=== PATIENT | male | born 1965 | race Caucasian/White ===

== ENCOUNTER 2016-08-02 01:42 | Inpatient (IN) | payer OTHER ==
[~2016-08-02] VITALS: Ht 185.4 cm; Wt 95.8 kg
[~2016-08-02 01:42] MED LIST: ALBU18HF INHALATION; ASPI81TA3 PO; CARV3.1260 PO; FLUO40CA10 PO; FURO-110 PO; FURO20TA3 PO; LANT3I SC; MIRT30TA PO
[2016-08-02] MEDS ORDERED: SOD CHLORIDE 0.9% 1,000 ML IV STA (01:47)
[2016-08-02] MEDS ORDERED: ASPIRIN 325 MG TAB PO STA (01:47)
[2016-08-02 01:49] VITALS: Ht 185.4 cm; Wt 95.8 kg
[2016-08-02] MEDS ORDERED: AMIODARONE 150MG/D5W BOLUS 100 ML IV ONE (02:00)
[2016-08-02] MEDS ORDERED: AMIODARONE 900 MG in DEXTROSE 5% 482 ML IV SCH (02:00)
--- NOTE | 2016-08-02 02:07 | ERA ---
ER Documentation Chief Complaint Date/Time DATE: 08/02/16 TIME: 02:01 Chief Complaint called ems for weakness with witnessed cardiac arrest by rescue 89 HPI Patient is a 51-year-old gentleman who apparently had EMS come to him earlier today for dizziness and passing out. He refused to go with EMS at that time. He then had EMS called out to him once again for weakness dizziness and passing out. He was ambulating to the ambulance when he passed out in front of them and had seizure-like activity. He fell to the ground and they attached the AED to him as they noted he was apneic and pulseless. Patient was noted to have V. tach at that time. They electrically cardioverted him at which point he regained his pulse and spontaneous respirations. They transported him here for further evaluation and treatment. At this time the patient's complaints involve only a headache where he states he fell to the ground and hit his head. He admits to me that he uses alcohol and drugs including marijuana and methamphetamines. He states last time he used methamphetamines was 2 days ago. He says he has been told in the past that he has heart problems but is not sure what his heart problems are. He says he does not have any stents and he has never had any heart surgery. He says he is not been having any chest pain per se and does not feel short of breath. He says just before he feels dizzy and passes out he does feel like his heart is beating funny. He has not had any recent fever, coughing, congestion, rhinorrhea, sore throat, or otalgia. He has not been sick with any nausea, vomiting, or diarrhea. The remainder of the systems are negative. ROS All systems reviewed and are negative except as per history of present illness. Medications Home Meds Active Scripts Insulin Glargine* (Lantus*) 100 Unit/Ml Soln, 12 UNIT SC QHS, #1 VIAL Please dispense 15 syringes and needles. Prov:KACY JESSICA NP 04/10/16 Carvedilol* (Carvedilol*) 3.125 Mg Tablet, 3.125 MG PO BID, #30 TAB Prov:KACY JESSICA. MELYSSA 04/10/16 Furosemide* (Furosemide*) 20 Mg Tablet, 20 MG PO BID, #30 TAB Prov:KACY JESSICA NP 04/10/16 Aspirin* (Aspirin* Chew) 81 Mg Tab.chew, 81 MG PO DAILY, #15 TAB.CHEW Prov:KACY JESSICA NP 04/10/16 Albuterol Sulfate* (Ventolin HFA*) 18 Gm Hfa.aer.ad, 2 PUFF INHALATION Q4H, #1 INHALER Prov:KACY JESSICA NP 04/10/16 Insulin Glargine* (Lantus*) 100 Unit/Ml Soln, 12 UNIT SC QHS, #1 VIAL Prov:PHILIPP YOUNG NP 02/11/16 Furosemide* (Lasix*) 20 Mg Tablet, 20 MG PO BID for 30 Days, TAB Prov:PHILIPP YOUNG NP 02/11/16 Aspirin (Aspirin) 81 Mg Chew, 81 MG PO DAILY for 30 Days, TAB Prov:PHILIPP YOUNG NP 02/11/16 Carvedilol* (Carvedilol*) 3.125 Mg Tablet, 3.125 MG PO BID for 30 Days, TAB Prov:PHILIPP YOUNG NP 02/11/16 Reported Medications Albuterol Sulfate* (Ventolin HFA*) 18 Gm Hfa.aer.ad, 2 PUFF INHALATION Q4H, #1 INHALER 02/06/16 Mirtazapine* (Remeron*) 30 Mg Tablet, 30 MG PO BID, TAB 02/06/16 Fluoxetine Hcl* (Prozac*) 40 Mg Capsule, 80 MG PO BID, CAP 02/06/16 Allergies Allergies: Coded Allergies: erythromycin base (Verified Allergy, Unknown, hives, SOB, 04/10/16) PMhx/Soc History of Surgery: Yes (R knee) Anesthesia Reaction: No Hx Neurological Disorder: No Hx Respiratory Disorders: Yes (asthma) Hx Cardiac Disorders: Yes (HTN, cardiac arrest 08/02/16) Hx Psychiatric Problems: Yes (Depression, anxiety, paranoid schizophrenia, bipolar) Hx Miscellaneous Medical Probl: Yes (DM, stroke) Hx Alcohol Use: Yes (quit after dmm dx) Hx Substance Use: Yes (meth and marijuana) Hx Tobacco Use: Yes (quit 1 month) Smoking Status: Former smoker FmHx Family History: coronary disease, diabetes Physical Exam Vitals Vital Signs Date Time Temp Pulse Resp B/P Pulse Ox O2 Delivery O2 Flow Rate FiO2 08/02/16 01:58 Non Rebreather 15 08/02/16 01:49 Non Rebreather 15.0 08/02/16 01:49 97.7 114 24 130/114 Physical Exam Const: [] Well-developed well-nourished male lying on the bed in mild distress. Head: Atraumatic normocephalic Eyes: Normal Conjunctiva ENT: Normal External Ears, Nose and Mouth. Neck: Full range of motion..~ No meningismus. Resp: Clear to auscultation bilaterally Cardio: Tachycardic regular rhythm, no murmurs Abd: Soft, non tender, non distended. Normal bowel sounds Skin: No petechiae or rashes Back: No midline or flank tenderness Ext: No cyanosis, or edema Neur: Awake and alert, oriented 3, GCS of 15, nonfocal Psych: Normal Mood and Affect Result Diagram: 08/02/168 08/02/16 0158 Results 24 hrs Laboratory Tests Test 08/02/16 01:58 Activated Partial Thromboplast Time 26.5Sec Alanine Aminotransferase (ALT/SGPT) 28IU/L Albumin 3.9g/dl Albumin/Globulin Ratio 1.08 Alkaline Phosphatase 97IU/L Anion Gap 29 Aspartate Amino Transf (AST/SGOT) 39IU/L Basophils # 0.010^3/ul Basophils % 0.3% Blood Urea Nitrogen 41mg/dl Calcium Level 9.2mg/dl Carbon Dioxide Level 13mmol/L Chloride Level 109mmol/L Creatinine 1.81mg/dl Direct Bilirubin 0.00mg/dl Eosinophils # 0.010^3/ul Eosinophils % 0.3% Ethyl Alcohol Level < 10.0mg/dl Globulin 3.60g/dl Glucose Level 152mg/dl Hematocrit 47.2% Hemoglobin 14.4g/dl INR International Normalized Ratio 1.56 Indirect Bilirubin 0.9mg/dl Lymphocytes # 2.410^3/ul Lymphocytes % 22.9% Mean Corpuscular Hemoglobin 27.6pg Mean Corpuscular Hemoglobin Concent 30.5g/dl Mean Corpuscular Volume 90.6fl Mean Platelet Volume 11.2fl Monocytes # 0.710^3/ul Monocytes % 6.4% Neutrophils # 7.210^3/ul Neutrophils % 68.9% Nucleated Red Blood Cells # 0.010^3/ul Nucleated Red Blood Cells % 0.4/100WBC Platelet Count 24797^3/UL Potassium Level 5.4mmol/L Prothrombin Time 18.8Sec Prothrombin Time Ratio 1.5 Red Blood Count 5.2110^6/ul Red Cell Distribution Width 20.8% Sodium Level 146mmol/L Total Bilirubin 0.9mg/dl Total Protein 7.5g/dl Troponin I 0.059ng/ml White Blood Count 10.410^3/ul Current Medications Medications (Trade) Dose Ordered Sig/Bradley Route PRN Reason Start Time Stop Time Status Last Admin Dose Admin Sodium Chloride (NS) 1,000 ml @ 1,000 mls/hr Q1H STAT IV 08/02/16 01:47 08/02/16 02:46 DC 08/02/16 02:38 Aspirin 325 mg 325 mg ONCE STAT PO 08/02/16 01:47 08/02/16 01:51 DC 08/02/16 02:38 Amiodarone HCl 100 ml @ 600 mls/hr ONCE ONCE IV 08/02/16 02:00 08/02/16 02:09 DC 08/02/16 02:37 Amiodarone HCl/ Dextrose (Cordarone Iv/ D5W) 500 ml @ 0 mls/hr Q0M IV 08/02/16 02:00 08/03/16 01:59 08/02/16 03:15 Procedures/MDM Differential includes but is not limited to, V. tach, respiratory arrest, cardiac arrest, cardiomyopathy secondary to alcohol and drug abuse, acute myocardial ischemia, electrolyte disturbance CT of the head shows encephalomalacia consistent with a prior infarct but no acute findings per the radiologist Chest x-ray shows cardiomegaly but no acute congestive heart failure or pulmonary edema CT of the abdomen and pelvis shows findings of possible colitis patient also has findings consistent with a ascites EKG demonstrates sinus tachycardia 105 bpm patient has Q waves noted in leads III and aVF, poor R-wave progression noted across the precordium with nonspecific ST-T wave flattening, no acute ST changes consistent with acute ischemia noted, no old EKG available for comparison Repeat EKG demonstrates no acute changes compared to the prior EKG Patient has been on amiodarone drip now for control of his prior V. tach. He has not had any recurrent V. tach. I have a call out to Dr. Domingo to have the patient admitted to the CCU. critical care time of 1 hour not to include procedures. 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
[2016-08-02 02:16] LABS: ADD SCAN DIFF NO
[2016-08-02 02:21] LABS: BASOPHILS % 0.3 % (0.0-2.0); EOSINOPHILS % 0.3 % (0.0-7.0); HEMATOCRIT 47.2 % (42.0-52.0); HEMOGLOBIN 14.4 g/dl (14.0-18.0); LYMPHOCYTES # 2.4 10^3/ul (0.8-2.9); LYMPHOCYTES % 22.9 % (15.0-51.0); MEAN CORPUSCULAR HEMOGLOBIN 27.6 pg (29.0-33.0); MEAN CORPUSCULAR HGB CONC 30.5 g/dl (32.0-37.0); MEAN CORPUSCULAR VOLUME 90.6 fl (82.0-101.0); MEAN PLATELET VOLUME 11.2 fl (7.4-10.4); MONOCYTE # 0.7 10^3/ul (0.3-0.9); MONOCYTES % 6.4 % (0.0-11.0); NEUTROPHIL # 7.2 10^3/ul (1.6-7.5); NEUTROPHILS % 68.9 % (39.0-77.0); NUCLEATED RED BLOOD CELLS% 0.4 /100WBC (0.0-0.0); PLATELET COUNT 197 10^3/UL (140-415); RED BLOOD COUNT 5.21 10^6/ul (4.70-6.10); RED CELL DISTRIBUTION WIDTH 20.8 % (11.5-14.5); WHITE BLOOD COUNT 10.4 10^3/ul (4.8-10.8)
--- NOTE | 2016-08-02 02:23 | RADRPT ---
PROCEDURE: CT BRAIN WITHOUT CONTRAST CLINICAL INDICATION: 51-year-old male with syncope and trauma. TECHNIQUE: The study was performed utilizing [employer] VCT 64-slice CT scanner. Direct axial sections were obtained from the foramen magnum to the vertex without the use of intravenous contrast material. Sagittal and coronal reformations were obtained. Automated exposure control and iterative reconstruction techniques were utilized for this examination. The images were viewed on a PACS wor kstation. CTD/vol = 38.8 mGy; Total Exam DLP = 634.2 mGy-cm. COMPARISON: CT brain February 08, 2016. FINDINGS: There is mild motion artifact limiting the evaluation to some extent. There is mild prominence of t he sulci and cisternal spaces consistent with diffuse volume loss. Otherwise, the ventricles have a normal shape and position. There is no evidence for mass effect or midline shift. There has interva l development of old lacunar infarct within the right basal ganglia. There is focal right parietal encephalomalacia consistent with a watershed infarct. There is a small nonspecific ovoid calcific de nsity within the right suprasellar cistern measuring 5 x 4 x 4 mm without interval change. There is no evidence for acute intra or extra-axial blood. The bony calvarium is intact. The visualized paran leila sinuses and right mastoid air cells are without abnormal soft tissue. No air-fluid levels are n oted. There is fluid identified within the left mastoid air cells and epitympanum consistent with ot omastoid disease. IMPRESSION: 1. Motion artifact. 2. Mild diffuse volume loss. 3. Old right basal ganglia lacunar infarct. 4. Focal right parietal encephalomalacia consistent with a prior watershed infarct. 5. Nonspecific ovoid calcific density within the right suprasellar cistern without interval change. 6. Left otomastoid disease. .Neeraj Melvin MD, MD Date Time Electronically viewed and signed by .Neeraj Melvin MD, MD on 08/02/2016 02:23 .Sanjuanita/
[2016-08-02 02:32] LABS: INR 1.56; PROTIME 18.8 Sec (12.2-14.2); PT RATIO 1.5
[2016-08-02 02:33] LABS: PARTIAL THROMBOPLASTIN TIME 26.5 Sec (25.0-35.0)
[2016-08-02 02:37] LABS: ALBUMIN 3.9 g/dl (3.3-4.9)
[2016-08-02 02:38] LABS: POTASSIUM 5.4 mmol/L (3.5-5.1)
[2016-08-02 02:40] LABS: ALBUMIN/GLOBULIN RATIO 1.08; BILIRUBIN,INDIRECT 0.9 mg/dl (0-1.1); BILIRUBIN,TOTAL 0.9 mg/dl (0.2-1.3); CALCIUM 9.2 mg/dl (8.4-10.2); CREATININE 1.81 mg/dl (0.61-1.24); TOTAL PROTEIN 7.5 g/dl (6.1-8.1)
--- NOTE | 2016-08-02 02:42 | RADRPT ---
PROCEDURE: XR Chest. CLINICAL INDICATION: Chest pain. TECHNIQUE: Single frontal chest x-ray. COMPARISON: 03/19/2016 FINDINGS: Heart is enlarged.. There is no CHF.. There is hypoventilation with minimal right basilar atelectas is.. There is no pleural effusion. There is no pneumothorax. The osseous structures are unremarka ble. IMPRESSION: Cardiomegaly. No CHF. Hypoventilation with minimal right basilar atelectasis RPTAT: HMVK .Patel Amato MD, Date Time Electronically viewed and signed by .Patel Amato MD, on 08/02/2016 02:41 .K/
[2016-08-02 02:51] LABS: TROPONIN-I 0.059 ng/ml (0.00-0.12)
--- NOTE | 2016-08-02 04:07 | RADRPT ---
PROCEDURE: CT abdomen and pelvis without intravenous contrast. CLINICAL INDICATION: Pain. TECHNIQUE: CT of the abdomen/pelvis was performed utilizing axial images with reconstructions in s agittal and coronal planes. The administered radiation dose is CTDI 14.2 mGy, DLP 906.3 mGy-cm. COMPARISON: No pertinent prior examinations were submitted for comparison. FINDINGS: Visualized Chest: The visualized lung bases are clear. Abdomen: The spleen, pancreas, gallbladder,and adrenal glands are unremarkable. The liver is diffusely dec reased in attenuation, compatible with hepatic steatosis. The kidneys are without hydronephrosis. No definite urinary calculi are seen. There is no evidence of bowel obstruction. The appendix is normal. No intra-abdominal free air is seen. There is some segmental thickening of the right colon and mid to distal transverse colon. There is moderate intra-abdominal ascites. Pelvis: There is moderate ascites within the pelvis. The prostate is unremarkable. The urinary bladder is collapsed around a urinary catheter. There are small bilateral inguinal hernias. Both testicles ar e seen within the inguinal canals. No pelvic adenopathy is identified Osseous structures: Unremarkable. IMPRESSION: Moderate ascites. Hepatic steatosis. Segmental thickening of the right colon and distal transverse colon which may be related to ascites or colitis. Retractile testicles. RPTAT: HIKT .Adolfo Hennessy MD, MD Date Time Electronically viewed and signed by .Adolfo Hennessy MD, on 08/02/2016 04:06 .T/
[2016-08-02] MEDS ORDERED: DIPHENHYDRAMINE 50 MG INJ IV ONE (05:30)
[2016-08-02] MEDS ORDERED: HALOPERIDOL 5 MG INJ IV ONE (05:30)
[2016-08-02] MEDS ORDERED: SOD CHLORIDE 0.9% 1,000 ML IV ONE ×2 (08:00→20:30)
[2016-08-02] MEDS ORDERED: Discontinue Glyburide, Glipizide, and/or Glimepiride prior to starting Insulin XX ONE (09:00)
[2016-08-02] MEDS ORDERED: FUROSEMIDE 20 MG TAB PO SCH ×2 (09:00→10:15)
[2016-08-02] MEDS ORDERED: NITROGLYCERIN (SL) 0.4 MG TAB SL PRN (09:00)
[2016-08-02] MEDS ORDERED: ALBUTEROL HFA 8 GM INHALER INH SCH (09:00)
[2016-08-02] MEDS ORDERED: ONDANSETRON 4 MG INJ IV PRN (09:00)
[2016-08-02] MEDS ORDERED: LORAZEPAM 2 MG INJ IV PRN (09:00)
[2016-08-02] MEDS ORDERED: MAGNESIUM HYDROXIDE 30ML CUP PO PRN (09:00)
[2016-08-02] MEDS ORDERED: ASPIRIN 81 MG TAB PO SCH (09:00)
[2016-08-02] MEDS ORDERED: HYPOGLYCEMIA PROTOCOL when Glucose is <70 mg/dL or symptomatic <90 mg/dL. XX ONE (09:00)
[2016-08-02] MEDS ORDERED: FLUMAZENIL 0.5 MG INJ IV PRN (09:00)
[2016-08-02] MEDS ORDERED: ACETAMINOPHEN 650MG/20.3ML CUP PO PRN (09:00)
[2016-08-02] MEDS ORDERED: ACETAMINOPHEN 325 MG TAB PO PRN (09:00)
[2016-08-02] MEDS: MIRTAZAPINE 15 MG TAB PO SCH ×2 (09:00→23:14)
[2016-08-02] MEDS ORDERED: DOCUSATE SODIUM 100 MG CAP PO PRN (09:00)
[2016-08-02] MEDS: ASPIRIN 81 MG TAB PO SCH (09:00)
[2016-08-02] MEDS ORDERED: BISACODYL (EC) 5 MG TAB PO PRN (09:00)
[2016-08-02] MEDS: ALBUTEROL HFA 8 GM INHALER INH SCH ×2 (09:00→13:00)
[2016-08-02] MEDS ORDERED: NALOXONE (0.4 MG/ML) INJ IV PRN (09:00)
[2016-08-02] MEDS: FLUOXETINE 20 MG CAP PO SCH (09:00)
[2016-08-02] MEDS ORDERED: GLUCOSE GEL 15 GRAM TUBE PO PRN ×2 (10:00)
[2016-08-02] MEDS ORDERED: DEXTROSE 50% 50 ML SYRINGE IV PRN ×2 (10:00)
[2016-08-02] MEDS ORDERED: GLUCOSE GEL 15 GRAM TUBE BUCCAL PRN (10:00)
[2016-08-02] MEDS ORDERED: GLUCAGON 1 MG INJ IM PRN (10:00)
[2016-08-02 10:14] LABS: AADO2 Arterial 30.7 mmHg (7.0-24.0); Allen Test ACCEPTAB; Arterial Base Excess -22.9 mmol/L (-3.0-3); Arterial COHb 0.5 % (0.0-3.0); Arterial Fraction of Oxyhgb 96.8 % (93.0-99.0); Arterial HCO3 4.6 mmol/L (22.0-26.0); Arterial MetHb 0.3 % (0.0-1.5); Arterial Total Hemglobin 15.4 g/dl (12.0-18.0); MODE NASAL CANNULA
[2016-08-02 10:16] LABS: CK-MB 6.21 ng/ml (0.0-2.4)
[2016-08-02 10:17] LABS: TROPONIN-I 0.105 ng/ml (0.00-0.12)
[2016-08-02] MEDS: INSULIN ASPART [NOVOLOG] 3 ML PEN SC SCH (12:00)
--- NOTE | 2016-08-02 12:51 | QN ---
Documentation Comment [id number] ANDREAS FRANCISCO MD Aug 02, 2016 12:51
[2016-08-02 13:19] LABS: CHOL/HDL RATIO 6.5 RATIO
[2016-08-02 15:13] LABS: CK-MB 7.18 ng/ml (0.0-2.4)
[2016-08-02 15:14] LABS: TROPONIN-I 0.127 ng/ml (0.00-0.12)
[2016-08-02 16:29] LABS: HEMATOCRIT 48.1 % (42.0-52.0); HEMOGLOBIN 13.8 g/dl (14.0-18.0)
[2016-08-02] MEDS ORDERED: DEXTROSE 50% 50 ML SYRINGE IV STA (16:31)
--- NOTE | 2016-08-02 16:44 | HP ---
DATE OF ADMISSION: 08/02/2016 HISTORY OF PRESENT ILLNESS: Humberto Hopkins is a 51-year-old male who has a history of systolic heart failure, cardiomyopathy, ejection fraction 25%, non- ST elevation myocardial infarction, history of CKD, transaminitis, diabetes, drug abuse, history of anxiety disorder, pulmonary hypertension, presented with shortness of breath, noted to have cardiac arrhythmia. Patient has been also using drugs per patient and is being admitted for further management. Patient's blood pressure 105/84, pulse 65, and patient is denying any chest pain , palpitations right now. Patient's laboratory data done in the ER shows WBC 10.4, hematocrit 47.2, platelet count of 197. Sodium 146, potassium 5.4, BUN 21, creatinine 1.81, patient's troponin is 0.105. Patient CT abdomen and pelvis done shows moderate ascites, hepatic steatosis, segmental thickening of the right colon and distal transverse colon, which may be related to ascites or colitis. This was the report. Brain CT scan shows motion artifact, mild diffuse volume loss, old right basal ganglia lymph node infarction, focal right parietal encephalomalacia , nonspecific ovoid calcific density, left otomastoid disease. PAST MEDICAL HISTORY: As mentioned above. ALLERGIES: . SOCIAL HISTORY: Smoking positive, and drug abuse. MEDICATION HISTORY: Includes patient is on: 1. Albuterol. 2. Aspirin. 3. Coreg. 4. Prozac. 5. Lasix. 6. Insulin. 7. Remeron. REVIEW OF SYSTEMS HEENT: Unremarkable. RESPIRATORY: Unremarkable. CARDIOVASCULAR: No chest pain now. ABDOMEN: No dyspepsia. EXTREMITIES: Swelling. CENTRAL NERVOUS SYSTEM: Unremarkable. PHYSICAL EXAMINATION: GENERAL: The patient is awake, alert. VITAL SIGNS: Pulse 65, blood pressure 105/54. HEAD: Atraumatic, normocephalic. Pupils equal, reactive to light. Pale conjunctivae. NECK: Supple. LUNGS: Basilar rales. CARDIOVASCULAR: S1, S2 normal. ABDOMEN: Distended. Bowel sounds positive. Ascites appreciated. EXTREMITIES: No cyanosis, clubbing. Edema positive. CENTRAL NERVOUS SYSTEM: The patient is awake and alert with no focal deficit. LABORATORY DATA: As mentioned above. IMPRESSION: 1. Cardiac arrhythmia, status post ventricular tachycardia. Started on amiodarone drip in the ER 2. Hypertension. 3. Hyperkalemia. 4. Chronic kidney disease. 5. Electrolyte imbalance. 6. Ascites. 7. Drug abuse. 8. Systolic heart failure. PLAN: Continue home medication, continue to obtain cardiology consultation. Patient to be on Protonix. Please make note, patient has diabetes and is on sliding scale. The patient is on furosemide changed to IV. Patient is also on albuterol, , Prozac, nitro. Electrolytes will be monitored. Dictated By: ANDREAS FRANCISCO MD BS/EDILIA Conf#: [id number] DID#: [id number] MTDD
[2016-08-02 16:45] VITALS: TEMP 97.6
[2016-08-02] MEDS ORDERED: DEXTROSE 5% 1,000 ML IV SCH (17:30)
[2016-08-02] MEDS ORDERED: FUROSEMIDE (10 MG/ML) IV SYG IV ONE (17:30)
[2016-08-02] MEDS ORDERED: FUROSEMIDE 40 MG INJ ONE (17:51)
[2016-08-02] MEDS ORDERED: FUROSEMIDE 40 MG INJ IV ONE (18:00)
--- NOTE | 2016-08-02 19:17 | CONS ---
DATE OF ADMISSION: 08/02/2016 DATE OF CONSULTATION: 08/02/2016 TYPE OF CONSULTATION: Cardiology. REFERRING PHYSICIAN: Richard Francisco MD REASON FOR EVALUATION: Cardiomyopathy, history of ventricular tachycardia. HISTORY OF PRESENT ILLNESS: Mr. Hopkins is a 51-year-old gentleman with a history of hypertension , cardiomyopathy, history of drug abuse in the past, history of medical noncompliance [facility] evaluation of cardiac arrhythmia and cardiac arrest. The patient was in cardio genic shock with low blood pressure and reduced urine output. I have been asked to see the patient in consultation for further risk stratification. Currently, the acute order is to remove the fluid for volume. The patient does not make any urine, had a Sanchez catheter placed, I will recommend for him to be diuresed aggressively with IV Lasix, including [place], pressor support is required. The amber buchanan is still awaiting transfer to intensive care unit. For now, will continue medical optimizatio n with diuresis as well as afterload reduction as much as his blood pressure will tolerate. PAST MEDICAL HISTORY: 1. Hypertension. 2. Dyslipidemia. 3. History of cardiomyopathy, last EF of 25%. 4. Prior history of VT. 5. Renal disease. 6. Transaminitis. 7. Polysubstance abuse. 8. Pulmonary hypertension. ALLERGIES: NO KNOWN DRUG ALLERGIES. SOCIAL HISTORY: The patient has a history of tobacco use and polysubstance abuse. MEDICATIONS: I do not think the patient was compliant with his medical therapy. Currently, he is r eceiving Lasix, amiodarone drip and antibiotics. REVIEW OF SYSTEMS: CONSTITUTIONAL: No fevers, no chills. Patient with generalized malaise. Shortness of breath. HEENT: No changes in vision or hearing. CARDIAC: No chest pain reported now, cardiomyopathy with VT. RESPIRATORY: Shortness of breath, acute on chronic. GASTROINTESTINAL: Abdominal distention. GENITOURINARY: No dysuria, hematuria. Decrease in output. EXTREMITIES: Lower extremity edema. PHYSICAL EXAMINATION: VITAL SIGNS: Temperature 98.7, heart rate 58, blood pressure 110/60. GENERAL: He is a thin gentleman in no acute distress, alert x2 to 3 in discomfort. NECK: JVD is 9 to 10 cm with no lymphadenopathy. HEART: Regular with PMI displaced leftward. There is an S3 that I can hear. LUNGS: Coarse throughout. ABDOMEN: Distended, bowel sounds are present. GENITOURINARY: Exam is intact. EXTREMITIES: No clubbing, cyanosis or edema. ECG read by me shows sinus rhythm low voltage. LABORATORY DATA: White blood cell count 10.4, hemoglobin 13.8, platelets 197. INR is 1.56. Sodium 146. Troponin is 0.128. ASSESSMENT AND PLAN: 1. Cardiomyopathy. The patient has severe cardiomyopathy, now with CHF, acute on chronic. Will ne ed to support the patient's blood pressure while diuresis goes on. Recommend IV Lasix now with press ure support in the form probably dopamine and dobutamine as indicated. I do not think the patient w ill tolerate significant degree of outflow reduction at this point awaiting diuresis. 2. Acute renal failure. Creatinine is elevated. The patient has a very poor urine output now. Dr Cynthia Francisco follows. 3. History of polysubstance abuse, DCA device. We will discuss once the patient is more hemodynami karina stable. 4. History of ventricular tachycardia. The patient now on amiodarone. Continue to monitor. 5. Elevated troponins in the setting of acute cardiomyopathy, probably cardiomyopathy related. Will follow. A 2D echo is expected. 6. Electrolyte abnormality. Continue to keep electrolytes in chart. I would like to thank Dr. Francisco for referring this patient for my evaluation. Dictated By: ROEL BLACK MD ML/NTS Conf#: [id number] DID#: [id number] CC: RICHARD FRANCISCO MD;*EndCC*
[2016-08-02 20:40] VITALS: PULSE 55
[2016-08-02] MEDS: INSULIN GLARGINE [LANtus] 3 ML PEN SC SCH (21:00)
[2016-08-02] MEDS ORDERED: ZOLPIDEM 5 MG TAB PO PRN (21:00)
[2016-08-02] MEDS ORDERED: FUROSEMIDE 20 MG INJ IV ONE (21:00)
[2016-08-02] MEDS ORDERED: INSULIN GLARGINE [LANtus] 3 ML PEN SC SCH (21:00)
[2016-08-02] MEDS: morphine 2 MG INJ IV PRN (21:08)
[2016-08-02 21:27] VITALS: BP 111/94; RESP 19
[2016-08-02 22:00] VITALS: BP 115/84; PULSE 58; RESP 18
[2016-08-02 23:00] VITALS: BP 119/86; PULSE 60; RESP 21
[2016-08-03] VITALS (24 sets, daily range): BP systolic 85–125; BP diastolic 55–100; PULSE 61–96; RESP 15–23
[2016-08-03] MEDS: FLUOXETINE 20 MG CAP PO SCH ×3 (00:58→21:00)
[2016-08-03 02:51] LABS: AADO2 Arterial 40.6 mmHg (7.0-24.0); Allen Test ACCEPTAB; Arterial Base Excess -20.8 mmol/L (-3.0-3); Arterial COHb 0.6 % (0.0-3.0); Arterial Fraction of Oxyhgb 97.7 % (93.0-99.0); Arterial HCO3 4.9 mmol/L (22.0-26.0); Arterial MetHb 0.2 % (0.0-1.5); Arterial Total Hemglobin 14.6 g/dl (12.0-18.0); MODE NASAL CANNULA
[2016-08-03] MEDS ORDERED: NA BICARBONATE 8.4% 50 ML SYG IV STA ×2 (04:55)
[2016-08-03] MEDS ORDERED: SODIUM BICARBONATE (IV ADD) 100 MEQ in DEXTROSE 5% 1,000 ML IV SCH (05:00)
[2016-08-03] MEDS: SODIUM BICARBONATE (IV ADD) 100 MEQ in DEXTROSE 5% 1,000 ML IV SCH (05:29)
[2016-08-03] MEDS: morphine 2 MG INJ IV PRN (05:32)
[2016-08-03] MEDS ORDERED: PANTOPRAZOLE 40 MG INJ IV SCH (06:00)
[2016-08-03 06:14] LABS: ADD SCAN DIFF NO
[2016-08-03 06:29] LABS: ALBUMIN 3.4 g/dl (3.3-4.9)
[2016-08-03 06:31] LABS: BILIRUBIN,DIRECT 1.5 mg/dl (0.00-0.20); BILIRUBIN,INDIRECT 0.8 mg/dl (0-1.1); BILIRUBIN,TOTAL 2.3 mg/dl (0.2-1.3); CREATININE 2.58 mg/dl (0.61-1.24)
[2016-08-03 06:32] LABS: ALBUMIN/GLOBULIN RATIO 0.97; CALCIUM 8.5 mg/dl (8.4-10.2); TOTAL PROTEIN 6.9 g/dl (6.1-8.1)
[2016-08-03 06:50] LABS: BASOPHILS % 0.2 % (0.0-2.0); MEAN CORPUSCULAR HGB CONC 29.7 g/dl (32.0-37.0); RED BLOOD COUNT 5.04 10^6/ul (4.70-6.10)
[2016-08-03 06:55] LABS: HEMATOCRIT 47.2 % (42.0-52.0); LYMPHOCYTES # 1.3 10^3/ul (0.8-2.9); LYMPHOCYTES % 6.7 % (15.0-51.0); MEAN CORPUSCULAR HEMOGLOBIN 27.8 pg (29.0-33.0); MEAN CORPUSCULAR VOLUME 93.7 fl (82.0-101.0); MEAN PLATELET VOLUME 12.2 fl (7.4-10.4); MONOCYTE # 0.7 10^3/ul (0.3-0.9); MONOCYTES % 3.5 % (0.0-11.0); NEUTROPHIL # 16.7 10^3/ul (1.6-7.5); NEUTROPHILS % 89.1 % (39.0-77.0); NUCLEATED RED BLOOD CELLS # 0.1 10^3/ul (0.0-0.0); NUCLEATED RED BLOOD CELLS% 0.7 /100WBC (0.0-0.0); PLATELET COUNT 103 10^3/UL (140-415); RED CELL DISTRIBUTION WIDTH 20.4 % (11.5-14.5); WHITE BLOOD COUNT 18.7 10^3/ul (4.8-10.8)
[2016-08-03 07:09] LABS: POTASSIUM 6.1 mmol/L (3.5-5.1)
[2016-08-03] MEDS: ASPIRIN 81 MG TAB PO SCH (09:00)
[2016-08-03] MEDS: MIRTAZAPINE 15 MG TAB PO SCH ×2 (09:00→21:00)
--- NOTE | 2016-08-03 10:55 | CONS ---
Date/Time of Note Date/Time of Note DATE: 08/03/16 TIME: 10:53 Assessment/Plan Assessment/Plan Additional Assessment/Plan 1. Cardiomyopathy. The patient has severe cardiomyopathy, now with CHF, acute on chronic. Will need to support the patient's blood pressure while diuresis goes on - now pt in ICU, BP stable - making some urine - refused HD - Dr. Domingo will follow. 2. Acute renal failure. Creatinine is elevated. The patient has a very poor urine output now. Dr. Domingo follows. 3. History of polysubstance abuse. We will discuss once the patient is more hemodynamically stable. 4. History of ventricular tachycardia. The patient now on amiodarone. Continue to monitor. In sinus now. 5. Elevated troponins in the setting of acute cardiomyopathy, probably cardiomyopathy related. Will follow. A 2D echo is expected with low EF. 6. Electrolyte abnormality. Continue to keep electrolytes in chart. Consultation Date/Type/Reason Admit Date/Time Aug 02, 2016 at 08:32 Initial Consult Date 24 HR Interval Summary Free Text/Dictation No acute change - refusing HD now - BP stable - will try to remove volume as tolerated. ROS: No fever, no chills, no nausea, no vomiting, no diarrhea/constipation No recent weight changes No chest pain, no PND, no orthopnea No dizziness, blurred vision No thirst, no heat or cold intolerance + SOB/malaise Exam/Review of Systems Vital Signs Vitals Vital Signs Date Time Temp Pulse Resp B/P Pulse Ox O2 Delivery O2 Flow Rate FiO2 08/03/16 08:00 81 08/03/16 07:45 Nasal Cannula 3.0 08/03/16 07:00 97.8 20 109/88 100 Intake and Output 08/02/16 08/02/16 08/03/16 15:00 23:00 07:00 Intake Total 120 ml 390 ml Output Total 215 ml Balance 120 ml 175 ml Exam General: WN/WD/NAD, AOx 2-3 aware HEENT: Unicetric/atraumatic/EOMI (follows commands) NECK: JVD elevated, no thyromegaly Lymph: no lymphadenopathy HEART: regular with no S3, II/ systolic murmur at apex. PMI left LUNGS: Coarse sounds ABD: soft, NT, ND, +BS : Intact Neuro: non focal SKIN: chronic changes EXT: + edema Results Result Diagram: 08/03/16 0535 08/03/16 0535 Results 24 hrs Laboratory Tests Test 08/02/16 13:51 08/02/16 13:57 08/02/16 14:09 08/02/16 14:35 Bedside Glucose 27 *L 40 *L 131 Creatine Kinase 177 Creatine Kinase Index 4.1 Creatinine Kinase MB (Mass) 7.18 H Troponin I 0.127 *H Test 08/02/16 14:56 08/02/16 15:44 08/02/16 16:14 08/02/16 16:28 Bedside Glucose 96 63 L Stool Occult Blood POSITIVE Hematocrit 48.1 Hemoglobin 13.8 L Test 08/02/16 17:01 08/02/16 18:07 08/02/16 19:20 08/02/16 23:50 Bedside Glucose 115 128 123 97 Test 08/03/16 02:40 08/03/16 03:50 08/03/16 05:35 08/03/16 07:45 Arterial Blood HCO3 4.9 *L Arterial Blood Base Excess -20.8 L Arterial Blood Oxygen Saturation 98.5 H Oleksandr Test ACCEPTAB Arterial Blood Gas Puncture Site Right Radial Arterial Blood Carboxyhemoglobin 0.6 Arterial Blood Date Drawn 08/03/2016 2:40:53 AM Arterial Blood Methemoglobin 0.2 Arterial Blood pCO2 (Temp correct) 13.5 L Arterial Blood pH (Temp corrected) 7.179 *L Arterial Blood pO2 (Temp corrected) 157.4 H Blood Gas A-a O2 Differential 40.6 H Blood Gas Critical Value Read Back MARILYN JEAN Blood Gas Modality NASAL CANNULA Blood Gas Notified Time 08/03/2016 2:49:35 AM Blood Gas Notified Whom ME Blood Gas Specimen Source Blood arterial Blood Gas Temperature 37.0 FiO2 30.0 Oxyhemoglobin Percent 97.7 Total Hemoglobin 14.6 Bedside Glucose 86 Alanine Aminotransferase (ALT/SGPT) 1387 H Albumin 3.4 Albumin/Globulin Ratio 0.97 Alkaline Phosphatase 82 Anion Gap 32 H Aspartate Amino Transf (AST/SGOT) Pending Basophils # 0.0 Basophils % 0.2 Blood Urea Nitrogen 50 H Calcium Level 8.5 Carbon Dioxide Level 11 L Chloride Level 107 Creatinine 2.58 H Direct Bilirubin 1.50 #H Eosinophils # 0.0 Eosinophils % 0.0 Globulin 3.50 H Glucose Level 113 Hematocrit 47.2 Hemoglobin 14.0 Indirect Bilirubin 0.8 Lymphocytes # 1.3 Lymphocytes % 6.7 L Mean Corpuscular Hemoglobin 27.8 L Mean Corpuscular Hemoglobin Concent 29.7 L Mean Corpuscular Volume 93.7 Mean Platelet Volume 12.2 H Monocytes # 0.7 Monocytes % 3.5 Neutrophils # 16.7 H Neutrophils % 89.1 H Nucleated Red Blood Cells # 0.1 H Nucleated Red Blood Cells % 0.7 H Platelet Count 103 #L Potassium Level 6.1 *H Red Blood Count 5.04 Red Cell Distribution Width 20.4 H Sodium Level 144 Total Bilirubin 2.3 H Total Protein 6.9 White Blood Count 18.7 #H Lactic Acid Level 11.4 *H Medications Medications Current Medications Albuterol (Ventolin Hfa) 2 puff Q4H INH Last administered on 08/02/16 13:00; Admin Dose 2 PUFF; Start 08/02/16 at 09:00 Aspirin (Aspirin) 81 mg DAILY PO Last administered on 08/02/16 09:00; Admin Dose 81 MG; Start 08/02/16 at 09:00 Carvedilol (Coreg) 3.125 mg BID PO ; Start 08/02/16 at 09:00 Fluoxetine HCl (Prozac) 80 mg BID PO Last administered on 08/03/16 00:58; Admin Dose 80 MG; Start 08/02/16 at 09:00 Insulin Glargine (Lantus) 12 unit QHS SC ; Start 08/02/16 at 21:00 Mirtazapine (Remeron) 30 mg BID PO Last administered on 08/02/16 23:14; Admin Dose 30 MG; Start 08/02/16 at 09:00 Flumazenil (Romazicon) 0.2 mg Q1M PRN IV BENZODIAZEPINE OVERDOSE; Start at 09:00 Naloxone HCl (Narcan) 0.4 mg Q3M PRN IV DECREASED REPIRATORY RATE; Start at 09:00 Ondansetron HCl (Zofran Inj) 4 mg Q6H PRN IV NAUSEA AND/OR VOMITING; Start at 09:00 Nitroglycerin (Nitroglycerin (Sl Tab) 0.4 Mg) 1 tab Q5M PRN SL CHEST PAIN; Start 08/02/16 at 09:00 Acetaminophen (Tylenol Tab) 650 mg Q6H PRN PO PAIN LEVEL 1-3 OR FEVER; Start at 09:00 Lorazepam (Ativan) 1 mg Q2H PRN IV ANXIETY; Start 08/02/16 at 09:00 Zolpidem Tartrate (Ambien) 5 mg QHS PRN PO INSOMNIA; Start 08/02/16 at 21:00 Docusate Sodium (Colace) 100 mg Q12H PRN PO CONSTIPATION; Start 08/02/16 at 09: 00 Magnesium Hydroxide (Milk Of Mag) 30 ml DAILY PRN PO CONSTIPATION; Start at 09:00 Bisacodyl (Dulcolax) 5 mg DAILY PRN PO CONSTIPATION; Start 08/02/16 at 09:00 Pantoprazole (Protonix Iv) 40 mg DAILY@06 IV Last administered on 08/03/16 06: 32; Admin Dose 40 MG; Start 08/03/16 at 06:00 Miscellaneous Information 1 ea NOTE XX ; Start 08/02/16 at 10:00 Glucose (Glutose) 15 gm Q15M PRN PO DECREASED GLUCOSE; Start 08/02/16 at 10:00 Glucose (Glutose) 22.5 gm Q15M PRN PO DECREASED GLUCOSE; Start 08/02/16 at 10: 00 Dextrose (D50w Syringe) 25 ml Q15M PRN IV DECREASED GLUCOSE; Start 08/02/16 at 10:00 Dextrose (D50w Syringe) 50 ml Q15M PRN IV DECREASED GLUCOSE Last administered on 08/02/16 14:11; Admin Dose 50 ML; Start 08/02/16 at 10:00 Glucagon (Glucagen) 1 mg Q15M PRN IM DECREASED GLUCOSE; Start 08/02/16 at 10:00 Glucose 15 gm 15 gm Q15M PRN BUCCAL DECREASED GLUCOSE; Start 08/02/16 at 10:00 Sodium Bicarbonate/ Dextrose (Na Bicarb/D5W) 1,100 ml @ 50 mls/hr Q22H IV Last administered on 08/03/16 05:29; Admin Dose 50 MLS/HR; Start 08/03/16 at 05 :30 ROEL BLACK MD Aug 03, 2016 10:55
[2016-08-03] MEDS: INSULIN ASPART [NOVOLOG] 3 ML PEN SC SCH (11:30)
[2016-08-03 15:54] LABS: POTASSIUM 5.3 mmol/L (3.5-5.1)
[2016-08-03 15:57] LABS: CREATININE 2.64 mg/dl (0.61-1.24)
[2016-08-03 15:58] LABS: CALCIUM 8.1 mg/dl (8.4-10.2)
--- NOTE | 2016-08-03 16:38 | PN ---
Date/Time of Note Date/Time of Note DATE: 08/03/16 TIME: 16:36 Assessment/Plan VTE Prophylaxis VTE Prophylaxis Intervention: other Lines/Catheters IV Catheter Type (from Nrsg): Peripheral IV Urinary Cath still in place: Yes Reason Cath still needed: other (indicate) Assessment/Plan Chief Complaint/Hosp Course IMPRESSION: 1. Cardiac arrhythmia, status post ventricular tachycardia. Started on amiodarone drip in the ER 2. Hypertension. 3. Hyperkalemia. 4. Chronic kidney disease. 5. Electrolyte imbalance. 6. Ascites. 7. Drug abuse. 8. Systolic heart failure. 9 gi bleed plan abg lasix per gi [id number] Problems: Subjective 24 Hr Interval Summary Subjective hx not possible: other (weak,no active gi bleed) Exam/Review of Systems Vital Signs Vitals Vital Signs Date Time Temp Pulse Resp B/P Pulse Ox O2 Delivery O2 Flow Rate FiO2 08/03/16 16:00 88 08/03/16 07:45 Nasal Cannula 3.0 08/03/16 07:00 97.8 20 109/88 100 Intake and Output 08/02/16 08/02/16 08/03/16 15:00 23:00 07:00 Intake Total 120 ml 390 ml Output Total 215 ml Balance 120 ml 175 ml Exam Neck: supple Respiratory: diminished breath sounds Cardiovascular: regular rate and rhythm Gastrointestinal: ascites (+), soft Extremities: edema (+) Results Result Diagram: 08/03/16 0535 08/03/16 1510 Results 24 hrs Laboratory Tests Test 08/02/16 17:01 08/02/16 18:07 08/02/16 19:20 08/02/16 23:50 Bedside Glucose 115 128 123 97 Test 08/03/16 02:40 08/03/16 03:50 08/03/16 05:35 08/03/16 07:45 Arterial Blood HCO3 4.9 *L Arterial Blood Base Excess -20.8 L Arterial Blood Oxygen Saturation 98.5 H Oleksandr Test ACCEPTAB Arterial Blood Gas Puncture Site Right Radial Arterial Blood Carboxyhemoglobin 0.6 Arterial Blood Date Drawn 08/03/2016 2:40:53 AM Arterial Blood Methemoglobin 0.2 Arterial Blood pCO2 (Temp correct) 13.5 L Arterial Blood pH (Temp corrected) 7.179 *L Arterial Blood pO2 (Temp corrected) 157.4 H Blood Gas A-a O2 Differential 40.6 H Blood Gas Critical Value Read Back QUINHOWARDKIERAN JEAN Blood Gas Modality NASAL CANNULA Blood Gas Notified Time 08/03/2016 2:49:35 AM Blood Gas Notified Whom KAREL Blood Gas Specimen Source Blood arterial Blood Gas Temperature 37.0 FiO2 30.0 Oxyhemoglobin Percent 97.7 Total Hemoglobin 14.6 Bedside Glucose 86 Alanine Aminotransferase (ALT/SGPT) 1387 H Albumin 3.4 Albumin/Globulin Ratio 0.97 Alkaline Phosphatase 82 Anion Gap 32 H Aspartate Amino Transf (AST/SGOT) 3511 H Basophils # 0.0 Basophils % 0.2 Blood Urea Nitrogen 50 H Calcium Level 8.5 Carbon Dioxide Level 11 L Chloride Level 107 Creatinine 2.58 H Direct Bilirubin 1.50 #H Eosinophils # 0.0 Eosinophils % 0.0 Globulin 3.50 H Glucose Level 113 Hematocrit 47.2 Hemoglobin 14.0 Indirect Bilirubin 0.8 Lymphocytes # 1.3 Lymphocytes % 6.7 L Mean Corpuscular Hemoglobin 27.8 L Mean Corpuscular Hemoglobin Concent 29.7 L Mean Corpuscular Volume 93.7 Mean Platelet Volume 12.2 H Monocytes # 0.7 Monocytes % 3.5 Neutrophils # 16.7 H Neutrophils % 89.1 H Nucleated Red Blood Cells # 0.1 H Nucleated Red Blood Cells % 0.7 H Platelet Count 103 #L Potassium Level 6.1 *H Red Blood Count 5.04 Red Cell Distribution Width 20.4 H Sodium Level 144 Total Bilirubin 2.3 H Total Protein 6.9 White Blood Count 18.7 #H Lactic Acid Level 11.4 *H Test 08/03/16 15:10 Anion Gap 25 #H Blood Urea Nitrogen 62 H Calcium Level 8.1 L Carbon Dioxide Level 15 L Chloride Level 108 Creatinine 2.64 H Glucose Level 134 Potassium Level 5.3 H Sodium Level 143 Medications Medications Current Medications Albuterol (Ventolin Hfa) 2 puff Q4H INH Last administered on 08/02/16 13:00; Admin Dose 2 PUFF; Start 08/02/16 at 09:00 Aspirin (Aspirin) 81 mg DAILY PO Last administered on 08/02/16 09:00; Admin Dose 81 MG; Start 08/02/16 at 09:00 Carvedilol (Coreg) 3.125 mg BID PO ; Start 08/02/16 at 09:00 Fluoxetine HCl (Prozac) 80 mg BID PO Last administered on 08/03/16 00:58; Admin Dose 80 MG; Start 08/02/16 at 09:00 Insulin Glargine (Lantus) 12 unit QHS SC ; Start 08/02/16 at 21:00 Mirtazapine (Remeron) 30 mg BID PO Last administered on 08/02/16 23:14; Admin Dose 30 MG; Start 08/02/16 at 09:00 Flumazenil (Romazicon) 0.2 mg Q1M PRN IV BENZODIAZEPINE OVERDOSE; Start at 09:00 Naloxone HCl (Narcan) 0.4 mg Q3M PRN IV DECREASED REPIRATORY RATE; Start at 09:00 Ondansetron HCl (Zofran Inj) 4 mg Q6H PRN IV NAUSEA AND/OR VOMITING; Start at 09:00 Nitroglycerin (Nitroglycerin (Sl Tab) 0.4 Mg) 1 tab Q5M PRN SL CHEST PAIN; Start 08/02/16 at 09:00 Acetaminophen (Tylenol Tab) 650 mg Q6H PRN PO PAIN LEVEL 1-3 OR FEVER; Start at 09:00 Lorazepam (Ativan) 1 mg Q2H PRN IV ANXIETY; Start 08/02/16 at 09:00 Zolpidem Tartrate (Ambien) 5 mg QHS PRN PO INSOMNIA; Start 08/02/16 at 21:00 Docusate Sodium (Colace) 100 mg Q12H PRN PO CONSTIPATION; Start 08/02/16 at 09: 00 Magnesium Hydroxide (Milk Of Mag) 30 ml DAILY PRN PO CONSTIPATION; Start at 09:00 Bisacodyl (Dulcolax) 5 mg DAILY PRN PO CONSTIPATION; Start 08/02/16 at 09:00 Pantoprazole (Protonix Iv) 40 mg DAILY@06 IV Last administered on 08/03/16 06: 32; Admin Dose 40 MG; Start 08/03/16 at 06:00 Miscellaneous Information 1 ea NOTE XX ; Start 08/02/16 at 10:00 Glucose (Glutose) 15 gm Q15M PRN PO DECREASED GLUCOSE; Start 08/02/16 at 10:00 Glucose (Glutose) 22.5 gm Q15M PRN PO DECREASED GLUCOSE; Start 08/02/16 at 10: 00 Dextrose (D50w Syringe) 25 ml Q15M PRN IV DECREASED GLUCOSE; Start 08/02/16 at 10:00 Dextrose (D50w Syringe) 50 ml Q15M PRN IV DECREASED GLUCOSE Last administered on 08/02/16 14:11; Admin Dose 50 ML; Start 08/02/16 at 10:00 Glucagon (Glucagen) 1 mg Q15M PRN IM DECREASED GLUCOSE; Start 08/02/16 at 10:00 Glucose 15 gm 15 gm Q15M PRN BUCCAL DECREASED GLUCOSE; Start 08/02/16 at 10:00 Sodium Bicarbonate/ Dextrose (Na Bicarb/D5W) 1,100 ml @ 50 mls/hr Q22H IV Last administered on 08/03/16 05:29; Admin Dose 50 MLS/HR; Start 08/03/16 at 05 :30 Furosemide (Lasix) 20 mg ONCE ONCE IV ; Start 08/03/16 at 17:00; Stop 08/03/16 at 17:01; Status ANDREAS MAN MD Aug 03, 2016 16:38
[2016-08-03] MEDS ORDERED: FUROSEMIDE 20 MG INJ IV ONE (17:00)
[2016-08-03] MEDS ORDERED: ALBUTEROL/IPRATROPIUM (NEB) 3 ML AMP HHN PRN (17:00)
[2016-08-03] MEDS: CEFTRIAXONE 1 GM/50 ML (PMX) 50 ML IVPB SCH (17:05)
[2016-08-03] MEDS ORDERED: INSULIN ASPART [NOVOLOG] 3 ML PEN SC SCH (18:00)
[2016-08-03] MEDS: Insulin NOVOLOG SS MILD Algorithm (NPO/TPN/ENTERAL FEEDS) SC SCH (18:00)
[2016-08-03 18:19] LABS: AADO2 Arterial 97.3 mmHg (7.0-24.0); Allen Test ACCEPTAB; Arterial Base Excess -4.4 mmol/L (-3.0-3); Arterial COHb 0.8 % (0.0-3.0); Arterial Fraction of Oxyhgb 95.1 % (93.0-99.0); Arterial HCO3 17.7 mmol/L (22.0-26.0); Arterial MetHb 0.3 % (0.0-1.5); Arterial Total Hemglobin 13.9 g/dl (12.0-18.0); MODE NASAL CANNULA
--- NOTE | 2016-08-03 19:10 | CONS ---
DATE OF ADMISSION: 08/02/2016 DATE OF CONSULTATION: REFERRING PHYSICIAN: Dr. Richard Francisco. REASON FOR CONSULT: Hematemesis and high gastric residual, and positive stool guaiac. HISTORY OF PRESENT ILLNESS: A 51-year-old male with ischemic cardiomyopathy with ejection fraction of 25%, chronic kidney disease, diabetes mellitus, drug abuse, pulmonary hypertension, had shortness of breath and cardiac erythema. The patient required shock treatment on the , reversed back to normal sinus rhythm, and was brought to the emergency room. In the ER, he was evaluated. CT scan o f the head showed volume loss. Focal right parietal encephalomalacia. Patient also had abdominal d istention. NG tube was passed, and 2400 mL of coffee-ground colored material aspirated. His stool for occult blood was positive. The patient potassium was high, but he declined any dialysis. PAST MEDICAL HISTORY: As described. HOME MEDICATIONS: 1. Albuterol. 2. Aspirin. 3. Coreg. 4. Prozac. 5. Lasix. 6. Insulin. 7. Remeron. REVIEW OF SYSTEMS: Negative. PHYSICAL EXAMINATION: GENERAL: Well-built, nourished, not in distress. VITAL SIGNS: Stable. HEENT: Unremarkable. NECK: Supple. No thyromegaly, no lymphadenopathy. CARDIOVASCULAR: No murmur, gallop, or click. LUNGS: Clear. ABDOMEN: Benign. EXTREMITIES: No edema. CENTRAL NERVOUS SYSTEM; Patient is sleepy now. Has got an NG tube. IMPRESSION: 1. Gastroparesis with large output, 2500 mL coffee-ground color. Hematocrit is stable. 2. Positive stool guaiac. 3. Ischemic liver. 4. Diabetes mellitus. 5. Ascites. 6. Electrolyte imbalance. 7. Ischemic cardiomyopathy with ejection fraction for 25%. 8. Pulmonary hypertension. PLAN: At this point, is to continue NG tube to suction for PPI, and cardiac workup. We will monito r H and H closely. Dictated By: MARK ESTRADA/EDILIA Conf#: [id number] DID#: [id number] CC: RICHARD FRANCISCO MD;*EndCC*
[2016-08-03 19:24] LABS: CANNABINOIDS Positive (NEGATIVE)
[2016-08-03 19:25] LABS: OPIATES Positive (NEGATIVE)
[2016-08-03 19:49] LABS: BARBITURATES Negative (NEGATIVE); BENZODIAZEPINES Negative (NEGATIVE); COCAINE Negative (NEGATIVE)
[2016-08-03] MEDS ORDERED: SOD CHLORIDE 0.9% 250 ML IV PRN (23:30)
[2016-08-04] VITALS (24 sets, daily range): BP systolic 89–114; BP diastolic 49–87; PULSE 91–101; RESP 13–25
[2016-08-04] MEDS: SODIUM BICARBONATE (IV ADD) 100 MEQ in DEXTROSE 5% 1,000 ML IV SCH (00:10)
[2016-08-04] MEDS: INSULIN GLARGINE [LANtus] 3 ML PEN SC SCH ×2 (00:18→20:39)
[2016-08-04] MEDS: PANTOPRAZOLE 40 MG INJ IV SCH (05:37)
[2016-08-04 05:43] LABS: ADD SCAN DIFF NO
[2016-08-04 05:47] LABS: ABNORMAL IP MESSAGE 1; BASOPHILS % 0.1 % (0.0-2.0); HEMATOCRIT 36.2 % (42.0-52.0); LYMPHOCYTES # 0.8 10^3/ul (0.8-2.9); LYMPHOCYTES % 5.8 % (15.0-51.0); MEAN CORPUSCULAR HEMOGLOBIN 27.5 pg (29.0-33.0); MEAN CORPUSCULAR HGB CONC 33.1 g/dl (32.0-37.0); MEAN PLATELET VOLUME 11.2 fl (7.4-10.4); MONOCYTE # 0.5 10^3/ul (0.3-0.9); MONOCYTES % 3.2 % (0.0-11.0); NUCLEATED RED BLOOD CELLS # 0.2 10^3/ul (0.0-0.0); NUCLEATED RED BLOOD CELLS% 1.5 /100WBC (0.0-0.0); PLATELET COUNT 99 10^3/UL (140-415); RED BLOOD COUNT 4.36 10^6/ul (4.70-6.10); RED CELL DISTRIBUTION WIDTH 20.4 % (11.5-14.5); WHITE BLOOD COUNT 14.3 10^3/ul (4.8-10.8)
[2016-08-04 05:58] LABS: ALBUMIN 2.4 g/dl (3.3-4.9); POTASSIUM 3.8 mmol/L (3.5-5.1)
[2016-08-04 06:00] LABS: CREATININE 2.22 mg/dl (0.61-1.24)
[2016-08-04] MEDS: Insulin NOVOLOG SS MILD Algorithm (NPO/TPN/ENTERAL FEEDS) SC SCH ×4 (06:00→18:00)
[2016-08-04 06:01] LABS: ALBUMIN/GLOBULIN RATIO 0.68; BILIRUBIN,DIRECT 0.6 mg/dl (0.00-0.20); BILIRUBIN,INDIRECT 0.8 mg/dl (0-1.1); BILIRUBIN,TOTAL 1.4 mg/dl (0.2-1.3); TOTAL PROTEIN 5.9 g/dl (6.1-8.1)
[2016-08-04 06:02] LABS: CALCIUM 7.7 mg/dl (8.4-10.2)
[2016-08-04 06:04] LABS: NEUTROPHILS % 90.6 % (39.0-77.0)
[2016-08-04 08:07] LABS: MAGNESIUM 1.8 mg/dl (1.7-2.5); PHOSPHORUS 4.9 mg/dl (2.5-4.9)
[2016-08-04 08:27] LABS: AADO2 Arterial 81.1 mmHg (7.0-24.0); Allen Test ACCEPTAB; Arterial Base Excess -1.3 mmol/L (-3.0-3); Arterial COHb 0.8 % (0.0-3.0); Arterial Fraction of Oxyhgb 95.4 % (93.0-99.0); Arterial HCO3 21.6 mmol/L (22.0-26.0); Arterial MetHb 0.2 % (0.0-1.5); Arterial Total Hemglobin 13.2 g/dl (12.0-18.0); MODE NASAL CANNULA
[2016-08-04] MEDS: FLUOXETINE 20 MG CAP PO SCH ×2 (09:00→20:37)
[2016-08-04] MEDS: MIRTAZAPINE 15 MG TAB PO SCH ×2 (09:00→20:37)
--- NOTE | 2016-08-04 11:12 | CONS ---
Date/Time of Note Date/Time of Note DATE: 08/04/16 TIME: 11:10 Assessment/Plan Assessment/Plan Additional Assessment/Plan IMPRESSION: 1. Gastroparesis with large output, 2500 mL coffee-ground color. Hematocrit is stable.resolved 2. Positive stool guaiac. 3. Ischemic liver.liver function improving 4. Diabetes mellitus. 5. Ascites. 6. Electrolyte imbalance. 7. Ischemic cardiomyopathy with ejection fraction for 25%. 8. Pulmonary hypertension. Plan iv hydration PPI monitor H&H clamp ng tube Consultation Date/Type/Reason Admit Date/Time Aug 02, 2016 at 08:32 Initial Consult Date 24 HR Interval Summary Subjective hx not possible: pt critical Constitutional: no complaints Exam/Review of Systems Vital Signs Vitals Vital Signs Date Time Temp Pulse Resp B/P Pulse Ox O2 Delivery O2 Flow Rate FiO2 08/04/16 10:00 94 21 99 08/04/16 10:00 99/67 Nasal Cannula 08/04/16 08:00 98.2 08/04/16 07:20 2.0 Intake and Output 08/03/16 08/03/16 08/04/16 15:00 23:00 07:00 Intake Total 750 ml 400 ml Output Total 2275 ml 2550 ml 1350 ml Balance -2275 ml -1800 ml -950 ml Exam Constitutional: alert, oriented, well developed Psych: nl mood/affect, no complaints Head: atraumatic, normocephalic Eyes: EOMI, PERRL, nl conjunctiva, nl lids, nl sclera ENMT: nl external ears & nose, nl lips & teeth, nl nasal mucosa & septum Neck: non-tender, supple Respiratory: clear to auscultation, normal air movement Cardiovascular: nl pulses, regular rate and rhythm Gastrointestinal: nl liver, spleen, non-tender, soft Musculoskeletal: nl extremities to inspection, nl gait and stance Extremities: normal pulses Neurological: CERTIFIED WELDING INSPECTOR II-XII intact, nl mental status, nl speech, nl strength Skin: nl turgor, No rash or lesions Lymph: nl lymph nodes Results Result Diagram: 08/04/16 0528 08/04/16 0520 Results 24 hrs Laboratory Tests Test 08/03/16 15:10 08/03/16 17:00 08/03/16 17:20 08/03/16 21:45 Anion Gap 25 #H Blood Urea Nitrogen 62 H Calcium Level 8.1 L Carbon Dioxide Level 15 L Chloride Level 108 Creatinine 2.64 H Glucose Level 134 Potassium Level 5.3 H Sodium Level 143 Arterial Blood HCO3 17.7 L Arterial Blood Base Excess -4.4 L Arterial Blood Oxygen Saturation 96.2 Oleksandr Test ACCEPTAB Arterial Blood Gas Puncture Site Right Radial Arterial Blood Carboxyhemoglobin 0.8 Arterial Blood Date Drawn 08/03/2016 6:10:37 PM Arterial Blood Methemoglobin 0.3 Arterial Blood pCO2 (Temp correct) 25.5 L Arterial Blood pH (Temp corrected) 7.460 H Arterial Blood pO2 (Temp corrected) 86.6 Blood Gas A-a O2 Differential 97.3 H Blood Gas Modality NASAL CANNULA Blood Gas Notified Time 08/03/2016 6:19:25 PM Blood Gas Notified Whom M.Patt Blood Gas Specimen Source Blood arterial Blood Gas Temperature 37.0 FiO2 30.0 Oxyhemoglobin Percent 95.1 Total Hemoglobin 13.9 Urine Amphetamines Screen Positive Urine Barbiturates Negative Urine Benzodiazepines Screen Negative Urine Cannabinoids Positive Urine Cocaine Screen Negative Urine Opiates Screen Positive Lactic Acid Level 8.3 *H Bedside Glucose 122 Test 08/04/16 00:16 08/04/16 05:20 08/04/16 05:28 08/04/16 05:36 Bedside Glucose 133 125 Alanine Aminotransferase (ALT/SGPT) 992 H Albumin 2.4 #L Albumin/Globulin Ratio 0.68 Alkaline Phosphatase 64 Anion Gap 19 H Aspartate Amino Transf (AST/SGOT) 1308 H Blood Urea Nitrogen 70 H Calcium Level 7.7 L Carbon Dioxide Level 23 Chloride Level 106 Creatinine 2.22 H Direct Bilirubin 0.60 #H Globulin 3.50 H Glucose Level 135 Indirect Bilirubin 0.8 Magnesium Level 1.8 Phosphorus Level 4.9 Potassium Level 3.8 Sodium Level 144 Total Bilirubin 1.4 H Total Protein 5.9 #L Basophils # 0.0 Basophils % 0.1 Eosinophils # 0.0 Eosinophils % 0.0 Hematocrit 36.2 #L Hemoglobin 12.0 L Lymphocytes # 0.8 Lymphocytes % 5.8 L Mean Corpuscular Hemoglobin 27.5 L Mean Corpuscular Hemoglobin Concent 33.1 Mean Corpuscular Volume 83.0 Mean Platelet Volume 11.2 H Monocytes # 0.5 Monocytes % 3.2 Neutrophils # 13.0 H Neutrophils % 90.6 H Nucleated Red Blood Cells # 0.2 H Nucleated Red Blood Cells % 1.5 H Platelet Count 99 L Red Blood Count 4.36 L Red Cell Distribution Width 20.4 H White Blood Count 14.3 #H Test 08/04/16 07:10 Arterial Blood HCO3 21.6 L Arterial Blood Base Excess -1.3 Arterial Blood Oxygen Saturation 96.4 Oleksandr Test ACCEPTAB Arterial Blood Gas Puncture Site Right Radial Arterial Blood Carboxyhemoglobin 0.8 Arterial Blood Date Drawn 08/04/2016 8:17:33 AM Arterial Blood Methemoglobin 0.2 Arterial Blood pCO2 (Temp correct) 31.2 L Arterial Blood pH (Temp corrected) 7.459 H Arterial Blood pO2 (Temp corrected) 96.1 Blood Gas A-a O2 Differential 81.1 H Blood Gas Modality NASAL CANNULA Blood Gas Notified Time 08/04/2016 8:27:19 AM Blood Gas Notified Whom TM Blood Gas Specimen Source Blood arterial Blood Gas Temperature 37.0 FiO2 30.0 Oxyhemoglobin Percent 95.4 Total Hemoglobin 13.2 Medications Medications Current Medications Aspirin (Aspirin) 81 mg DAILY PO Last administered on 08/02/16 09:00; Admin Dose 81 MG; Start 08/02/16 at 09:00; Status Future Hold Carvedilol (Coreg) 3.125 mg BID PO ; Start 08/02/16 at 09:00 Fluoxetine HCl (Prozac) 80 mg BID PO Last administered on 08/03/16 00:58; Admin Dose 80 MG; Start 08/02/16 at 09:00 Insulin Glargine (Lantus) 12 unit QHS SC Last administered on 08/04/16 00:18; Admin Dose 12 UNIT; Start 08/02/16 at 21:00 Mirtazapine (Remeron) 30 mg BID PO Last administered on 08/02/16 23:14; Admin Dose 30 MG; Start 08/02/16 at 09:00 Flumazenil (Romazicon) 0.2 mg Q1M PRN IV BENZODIAZEPINE OVERDOSE; Start at 09:00 Naloxone HCl (Narcan) 0.4 mg Q3M PRN IV DECREASED REPIRATORY RATE; Start at 09:00 Ondansetron HCl (Zofran Inj) 4 mg Q6H PRN IV NAUSEA AND/OR VOMITING Last administered on 08/04/16 02:34; Admin Dose 4 MG; Start 08/02/16 at 09:00 Nitroglycerin (Nitroglycerin (Sl Tab) 0.4 Mg) 1 tab Q5M PRN SL CHEST PAIN; Start 08/02/16 at 09:00 Acetaminophen (Tylenol Tab) 650 mg Q6H PRN PO PAIN LEVEL 1-3 OR FEVER; Start at 09:00 Lorazepam (Ativan) 1 mg Q2H PRN IV ANXIETY; Start 08/02/16 at 09:00 Zolpidem Tartrate (Ambien) 5 mg QHS PRN PO INSOMNIA; Start 08/02/16 at 21:00 Docusate Sodium (Colace) 100 mg Q12H PRN PO CONSTIPATION; Start 08/02/16 at 09: 00 Magnesium Hydroxide (Milk Of Mag) 30 ml DAILY PRN PO CONSTIPATION; Start at 09:00 Bisacodyl (Dulcolax) 5 mg DAILY PRN PO CONSTIPATION; Start 08/02/16 at 09:00 Miscellaneous Information 1 ea NOTE XX ; Start 08/02/16 at 10:00 Glucose (Glutose) 15 gm Q15M PRN PO DECREASED GLUCOSE; Start 08/02/16 at 10:00 Glucose (Glutose) 22.5 gm Q15M PRN PO DECREASED GLUCOSE; Start 08/02/16 at 10: 00 Dextrose (D50w Syringe) 25 ml Q15M PRN IV DECREASED GLUCOSE; Start 08/02/16 at 10:00 Dextrose (D50w Syringe) 50 ml Q15M PRN IV DECREASED GLUCOSE Last administered on 08/02/16 14:11; Admin Dose 50 ML; Start 08/02/16 at 10:00 Glucagon (Glucagen) 1 mg Q15M PRN IM DECREASED GLUCOSE; Start 08/02/16 at 10:00 Glucose 15 gm 15 gm Q15M PRN BUCCAL DECREASED GLUCOSE; Start 08/02/16 at 10:00 Sodium Bicarbonate 100 meq/Dextrose 1,100 ml @ 50 mls/hr Q22H IV Last administered on 08/04/16 00:10; Admin Dose 50 MLS/HR; Start 08/03/16 at 05:30 Ceftriaxone Sodium (Rocephin) 50 ml @ 100 mls/hr Q24H IVPB Last administered on 08/03/16 17:05; Admin Dose 100 MLS/HR; Start 08/03/16 at 17:00 Pantoprazole (Protonix Iv) 40 mg DAILY@06 IV Last administered on 08/04/16 05: 37; Admin Dose 40 MG; Start 08/04/16 at 06:00 Insulin Aspart (Adult SC Insulin - Mild Algorithm)... Q6 SC ; Start 08/03/16 at 18:00 Sodium Chloride (NS) 250 ml @ 250 mls/hr Q1H PRN IV X1; Start 08/03/16 at 23:30 MARK FARFAN MD Aug 04, 2016 11:12
--- NOTE | 2016-08-04 12:53 | CONS ---
Date/Time of Note Date/Time of Note DATE: 08/04/16 TIME: 12:50 Assessment/Plan Assessment/Plan Additional Assessment/Plan 1. Cardiomyopathy. The patient has severe cardiomyopathy, now with CHF, acute on chronic. Will need to support the patient's blood pressure while diuresis goes on - now pt in ICU, BP stable - PT WITH INCREASED URINE OUTPUT - will Monitor - add afterload reduction when BP allows. 2. Acute renal failure. Creatinine is elevated. The patient has a very poor urine output now. Dr. Domingo follows. BETTER 3. History of polysubstance abuse. We will discuss once the patient is more hemodynamically stable. 4. History of ventricular tachycardia. The patient now on amiodarone. Continue to monitor. In sinus now. 5. Elevated troponins in the setting of acute cardiomyopathy, probably cardiomyopathy related. Will follow. A 2D echo is expected with low EF. 6. Electrolyte abnormality. Continue to keep electrolytes in chart. REPLACE K + As needed. Consultation Date/Type/Reason Admit Date/Time Aug 02, 2016 at 08:32 24 HR Interval Summary Free Text/Dictation NO acute change - BP well controlled. Good urine output. ROS: No fever, no chills, no nausea, no vomiting, no diarrhea/constipation No recent weight changes No chest pain, no PND, no orthopnea No dizziness, blurred vision No thirst, no heat or cold intolerance (looks much better now) Exam/Review of Systems Vital Signs Vitals Vital Signs Date Time Temp Pulse Resp B/P Pulse Ox O2 Delivery O2 Flow Rate FiO2 08/04/16 12:00 96 08/04/16 10:00 21 99 08/04/16 10:00 99/67 Nasal Cannula 08/04/16 08:00 98.2 08/04/16 07:20 2.0 Intake and Output 08/03/16 08/03/16 08/04/16 15:00 23:00 07:00 Intake Total 750 ml 400 ml Output Total 2275 ml 2550 ml 1350 ml Balance -2275 ml -1800 ml -950 ml Exam General: WN/WD/NAD, AOx 1-2 HEENT: Unicetric/atraumatic/EOMI (follow commands) NECK: JVD elevated, no thyromegaly Lymph: no lymphadenopathy HEART: regular with no S3, II/ systolic murmur at apex, PMI left LUNGS: Coarse sounds ABD: soft, NT, ND, +BS : Intact Neuro: non focal SKIN: chronic changes EXT: trace edema Results Result Diagram: 08/04/16 0528 08/04/16 0520 Results 24 hrs Laboratory Tests Test 08/03/16 15:10 08/03/16 17:00 08/03/16 17:20 08/03/16 21:45 Anion Gap 25 #H Blood Urea Nitrogen 62 H Calcium Level 8.1 L Carbon Dioxide Level 15 L Chloride Level 108 Creatinine 2.64 H Glucose Level 134 Potassium Level 5.3 H Sodium Level 143 Arterial Blood HCO3 17.7 L Arterial Blood Base Excess -4.4 L Arterial Blood Oxygen Saturation 96.2 Oleksandr Test ACCEPTAB Arterial Blood Gas Puncture Site Right Radial Arterial Blood Carboxyhemoglobin 0.8 Arterial Blood Date Drawn 08/03/2016 6:10:37 PM Arterial Blood Methemoglobin 0.3 Arterial Blood pCO2 (Temp correct) 25.5 L Arterial Blood pH (Temp corrected) 7.460 H Arterial Blood pO2 (Temp corrected) 86.6 Blood Gas A-a O2 Differential 97.3 H Blood Gas Modality NASAL CANNULA Blood Gas Notified Time 08/03/2016 6:19:25 PM Blood Gas Notified Whom M.D. Blood Gas Specimen Source Blood arterial Blood Gas Temperature 37.0 FiO2 30.0 Oxyhemoglobin Percent 95.1 Total Hemoglobin 13.9 Urine Amphetamines Screen Positive Urine Barbiturates Negative Urine Benzodiazepines Screen Negative Urine Cannabinoids Positive Urine Cocaine Screen Negative Urine Opiates Screen Positive Lactic Acid Level 8.3 *H Bedside Glucose 122 Test 08/04/16 00:16 08/04/16 05:20 08/04/16 05:28 08/04/16 05:36 Bedside Glucose 133 125 Alanine Aminotransferase (ALT/SGPT) 992 H Albumin 2.4 #L Albumin/Globulin Ratio 0.68 Alkaline Phosphatase 64 Anion Gap 19 H Aspartate Amino Transf (AST/SGOT) 1308 H Blood Urea Nitrogen 70 H Calcium Level 7.7 L Carbon Dioxide Level 23 Chloride Level 106 Creatinine 2.22 H Direct Bilirubin 0.60 #H Globulin 3.50 H Glucose Level 135 Indirect Bilirubin 0.8 Magnesium Level 1.8 Phosphorus Level 4.9 Potassium Level 3.8 Sodium Level 144 Total Bilirubin 1.4 H Total Protein 5.9 #L Basophils # 0.0 Basophils % 0.1 Eosinophils # 0.0 Eosinophils % 0.0 Hematocrit 36.2 #L Hemoglobin 12.0 L Lymphocytes # 0.8 Lymphocytes % 5.8 L Mean Corpuscular Hemoglobin 27.5 L Mean Corpuscular Hemoglobin Concent 33.1 Mean Corpuscular Volume 83.0 Mean Platelet Volume 11.2 H Monocytes # 0.5 Monocytes % 3.2 Neutrophils # 13.0 H Neutrophils % 90.6 H Nucleated Red Blood Cells # 0.2 H Nucleated Red Blood Cells % 1.5 H Platelet Count 99 L Red Blood Count 4.36 L Red Cell Distribution Width 20.4 H White Blood Count 14.3 #H Test 08/04/16 07:10 Arterial Blood HCO3 21.6 L Arterial Blood Base Excess -1.3 Arterial Blood Oxygen Saturation 96.4 Oleksandr Test ACCEPTAB Arterial Blood Gas Puncture Site Right Radial Arterial Blood Carboxyhemoglobin 0.8 Arterial Blood Date Drawn 08/04/2016 8:17:33 AM Arterial Blood Methemoglobin 0.2 Arterial Blood pCO2 (Temp correct) 31.2 L Arterial Blood pH (Temp corrected) 7.459 H Arterial Blood pO2 (Temp corrected) 96.1 Blood Gas A-a O2 Differential 81.1 H Blood Gas Modality NASAL CANNULA Blood Gas Notified Time 08/04/2016 8:27:19 AM Blood Gas Notified Whom TM Blood Gas Specimen Source Blood arterial Blood Gas Temperature 37.0 FiO2 30.0 Oxyhemoglobin Percent 95.4 Total Hemoglobin 13.2 Medications Medications Current Medications Aspirin (Aspirin) 81 mg DAILY PO Last administered on 08/02/16 09:00; Admin Dose 81 MG; Start 08/02/16 at 09:00; Status Future Hold Carvedilol (Coreg) 3.125 mg BID PO ; Start 08/02/16 at 09:00 Fluoxetine HCl (Prozac) 80 mg BID PO Last administered on 08/03/16 00:58; Admin Dose 80 MG; Start 08/02/16 at 09:00 Insulin Glargine (Lantus) 12 unit QHS SC Last administered on 08/04/16 00:18; Admin Dose 12 UNIT; Start 08/02/16 at 21:00 Mirtazapine (Remeron) 30 mg BID PO Last administered on 08/02/16 23:14; Admin Dose 30 MG; Start 08/02/16 at 09:00 Flumazenil (Romazicon) 0.2 mg Q1M PRN IV BENZODIAZEPINE OVERDOSE; Start at 09:00 Naloxone HCl (Narcan) 0.4 mg Q3M PRN IV DECREASED REPIRATORY RATE; Start at 09:00 Ondansetron HCl (Zofran Inj) 4 mg Q6H PRN IV NAUSEA AND/OR VOMITING Last administered on 08/04/16 02:34; Admin Dose 4 MG; Start 08/02/16 at 09:00 Nitroglycerin (Nitroglycerin (Sl Tab) 0.4 Mg) 1 tab Q5M PRN SL CHEST PAIN; Start 08/02/16 at 09:00 Acetaminophen (Tylenol Tab) 650 mg Q6H PRN PO PAIN LEVEL 1-3 OR FEVER; Start at 09:00 Lorazepam (Ativan) 1 mg Q2H PRN IV ANXIETY; Start 08/02/16 at 09:00 Zolpidem Tartrate (Ambien) 5 mg QHS PRN PO INSOMNIA; Start 08/02/16 at 21:00 Docusate Sodium (Colace) 100 mg Q12H PRN PO CONSTIPATION; Start 08/02/16 at 09: 00 Magnesium Hydroxide (Milk Of Mag) 30 ml DAILY PRN PO CONSTIPATION; Start at 09:00 Bisacodyl (Dulcolax) 5 mg DAILY PRN PO CONSTIPATION; Start 08/02/16 at 09:00 Miscellaneous Information 1 ea NOTE XX ; Start 08/02/16 at 10:00 Glucose (Glutose) 15 gm Q15M PRN PO DECREASED GLUCOSE; Start 08/02/16 at 10:00 Glucose (Glutose) 22.5 gm Q15M PRN PO DECREASED GLUCOSE; Start 08/02/16 at 10: 00 Dextrose (D50w Syringe) 25 ml Q15M PRN IV DECREASED GLUCOSE; Start 08/02/16 at 10:00 Dextrose (D50w Syringe) 50 ml Q15M PRN IV DECREASED GLUCOSE Last administered on 08/02/16 14:11; Admin Dose 50 ML; Start 08/02/16 at 10:00 Glucagon (Glucagen) 1 mg Q15M PRN IM DECREASED GLUCOSE; Start 08/02/16 at 10:00 Glucose 15 gm 15 gm Q15M PRN BUCCAL DECREASED GLUCOSE; Start 08/02/16 at 10:00 Sodium Bicarbonate 100 meq/Dextrose 1,100 ml @ 50 mls/hr Q22H IV Last administered on 08/04/16 00:10; Admin Dose 50 MLS/HR; Start 08/03/16 at 05:30 Ceftriaxone Sodium (Rocephin) 50 ml @ 100 mls/hr Q24H IVPB Last administered on 08/03/16 17:05; Admin Dose 100 MLS/HR; Start 08/03/16 at 17:00 Pantoprazole (Protonix Iv) 40 mg DAILY@06 IV Last administered on 08/04/16 05: 37; Admin Dose 40 MG; Start 08/04/16 at 06:00 Insulin Aspart (Adult SC Insulin - Mild Algorithm)... Q6 SC ; Start 08/03/16 at 18:00 Sodium Chloride (NS) 250 ml @ 250 mls/hr Q1H PRN IV X1; Start 08/03/16 at 23:30 ROEL BLACK MD Aug 04, 2016 12:53
[2016-08-04] MEDS: CEFTRIAXONE 1 GM/50 ML (PMX) 50 ML IVPB SCH (18:08)
--- NOTE | 2016-08-04 19:58 | RADRPT ---
PROCEDURE: US Abdomen (limited). CLINICAL INDICATION: Abdominal pain and distension. TECHNIQUE: Multiple real-time longitudinal and transverse images of the four quadrants of the abdo men were acquired utilizing a curved array transducer. Images were reviewed on a high-resolution PAC S workstation. COMPARISON: None FINDINGS: There is a small amount of ascites throughout the upper abdomen and a trace amount in the lower abdo men bilaterally. Paracentesis was not performed. IMPRESSION: 1. Small amount of ascites. Paracentesis was not performed. RPTAT: QQ .Vu Ashley MD, MD Date Time Electronically viewed and signed by .Vu Ashley MD, MD on 08/04/2016 16:05 .R/
--- NOTE | 2016-08-04 22:32 | PN ---
Date/Time of Note Date/Time of Note DATE: 08/04/16 TIME: 22:30 Assessment/Plan VTE Prophylaxis VTE Prophylaxis Intervention: other Lines/Catheters IV Catheter Type (from Nrsg): Saline Lock Urinary Cath still in place: Yes Reason Cath still needed: other (indicate) Assessment/Plan Chief Complaint/Hosp Course IMPRESSION: 1. Cardiac arrhythmia, status post ventricular tachycardia. Started on amiodarone drip in the ER 2. Hypertension. 3. Hyperkalemia.better 4. Chronic kidney disease. 5. Electrolyte imbalance. 6. Ascites. 7. Drug abuse. 8. Systolic heart failure. 9 gi bleed 10 drug abuse 11lactic acidosis plan abg lasix per gi [id number] Problems: Subjective 24 Hr Interval Summary Cardiovascular: no complaints Gastrointestinal: No diarrhea, No vomiting Exam/Review of Systems Vital Signs Vitals Vital Signs Date Time Temp Pulse Resp B/P Pulse Ox O2 Delivery O2 Flow Rate FiO2 08/04/16 22:00 96 15 102/77 100 Nasal Cannula 2.0 08/04/16 20:00 97.9 Intake and Output 08/03/16 08/03/16 08/04/16 15:00 23:00 07:00 Intake Total 750 ml 400 ml Output Total 2275 ml 2550 ml 1450 ml Balance -2275 ml -1800 ml -1050 ml Exam Neck: supple Respiratory: diminished breath sounds Cardiovascular: regular rate and rhythm Gastrointestinal: bowel sounds (+), soft Extremities: edema (++) Neurological: EDUCATIONAL GUIDANCE COUNSELOR II-XII intact, nl mental status Results Result Diagram: 08/04/1628 08/04/16 0520 Results 24 hrs Laboratory Tests Test 08/04/16 00:16 08/04/16 05:20 08/04/16 05:28 08/04/16 05:36 Bedside Glucose 133 125 Alanine Aminotransferase (ALT/SGPT) 992 H Albumin 2.4 #L Albumin/Globulin Ratio 0.68 Alkaline Phosphatase 64 Anion Gap 19 H Aspartate Amino Transf (AST/SGOT) 1308 H Blood Urea Nitrogen 70 H Calcium Level 7.7 L Carbon Dioxide Level 23 Chloride Level 106 Creatinine 2.22 H Direct Bilirubin 0.60 #H Globulin 3.50 H Glucose Level 135 Indirect Bilirubin 0.8 Magnesium Level 1.8 Phosphorus Level 4.9 Potassium Level 3.8 Sodium Level 144 Total Bilirubin 1.4 H Total Protein 5.9 #L Basophils # 0.0 Basophils % 0.1 Eosinophils # 0.0 Eosinophils % 0.0 Hematocrit 36.2 #L Hemoglobin 12.0 L Lymphocytes # 0.8 Lymphocytes % 5.8 L Mean Corpuscular Hemoglobin 27.5 L Mean Corpuscular Hemoglobin Concent 33.1 Mean Corpuscular Volume 83.0 Mean Platelet Volume 11.2 H Monocytes # 0.5 Monocytes % 3.2 Neutrophils # 13.0 H Neutrophils % 90.6 H Nucleated Red Blood Cells # 0.2 H Nucleated Red Blood Cells % 1.5 H Platelet Count 99 L Red Blood Count 4.36 L Red Cell Distribution Width 20.4 H White Blood Count 14.3 #H Test 08/04/16 07:10 08/04/16 18:06 Arterial Blood HCO3 21.6 L Arterial Blood Base Excess -1.3 Arterial Blood Oxygen Saturation 96.4 Oleksandr Test ACCEPTAB Arterial Blood Gas Puncture Site Right Radial Arterial Blood Carboxyhemoglobin 0.8 Arterial Blood Date Drawn 08/04/2016 8:17:33 AM Arterial Blood Methemoglobin 0.2 Arterial Blood pCO2 (Temp correct) 31.2 L Arterial Blood pH (Temp corrected) 7.459 H Arterial Blood pO2 (Temp corrected) 96.1 Blood Gas A-a O2 Differential 81.1 H Blood Gas Modality NASAL CANNULA Blood Gas Notified Time 08/04/2016 8:27:19 AM Blood Gas Notified Whom TM Blood Gas Specimen Source Blood arterial Blood Gas Temperature 37.0 FiO2 30.0 Oxyhemoglobin Percent 95.4 Total Hemoglobin 13.2 Bedside Glucose 137 Medications Medications Current Medications Aspirin (Aspirin) 81 mg DAILY PO Last administered on 08/02/16 09:00; Admin Dose 81 MG; Start 08/02/16 at 09:00; Status Future Hold Carvedilol (Coreg) 3.125 mg BID PO ; Start 08/02/16 at 09:00 Fluoxetine HCl (Prozac) 80 mg BID PO Last administered on 08/03/16 00:58; Admin Dose 80 MG; Start 08/02/16 at 09:00 Insulin Glargine (Lantus) 12 unit QHS SC Last administered on 08/04/16 20:39; Admin Dose 12 UNIT; Start 08/02/16 at 21:00 Mirtazapine (Remeron) 30 mg BID PO Last administered on 08/02/16 23:14; Admin Dose 30 MG; Start 08/02/16 at 09:00 Flumazenil (Romazicon) 0.2 mg Q1M PRN IV BENZODIAZEPINE OVERDOSE; Start at 09:00 Naloxone HCl (Narcan) 0.4 mg Q3M PRN IV DECREASED REPIRATORY RATE; Start at 09:00 Ondansetron HCl (Zofran Inj) 4 mg Q6H PRN IV NAUSEA AND/OR VOMITING Last administered on 08/04/16 02:34; Admin Dose 4 MG; Start 08/02/16 at 09:00 Nitroglycerin (Nitroglycerin (Sl Tab) 0.4 Mg) 1 tab Q5M PRN SL CHEST PAIN; Start 08/02/16 at 09:00 Acetaminophen (Tylenol Tab) 650 mg Q6H PRN PO PAIN LEVEL 1-3 OR FEVER; Start at 09:00 Lorazepam (Ativan) 1 mg Q2H PRN IV ANXIETY; Start 08/02/16 at 09:00 Zolpidem Tartrate (Ambien) 5 mg QHS PRN PO INSOMNIA; Start 08/02/16 at 21:00 Docusate Sodium (Colace) 100 mg Q12H PRN PO CONSTIPATION; Start 08/02/16 at 09: 00 Magnesium Hydroxide (Milk Of Mag) 30 ml DAILY PRN PO CONSTIPATION; Start at 09:00 Bisacodyl (Dulcolax) 5 mg DAILY PRN PO CONSTIPATION; Start 08/02/16 at 09:00 Miscellaneous Information 1 ea NOTE XX ; Start 08/02/16 at 10:00 Glucose (Glutose) 15 gm Q15M PRN PO DECREASED GLUCOSE; Start 08/02/16 at 10:00 Glucose (Glutose) 22.5 gm Q15M PRN PO DECREASED GLUCOSE; Start 08/02/16 at 10: 00 Dextrose (D50w Syringe) 25 ml Q15M PRN IV DECREASED GLUCOSE; Start 08/02/16 at 10:00 Dextrose (D50w Syringe) 50 ml Q15M PRN IV DECREASED GLUCOSE Last administered on 08/02/16 14:11; Admin Dose 50 ML; Start 08/02/16 at 10:00 Glucagon (Glucagen) 1 mg Q15M PRN IM DECREASED GLUCOSE; Start 08/02/16 at 10:00 Glucose 15 gm 15 gm Q15M PRN BUCCAL DECREASED GLUCOSE; Start 08/02/16 at 10:00 Sodium Bicarbonate 100 meq/Dextrose 1,100 ml @ 50 mls/hr Q22H IV Last administered on 08/04/16 00:10; Admin Dose 50 MLS/HR; Start 08/03/16 at 05:30 Ceftriaxone Sodium (Rocephin) 50 ml @ 100 mls/hr Q24H IVPB Last administered on 08/04/16 18:08; Admin Dose 100 MLS/HR; Start 08/03/16 at 17:00 Pantoprazole (Protonix Iv) 40 mg DAILY@06 IV Last administered on 08/04/16 05: 37; Admin Dose 40 MG; Start 08/04/16 at 06:00 Insulin Aspart (Adult SC Insulin - Mild Algorithm)... Q6 SC ; Start 08/03/16 at 18:00 Sodium Chloride (NS) 250 ml @ 250 mls/hr Q1H PRN IV X1; Start 08/03/16 at 23:30 ANDREAS FRANCISCO MD Aug 04, 2016 22:32
[2016-08-05] VITALS (23 sets, daily range): BP systolic 88–108; BP diastolic 52–87; PULSE 79–94; RESP 11–18
[2016-08-05] MEDS: Insulin NOVOLOG SS MILD Algorithm (NPO/TPN/ENTERAL FEEDS) SC SCH ×4 (00:38→17:46)
[2016-08-05] MEDS: SODIUM BICARBONATE (IV ADD) 100 MEQ in DEXTROSE 5% 1,000 ML IV SCH (00:43)
[2016-08-05] MEDS: PANTOPRAZOLE 40 MG INJ IV SCH (05:49)
[2016-08-05 05:51] LABS: ADD SCAN DIFF NO
[2016-08-05 06:13] LABS: ALBUMIN/GLOBULIN RATIO 0.7
[2016-08-05 06:17] LABS: ABNORMAL IP MESSAGE 1; BASOPHILS % 0.1 % (0.0-2.0); HEMATOCRIT 37.9 % (42.0-52.0); HEMOGLOBIN 12.4 g/dl (14.0-18.0); LYMPHOCYTES # 1.2 10^3/ul (0.8-2.9); LYMPHOCYTES % 9.8 % (15.0-51.0); MEAN CORPUSCULAR HEMOGLOBIN 27.4 pg (29.0-33.0); MEAN CORPUSCULAR HGB CONC 32.7 g/dl (32.0-37.0); MEAN CORPUSCULAR VOLUME 83.8 fl (82.0-101.0); MEAN PLATELET VOLUME 12.6 fl (7.4-10.4); MONOCYTE # 0.5 10^3/ul (0.3-0.9); MONOCYTES % 4.5 % (0.0-11.0); NEUTROPHIL # 10.1 10^3/ul (1.6-7.5); NEUTROPHILS % 85.3 % (39.0-77.0); NUCLEATED RED BLOOD CELLS # 0.1 10^3/ul (0.0-0.0); NUCLEATED RED BLOOD CELLS% 0.5 /100WBC (0.0-0.0); PLATELET COUNT 107 10^3/UL (140-415); RED BLOOD COUNT 4.52 10^6/ul (4.70-6.10); RED CELL DISTRIBUTION WIDTH 21.2 % (11.5-14.5); WHITE BLOOD COUNT 11.9 10^3/ul (4.8-10.8)
[2016-08-05 06:34] LABS: ALBUMIN 2.6 g/dl (3.3-4.9); BILIRUBIN,DIRECT 0.5 mg/dl (0.00-0.20); BILIRUBIN,INDIRECT 0.7 mg/dl (0-1.1); BILIRUBIN,TOTAL 1.2 mg/dl (0.2-1.3); CALCIUM 8.1 mg/dl (8.4-10.2); CREATININE 1.69 mg/dl (0.61-1.24); POTASSIUM 3.5 mmol/L (3.5-5.1); TOTAL PROTEIN 6.3 g/dl (6.1-8.1)
--- NOTE | 2016-08-05 10:22 | CONS ---
Date/Time of Note Date/Time of Note DATE: 08/05/16 TIME: 10:12 Assessment/Plan Assessment/Plan Chief Complaint/Hosp Course Imp: 1.Cardiomyopathy-EF 25% by echo 02/20 2. positive troponin-minimal in setting of renal failure 3.CHF-systolic acute on chronic 4.HTN 5.Substance abuse 6.Ventricular tachycardia 7.REnal failure 8.Coagulopathy Recc: -Tele -trend cardiac enzymes -Continue low dose BB as tolerated -start low dose hydralazine as tolerated -Follow volume status and renal function closely -Will consider lexiscan to assess for significant ischemia Problems: Consultation Date/Type/Reason Admit Date/Time Aug 02, 2016 at 08:32 Initial Consult Date 08/02/16 Type of Consultation: Cardiology Reason for Consultation VT/cardiomyopathy/positive troponin Exam/Review of Systems Vital Signs Vitals Vital Signs Date Time Temp Pulse Resp B/P Pulse Ox O2 Delivery O2 Flow Rate FiO2 08/05/16 06:00 88 14 88/76 99 Nasal Cannula 2.0 08/05/16 04:00 98.5 Intake and Output 08/04/16 08/04/16 08/05/16 15:00 23:00 07:00 Intake Total 100 ml 650 ml 550 ml Output Total 925 ml 1230 ml 1160 ml Balance -825 ml -580 ml -610 ml Exam Review of Systems: CONSTITUTIONAL: No fevers, chills. PULMONARY: No sob CARDIOVASCULAR: No chest pain/palpitations GASTROINTESTINAL: No nausea/vomiting. GENITOURINARY: No hematuria/dysuria. MUSCULOSKELETAL: No myagias/arthalgias. PSYCHIATRIC: The patient denies depression. NEUROLOGIC: mild generalized weakness Constitutional: alert Psych: no complaints Head: normocephalic Eyes: nl conjunctiva ENMT: mucosa pink and moist Neck: jvd (9 cm water) Respiratory: diminished breath sounds (at bases/B) Cardiovascular: regular rate and rhythm Gastrointestinal: non-tender, soft Musculoskeletal: muscle tone (normal) Extremities: edema (trace with chronic chnages bilatyeral) Neurological: other (No focal deficits) Results Result Diagram: 08/05/16 0536 08/05/16 0536 Results 24 hrs Laboratory Tests Test 08/04/16 18:06 08/04/16 23:48 08/05/16 05:36 08/05/16 05:45 Bedside Glucose 137 161 168 Alanine Aminotransferase (ALT/SGPT) 767 H Albumin 2.6 L Albumin/Globulin Ratio 0.70 Alkaline Phosphatase 74 Anion Gap 17 H Aspartate Amino Transf (AST/SGOT) 523 #H Basophils # 0.0 Basophils % 0.1 Blood Urea Nitrogen 64 H Calcium Level 8.1 L Carbon Dioxide Level 28 Chloride Level 106 Creatinine 1.69 H Direct Bilirubin 0.50 H Eosinophils # 0.0 Eosinophils % 0.0 Globulin 3.70 H Glucose Level 149 Hematocrit 37.9 L Hemoglobin 12.4 L Hemoglobin A1c 6.3 H Indirect Bilirubin 0.7 Lactic Acid Level 1.6 Lymphocytes # 1.2 Lymphocytes % 9.8 L Mean Corpuscular Hemoglobin 27.4 L Mean Corpuscular Hemoglobin Concent 32.7 Mean Corpuscular Volume 83.8 Mean Platelet Volume 12.6 H Monocytes # 0.5 Monocytes % 4.5 Neutrophils # 10.1 H Neutrophils % 85.3 H Nucleated Red Blood Cells # 0.1 H Nucleated Red Blood Cells % 0.5 H Platelet Count 107 L Potassium Level 3.5 Red Blood Count 4.52 L Red Cell Distribution Width 21.2 H Sodium Level 147 H Total Bilirubin 1.2 Total Protein 6.3 White Blood Count 11.9 H Medications Medications Current Medications Aspirin (Aspirin) 81 mg DAILY PO Last administered on 08/02/16 09:00; Admin Dose 81 MG; Start 08/02/16 at 09:00; Status Future Hold Carvedilol (Coreg) 3.125 mg BID PO ; Start 08/02/16 at 09:00 Fluoxetine HCl (Prozac) 80 mg BID PO Last administered on 08/03/16 00:58; Admin Dose 80 MG; Start 08/02/16 at 09:00 Insulin Glargine (Lantus) 12 unit QHS SC Last administered on 08/04/16 20:39; Admin Dose 12 UNIT; Start 08/02/16 at 21:00 Mirtazapine (Remeron) 30 mg BID PO Last administered on 08/02/16 23:14; Admin Dose 30 MG; Start 08/02/16 at 09:00 Flumazenil (Romazicon) 0.2 mg Q1M PRN IV BENZODIAZEPINE OVERDOSE; Start at 09:00 Naloxone HCl (Narcan) 0.4 mg Q3M PRN IV DECREASED REPIRATORY RATE; Start at 09:00 Ondansetron HCl (Zofran Inj) 4 mg Q6H PRN IV NAUSEA AND/OR VOMITING Last administered on 08/04/16 02:34; Admin Dose 4 MG; Start 08/02/16 at 09:00 Nitroglycerin (Nitroglycerin (Sl Tab) 0.4 Mg) 1 tab Q5M PRN SL CHEST PAIN; Start 08/02/16 at 09:00 Acetaminophen (Tylenol Tab) 650 mg Q6H PRN PO PAIN LEVEL 1-3 OR FEVER; Start at 09:00 Lorazepam (Ativan) 1 mg Q2H PRN IV ANXIETY; Start 08/02/16 at 09:00 Zolpidem Tartrate (Ambien) 5 mg QHS PRN PO INSOMNIA; Start 08/02/16 at 21:00 Docusate Sodium (Colace) 100 mg Q12H PRN PO CONSTIPATION; Start 08/02/16 at 09: 00 Magnesium Hydroxide (Milk Of Mag) 30 ml DAILY PRN PO CONSTIPATION; Start at 09:00 Bisacodyl (Dulcolax) 5 mg DAILY PRN PO CONSTIPATION; Start 08/02/16 at 09:00 Miscellaneous Information 1 ea NOTE XX ; Start 08/02/16 at 10:00 Glucose (Glutose) 15 gm Q15M PRN PO DECREASED GLUCOSE; Start 08/02/16 at 10:00 Glucose (Glutose) 22.5 gm Q15M PRN PO DECREASED GLUCOSE; Start 08/02/16 at 10: 00 Dextrose (D50w Syringe) 25 ml Q15M PRN IV DECREASED GLUCOSE; Start 08/02/16 at 10:00 Dextrose (D50w Syringe) 50 ml Q15M PRN IV DECREASED GLUCOSE Last administered on 08/02/16 14:11; Admin Dose 50 ML; Start 08/02/16 at 10:00 Glucagon (Glucagen) 1 mg Q15M PRN IM DECREASED GLUCOSE; Start 08/02/16 at 10:00 Glucose 15 gm 15 gm Q15M PRN BUCCAL DECREASED GLUCOSE; Start 08/02/16 at 10:00 Sodium Bicarbonate 100 meq/Dextrose 1,100 ml @ 50 mls/hr Q22H IV Last administered on 08/05/16 00:43; Admin Dose 50 MLS/HR; Start 08/03/16 at 05:30 Ceftriaxone Sodium (Rocephin) 50 ml @ 100 mls/hr Q24H IVPB Last administered on 08/04/16 18:08; Admin Dose 100 MLS/HR; Start 08/03/16 at 17:00 Pantoprazole (Protonix Iv) 40 mg DAILY@06 IV Last administered on 08/05/16 05: 49; Admin Dose 40 MG; Start 08/04/16 at 06:00 Insulin Aspart (Adult SC Insulin - Mild Algorithm)... Q6 SC Last administered on 08/05/16 05:52; Admin Dose 1 UNIT; Start 08/03/16 at 18:00 Sodium Chloride (NS) 250 ml @ 250 mls/hr Q1H PRN IV X1; Start 08/03/16 at 23:30 DEXTER ZAMORANO Aug 05, 2016 10:22
[2016-08-05] MEDS: FLUOXETINE 20 MG CAP PO SCH ×2 (10:39→21:00)
[2016-08-05] MEDS: MIRTAZAPINE 15 MG TAB PO SCH ×2 (10:39→21:00)
[2016-08-05 12:24] LABS: TROPONIN-I 0.034 ng/ml (0.00-0.12)
[2016-08-05 12:28] LABS: CK-MB 1.73 ng/ml (0.0-2.4)
--- NOTE | 2016-08-05 15:53 | RADRPT ---
Echocardiogram Report Patient Name: ELVIA KOLB Gender: Male Date: 1965 Study Date: 05-Aug-2016 Dish Maker: Patti Mcgovern [facility] Location: [id number] Ref. Physician: DEXTER RODRÍGUEZ Quality: Good Procedures: Transthoracic echocardiogram with complete 2D, M-Mode, and doppler examination. Indications: Cardiomyopathy. 2D/M Mode Doppler Measurement Value Normal Ranges Measurement Value Normal Ranges LVIDd 2D 6.0 3.5 - 5.6 cm AV Peak Ashvin 0.8 m/sec LVIDs 2D 4.9 2.1 - 4.1 cm AV Peak PG 2.4 mmHg LVPWd 2D 0.8 0.6 - 1.1 cm LVOT Peak Ashvin 0.7 m/sec IVSd 2D 1.2 0.6 - 1.1 cm LVOT Peak PG 1.8 mmHg AoR Diam 2D 3.3 2.0 - 3.7 cm TR Peak Ashvin 2.5 m/sec EDV 2D 179.2 cm3 TR Peak PG 24.2 mmHg ESV 2D 118.9 cm3 RVSP 32.0 mmHg LA Dimen 2D 4.1 2.3 - 4.0 cm Findings Left Ventricle: Mild hypertrophy of the basal septum. Mild enlargement of left ventricle cavity. Severe global left ventricular systolic dysfunction. Ejection fraction is visually estimated at 20 %. Right Ventricle: Moderate right ventricular systolic dysfunction. Moderate enlargement of right ventricle. Left Atrium: There is mild enlargement of left atrium. Right Atrium: There is severe enlargement of right atrium. Mitral Valve: Mitral valve leaflets appear mildly thickened. Trace mitral regurgitation. Aortic Valve: Normal appearance of the aortic valve. No significant aortic stenosis or insufficiency. Tricuspid Valve: Normal appearance of the tricuspid valve. Estimated peak PA systolic pressure 32 mmHg. There is moderate tricuspid regurgitation. Pulmonic Valve: Normal pulmonic valve appearance. There is mild pulmonic regurgitation. Pericardium: Normal pericardium with no significant pericardial effusion. Aorta: Normal aortic root. IVC: Dilated IVC with respiratory collapse consistent with elevated right atrial pressure. Conclusions 1.Mild hypertrophy of the basal septum. Mild enlargement of left ventricle cavity. Severe global left ventricular systolic dysfunction. Ejection fraction is visually estimated at 20 %. 2.Moderate right ventricular systolic dysfunction. Moderate enlargement of right ventricle. 3.There is mild enlargement of left atrium. 4.There is severe enlargement of right atrium. 5.Mitral valve leaflets appear mildly thickened. Trace mitral regurgitation. 6.Normal appearance of the tricuspid valve. Estimated peak PA systolic pressure 32 mmHg. There is moderate tricuspid regurgitation. 7.Normal pulmonic valve appearance. There is mild pulmonic regurgitation. Electronically Signed By: Dexter Rodríguez 05-Aug-2016 15:52:56 -0800 Patient Name: ELVIA KOLB Study Date: 05-Aug-2016 [id number]
[2016-08-05] MEDS: CEFTRIAXONE 1 GM/50 ML (PMX) 50 ML IVPB SCH (16:57)
--- NOTE | 2016-08-05 17:42 | CONS ---
Date/Time of Note Date/Time of Note DATE: 08/05/16 TIME: 17:41 Assessment/Plan Assessment/Plan Additional Assessment/Plan Additional Assessment/Plan IMPRESSION: 1. Gastroparesis with large output, 2500 mL coffee-ground color. Hematocrit is stable.resolved 2. Positive stool guaiac. 3. Ischemic liver.liver function improving 4. Diabetes mellitus. 5. Ascites. 6. Electrolyte imbalance. 7. Ischemic cardiomyopathy with ejection fraction for 25%. 8. Pulmonary hypertension. 9.renal failure,steadily improving Plan iv hydration PPI monitor H&H pt.declined EGD Consultation Date/Type/Reason Admit Date/Time Aug 02, 2016 at 08:32 Type of Consultation: Cardiology 24 HR Interval Summary Free Text/Dictation tolerating diet no further bleeding Constitutional: improved, no complaints Exam/Review of Systems Vital Signs Vitals Vital Signs Date Time Temp Pulse Resp B/P Pulse Ox O2 Delivery O2 Flow Rate FiO2 08/05/16 16:00 84 08/05/16 16:00 98.4 12 100/85 99 Nasal Cannula 2.0 Intake and Output 08/04/16 08/04/16 08/05/16 15:00 23:00 07:00 Intake Total 100 ml 650 ml 790 ml Output Total 925 ml 1230 ml 1300 ml Balance -825 ml -580 ml -510 ml Exam Constitutional: alert, oriented, well developed Psych: nl mood/affect, no complaints Head: atraumatic, normocephalic Eyes: EOMI, PERRL, nl conjunctiva, nl lids, nl sclera ENMT: nl external ears & nose, nl lips & teeth, nl nasal mucosa & septum Neck: non-tender, supple Respiratory: clear to auscultation, normal air movement Cardiovascular: nl pulses, regular rate and rhythm Gastrointestinal: nl liver, spleen, non-tender, soft Musculoskeletal: nl extremities to inspection, nl gait and stance Extremities: normal pulses Neurological: PAPER GLUING OPERATOR II-XII intact, nl mental status, nl speech, nl strength Skin: nl turgor, No rash or lesions Lymph: nl lymph nodes Results Result Diagram: 08/05/16 0536 08/05/16 0536 Results 24 hrs Laboratory Tests Test 08/04/16 18:06 08/04/16 23:48 08/05/16 05:36 08/05/16 05:45 Bedside Glucose 137 161 168 Alanine Aminotransferase (ALT/SGPT) 767 H Albumin 2.6 L Albumin/Globulin Ratio 0.70 Alkaline Phosphatase 74 Anion Gap 17 H Aspartate Amino Transf (AST/SGOT) 523 #H Basophils # 0.0 Basophils % 0.1 Blood Urea Nitrogen 64 H Calcium Level 8.1 L Carbon Dioxide Level 28 Chloride Level 106 Creatinine 1.69 H Direct Bilirubin 0.50 H Eosinophils # 0.0 Eosinophils % 0.0 Globulin 3.70 H Glucose Level 149 Hematocrit 37.9 L Hemoglobin 12.4 L Hemoglobin A1c 6.3 H Indirect Bilirubin 0.7 Lactic Acid Level 1.6 Lymphocytes # 1.2 Lymphocytes % 9.8 L Mean Corpuscular Hemoglobin 27.4 L Mean Corpuscular Hemoglobin Concent 32.7 Mean Corpuscular Volume 83.8 Mean Platelet Volume 12.6 H Monocytes # 0.5 Monocytes % 4.5 Neutrophils # 10.1 H Neutrophils % 85.3 H Nucleated Red Blood Cells # 0.1 H Nucleated Red Blood Cells % 0.5 H Platelet Count 107 L Potassium Level 3.5 Red Blood Count 4.52 L Red Cell Distribution Width 21.2 H Sodium Level 147 H Total Bilirubin 1.2 Total Protein 6.3 White Blood Count 11.9 H Test 08/05/16 11:42 08/05/16 12:12 08/05/16 17:16 Creatine Kinase 132 Creatine Kinase Index 1.3 Creatinine Kinase MB (Mass) 1.73 Troponin I 0.034 Bedside Glucose 154 185 Medications Medications Current Medications Aspirin (Aspirin) 81 mg DAILY PO Last administered on 08/02/16 09:00; Admin Dose 81 MG; Start 08/02/16 at 09:00; Status Future Hold Carvedilol (Coreg) 3.125 mg BID PO ; Start 08/02/16 at 09:00 Fluoxetine HCl (Prozac) 80 mg BID PO Last administered on 08/05/16 10:39; Admin Dose 80 MG; Start 08/02/16 at 09:00 Insulin Glargine (Lantus) 12 unit QHS SC Last administered on 08/04/16 20:39; Admin Dose 12 UNIT; Start 08/02/16 at 21:00 Mirtazapine (Remeron) 30 mg BID PO Last administered on 08/05/16 10:39; Admin Dose 30 MG; Start 08/02/16 at 09:00 Flumazenil (Romazicon) 0.2 mg Q1M PRN IV BENZODIAZEPINE OVERDOSE; Start at 09:00 Naloxone HCl (Narcan) 0.4 mg Q3M PRN IV DECREASED REPIRATORY RATE; Start at 09:00 Ondansetron HCl (Zofran Inj) 4 mg Q6H PRN IV NAUSEA AND/OR VOMITING Last administered on 08/04/16 02:34; Admin Dose 4 MG; Start 08/02/16 at 09:00 Nitroglycerin (Nitroglycerin (Sl Tab) 0.4 Mg) 1 tab Q5M PRN SL CHEST PAIN; Start 08/02/16 at 09:00 Acetaminophen (Tylenol Tab) 650 mg Q6H PRN PO PAIN LEVEL 1-3 OR FEVER; Start at 09:00 Lorazepam (Ativan) 1 mg Q2H PRN IV ANXIETY; Start 08/02/16 at 09:00 Zolpidem Tartrate (Ambien) 5 mg QHS PRN PO INSOMNIA; Start 08/02/16 at 21:00 Docusate Sodium (Colace) 100 mg Q12H PRN PO CONSTIPATION; Start 08/02/16 at 09: 00 Magnesium Hydroxide (Milk Of Mag) 30 ml DAILY PRN PO CONSTIPATION; Start at 09:00 Bisacodyl (Dulcolax) 5 mg DAILY PRN PO CONSTIPATION; Start 08/02/16 at 09:00 Miscellaneous Information 1 ea NOTE XX ; Start 08/02/16 at 10:00 Glucose (Glutose) 15 gm Q15M PRN PO DECREASED GLUCOSE; Start 08/02/16 at 10:00 Glucose (Glutose) 22.5 gm Q15M PRN PO DECREASED GLUCOSE; Start 08/02/16 at 10: 00 Dextrose (D50w Syringe) 25 ml Q15M PRN IV DECREASED GLUCOSE; Start 08/02/16 at 10:00 Dextrose (D50w Syringe) 50 ml Q15M PRN IV DECREASED GLUCOSE Last administered on 08/02/16 14:11; Admin Dose 50 ML; Start 08/02/16 at 10:00 Glucagon (Glucagen) 1 mg Q15M PRN IM DECREASED GLUCOSE; Start 08/02/16 at 10:00 Glucose 15 gm 15 gm Q15M PRN BUCCAL DECREASED GLUCOSE; Start 08/02/16 at 10:00 Ceftriaxone Sodium (Rocephin) 50 ml @ 100 mls/hr Q24H IVPB Last administered on 08/05/16 16:57; Admin Dose 100 MLS/HR; Start 08/03/16 at 17:00 Pantoprazole (Protonix Iv) 40 mg DAILY@06 IV Last administered on 08/05/16 05: 49; Admin Dose 40 MG; Start 08/04/16 at 06:00 Insulin Aspart (Novolog Insulin Pen) (Adult SC Insulin - Mild Algorithm)... Q6 SC Last administered on 08/05/16 12:00; Admin Dose 1 UNIT; Start 08/03/16 at 18 :00 Hydralazine HCl (Apresoline) 10 mg Q12 PO ; Start 08/05/16 at 11:00 MARK FARFAN MD Aug 05, 2016 17:42
[2016-08-05 19:18] LABS: TROPONIN-I 0.031 ng/ml (0.00-0.12)
[2016-08-05 19:23] LABS: CK-MB 1.33 ng/ml (0.0-2.4)
[2016-08-05] MEDS: INSULIN GLARGINE [LANtus] 3 ML PEN SC SCH (21:44)
--- NOTE | 2016-08-05 22:49 | PN ---
Date/Time of Note Date/Time of Note DATE: 08/05/16 TIME: 22:47 Assessment/Plan VTE Prophylaxis VTE Prophylaxis Intervention: other Lines/Catheters IV Catheter Type (from Nrs): Saline Lock Urinary Cath still in place: Yes Reason Cath still needed: other (indicate) Assessment/Plan Chief Complaint/Hosp Course IMPRESSION: 1. Cardiac arrhythmia, status post ventricular tachycardia. 2. Hypertension. 3. Hyperkalemia.better 4. Chronic kidney disease. 5. Electrolyte imbalance. 6. Ascites.mild 7. Drug abuse. 8. Systolic heart failure. 9 gi bleed 10 drug abuse 11lactic acidosis better 12 sirs plan lasix per gi labs am Problems: Subjective 24 Hr Interval Summary Respiratory: no complaints, No cough, No shortness of breath Cardiovascular: no complaints Gastrointestinal: no complaints Exam/Review of Systems Vital Signs Vitals Vital Signs Date Time Temp Pulse Resp B/P Pulse Ox O2 Delivery O2 Flow Rate FiO2 08/05/16 21:00 83 13 102/86 100 Nasal Cannula 2.0 08/05/16 19:00 98.5 Intake and Output 08/04/16 08/04/16 08/05/16 15:00 23:00 07:00 Intake Total 100 ml 650 ml 790 ml Output Total 925 ml 1230 ml 1300 ml Balance -825 ml -580 ml -510 ml Exam Respiratory: clear to auscultation Cardiovascular: regular rate and rhythm Gastrointestinal: bowel sounds, soft Extremities: edema Results Result Diagram: 08/05/16 0536 08/05/16 0536 Results 24 hrs Laboratory Tests Test 08/04/16 23:48 08/05/16 05:36 08/05/16 05:45 08/05/16 11:42 Bedside Glucose 161 168 Alanine Aminotransferase (ALT/SGPT) 767 H Albumin 2.6 L Albumin/Globulin Ratio 0.70 Alkaline Phosphatase 74 Anion Gap 17 H Aspartate Amino Transf (AST/SGOT) 523 #H Basophils # 0.0 Basophils % 0.1 Blood Urea Nitrogen 64 H Calcium Level 8.1 L Carbon Dioxide Level 28 Chloride Level 106 Creatinine 1.69 H Direct Bilirubin 0.50 H Eosinophils # 0.0 Eosinophils % 0.0 Globulin 3.70 H Glucose Level 149 Hematocrit 37.9 L Hemoglobin 12.4 L Hemoglobin A1c 6.3 H Indirect Bilirubin 0.7 Lactic Acid Level 1.6 Lymphocytes # 1.2 Lymphocytes % 9.8 L Mean Corpuscular Hemoglobin 27.4 L Mean Corpuscular Hemoglobin Concent 32.7 Mean Corpuscular Volume 83.8 Mean Platelet Volume 12.6 H Monocytes # 0.5 Monocytes % 4.5 Neutrophils # 10.1 H Neutrophils % 85.3 H Nucleated Red Blood Cells # 0.1 H Nucleated Red Blood Cells % 0.5 H Platelet Count 107 L Potassium Level 3.5 Red Blood Count 4.52 L Red Cell Distribution Width 21.2 H Sodium Level 147 H Total Bilirubin 1.2 Total Protein 6.3 White Blood Count 11.9 H Creatine Kinase 132 Creatine Kinase Index 1.3 Creatinine Kinase MB (Mass) 1.73 Troponin I 0.034 Test 08/05/16 12:12 08/05/16 17:16 08/05/16 18:15 Bedside Glucose 154 185 Creatine Kinase 83 Creatine Kinase Index 1.6 Creatinine Kinase MB (Mass) 1.33 Troponin I 0.031 Medications Medications Current Medications Aspirin (Aspirin) 81 mg DAILY PO Last administered on 08/02/16 09:00; Admin Dose 81 MG; Start 08/02/16 at 09:00; Status Future Hold Carvedilol (Coreg) 3.125 mg BID PO ; Start 08/02/16 at 09:00 Insulin Glargine (Lantus) 12 unit QHS SC Last administered on 08/05/16 21:44; Admin Dose 12 UNIT; Start 08/02/16 at 21:00 Flumazenil (Romazicon) 0.2 mg Q1M PRN IV BENZODIAZEPINE OVERDOSE; Start at 09:00 Naloxone HCl (Narcan) 0.4 mg Q3M PRN IV DECREASED REPIRATORY RATE; Start at 09:00 Ondansetron HCl (Zofran Inj) 4 mg Q6H PRN IV NAUSEA AND/OR VOMITING Last administered on 08/04/16 02:34; Admin Dose 4 MG; Start 08/02/16 at 09:00 Nitroglycerin (Nitroglycerin (Sl Tab) 0.4 Mg) 1 tab Q5M PRN SL CHEST PAIN; Start 08/02/16 at 09:00 Acetaminophen (Tylenol Tab) 650 mg Q6H PRN PO PAIN LEVEL 1-3 OR FEVER; Start at 09:00 Lorazepam (Ativan) 1 mg Q2H PRN IV ANXIETY; Start 08/02/16 at 09:00 Zolpidem Tartrate (Ambien) 5 mg QHS PRN PO INSOMNIA; Start 08/02/16 at 21:00 Docusate Sodium (Colace) 100 mg Q12H PRN PO CONSTIPATION; Start 08/02/16 at 09: 00 Magnesium Hydroxide (Milk Of Mag) 30 ml DAILY PRN PO CONSTIPATION; Start at 09:00 Bisacodyl (Dulcolax) 5 mg DAILY PRN PO CONSTIPATION; Start 08/02/16 at 09:00 Miscellaneous Information 1 ea NOTE XX ; Start 08/02/16 at 10:00 Glucose (Glutose) 15 gm Q15M PRN PO DECREASED GLUCOSE; Start 08/02/16 at 10:00 Glucose (Glutose) 22.5 gm Q15M PRN PO DECREASED GLUCOSE; Start 08/02/16 at 10: 00 Dextrose (D50w Syringe) 25 ml Q15M PRN IV DECREASED GLUCOSE; Start 08/02/16 at 10:00 Dextrose (D50w Syringe) 50 ml Q15M PRN IV DECREASED GLUCOSE Last administered on 08/02/16 14:11; Admin Dose 50 ML; Start 08/02/16 at 10:00 Glucagon (Glucagen) 1 mg Q15M PRN IM DECREASED GLUCOSE; Start 08/02/16 at 10:00 Glucose 15 gm 15 gm Q15M PRN BUCCAL DECREASED GLUCOSE; Start 08/02/16 at 10:00 Ceftriaxone Sodium (Rocephin) 50 ml @ 100 mls/hr Q24H IVPB Last administered on 08/05/16 16:57; Admin Dose 100 MLS/HR; Start 08/03/16 at 17:00 Pantoprazole (Protonix Iv) 40 mg DAILY@06 IV Last administered on 08/05/16 05: 49; Admin Dose 40 MG; Start 08/04/16 at 06:00 Insulin Aspart (Novolog Insulin Pen) (Adult SC Insulin - Mild Algorithm)... Q6 SC Last administered on 08/05/16 17:46; Admin Dose 2 UNIT; Start 08/03/16 at 18 :00 Hydralazine HCl (Apresoline) 10 mg Q12 PO ; Start 08/05/16 at 11:00 Fluoxetine HCl (Prozac) 40 mg BID PO ; Start 08/05/16 at 21:00 Mirtazapine (Remeron) 15 mg BID PO ; Start 08/05/16 at 21:00 ANDREAS FRANCISCO MD Aug 05, 2016 22:49
[2016-08-06] VITALS (20 sets, daily range): BP systolic 81–103; BP diastolic 60–82; PULSE 70–88; RESP 11–21
[2016-08-06 04:51] LABS: ADD SCAN DIFF NO
[2016-08-06 05:02] LABS: ABNORMAL IP MESSAGE 1; BASOPHILS % 0.1 % (0.0-2.0); EOSINOPHILS % 0.1 % (0.0-7.0); HEMATOCRIT 38.5 % (42.0-52.0); HEMOGLOBIN 12.5 g/dl (14.0-18.0); LYMPHOCYTES # 1.5 10^3/ul (0.8-2.9); LYMPHOCYTES % 12.1 % (15.0-51.0); MEAN CORPUSCULAR HEMOGLOBIN 27.2 pg (29.0-33.0); MEAN CORPUSCULAR HGB CONC 32.5 g/dl (32.0-37.0); MEAN CORPUSCULAR VOLUME 83.9 fl (82.0-101.0); MEAN PLATELET VOLUME 11.2 fl (7.4-10.4); MONOCYTE # 0.9 10^3/ul (0.3-0.9); MONOCYTES % 7.8 % (0.0-11.0); NEUTROPHIL # 9.6 10^3/ul (1.6-7.5); NEUTROPHILS % 79.2 % (39.0-77.0); NUCLEATED RED BLOOD CELLS # 0.1 10^3/ul (0.0-0.0); NUCLEATED RED BLOOD CELLS% 0.7 /100WBC (0.0-0.0); PLATELET COUNT 95 10^3/UL (140-415); RED BLOOD COUNT 4.59 10^6/ul (4.70-6.10); RED CELL DISTRIBUTION WIDTH 21.3 % (11.5-14.5); WHITE BLOOD COUNT 12.1 10^3/ul (4.8-10.8)
[2016-08-06 05:11] LABS: ALBUMIN 2.8 g/dl (3.3-4.9)
[2016-08-06 05:12] LABS: POTASSIUM 3.7 mmol/L (3.5-5.1)
[2016-08-06 05:14] LABS: ALBUMIN/GLOBULIN RATIO 0.7; BILIRUBIN,DIRECT 0.3 mg/dl (0.00-0.20); BILIRUBIN,INDIRECT 0.8 mg/dl (0-1.1); BILIRUBIN,TOTAL 1.1 mg/dl (0.2-1.3); CREATININE 1.29 mg/dl (0.61-1.24); TOTAL PROTEIN 6.8 g/dl (6.1-8.1)
[2016-08-06 05:15] LABS: CALCIUM 8.1 mg/dl (8.4-10.2)
[2016-08-06] MEDS: Insulin NOVOLOG SS MILD Algorithm (NPO/TPN/ENTERAL FEEDS) SC SCH ×5 (06:00→23:57)
[2016-08-06] MEDS: PANTOPRAZOLE 40 MG INJ IV SCH (06:26)
[2016-08-06] MEDS: FLUOXETINE 20 MG CAP PO SCH ×2 (09:43→21:33)
[2016-08-06] MEDS: MIRTAZAPINE 15 MG TAB PO SCH (09:43)
--- NOTE | 2016-08-06 10:44 | CONS ---
Date/Time of Note Date/Time of Note DATE: 08/06/16 TIME: 10:43 Assessment/Plan Assessment/Plan Additional Assessment/Plan IMPRESSION: 1. Gastroparesis with large output, 2500 mL coffee-ground color. Hematocrit is stable.resolved 2. Positive stool guaiac. 3. Ischemic liver.liver function improving 4. Diabetes mellitus. 5. Ascites. 6. Electrolyte imbalance. 7. Ischemic cardiomyopathy with ejection fraction for 25%. 8. Pulmonary hypertension. 9.renal failure,steadily improving Plan iv hydration PPI monitor H&H pt.declined EGD Consultation Date/Type/Reason Admit Date/Time Aug 02, 2016 at 08:32 Type of Consultation: Cardiology 24 HR Interval Summary Constitutional: improved, no complaints Exam/Review of Systems Vital Signs Vitals Vital Signs Date Time Temp Pulse Resp B/P Pulse Ox O2 Delivery O2 Flow Rate FiO2 08/06/16 10:00 82 18 103/80 99 08/06/16 09:00 Room Air 08/06/16 08:00 98.0 2.0 Intake and Output 08/05/16 08/05/16 08/06/16 15:00 23:00 07:00 Intake Total 1200 ml 800 ml 800 ml Output Total 950 ml 485 ml 700 ml Balance 250 ml 315 ml 100 ml Exam Constitutional: alert, oriented, well developed Psych: nl mood/affect, no complaints Head: atraumatic, normocephalic Eyes: EOMI, PERRL, nl conjunctiva, nl lids, nl sclera ENMT: nl external ears & nose, nl lips & teeth, nl nasal mucosa & septum Neck: non-tender, supple Respiratory: clear to auscultation, normal air movement Cardiovascular: nl pulses, regular rate and rhythm Gastrointestinal: nl liver, spleen, non-tender, soft Musculoskeletal: nl extremities to inspection, nl gait and stance Extremities: normal pulses Neurological: SCRAP BURNER II-XII intact, nl mental status, nl speech, nl strength Skin: nl turgor, No rash or lesions Lymph: nl lymph nodes Results Result Diagram: 08/06/16 0433 08/06/16 0433 Results 24 hrs Laboratory Tests Test 08/05/16 11:42 08/05/16 12:12 08/05/16 17:16 08/05/16 18:15 Creatine Kinase 132 83 Creatine Kinase Index 1.3 1.6 Creatinine Kinase MB (Mass) 1.73 1.33 Troponin I 0.034 0.031 Bedside Glucose 154 185 Test 08/06/16 01:12 08/06/16 04:33 08/06/16 06:26 Bedside Glucose 150 121 Alanine Aminotransferase (ALT/SGPT) 598 H Albumin 2.8 L Albumin/Globulin Ratio 0.70 Alkaline Phosphatase 87 Anion Gap 18 H Aspartate Amino Transf (AST/SGOT) 193 #H Basophils # 0.0 Basophils % 0.1 Blood Urea Nitrogen 54 H Calcium Level 8.1 L Carbon Dioxide Level 27 Chloride Level 102 Creatinine 1.29 H Direct Bilirubin 0.30 #H Eosinophils # 0.0 Eosinophils % 0.1 Globulin 4.00 H Glucose Level 131 Hematocrit 38.5 L Hemoglobin 12.5 L Indirect Bilirubin 0.8 Lymphocytes # 1.5 Lymphocytes % 12.1 L Mean Corpuscular Hemoglobin 27.2 L Mean Corpuscular Hemoglobin Concent 32.5 Mean Corpuscular Volume 83.9 Mean Platelet Volume 11.2 H Monocytes # 0.9 Monocytes % 7.8 Neutrophils # 9.6 H Neutrophils % 79.2 H Nucleated Red Blood Cells # 0.1 H Nucleated Red Blood Cells % 0.7 H Platelet Count 95 L Potassium Level 3.7 Red Blood Count 4.59 L Red Cell Distribution Width 21.3 H Sodium Level 143 Total Bilirubin 1.1 Total Protein 6.8 White Blood Count 12.1 H Medications Medications Current Medications Aspirin (Aspirin) 81 mg DAILY PO Last administered on 08/02/16 09:00; Admin Dose 81 MG; Start 08/02/16 at 09:00; Status Future Hold Carvedilol (Coreg) 3.125 mg BID PO Last administered on 08/06/16 09:47; Admin Dose 3.125 MG; Start 08/02/16 at 09:00 Insulin Glargine (Lantus) 12 unit QHS SC Last administered on 08/05/16 21:44; Admin Dose 12 UNIT; Start 08/02/16 at 21:00 Flumazenil (Romazicon) 0.2 mg Q1M PRN IV BENZODIAZEPINE OVERDOSE; Start at 09:00 Naloxone HCl (Narcan) 0.4 mg Q3M PRN IV DECREASED REPIRATORY RATE; Start at 09:00 Ondansetron HCl (Zofran Inj) 4 mg Q6H PRN IV NAUSEA AND/OR VOMITING Last administered on 08/04/16 02:34; Admin Dose 4 MG; Start 08/02/16 at 09:00 Nitroglycerin (Nitroglycerin (Sl Tab) 0.4 Mg) 1 tab Q5M PRN SL CHEST PAIN; Start 08/02/16 at 09:00 Acetaminophen (Tylenol Tab) 650 mg Q6H PRN PO PAIN LEVEL 1-3 OR FEVER; Start at 09:00 Lorazepam (Ativan) 1 mg Q2H PRN IV ANXIETY; Start 08/02/16 at 09:00 Zolpidem Tartrate (Ambien) 5 mg QHS PRN PO INSOMNIA; Start 08/02/16 at 21:00 Docusate Sodium (Colace) 100 mg Q12H PRN PO CONSTIPATION; Start 08/02/16 at 09: 00 Magnesium Hydroxide (Milk Of Mag) 30 ml DAILY PRN PO CONSTIPATION; Start at 09:00 Bisacodyl (Dulcolax) 5 mg DAILY PRN PO CONSTIPATION; Start 08/02/16 at 09:00 Miscellaneous Information 1 ea NOTE XX ; Start 08/02/16 at 10:00 Glucose (Glutose) 15 gm Q15M PRN PO DECREASED GLUCOSE; Start 08/02/16 at 10:00 Glucose (Glutose) 22.5 gm Q15M PRN PO DECREASED GLUCOSE; Start 08/02/16 at 10: 00 Dextrose (D50w Syringe) 25 ml Q15M PRN IV DECREASED GLUCOSE; Start 08/02/16 at 10:00 Dextrose (D50w Syringe) 50 ml Q15M PRN IV DECREASED GLUCOSE Last administered on 08/02/16 14:11; Admin Dose 50 ML; Start 08/02/16 at 10:00 Glucagon (Glucagen) 1 mg Q15M PRN IM DECREASED GLUCOSE; Start 08/02/16 at 10:00 Glucose 15 gm 15 gm Q15M PRN BUCCAL DECREASED GLUCOSE; Start 08/02/16 at 10:00 Ceftriaxone Sodium (Rocephin) 50 ml @ 100 mls/hr Q24H IVPB Last administered on 08/05/16 16:57; Admin Dose 100 MLS/HR; Start 08/03/16 at 17:00 Pantoprazole (Protonix Iv) 40 mg DAILY@06 IV Last administered on 08/06/16 06: 26; Admin Dose 40 MG; Start 08/04/16 at 06:00 Insulin Aspart (Novolog Insulin Pen) (Adult SC Insulin - Mild Algorithm)... Q6 SC Last administered on 08/05/16 17:46; Admin Dose 2 UNIT; Start 08/03/16 at 18 :00 Hydralazine HCl (Apresoline) 10 mg Q12 PO Last administered on 08/06/16 09:47; Admin Dose 10 MG; Start 08/05/16 at 11:00 Fluoxetine HCl (Prozac) 40 mg BID PO Last administered on 08/06/16 09:43; Admin Dose 40 MG; Start 08/05/16 at 21:00 Mirtazapine (Remeron) 15 mg BID PO Last administered on 08/06/16 09:43; Admin Dose 15 MG; Start 08/05/16 at 21:00 MARK FARFAN MD Aug 06, 2016 10:44
--- NOTE | 2016-08-06 11:26 | CONS ---
Date/Time of Note Date/Time of Note DATE: 08/06/16 TIME: 11:21 Assessment/Plan Assessment/Plan Chief Complaint/Hosp Course Imp: 1.Cardiomyopathy-EF 25% by echo 02/20 2. positive troponin-minimal in setting of renal failure-now downtrended and negative 3.CHF-systolic acute on chronic 4.HTN 5.Substance abuse 6.Ventricular tachycardia-no recurrence 7.REnal failure-slowly improving 8.Coagulopathy Recc: -Tele -trend cardiac enzymes -Continue low dose BB/hydralazine as tolerated -Follow volume status and renal function closely -Lexiscan to assess for significant ischemia causing VT/low EF today Problems: Consultation Date/Type/Reason Admit Date/Time Aug 02, 2016 at 08:32 Initial Consult Date 08/02/16 Type of Consultation: Cardiology Reason for Consultation VT/cardiomyopathy Referring Provider: ANDREAS FRANCISCO MD Exam/Review of Systems Vital Signs Vitals Vital Signs Date Time Temp Pulse Resp B/P Pulse Ox O2 Delivery O2 Flow Rate FiO2 08/06/16 10:00 82 18 103/80 99 08/06/16 09:00 Room Air 08/06/16 08:00 98.0 2.0 Intake and Output 08/05/16 08/05/16 08/06/16 15:00 23:00 07:00 Intake Total 1200 ml 800 ml 800 ml Output Total 950 ml 485 ml 775 ml Balance 250 ml 315 ml 25 ml Exam Review of Systems: CONSTITUTIONAL: No fevers, chills. PULMONARY: mild sob CARDIOVASCULAR: No chest pain/palpitations GASTROINTESTINAL: No nausea/vomiting. GENITOURINARY: No hematuria/dysuria. MUSCULOSKELETAL: No myagias/arthalgias. PSYCHIATRIC: The patient denies depression. NEUROLOGIC: No weakness Constitutional: alert Psych: no complaints Head: normocephalic ENMT: mucosa pink and moist Neck: jvd, supple Respiratory: diminished breath sounds Cardiovascular: regular rate and rhythm Gastrointestinal: non-tender, soft Musculoskeletal: muscle tone Extremities: edema (none) Neurological: other (No focal deficits) Results Result Diagram: 08/06/16 0433 08/06/16 0433 Results 24 hrs Laboratory Tests Test 08/05/16 11:42 08/05/16 12:12 08/05/16 17:16 08/05/16 18:15 Creatine Kinase 132 83 Creatine Kinase Index 1.3 1.6 Creatinine Kinase MB (Mass) 1.73 1.33 Troponin I 0.034 0.031 Bedside Glucose 154 185 Test 08/06/16 01:12 08/06/16 04:33 08/06/16 06:26 Bedside Glucose 150 121 Alanine Aminotransferase (ALT/SGPT) 598 H Albumin 2.8 L Albumin/Globulin Ratio 0.70 Alkaline Phosphatase 87 Anion Gap 18 H Aspartate Amino Transf (AST/SGOT) 193 #H Basophils # 0.0 Basophils % 0.1 Blood Urea Nitrogen 54 H Calcium Level 8.1 L Carbon Dioxide Level 27 Chloride Level 102 Creatinine 1.29 H Direct Bilirubin 0.30 #H Eosinophils # 0.0 Eosinophils % 0.1 Globulin 4.00 H Glucose Level 131 Hematocrit 38.5 L Hemoglobin 12.5 L Indirect Bilirubin 0.8 Lymphocytes # 1.5 Lymphocytes % 12.1 L Mean Corpuscular Hemoglobin 27.2 L Mean Corpuscular Hemoglobin Concent 32.5 Mean Corpuscular Volume 83.9 Mean Platelet Volume 11.2 H Monocytes # 0.9 Monocytes % 7.8 Neutrophils # 9.6 H Neutrophils % 79.2 H Nucleated Red Blood Cells # 0.1 H Nucleated Red Blood Cells % 0.7 H Platelet Count 95 L Potassium Level 3.7 Red Blood Count 4.59 L Red Cell Distribution Width 21.3 H Sodium Level 143 Total Bilirubin 1.1 Total Protein 6.8 White Blood Count 12.1 H Medications Medications Current Medications Aspirin (Aspirin) 81 mg DAILY PO Last administered on 08/02/16 09:00; Admin Dose 81 MG; Start 08/02/16 at 09:00; Status Future Hold Carvedilol (Coreg) 3.125 mg BID PO Last administered on 08/06/16 09:47; Admin Dose 3.125 MG; Start 08/02/16 at 09:00 Insulin Glargine (Lantus) 12 unit QHS SC Last administered on 08/05/16 21:44; Admin Dose 12 UNIT; Start 08/02/16 at 21:00 Flumazenil (Romazicon) 0.2 mg Q1M PRN IV BENZODIAZEPINE OVERDOSE; Start at 09:00 Naloxone HCl (Narcan) 0.4 mg Q3M PRN IV DECREASED REPIRATORY RATE; Start at 09:00 Ondansetron HCl (Zofran Inj) 4 mg Q6H PRN IV NAUSEA AND/OR VOMITING Last administered on 08/04/16 02:34; Admin Dose 4 MG; Start 08/02/16 at 09:00 Nitroglycerin (Nitroglycerin (Sl Tab) 0.4 Mg) 1 tab Q5M PRN SL CHEST PAIN; Start 08/02/16 at 09:00 Acetaminophen (Tylenol Tab) 650 mg Q6H PRN PO PAIN LEVEL 1-3 OR FEVER; Start at 09:00 Lorazepam (Ativan) 1 mg Q2H PRN IV ANXIETY; Start 08/02/16 at 09:00 Zolpidem Tartrate (Ambien) 5 mg QHS PRN PO INSOMNIA; Start 08/02/16 at 21:00 Docusate Sodium (Colace) 100 mg Q12H PRN PO CONSTIPATION; Start 08/02/16 at 09: 00 Magnesium Hydroxide (Milk Of Mag) 30 ml DAILY PRN PO CONSTIPATION; Start at 09:00 Bisacodyl (Dulcolax) 5 mg DAILY PRN PO CONSTIPATION; Start 08/02/16 at 09:00 Miscellaneous Information 1 ea NOTE XX ; Start 08/02/16 at 10:00 Glucose (Glutose) 15 gm Q15M PRN PO DECREASED GLUCOSE; Start 08/02/16 at 10:00 Glucose (Glutose) 22.5 gm Q15M PRN PO DECREASED GLUCOSE; Start 08/02/16 at 10: 00 Dextrose (D50w Syringe) 25 ml Q15M PRN IV DECREASED GLUCOSE; Start 08/02/16 at 10:00 Dextrose (D50w Syringe) 50 ml Q15M PRN IV DECREASED GLUCOSE Last administered on 08/02/16 14:11; Admin Dose 50 ML; Start 08/02/16 at 10:00 Glucagon (Glucagen) 1 mg Q15M PRN IM DECREASED GLUCOSE; Start 08/02/16 at 10:00 Glucose 15 gm 15 gm Q15M PRN BUCCAL DECREASED GLUCOSE; Start 08/02/16 at 10:00 Ceftriaxone Sodium (Rocephin) 50 ml @ 100 mls/hr Q24H IVPB Last administered on 08/05/16 16:57; Admin Dose 100 MLS/HR; Start 08/03/16 at 17:00 Pantoprazole (Protonix Iv) 40 mg DAILY@06 IV Last administered on 08/06/16 06: 26; Admin Dose 40 MG; Start 08/04/16 at 06:00 Insulin Aspart (Novolog Insulin Pen) (Adult SC Insulin - Mild Algorithm)... Q6 SC Last administered on 08/05/16 17:46; Admin Dose 2 UNIT; Start 08/03/16 at 18 :00 Hydralazine HCl (Apresoline) 10 mg Q12 PO Last administered on 08/06/16 09:47; Admin Dose 10 MG; Start 08/05/16 at 11:00 Fluoxetine HCl (Prozac) 40 mg BID PO Last administered on 08/06/16 09:43; Admin Dose 40 MG; Start 08/05/16 at 21:00 Mirtazapine (Remeron) 15 mg BID PO Last administered on 08/06/16 09:43; Admin Dose 15 MG; Start 08/05/16 at 21:00 DEXTER ZAMORANO Aug 06, 2016 11:26
[2016-08-06] MEDS ORDERED: REGADENOSON 0.4 MG/5 ML SYG ONE (12:12)
--- NOTE | 2016-08-06 14:58 | CARRPT ---
DATE OF PROCEDURE: 08/06/2016 TYPE OF PROCEDURE: Lexiscan Cardiolite stress test, electrocardiogram portion. INDICATION: Ventricular tachycardia, cardiomyopathy, with severely depressed left ventricular eject ion fraction. Assess for ischemia. BASELINE VITAL SIGNS AND ELECTROCARDIOGRAM: Pulse 78, blood pressure 83/45. Electrocardiogram reve als normal sinus rhythm, rate of 80, left axis deviation, poor R-wave progression across the anterio r precordial leads, anterior T-wave inversion, inferior Q's. PROCEDURE: The patient underwent standard Lexiscan infusion protocol over 10 seconds, followed by r adiolabeled tracer. The patient's test was stopped due to completion of protocol. Maximal achieved blood pressure during the test was 108/71. Maximal heart rate during the test was 86. ELECTROCARDIOGRAM FINDINGS: The patient did not develop any new Lexiscan-induced ST or T-wave yarbrough es from baseline abnormalities. Rare documented PVCs. No PACs. SYMPTOMS: The patient had no complaints of chest pain, but positive shortness breath during stress testing, which resolved in recovery. IMPRESSION: 1. No Lexiscan-induced ST or T-wave changes from baseline abnormalities diagnostic of cardiac ische jasbir. 2. Complaints of shortness breath during stress test that resolved in recovery. No chest pain. 3. Rare premature ventricular contractions during stress testing. 4. Report of nuclear images to follow in a separate dictation. Dictated By: DEXTER VERDUZCO/EDILIA Conf#: [id number] DID#: [id number] CC: ANDREAS FRANCISCO MD;*EndCC*
--- NOTE | 2016-08-06 15:34 | RADRPT ---
PROCEDURE: Lexiscan myocardial perfusion study CLINICAL INDICATION: 51 -year-old patient complaining of chest pain. TECHNIQUE: Lexiscan 0.4 mg intravenously separate acquisition gated myocardial perfusion SPECT usi ng Tc 99m Myoview 30.1 mCi intravenously at stress and Tc-99m Myoview, 10.5 mCi intravenously at res t was performed using the rest/stress sequence. Poststress Myoview SPECT images were obtained in th e supine position. COMPARISON: No prior studies. FINDINGS: Perfusion images reveal mild nonreversible perfusion abnormality in the basal inferior wall. There is no evidence of stress-induced ischemia. Lexiscan post stress gated SPECT images demonstrate severe hypokinesis of the left ventricle. IMPRESSION: 1. No evidence of stress-induced ischemia. 2. Severe hypokinesis of the left ventricle. 3. The left ventricle ejection fraction at stress is 14%. A call report was made to Dr. Rodríguez at 03:32 p.m. on August 06, 2016. RPTAT: HH .Raquel Baca MD, Date Time Electronically viewed and signed by .Raquel Baca MD, MD on 08/06/2016 15:34 .L/
--- NOTE | 2016-08-06 16:14 | PN ---
Date/Time of Note Date/Time of Note DATE: 08/06/16 TIME: 16:12 Assessment/Plan VTE Prophylaxis VTE Prophylaxis Intervention: other Lines/Catheters IV Catheter Type (from Nrs): Saline Lock Urinary Cath still in place: Yes Reason Cath still needed: other (indicate) Assessment/Plan Chief Complaint/Hosp Course IMPRESSION: 1. Cardiac arrhythmia, status post ventricular tachycardia. 2. Hypertension. 3. Hyperkalemia.better 4. Chronic kidney disease. 5. Electrolyte imbalance. 6. Ascites.mild 7. Drug abuse. 8. Systolic heart failure. 9 gi bleed 10 drug abuse 11lactic acidosis better 12 sirs 13 abn lft plan lasix per gi labs am ck lexiscan Problems: Subjective 24 Hr Interval Summary Respiratory: No shortness of breath Cardiovascular: no complaints Exam/Review of Systems Vital Signs Vitals Vital Signs Date Time Temp Pulse Resp B/P Pulse Ox O2 Delivery O2 Flow Rate FiO2 08/06/16 14:00 75 14 92/80 98 Room Air 08/06/16 11:00 97.5 08/06/16 08:00 2.0 Intake and Output 08/05/16 08/05/16 08/06/16 15:00 23:00 07:00 Intake Total 1200 ml 800 ml 800 ml Output Total 950 ml 485 ml 775 ml Balance 250 ml 315 ml 25 ml Exam Respiratory: clear to auscultation Cardiovascular: regular rate and rhythm Gastrointestinal: soft Extremities: edema (+) Results Result Diagram: 08/06/16 0433 08/06/16 0433 Results 24 hrs Laboratory Tests Test 08/05/16 17:16 08/05/16 18:15 08/06/16 01:12 08/06/16 04:33 Bedside Glucose 185 150 Creatine Kinase 83 Creatine Kinase Index 1.6 Creatinine Kinase MB (Mass) 1.33 Troponin I 0.031 Alanine Aminotransferase (ALT/SGPT) 598 H Albumin 2.8 L Albumin/Globulin Ratio 0.70 Alkaline Phosphatase 87 Anion Gap 18 H Aspartate Amino Transf (AST/SGOT) 193 #H Basophils # 0.0 Basophils % 0.1 Blood Urea Nitrogen 54 H Calcium Level 8.1 L Carbon Dioxide Level 27 Chloride Level 102 Creatinine 1.29 H Direct Bilirubin 0.30 #H Eosinophils # 0.0 Eosinophils % 0.1 Globulin 4.00 H Glucose Level 131 Hematocrit 38.5 L Hemoglobin 12.5 L Indirect Bilirubin 0.8 Lymphocytes # 1.5 Lymphocytes % 12.1 L Mean Corpuscular Hemoglobin 27.2 L Mean Corpuscular Hemoglobin Concent 32.5 Mean Corpuscular Volume 83.9 Mean Platelet Volume 11.2 H Monocytes # 0.9 Monocytes % 7.8 Neutrophils # 9.6 H Neutrophils % 79.2 H Nucleated Red Blood Cells # 0.1 H Nucleated Red Blood Cells % 0.7 H Platelet Count 95 L Potassium Level 3.7 Red Blood Count 4.59 L Red Cell Distribution Width 21.3 H Sodium Level 143 Total Bilirubin 1.1 Total Protein 6.8 White Blood Count 12.1 H Test 08/06/16 06:26 08/06/16 11:28 Bedside Glucose 121 127 Medications Medications Current Medications Aspirin (Aspirin) 81 mg DAILY PO Last administered on 08/02/16 09:00; Admin Dose 81 MG; Start 08/02/16 at 09:00; Status Future Hold Carvedilol (Coreg) 3.125 mg BID PO Last administered on 08/06/16 09:47; Admin Dose 3.125 MG; Start 08/02/16 at 09:00 Insulin Glargine (Lantus) 12 unit QHS SC Last administered on 08/05/16 21:44; Admin Dose 12 UNIT; Start 08/02/16 at 21:00 Naloxone HCl (Narcan) 0.4 mg Q3M PRN IV DECREASED REPIRATORY RATE; Start at 09:00 Ondansetron HCl (Zofran Inj) 4 mg Q6H PRN IV NAUSEA AND/OR VOMITING Last administered on 08/04/16 02:34; Admin Dose 4 MG; Start 08/02/16 at 09:00 Nitroglycerin (Nitroglycerin (Sl Tab) 0.4 Mg) 1 tab Q5M PRN SL CHEST PAIN; Start 08/02/16 at 09:00 Acetaminophen (Tylenol Tab) 650 mg Q6H PRN PO PAIN LEVEL 1-3 OR FEVER; Start at 09:00 Zolpidem Tartrate (Ambien) 5 mg QHS PRN PO INSOMNIA; Start 08/02/16 at 21:00 Docusate Sodium (Colace) 100 mg Q12H PRN PO CONSTIPATION; Start 08/02/16 at 09: 00 Magnesium Hydroxide (Milk Of Mag) 30 ml DAILY PRN PO CONSTIPATION; Start at 09:00 Bisacodyl (Dulcolax) 5 mg DAILY PRN PO CONSTIPATION; Start 08/02/16 at 09:00 Miscellaneous Information 1 ea NOTE XX ; Start 08/02/16 at 10:00 Glucose (Glutose) 15 gm Q15M PRN PO DECREASED GLUCOSE; Start 08/02/16 at 10:00 Glucose (Glutose) 22.5 gm Q15M PRN PO DECREASED GLUCOSE; Start 08/02/16 at 10: 00 Dextrose (D50w Syringe) 25 ml Q15M PRN IV DECREASED GLUCOSE; Start 08/02/16 at 10:00 Dextrose (D50w Syringe) 50 ml Q15M PRN IV DECREASED GLUCOSE Last administered on 08/02/16 14:11; Admin Dose 50 ML; Start 08/02/16 at 10:00 Glucagon (Glucagen) 1 mg Q15M PRN IM DECREASED GLUCOSE; Start 08/02/16 at 10:00 Glucose 15 gm 15 gm Q15M PRN BUCCAL DECREASED GLUCOSE; Start 08/02/16 at 10:00 Ceftriaxone Sodium (Rocephin) 50 ml @ 100 mls/hr Q24H IVPB Last administered on 08/05/16 16:57; Admin Dose 100 MLS/HR; Start 08/03/16 at 17:00 Pantoprazole (Protonix Iv) 40 mg DAILY@06 IV Last administered on 08/06/16 06: 26; Admin Dose 40 MG; Start 08/04/16 at 06:00 Insulin Aspart (Novolog Insulin Pen) (Adult SC Insulin - Mild Algorithm)... Q6 SC Last administered on 08/05/16 17:46; Admin Dose 2 UNIT; Start 08/03/16 at 18 :00 Hydralazine HCl (Apresoline) 10 mg Q12 PO Last administered on 08/06/16 09:47; Admin Dose 10 MG; Start 08/05/16 at 11:00 Fluoxetine HCl (Prozac) 40 mg BID PO Last administered on 08/06/16 09:43; Admin Dose 40 MG; Start 08/05/16 at 21:00 ANDREAS FRANCISCO MD Aug 06, 2016 16:14
[2016-08-06] MEDS: CEFTRIAXONE 1 GM/50 ML (PMX) 50 ML IVPB SCH (19:22)
[2016-08-06] MEDS: INSULIN GLARGINE [LANtus] 3 ML PEN SC SCH (21:54)
[2016-08-07] VITALS (11 sets, daily range): BP systolic 81–104; BP diastolic 56–71; PULSE 71–79; RESP 18–20
[2016-08-07] MEDS: Insulin NOVOLOG SS MILD Algorithm (NPO/TPN/ENTERAL FEEDS) SC SCH ×3 (05:55→18:00)
[2016-08-07] MEDS: PANTOPRAZOLE 40 MG INJ IV SCH (05:55)
[2016-08-07 06:55] LABS: ADD SCAN DIFF NO
[2016-08-07 06:57] LABS: ABNORMAL IP MESSAGE 1; BASOPHILS % 0.1 % (0.0-2.0); EOSINOPHILS % 0.2 % (0.0-7.0); HEMATOCRIT 40.1 % (42.0-52.0); LYMPHOCYTES % 9.7 % (15.0-51.0); MEAN CORPUSCULAR HEMOGLOBIN 26.9 pg (29.0-33.0); MEAN CORPUSCULAR HGB CONC 32.4 g/dl (32.0-37.0); MEAN PLATELET VOLUME 11.6 fl (7.4-10.4); MONOCYTE # 0.9 10^3/ul (0.3-0.9); MONOCYTES % 8.3 % (0.0-11.0); NEUTROPHIL # 8.2 10^3/ul (1.6-7.5); NEUTROPHILS % 79.8 % (39.0-77.0); NUCLEATED RED BLOOD CELLS # 0.2 10^3/ul (0.0-0.0); NUCLEATED RED BLOOD CELLS% 1.5 /100WBC (0.0-0.0); PLATELET COUNT 110 10^3/UL (140-415); RED BLOOD COUNT 4.83 10^6/ul (4.70-6.10); WHITE BLOOD COUNT 10.3 10^3/ul (4.8-10.8)
[2016-08-07 07:20] LABS: ALBUMIN 2.6 g/dl (3.3-4.9)
[2016-08-07 07:21] LABS: POTASSIUM 3.5 mmol/L (3.5-5.1)
[2016-08-07 07:23] LABS: ALBUMIN/GLOBULIN RATIO 0.76; BILIRUBIN,DIRECT 0.4 mg/dl (0.00-0.20); BILIRUBIN,INDIRECT 0.8 mg/dl (0-1.1); BILIRUBIN,TOTAL 1.2 mg/dl (0.2-1.3); CREATININE 1.06 mg/dl (0.61-1.24)
[2016-08-07 07:24] LABS: CALCIUM 8.1 mg/dl (8.4-10.2)
[2016-08-07] MEDS: FLUOXETINE 20 MG CAP PO SCH ×2 (08:38→22:23)
--- NOTE | 2016-08-07 15:48 | CONS ---
Date/Time of Note Date/Time of Note DATE: 08/07/16 TIME: 15:44 Assessment/Plan Assessment/Plan Chief Complaint/Hosp Course Imp: 1.Cardiomyopathy-EF 25% by echo 02/20. Lexiscan negative for ischemia EF 14% 2. positive troponin-minimal in setting of renal failure-now downtrended and negative 3.CHF-systolic acute on chronic 4.HTN 5.Substance abuse 6.Ventricular tachycardia-no recurrence 7.REnal failure-slowly improving 8.Coagulopathy Recc: -Tele -Continue low dose BB/hydralazine as tolerated -Follow volume status and renal function closely -ICD eval Problems: Consultation Date/Type/Reason Admit Date/Time Aug 02, 2016 at 08:32 Initial Consult Date 08/02/16 Type of Consultation: Cardiology Reason for Consultation CHF Referring Provider: ANDREAS FRANCISCO MD Exam/Review of Systems Vital Signs Vitals Vital Signs Date Time Temp Pulse Resp B/P Pulse Ox O2 Delivery O2 Flow Rate FiO2 08/07/16 15:23 2.0 08/07/16 12:04 75 08/07/16 11:23 97.9 19 81/56 91 08/07/16 08:05 Nasal Cannula Intake and Output 08/06/16 08/06/16 08/07/16 15:00 23:00 07:00 Intake Total 250 ml 50 ml 450 ml Output Total 275 ml 1050 ml Balance -25 ml 50 ml -600 ml Exam Review of Systems: CONSTITUTIONAL: No fevers, chills. PULMONARY: No sob CARDIOVASCULAR: No chest pain/palpitations GASTROINTESTINAL: No nausea/vomiting. GENITOURINARY: No hematuria/dysuria. MUSCULOSKELETAL: No myagias/arthalgias. PSYCHIATRIC: The patient denies depression. NEUROLOGIC: No weakness Constitutional: alert, oriented Psych: no complaints Head: normocephalic ENMT: mucosa pink and moist Neck: jvd (9 cm water), supple Respiratory: diminished breath sounds Cardiovascular: regular rate and rhythm Gastrointestinal: non-tender, soft Musculoskeletal: muscle tone (normal) Extremities: edema Neurological: other (No focal deficits) Results Result Diagram: 08/07/16 0610 08/07/16 0610 Results 24 hrs Laboratory Tests Test 08/06/16 19:20 08/06/16 21:26 08/07/16 05:52 08/07/16 06:10 Bedside Glucose 146 140 119 Alanine Aminotransferase (ALT/SGPT) 379 H Albumin 2.6 L Albumin/Globulin Ratio 0.76 Alkaline Phosphatase 76 Anion Gap 15 Aspartate Amino Transf (AST/SGOT) 87 #H Basophils # 0.0 Basophils % 0.1 Blood Urea Nitrogen 47 H Calcium Level 8.1 L Carbon Dioxide Level 27 Chloride Level 100 Creatinine 1.06 Direct Bilirubin 0.40 H Eosinophils # 0.0 Eosinophils % 0.2 Globulin 3.40 H Glucose Level 110 Hematocrit 40.1 L Hemoglobin 13.0 L Indirect Bilirubin 0.8 Lymphocytes # 1.0 Lymphocytes % 9.7 L Mean Corpuscular Hemoglobin 26.9 L Mean Corpuscular Hemoglobin Concent 32.4 Mean Corpuscular Volume 83.0 Mean Platelet Volume 11.6 H Monocytes # 0.9 Monocytes % 8.3 Neutrophils # 8.2 H Neutrophils % 79.8 H Nucleated Red Blood Cells # 0.2 H Nucleated Red Blood Cells % 1.5 H Platelet Count 110 L Potassium Level 3.5 Red Blood Count 4.83 Red Cell Distribution Width 21.0 H Sodium Level 138 Total Bilirubin 1.2 Total Protein 6.0 L White Blood Count 10.3 Test 08/07/16 07:30 08/07/16 12:34 08/07/16 13:02 Bedside Glucose 85 129 Lab Scanned Report REFERENCE LAB Medications Medications Current Medications Aspirin (Aspirin) 81 mg DAILY PO Last administered on 08/02/16 09:00; Admin Dose 81 MG; Start 08/02/16 at 09:00; Status Future Hold Carvedilol (Coreg) 3.125 mg BID PO Last administered on 08/07/16 08:44; Admin Dose 3.125 MG; Start 08/02/16 at 09:00 Insulin Glargine (Lantus) 12 unit QHS SC Last administered on 08/06/16 21:54; Admin Dose 12 UNIT; Start 08/02/16 at 21:00 Naloxone HCl (Narcan) 0.4 mg Q3M PRN IV DECREASED REPIRATORY RATE; Start at 09:00 Ondansetron HCl (Zofran Inj) 4 mg Q6H PRN IV NAUSEA AND/OR VOMITING Last administered on 08/04/16 02:34; Admin Dose 4 MG; Start 08/02/16 at 09:00 Nitroglycerin (Nitroglycerin (Sl Tab) 0.4 Mg) 1 tab Q5M PRN SL CHEST PAIN; Start 08/02/16 at 09:00 Acetaminophen (Tylenol Tab) 650 mg Q6H PRN PO PAIN LEVEL 1-3 OR FEVER; Start at 09:00 Zolpidem Tartrate (Ambien) 5 mg QHS PRN PO INSOMNIA; Start 08/02/16 at 21:00 Docusate Sodium (Colace) 100 mg Q12H PRN PO CONSTIPATION; Start 08/02/16 at 09: 00 Magnesium Hydroxide (Milk Of Mag) 30 ml DAILY PRN PO CONSTIPATION; Start at 09:00 Bisacodyl (Dulcolax) 5 mg DAILY PRN PO CONSTIPATION; Start 08/02/16 at 09:00 Miscellaneous Information 1 ea NOTE XX ; Start 08/02/16 at 10:00 Glucose (Glutose) 15 gm Q15M PRN PO DECREASED GLUCOSE; Start 08/02/16 at 10:00 Glucose (Glutose) 22.5 gm Q15M PRN PO DECREASED GLUCOSE; Start 08/02/16 at 10: 00 Dextrose (D50w Syringe) 25 ml Q15M PRN IV DECREASED GLUCOSE; Start 08/02/16 at 10:00 Dextrose (D50w Syringe) 50 ml Q15M PRN IV DECREASED GLUCOSE Last administered on 08/02/16 14:11; Admin Dose 50 ML; Start 08/02/16 at 10:00 Glucagon (Glucagen) 1 mg Q15M PRN IM DECREASED GLUCOSE; Start 08/02/16 at 10:00 Glucose 15 gm 15 gm Q15M PRN BUCCAL DECREASED GLUCOSE; Start 08/02/16 at 10:00 Ceftriaxone Sodium (Rocephin) 50 ml @ 100 mls/hr Q24H IVPB Last administered on 08/06/16 19:22; Admin Dose 100 MLS/HR; Start 08/03/16 at 17:00 Pantoprazole (Protonix Iv) 40 mg DAILY@06 IV Last administered on 08/07/16 05: 55; Admin Dose 40 MG; Start 08/04/16 at 06:00 Insulin Aspart (Novolog Insulin Pen) (Adult SC Insulin - Mild Algorithm)... Q6 SC Last administered on 08/06/16 19:53; Admin Dose 1 UNIT; Start 08/03/16 at 18 :00 Hydralazine HCl (Apresoline) 10 mg Q12 PO Last administered on 08/06/16 09:47; Admin Dose 10 MG; Start 08/05/16 at 11:00 Fluoxetine HCl (Prozac) 40 mg BID PO Last administered on 08/07/16 08:38; Admin Dose 40 MG; Start 08/05/16 at 21:00 DEXTER ZAMORANO Aug 07, 2016 15:47
--- NOTE | 2016-08-07 17:50 | PN ---
Date/Time of Note Date/Time of Note DATE: 08/07/16 TIME: 17:48 Assessment/Plan VTE Prophylaxis VTE Prophylaxis Intervention: other Lines/Catheters IV Catheter Type (from Nrs): Saline Lock Urinary Cath still in place: Yes Reason Cath still needed: other (indicate) Assessment/Plan Chief Complaint/Hosp Course IMPRESSION: 1. Cardiac arrhythmia, status post ventricular tachycardia. 2. Hypertension. 3. Hyperkalemia.better 4. Chronic kidney disease. 5. Electrolyte imbalance. 6. Ascites.mild 7. Drug abuse. 8. Systolic heart failure. 9 gi bleed 10 drug abuse 11lactic acidosis better 12 sirs 13 abn lft plan lasix per gi labs am NEG lexiscan Problems: Subjective 24 Hr Interval Summary Subjective hx not possible: other (WEAKNESS) Respiratory: no complaints Cardiovascular: no complaints Exam/Review of Systems Vital Signs Vitals Vital Signs Date Time Temp Pulse Resp B/P Pulse Ox O2 Delivery O2 Flow Rate FiO2 08/07/16 16:07 77 08/07/16 15:23 2.0 08/07/16 11:23 97.9 19 81/56 91 08/07/16 08:05 Nasal Cannula Intake and Output 08/06/16 08/06/16 08/07/16 15:00 23:00 07:00 Intake Total 250 ml 50 ml 450 ml Output Total 275 ml 1050 ml Balance -25 ml 50 ml -600 ml Exam Respiratory: clear to auscultation Cardiovascular: regular rate and rhythm Gastrointestinal: ascites (+), soft Extremities: edema (LESS) Results Result Diagram: 08/07/16 0610 08/07/16 0610 Results 24 hrs Laboratory Tests Test 08/06/16 19:20 08/06/16 21:26 08/07/16 05:52 08/07/16 06:10 Bedside Glucose 146 140 119 Alanine Aminotransferase (ALT/SGPT) 379 H Albumin 2.6 L Albumin/Globulin Ratio 0.76 Alkaline Phosphatase 76 Anion Gap 15 Aspartate Amino Transf (AST/SGOT) 87 #H Basophils # 0.0 Basophils % 0.1 Blood Urea Nitrogen 47 H Calcium Level 8.1 L Carbon Dioxide Level 27 Chloride Level 100 Creatinine 1.06 Direct Bilirubin 0.40 H Eosinophils # 0.0 Eosinophils % 0.2 Globulin 3.40 H Glucose Level 110 Hematocrit 40.1 L Hemoglobin 13.0 L Indirect Bilirubin 0.8 Lymphocytes # 1.0 Lymphocytes % 9.7 L Mean Corpuscular Hemoglobin 26.9 L Mean Corpuscular Hemoglobin Concent 32.4 Mean Corpuscular Volume 83.0 Mean Platelet Volume 11.6 H Monocytes # 0.9 Monocytes % 8.3 Neutrophils # 8.2 H Neutrophils % 79.8 H Nucleated Red Blood Cells # 0.2 H Nucleated Red Blood Cells % 1.5 H Platelet Count 110 L Potassium Level 3.5 Red Blood Count 4.83 Red Cell Distribution Width 21.0 H Sodium Level 138 Total Bilirubin 1.2 Total Protein 6.0 L White Blood Count 10.3 Test 08/07/16 07:30 08/07/16 12:34 08/07/16 13:02 Bedside Glucose 85 129 Lab Scanned Report REFERENCE LAB Medications Medications Current Medications Aspirin (Aspirin) 81 mg DAILY PO Last administered on 08/02/16 09:00; Admin Dose 81 MG; Start 08/02/16 at 09:00; Status Future Hold Carvedilol (Coreg) 3.125 mg BID PO Last administered on 08/07/16 08:44; Admin Dose 3.125 MG; Start 08/02/16 at 09:00 Insulin Glargine (Lantus) 12 unit QHS SC Last administered on 08/06/16 21:54; Admin Dose 12 UNIT; Start 08/02/16 at 21:00 Naloxone HCl (Narcan) 0.4 mg Q3M PRN IV DECREASED REPIRATORY RATE; Start at 09:00 Ondansetron HCl (Zofran Inj) 4 mg Q6H PRN IV NAUSEA AND/OR VOMITING Last administered on 08/04/16 02:34; Admin Dose 4 MG; Start 08/02/16 at 09:00 Nitroglycerin (Nitroglycerin (Sl Tab) 0.4 Mg) 1 tab Q5M PRN SL CHEST PAIN; Start 08/02/16 at 09:00 Acetaminophen (Tylenol Tab) 650 mg Q6H PRN PO PAIN LEVEL 1-3 OR FEVER; Start at 09:00 Zolpidem Tartrate (Ambien) 5 mg QHS PRN PO INSOMNIA; Start 08/02/16 at 21:00 Docusate Sodium (Colace) 100 mg Q12H PRN PO CONSTIPATION; Start 08/02/16 at 09: 00 Magnesium Hydroxide (Milk Of Mag) 30 ml DAILY PRN PO CONSTIPATION; Start at 09:00 Bisacodyl (Dulcolax) 5 mg DAILY PRN PO CONSTIPATION; Start 08/02/16 at 09:00 Miscellaneous Information 1 ea NOTE XX ; Start 08/02/16 at 10:00 Glucose (Glutose) 15 gm Q15M PRN PO DECREASED GLUCOSE; Start 08/02/16 at 10:00 Glucose (Glutose) 22.5 gm Q15M PRN PO DECREASED GLUCOSE; Start 08/02/16 at 10: 00 Dextrose (D50w Syringe) 25 ml Q15M PRN IV DECREASED GLUCOSE; Start 08/02/16 at 10:00 Dextrose (D50w Syringe) 50 ml Q15M PRN IV DECREASED GLUCOSE Last administered on 08/02/16 14:11; Admin Dose 50 ML; Start 08/02/16 at 10:00 Glucagon (Glucagen) 1 mg Q15M PRN IM DECREASED GLUCOSE; Start 08/02/16 at 10:00 Glucose 15 gm 15 gm Q15M PRN BUCCAL DECREASED GLUCOSE; Start 08/02/16 at 10:00 Ceftriaxone Sodium (Rocephin) 50 ml @ 100 mls/hr Q24H IVPB Last administered on 08/06/16 19:22; Admin Dose 100 MLS/HR; Start 08/03/16 at 17:00 Pantoprazole (Protonix Iv) 40 mg DAILY@06 IV Last administered on 08/07/16 05: 55; Admin Dose 40 MG; Start 08/04/16 at 06:00 Insulin Aspart (Novolog Insulin Pen) (Adult SC Insulin - Mild Algorithm)... Q6 SC Last administered on 08/06/16 19:53; Admin Dose 1 UNIT; Start 08/03/16 at 18 :00 Hydralazine HCl (Apresoline) 10 mg Q12 PO Last administered on 08/06/16 09:47; Admin Dose 10 MG; Start 08/05/16 at 11:00 Fluoxetine HCl (Prozac) 40 mg BID PO Last administered on 08/07/16 08:38; Admin Dose 40 MG; Start 08/05/16 at 21:00 ANDREAS FRANCISCO MD Aug 07, 2016 17:50
[2016-08-07] MEDS: CEFTRIAXONE 1 GM/50 ML (PMX) 50 ML IVPB SCH (18:22)
[2016-08-07] MEDS: INSULIN GLARGINE [LANtus] 3 ML PEN SC SCH (22:27)
[2016-08-08] VITALS (12 sets, daily range): BP systolic 86–95; BP diastolic 51–66; PULSE 72–80; RESP 17–19
[2016-08-08] MEDS: Insulin NOVOLOG SS MILD Algorithm (NPO/TPN/ENTERAL FEEDS) SC SCH ×2 (05:41)
[2016-08-08] MEDS: PANTOPRAZOLE 40 MG INJ IV SCH (05:42)
[2016-08-08] MEDS: INSULIN ASPART [NOVOLOG] 3 ML PEN SC SCH ×4 (07:55→20:35)
[2016-08-08] MEDS: FLUOXETINE 20 MG CAP PO SCH ×2 (08:40→20:37)
--- NOTE | 2016-08-08 15:26 | CONS ---
Date/Time of Note Date/Time of Note DATE: 08/08/16 TIME: 15:25 Assessment/Plan Assessment/Plan Chief Complaint/Hosp Course IMPRESSION: 1. Gastroparesis with large output, 2500 mL coffee-ground color. Hematocrit is stable.resolved 2. Positive stool guaiac. 3. Ischemic liver.liver function improving 4. Diabetes mellitus. 5. Ascites. 6. Electrolyte imbalance. 7. Ischemic cardiomyopathy with ejection fraction for 25%. 8. Pulmonary hypertension. 9.renal failure,steadily improving Plan iv hydration PPI monitor H&H pt.declined EGD Problems: Consultation Date/Type/Reason Admit Date/Time Aug 02, 2016 at 08:32 Initial Consult Date Type of Consultation: GI Referring Provider: ANDREAS FRANCISCO MD 24 HR Interval Summary Free Text/Dictation No n/v, no melena. Exam/Review of Systems Vital Signs Vitals Vital Signs Date Time Temp Pulse Resp B/P Pulse Ox O2 Delivery O2 Flow Rate FiO2 08/08/16 15:23 98.3 77 18 90/59 94 08/07/16 15:23 2.0 08/07/16 08:05 Nasal Cannula Intake and Output 08/07/16 08/07/16 08/08/16 15:00 23:00 07:00 Intake Total 750 ml 800 ml Output Total 650 ml 750 ml Balance 100 ml 50 ml Exam Constitutional: alert, oriented, well developed Psych: nl mood/affect, no complaints Head: atraumatic, normocephalic Eyes: EOMI, nl conjunctiva, nl lids, nl sclera ENMT: mucosa pink and moist, nl external ears & nose, nl lips & teeth, nl nasal mucosa & septum Neck: non-tender, supple Respiratory: clear to auscultation, normal air movement Cardiovascular: nl pulses, regular rate and rhythm Gastrointestinal: bowel sounds, non-tender, soft Results Result Diagram: 08/07/16 0610 08/07/16 0610 Results 24 hrs Laboratory Tests Test 08/07/16 18:20 08/07/16 20:09 08/08/16 00:34 08/08/16 05:41 Bedside Glucose 107 143 158 135 Test 08/08/16 08:22 08/08/16 09:53 08/08/16 12:57 Bedside Glucose 122 123 Hemoglobin A1c 6.4 H Medications Medications Current Medications Aspirin (Aspirin) 81 mg DAILY PO Last administered on 08/02/16 09:00; Admin Dose 81 MG; Start 08/02/16 at 09:00; Status Future Hold Carvedilol (Coreg) 3.125 mg BID PO Last administered on 08/07/16 08:44; Admin Dose 3.125 MG; Start 08/02/16 at 09:00 Insulin Glargine (Lantus) 12 unit QHS SC Last administered on 08/07/16 22:27; Admin Dose 12 UNIT; Start 08/02/16 at 21:00 Naloxone HCl (Narcan) 0.4 mg Q3M PRN IV DECREASED REPIRATORY RATE; Start at 09:00 Ondansetron HCl (Zofran Inj) 4 mg Q6H PRN IV NAUSEA AND/OR VOMITING Last administered on 08/04/16 02:34; Admin Dose 4 MG; Start 08/02/16 at 09:00 Nitroglycerin (Nitroglycerin (Sl Tab) 0.4 Mg) 1 tab Q5M PRN SL CHEST PAIN; Start 08/02/16 at 09:00 Acetaminophen (Tylenol Tab) 650 mg Q6H PRN PO PAIN LEVEL 1-3 OR FEVER; Start at 09:00 Zolpidem Tartrate (Ambien) 5 mg QHS PRN PO INSOMNIA; Start 08/02/16 at 21:00 Docusate Sodium (Colace) 100 mg Q12H PRN PO CONSTIPATION; Start 08/02/16 at 09: 00 Magnesium Hydroxide (Milk Of Mag) 30 ml DAILY PRN PO CONSTIPATION; Start at 09:00 Bisacodyl (Dulcolax) 5 mg DAILY PRN PO CONSTIPATION; Start 08/02/16 at 09:00 Miscellaneous Information 1 ea NOTE XX ; Start 08/02/16 at 10:00 Glucose (Glutose) 15 gm Q15M PRN PO DECREASED GLUCOSE; Start 08/02/16 at 10:00 Glucose (Glutose) 22.5 gm Q15M PRN PO DECREASED GLUCOSE; Start 08/02/16 at 10: 00 Dextrose (D50w Syringe) 25 ml Q15M PRN IV DECREASED GLUCOSE; Start 08/02/16 at 10:00 Dextrose (D50w Syringe) 50 ml Q15M PRN IV DECREASED GLUCOSE Last administered on 08/02/16 14:11; Admin Dose 50 ML; Start 08/02/16 at 10:00 Glucagon (Glucagen) 1 mg Q15M PRN IM DECREASED GLUCOSE; Start 08/02/16 at 10:00 Glucose 15 gm 15 gm Q15M PRN BUCCAL DECREASED GLUCOSE; Start 08/02/16 at 10:00 Ceftriaxone Sodium (Rocephin) 50 ml @ 100 mls/hr Q24H IVPB Last administered on 08/07/16 18:22; Admin Dose 100 MLS/HR; Start 08/03/16 at 17:00 Pantoprazole (Protonix Iv) 40 mg DAILY@06 IV Last administered on 08/08/16 05: 42; Admin Dose 40 MG; Start 08/04/16 at 06:00 Hydralazine HCl (Apresoline) 10 mg Q12 PO Last administered on 08/06/16 09:47; Admin Dose 10 MG; Start 08/05/16 at 11:00 Fluoxetine HCl (Prozac) 40 mg BID PO Last administered on 08/08/16 08:40; Admin Dose 40 MG; Start 08/05/16 at 21:00 Diagnostic Test (Pha) (Accucheck) 1 ea 02 XX ; Start 08/09/16 at 02:00 NGOC BARTON MD Aug 08, 2016 15:26
--- NOTE | 2016-08-08 15:59 | CONS ---
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% likely from Drug abuse CHF Ventricular Tachycardia Renal failure Diabetes Hypertension Coagulopathy No episodes of Ventricular Tachycardia Continue Coreg started on lisinopril Discontinue Hydralazine Continue Anabiotics Continue Insulin Consultation Date/Type/Reason Admit Date/Time Aug 02, 2016 at 08:32 Constitutional: improved, no complaints Respiratory: no complaints Cardiovascular: no complaints Gastrointestinal: no complaints Psychological: no complaints Past Surgical History Past Surgical Hx: other Social History Smoking Status: Former smoker Exam/Review of Systems Vital Signs Vitals Vital Signs Date Time Temp Pulse Resp B/P Pulse Ox O2 Delivery O2 Flow Rate FiO2 08/08/16 15:23 98.3 77 18 90/59 94 08/07/16 15:23 2.0 08/07/16 08:05 Nasal Cannula Intake and Output 08/07/16 08/07/16 08/08/16 15:00 23:00 07:00 Intake Total 750 ml 800 ml Output Total 650 ml 750 ml Balance 100 ml 50 ml Exam Head: atraumatic, normocephalic Neck: non-tender, supple Respiratory: clear to auscultation Cardiovascular: regular rate and rhythm Gastrointestinal: nl liver, spleen, non-tender, soft Extremities: normal pulses Results Result Diagram: 08/07/16 0610 08/07/16 0610 Results 24 hrs Laboratory Tests Test 08/07/16 18:20 08/07/16 20:09 08/08/16 00:34 08/08/16 05:41 Bedside Glucose 107 143 158 135 Test 08/08/16 08:22 08/08/16 09:53 08/08/16 12:57 Bedside Glucose 122 123 Hemoglobin A1c 6.4 H Medications Medications Current Medications Aspirin (Aspirin) 81 mg DAILY PO Last administered on 08/02/16 09:00; Admin Dose 81 MG; Start 08/02/16 at 09:00; Status Future Hold Carvedilol (Coreg) 3.125 mg BID PO Last administered on 08/07/16 08:44; Admin Dose 3.125 MG; Start 08/02/16 at 09:00 Insulin Glargine (Lantus) 12 unit QHS SC Last administered on 08/07/16 22:27; Admin Dose 12 UNIT; Start 08/02/16 at 21:00 Naloxone HCl (Narcan) 0.4 mg Q3M PRN IV DECREASED REPIRATORY RATE; Start at 09:00 Ondansetron HCl (Zofran Inj) 4 mg Q6H PRN IV NAUSEA AND/OR VOMITING Last administered on 08/04/16 02:34; Admin Dose 4 MG; Start 08/02/16 at 09:00 Nitroglycerin (Nitroglycerin (Sl Tab) 0.4 Mg) 1 tab Q5M PRN SL CHEST PAIN; Start 08/02/16 at 09:00 Acetaminophen (Tylenol Tab) 650 mg Q6H PRN PO PAIN LEVEL 1-3 OR FEVER; Start at 09:00 Zolpidem Tartrate (Ambien) 5 mg QHS PRN PO INSOMNIA; Start 08/02/16 at 21:00 Docusate Sodium (Colace) 100 mg Q12H PRN PO CONSTIPATION; Start 08/02/16 at 09: 00 Magnesium Hydroxide (Milk Of Mag) 30 ml DAILY PRN PO CONSTIPATION; Start at 09:00 Bisacodyl (Dulcolax) 5 mg DAILY PRN PO CONSTIPATION; Start 08/02/16 at 09:00 Miscellaneous Information 1 ea NOTE XX ; Start 08/02/16 at 10:00 Glucose (Glutose) 15 gm Q15M PRN PO DECREASED GLUCOSE; Start 08/02/16 at 10:00 Glucose (Glutose) 22.5 gm Q15M PRN PO DECREASED GLUCOSE; Start 08/02/16 at 10: 00 Dextrose (D50w Syringe) 25 ml Q15M PRN IV DECREASED GLUCOSE; Start 08/02/16 at 10:00 Dextrose (D50w Syringe) 50 ml Q15M PRN IV DECREASED GLUCOSE Last administered on 08/02/16 14:11; Admin Dose 50 ML; Start 08/02/16 at 10:00 Glucagon (Glucagen) 1 mg Q15M PRN IM DECREASED GLUCOSE; Start 08/02/16 at 10:00 Glucose 15 gm 15 gm Q15M PRN BUCCAL DECREASED GLUCOSE; Start 08/02/16 at 10:00 Ceftriaxone Sodium (Rocephin) 50 ml @ 100 mls/hr Q24H IVPB Last administered on 08/07/16 18:22; Admin Dose 100 MLS/HR; Start 08/03/16 at 17:00 Pantoprazole (Protonix Iv) 40 mg DAILY@06 IV Last administered on 08/08/16 05: 42; Admin Dose 40 MG; Start 08/04/16 at 06:00 Hydralazine HCl (Apresoline) 10 mg Q12 PO Last administered on 08/06/16 09:47; Admin Dose 10 MG; Start 08/05/16 at 11:00 Fluoxetine HCl (Prozac) 40 mg BID PO Last administered on 08/08/16 08:40; Admin Dose 40 MG; Start 08/05/16 at 21:00 Diagnostic Test (Pha) (Accucheck) 1 XX ; Start 08/09/16 at 02:00 JUDIT MEZA M.D. Aug 08, 2016 15:58
[2016-08-08] MEDS: LISINOPRIL 20 MG TAB PO SCH (16:00)
[2016-08-08] MEDS ORDERED: SOD CHLORIDE 0.9% 250 ML IV ONE (16:30)
[2016-08-08] MEDS: CEFTRIAXONE 1 GM/50 ML (PMX) 50 ML IVPB SCH (17:00)
--- NOTE | 2016-08-08 17:01 | PN ---
Date/Time of Note Date/Time of Note DATE: 08/08/16 TIME: 17:00 Assessment/Plan VTE Prophylaxis VTE Prophylaxis Intervention: other Lines/Catheters IV Catheter Type (from Nrs): Saline Lock Urinary Cath still in place: Yes Reason Cath still needed: other (indicate) Assessment/Plan Chief Complaint/Hosp Course IMPRESSION: 1. Cardiac arrhythmia, status post ventricular tachycardia. 2. Hypertension. 3. Hyperkalemia.better 4. Chronic kidney disease. 5. Electrolyte imbalance. 6. Ascites.mild 7. Drug abuse. 8. Systolic heart failure. 9 gi bleed 10 drug abuse 11lactic acidosis better 12 sirs 13 abn lft plan lasix per gi labs am NEG lexiscan PLACEMENT ISSUE Problems: Subjective 24 Hr Interval Summary Respiratory: no complaints Cardiovascular: no complaints Exam/Review of Systems Vital Signs Vitals Vital Signs Date Time Temp Pulse Resp B/P Pulse Ox O2 Delivery O2 Flow Rate FiO2 08/08/16 16:04 72 08/08/16 15:23 98.3 18 90/59 94 08/07/16 15:23 2.0 08/07/16 08:05 Nasal Cannula Intake and Output 08/07/16 08/07/16 08/08/16 15:00 23:00 07:00 Intake Total 750 ml 800 ml Output Total 650 ml 750 ml Balance 100 ml 50 ml Exam Neck: supple Respiratory: clear to auscultation Cardiovascular: regular rate and rhythm Gastrointestinal: bowel sounds (+), soft Extremities: edema (+) Results Result Diagram: 08/07/16 0610 08/07/16 0610 Results 24 hrs Laboratory Tests Test 08/07/16 18:20 08/07/16 20:09 08/08/16 00:34 08/08/16 05:41 Bedside Glucose 107 143 158 135 Test 08/08/16 08:22 08/08/16 09:53 08/08/16 12:57 Bedside Glucose 122 123 Hemoglobin A1c 6.4 H Medications Medications Current Medications Aspirin (Aspirin) 81 mg DAILY PO Last administered on 08/02/16 09:00; Admin Dose 81 MG; Start 08/02/16 at 09:00; Status Future Hold Carvedilol (Coreg) 3.125 mg BID PO Last administered on 08/07/16 08:44; Admin Dose 3.125 MG; Start 08/02/16 at 09:00 Insulin Glargine (Lantus) 12 unit QHS SC Last administered on 08/07/16 22:27; Admin Dose 12 UNIT; Start 08/02/16 at 21:00 Naloxone HCl (Narcan) 0.4 mg Q3M PRN IV DECREASED REPIRATORY RATE; Start at 09:00 Ondansetron HCl (Zofran Inj) 4 mg Q6H PRN IV NAUSEA AND/OR VOMITING Last administered on 08/04/16 02:34; Admin Dose 4 MG; Start 08/02/16 at 09:00 Nitroglycerin (Nitroglycerin (Sl Tab) 0.4 Mg) 1 tab Q5M PRN SL CHEST PAIN; Start 08/02/16 at 09:00 Acetaminophen (Tylenol Tab) 650 mg Q6H PRN PO PAIN LEVEL 1-3 OR FEVER; Start at 09:00 Zolpidem Tartrate (Ambien) 5 mg QHS PRN PO INSOMNIA; Start 08/02/16 at 21:00 Docusate Sodium (Colace) 100 mg Q12H PRN PO CONSTIPATION; Start 08/02/16 at 09: 00 Magnesium Hydroxide (Milk Of Mag) 30 ml DAILY PRN PO CONSTIPATION; Start at 09:00 Bisacodyl (Dulcolax) 5 mg DAILY PRN PO CONSTIPATION; Start 08/02/16 at 09:00 Miscellaneous Information 1 ea NOTE XX ; Start 08/02/16 at 10:00 Glucose (Glutose) 15 gm Q15M PRN PO DECREASED GLUCOSE; Start 08/02/16 at 10:00 Glucose (Glutose) 22.5 gm Q15M PRN PO DECREASED GLUCOSE; Start 08/02/16 at 10: 00 Dextrose (D50w Syringe) 25 ml Q15M PRN IV DECREASED GLUCOSE; Start 08/02/16 at 10:00 Dextrose (D50w Syringe) 50 ml Q15M PRN IV DECREASED GLUCOSE Last administered on 08/02/16 14:11; Admin Dose 50 ML; Start 08/02/16 at 10:00 Glucagon (Glucagen) 1 mg Q15M PRN IM DECREASED GLUCOSE; Start 08/02/16 at 10:00 Glucose 15 gm 15 gm Q15M PRN BUCCAL DECREASED GLUCOSE; Start 08/02/16 at 10:00 Ceftriaxone Sodium (Rocephin) 50 ml @ 100 mls/hr Q24H IVPB Last administered on 08/07/16 18:22; Admin Dose 100 MLS/HR; Start 08/03/16 at 17:00 Pantoprazole (Protonix Iv) 40 mg DAILY@06 IV Last administered on 08/08/16 05: 42; Admin Dose 40 MG; Start 08/04/16 at 06:00 Fluoxetine HCl (Prozac) 40 mg BID PO Last administered on 08/08/16 08:40; Admin Dose 40 MG; Start 08/05/16 at 21:00 Diagnostic Test (Pha) (Accucheck) 1 ea 02 XX ; Start 08/09/16 at 02:00 Lisinopril 20 mg 20 mg DAILY PO ; Start 08/08/16 at 16:00 Sodium Chloride (NS) 250 ml @ 250 mls/hr Q1H ONCE IV Last administered on 16:32; Admin Dose 250 MLS/HR; Start 08/08/16 at 16:30; Stop 08/08/16 at 17:29 ANDREAS FRANCISCO MD Aug 08, 2016 17:01
[2016-08-08] MEDS: INSULIN GLARGINE [LANtus] 3 ML PEN SC SCH (20:38)
[2016-08-09] VITALS (10 sets, daily range): BP systolic 88–97; BP diastolic 53–73; PULSE 77–89; RESP 16–19
[2016-08-09] MEDS: ACCUCHECK XX SCH (00:28)
[2016-08-09] MEDS: PANTOPRAZOLE 40 MG INJ IV SCH (06:12)
[2016-08-09] MEDS: INSULIN ASPART [NOVOLOG] 3 ML PEN SC SCH ×4 (07:55→20:33)
[2016-08-09] MEDS: FLUOXETINE 20 MG CAP PO SCH ×2 (08:40→20:26)
[2016-08-09] MEDS: LISINOPRIL 20 MG TAB PO SCH (08:41)
--- NOTE | 2016-08-09 15:07 | CONS ---
Date/Time of Note Date/Time of Note DATE: 08/09/16 TIME: 15:00 Assessment/Plan Assessment/Plan Additional Assessment/Plan Non ischemic cardiomyopathy with EF 15% likely from Drug abuse CHF Ventricular Tachycardia Renal failure Diabetes Hypertension Coagulopathy No episodes of Ventricular Tachycardia Continue Coreg Continue lisinopril Discontinued Hydralazine Continue Antibiotics Continue Insulin Consultation Date/Type/Reason Admit Date/Time Aug 02, 2016 at 08:32 Initial Consult Date Type of Consultation: GI Referring Provider: ANDERAS FRANCISCO MD Exam/Review of Systems Vital Signs Vitals Vital Signs Date Time Temp Pulse Resp B/P Pulse Ox O2 Delivery O2 Flow Rate FiO2 08/09/16 12:11 86 08/09/16 11:34 98.1 18 97/68 96 08/09/16 06:10 Room Air 08/07/16 15:23 2.0 Intake and Output 08/08/16 08/08/16 08/09/16 15:00 23:00 07:00 Intake Total 800 ml 250 ml Output Total 650 ml 1200 ml Balance 150 ml -950 ml Exam Head: atraumatic, normocephalic Neck: non-tender, supple Respiratory: clear to auscultation Cardiovascular: regular rate and rhythm Gastrointestinal: nl liver, spleen, non-tender, soft Extremities: normal pulses Results Result Diagram: 08/07/16 0610 08/07/16 0610 Results 24 hrs Laboratory Tests Test 08/08/16 17:13 08/08/16 20:19 08/09/16 08:07 08/09/16 12:14 Bedside Glucose 104 84 103 104 Medications Medications Current Medications Aspirin (Aspirin) 81 mg DAILY PO Last administered on 08/02/16 09:00; Admin Dose 81 MG; Start 08/02/16 at 09:00; Status Future Hold Carvedilol (Coreg) 3.125 mg BID PO Last administered on 08/07/16 08:44; Admin Dose 3.125 MG; Start 08/02/16 at 09:00 Insulin Glargine (Lantus) 12 unit QHS SC Last administered on 08/08/16 20:38; Admin Dose 12 UNIT; Start 08/02/16 at 21:00 Naloxone HCl (Narcan) 0.4 mg Q3M PRN IV DECREASED REPIRATORY RATE; Start at 09:00 Ondansetron HCl (Zofran Inj) 4 mg Q6H PRN IV NAUSEA AND/OR VOMITING Last administered on 08/04/16 02:34; Admin Dose 4 MG; Start 08/02/16 at 09:00 Nitroglycerin (Nitroglycerin (Sl Tab) 0.4 Mg) 1 tab Q5M PRN SL CHEST PAIN; Start 08/02/16 at 09:00 Acetaminophen (Tylenol Tab) 650 mg Q6H PRN PO PAIN LEVEL 1-3 OR FEVER; Start at 09:00 Zolpidem Tartrate (Ambien) 5 mg QHS PRN PO INSOMNIA; Start 08/02/16 at 21:00 Docusate Sodium (Colace) 100 mg Q12H PRN PO CONSTIPATION; Start 08/02/16 at 09: 00 Magnesium Hydroxide (Milk Of Mag) 30 ml DAILY PRN PO CONSTIPATION; Start at 09:00 Bisacodyl (Dulcolax) 5 mg DAILY PRN PO CONSTIPATION; Start 08/02/16 at 09:00 Miscellaneous Information 1 ea NOTE XX ; Start 08/02/16 at 10:00 Glucose (Glutose) 15 gm Q15M PRN PO DECREASED GLUCOSE; Start 08/02/16 at 10:00 Glucose (Glutose) 22.5 gm Q15M PRN PO DECREASED GLUCOSE; Start 08/02/16 at 10: 00 Dextrose (D50w Syringe) 25 ml Q15M PRN IV DECREASED GLUCOSE; Start 08/02/16 at 10:00 Dextrose (D50w Syringe) 50 ml Q15M PRN IV DECREASED GLUCOSE Last administered on 08/02/16 14:11; Admin Dose 50 ML; Start 08/02/16 at 10:00 Glucagon (Glucagen) 1 mg Q15M PRN IM DECREASED GLUCOSE; Start 08/02/16 at 10:00 Glucose 15 gm 15 gm Q15M PRN BUCCAL DECREASED GLUCOSE; Start 08/02/16 at 10:00 Ceftriaxone Sodium (Rocephin) 50 ml @ 100 mls/hr Q24H IVPB Last administered on 08/08/16 17:00; Admin Dose 100 MLS/HR; Start 08/03/16 at 17:00 Pantoprazole (Protonix Iv) 40 mg DAILY@06 IV Last administered on 3/5/17at 06: 12; Admin Dose 40 MG; Start 08/04/16 at 06:00 Fluoxetine HCl (Prozac) 40 mg BID PO Last administered on 08/09/16t 08:40; Admin Dose 40 MG; Start 08/05/16 at 21:00 Diagnostic Test (Pha) (Accucheck) 1 XX ; Start 08/09/16 at 02:00 Lisinopril (Zestril) 20 mg DAILY PO ; Start 08/08/16 at 16:00 JUDIT MEZA M.D. Aug 09, 2016 15:06
[2016-08-09] MEDS: CEFTRIAXONE 1 GM/50 ML (PMX) 50 ML IVPB SCH (17:00)
--- NOTE | 2016-08-09 17:16 | PDOCDIS ---
Discharge Instructions CONDITION Patient Condition: Stable HOME CARE INSTRUCTIONS: Special Diet: 2G Na ACTIVITY: Activity Restrictions: Slowly Increase Activity FOLLOW UP/APPOINTMENTS Appointments F/U OWN PCP [address] ZAMORANO 1 WKS ANDREAS FRANCISCO MD Aug 09, 2016 17:16
[2016-08-09] MEDS ORDERED: NIT4 SL (17:18)
--- NOTE | 2016-08-09 17:21 | PN ---
Date/Time of Note Date/Time of Note DATE: 08/09/16 TIME: 17:19 Assessment/Plan VTE Prophylaxis VTE Prophylaxis Intervention: other Lines/Catheters [facility] Saline Lock Urinary Cath still in place: Yes Reason Cath still needed: skin wounds contaminated by urine Assessment/Plan Chief Complaint/Hosp Course IMPRESSION: 1. Cardiac arrhythmia, status post ventricular tachycardia. 2. Hypertension. 3. Hyperkalemia.better 4. Chronic kidney disease. 5. Electrolyte imbalance. 6. Ascites.mild 7. Drug abuse. 8. Systolic heart failure. 9 gi bleed 10 drug abuse 11lactic acidosis better 12 sirs 13 abn lft plan lasix per gi NEG lexiscan HOME Problems: Subjective 24 Hr Interval Summary Cardiovascular: no complaints Gastrointestinal: no complaints Genitourinary: no complaints Exam/Review of Systems Vital Signs Vitals Vital Signs Date Time Temp Pulse Resp B/P Pulse Ox O2 Delivery O2 Flow Rate FiO2 08/09/16 16:28 96 21 08/09/16 16:10 86 08/09/16 15:31 98.1 19 91/73 08/09/16 06:10 Room Air 08/07/16 15:23 2.0 Intake and Output 08/08/16 08/08/16 08/09/16 15:00 23:00 07:00 Intake Total 800 ml 250 ml Output Total 650 ml 1200 ml Balance 150 ml -950 ml Exam Neck: supple Respiratory: clear to auscultation Cardiovascular: regular rate and rhythm Gastrointestinal: nl liver, spleen, soft Results Result Diagram: 08/07/16 0610 08/07/16 0610 Results 24 hrs Laboratory Tests Test 08/08/16 20:19 08/09/16 08:07 08/09/16 12:14 Bedside Glucose 84 103 104 Medications Medications Current Medications Aspirin (Aspirin) 81 mg DAILY PO Last administered on 08/02/16 09:00; Admin Dose 81 MG; Start 08/02/16 at 09:00; Status Future Hold Carvedilol (Coreg) 3.125 mg BID PO Last administered on 08/07/16 08:44; Admin Dose 3.125 MG; Start 08/02/16 at 09:00 Insulin Glargine (Lantus) 12 unit QHS SC Last administered on 08/08/16 20:38; Admin Dose 12 UNIT; Start 08/02/16 at 21:00 Naloxone HCl (Narcan) 0.4 mg Q3M PRN IV DECREASED REPIRATORY RATE; Start at 09:00 Ondansetron HCl (Zofran Inj) 4 mg Q6H PRN IV NAUSEA AND/OR VOMITING Last administered on 08/04/16 02:34; Admin Dose 4 MG; Start 08/02/16 at 09:00 Nitroglycerin (Nitroglycerin (Sl Tab) 0.4 Mg) 1 tab Q5M PRN SL CHEST PAIN; Start 08/02/16 at 09:00 Acetaminophen (Tylenol Tab) 650 mg Q6H PRN PO PAIN LEVEL 1-3 OR FEVER; Start at 09:00 Zolpidem Tartrate (Ambien) 5 mg QHS PRN PO INSOMNIA; Start 08/02/16 at 21:00 Docusate Sodium (Colace) 100 mg Q12H PRN PO CONSTIPATION; Start 08/02/16 at 09: 00 Magnesium Hydroxide (Milk Of Mag) 30 ml DAILY PRN PO CONSTIPATION; Start at 09:00 Bisacodyl (Dulcolax) 5 mg DAILY PRN PO CONSTIPATION; Start 08/02/16 at 09:00 Miscellaneous Information 1 ea NOTE XX ; Start 08/02/16 at 10:00 Glucose (Glutose) 15 gm Q15M PRN PO DECREASED GLUCOSE; Start 08/02/16 at 10:00 Glucose (Glutose) 22.5 gm Q15M PRN PO DECREASED GLUCOSE; Start 08/02/16 at 10: 00 Dextrose (D50w Syringe) 25 ml Q15M PRN IV DECREASED GLUCOSE; Start 08/02/16 at 10:00 Dextrose (D50w Syringe) 50 ml Q15M PRN IV DECREASED GLUCOSE Last administered on 08/02/16 14:11; Admin Dose 50 ML; Start 08/02/16 at 10:00 Glucagon (Glucagen) 1 mg Q15M PRN IM DECREASED GLUCOSE; Start 08/02/16 at 10:00 Glucose 15 gm 15 gm Q15M PRN BUCCAL DECREASED GLUCOSE; Start 08/02/16 at 10:00 Ceftriaxone Sodium (Rocephin) 50 ml @ 100 mls/hr Q24H IVPB Last administered on 08/09/16 17:00; Admin Dose 100 MLS/HR; Start 08/03/16 at 17:00 Pantoprazole (Protonix Iv) 40 mg DAILY@06 IV Last administered on 08/09/16 06: 12; Admin Dose 40 MG; Start 08/04/16 at 06:00 Fluoxetine HCl (Prozac) 40 mg BID PO Last administered on 08/09/16 08:40; Admin Dose 40 MG; Start 08/05/16 at 21:00 Diagnostic Test (Pha) (Accucheck) 1 XX ; Start 08/09/16 at 02:00 Lisinopril (Zestril) 20 mg DAILY PO ; Start 08/08/16 at 16:00 ANDREAS FRANCISCO MD Aug 09, 2016 17:20
[2016-08-09] MEDS: INSULIN GLARGINE [LANtus] 3 ML PEN SC SCH (20:33)
--- NOTE | 2016-08-09 20:44 | CONS ---
Date/Time of Note Date/Time of Note DATE: 08/09/16 TIME: 20:42 Assessment/Plan Assessment/Plan Chief Complaint/Hosp Course IMPRESSION: 1. Gastroparesis with large output, 2500 mL coffee-ground color. Hematocrit is stable.resolved 2. Positive stool guaiac. 3. Ischemic liver.liver function improving 4. Diabetes mellitus. 5. Ascites. 6. Electrolyte imbalance. 7. Ischemic cardiomyopathy with ejection fraction for 25%. 8. Pulmonary hypertension. 9.renal failure,steadily improving Plan iv hydration PPI monitor H&H pt.declined EGD ok from GI perspective to dc if ok with primary and other consultants. Problems: Consultation Date/Type/Reason Admit Date/Time Aug 02, 2016 at 08:32 Type of Consultation: GI Referring Provider: ANDREAS FRANCISCO MD Exam/Review of Systems Vital Signs Vitals Vital Signs Date Time Temp Pulse Resp B/P Pulse Ox O2 Delivery O2 Flow Rate FiO2 08/09/16 16:28 96 21 08/09/16 16:10 86 08/09/16 15:31 98.1 19 91/73 08/09/16 06:10 Room Air 08/07/16 15:23 2.0 Intake and Output 08/08/16 08/08/16 08/09/16 15:00 23:00 07:00 Intake Total 800 ml 250 ml Output Total 650 ml 1200 ml Balance 150 ml -950 ml Exam Psych: nl mood/affect, no complaints Head: atraumatic, normocephalic Eyes: EOMI, nl conjunctiva, nl lids ENMT: mucosa pink and moist, nl external ears & nose, nl lips & teeth, nl nasal mucosa & septum Neck: non-tender, supple Respiratory: clear to auscultation, normal air movement Cardiovascular: nl pulses, regular rate and rhythm Gastrointestinal: bowel sounds, non-tender, soft Results Result Diagram: 08/07/16 0610 08/07/16 0610 Results 24 hrs Laboratory Tests Test 08/09/16 08:07 08/09/16 12:14 08/09/16 17:07 08/09/16 20:19 Bedside Glucose 103 104 89 79 Medications Medications Current Medications Aspirin (Aspirin) 81 mg DAILY PO Last administered on 08/02/16t 09:00; Admin Dose 81 MG; Start 08/02/16 at 09:00; Status Future Hold Carvedilol (Coreg) 3.125 mg BID PO Last administered on 08/07/16 08:44; Admin Dose 3.125 MG; Start 08/02/16 at 09:00 Insulin Glargine (Lantus) 12 unit QHS SC Last administered on 08/09/16 20:33; Admin Dose 12 UNIT; Start 08/02/16 at 21:00 Naloxone HCl (Narcan) 0.4 mg Q3M PRN IV DECREASED REPIRATORY RATE; Start at 09:00 Ondansetron HCl (Zofran Inj) 4 mg Q6H PRN IV NAUSEA AND/OR VOMITING Last administered on 08/04/16 02:34; Admin Dose 4 MG; Start 08/02/16 at 09:00 Nitroglycerin (Nitroglycerin (Sl Tab) 0.4 Mg) 1 tab Q5M PRN SL CHEST PAIN; Start 08/02/16 at 09:00 Acetaminophen (Tylenol Tab) 650 mg Q6H PRN PO PAIN LEVEL 1-3 OR FEVER; Start at 09:00 Zolpidem Tartrate (Ambien) 5 mg QHS PRN PO INSOMNIA; Start 08/02/16 at 21:00 Docusate Sodium (Colace) 100 mg Q12H PRN PO CONSTIPATION; Start 08/02/16 at 09: 00 Magnesium Hydroxide (Milk Of Mag) 30 ml DAILY PRN PO CONSTIPATION; Start at 09:00 Bisacodyl (Dulcolax) 5 mg DAILY PRN PO CONSTIPATION; Start 08/02/16 at 09:00 Miscellaneous Information 1 ea NOTE XX ; Start 08/02/16 at 10:00 Glucose (Glutose) 15 gm Q15M PRN PO DECREASED GLUCOSE; Start 08/02/16 at 10:00 Glucose (Glutose) 22.5 gm Q15M PRN PO DECREASED GLUCOSE; Start 08/02/16 at 10: 00 Dextrose (D50w Syringe) 25 ml Q15M PRN IV DECREASED GLUCOSE; Start 08/02/16 at 10:00 Dextrose (D50w Syringe) 50 ml Q15M PRN IV DECREASED GLUCOSE Last administered on 08/02/16 14:11; Admin Dose 50 ML; Start 08/02/16 at 10:00 Glucagon (Glucagen) 1 mg Q15M PRN IM DECREASED GLUCOSE; Start 08/02/16 at 10:00 Glucose 15 gm 15 gm Q15M PRN BUCCAL DECREASED GLUCOSE; Start 08/02/16 at 10:00 Ceftriaxone Sodium (Rocephin) 50 ml @ 100 mls/hr Q24H IVPB Last administered on 08/09/16 17:00; Admin Dose 100 MLS/HR; Start 08/03/16 at 17:00 Pantoprazole (Protonix Iv) 40 mg DAILY@06 IV Last administered on 08/09/16 06: 12; Admin Dose 40 MG; Start 08/04/16 at 06:00 Fluoxetine HCl (Prozac) 40 mg BID PO Last administered on 08/09/16 20:26; Admin Dose 40 MG; Start 08/05/16 at 21:00 Diagnostic Test (Pha) (Accucheck) 1 ea 02 XX ; Start 08/09/16 at 02:00 Lisinopril (Zestril) 20 mg DAILY PO ; Start 08/08/16 at 16:00 NGOC BARTON MD Aug 09, 2016 20:44
[2016-08-10] MEDS: ACCUCHECK XX SCH (02:00)
[2016-08-10] MEDS: PANTOPRAZOLE 40 MG INJ IV SCH (06:51)
[2016-08-10 07:32] VITALS: BP 98/64; RESP 18
[2016-08-10] MEDS: INSULIN ASPART [NOVOLOG] 3 ML PEN SC SCH ×4 (08:00→20:30)
[2016-08-10] MEDS: LISINOPRIL 20 MG TAB PO SCH (08:51)
[2016-08-10] MEDS: FLUOXETINE 20 MG CAP PO SCH ×2 (08:51→20:29)
[2016-08-10] MEDS: FUROSEMIDE 20 MG TAB PO SCH (13:16)
--- NOTE | 2016-08-10 14:53 | CONS ---
Date/Time of Note Date/Time of Note DATE: 08/10/16 TIME: 14:50 Assessment/Plan Assessment/Plan Chief Complaint/Hosp Course Imp: 1.Cardiomyopathy-EF 25% by echo 02/20. Lexiscan negative for ischemia EF 14% 2. positive troponin-minimal in setting of renal failure-now downtrended and negative 3.CHF-systolic acute on chronic 4.HTN 5.Substance abuse 6.Ventricular tachycardia-no recurrence 7.REnal failure-improved 8.Coagulopathy Recc: -Tele -Continue low dose BB and decrease dose of zestril to allow patient to better tolerate -Follow volume status and renal function closely -ICD eval outpatient -cessation of substance abuse -Continue daily lasix PO Problems: Consultation Date/Type/Reason Admit Date/Time Aug 02, 2016 at 08:32 Initial Consult Date 08/02/16 Type of Consultation: Cardiology Reason for Consultation VT/CMY Referring Provider: ANDREAS FRANCISCO MD Exam/Review of Systems Vital Signs Vitals Vital Signs Date Time Temp Pulse Resp B/P Pulse Ox O2 Delivery O2 Flow Rate FiO2 08/10/16 07:32 97.9 18 98/64 93 08/09/16 20:43 85 08/09/16 16:28 21 08/09/16 06:10 Room Air 08/07/16 15:23 2.0 Intake and Output 08/09/16 08/09/16 08/10/16 15:00 23:00 07:00 Intake Total 950 ml 540 ml Output Total 1000 ml 700 ml Balance -50 ml -160 ml Exam Review of Systems: CONSTITUTIONAL: No fevers, chills. PULMONARY: No sob CARDIOVASCULAR: No chest pain/palpitations GASTROINTESTINAL: No nausea/vomiting. GENITOURINARY: No hematuria/dysuria. MUSCULOSKELETAL: No myagias/arthalgias. PSYCHIATRIC: The patient denies depression. NEUROLOGIC: No weakness Constitutional: alert, oriented Psych: no complaints Head: normocephalic ENMT: mucosa pink and moist Neck: jvd (9 cm water), supple Respiratory: clear to auscultation Cardiovascular: regular rate and rhythm Gastrointestinal: non-tender, soft Musculoskeletal: muscle tone (normal) Extremities: edema (none) Neurological: lethargic Results Result Diagram: 08/07/16 0610 08/07/16 0610 Results 24 hrs Laboratory Tests Test 08/09/16 17:07 08/09/16 20:19 08/10/16 07:59 08/10/16 12:11 Bedside Glucose 89 79 72 118 Medications Medications Current Medications Aspirin (Aspirin) 81 mg DAILY PO Last administered on 08/02/16 09:00; Admin Dose 81 MG; Start 08/02/16 at 09:00; Status Future Hold Carvedilol (Coreg) 3.125 mg BID PO Last administered on 08/07/16 08:44; Admin Dose 3.125 MG; Start 08/02/16 at 09:00 Naloxone HCl (Narcan) 0.4 mg Q3M PRN IV DECREASED REPIRATORY RATE; Start at 09:00 Ondansetron HCl (Zofran Inj) 4 mg Q6H PRN IV NAUSEA AND/OR VOMITING Last administered on 08/04/16 02:34; Admin Dose 4 MG; Start 08/02/16 at 09:00 Nitroglycerin (Nitroglycerin (Sl Tab) 0.4 Mg) 1 tab Q5M PRN SL CHEST PAIN; Start 08/02/16 at 09:00 Acetaminophen (Tylenol Tab) 650 mg Q6H PRN PO PAIN LEVEL 1-3 OR FEVER; Start at 09:00 Zolpidem Tartrate (Ambien) 5 mg QHS PRN PO INSOMNIA; Start 08/02/16 at 21:00 Docusate Sodium (Colace) 100 mg Q12H PRN PO CONSTIPATION; Start 08/02/16 at 09: 00 Magnesium Hydroxide (Milk Of Mag) 30 ml DAILY PRN PO CONSTIPATION; Start at 09:00 Bisacodyl (Dulcolax) 5 mg DAILY PRN PO CONSTIPATION; Start 08/02/16 at 09:00 Miscellaneous Information 1 ea NOTE XX ; Start 08/02/16 at 10:00 Glucose (Glutose) 15 gm Q15M PRN PO DECREASED GLUCOSE; Start 08/02/16 at 10:00 Glucose (Glutose) 22.5 gm Q15M PRN PO DECREASED GLUCOSE; Start 08/02/16 at 10: 00 Dextrose (D50w Syringe) 25 ml Q15M PRN IV DECREASED GLUCOSE; Start 08/02/16 at 10:00 Dextrose (D50w Syringe) 50 ml Q15M PRN IV DECREASED GLUCOSE Last administered on 08/02/16 14:11; Admin Dose 50 ML; Start 08/02/16 at 10:00 Glucagon (Glucagen) 1 mg Q15M PRN IM DECREASED GLUCOSE; Start 08/02/16 at 10:00 Glucose 15 gm 15 gm Q15M PRN BUCCAL DECREASED GLUCOSE; Start 08/02/16 at 10:00 Ceftriaxone Sodium (Rocephin) 50 ml @ 100 mls/hr Q24H IVPB Last administered on 08/09/16 17:00; Admin Dose 100 MLS/HR; Start 08/03/16 at 17:00 Pantoprazole (Protonix Iv) 40 mg DAILY@06 IV Last administered on 08/10/16 06: 51; Admin Dose 40 MG; Start 08/04/16 at 06:00 Fluoxetine HCl (Prozac) 40 mg BID PO Last administered on 08/10/16 08:51; Admin Dose 40 MG; Start 08/05/16 at 21:00 Diagnostic Test (Pha) (Accucheck) 1 ea 02 XX ; Start 08/09/16 at 02:00 Lisinopril (Zestril) 20 mg DAILY PO ; Start 08/08/16 at 16:00 Insulin Glargine (Lantus) 8 unit QHS SC ; Start 08/10/16 at 21:00 Furosemide (Lasix) 20 mg DAILY PO Last administered on 08/10/16 13:16; Admin Dose 20 MG; Start 08/10/16 at 12:30 DEXTER ZAMORANO Aug 10, 2016 14:53
[2016-08-10] MEDS: CEFTRIAXONE 1 GM/50 ML (PMX) 50 ML IVPB SCH (17:28)
[2016-08-10 19:50] VITALS: BP 81/56; RESP 20
[2016-08-10 20:18] VITALS: BP 92/65
[2016-08-10] MEDS: INSULIN GLARGINE [LANtus] 3 ML PEN SC SCH (20:34)
--- NOTE | 2016-08-10 21:00 | PN ---
Date/Time of Note Date/Time of Note DATE: 08/10/16 TIME: 20:59 Assessment/Plan VTE Prophylaxis VTE Prophylaxis Intervention: other Lines/Catheters IV Catheter Type (from Nrs): Saline Lock Urinary Cath still in place: Yes Reason Cath still needed: other (indicate) Assessment/Plan Chief Complaint/Hosp Course IMPRESSION: 1. Cardiac arrhythmia, status post ventricular tachycardia. 2. Hypertension. 3. Hyperkalemia.better 4. Chronic kidney disease. 5. Electrolyte imbalance. 6. Ascites.mild 7. Drug abuse. 8. Systolic heart failure. 9 gi bleed 10 drug abuse 11lactic acidosis better 12 sirs 13 abn lft plan lasix per gi NEG lexiscan HOME Problems: Subjective 24 Hr Interval Summary Subjective hx not possible: other (need placement) Exam/Review of Systems Vital Signs Vitals Vital Signs Date Time Temp Pulse Resp B/P Pulse Ox O2 Delivery O2 Flow Rate FiO2 08/10/16 20:18 92/65 08/10/16 19:50 99.2 87 20 97 08/09/16 16:28 21 08/09/16 06:10 Room Air 08/07/16 15:23 2.0 Intake and Output 08/09/16 08/09/16 08/10/16 15:00 23:00 07:00 Intake Total 950 ml 540 ml Output Total 1000 ml 700 ml Balance -50 ml -160 ml Exam Respiratory: clear to auscultation Cardiovascular: regular rate and rhythm Gastrointestinal: soft Extremities: edema (tr) Results Result Diagram: 08/07/16 0610 08/07/16 0610 Results 24 hrs Laboratory Tests Test 08/10/16 07:59 08/10/16 12:11 08/10/16 17:22 08/10/16 20:08 Bedside Glucose 72 118 91 70 Medications Medications Current Medications Aspirin (Aspirin) 81 mg DAILY PO Last administered on 08/02/16 09:00; Admin Dose 81 MG; Start 08/02/16 at 09:00; Status Future Hold Carvedilol (Coreg) 3.125 mg BID PO Last administered on 08/07/16 08:44; Admin Dose 3.125 MG; Start 08/02/16 at 09:00 Naloxone HCl (Narcan) 0.4 mg Q3M PRN IV DECREASED REPIRATORY RATE; Start at 09:00 Ondansetron HCl (Zofran Inj) 4 mg Q6H PRN IV NAUSEA AND/OR VOMITING Last administered on 08/04/16 02:34; Admin Dose 4 MG; Start 08/02/16 at 09:00 Nitroglycerin (Nitroglycerin (Sl Tab) 0.4 Mg) 1 tab Q5M PRN SL CHEST PAIN; Start 08/02/16 at 09:00 Acetaminophen (Tylenol Tab) 650 mg Q6H PRN PO PAIN LEVEL 1-3 OR FEVER; Start at 09:00 Zolpidem Tartrate (Ambien) 5 mg QHS PRN PO INSOMNIA; Start 08/02/16 at 21:00 Docusate Sodium (Colace) 100 mg Q12H PRN PO CONSTIPATION; Start 08/02/16 at 09: 00 Magnesium Hydroxide (Milk Of Mag) 30 ml DAILY PRN PO CONSTIPATION; Start at 09:00 Bisacodyl (Dulcolax) 5 mg DAILY PRN PO CONSTIPATION; Start 08/02/16 at 09:00 Miscellaneous Information 1 ea NOTE XX ; Start 08/02/16 at 10:00 Glucose (Glutose) 15 gm Q15M PRN PO DECREASED GLUCOSE; Start 08/02/16 at 10:00 Glucose (Glutose) 22.5 gm Q15M PRN PO DECREASED GLUCOSE; Start 08/02/16 at 10: 00 Dextrose (D50w Syringe) 25 ml Q15M PRN IV DECREASED GLUCOSE; Start 08/02/16 at 10:00 Dextrose (D50w Syringe) 50 ml Q15M PRN IV DECREASED GLUCOSE Last administered on 08/02/16 14:11; Admin Dose 50 ML; Start 08/02/16 at 10:00 Glucagon (Glucagen) 1 mg Q15M PRN IM DECREASED GLUCOSE; Start 08/02/16 at 10:00 Glucose 15 gm 15 gm Q15M PRN BUCCAL DECREASED GLUCOSE; Start 08/02/16 at 10:00 Ceftriaxone Sodium (Rocephin) 50 ml @ 100 mls/hr Q24H IVPB Last administered on 08/10/16 17:28; Admin Dose 100 MLS/HR; Start 08/03/16 at 17:00 Pantoprazole (Protonix Iv) 40 mg DAILY@06 IV Last administered on 3/6/17at 06: 51; Admin Dose 40 MG; Start 08/04/16 at 06:00 Fluoxetine HCl (Prozac) 40 mg BID PO Last administered on 08/10/16 20:29; Admin Dose 40 MG; Start 08/05/16 at 21:00 Diagnostic Test (Pha) (Accucheck) 1 ea 02 XX ; Start 08/09/16 at 02:00 Insulin Glargine (Lantus) 8 unit QHS SC Last administered on 08/10/16 20:34; Admin Dose 8 UNIT; Start 08/10/16 at 21:00 Furosemide (Lasix) 20 mg DAILY PO Last administered on 08/10/16 13:16; Admin Dose 20 MG; Start 08/10/16 at 12:30 Lisinopril (Zestril) 2.5 mg DAILY PO ; Start 08/11/16 at 09:00 ANDREAS FRANCISCO MD Aug 10, 2016 21:00
--- NOTE | 2016-08-10 21:30 | CONS ---
Date/Time of Note Date/Time of Note DATE: 08/10/16 TIME: 21:29 Assessment/Plan Assessment/Plan Chief Complaint/Hosp Course IMPRESSION: 1. Gastroparesis with large output, 2500 mL coffee-ground color. Hematocrit is stable.resolved 2. Positive stool guaiac. 3. Ischemic liver.liver function improving 4. Diabetes mellitus. 5. Ascites. 6. Electrolyte imbalance. 7. Ischemic cardiomyopathy with ejection fraction for 25%. 8. Pulmonary hypertension. 9.renal failure,steadily improving Plan iv hydration PPI monitor H&H pt.declined EGD ok from GI perspective to dc if ok with primary and other consultants. Problems: Consultation Date/Type/Reason Admit Date/Time Aug 02, 2016 at 08:32 Type of Consultation: GI Referring Provider: ANDREAS FRANCISCO MD 24 HR Interval Summary Free Text/Dictation no acute events Exam/Review of Systems Vital Signs Vitals Vital Signs Date Time Temp Pulse Resp B/P Pulse Ox O2 Delivery O2 Flow Rate FiO2 08/10/16 20:18 92/65 08/10/16 19:50 99.2 87 20 97 08/09/16 16:28 21 08/09/16 06:10 Room Air 08/07/16 15:23 2.0 Intake and Output 08/09/16 08/09/16 08/10/16 15:00 23:00 07:00 Intake Total 950 ml 540 ml Output Total 1000 ml 700 ml Balance -50 ml -160 ml Exam Constitutional: frail Psych: nl mood/affect, no complaints Head: atraumatic, normocephalic Eyes: nl lids ENMT: mucosa pink and moist, nl external ears & nose, nl lips & teeth, nl nasal mucosa & septum Neck: non-tender, supple Respiratory: clear to auscultation, normal air movement Cardiovascular: nl pulses, regular rate and rhythm Gastrointestinal: bowel sounds, non-tender, soft Results Result Diagram: 08/07/16 0610 08/07/16 0610 Results 24 hrs Laboratory Tests Test 08/10/16 07:59 08/10/16 12:11 08/10/16 17:22 08/10/16 20:08 Bedside Glucose 72 118 91 70 Medications Medications Current Medications Aspirin (Aspirin) 81 mg DAILY PO Last administered on 08/02/16t 09:00; Admin Dose 81 MG; Start 08/02/16 at 09:00; Status Future Hold Carvedilol (Coreg) 3.125 mg BID PO Last administered on 08/07/16 08:44; Admin Dose 3.125 MG; Start 08/02/16 at 09:00 Naloxone HCl (Narcan) 0.4 mg Q3M PRN IV DECREASED REPIRATORY RATE; Start at 09:00 Ondansetron HCl (Zofran Inj) 4 mg Q6H PRN IV NAUSEA AND/OR VOMITING Last administered on 08/04/16 02:34; Admin Dose 4 MG; Start 08/02/16 at 09:00 Nitroglycerin (Nitroglycerin (Sl Tab) 0.4 Mg) 1 tab Q5M PRN SL CHEST PAIN; Start 08/02/16 at 09:00 Acetaminophen (Tylenol Tab) 650 mg Q6H PRN PO PAIN LEVEL 1-3 OR FEVER; Start at 09:00 Zolpidem Tartrate (Ambien) 5 mg QHS PRN PO INSOMNIA; Start 08/02/16 at 21:00 Docusate Sodium (Colace) 100 mg Q12H PRN PO CONSTIPATION; Start 08/02/16 at 09: 00 Magnesium Hydroxide (Milk Of Mag) 30 ml DAILY PRN PO CONSTIPATION; Start at 09:00 Bisacodyl (Dulcolax) 5 mg DAILY PRN PO CONSTIPATION; Start 08/02/16 at 09:00 Miscellaneous Information 1 ea NOTE XX ; Start 08/02/16 at 10:00 Glucose (Glutose) 15 gm Q15M PRN PO DECREASED GLUCOSE; Start 08/02/16 at 10:00 Glucose (Glutose) 22.5 gm Q15M PRN PO DECREASED GLUCOSE; Start 08/02/16 at 10: 00 Dextrose (D50w Syringe) 25 ml Q15M PRN IV DECREASED GLUCOSE; Start 08/02/16 at 10:00 Dextrose (D50w Syringe) 50 ml Q15M PRN IV DECREASED GLUCOSE Last administered on 08/02/16 14:11; Admin Dose 50 ML; Start 08/02/16 at 10:00 Glucagon (Glucagen) 1 mg Q15M PRN IM DECREASED GLUCOSE; Start 08/02/16 at 10:00 Glucose 15 gm 15 gm Q15M PRN BUCCAL DECREASED GLUCOSE; Start 08/02/16 at 10:00 Ceftriaxone Sodium (Rocephin) 50 ml @ 100 mls/hr Q24H IVPB Last administered on 08/10/16 17:28; Admin Dose 100 MLS/HR; Start 08/03/16 at 17:00 Pantoprazole (Protonix Iv) 40 mg DAILY@06 IV Last administered on 08/10/16 06: 51; Admin Dose 40 MG; Start 08/04/16 at 06:00 Fluoxetine HCl (Prozac) 40 mg BID PO Last administered on 08/10/16 20:29; Admin Dose 40 MG; Start 08/05/16 at 21:00 Diagnostic Test (Pha) (Accucheck) 1 ea 02 XX ; Start 08/09/16 at 02:00 Insulin Glargine (Lantus) 8 unit QHS SC Last administered on 08/10/16 20:34; Admin Dose 8 UNIT; Start 08/10/16 at 21:00 Furosemide (Lasix) 20 mg DAILY PO Last administered on 08/10/16 13:16; Admin Dose 20 MG; Start 08/10/16 at 12:30 Lisinopril (Zestril) 2.5 mg DAILY PO ; Start 08/11/16 at 09:00 NGOC BARTON MD Aug 10, 2016 21:29
[2016-08-11] VITALS (9 sets, daily range): BP systolic 73–108; BP diastolic 51–70; PULSE 75–88; RESP 18–20
[2016-08-11] MEDS: ACCUCHECK XX SCH (02:00)
[2016-08-11 05:42] LABS: ADD SCAN DIFF NO
[2016-08-11] MEDS: PANTOPRAZOLE 40 MG INJ IV SCH (05:52)
[2016-08-11 05:55] LABS: BASOPHILS % 0.1 % (0.0-2.0); HEMATOCRIT 36.1 % (42.0-52.0); HEMOGLOBIN 12.2 g/dl (14.0-18.0); LYMPHOCYTES # 1.3 10^3/ul (0.8-2.9); MEAN CORPUSCULAR HGB CONC 33.8 g/dl (32.0-37.0); MEAN CORPUSCULAR VOLUME 79.9 fl (82.0-101.0); MEAN PLATELET VOLUME 10.4 fl (7.4-10.4); MONOCYTE # 0.2 10^3/ul (0.3-0.9); MONOCYTES % 1.9 % (0.0-11.0); NEUTROPHIL # 8.6 10^3/ul (1.6-7.5); NEUTROPHILS % 83.6 % (39.0-77.0); PLATELET COUNT 241 10^3/UL (140-415); RED BLOOD COUNT 4.52 10^6/ul (4.70-6.10); RED CELL DISTRIBUTION WIDTH 20.3 % (11.5-14.5); WHITE BLOOD COUNT 10.3 10^3/ul (4.8-10.8)
[2016-08-11 06:13] LABS: POTASSIUM 3.5 mmol/L (3.5-5.1)
[2016-08-11 06:15] LABS: BILIRUBIN,INDIRECT 0.6 mg/dl (0-1.1); BILIRUBIN,TOTAL 0.6 mg/dl (0.2-1.3); CREATININE 0.86 mg/dl (0.61-1.24)
[2016-08-11 06:16] LABS: ALBUMIN/GLOBULIN RATIO 0.66
[2016-08-11] MEDS: INSULIN ASPART [NOVOLOG] 3 ML PEN SC SCH ×4 (08:15→21:00)
[2016-08-11] MEDS: LISINOPRIL 5 MG TAB PO SCH (09:00)
[2016-08-11] MEDS: FUROSEMIDE 20 MG TAB PO SCH (09:00)
[2016-08-11] MEDS: FLUOXETINE 20 MG CAP PO SCH ×2 (09:50→21:00)
[2016-08-11] MEDS ORDERED: SODIUM CHLORIDE 0.45% 500 ML BAG IV* ONE (12:30)
[2016-08-11] MEDS: MIDODRINE 2.5 MG TAB PO SCH (12:35)
[2016-08-11] MEDS ORDERED: SOD CHLORIDE 0.9% 250 ML IV ONE ×2 (13:00→15:00)
[2016-08-11] MEDS ORDERED: SOD CHLORIDE 0.9% 250 ML IV PRN (13:00)
--- NOTE | 2016-08-11 15:30 | CONS ---
Date/Time of Note Date/Time of Note DATE: 08/11/16 TIME: 15:27 Assessment/Plan Assessment/Plan Chief Complaint/Hosp Course Imp: 1.Cardiomyopathy-EF 25% by echo 02/20. Lexiscan negative for ischemia EF 14% 2. positive troponin-minimal in setting of renal failure-now downtrended and negative 3.CHF-systolic acute on chronic 4.hypotension-today to 70's. Now improved s/p IVF bolus 5.Substance abuse 6.Ventricular tachycardia-no recurrence 7.REnal failure-improved 8.Coagulopathy Recc: -Tele -Continue low dose BB/zestril as tolertaed only and follow hold parameters -Follow volume status and renal function closely s/p 500 cc NS IVF bolus for Hotn to 70's now improved to 90 -ICD eval outpatient -cessation of substance abuse -Hold lasix doze today as given IVF bolus for hotn -Check cxr/BNP Problems: Consultation Date/Type/Reason Admit Date/Time Aug 02, 2016 at 08:32 Initial Consult Date 08/02/16 Type of Consultation: Cardiology Reason for Consultation cardiomyopathy/CHF Referring Provider: ANDREAS FRANCISCO MD Exam/Review of Systems Vital Signs Vitals Vital Signs Date Time Temp Pulse Resp B/P Pulse Ox O2 Delivery O2 Flow Rate FiO2 08/11/16 13:10 81 83/63 08/11/16 08:03 98.1 18 97 08/09/16 16:28 21 08/09/16 06:10 Room Air 08/07/16 15:23 2.0 Intake and Output 08/10/16 08/10/16 08/11/16 15:00 23:00 07:00 Intake Total 750 ml 360 ml Output Total 1000 ml 1000 ml Balance -250 ml -640 ml Exam Review of Systems: CONSTITUTIONAL: No fevers, chills. PULMONARY: No sob CARDIOVASCULAR: No chest pain/palpitations GASTROINTESTINAL: No nausea/vomiting. GENITOURINARY: No hematuria/dysuria. MUSCULOSKELETAL: No myagias/arthalgias. PSYCHIATRIC: The patient denies depression. NEUROLOGIC: Generalized weakness Constitutional: alert, oriented Head: normocephalic ENMT: mucosa pink and moist Neck: jvd (9 cm water), supple Respiratory: diminished breath sounds (at bases/B) Cardiovascular: regular rate and rhythm Gastrointestinal: non-tender, soft Musculoskeletal: muscle tone (normal) Extremities: edema (trace/B) Neurological: lethargic Results Result Diagram: 08/11/16 0510 08/11/16 0510 Results 24 hrs Laboratory Tests Test 08/10/16 17:22 08/10/16 20:08 08/11/16 05:10 08/11/16 08:22 Bedside Glucose 91 70 80 Alanine Aminotransferase (ALT/SGPT) 112 H Albumin 2.0 L Albumin/Globulin Ratio 0.66 Alkaline Phosphatase 88 Anion Gap 12 Aspartate Amino Transf (AST/SGOT) 56 H Basophils # 0.0 Basophils % 0.1 Blood Urea Nitrogen 21 H Calcium Level 7.0 L Carbon Dioxide Level 25 Chloride Level 99 Creatinine 0.86 Direct Bilirubin 0.00 Eosinophils # 0.0 Eosinophils % 0.0 Globulin 3.00 Glucose Level 89 Hematocrit 36.1 L Hemoglobin 12.2 L Indirect Bilirubin 0.6 Lymphocytes # 1.3 Lymphocytes % 13.0 L Mean Corpuscular Hemoglobin 27.0 L Mean Corpuscular Hemoglobin Concent 33.8 Mean Corpuscular Volume 79.9 L Mean Platelet Volume 10.4 Monocytes # 0.2 L Monocytes % 1.9 Neutrophils # 8.6 H Neutrophils % 83.6 H Nucleated Red Blood Cells # 0.0 Nucleated Red Blood Cells % 0.0 Platelet Count 241 # Potassium Level 3.5 Red Blood Count 4.52 L Red Cell Distribution Width 20.3 H Sodium Level 132 L Total Bilirubin 0.6 Total Protein 5.0 L White Blood Count 10.3 Test 08/11/16 11:53 Bedside Glucose 101 Medications Medications Current Medications Aspirin (Aspirin) 81 mg DAILY PO Last administered on 08/02/16 09:00; Admin Dose 81 MG; Start 08/02/16 at 09:00; Status Future Hold Carvedilol (Coreg) 3.125 mg BID PO Last administered on 08/07/16 08:44; Admin Dose 3.125 MG; Start 08/02/16 at 09:00 Naloxone HCl (Narcan) 0.4 mg Q3M PRN IV DECREASED REPIRATORY RATE; Start at 09:00 Ondansetron HCl (Zofran Inj) 4 mg Q6H PRN IV NAUSEA AND/OR VOMITING Last administered on 08/04/16 02:34; Admin Dose 4 MG; Start 08/02/16 at 09:00 Nitroglycerin (Nitroglycerin (Sl Tab) 0.4 Mg) 1 tab Q5M PRN SL CHEST PAIN; Start 08/02/16 at 09:00 Acetaminophen (Tylenol Tab) 650 mg Q6H PRN PO PAIN LEVEL 1-3 OR FEVER; Start at 09:00 Zolpidem Tartrate (Ambien) 5 mg QHS PRN PO INSOMNIA; Start 08/02/16 at 21:00 Docusate Sodium (Colace) 100 mg Q12H PRN PO CONSTIPATION; Start 08/02/16 at 09: 00 Magnesium Hydroxide (Milk Of Mag) 30 ml DAILY PRN PO CONSTIPATION; Start at 09:00 Bisacodyl (Dulcolax) 5 mg DAILY PRN PO CONSTIPATION; Start 08/02/16 at 09:00 Miscellaneous Information 1 ea NOTE XX ; Start 08/02/16 at 10:00 Glucose (Glutose) 15 gm Q15M PRN PO DECREASED GLUCOSE; Start 08/02/16 at 10:00 Glucose (Glutose) 22.5 gm Q15M PRN PO DECREASED GLUCOSE; Start 08/02/16 at 10: 00 Dextrose (D50w Syringe) 25 ml Q15M PRN IV DECREASED GLUCOSE; Start 08/02/16 at 10:00 Dextrose (D50w Syringe) 50 ml Q15M PRN IV DECREASED GLUCOSE Last administered on 08/02/16 14:11; Admin Dose 50 ML; Start 08/02/16 at 10:00 Glucagon (Glucagen) 1 mg Q15M PRN IM DECREASED GLUCOSE; Start 08/02/16 at 10:00 Glucose 15 gm 15 gm Q15M PRN BUCCAL DECREASED GLUCOSE; Start 08/02/16 at 10:00 Ceftriaxone Sodium (Rocephin) 50 ml @ 100 mls/hr Q24H IVPB Last administered on 08/10/16 17:28; Admin Dose 100 MLS/HR; Start 08/03/16 at 17:00 Pantoprazole (Protonix Iv) 40 mg DAILY@06 IV Last administered on 08/11/16 05: 52; Admin Dose 40 MG; Start 08/04/16 at 06:00 Fluoxetine HCl (Prozac) 40 mg BID PO Last administered on 08/11/16 09:50; Admin Dose 40 MG; Start 08/05/16 at 21:00 Diagnostic Test (Pha) (Accucheck) 1 ea 02 XX ; Start 08/09/16 at 02:00 Insulin Glargine (Lantus) 8 unit QHS SC Last administered on 08/10/16 20:34; Admin Dose 8 UNIT; Start 08/10/16 at 21:00 Furosemide (Lasix) 20 mg DAILY PO Last administered on 08/10/16 13:16; Admin Dose 20 MG; Start 08/10/16 at 12:30 Lisinopril (Zestril) 2.5 mg DAILY PO ; Start 08/11/16 at 09:00 Midodrine 2.5 mg 2.5 mg DAILY PO Last administered on 08/11/16 12:35; Admin Dose 2.5 MG; Start 08/11/16 at 13:30 Sodium Chloride 250 ml @ 250 mls/hr Q1H PRN IV if BP does not improve Last administered on 08/11/16 13:14; Admin Dose 250 MLS/HR; Start 08/11/16 at 13:00; Stop 08/11/16 at 19:00 Sodium Chloride (NS) 250 ml @ 250 mls/hr Q1H ONCE IV Last administered on 14:41; Admin Dose 250 MLS/HR; Start 08/11/16 at 15:00; Stop 08/11/16 at 15:59 DEXTER ZAMORANO Aug 11, 2016 15:30
[2016-08-11] MEDS: CEFTRIAXONE 1 GM/50 ML (PMX) 50 ML IVPB SCH (17:23)
--- NOTE | 2016-08-11 18:49 | CONS ---
Date/Time of Note Date/Time of Note DATE: 08/11/16 TIME: 18:48 Assessment/Plan Assessment/Plan Chief Complaint/Hosp Course IMPRESSION: 1. Gastroparesis with large output, 2500 mL coffee-ground color. Hematocrit is stable. Gastroparesis appears to have resolved 2. Positive stool guaiac. h/h stable. 3. Ischemic liver.liver function improving 4. Diabetes mellitus. 5. Ascites. 6. Electrolyte imbalance. 7. Ischemic cardiomyopathy with ejection fraction for 25%. 8. Pulmonary hypertension. 9. renal failure,steadily improving Plan gentle iv hydration PPI monitor H&H pt.declined EGD ok from GI perspective to dc if ok with primary and other consultants. Problems: Consultation Date/Type/Reason Admit Date/Time Aug 02, 2016 at 08:32 Type of Consultation: GI Referring Provider: ANDREAS FRANCISCO MD 24 HR Interval Summary Free Text/Dictation resting peacefully and appears comfortable. Exam/Review of Systems Vital Signs Vitals Vital Signs Date Time Temp Pulse Resp B/P Pulse Ox O2 Delivery O2 Flow Rate FiO2 08/11/16 15:15 84 90/65 08/11/16 08:03 98.1 18 97 08/09/16 16:28 21 08/09/16 06:10 Room Air 08/07/16 15:23 2.0 Intake and Output 08/10/16 08/10/16 08/11/16 15:00 23:00 07:00 Intake Total 750 ml 360 ml Output Total 1000 ml 1000 ml Balance -250 ml -640 ml Exam Constitutional: frail Psych: nl mood/affect, no complaints Head: atraumatic, normocephalic Eyes: EOMI, nl conjunctiva, nl lids, nl sclera ENMT: mucosa pink and moist, nl external ears & nose, nl lips & teeth, nl nasal mucosa & septum Neck: non-tender, supple Respiratory: clear to auscultation, normal air movement Cardiovascular: nl pulses, regular rate and rhythm Gastrointestinal: bowel sounds, soft Results Result Diagram: 08/11/16 0510 08/11/16 0510 Results 24 hrs Laboratory Tests Test 08/10/16 20:08 08/11/16 05:10 08/11/16 08:22 08/11/16 11:53 Bedside Glucose 70 80 101 Alanine Aminotransferase (ALT/SGPT) 112 H Albumin 2.0 L Albumin/Globulin Ratio 0.66 Alkaline Phosphatase 88 Anion Gap 12 Aspartate Amino Transf (AST/SGOT) 56 H B-Type Natriuretic Peptide 5100 H Basophils # 0.0 Basophils % 0.1 Blood Urea Nitrogen 21 H Calcium Level 7.0 L Carbon Dioxide Level 25 Chloride Level 99 Creatinine 0.86 Direct Bilirubin 0.00 Eosinophils # 0.0 Eosinophils % 0.0 Globulin 3.00 Glucose Level 89 Hematocrit 36.1 L Hemoglobin 12.2 L Indirect Bilirubin 0.6 Lymphocytes # 1.3 Lymphocytes % 13.0 L Mean Corpuscular Hemoglobin 27.0 L Mean Corpuscular Hemoglobin Concent 33.8 Mean Corpuscular Volume 79.9 L Mean Platelet Volume 10.4 Monocytes # 0.2 L Monocytes % 1.9 Neutrophils # 8.6 H Neutrophils % 83.6 H Nucleated Red Blood Cells # 0.0 Nucleated Red Blood Cells % 0.0 Platelet Count 241 # Potassium Level 3.5 Red Blood Count 4.52 L Red Cell Distribution Width 20.3 H Sodium Level 132 L Total Bilirubin 0.6 Total Protein 5.0 L White Blood Count 10.3 Test 08/11/16 17:21 Bedside Glucose 99 Medications Medications Current Medications Aspirin (Aspirin) 81 mg DAILY PO Last administered on 08/02/16 09:00; Admin Dose 81 MG; Start 08/02/16 at 09:00; Status Future Hold Carvedilol (Coreg) 3.125 mg BID PO Last administered on 08/07/16 08:44; Admin Dose 3.125 MG; Start 08/02/16 at 09:00 Naloxone HCl (Narcan) 0.4 mg Q3M PRN IV DECREASED REPIRATORY RATE; Start at 09:00 Ondansetron HCl (Zofran Inj) 4 mg Q6H PRN IV NAUSEA AND/OR VOMITING Last administered on 08/04/16 02:34; Admin Dose 4 MG; Start 08/02/16 at 09:00 Nitroglycerin (Nitroglycerin (Sl Tab) 0.4 Mg) 1 tab Q5M PRN SL CHEST PAIN; Start 08/02/16 at 09:00 Acetaminophen (Tylenol Tab) 650 mg Q6H PRN PO PAIN LEVEL 1-3 OR FEVER; Start at 09:00 Zolpidem Tartrate (Ambien) 5 mg QHS PRN PO INSOMNIA; Start 08/02/16 at 21:00 Docusate Sodium (Colace) 100 mg Q12H PRN PO CONSTIPATION; Start 08/02/16 at 09: 00 Magnesium Hydroxide (Milk Of Mag) 30 ml DAILY PRN PO CONSTIPATION; Start at 09:00 Bisacodyl (Dulcolax) 5 mg DAILY PRN PO CONSTIPATION; Start 08/02/16 at 09:00 Miscellaneous Information 1 ea NOTE XX ; Start 08/02/16 at 10:00 Glucose (Glutose) 15 gm Q15M PRN PO DECREASED GLUCOSE; Start 08/02/16 at 10:00 Glucose (Glutose) 22.5 gm Q15M PRN PO DECREASED GLUCOSE; Start 08/02/16 at 10: 00 Dextrose (D50w Syringe) 25 ml Q15M PRN IV DECREASED GLUCOSE; Start 08/02/16 at 10:00 Dextrose (D50w Syringe) 50 ml Q15M PRN IV DECREASED GLUCOSE Last administered on 08/02/16 14:11; Admin Dose 50 ML; Start 08/02/16 at 10:00 Glucagon (Glucagen) 1 mg Q15M PRN IM DECREASED GLUCOSE; Start 08/02/16 at 10:00 Glucose 15 gm 15 gm Q15M PRN BUCCAL DECREASED GLUCOSE; Start 08/02/16 at 10:00 Ceftriaxone Sodium (Rocephin) 50 ml @ 100 mls/hr Q24H IVPB Last administered on 08/11/16 17:23; Admin Dose 100 MLS/HR; Start 08/03/16 at 17:00 Pantoprazole (Protonix Iv) 40 mg DAILY@06 IV Last administered on 08/11/16 05: 52; Admin Dose 40 MG; Start 08/04/16 at 06:00 Fluoxetine HCl (Prozac) 40 mg BID PO Last administered on 08/11/16 09:50; Admin Dose 40 MG; Start 08/05/16 at 21:00 Diagnostic Test (Pha) (Accucheck) 1 ea 02 XX ; Start 08/09/16 at 02:00 Insulin Glargine (Lantus) 8 unit QHS SC Last administered on 08/10/16 20:34; Admin Dose 8 UNIT; Start 08/10/16 at 21:00 Furosemide (Lasix) 20 mg DAILY PO Last administered on 08/10/16 13:16; Admin Dose 20 MG; Start 08/10/16 at 12:30 Lisinopril (Zestril) 2.5 mg DAILY PO ; Start 08/11/16 at 09:00 Midodrine 2.5 mg 2.5 mg DAILY PO Last administered on 08/11/16 12:35; Admin Dose 2.5 MG; Start 08/11/16 at 13:30 Sodium Chloride (NS) 250 ml @ 250 mls/hr Q1H PRN IV if BP does not improve Last administered on 08/11/16 13:14; Admin Dose 250 MLS/HR; Start 08/11/16 at 13: 00; Stop 08/11/16 at 19:00 NGOC BARTON MD Aug 11, 2016 18:49
--- NOTE | 2016-08-11 20:59 | PN ---
Date/Time of Note Date/Time of Note DATE: 08/11/16 TIME: 20:57 Assessment/Plan VTE Prophylaxis VTE Prophylaxis Intervention: other Lines/Catheters IV [facility]from [facility] Urinary Cath still in place: No Assessment/Plan Chief Complaint/Hosp Course IMPRESSION: 1. Cardiac arrhythmia, status post ventricular tachycardia. 2. Hypertension. 3. Hyperkalemia.better 4. Chronic kidney disease. 5. Electrolyte imbalance. 6. Ascites.mild 7. Drug abuse. 8. Systolic heart failure. 9 gi bleed 10 drug abuse 11lactic acidosis better 12 sirs 13 abn lft plan home soon dc [place] Problems: Subjective 24 Hr Interval Summary Cardiovascular: no complaints Gastrointestinal: no complaints Exam/Review of Systems Vital Signs Vitals Vital Signs Date Time Temp Pulse Resp B/P Pulse Ox O2 Delivery O2 Flow Rate FiO2 08/11/16 19:42 97.6 91 20 108/70 94 08/09/16 16:28 21 08/09/16 06:10 Room Air 08/07/16 15:23 2.0 Intake and Output 08/10/16 08/10/16 08/11/16 14:59 22:59 06:59 Intake Total 750 ml 360 ml Output Total 1000 ml 1000 ml Balance -250 ml -640 ml Exam Neck: supple Respiratory: clear to auscultation Cardiovascular: regular rate and rhythm Gastrointestinal: bowel sounds (+), soft Extremities: edema (tr) Results Result Diagram: 08/11/16 0510 08/11/16 0510 Results 24 hrs Laboratory Tests Test 08/11/16 05:10 08/11/16 08:22 08/11/16 11:53 08/11/16 17:21 Alanine Aminotransferase (ALT/SGPT) 112 H Albumin 2.0 L Albumin/Globulin Ratio 0.66 Alkaline Phosphatase 88 Anion Gap 12 Aspartate Amino Transf (AST/SGOT) 56 H B-Type Natriuretic Peptide 5100 H Basophils # 0.0 Basophils % 0.1 Blood Urea Nitrogen 21 H Calcium Level 7.0 L Carbon Dioxide Level 25 Chloride Level 99 Creatinine 0.86 Direct Bilirubin 0.00 Eosinophils # 0.0 Eosinophils % 0.0 Globulin 3.00 Glucose Level 89 Hematocrit 36.1 L Hemoglobin 12.2 L Indirect Bilirubin 0.6 Lymphocytes # 1.3 Lymphocytes % 13.0 L Mean Corpuscular Hemoglobin 27.0 L Mean Corpuscular Hemoglobin Concent 33.8 Mean Corpuscular Volume 79.9 L Mean Platelet Volume 10.4 Monocytes # 0.2 L Monocytes % 1.9 Neutrophils # 8.6 H Neutrophils % 83.6 H Nucleated Red Blood Cells # 0.0 Nucleated Red Blood Cells % 0.0 Platelet Count 241 # Potassium Level 3.5 Red Blood Count 4.52 L Red Cell Distribution Width 20.3 H Sodium Level 132 L Total Bilirubin 0.6 Total Protein 5.0 L White Blood Count 10.3 Bedside Glucose 80 101 99 Medications Medications Current Medications Aspirin (Aspirin) 81 mg DAILY PO Last administered on 08/02/16 09:00; Admin Dose 81 MG; Start 08/02/16 at 09:00; Status Future Hold Carvedilol (Coreg) 3.125 mg BID PO Last administered on 08/07/16 08:44; Admin Dose 3.125 MG; Start 08/02/16 at 09:00 Naloxone HCl (Narcan) 0.4 mg Q3M PRN IV DECREASED REPIRATORY RATE; Start at 09:00 Ondansetron HCl (Zofran Inj) 4 mg Q6H PRN IV NAUSEA AND/OR VOMITING Last administered on 08/04/16 02:34; Admin Dose 4 MG; Start 08/02/16 at 09:00 Nitroglycerin (Nitroglycerin (Sl Tab) 0.4 Mg) 1 tab Q5M PRN SL CHEST PAIN; Start 08/02/16 at 09:00 Acetaminophen (Tylenol Tab) 650 mg Q6H PRN PO PAIN LEVEL 1-3 OR FEVER; Start at 09:00 Zolpidem Tartrate (Ambien) 5 mg QHS PRN PO INSOMNIA; Start 08/02/16 at 21:00 Docusate Sodium (Colace) 100 mg Q12H PRN PO CONSTIPATION; Start 08/02/16 at 09: 00 Magnesium Hydroxide (Milk Of Mag) 30 ml DAILY PRN PO CONSTIPATION; Start at 09:00 Bisacodyl (Dulcolax) 5 mg DAILY PRN PO CONSTIPATION; Start 08/02/16 at 09:00 Miscellaneous Information 1 ea NOTE XX ; Start 08/02/16 at 10:00 Glucose (Glutose) 15 gm Q15M PRN PO DECREASED GLUCOSE; Start 08/02/16 at 10:00 Glucose (Glutose) 22.5 gm Q15M PRN PO DECREASED GLUCOSE; Start 08/02/16 at 10: 00 Dextrose (D50w Syringe) 25 ml Q15M PRN IV DECREASED GLUCOSE; Start 08/02/16 at 10:00 Dextrose (D50w Syringe) 50 ml Q15M PRN IV DECREASED GLUCOSE Last administered on 08/02/16 14:11; Admin Dose 50 ML; Start 08/02/16 at 10:00 Glucagon (Glucagen) 1 mg Q15M PRN IM DECREASED GLUCOSE; Start 08/02/16 at 10:00 Glucose 15 gm 15 gm Q15M PRN BUCCAL DECREASED GLUCOSE; Start 08/02/16 at 10:00 Ceftriaxone Sodium (Rocephin) 50 ml @ 100 mls/hr Q24H IVPB Last administered on 08/11/16 17:23; Admin Dose 100 MLS/HR; Start 08/03/16 at 17:00 Pantoprazole (Protonix Iv) 40 mg DAILY@06 IV Last administered on 08/11/16 05: 52; Admin Dose 40 MG; Start 08/04/16 at 06:00 Fluoxetine HCl (Prozac) 40 mg BID PO Last administered on 08/11/16 09:50; Admin Dose 40 MG; Start 08/05/16 at 21:00 Diagnostic Test (Pha) (Accucheck) 1 ea 02 XX ; Start 08/09/16 at 02:00 Insulin Glargine (Lantus) 8 unit QHS SC Last administered on 08/10/16 20:34; Admin Dose 8 UNIT; Start 08/10/16 at 21:00 Furosemide (Lasix) 20 mg DAILY PO Last administered on 08/10/16 13:16; Admin Dose 20 MG; Start 08/10/16 at 12:30 Lisinopril (Zestril) 2.5 mg DAILY PO ; Start 08/11/16 at 09:00 Midodrine (Proamatine) 2.5 mg DAILY PO Last administered on 08/11/16 12:35; Admin Dose 2.5 MG; Start 08/11/16 at 13:30 ANDREAS FRANCISCO MD Aug 11, 2016 20:59
[2016-08-11] MEDS: INSULIN GLARGINE [LANtus] 3 ML PEN SC SCH (21:00)
--- NOTE | 2016-08-12 01:06 | RADRPT ---
PROCEDURE: XR Chest. CLINICAL INDICATION: Congestive heart failure. TECHNIQUE: Single frontal view of the chest was obtained COMPARISON: 08/02/2016. FINDINGS: Cardiomegaly and bilateral patchy air space disease. small right pleural effusion. There is no pneumothorax. IMPRESSION: Mild failure. RPTAT: [facility] Physician Sophia Date Time Electronically viewed and signed by Lily Bravo Physician on 08/12/2016 01:06 RS/
[2016-08-12] MEDS: ACCUCHECK XX SCH (02:00)
[2016-08-12] MEDS: PANTOPRAZOLE 40 MG INJ IV SCH (06:10)
[2016-08-12 07:37] VITALS: BP 91/67; RESP 20
[2016-08-12] MEDS: INSULIN ASPART [NOVOLOG] 3 ML PEN SC SCH ×4 (08:15→21:00)
[2016-08-12] MEDS: FUROSEMIDE 20 MG TAB PO SCH ×2 (09:00→21:00)
[2016-08-12] MEDS: FLUOXETINE 20 MG CAP PO SCH ×2 (10:16→21:00)
[2016-08-12] MEDS: MIDODRINE 2.5 MG TAB PO SCH (10:17)
[2016-08-12] MEDS: LISINOPRIL 5 MG TAB PO SCH (10:17)
--- NOTE | 2016-08-12 12:11 | CONS ---
Date/Time of Note Date/Time of Note DATE: 08/12/16 TIME: 12:08 Assessment/Plan Assessment/Plan Chief Complaint/Hosp Course Imp: 1.Cardiomyopathy-EF 25% by echo 02/20. Lexiscan negative for ischemia EF 14% 2. positive troponin-minimal in setting of renal failure-now downtrended and negative 3.CHF-systolic acute on chronic 4.hypotension-today to 70's yesterday. REasonable today s/p additional IVF hydration 5.Substance abuse 6.Ventricular tachycardia-no recurrence 7.REnal failure-improved 8.Coagulopathy Recc: -Tele -Hold BB/zestril today and follow BP closely -midodrine as necessary for BP support only -ICD eval outpatient -cessation of substance abuse -Lasix as tolerated -PT Problems: Consultation Date/Type/Reason Admit Date/Time Aug 02, 2016 at 08:32 Initial Consult Date 08/02/16 Type of Consultation: Cardiology Reason for Consultation CHF Referring Provider: ANDREAS FRANCISCO MD Exam/Review of Systems Vital Signs Vitals Vital Signs Date Time Temp Pulse Resp B/P Pulse Ox O2 Delivery O2 Flow Rate FiO2 08/12/16 07:37 98.1 78 20 91/67 96 08/09/16 16:28 21 08/09/16 06:10 Room Air Intake and Output 08/11/16 08/11/16 08/12/16 15:00 23:00 07:00 Intake Total 1650 ml 980 ml 600 ml Output Total 650 ml Balance 1650 ml 330 ml 600 ml Exam Review of Systems: CONSTITUTIONAL: No fevers, chills. PULMONARY: No sob CARDIOVASCULAR: No chest pain/palpitations GASTROINTESTINAL: No nausea/vomiting. GENITOURINARY: No hematuria/dysuria. MUSCULOSKELETAL: No myagias/arthalgias. PSYCHIATRIC: The patient denies depression. NEUROLOGIC: No weakness Constitutional: alert, oriented Psych: no complaints Head: normocephalic ENMT: mucosa pink and moist Neck: jvd, supple Respiratory: diminished breath sounds (at bases/B) Cardiovascular: regular rate and rhythm Gastrointestinal: non-tender, soft Musculoskeletal: muscle weakness (generalized) Extremities: edema (trace/B) Neurological: lethargic, other (No focal deficits) Results Result Diagram: 08/11/16 0510 08/11/16 0510 Results 24 hrs Laboratory Tests Test 08/11/16:21 08/11/16 21:53 08/12/16 00:23 08/12/16 08:10 Bedside Glucose 99 100 71 74 Test 08/12/16 11:49 Bedside Glucose 108 Medications Medications Current Medications Aspirin (Aspirin) 81 mg DAILY PO Last administered on 08/02/16 09:00; Admin Dose 81 MG; Start 08/02/16 at 09:00; Status Future Hold Carvedilol (Coreg) 3.125 mg BID PO Last administered on 08/12/16 10:19; Admin Dose 3.125 MG; Start 08/02/16 at 09:00 Naloxone HCl (Narcan) 0.4 mg Q3M PRN IV DECREASED REPIRATORY RATE; Start at 09:00 Ondansetron HCl (Zofran Inj) 4 mg Q6H PRN IV NAUSEA AND/OR VOMITING Last administered on 08/04/16 02:34; Admin Dose 4 MG; Start 08/02/16 at 09:00 Nitroglycerin (Nitroglycerin (Sl Tab) 0.4 Mg) 1 tab Q5M PRN SL CHEST PAIN; Start 08/02/16 at 09:00 Acetaminophen (Tylenol Tab) 650 mg Q6H PRN PO PAIN LEVEL 1-3 OR FEVER; Start at 09:00 Zolpidem Tartrate (Ambien) 5 mg QHS PRN PO INSOMNIA; Start 08/02/16 at 21:00 Docusate Sodium (Colace) 100 mg Q12H PRN PO CONSTIPATION; Start 08/02/16 at 09: 00 Magnesium Hydroxide (Milk Of Mag) 30 ml DAILY PRN PO CONSTIPATION; Start at 09:00 Bisacodyl (Dulcolax) 5 mg DAILY PRN PO CONSTIPATION; Start 08/02/16 at 09:00 Miscellaneous Information 1 ea NOTE XX ; Start 08/02/16 at 10:00 Glucose (Glutose) 15 gm Q15M PRN PO DECREASED GLUCOSE; Start 08/02/16 at 10:00 Glucose (Glutose) 22.5 gm Q15M PRN PO DECREASED GLUCOSE; Start 08/02/16 at 10: 00 Dextrose (D50w Syringe) 25 ml Q15M PRN IV DECREASED GLUCOSE; Start 08/02/16 at 10:00 Dextrose (D50w Syringe) 50 ml Q15M PRN IV DECREASED GLUCOSE Last administered on 08/02/16 14:11; Admin Dose 50 ML; Start 08/02/16 at 10:00 Glucagon (Glucagen) 1 mg Q15M PRN IM DECREASED GLUCOSE; Start 08/02/16 at 10:00 Glucose 15 gm 15 gm Q15M PRN BUCCAL DECREASED GLUCOSE; Start 08/02/16 at 10:00 Ceftriaxone Sodium (Rocephin) 50 ml @ 100 mls/hr Q24H IVPB Last administered on 08/11/16 17:23; Admin Dose 100 MLS/HR; Start 08/03/16 at 17:00 Pantoprazole (Protonix Iv) 40 mg DAILY@06 IV Last administered on 08/12/16 06: 10; Admin Dose 40 MG; Start 08/04/16 at 06:00 Fluoxetine HCl (Prozac) 40 mg BID PO Last administered on 08/12/16 10:16; Admin Dose 40 MG; Start 08/05/16 at 21:00 Diagnostic Test (Pha) (Accucheck) 1 ea 02 XX ; Start 08/09/16 at 02:00 Insulin Glargine (Lantus) 8 unit QHS SC Last administered on 08/10/16 20:34; Admin Dose 8 UNIT; Start 08/10/16 at 21:00 Furosemide (Lasix) 20 mg DAILY PO Last administered on 08/10/16 13:16; Admin Dose 20 MG; Start 08/10/16 at 12:30 Lisinopril (Zestril) 2.5 mg DAILY PO Last administered on 08/12/16 10:17; Admin Dose 2.5 MG; Start 08/11/16 at 09:00 Midodrine (Proamatine) 2.5 mg DAILY PO Last administered on 08/12/16 10:17; Admin Dose 2.5 MG; Start 08/11/16 at 13:30 DEXTER ZAMORANO Aug 12, 2016 12:11
[2016-08-12 16:34] VITALS: BP 77/60; PULSE 72
[2016-08-12] MEDS: CEFTRIAXONE 1 GM/50 ML (PMX) 50 ML IVPB SCH (16:36)
--- NOTE | 2016-08-12 18:17 | CONS ---
Date/Time of Note Date/Time of Note DATE: 08/12/16 TIME: 18:13 Assessment/Plan Assessment/Plan Chief Complaint/Hosp Course IMPRESSION: 1. Gastroparesis with large output, 2500 mL coffee-ground color. Hematocrit is stable. Gastroparesis appears to have resolved 2. Positive stool guaiac. h/h stable. 3. Ischemic liver.liver function improving 4. Diabetes mellitus. 5. Ascites. 6. Electrolyte imbalance. 7. Ischemic cardiomyopathy with ejection fraction for 25%. 8. Pulmonary hypertension. 9. renal failure,steadily improving Plan gentle iv hydration PPI monitor H&H pt.declined EGD Stable from GI perspective Hopefully can dc home soon. Problems: Consultation Date/Type/Reason Admit Date/Time Aug 02, 2016 at 08:32 Type of Consultation: GI Referring Provider: ANDREAS FRANCISCO MD 24 HR Interval Summary Free Text/Dictation no f, c, cp, sob, abd pain, n/v Exam/Review of Systems Vital Signs Vitals Vital Signs Date Time Temp Pulse Resp B/P Pulse Ox O2 Delivery O2 Flow Rate FiO2 08/12/16 16:34 72 77/60 08/12/16 07:37 98.1 20 96 08/09/16 16:28 21 08/09/16 06:10 Room Air Intake and Output 08/11/16 08/11/16 08/12/16 14:59 22:59 06:59 Intake Total 1650 ml 980 ml 600 ml Output Total 650 ml Balance 1650 ml 330 ml 600 ml Exam Constitutional: alert, well developed Psych: nl mood/affect, no complaints Head: atraumatic, normocephalic Eyes: EOMI, nl conjunctiva, nl lids, nl sclera ENMT: mucosa pink and moist, nl external ears & nose, nl lips & teeth, nl nasal mucosa & septum Neck: non-tender, supple Respiratory: clear to auscultation, normal air movement Cardiovascular: nl pulses, regular rate and rhythm Gastrointestinal: bowel sounds, non-tender, soft Results Result Diagram: 08/11/16 0510 08/11/16 0510 Results 24 hrs Laboratory Tests Test 08/11/16 21:53 08/12/16 00:23 08/12/16 08:10 08/12/16 11:49 Bedside Glucose 100 71 74 108 Test 08/12/16 17:04 Bedside Glucose 124 Medications Medications Current Medications Aspirin (Aspirin) 81 mg DAILY PO Last administered on 08/02/16 09:00; Admin Dose 81 MG; Start 08/02/16 at 09:00; Status Future Hold Carvedilol (Coreg) 3.125 mg BID PO Last administered on 08/12/16 10:19; Admin Dose 3.125 MG; Start 08/02/16 at 09:00 Naloxone HCl (Narcan) 0.4 mg Q3M PRN IV DECREASED REPIRATORY RATE; Start at 09:00 Ondansetron HCl (Zofran Inj) 4 mg Q6H PRN IV NAUSEA AND/OR VOMITING Last administered on 08/04/16 02:34; Admin Dose 4 MG; Start 08/02/16 at 09:00 Nitroglycerin (Nitroglycerin (Sl Tab) 0.4 Mg) 1 tab Q5M PRN SL CHEST PAIN; Start 08/02/16 at 09:00 Acetaminophen (Tylenol Tab) 650 mg Q6H PRN PO PAIN LEVEL 1-3 OR FEVER; Start at 09:00 Zolpidem Tartrate (Ambien) 5 mg QHS PRN PO INSOMNIA; Start 08/02/16 at 21:00 Docusate Sodium (Colace) 100 mg Q12H PRN PO CONSTIPATION; Start 08/02/16 at 09: 00 Magnesium Hydroxide (Milk Of Mag) 30 ml DAILY PRN PO CONSTIPATION; Start at 09:00 Bisacodyl (Dulcolax) 5 mg DAILY PRN PO CONSTIPATION; Start 08/02/16 at 09:00 Miscellaneous Information 1 ea NOTE XX ; Start 08/02/16 at 10:00 Glucose (Glutose) 15 gm Q15M PRN PO DECREASED GLUCOSE; Start 08/02/16 at 10:00 Glucose (Glutose) 22.5 gm Q15M PRN PO DECREASED GLUCOSE; Start 08/02/16 at 10: 00 Dextrose (D50w Syringe) 25 ml Q15M PRN IV DECREASED GLUCOSE; Start 08/02/16 at 10:00 Dextrose (D50w Syringe) 50 ml Q15M PRN IV DECREASED GLUCOSE Last administered on 08/02/16 14:11; Admin Dose 50 ML; Start 08/02/16 at 10:00 Glucagon (Glucagen) 1 mg Q15M PRN IM DECREASED GLUCOSE; Start 08/02/16 at 10:00 Glucose 15 gm 15 gm Q15M PRN BUCCAL DECREASED GLUCOSE; Start 08/02/16 at 10:00 Ceftriaxone Sodium (Rocephin) 50 ml @ 100 mls/hr Q24H IVPB Last administered on 08/12/16 16:36; Admin Dose 100 MLS/HR; Start 08/03/16 at 17:00 Fluoxetine HCl (Prozac) 40 mg BID PO Last administered on 08/12/16 10:16; Admin Dose 40 MG; Start 08/05/16 at 21:00 Diagnostic Test (Pha) (Accucheck) 1 ea 02 XX ; Start 08/09/16 at 02:00 Insulin Glargine (Lantus) 8 unit QHS SC Last administered on 08/10/16 20:34; Admin Dose 8 UNIT; Start 08/10/16 at 21:00 Furosemide (Lasix) 20 mg DAILY PO Last administered on 08/10/16 13:16; Admin Dose 20 MG; Start 08/10/16 at 12:30 Lisinopril (Zestril) 2.5 mg DAILY PO Last administered on 08/12/16 10:17; Admin Dose 2.5 MG; Start 08/11/16 at 09:00; Status Future Hold Midodrine (Proamatine) 2.5 mg DAILY PO Last administered on 08/12/16 10:17; Admin Dose 2.5 MG; Start 08/11/16 at 13:30 Pantoprazole (Protonix Tab) 40 mg DAILY@06 PO ; Start 08/13/16 at 06:00 NGOC BARTON MD Aug 12, 2016 18:16
[2016-08-12 19:00] VITALS: BP 83/55; RESP 16
--- NOTE | 2016-08-12 19:38 | PN ---
Date/Time of Note Date/Time of Note DATE: 08/12/16 TIME: 19:37 Assessment/Plan VTE Prophylaxis VTE Prophylaxis Intervention: other Lines/Catheters IV C[facility]ter Type [facility]from [facility] Saline Lock Urinary Cath still in place: No Assessment/Plan Chief Complaint/Hosp Course IMPRESSION: 1. Cardiac arrhythmia, status post ventricular tachycardia. 2. Hypertension. 3. Hyperkalemia.better 4. Chronic kidney disease. 5. Electrolyte imbalance. 6. Ascites.mild 7. Drug abuse. 8. Systolic heart failure. 9 gi bleed 10 drug abuse 11lactic acidosis better 12 sirs 13 abn lft plan home soon lasix Problems: Subjective 24 Hr Interval Summary Cardiovascular: orthopenea (+) Exam/Review of Systems Vital Signs Vitals Vital Signs Date Time Temp Pulse Resp B/P Pulse Ox O2 Delivery O2 Flow Rate FiO2 08/12/16 16:34 72 77/60 08/12/16 07:37 98.1 20 96 08/09/16 16:28 21 08/09/16 06:10 Room Air Intake and Output 08/11/16 08/11/16 08/12/16 15:00 23:00 07:00 Intake Total 1650 ml 980 ml 600 ml Output Total 650 ml Balance 1650 ml 330 ml 600 ml Exam Respiratory: clear to auscultation Cardiovascular: regular rate and rhythm Gastrointestinal: soft Musculoskeletal: nl extremities to inspection Results Result Diagram: 08/11/16 0510 08/11/16 0510 Results 24 hrs Laboratory Tests Test 08/11/16 21:53 08/12/16 00:23 08/12/16 08:10 08/12/16 11:49 Bedside Glucose 100 71 74 108 Test 08/12/16 17:04 Bedside Glucose 124 Medications Medications Current Medications Aspirin (Aspirin) 81 mg DAILY PO Last administered on 08/02/16 09:00; Admin Dose 81 MG; Start 08/02/16 at 09:00; Status Future Hold Carvedilol (Coreg) 3.125 mg BID PO Last administered on 08/12/16 10:19; Admin Dose 3.125 MG; Start 08/02/16 at 09:00 Naloxone HCl (Narcan) 0.4 mg Q3M PRN IV DECREASED REPIRATORY RATE; Start at 09:00 Ondansetron HCl (Zofran Inj) 4 mg Q6H PRN IV NAUSEA AND/OR VOMITING Last administered on 08/04/16 02:34; Admin Dose 4 MG; Start 08/02/16 at 09:00 Nitroglycerin (Nitroglycerin (Sl Tab) 0.4 Mg) 1 tab Q5M PRN SL CHEST PAIN; Start 08/02/16 at 09:00 Acetaminophen (Tylenol Tab) 650 mg Q6H PRN PO PAIN LEVEL 1-3 OR FEVER; Start at 09:00 Zolpidem Tartrate (Ambien) 5 mg QHS PRN PO INSOMNIA; Start 08/02/16 at 21:00 Docusate Sodium (Colace) 100 mg Q12H PRN PO CONSTIPATION; Start 08/02/16 at 09: 00 Magnesium Hydroxide (Milk Of Mag) 30 ml DAILY PRN PO CONSTIPATION; Start at 09:00 Bisacodyl (Dulcolax) 5 mg DAILY PRN PO CONSTIPATION; Start 08/02/16 at 09:00 Miscellaneous Information 1 ea NOTE XX ; Start 08/02/16 at 10:00 Glucose (Glutose) 15 gm Q15M PRN PO DECREASED GLUCOSE; Start 08/02/16 at 10:00 Glucose (Glutose) 22.5 gm Q15M PRN PO DECREASED GLUCOSE; Start 08/02/16 at 10: 00 Dextrose (D50w Syringe) 25 ml Q15M PRN IV DECREASED GLUCOSE; Start 08/02/16 at 10:00 Dextrose (D50w Syringe) 50 ml Q15M PRN IV DECREASED GLUCOSE Last administered on 08/02/16 14:11; Admin Dose 50 ML; Start 08/02/16 at 10:00 Glucagon (Glucagen) 1 mg Q15M PRN IM DECREASED GLUCOSE; Start 08/02/16 at 10:00 Glucose 15 gm 15 gm Q15M PRN BUCCAL DECREASED GLUCOSE; Start 08/02/16 at 10:00 Ceftriaxone Sodium (Rocephin) 50 ml @ 100 mls/hr Q24H IVPB Last administered on 08/12/16 16:36; Admin Dose 100 MLS/HR; Start 08/03/16 at 17:00 Fluoxetine HCl (Prozac) 40 mg BID PO Last administered on 08/12/16 10:16; Admin Dose 40 MG; Start 08/05/16 at 21:00 Diagnostic Test (Pha) (Accucheck) 1 ea 02 XX ; Start 08/09/16 at 02:00 Insulin Glargine (Lantus) 8 unit QHS SC Last administered on 08/10/16 20:34; Admin Dose 8 UNIT; Start 08/10/16 at 21:00 Furosemide (Lasix) 20 mg DAILY PO Last administered on 08/10/16 13:16; Admin Dose 20 MG; Start 08/10/16 at 12:30 Lisinopril (Zestril) 2.5 mg DAILY PO Last administered on 08/12/16 10:17; Admin Dose 2.5 MG; Start 08/11/16 at 09:00; Status Future Hold Midodrine (Proamatine) 2.5 mg DAILY PO Last administered on 08/12/16 10:17; Admin Dose 2.5 MG; Start 08/11/16 at 13:30 Pantoprazole (Protonix Tab) 40 mg DAILY@06 PO ; Start 08/13/16 at 06:00 ANDREAS FRANCISCO MD Aug 12, 2016 19:38
[2016-08-12] MEDS: INSULIN GLARGINE [LANtus] 3 ML PEN SC SCH (21:05)
[2016-08-13] MEDS: ACCUCHECK XX SCH (02:00)
[2016-08-13 05:38] LABS: ADD SCAN DIFF NO
[2016-08-13 05:45] LABS: BASOPHILS % 0.1 % (0.0-2.0); EOSINOPHILS # 0.1 10^3/ul (0.0-0.5); EOSINOPHILS % 0.6 % (0.0-7.0); HEMATOCRIT 35.3 % (42.0-52.0); HEMOGLOBIN 11.7 g/dl (14.0-18.0); LYMPHOCYTES # 1.7 10^3/ul (0.8-2.9); LYMPHOCYTES % 20.5 % (15.0-51.0); MEAN CORPUSCULAR HEMOGLOBIN 26.8 pg (29.0-33.0); MEAN CORPUSCULAR HGB CONC 33.1 g/dl (32.0-37.0); MEAN CORPUSCULAR VOLUME 80.8 fl (82.0-101.0); MEAN PLATELET VOLUME 10.8 fl (7.4-10.4); MONOCYTE # 0.4 10^3/ul (0.3-0.9); MONOCYTES % 4.4 % (0.0-11.0); NEUTROPHIL # 6.1 10^3/ul (1.6-7.5); NEUTROPHILS % 73.7 % (39.0-77.0); PLATELET COUNT 274 10^3/UL (140-415); RED BLOOD COUNT 4.37 10^6/ul (4.70-6.10); RED CELL DISTRIBUTION WIDTH 19.9 % (11.5-14.5); WHITE BLOOD COUNT 8.2 10^3/ul (4.8-10.8)
[2016-08-13 05:59] LABS: POTASSIUM 3.1 mmol/L (3.5-5.1)
[2016-08-13] MEDS ORDERED: PANTOPRAZOLE (EC) 40 MG TAB PO SCH (06:00)
[2016-08-13 06:01] LABS: ALBUMIN/GLOBULIN RATIO 0.66; BILIRUBIN,INDIRECT 0.7 mg/dl (0-1.1); BILIRUBIN,TOTAL 0.7 mg/dl (0.2-1.3); CREATININE 0.71 mg/dl (0.61-1.24)
[2016-08-13 06:02] LABS: CALCIUM 6.9 mg/dl (8.4-10.2)
[2016-08-13 07:41] VITALS: BP 95/67; RESP 16
[2016-08-13 07:43] VITALS: BP 129/70; RESP 16
[2016-08-13] MEDS: INSULIN ASPART [NOVOLOG] 3 ML PEN SC SCH ×2 (08:12→12:15)
[2016-08-13] MEDS: MIDODRINE 2.5 MG TAB PO SCH (08:13)
[2016-08-13] MEDS: FLUOXETINE 20 MG CAP PO SCH (09:00)
[2016-08-13] MEDS: FUROSEMIDE 20 MG TAB PO SCH (09:42)
--- NOTE | 2016-08-13 12:43 | CONS ---
Date/Time of Note Date/Time of Note DATE: 08/13/16 TIME: 12:40 Assessment/Plan Assessment/Plan Chief Complaint/Hosp Course Imp: 1.Cardiomyopathy-EF 25% by echo 02/20. Lexiscan negative for ischemia EF 14% 2. positive troponin-minimal in setting of renal failure-now downtrended and negative 3.CHF-systolic acute on chronic 4.hypotension-currently impoved and tolerating coreg 5.Substance abuse 6.Ventricular tachycardia-no recurrence 7.REnal failure-improved 8.Coagulopathy 9.Hyponatremia-improving Recc: -Tele -Hold zestril today and follow BP closely -Continue current coreg as tolerated -midodrine as necessary for BP support only -ICD eval outpatient -cessation of substance abuse -Lasix as tolerated -PT as tolerated Problems: Consultation Date/Type/Reason Admit Date/Time Aug 02, 2016 at 08:32 Initial Consult Date 08/02/16 Type of Consultation: Cardiology Reason for Consultation CHF/VT Referring Provider: ANDREAS FRANCISCO MD Exam/Review of Systems Vital Signs Vitals Vital Signs Date Time Temp Pulse Resp B/P Pulse Ox O2 Delivery O2 Flow Rate FiO2 08/13/16 07:43 98.6 99 16 129/70 95 08/09/16 16:28 21 Intake and Output 08/12/16 08/12/16 08/13/16 15:00 23:00 07:00 Intake Total 650 ml 340 ml Output Total 400 ml 700 ml Balance 250 ml -360 ml Exam Review of Systems: CONSTITUTIONAL: No fevers, chills. PULMONARY: No sob CARDIOVASCULAR: No chest pain/palpitations GASTROINTESTINAL: No nausea/vomiting. GENITOURINARY: No hematuria/dysuria. MUSCULOSKELETAL: No myagias/arthalgias. PSYCHIATRIC: The patient denies depression. NEUROLOGIC: generalized weakness Constitutional: alert, oriented Psych: no complaints Head: normocephalic ENMT: mucosa pink and moist Neck: jvd (9 cm water), supple Respiratory: diminished breath sounds (at bases/B) Cardiovascular: regular rate and rhythm Gastrointestinal: non-tender, soft Musculoskeletal: muscle tone (normal) Extremities: edema (none) Neurological: other (No focal deficits) Results Result Diagram: 08/13/16 0515 08/13/16 0515 Results 24 hrs Laboratory Tests Test 08/12/16 17:04 08/12/16 20:59 08/13/16 05:15 08/13/16 07:57 Bedside Glucose 124 97 66 L Alanine Aminotransferase (ALT/SGPT) 85 H Albumin 2.0 L Albumin/Globulin Ratio 0.66 Alkaline Phosphatase 86 Anion Gap 10 Aspartate Amino Transf (AST/SGOT) 51 H Basophils # 0.0 Basophils % 0.1 Blood Urea Nitrogen 16 Calcium Level 6.9 L Carbon Dioxide Level 27 Chloride Level 100 Creatinine 0.71 Direct Bilirubin 0.00 Eosinophils # 0.1 Eosinophils % 0.6 Globulin 3.00 Glucose Level 72 Hematocrit 35.3 L Hemoglobin 11.7 L Indirect Bilirubin 0.7 Lymphocytes # 1.7 Lymphocytes % 20.5 Mean Corpuscular Hemoglobin 26.8 L Mean Corpuscular Hemoglobin Concent 33.1 Mean Corpuscular Volume 80.8 L Mean Platelet Volume 10.8 H Monocytes # 0.4 Monocytes % 4.4 Neutrophils # 6.1 Neutrophils % 73.7 Nucleated Red Blood Cells # 0.0 Nucleated Red Blood Cells % 0.0 Platelet Count 274 Potassium Level 3.1 L Red Blood Count 4.37 L Red Cell Distribution Width 19.9 H Sodium Level 134 L Total Bilirubin 0.7 Total Protein 5.0 L White Blood Count 8.2 # Test 08/13/16 09:07 08/13/16 09:45 08/13/16 12:07 Bedside Glucose 103 95 85 Medications Medications Current Medications Aspirin (Aspirin) 81 mg DAILY PO Last administered on 08/02/16 09:00; Admin Dose 81 MG; Start 08/02/16 at 09:00; Status Future Hold Carvedilol (Coreg) 3.125 mg BID PO Last administered on 08/13/16 09:41; Admin Dose 3.125 MG; Start 08/02/16 at 09:00 Naloxone HCl (Narcan) 0.4 mg Q3M PRN IV DECREASED REPIRATORY RATE; Start at 09:00 Ondansetron HCl (Zofran Inj) 4 mg Q6H PRN IV NAUSEA AND/OR VOMITING Last administered on 08/04/16 02:34; Admin Dose 4 MG; Start 08/02/16 at 09:00 Nitroglycerin (Nitroglycerin (Sl Tab) 0.4 Mg) 1 tab Q5M PRN SL CHEST PAIN; Start 08/02/16 at 09:00 Acetaminophen (Tylenol Tab) 650 mg Q6H PRN PO PAIN LEVEL 1-3 OR FEVER; Start at 09:00 Zolpidem Tartrate (Ambien) 5 mg QHS PRN PO INSOMNIA; Start 08/02/16 at 21:00 Docusate Sodium (Colace) 100 mg Q12H PRN PO CONSTIPATION; Start 08/02/16 at 09: 00 Magnesium Hydroxide (Milk Of Mag) 30 ml DAILY PRN PO CONSTIPATION; Start at 09:00 Bisacodyl (Dulcolax) 5 mg DAILY PRN PO CONSTIPATION; Start 08/02/16 at 09:00 Miscellaneous Information 1 ea NOTE XX ; Start 08/02/16 at 10:00 Glucose (Glutose) 15 gm Q15M PRN PO DECREASED GLUCOSE; Start 08/02/16 at 10:00 Glucose (Glutose) 22.5 gm Q15M PRN PO DECREASED GLUCOSE; Start 08/02/16 at 10: 00 Dextrose (D50w Syringe) 25 ml Q15M PRN IV DECREASED GLUCOSE; Start 08/02/16 at 10:00 Dextrose (D50w Syringe) 50 ml Q15M PRN IV DECREASED GLUCOSE Last administered on 08/02/16 14:11; Admin Dose 50 ML; Start 08/02/16 at 10:00 Glucagon (Glucagen) 1 mg Q15M PRN IM DECREASED GLUCOSE; Start 08/02/16 at 10:00 Glucose 15 gm 15 gm Q15M PRN BUCCAL DECREASED GLUCOSE; Start 08/02/16 at 10:00 Ceftriaxone Sodium (Rocephin) 50 ml @ 100 mls/hr Q24H IVPB Last administered on 08/12/16 16:36; Admin Dose 100 MLS/HR; Start 08/03/16 at 17:00 Fluoxetine HCl (Prozac) 40 mg BID PO Last administered on 08/12/16 10:16; Admin Dose 40 MG; Start 08/05/16 at 21:00 Diagnostic Test (Pha) (Accucheck) 1 ea 02 XX ; Start 08/09/16 at 02:00 Insulin Glargine (Lantus) 8 unit QHS SC Last administered on 08/12/16 21:05; Admin Dose 8 UNIT; Start 08/10/16 at 21:00 Lisinopril (Zestril) 2.5 mg DAILY PO Last administered on 08/12/16 10:17; Admin Dose 2.5 MG; Start 08/11/16 at 09:00; Status Future Hold Midodrine (Proamatine) 2.5 mg DAILY PO Last administered on 08/12/16 10:17; Admin Dose 2.5 MG; Start 08/11/16 at 13:30 Pantoprazole (Protonix Tab) 40 mg DAILY@06 PO Last administered on 08/13/16 06: 03; Admin Dose 40 MG; Start 08/13/16 at 06:00 Furosemide (Lasix) 20 mg BID PO Last administered on 08/13/16 09:42; Admin Dose 20 MG; Start 08/12/16 at 21:00 DEXTER ZAMORANO Aug 13, 2016 12:43
[2016-08-13 15:58] VITALS: BP 96/64
[2016-08-13] MEDS ORDERED: POTASSIUM CHLORIDE (SR) 8 MEQ CAP PO SCH (18:30)
--- NOTE | 2016-08-13 21:18 | CONS ---
Date/Time of Note Date/Time of Note DATE: 08/13/16 TIME: 21:16 Assessment/Plan Assessment/Plan Chief Complaint/Hosp Course IMPRESSION: 1. Gastroparesis with large output, 2500 mL coffee-ground color. Hematocrit is stable. Gastroparesis appears to have resolved 2. Positive stool guaiac. h/h stable. 3. Ischemic liver.liver function improving 4. Diabetes mellitus. 5. Ascites. 6. Electrolyte imbalance. 7. Ischemic cardiomyopathy with ejection fraction for 25%. 8. Pulmonary hypertension. 9. renal failure,steadily improving Plan gentle iv hydration PPI monitor H&H pt.declined EGD Stable from GI perspective ok to dc from gi perspective if ok with primary and other consultants Problems: Consultation Date/Type/Reason Admit Date/Time Aug 02, 2016 at 08:32 Type of Consultation: GI Referring Provider: ANDREAS FRANCISCO MD 24 HR Interval Summary Free Text/Dictation no n/v, no abd pain Exam/Review of Systems Vital Signs Vitals Vital Signs Date Time Temp Pulse Resp B/P Pulse Ox O2 Delivery O2 Flow Rate FiO2 08/13/16 15:58 96/64 08/13/16 07:43 98.6 99 16 95 08/09/16 16:28 21 Intake and Output 08/12/16 08/12/16 08/13/16 15:00 23:00 07:00 Intake Total 650 ml 340 ml Output Total 400 ml 700 ml Balance 250 ml -360 ml Exam Head: atraumatic, normocephalic Eyes: nl lids ENMT: mucosa pink and moist, nl external ears & nose, nl lips & teeth Neck: non-tender, supple Respiratory: clear to auscultation, normal air movement Cardiovascular: nl pulses, regular rate and rhythm Gastrointestinal: bowel sounds, non-tender, soft Results Result Diagram: 08/13/16 0515 08/13/16 0515 Results 24 hrs Laboratory Tests Test 08/13/16 05:15 08/13/16 07:57 08/13/16 09:07 08/13/16 09:45 Alanine Aminotransferase (ALT/SGPT) 85 H Albumin 2.0 L Albumin/Globulin Ratio 0.66 Alkaline Phosphatase 86 Anion Gap 10 Aspartate Amino Transf (AST/SGOT) 51 H Basophils # 0.0 Basophils % 0.1 Blood Urea Nitrogen 16 Calcium Level 6.9 L Carbon Dioxide Level 27 Chloride Level 100 Creatinine 0.71 Direct Bilirubin 0.00 Eosinophils # 0.1 Eosinophils % 0.6 Globulin 3.00 Glucose Level 72 Hematocrit 35.3 L Hemoglobin 11.7 L Indirect Bilirubin 0.7 Lymphocytes # 1.7 Lymphocytes % 20.5 Mean Corpuscular Hemoglobin 26.8 L Mean Corpuscular Hemoglobin Concent 33.1 Mean Corpuscular Volume 80.8 L Mean Platelet Volume 10.8 H Monocytes # 0.4 Monocytes % 4.4 Neutrophils # 6.1 Neutrophils % 73.7 Nucleated Red Blood Cells # 0.0 Nucleated Red Blood Cells % 0.0 Platelet Count 274 Potassium Level 3.1 L Red Blood Count 4.37 L Red Cell Distribution Width 19.9 H Sodium Level 134 L Total Bilirubin 0.7 Total Protein 5.0 L White Blood Count 8.2 # Bedside Glucose 66 L 103 95 Test 08/13/16 12:07 08/13/16 17:05 Bedside Glucose 85 118 NGOC BARTON MD Aug 13, 2016 21:17
== END 2016-08-13 18:17 | disposition home or self-care (01) | DRG 291 ==
LOC: E/R 01:42 → ICU 08:32 → TEL 08-06 16:04 → MS2 08-09 19:44
PROVIDERS: ADMIT Internal Medicine Nephrology; ATTEND Internal Medicine Nephrology
DX: I13.0 Hypertensive heart and chronic kidney disease with heart failure and stage 1 through stage 4 chronic kidney disease, or unspecified chronic kidney disease (principal); I50.23 Acute on chronic systolic (congestive) heart failure; I47.2 Ventricular tachycardia; N17.9 Acute kidney failure, unspecified; D68.9 Coagulation defect, unspecified; K92.0 Hematemesis; E87.2 Acidosis; R65.10 Systemic inflammatory response syndrome (SIRS) of non-infectious origin without acute organ dysfunction; R18.8 Other ascites; E87.1 Hypo-osmolality and hyponatremia; J45.909 Unspecified asthma, uncomplicated; I42.7 Cardiomyopathy due to drug and external agent; E11.22 Type 2 diabetes mellitus with diabetic chronic kidney disease; F15.10 Other stimulant abuse, uncomplicated; F12.10 Cannabis abuse, uncomplicated; I27.2 Other secondary pulmonary hypertension; I25.2 Old myocardial infarction; N18.9 Chronic kidney disease, unspecified; Z86.74 Personal history of sudden cardiac arrest; E87.5 Hyperkalemia; E87.8 Other disorders of electrolyte and fluid balance, not elsewhere classified; I25.5 Ischemic cardiomyopathy; E11.43 Type 2 diabetes mellitus with diabetic autonomic (poly)neuropathy; K31.84 Gastroparesis; K76.89 Other specified diseases of liver; R19.5 Other fecal abnormalities; R74.8 Abnormal levels of other serum enzymes; Z87.891 Personal history of nicotine dependence; Z82.49 Family history of ischemic heart disease and other diseases of the circulatory system; Z83.3 Family history of diabetes mellitus; Z79.82 Long term (current) use of aspirin; Z79.4 Long term (current) use of insulin
CPT/HCPCS: 36415; 36600; 70450; 71010; 74176; 76705; 78452; 80048; 80053; 80061; 80306; 80307; 82270; 82550; 82553; 82803; 82962; 83036; 83605; 83735; 83880; 84100; 84484; 85014; 85018; 85025; 85610; 85730; 87081; 93005; 93017; 93306; 96365; 96366; 96375; 96376; 97162; 97530; J1940; A9500; A9505; C9113; J0282; J0696; J1200; J1630; J1815; J2270; J2405; J2785; J7030; J7040; J7070

== ENCOUNTER 2016-09-13 09:43 | Inpatient (IN) | payer OTHER ==
[~2016-09-13] VITALS: Ht 180.3 cm; Wt 92.4 kg
[~2016-09-13 09:43] MED LIST changes: +NIT4 SL
[2016-09-13] MEDS ORDERED: ASPIRIN 325 MG TAB PO STA (09:54)
[2016-09-13] MEDS ORDERED: DILTIAZEM 25 MG INJ IV ONE ×2 (10:00→11:00)
[2016-09-13] MEDS ORDERED: DILTIAZEM-D5W 125MG/125ML DRIP 125 ML IV SCH (10:00)
--- NOTE | 2016-09-13 10:27 | RADRPT ---
PROCEDURE: XR Chest. CLINICAL INDICATION: Chest pain TECHNIQUE: Single portable view of the chest was obtained COMPARISON: 08/11/2016 FINDINGS: The heart is enlarged. There is a left perihilar infiltrate. There is elevation of the right diaphragm. There is no pleural effusion or pneumothorax. RPTAT: AA IMPRESSION: Mild Cardiomegaly. New left perihilar infiltrate. .Domingo Omer MD, MD Date Time Electronically viewed and signed by .Domingo Omer MD, on 09/13/2016 10:27 .S/
[2016-09-13 10:28] LABS: ADD SCAN DIFF NO
[2016-09-13 10:32] LABS: BASOPHILS % 0.2 % (0.0-2.0); EOSINOPHILS % 0.3 % (0.0-7.0); HEMATOCRIT 37.3 % (42.0-52.0); HEMOGLOBIN 11.6 g/dl (14.0-18.0); LYMPHOCYTES # 1.1 10^3/ul (0.8-2.9); LYMPHOCYTES % 10.7 % (15.0-51.0); MEAN CORPUSCULAR HEMOGLOBIN 27.4 pg (29.0-33.0); MEAN CORPUSCULAR HGB CONC 31.1 g/dl (32.0-37.0); MEAN CORPUSCULAR VOLUME 88.2 fl (82.0-101.0); MONOCYTE # 0.6 10^3/ul (0.3-0.9); MONOCYTES % 5.6 % (0.0-11.0); NEUTROPHIL # 8.2 10^3/ul (1.6-7.5); NEUTROPHILS % 82.6 % (39.0-77.0); PLATELET COUNT 320 10^3/UL (140-415); RED BLOOD COUNT 4.23 10^6/ul (4.70-6.10); RED CELL DISTRIBUTION WIDTH 20.7 % (11.5-14.5)
[2016-09-13 10:38] LABS: POTASSIUM 4.4 mmol/L (3.5-5.1)
[2016-09-13 10:39] LABS: INR 1.32; PROTIME 16.5 Sec (12.2-14.2); PT RATIO 1.3
[2016-09-13 10:40] LABS: CREATININE 0.89 mg/dl (0.61-1.24); PARTIAL THROMBOPLASTIN TIME 29.3 Sec (25.0-35.0)
[2016-09-13 10:41] LABS: CALCIUM 9.4 mg/dl (8.4-10.2)
[2016-09-13 10:53] LABS: TROPONIN-I 0.056 ng/ml (0.00-0.12)
[2016-09-13] MEDS ORDERED: METOPROLOL 5 MG INJ IV ONE (11:00)
[2016-09-13] MEDS ORDERED: ONDANSETRON 4 MG INJ IV STA (11:19)
[2016-09-13] MEDS ORDERED: ONDANSETRON 4 MG INJ ONE (11:19)
[2016-09-13] MEDS ORDERED: CA CHLORIDE 10% 10 ML SYRINGE IV ONE (11:30)
[2016-09-13] MEDS ORDERED: SOD CHLORIDE 0.9% 1,000 ML IV ONE (14:00)
[2016-09-13] MEDS ORDERED: ONDANSETRON 4 MG INJ IV PRN ×2 (14:30→18:00)
[2016-09-13] MEDS ORDERED: ACETAMINOPHEN 325 MG TAB PO PRN ×2 (14:30→18:00)
[2016-09-13 15:26] VITALS: TEMP 98.1
--- NOTE | 2016-09-13 15:30 | ERA ---
ER Documentation Chief Complaint Date/Time DATE: 09/13/16 TIME: 15:20 Chief Complaint SOB, CHEST PAIN, COUGH, ONSET 2 DAYS HPI 51-year-old male presents with left-sided sharp nonradiating chest pain, palpitations, shortness of breath going on for 2 days. Patient has a history of irregular heartbeat. Says that he usually takes that sugar surface chest pain but have any. Also feels somewhat lightheaded. ROS All systems reviewed and are negative except as per history of present illness. Medications Home Meds Active Scripts Nitroglycerin* (Nitrostat*) 0.4 Mg Tab.subl, 1 TAB SL Q5M Y for CHEST PAIN for 28 Days Prov:ANDREAS FRANCISCO MD 08/09/16 Insulin Glargine* (Lantus*) 100 Unit/Ml Soln, 12 UNIT SC QHS, #1 VIAL Please dispense 15 syringes and needles. Prov:KACY JESSICA NP 04/10/16 Carvedilol* (Carvedilol*) 3.125 Mg Tablet, 3.125 MG PO BID, #30 TAB Prov:KACY JESSICA NP 04/10/16 Furosemide* (Furosemide*) 20 Mg Tablet, 20 MG PO BID, #30 TAB Prov:KACY JESSICA NP 04/10/16 Aspirin* (Aspirin* Chew) 81 Mg Tab.chew, 81 MG PO DAILY, #15 TAB.CHEW Prov:KACY JESSICA NP 04/10/16 Albuterol Sulfate* (Ventolin HFA*) 18 Gm Hfa.aer.ad, 2 PUFF INHALATION Q4H, #1 INHALER Prov:KACY JESSICA NP 04/10/16 Insulin Glargine* (Lantus*) 100 Unit/Ml Soln, 12 UNIT SC QHS, #1 VIAL Prov:PHILIPP YOUNG NP 02/11/16 Furosemide* (Lasix*) 20 Mg Tablet, 20 MG PO BID for 30 Days, TAB Prov:PHILIPP YOUNG NP 02/11/16 Aspirin (Aspirin) 81 Mg Chew, 81 MG PO DAILY for 30 Days, TAB Prov:PHILIPP YOUNG NP 02/11/16 Carvedilol* (Carvedilol*) 3.125 Mg Tablet, 3.125 MG PO BID for 30 Days, TAB Prov:PHILIPP YOUNG DEPUTY FIRE CHIEF 02/11/16 Reported Medications Albuterol Sulfate* (Ventolin HFA*) 18 Gm Hfa.aer.ad, 2 PUFF INHALATION Q4H, #1 INHALER 02/06/16 Mirtazapine* (Remeron*) 30 Mg Tablet, 30 MG PO BID, TAB 02/06/16 Fluoxetine Hcl* (Prozac*) 40 Mg Capsule, 80 MG PO BID, CAP 02/06/16 Allergies Allergies: Coded Allergies: erythromycin base (Verified Allergy, Unknown, hives, SOB, 04/10/16) PMhx/Soc History of Surgery: Yes Anesthesia Reaction: No Hx Neurological Disorder: Yes (Stroke) Hx Respiratory Disorders: Yes (Asthma) Hx Cardiac Disorders: Yes (Hypertension) Hx Psychiatric Problems: Yes (Bipolar, Schitzophrenia, anxiety, drug abuse) Hx Miscellaneous Medical Probl: Yes (systolic heart failure, cardiomyopathy, NSTEMI, CKD, transaninitis, DM) Hx Alcohol Use: Yes (occassional) Hx Substance Use: Yes (hx Methamphetamine use 1 year ago) Hx Tobacco Use: Yes Smoking Status: Former smoker Physical Exam Vitals Vital Signs Date Time Temp Pulse Resp B/P Pulse Ox O2 Delivery O2 Flow Rate FiO2 09/13/16 15:00 98.1 66 18 89/58 96 Room Air 09/13/16 13:15 61 18 88/65 94 Room Air 09/13/16 11:10 62 18 83/67 100 Nasal Cannula 2.0 09/13/16 10:52 89 18 104/90 100 Nasal Cannula 2.0 09/13/16 09:47 97.4 69 18 126/94 99 Physical Exam Const: [] No distress, appears uncomfortable Head: Atraumatic Eyes: Normal Conjunctiva ENT: Normal External Ears, Nose and Mouth. Neck: Full range of motion..~ No meningismus. Resp: Clear to auscultation bilaterally Cardio: Market regular tachycardia, no murmurs Abd: Soft, non tender, non distended. Normal bowel sounds Skin: No petechiae or rashes Back: No midline or flank tenderness Ext: No cyanosis, or edema Neur: Awake and alert and oriented 3, no focal deficits Psych: Normal Mood and Affect Result Diagram: 09/13/16 1010 09/13/16 1010 Results 24 hrs Laboratory Tests Test 09/13/16 10:10 White Blood Count 10.010^3/ul Red Blood Count 4.2310^6/ul Hemoglobin 11.6g/dl Hematocrit 37.3% Mean Corpuscular Volume 88.2fl Mean Corpuscular Hemoglobin 27.4pg Mean Corpuscular Hemoglobin Concent 31.1g/dl Red Cell Distribution Width 20.7% Platelet Count 87691^3/UL Mean Platelet Volume 10.0fl Neutrophils % 82.6% Lymphocytes % 10.7% Monocytes % 5.6% Eosinophils % 0.3% Basophils % 0.2% Nucleated Red Blood Cells % 0.0/100WBC Neutrophils # 8.210^3/ul Lymphocytes # 1.110^3/ul Monocytes # 0.610^3/ul Eosinophils # 0.010^3/ul Basophils # 0.010^3/ul Nucleated Red Blood Cells # 0.010^3/ul Prothrombin Time 16.5Sec Prothrombin Time Ratio 1.3 INR International Normalized Ratio 1.32 Activated Partial Thromboplast Time 29.3Sec Sodium Level 144mmol/L Potassium Level 4.4mmol/L Chloride Level 110mmol/L Carbon Dioxide Level 19mmol/L Anion Gap 19 Blood Urea Nitrogen 20mg/dl Creatinine 0.89mg/dl Glucose Level 114mg/dl Calcium Level 9.4mg/dl Troponin I 0.056ng/ml B-Type Natriuretic Peptide [id number]/ML Current Medications Medications (Trade) Dose Ordered Sig/Bradley Route PRN Reason Start Time Stop Time Status Last Admin Dose Admin Aspirin (Aspirin) 325 mg ONCE STAT PO 09/13/16 09:54 09/13/16 10:04 DC 09/13/16 10:18 Diltiazem HCl 20 mg 20 mg ONCE ONCE IV 09/13/16 10:00 09/13/16 10:04 DC 09/13/16 10:19 Diltiazem HCl (Cardizem-D5W 125 Mg/125 ml Drip) 125 ml @ 5 mls/hr TITRATE IV 09/13/16 10:00 09/13/16 10:19 Diltiazem HCl (Cardizem Iv) 30 mg ONCE ONCE IV 09/13/16 11:00 09/13/16 11:01 DC 09/13/16 10:47 Metoprolol Tartrate (Lopressor) 2.5 mg ONCE ONCE IV 09/13/16 11:00 09/13/16 11:01 DC 09/13/16 10:47 Calcium Chloride (Ca Chloride 10% Syg) 1,000 mg ONCE ONCE IV 09/13/16 11:30 09/13/16 11:31 DC 09/13/16 11:18 Ondansetron HCl (Zofran Inj) 4 mg ONCE STAT IV 09/13/16 11:19 09/13/16 11:20 DC 09/13/16 11:22 Ondansetron HCl 4 mg 4 mg STK-MED ONCE .ROUTE 09/13/16 11:19 09/13/16 11:20 DC Sodium Chloride (NS) 1,000 ml @ 1,000 mls/hr Q1H ONCE IV 09/13/16 14:00 09/13/16 14:59 DC 09/13/16 14:17 Ondansetron HCl (Zofran Inj) 4 mg ER BRIDGE PRN IV NAUSEA AND/OR VOMITING 09/13/16 14:30 09/14/16 14:29 Acetaminophen (Tylenol Tab) 650 mg ER BRIDGE PRN PO MILD PAIN/FEVER 09/13/16 14:30 09/14/16 14:29 Procedures/MDM A flutter with RVR and chest pain. Patient was given 325 mg of aspirin. He was then given a bolus of Cardizem 20 mg and placed on a Cardizem drip. This did not reduce his heart rate at all. An additional 30 mg which was just over 0.35/ kg of Cardizem was then given along with 2.5 mg of IV metoprolol. This did count the patient's heart rate to the 60s and he was still in a flutter. It also however did decrease his blood pressure significantly to a systolic of 80s over diastolic of high 60s to 70s. He was then given a liter of fluid and a calcium chloride IV bolus. He was also given a second liter fluid after which his blood pressure did normalize to a systolic of approximately 100. Chest pain shortness of breath and lightheadedness were also improved at that point. She doesn't have elevated ENT indicating increased stretch on the heartily has no arturo pulmonary edema on his chest x-ray. I'm going to admit him to telemetry. Patient also has anemia on Coumadin without any history of dark stools or rectal bleeding or vomiting blood. Spoke with Dr. Rodríguez, maintenance painter on the phone. Also spoke with Dr. Francisco who will be admitting the patient to telemetry. EKG interpretation #1: A flutter with RVR, rate of 134, left axis deviation, lateral biphasic T waves possibly concerning for ischemia otherwise no ST elevations or depressions concerning for acute ischemia EKG interpretation #2: A flutter with 4-1 conduction, left axis deviation, still with inverted T waves in lateral leads concerning for possible ischemia. Chest x-ray interpretation: I see no acute process, no pulmonary edema, no pneumothorax, no widened mediastinum, no fractures satellite project site monitor interpretation: Initial a flutter with RVR transition to rate controlled a flutter and rate of 60s with no other arrhythmias Critical care time 44 minutes: This includes treatment of a flutter with RVR with concomitant chest pain, use of Bactrim as a medication Cardizem and metoprolol, careful fluid administration with hypotension having resulted from Cardizem, use of calcium chloride, multiple visits the patient's bedside to reassess his status, chart review, discussion with maintenance painter and admitting doctor. This did not include any billable procedures Departure Diagnosis: Primary Impression: Atrial flutter with rapid ventricular response Additional Impressions: Chest pain Elevated brain natriuretic peptide (BNP) level Normocytic anemia Hypotension Subtherapeutic international normalized ratio (INR) Condition: Serious LEONELRUSHPOLINA DO Sep 13, 2016 15:30
[2016-09-13 15:34] LABS: CK-MB 3.82 ng/ml (0.0-2.4)
[2016-09-13 15:37] LABS: TROPONIN-I 0.073 ng/ml (0.00-0.12)
[2016-09-13 16:04] VITALS: PULSE 68
[2016-09-13 16:08] VITALS: Ht 180.3 cm; Wt 92.4 kg
[2016-09-13 16:12] VITALS: BP 91/62; PULSE 64; RESP 22
[2016-09-13] MEDS ORDERED: LISINOPRIL 5 MG TAB PO ONE (17:00)
[2016-09-13] MEDS ORDERED: DILTIAZEM 25 MG INJ IV PRN (17:00)
[2016-09-13] MEDS: INSULIN ASPART [NOVOLOG] 3 ML PEN SC SCH ×2 (17:55→21:00)
[2016-09-13] MEDS ORDERED: DEXTROSE 50% 50 ML SYRINGE IV PRN ×2 (18:00)
[2016-09-13] MEDS ORDERED: BISACODYL (EC) 5 MG TAB PO PRN (18:00)
[2016-09-13] MEDS ORDERED: GLUCOSE GEL 15 GRAM TUBE PO PRN ×2 (18:00)
[2016-09-13] MEDS ORDERED: ALBUTEROL HFA 8 GM INHALER INH SCH (18:00)
[2016-09-13] MEDS ORDERED: NITROGLYCERIN (SL) 0.4 MG TAB SL PRN (18:00)
[2016-09-13] MEDS ORDERED: MAGNESIUM HYDROXIDE 30ML CUP PO PRN (18:00)
[2016-09-13] MEDS ORDERED: Discontinue Glyburide, Glipizide, and/or Glimepiride prior to starting Insulin XX ONE (18:00)
[2016-09-13] MEDS ORDERED: GLUCAGON 1 MG INJ IM PRN (18:00)
[2016-09-13] MEDS ORDERED: NACL 0.9% 3 ML SYG IV SCH (18:00)
[2016-09-13] MEDS ORDERED: GLUCOSE GEL 15 GRAM TUBE BUCCAL PRN (18:00)
[2016-09-13] MEDS ORDERED: HYPOGLYCEMIA PROTOCOL when Glucose is <70 mg/dL or symptomatic <90 mg/dL. XX ONE (18:00)
[2016-09-13] MEDS ORDERED: DOCUSATE SODIUM 100 MG CAP PO PRN (18:00)
[2016-09-13] MEDS: DIGOXIN 500 MCG INJ IV SCH (18:08)
--- NOTE | 2016-09-13 18:22 | CONS ---
DATE OF ADMISSION: 09/13/2016 DATE OF CONSULTATION: 09/13/2016 TYPE OF CONSULTATION: Cardiology. REASON FOR CONSULTATION: Shortness of breath, congestive heart failure, cardiomyopathy, atrial flut ter. REQUESTING PHYSICIAN: Richard Francisco MD. HISTORY OF PRESENT ILLNESS: Mr. Hopkins is a 51-year-old male with a history of severely depresse d ejection fraction, last only approximately 25% by echo 02/2016 with a Lexiscan negative for ischem ia with EF 14%, congestive heart failure, hypertension and substance abuse, ventricular tachycardia, prior cardiac arrest who initially presented with complaints of shortness of breath. Upon arrival, the patient was noted to be in atrial flutter, rate controlled. The patient had complaints of shor tness of breath, denied chest pain. The patient's temperature was 97.4, blood pressure 126/94, puls e 69, respiratory rate 18, saturating 99%. The patient's labs revealed a white count 10.0, hemoglob in 11.6, platelet count 320. Sodium 144, potassium 4.4, creatinine 0.89, BUN 20. Troponin negative . BNP 21,200. INR of 1.32. The patient underwent a chest x-ray revealing mild cardiomegaly and le ft perihilar infiltrate. The patient's labs notable additionally for an elevated BNP. The patient has no electrocardiogram in the chart for my review at this time. The patient admitted to the floor . PAST MEDICAL HISTORY: As above in HPI with the patient's most recent echo 08/2016 revealing an EF o f 20%, with RV systolic dysfunction, moderate tricuspid regurgitation and trace mitral regurgitation . MEDICATIONS CURRENTLY IN HOSPITAL: 1. Zofran. 2. Tylenol. 3. Diltiazem IV. MEDICATIONS PRIOR TO ADMIT: 1. Carvedilol. 2. Aspirin. 3. Lasix 20 mg p.o. b.i.d. ALLERGIES: ERYTHROMYCIN BASE. SOCIAL HISTORY: No tobacco, ETOH or illicit drug use. FAMILY HISTORY: No history of cardiac or early CAD. REVIEW OF SYSTEMS: As above in HPI. CONSTITUTIONAL: No fevers, chills. PULMONARY: Shortness of breath. CARDIOVASCULAR: Cardiomyopathy. GASTROINTESTINAL: No vomiting. GENITOURINARY: No hematuria. MUSCULOSKELETAL: Degenerative joint disease. PSYCHIATRIC: The patient has depression. NEUROLOGIC: No documented CVA in the past. PHYSICAL EXAMINATION: VITAL SIGNS: Temperature 98.7, blood pressure 91/62, pulse 64, respiratory rate 22, saturating 95%. GENERAL: The patient is alert, awake, complaining of shortness of breath. NECK: JVP approximately 9 cm of water. CHEST: Decreased breath sounds at bases bilaterally. HEART: Regular rate and rhythm. Normal S1, S2. Laterally displaced PMI. A I/ systolic murmur. ABDOMEN: Positive bowel sounds, soft. EXTREMITIES: No pitting edema, 1+ pulses bilaterally, posterior tibial. LABORATORY DATA: Today, white count 10.0, hemoglobin 11.6, platelet count 320. Sodium 144, potassi um 4.4, creatinine of 0.89, BUN 20. Troponin negative. IMAGING STUDIES: As above in HPI. No further imaging studies for my review at this time. ECG: No further electrocardiograms for my review at this time. IMPRESSION: 1. Atrial flutter with rapid ventricular response, currently rate controlled on diltiazem drip. 2. Hypotension, borderline. 3. Cardiomyopathy with severely depressed left ventricular ejection fraction, last being approximat thiago 20% by echo. 4. Increased BNP consistent with congestive heart failure in 20,000. 5. Anemia. 6. History of substance abuse. 7. History of ventricular tachycardia. RECOMMENDATIONS: 1. At this time, would maintain the patient on telemetry monitoring to follow rhythm and rate contr ol closely. 2. Would give patient digoxin loading to improve heart rate control and thereafter wean off diltiaz em and possible. 3. We will continue the patient's low dose beta isis as tolerated and will write the patient for a low dose LAURA inhibitor, following blood pressure closely with close hold parameters. 4. Follow the patient's volume status closely with probable need for gentle Lasix diuresis. Thank you for allowing me to take part in the care of this patient. I will continue to follow along very closely with you. Further recommendations will be made as the patient progresses through his inpatient hospital clinical course. Dictated By: DEXTER VERDUZCO/EDILIA Conf#: [id number] DID#: [id number] CC: RICHARD FRANCISCO MD;*EndCC*
[2016-09-13 20:33] VITALS: PULSE 106
[2016-09-13] MEDS ORDERED: FUROSEMIDE 20 MG TAB PO SCH (21:00)
[2016-09-13] MEDS: INSULIN GLARGINE [LANtus] 3 ML PEN SC SCH (21:00)
[2016-09-13] MEDS ORDERED: INSULIN GLARGINE [LANtus] 3 ML PEN SC SCH (21:00)
[2016-09-13 22:06] VITALS: BP 121/86; PULSE 119; RESP 16
[2016-09-13] MEDS: AMIODARONE 200 MG TAB PO SCH (22:10)
[2016-09-13] MEDS: FUROSEMIDE 20 MG TAB PO SCH (22:11)
[2016-09-13] MEDS: ENOXAPARIN 100 MG/ML SYG SC SCH (22:21)
[2016-09-13 22:37] LABS: CK-MB 4.02 ng/ml (0.0-2.4)
--- NOTE | 2016-09-13 22:50 | QN ---
Documentation Comment [id number] ANDREAS FRANCISCO MD Sep 13, 2016 22:50
[2016-09-13 22:56] LABS: TROPONIN-I 0.036 ng/ml (0.00-0.12)
[2016-09-14] VITALS (13 sets, daily range): BP systolic 105–120; BP diastolic 60–80; PULSE 92–164; RESP 18–24
[2016-09-14] MEDS: DIGOXIN 500 MCG INJ IV SCH ×2 (00:21→06:02)
[2016-09-14] MEDS: ACCU-CHEK XX SCH (02:00)
--- NOTE | 2016-09-14 02:49 | HP ---
DATE OF ADMISSION: 09/13/2016 HISTORY OF PRESENT ILLNESS: The patient is a 51-year-old male who has a history of cardiac arrhythmias status post V-tach, hypertension, hyperkalemia, CKD, ascites, history of drug abuse, systolic heart failure, GI bleed, lactic acidosis, abnormal LFTs, presented with palpitation and in the ER noted to have left-sided sharp pain, palpitations, shortness of breath, noted to have A. flutter with rapid ventricular response and is being admitted for further management. Patient diagnoses include atrial flutter with rapid ventricular response. ALLERGY HISTORY: -see list SOCIAL HISTORY: Drug abuse, smoking in the past, which he has stopped now. FAMILY HISTORY: Noncontributory at this point. MEDICATION HISTORY: The patient is on albuterol, aspirin, Coreg, fluoxetine, Prozac, insulin, Mirtazapine, nitroglycerin. CURRENT MEDICATIONS: Amiodarone, aspirin, , Coreg, digoxin, docusate sodium, Lovenox, Lasix, Zofran, Protonix, Mirtazapine, _. REVIEW OF SYSTEMS: HEENT: Unremarkable. RESPIRATORY: Short of breath. CARDIOVASCULAR: S1, S2. _ palpitations. LUNGS: Clear. ABDOMEN: Unremarkable. EXTREMITIES: positive_ edema. PHYSICAL EXAMINATION: GENERAL: The patient is awake, but falls asleep. VITAL SIGNS: Pulse 61, blood pressure 91/62. HEENT: HEAD: Atraumatic and normocephalic. Pupils no pallor, equal and reactive. NECK: Supple, no JVD. LUNGS: Clear. CARDIOVASCULAR: S1, S2 normal. Systolic murmur noted. ABDOMEN: Soft, distended, bowel sounds present. No palpable mass. EXTREMITIES: No cyanosis, clubbing. Trace edema. CENTRAL NERVOUS SYSTEM: The patient is awake, alert, no focal deficit. LABORATORY DATA: WBC 10, hematocrit 37.2, platelet count 320. The patient's _ level was 44, normal 45. Sodium 142, potassium 4.4. EKG shows mild cardiomegaly, new left _ infiltrate. IMPRESSION: Atrial flutter, rapid ventricular response, l rule out ischemic heart disease. Patient has cardiac arrhythmia, history of hypertension, history of chronic kidney disease, history of ascites, history of , history of drug abuse, history of systolic heart failure, history of gastrointestinal bleed , history of lactic acidosis, history of abnormal LFTs. PLAN: To obtain cardiology consultation. Continue home medications, , that will also be monitored. Orders were done. Dictated By: ANDREAS DIA/NTS Conf#: [id number] DID#: [id number] MTDD
[2016-09-14] MEDS: PANTOPRAZOLE (EC) 40 MG TAB PO SCH (06:02)
[2016-09-14] MEDS: INSULIN ASPART [NOVOLOG] 3 ML PEN SC SCH ×4 (07:55→21:00)
[2016-09-14] MEDS: ASPIRIN 81 MG TAB PO SCH (08:38)
[2016-09-14] MEDS: AMIODARONE 200 MG TAB PO SCH ×3 (08:39→21:51)
[2016-09-14] MEDS: FUROSEMIDE 20 MG TAB PO SCH ×2 (08:40→21:52)
[2016-09-14] MEDS: ENOXAPARIN 100 MG/ML SYG SC SCH ×2 (08:43→22:05)
[2016-09-14] MEDS ORDERED: ENOXAPARIN 40 MG/0.4 ML SYG SC SCH (09:00)
[2016-09-14] MEDS ORDERED: ASPIRIN 81 MG TAB PO SCH (09:00)
[2016-09-14 10:18] LABS: ADD SCAN DIFF NO
[2016-09-14 10:33] LABS: BASOPHILS % 0.2 % (0.0-2.0); EOSINOPHILS % 0.1 % (0.0-7.0); HEMATOCRIT 34.2 % (42.0-52.0); HEMOGLOBIN 10.3 g/dl (14.0-18.0); LYMPHOCYTES # 0.7 10^3/ul (0.8-2.9); LYMPHOCYTES % 7.6 % (15.0-51.0); MEAN CORPUSCULAR HEMOGLOBIN 26.8 pg (29.0-33.0); MEAN CORPUSCULAR HGB CONC 30.1 g/dl (32.0-37.0); MEAN CORPUSCULAR VOLUME 88.8 fl (82.0-101.0); MEAN PLATELET VOLUME 10.4 fl (7.4-10.4); MONOCYTE # 0.4 10^3/ul (0.3-0.9); MONOCYTES % 4.5 % (0.0-11.0); NEUTROPHILS % 86.5 % (39.0-77.0); NUCLEATED RED BLOOD CELLS # 0.1 10^3/ul (0.0-0.0); NUCLEATED RED BLOOD CELLS% 0.5 /100WBC (0.0-0.0); PLATELET COUNT 289 10^3/UL (140-415); RED BLOOD COUNT 3.85 10^6/ul (4.70-6.10); RED CELL DISTRIBUTION WIDTH 21.5 % (11.5-14.5); WHITE BLOOD COUNT 9.2 10^3/ul (4.8-10.8)
[2016-09-14 10:51] LABS: ALBUMIN 2.7 g/dl (3.3-4.9); POTASSIUM 4.7 mmol/L (3.5-5.1)
[2016-09-14 10:53] LABS: ALBUMIN/GLOBULIN RATIO 0.81; BILIRUBIN,INDIRECT 0.7 mg/dl (0-1.1); BILIRUBIN,TOTAL 0.7 mg/dl (0.2-1.3); CREATININE 1.12 mg/dl (0.61-1.24)
[2016-09-14 10:54] LABS: CALCIUM 8.8 mg/dl (8.4-10.2)
--- NOTE | 2016-09-14 11:57 | CONS ---
Date/Time of Note Date/Time of Note DATE: 09/14/16 TIME: 11:54 Assessment/Plan Assessment/Plan Chief Complaint/Hosp Course IMPRESSION: 1. Atrial flutter with rapid ventricular response-now rate controlled on BB 2. Hypotension-stable to improved 3. Cardiomyopathy with severely depressed left ventricular ejection fraction, last being approximately 20% by echo. Negative troponin x 3 4. Increased BNP consistent with congestive heart failure in 20,000. 5. Anemia. 6. History of substance abuse. 7. History of ventricular tachycardia. Recc: -Tele -serial ecg's -Continue coreg -start PO digoxin -Continue lasix and follow volume status closely -Resume low dose ACEI afterload reduction Problems: Consultation Date/Type/Reason Admit Date/Time Sep 13, 2016 at 14:27 Initial Consult Date 09/13/2016 Type of Consultation: Cardiology Reason for Consultation cardiomyopathy/CHF Referring Provider: ANDREAS FRANCISCO MD Exam/Review of Systems Vital Signs Vitals Vital Signs Date Time Temp Pulse Resp B/P Pulse Ox O2 Delivery O2 Flow Rate FiO2 09/14/16 09:48 129 09/14/16 08:24 97.3 18 109/75 92 Room Air 09/13/16 11:10 2.0 Intake and Output 09/13/16 09/13/16 09/14/16 15:00 23:00 07:00 Intake Total 400 ml Balance 400 ml Exam Review of Systems: CONSTITUTIONAL: No fevers, chills. PULMONARY: mild sob CARDIOVASCULAR: No chest pain/palpitations GASTROINTESTINAL: No nausea/vomiting. GENITOURINARY: No hematuria/dysuria. MUSCULOSKELETAL: No myagias/arthalgias. PSYCHIATRIC: The patient denies depression. NEUROLOGIC: generalized weakness Constitutional: alert Psych: no complaints Head: normocephalic ENMT: mucosa pink and moist Neck: jvd (9 cm water), supple Respiratory: diminished breath sounds (at bases/B) Cardiovascular: regular rate and rhythm Gastrointestinal: non-tender, soft Musculoskeletal: muscle tone (normal) Extremities: edema (none) Neurological: other (No focal deficits) Results Result Diagram: 09/14/16 1010 09/14/16 1010 Results 24 hrs Laboratory Tests Test 09/13/16 15:05 09/13/16 18:14 09/13/16 18:15 09/13/16 18:16 Creatine Kinase 115 Creatine Kinase Index 3.3 Creatinine Kinase MB (Mass) 3.82 H Troponin I 0.073 0.053 Bedside Glucose 46 *L 44 *L Test 09/13/16 18:28 09/13/16 18:53 09/13/16 21:55 09/13/16 21:59 Bedside Glucose 41 *L 103 145 Creatine Kinase 96 Creatine Kinase Index 4.2 Creatinine Kinase MB (Mass) 4.02 H Troponin I 0.036 Test 09/14/16 04:39 09/14/16 08:28 09/14/16 10:00 09/14/16 10:10 Bedside Glucose 105 113 Troponin I 0.055 White Blood Count 9.2 Red Blood Count 3.85 L Hemoglobin 10.3 L Hematocrit 34.2 L Mean Corpuscular Volume 88.8 Mean Corpuscular Hemoglobin 26.8 L Mean Corpuscular Hemoglobin Concent 30.1 L Red Cell Distribution Width 21.5 H Platelet Count 289 Mean Platelet Volume 10.4 Neutrophils % 86.5 H Lymphocytes % 7.6 L Monocytes % 4.5 Eosinophils % 0.1 Basophils % 0.2 Nucleated Red Blood Cells % 0.5 H Neutrophils # 8.0 H Lymphocytes # 0.7 L Monocytes # 0.4 Eosinophils # 0.0 Basophils # 0.0 Nucleated Red Blood Cells # 0.1 H Sodium Level 138 Potassium Level 4.7 Chloride Level 107 Carbon Dioxide Level 22 Anion Gap 14 Blood Urea Nitrogen 29 H Creatinine 1.12 Glucose Level 100 Calcium Level 8.8 Total Bilirubin 0.7 Direct Bilirubin 0.00 Indirect Bilirubin 0.7 Aspartate Amino Transf (AST/SGOT) 62 H Alanine Aminotransferase (ALT/SGPT) 33 Alkaline Phosphatase 60 Total Protein 6.0 L Albumin 2.7 L Globulin 3.30 H Albumin/Globulin Ratio 0.81 Medications Medications Current Medications Carvedilol (Coreg) 3.125 mg BID PO Last administered on 09/14/16 08:40; Admin Dose 3.125 MG; Start 09/13/16 at 21:00 Diltiazem HCl (Cardizem Iv) 5 mg Q4H PRN IV HR>110 Hold SBP<100; Start 09/13/16 at 17:00 Enoxaparin Sodium (Lovenox) 90 mg Q12 SC Last administered on 09/14/16 08:43; Admin Dose 90 MG; Start 09/13/16 at 21:00 Amiodarone HCl (Cordarone) 200 mg TID PO Last administered on 09/14/16 08:39; Admin Dose 200 MG; Start 09/13/16 at 21:00 Albuterol (Ventolin Hfa) 2 puff Q4H INH ; Start 09/13/16 at 18:00 Aspirin (Aspirin) 81 mg DAILY PO Last administered on 09/14/16 08:38; Admin Dose 81 MG; Start 09/14/16 at 09:00 Fluoxetine HCl (Prozac) 80 mg BID PO ; Start 09/13/16 at 21:00; Status UNV Furosemide (Lasix) 20 mg BID PO Last administered on 09/14/16 08:40; Admin Dose 20 MG; Start 09/13/16 at 21:00 Insulin Glargine (Lantus) 12 unit QHS SC ; Start 09/13/16 at 21:00 Mirtazapine (Remeron) 30 mg BID PO ; Start 09/13/16 at 21:00; Status UNV Nitroglycerin (Nitroglycerin (Sl Tab) 0.4 Mg) 1 tab Q5M PRN SL CHEST PAIN; Start 09/13/16 at 18:00 Ondansetron HCl (Zofran Inj) 4 mg Q6H PRN IV NAUSEA AND/OR VOMITING; Start 09/13 at 18:00 Acetaminophen (Tylenol Tab) 650 mg Q6H PRN PO PAIN LEVEL 1-3 OR FEVER; Start at 18:00 Docusate Sodium (Colace) 100 mg Q12H PRN PO CONSTIPATION; Start 09/13/16 at 18: 00 Magnesium Hydroxide (Milk Of Mag) 30 ml DAILY PRN PO CONSTIPATION; Start at 18:00 Bisacodyl (Dulcolax) 5 mg DAILY PRN PO CONSTIPATION; Start 09/13/16 at 18:00 Pantoprazole (Protonix Tab) 40 mg DAILY@06 PO Last administered on 09/14/16 06 :02; Admin Dose 40 MG; Start 09/14/16 at 06:00 Diagnostic Test (Pha) (Accu-Chek) 1 ea 02 XX ; Start 09/14/16 at 02:00 Miscellaneous Information 1 ea NOTE XX ; Start 4/9/17 at 18:00 Glucose (Glutose) 15 gm Q15M PRN PO DECREASED GLUCOSE; Start 09/13/16 at 18:00 Glucose (Glutose) 22.5 gm Q15M PRN PO DECREASED GLUCOSE; Start 09/13/16 at 18:00 Dextrose (D50w Syringe) 25 ml Q15M PRN IV DECREASED GLUCOSE; Start 09/13/16 at 18:00 Dextrose (D50w Syringe) 50 ml Q15M PRN IV DECREASED GLUCOSE Last administered on 09/13/16t 18:33; Admin Dose 50 ML; Start 09/13/16 at 18:00 Glucagon (Glucagen) 1 mg Q15M PRN IM DECREASED GLUCOSE; Start 09/13/16 at 18:00 Glucose (Glutose) 15 gm Q15M PRN BUCCAL DECREASED GLUCOSE; Start 09/13/16 at 18: 00 Zolpidem Tartrate (Ambien) 5 mg HS PRN PO INSOMNIA; Start 09/14/16 at 00:00 DEXTER ZAMORANO Sep 14, 2016 11:57
[2016-09-14] MEDS ORDERED: DIGOXIN 500 MCG INJ IV ONE (12:00)
[2016-09-14] MEDS: LISINOPRIL 5 MG TAB PO SCH (12:46)
[2016-09-14] MEDS: ALBUTEROL HFA 8 GM INHALER INH SCH ×3 (16:35→22:00)
[2016-09-14] MEDS: INSULIN GLARGINE [LANtus] 3 ML PEN SC SCH (21:00)
[2016-09-14] MEDS: ZOLPIDEM 5 MG TAB PO PRN (21:51)
--- NOTE | 2016-09-14 22:55 | PN ---
Date/Time of Note Date/Time of Note DATE: 09/14/16 TIME: 22:53 Assessment/Plan VTE Prophylaxis VTE Prophylaxis Intervention: other Lines/Catheters IV Catheter Type (from Nrs): Saline Lock Assessment/Plan Chief Complaint/Hosp Course IMPRESSION: Atrial flutter, rapid ventricular response, l rule out ischemic heart disease. Patient has cardiac arrhythmia, history of hypertension, history of chronic kidney disease, history of ascites, history of , history of drug abuse, history of systolic heart failure, history of gastrointestinal bleed , history of lactic acidosis, history of abnormal LFTs. plan per dr carter Problems: Subjective 24 Hr Interval Summary Respiratory: shortness of breath (better) Cardiovascular: no complaints Exam/Review of Systems Vital Signs Vitals Vital Signs Date Time Temp Pulse Resp B/P Pulse Ox O2 Delivery O2 Flow Rate FiO2 09/14/16 21:40 164 09/14/16 20:33 98.2 20 120/60 98 09/14/16 12:38 Room Air 09/13/16 11:10 2.0 Intake and Output 09/13/16 09/13/16 09/14/16 15:00 23:00 07:00 Intake Total 400 ml Balance 400 ml Exam Neck: supple Respiratory: clear to auscultation Cardiovascular: regular rate and rhythm Gastrointestinal: bowel sounds (+), soft Results Result Diagram: 09/14/16 1010 09/14/16 1010 Results 24 hrs Laboratory Tests Test 09/14/16 04:39 09/14/16 08:28 09/14/16 10:00 09/14/16 10:10 Bedside Glucose 105 113 Troponin I 0.055 White Blood Count 9.2 Red Blood Count 3.85 L Hemoglobin 10.3 L Hematocrit 34.2 L Mean Corpuscular Volume 88.8 Mean Corpuscular Hemoglobin 26.8 L Mean Corpuscular Hemoglobin Concent 30.1 L Red Cell Distribution Width 21.5 H Platelet Count 289 Mean Platelet Volume 10.4 Neutrophils % 86.5 H Lymphocytes % 7.6 L Monocytes % 4.5 Eosinophils % 0.1 Basophils % 0.2 Nucleated Red Blood Cells % 0.5 H Neutrophils # 8.0 H Lymphocytes # 0.7 L Monocytes # 0.4 Eosinophils # 0.0 Basophils # 0.0 Nucleated Red Blood Cells # 0.1 H Sodium Level 138 Potassium Level 4.7 Chloride Level 107 Carbon Dioxide Level 22 Anion Gap 14 Blood Urea Nitrogen 29 H Creatinine 1.12 Glucose Level 100 Calcium Level 8.8 Total Bilirubin 0.7 Direct Bilirubin 0.00 Indirect Bilirubin 0.7 Aspartate Amino Transf (AST/SGOT) 62 H Alanine Aminotransferase (ALT/SGPT) 33 Alkaline Phosphatase 60 Total Protein 6.0 L Albumin 2.7 L Globulin 3.30 H Albumin/Globulin Ratio 0.81 Test 09/14/16 12:14 09/14/16 17:25 09/14/16 21:44 Bedside Glucose 89 77 92 Medications Medications Current Medications Carvedilol (Coreg) 3.125 mg BID PO Last administered on 09/14/16 21:51; Admin Dose 3.125 MG; Start 09/13/16 at 21:00 Diltiazem HCl (Cardizem Iv) 5 mg Q4H PRN IV HR>110 Hold SBP<100 Last administered on 09/14/16 19:50; Admin Dose 5 MG; Start 09/13/16 at 17:00 Enoxaparin Sodium (Lovenox) 90 mg Q12 SC Last administered on 09/14/16 22:05; Admin Dose 90 MG; Start 09/13/16 at 21:00 Amiodarone HCl (Cordarone) 200 mg TID PO Last administered on 09/14/16 21:51; Admin Dose 200 MG; Start 09/13/16 at 21:00 Albuterol (Ventolin Hfa) 2 puff Q4H INH Last administered on 09/14/16 17:26; Admin Dose 2 PUFF; Start 09/13/16 at 18:00 Aspirin (Aspirin) 81 mg DAILY PO Last administered on 09/14/16 08:38; Admin Dose 81 MG; Start 09/14/16 at 09:00 Fluoxetine HCl (Prozac) 80 mg BID PO ; Start 09/13/16 at 21:00; Status UNV Furosemide (Lasix) 20 mg BID PO Last administered on 09/14/16 21:52; Admin Dose 20 MG; Start 09/13/16 at 21:00 Insulin Glargine (Lantus) 12 unit QHS SC ; Start 09/13/16 at 21:00 Mirtazapine (Remeron) 30 mg BID PO ; Start 09/13/16 at 21:00; Status UNV Nitroglycerin (Nitroglycerin (Sl Tab) 0.4 Mg) 1 tab Q5M PRN SL CHEST PAIN; Start 09/13/16 at 18:00 Ondansetron HCl (Zofran Inj) 4 mg Q6H PRN IV NAUSEA AND/OR VOMITING; Start 09/13 at 18:00 Acetaminophen (Tylenol Tab) 650 mg Q6H PRN PO PAIN LEVEL 1-3 OR FEVER; Start at 18:00 Docusate Sodium (Colace) 100 mg Q12H PRN PO CONSTIPATION; Start 09/13/16 at 18: 00 Magnesium Hydroxide (Milk Of Mag) 30 ml DAILY PRN PO CONSTIPATION; Start at 18:00 Bisacodyl (Dulcolax) 5 mg DAILY PRN PO CONSTIPATION; Start 09/13/16 at 18:00 Pantoprazole (Protonix Tab) 40 mg DAILY@06 PO Last administered on 09/14/16 06 :02; Admin Dose 40 MG; Start 09/14/16 at 06:00 Diagnostic Test (Pha) (Accu-Chek) 1 ea 02 XX ; Start 09/14/16 at 02:00 Miscellaneous Information 1 ea NOTE XX ; Start 09/13/16 at 18:00 Glucose (Glutose) 15 gm Q15M PRN PO DECREASED GLUCOSE; Start 09/13/16 at 18:00 Glucose (Glutose) 22.5 gm Q15M PRN PO DECREASED GLUCOSE; Start 09/13/16 at 18:00 Dextrose (D50w Syringe) 25 ml Q15M PRN IV DECREASED GLUCOSE; Start 09/13/16 at 18:00 Dextrose (D50w Syringe) 50 ml Q15M PRN IV DECREASED GLUCOSE Last administered on 09/13/16 18:33; Admin Dose 50 ML; Start 09/13/16 at 18:00 Glucagon (Glucagen) 1 mg Q15M PRN IM DECREASED GLUCOSE; Start 09/13/16 at 18:00 Glucose (Glutose) 15 gm Q15M PRN BUCCAL DECREASED GLUCOSE; Start 09/13/16 at 18: 00 Zolpidem Tartrate (Ambien) 5 mg HS PRN PO INSOMNIA Last administered on 21:51; Admin Dose 5 MG; Start 09/14/16 at 00:00 Digoxin (Digoxin) 125 mcg DAILY@13 IV ; Start 09/15/16 at 13:00 Lisinopril (Zestril) 2.5 mg DAILY PO Last administered on 09/14/16t 12:46; Admin Dose 2.5 MG; Start 09/14/16 at 13:00 ANDREAS FRANCISCO MD Sep 14, 2016 22:55
[2016-09-15] VITALS (13 sets, daily range): BP systolic 96–124; BP diastolic 51–70; PULSE 82–107; RESP 17–19
[2016-09-15] MEDS: ACCU-CHEK XX SCH (02:00)
[2016-09-15] MEDS: ALBUTEROL HFA 8 GM INHALER INH SCH ×6 (02:00→21:17)
[2016-09-15] MEDS: PANTOPRAZOLE (EC) 40 MG TAB PO SCH (06:49)
[2016-09-15 07:28] LABS: CHOL/HDL RATIO 5.6 RATIO
[2016-09-15] MEDS: INSULIN ASPART [NOVOLOG] 3 ML PEN SC SCH ×4 (07:55→21:00)
[2016-09-15] MEDS: ASPIRIN 81 MG TAB PO SCH (08:25)
[2016-09-15] MEDS: AMIODARONE 200 MG TAB PO SCH ×3 (08:26→21:07)
[2016-09-15] MEDS: LISINOPRIL 5 MG TAB PO SCH (08:27)
[2016-09-15] MEDS: ENOXAPARIN 100 MG/ML SYG SC SCH ×2 (08:28→21:10)
[2016-09-15] MEDS: FUROSEMIDE 20 MG TAB PO SCH ×2 (08:30→21:06)
[2016-09-15] MEDS: DIGOXIN 500 MCG INJ IV SCH (12:16)
--- NOTE | 2016-09-15 16:47 | CONS ---
Date/Time of Note Date/Time of Note DATE: 09/15/16 TIME: 16:43 Assessment/Plan Assessment/Plan Additional Assessment/Plan 1. Atrial flutter with rapid ventricular response-now rate controlled on BB - rate well controlled now 2. Hypotension-stable to improved- not in CHF by exam - hold lasix / bolus 500 cc now / CXR to follow 3. Cardiomyopathy with severely depressed left ventricular ejection fraction, last being approximately 20% by echo. Negative troponin x 3 4. Increased BNP consistent with congestive heart failure in 20,000. 5. Anemia. 6. History of substance abuse. 7. History of ventricular tachycardia- a. fl now - will adjust Rx. Consultation Date/Type/Reason Admit Date/Time Sep 13, 2016 at 14:27 Initial Consult Date Type of Consultation: Cardiology Referring Provider: ANDREAS FRANCISCO MD 24 HR Interval Summary Free Text/Dictation No acute events - BP on low side - will hold lasix and bolus NS 500 cc - follow CXR now - rate well controlled. ROS: No fever, no chills, no nausea, no vomiting, no diarrhea/constipation No recent weight changes No chest pain, no PND, no orthopnea No dizziness, blurred vision No thirst, no heat or cold intolerance (tired) Exam/Review of Systems Vital Signs Vitals Vital Signs Date Time Temp Pulse Resp B/P Pulse Ox O2 Delivery O2 Flow Rate FiO2 09/15/16 16:24 86 09/15/16 15:37 98.6 17 103/59 91 09/14/16 12:38 Room Air 09/13/16 11:10 2.0 Intake and Output 09/14/16 09/14/16 09/15/16 15:00 23:00 07:00 Intake Total 800 ml Balance 800 ml Exam General: WN/WD/NAD, AO x 3 HEENT: Unicetric/atraumatic/EOMI (t follow commands) NECK: JVD elevated, no thyromegaly Lymph: no lymphadenopathy HEART: regular with no S3, II/ systolic murmur at apex LUNGS: Coarse sounds ABD: soft, NT, ND, +BS : Intact Neuro: non focal SKIN: chronic changes EXT: trace edema Results Result Diagram: 09/14/16 1010 09/14/16 1010 Results 24 hrs Laboratory Tests Test 09/14/16 17:25 09/14/16 21:44 09/15/16 06:23 09/15/16 07:28 Bedside Glucose 77 92 75 Triglycerides Level 65 Cholesterol Level 118 LDL Cholesterol, Calculated 84 HDL Cholesterol 21 L Cholesterol/HDL Ratio 5.6 Test 09/15/16 12:14 Bedside Glucose 106 Medications Medications Current Medications Carvedilol (Coreg) 3.125 mg BID PO Last administered on 09/15/16 08:27; Admin Dose 3.125 MG; Start 09/13/16 at 21:00 Diltiazem HCl (Cardizem Iv) 5 mg Q4H PRN IV HR>110 Hold SBP<100 Last administered on 09/14/16 19:50; Admin Dose 5 MG; Start 09/13/16 at 17:00 Enoxaparin Sodium (Lovenox) 90 mg Q12 SC Last administered on 09/15/16 08:28; Admin Dose 90 MG; Start 09/13/16 at 21:00 Amiodarone HCl (Cordarone) 200 mg TID PO Last administered on 09/15/16 08:26; Admin Dose 200 MG; Start 09/13/16 at 21:00 Albuterol (Ventolin Hfa) 2 puff Q4H INH Last administered on 09/15/16 14:29; Admin Dose 2 PUFF; Start 09/13/16 at 18:00 Aspirin (Aspirin) 81 mg DAILY PO Last administered on 09/15/16 08:25; Admin Dose 81 MG; Start 09/14/16 at 09:00 Fluoxetine HCl (Prozac) 80 mg BID PO ; Start 09/13/16 at 21:00; Status UNV Furosemide (Lasix) 20 mg BID PO Last administered on 09/15/16 08:30; Admin Dose 20 MG; Start 09/13/16 at 21:00 Insulin Glargine (Lantus) 12 unit QHS SC ; Start 09/13/16 at 21:00 Mirtazapine (Remeron) 30 mg BID PO ; Start 09/13/16 at 21:00; Status UNV Nitroglycerin (Nitroglycerin (Sl Tab) 0.4 Mg) 1 tab Q5M PRN SL CHEST PAIN; Start 09/13/16 at 18:00 Ondansetron HCl (Zofran Inj) 4 mg Q6H PRN IV NAUSEA AND/OR VOMITING; Start 09/13 at 18:00 Acetaminophen (Tylenol Tab) 650 mg Q6H PRN PO PAIN LEVEL 1-3 OR FEVER; Start at 18:00 Docusate Sodium (Colace) 100 mg Q12H PRN PO CONSTIPATION; Start 09/13/16 at 18: 00 Magnesium Hydroxide (Milk Of Mag) 30 ml DAILY PRN PO CONSTIPATION; Start at 18:00 Bisacodyl (Dulcolax) 5 mg DAILY PRN PO CONSTIPATION; Start 09/13/16 at 18:00 Pantoprazole (Protonix Tab) 40 mg DAILY@06 PO Last administered on 09/15/16 06 :49; Admin Dose 40 MG; Start 09/14/16 at 06:00 Diagnostic Test (Pha) (Accu-Chek) 1 ea 02 XX ; Start 09/14/16 at 02:00 Miscellaneous Information 1 ea NOTE XX ; Start 09/13/16 at 18:00 Glucose (Glutose) 15 gm Q15M PRN PO DECREASED GLUCOSE; Start 09/13/16 at 18:00 Glucose (Glutose) 22.5 gm Q15M PRN PO DECREASED GLUCOSE; Start 09/13/16 at 18:00 Dextrose (D50w Syringe) 25 ml Q15M PRN IV DECREASED GLUCOSE; Start 09/13/16 at 18:00 Dextrose (D50w Syringe) 50 ml Q15M PRN IV DECREASED GLUCOSE Last administered on 09/13/16 18:33; Admin Dose 50 ML; Start 09/13/16 at 18:00 Glucagon (Glucagen) 1 mg Q15M PRN IM DECREASED GLUCOSE; Start 09/13/16 at 18:00 Glucose (Glutose) 15 gm Q15M PRN BUCCAL DECREASED GLUCOSE; Start 09/13/16 at 18: 00 Zolpidem Tartrate (Ambien) 5 mg HS PRN PO INSOMNIA Last administered on 21:51; Admin Dose 5 MG; Start 09/14/16 at 00:00 Digoxin (Digoxin) 125 mcg DAILY@13 IV Last administered on 09/15/16 12:16; Admin Dose 125 MCG; Start 09/15/16 at 13:00 Lisinopril (Zestril) 2.5 mg DAILY PO Last administered on 09/15/16 08:27; Admin Dose 2.5 MG; Start 09/14/16 at 13:00 ROEL BLACK MD Sep 15, 2016 16:47
--- NOTE | 2016-09-15 18:06 | PN ---
Date/Time of Note Date/Time of Note DATE: 09/15/16 TIME: 18:05 Assessment/Plan VTE Prophylaxis VTE Prophylaxis Intervention: other Lines/Catheters IV Catheter Type (from Nrs): Saline Lock Assessment/Plan Chief Complaint/Hosp Course IMPRESSION: Atrial flutter, rapid ventricular response, l rule out ischemic heart disease. Patient has cardiac arrhythmia, history of hypertension, history of chronic kidney disease, history of ascites, history of , history of drug abuse, history of systolic heart failure, history of gastrointestinal bleed , history of lactic acidosis, history of abnormal LFTs. plan lasix labs xr Problems: Subjective 24 Hr Interval Summary Respiratory: no complaints Gastrointestinal: no complaints Genitourinary: no complaints Exam/Review of Systems Vital Signs Vitals Vital Signs Date Time Temp Pulse Resp B/P Pulse Ox O2 Delivery O2 Flow Rate FiO2 09/15/16 16:24 86 09/15/16 15:37 98.6 17 103/59 91 09/14/16 12:38 Room Air 09/13/16 11:10 2.0 Intake and Output 09/14/16 09/14/16 09/15/16 15:00 23:00 07:00 Intake Total 800 ml Balance 800 ml Exam Respiratory: clear to auscultation Cardiovascular: regular rate and rhythm Gastrointestinal: soft Extremities: normal pulses Results Result Diagram: 09/14/16 1010 09/14/16 1010 Results 24 hrs Laboratory Tests Test 09/14/16 21:44 09/15/16 06:23 09/15/16 07:28 09/15/16 12:14 Bedside Glucose 92 75 106 Triglycerides Level 65 Cholesterol Level 118 LDL Cholesterol, Calculated 84 HDL Cholesterol 21 L Cholesterol/HDL Ratio 5.6 Test 09/15/16 17:11 Bedside Glucose 115 Medications Medications Current Medications Carvedilol (Coreg) 3.125 mg BID PO Last administered on 09/15/16 08:27; Admin Dose 3.125 MG; Start 09/13/16 at 21:00 Diltiazem HCl (Cardizem Iv) 5 mg Q4H PRN IV HR>110 Hold SBP<100 Last administered on 09/14/16 19:50; Admin Dose 5 MG; Start 09/13/16 at 17:00 Enoxaparin Sodium (Lovenox) 90 mg Q12 SC Last administered on 09/15/16 08:28; Admin Dose 90 MG; Start 09/13/16 at 21:00 Amiodarone HCl (Cordarone) 200 mg TID PO Last administered on 09/15/16 08:26; Admin Dose 200 MG; Start 09/13/16 at 21:00 Albuterol (Ventolin Hfa) 2 puff Q4H INH Last administered on 09/15/16 17:12; Admin Dose 2 PUFF; Start 09/13/16 at 18:00 Aspirin (Aspirin) 81 mg DAILY PO Last administered on 09/15/16 08:25; Admin Dose 81 MG; Start 09/14/16 at 09:00 Fluoxetine HCl (Prozac) 80 mg BID PO ; Start 09/13/16 at 21:00; Status UNV Furosemide (Lasix) 20 mg BID PO Last administered on 09/15/16 08:30; Admin Dose 20 MG; Start 09/13/16 at 21:00 Insulin Glargine (Lantus) 12 unit QHS SC ; Start 09/13/16 at 21:00 Mirtazapine (Remeron) 30 mg BID PO ; Start 09/13/16 at 21:00; Status UNV Nitroglycerin (Nitroglycerin (Sl Tab) 0.4 Mg) 1 tab Q5M PRN SL CHEST PAIN; Start 09/13/16 at 18:00 Ondansetron HCl (Zofran Inj) 4 mg Q6H PRN IV NAUSEA AND/OR VOMITING; Start 09/13 at 18:00 Acetaminophen (Tylenol Tab) 650 mg Q6H PRN PO PAIN LEVEL 1-3 OR FEVER; Start at 18:00 Docusate Sodium (Colace) 100 mg Q12H PRN PO CONSTIPATION; Start 09/13/16 at 18: 00 Magnesium Hydroxide (Milk Of Mag) 30 ml DAILY PRN PO CONSTIPATION; Start at 18:00 Bisacodyl (Dulcolax) 5 mg DAILY PRN PO CONSTIPATION; Start 09/13/16 at 18:00 Pantoprazole (Protonix Tab) 40 mg DAILY@06 PO Last administered on 09/15/16 06 :49; Admin Dose 40 MG; Start 09/14/16 at 06:00 Diagnostic Test (Pha) (Accu-Chek) 1 ea 02 XX ; Start 09/14/16 at 02:00 Miscellaneous Information 1 ea NOTE XX ; Start 09/13/16 at 18:00 Glucose (Glutose) 15 gm Q15M PRN PO DECREASED GLUCOSE; Start 09/13/16 at 18:00 Glucose (Glutose) 22.5 gm Q15M PRN PO DECREASED GLUCOSE; Start 09/13/16 at 18:00 Dextrose (D50w Syringe) 25 ml Q15M PRN IV DECREASED GLUCOSE; Start 09/13/16 at 18:00 Dextrose (D50w Syringe) 50 ml Q15M PRN IV DECREASED GLUCOSE Last administered on 09/13/16 18:33; Admin Dose 50 ML; Start 09/13/16 at 18:00 Glucagon (Glucagen) 1 mg Q15M PRN IM DECREASED GLUCOSE; Start 09/13/16 at 18:00 Glucose (Glutose) 15 gm Q15M PRN BUCCAL DECREASED GLUCOSE; Start 09/13/16 at 18: 00 Zolpidem Tartrate (Ambien) 5 mg HS PRN PO INSOMNIA Last administered on 21:51; Admin Dose 5 MG; Start 09/14/16 at 00:00 Digoxin (Digoxin) 125 mcg DAILY@13 IV Last administered on 09/15/16 12:16; Admin Dose 125 MCG; Start 09/15/16 at 13:00 Lisinopril (Zestril) 2.5 mg DAILY PO Last administered on 09/15/16 08:27; Admin Dose 2.5 MG; Start 09/14/16 at 13:00 ANDREAS FRANCISCO MD Sep 15, 2016 18:06
--- NOTE | 2016-09-15 18:27 | RADRPT ---
Vent Rate: 96 bpm RR Interval: 0 msec WI Interval: 144 msec QRS Duration: 82 msec QT Interval: 390 msec QTC Interval: 492 msec P-R-T Lejunior: 89 - -73 - 0 degrees Sinus rhythm with premature supraventricular complexes Left axis deviation Pulmonary disease pattern RSR apos; orattern in V1 suggests right ventricular conduction delay ST amp; T wave abnormality, consider inferior ischemia ST amp; T wave abnormality, consider anterior ischemia Prolonged QT Abnormal ECG Electronically Signed By: Kevon Umana [id number]
[2016-09-15] MEDS: INSULIN GLARGINE [LANtus] 3 ML PEN SC SCH (21:00)
[2016-09-15] MEDS: GUAIFENESIN/DM 5ML CUP PO PRN (21:07)
[2016-09-15] MEDS: ZOLPIDEM 5 MG TAB PO PRN (21:08)
[2016-09-16] VITALS (12 sets, daily range): BP systolic 94–144; BP diastolic 52–66; PULSE 82–109; RESP 18–21
[2016-09-16] MEDS: ACCU-CHEK XX SCH (02:00)
[2016-09-16] MEDS: ALBUTEROL HFA 8 GM INHALER INH SCH ×3 (02:38→10:21)
--- NOTE | 2016-09-16 05:38 | RADRPT ---
PROCEDURE: XR Chest. CLINICAL INDICATION: Pulmonary edema TECHNIQUE: A single AP view of the chest was obtained. COMPARISON: Chest x-ray dated 09/13/2016 FINDINGS: Lung volumes are low. There is prominence of the central pulmonary vascular markings. No focal air space opacification, pleural effusion or pneumothorax is seen. The cardiomediastinal silhouette is mildly enlarged. The osseous structures are unremarkable. IMPRESSION: 1. Prominent pulmonary vascular markings, suggesting pulmonary vascular congestion, mildly increase d when compared to the prior examination. 2. Low lung volumes. 3. Mild cardiomegaly. RPTAT: HH .Estelita Malagon MD, MD Date Time Electronically viewed and signed by .Estelita Malagon MD, on 09/16/2016 05:38 .G/
[2016-09-16] MEDS: PANTOPRAZOLE (EC) 40 MG TAB PO SCH (06:31)
[2016-09-16 06:59] LABS: ADD SCAN DIFF NO
[2016-09-16 07:04] LABS: BASOPHILS % 0.3 % (0.0-2.0); HEMATOCRIT 32.7 % (42.0-52.0); HEMOGLOBIN 10.4 g/dl (14.0-18.0); LYMPHOCYTES # 1.8 10^3/ul (0.8-2.9); LYMPHOCYTES % 22.7 % (15.0-51.0); MEAN CORPUSCULAR HEMOGLOBIN 27.2 pg (29.0-33.0); MEAN CORPUSCULAR HGB CONC 31.8 g/dl (32.0-37.0); MEAN CORPUSCULAR VOLUME 85.4 fl (82.0-101.0); MONOCYTE # 0.6 10^3/ul (0.3-0.9); MONOCYTES % 7.4 % (0.0-11.0); NEUTROPHIL # 5.4 10^3/ul (1.6-7.5); NEUTROPHILS % 69.1 % (39.0-77.0); PLATELET COUNT 260 10^3/UL (140-415); RED BLOOD COUNT 3.83 10^6/ul (4.70-6.10); RED CELL DISTRIBUTION WIDTH 20.5 % (11.5-14.5); WHITE BLOOD COUNT 7.9 10^3/ul (4.8-10.8)
[2016-09-16 07:29] LABS: ALBUMIN 2.6 g/dl (3.3-4.9); ALBUMIN/GLOBULIN RATIO 0.78; BILIRUBIN,INDIRECT 0.3 mg/dl (0-1.1); BILIRUBIN,TOTAL 0.3 mg/dl (0.2-1.3); CALCIUM 7.6 mg/dl (8.4-10.2); CREATININE 0.82 mg/dl (0.61-1.24); POTASSIUM 3.3 mmol/L (3.5-5.1); TOTAL PROTEIN 5.9 g/dl (6.1-8.1)
[2016-09-16] MEDS: INSULIN ASPART [NOVOLOG] 3 ML PEN SC SCH ×4 (07:54→20:54)
[2016-09-16] MEDS: ASPIRIN 81 MG TAB PO SCH (08:25)
[2016-09-16] MEDS: FUROSEMIDE 20 MG TAB PO SCH (08:25)
[2016-09-16] MEDS: AMIODARONE 200 MG TAB PO SCH ×3 (08:26→20:53)
[2016-09-16] MEDS: LISINOPRIL 5 MG TAB PO SCH (08:26)
[2016-09-16] MEDS: ENOXAPARIN 100 MG/ML SYG SC SCH ×2 (08:28→21:06)
[2016-09-16] MEDS: GUAIFENESIN/DM 5ML CUP PO PRN ×3 (11:21→21:17)
[2016-09-16] MEDS: ALBUTEROL 18 GM INHALER INH SCH ×4 (12:35→20:54)
[2016-09-16] MEDS: DIGOXIN 500 MCG INJ IV SCH (12:36)
[2016-09-16] MEDS ORDERED: HYDROCODONE/HOMATROPINE 5ML CUP PO PRN (18:00)
[2016-09-16] MEDS ORDERED: morphine 2 MG INJ IV PRN (18:00)
--- NOTE | 2016-09-16 18:14 | CONS ---
Date/Time of Note Date/Time of Note DATE: 09/16/16 TIME: 18:11 Assessment/Plan Assessment/Plan Chief Complaint/Hosp Course IMPRESSION: 1. Atrial flutter with rapid ventricular response-now rate controlled on BB 2. Hypotension-stable to improved 3. Cardiomyopathy with severely depressed left ventricular ejection fraction, last being approximately 20% by echo. Negative troponin x 3 4. Increased BNP consistent with congestive heart failure in 20,000. 5. Anemia. 6. History of substance abuse. 7. History of ventricular tachycardia. Recc: -Tele -serial ecg's -Continue coreg/ACEI -start PO digoxin -Continue lasix and follow volume status closely -PT eval Problems: Consultation Date/Type/Reason Admit Date/Time Sep 13, 2016 at 14:27 Initial Consult Date 09/13/2016 Type of Consultation: Cardiology Reason for Consultation Cardiomyopathy/AFL Referring Provider: ANDREAS FRANCISCO MD Exam/Review of Systems Vital Signs Vitals Vital Signs Date Time Temp Pulse Resp B/P Pulse Ox O2 Delivery O2 Flow Rate FiO2 09/16/16 16:29 85 09/16/16 15:59 98.0 144/66 94 09/16/16 11:47 21 09/14/16 12:38 Room Air 09/13/16 11:10 2.0 Intake and Output 09/15/16 09/15/16 09/16/16 15:00 23:00 07:00 Intake Total 850 ml 420 ml Output Total 850 ml Balance 850 ml -430 ml Exam Review of Systems: CONSTITUTIONAL: No fevers, chills. PULMONARY: No sob CARDIOVASCULAR: No chest pain/palpitations GASTROINTESTINAL: No nausea/vomiting. GENITOURINARY: No hematuria/dysuria. MUSCULOSKELETAL: No myagias/arthalgias. PSYCHIATRIC: The patient denies depression. NEUROLOGIC: Generalized weakness Constitutional: alert Psych: no complaints Head: normocephalic ENMT: mucosa pink and moist Neck: jvd (9 cm water), supple Respiratory: diminished breath sounds Cardiovascular: irregular rhythm Gastrointestinal: non-tender, soft Extremities: edema (trace/B) Neurological: other (No focal deficits) Results Result Diagram: 09/16/16 0645 09/16/16 0645 Results 24 hrs Laboratory Tests Test 09/15/16 21:12 09/16/16 06:45 09/16/16 07:53 09/16/16 11:39 Bedside Glucose 97 91 126 White Blood Count 7.9 Red Blood Count 3.83 L Hemoglobin 10.4 L Hematocrit 32.7 L Mean Corpuscular Volume 85.4 Mean Corpuscular Hemoglobin 27.2 L Mean Corpuscular Hemoglobin Concent 31.8 L Red Cell Distribution Width 20.5 H Platelet Count 260 Mean Platelet Volume 10.0 Neutrophils % 69.1 Lymphocytes % 22.7 Monocytes % 7.4 Eosinophils % 0.0 Basophils % 0.3 Nucleated Red Blood Cells % 0.0 Neutrophils # 5.4 Lymphocytes # 1.8 Monocytes # 0.6 Eosinophils # 0.0 Basophils # 0.0 Nucleated Red Blood Cells # 0.0 Sodium Level 133 L Potassium Level 3.3 L Chloride Level 101 Carbon Dioxide Level 29 Anion Gap 6 #L Blood Urea Nitrogen 17 # Creatinine 0.82 Glucose Level 90 Calcium Level 7.6 L Total Bilirubin 0.3 Direct Bilirubin 0.00 Indirect Bilirubin 0.3 Aspartate Amino Transf (AST/SGOT) 58 H Alanine Aminotransferase (ALT/SGPT) 57 Alkaline Phosphatase 66 Total Protein 5.9 L Albumin 2.6 L Globulin 3.30 H Albumin/Globulin Ratio 0.78 Test 09/16/16 17:21 Bedside Glucose 104 Medications Medications Current Medications Carvedilol (Coreg) 3.125 mg BID PO Last administered on 09/16/16 08:26; Admin Dose 3.125 MG; Start 09/13/16 at 21:00 Diltiazem HCl (Cardizem Iv) 5 mg Q4H PRN IV HR>110 Hold SBP<100 Last administered on 09/14/16 19:50; Admin Dose 5 MG; Start 09/13/16 at 17:00 Enoxaparin Sodium (Lovenox) 90 mg Q12 SC Last administered on 09/16/16 08:28; Admin Dose 90 MG; Start 09/13/16 at 21:00 Amiodarone HCl (Cordarone) 200 mg TID PO Last administered on 09/16/16 12:35; Admin Dose 200 MG; Start 09/13/16 at 21:00 Aspirin (Aspirin) 81 mg DAILY PO Last administered on 09/16/16 08:25; Admin Dose 81 MG; Start 09/14/16 at 09:00 Fluoxetine HCl (Prozac) 80 mg BID PO ; Start 09/13/16 at 21:00; Status UNV Furosemide (Lasix) 20 mg BID PO Last administered on 09/16/16 08:25; Admin Dose 20 MG; Start 09/13/16 at 21:00 Insulin Glargine (Lantus) 12 unit QHS SC ; Start 09/13/16 at 21:00 Mirtazapine (Remeron) 30 mg BID PO ; Start 09/13/16 at 21:00; Status UNV Nitroglycerin (Nitroglycerin (Sl Tab) 0.4 Mg) 1 tab Q5M PRN SL CHEST PAIN; Start 09/13/16 at 18:00 Ondansetron HCl (Zofran Inj) 4 mg Q6H PRN IV NAUSEA AND/OR VOMITING; Start 09/13 at 18:00 Acetaminophen (Tylenol Tab) 650 mg Q6H PRN PO PAIN LEVEL 1-3 OR FEVER Last administered on 09/16/16 17:27; Admin Dose 650 MG; Start 09/13/16 at 18:00 Docusate Sodium (Colace) 100 mg Q12H PRN PO CONSTIPATION; Start 09/13/16 at 18: 00 Magnesium Hydroxide (Milk Of Mag) 30 ml DAILY PRN PO CONSTIPATION; Start at 18:00 Bisacodyl (Dulcolax) 5 mg DAILY PRN PO CONSTIPATION; Start 09/13/16 at 18:00 Pantoprazole (Protonix Tab) 40 mg DAILY@06 PO Last administered on 09/16/16 06 :31; Admin Dose 40 MG; Start 09/14/16 at 06:00 Diagnostic Test (Pha) (Accu-Chek) 1 ea 02 XX ; Start 09/14/16 at 02:00 Miscellaneous Information 1 ea NOTE XX ; Start 09/13/16 at 18:00 Glucose (Glutose) 15 gm Q15M PRN PO DECREASED GLUCOSE; Start 09/13/16 at 18:00 Glucose (Glutose) 22.5 gm Q15M PRN PO DECREASED GLUCOSE; Start 09/13/16 at 18:00 Dextrose (D50w Syringe) 25 ml Q15M PRN IV DECREASED GLUCOSE; Start 09/13/16 at 18:00 Dextrose (D50w Syringe) 50 ml Q15M PRN IV DECREASED GLUCOSE Last administered on 4/9/17at 18:33; Admin Dose 50 ML; Start 09/13/16 at 18:00 Glucagon (Glucagen) 1 mg Q15M PRN IM DECREASED GLUCOSE; Start 09/13/16 at 18:00 Glucose (Glutose) 15 gm Q15M PRN BUCCAL DECREASED GLUCOSE; Start 09/13/16 at 18: 00 Zolpidem Tartrate (Ambien) 5 mg HS PRN PO INSOMNIA Last administered on 21:08; Admin Dose 5 MG; Start 09/14/16 at 00:00 Digoxin (Digoxin) 125 mcg DAILY@13 IV Last administered on 09/16/16 12:36; Admin Dose 125 MCG; Start 09/15/16 at 13:00 Lisinopril (Zestril) 2.5 mg DAILY PO Last administered on 09/16/16 08:26; Admin Dose 2.5 MG; Start 09/14/16 at 13:00 Guaifenesin/ Dextromethorphan (Robitussin Dm Liquid Cup) 10 ml Q4H PRN PO cough Last administered on 09/16/16 17:27; Admin Dose 10 ML; Start 09/15/16 at 18:30 Albuterol (Ventolin Hfa) 2 puff Q4H INH Last administered on 09/16/16 14:57; Admin Dose 2 PUFF; Start 09/16/16 at 10:26 Miscellaneous Information (*Order Clarification Bulletin) MEDICATION REQUIRES CLARIFICATION: BID@08,18 XX Last administered on 09/16/16 18:05; Admin Dose 1 EA; Start 09/16/16 at 13:00 Hydrocodone Bit/ Homatropine Methylb (Hycodan Liquid) 10 ml Q6 PRN PO COUGH; Start 09/16/16 at 18:00; Status UNV Morphine Sulfate (morphine) 2 mg Q4H PRN IV PAIN LEVEL 6-10; Start 09/16/16 at 18:00; Status UNV DEXTER ZAMORANO Sep 16, 2016 18:14
--- NOTE | 2016-09-16 20:04 | PN ---
Date/Time of Note Date/Time of Note DATE: 09/16/16 TIME: 20:02 Assessment/Plan VTE Prophylaxis VTE Prophylaxis Intervention: other Lines/Catheters IV Catheter Type (from Nrsg): Saline Lock Assessment/Plan Chief Complaint/Hosp Course IMPRESSION: Atrial flutter, rapid ventricular response, l rule out ischemic heart disease. Patient has cardiac arrhythmia, history of hypertension, history of chronic kidney disease, history of ascites, history of , history of drug abuse, history of systolic heart failure, history of gastrointestinal bleed , history of lactic acidosis, history of abnormal LFTs.sys chf plan lasix labs kcl Problems: Subjective 24 Hr Interval Summary Respiratory: cough, shortness of breath (better) Gastrointestinal: no complaints Genitourinary: no complaints Exam/Review of Systems Vital Signs Vitals Vital Signs Date Time Temp Pulse Resp B/P Pulse Ox O2 Delivery O2 Flow Rate FiO2 09/16/16 16:29 85 09/16/16 15:59 98.0 144/66 94 09/16/16 11:47 21 09/14/16 12:38 Room Air 09/13/16 11:10 2.0 Intake and Output 09/15/16 09/15/16 09/16/16 15:00 23:00 07:00 Intake Total 850 ml 420 ml Output Total 850 ml Balance 850 ml -430 ml Exam Neck: supple Respiratory: diminished breath sounds Cardiovascular: regular rate and rhythm Gastrointestinal: soft Extremities: No edema Results Result Diagram: 09/16/16 0645 09/16/16 0645 Results 24 hrs Laboratory Tests Test 09/15/16 21:12 09/16/16 06:45 09/16/16 07:53 09/16/16 11:39 Bedside Glucose 97 91 126 White Blood Count 7.9 Red Blood Count 3.83 L Hemoglobin 10.4 L Hematocrit 32.7 L Mean Corpuscular Volume 85.4 Mean Corpuscular Hemoglobin 27.2 L Mean Corpuscular Hemoglobin Concent 31.8 L Red Cell Distribution Width 20.5 H Platelet Count 260 Mean Platelet Volume 10.0 Neutrophils % 69.1 Lymphocytes % 22.7 Monocytes % 7.4 Eosinophils % 0.0 Basophils % 0.3 Nucleated Red Blood Cells % 0.0 Neutrophils # 5.4 Lymphocytes # 1.8 Monocytes # 0.6 Eosinophils # 0.0 Basophils # 0.0 Nucleated Red Blood Cells # 0.0 Sodium Level 133 L Potassium Level 3.3 L Chloride Level 101 Carbon Dioxide Level 29 Anion Gap 6 #L Blood Urea Nitrogen 17 # Creatinine 0.82 Glucose Level 90 Calcium Level 7.6 L Total Bilirubin 0.3 Direct Bilirubin 0.00 Indirect Bilirubin 0.3 Aspartate Amino Transf (AST/SGOT) 58 H Alanine Aminotransferase (ALT/SGPT) 57 Alkaline Phosphatase 66 Total Protein 5.9 L Albumin 2.6 L Globulin 3.30 H Albumin/Globulin Ratio 0.78 Test 09/16/16 17:21 Bedside Glucose 104 Medications Medications Current Medications Carvedilol (Coreg) 3.125 mg BID PO Last administered on 09/16/16 08:26; Admin Dose 3.125 MG; Start 09/13/16 at 21:00 Diltiazem HCl (Cardizem Iv) 5 mg Q4H PRN IV HR>110 Hold SBP<100 Last administered on 09/14/16 19:50; Admin Dose 5 MG; Start 09/13/16 at 17:00 Enoxaparin Sodium (Lovenox) 90 mg Q12 SC Last administered on 09/16/16 08:28; Admin Dose 90 MG; Start 09/13/16 at 21:00 Amiodarone HCl (Cordarone) 200 mg TID PO Last administered on 09/16/16 12:35; Admin Dose 200 MG; Start 09/13/16 at 21:00 Aspirin (Aspirin) 81 mg DAILY PO Last administered on 09/16/16 08:25; Admin Dose 81 MG; Start 09/14/16 at 09:00 Fluoxetine HCl (Prozac) 80 mg BID PO ; Start 09/13/16 at 21:00; Status UNV Furosemide (Lasix) 20 mg BID PO Last administered on 09/16/16 08:25; Admin Dose 20 MG; Start 09/13/16 at 21:00 Insulin Glargine (Lantus) 12 unit QHS SC ; Start 09/13/16 at 21:00 Mirtazapine (Remeron) 30 mg BID PO ; Start 09/13/16 at 21:00; Status UNV Nitroglycerin (Nitroglycerin (Sl Tab) 0.4 Mg) 1 tab Q5M PRN SL CHEST PAIN; Start 09/13/16 at 18:00 Ondansetron HCl (Zofran Inj) 4 mg Q6H PRN IV NAUSEA AND/OR VOMITING; Start 09/13 at 18:00 Acetaminophen (Tylenol Tab) 650 mg Q6H PRN PO PAIN LEVEL 1-3 OR FEVER Last administered on 09/16/16 17:27; Admin Dose 650 MG; Start 09/13/16 at 18:00 Docusate Sodium (Colace) 100 mg Q12H PRN PO CONSTIPATION; Start 09/13/16 at 18: 00 Magnesium Hydroxide (Milk Of Mag) 30 ml DAILY PRN PO CONSTIPATION; Start at 18:00 Bisacodyl (Dulcolax) 5 mg DAILY PRN PO CONSTIPATION; Start 09/13/16 at 18:00 Pantoprazole (Protonix Tab) 40 mg DAILY@06 PO Last administered on 09/16/16 06 :31; Admin Dose 40 MG; Start 09/14/16 at 06:00 Diagnostic Test (Pha) (Accu-Chek) 1 ea 02 XX ; Start 09/14/16 at 02:00 Miscellaneous Information 1 ea NOTE XX ; Start 09/13/16 at 18:00 Glucose (Glutose) 15 gm Q15M PRN PO DECREASED GLUCOSE; Start 09/13/16 at 18:00 Glucose (Glutose) 22.5 gm Q15M PRN PO DECREASED GLUCOSE; Start 09/13/16 at 18:00 Dextrose (D50w Syringe) 25 ml Q15M PRN IV DECREASED GLUCOSE; Start 09/13/16 at 18:00 Dextrose (D50w Syringe) 50 ml Q15M PRN IV DECREASED GLUCOSE Last administered on 09/13/16 18:33; Admin Dose 50 ML; Start 09/13/16 at 18:00 Glucagon (Glucagen) 1 mg Q15M PRN IM DECREASED GLUCOSE; Start 09/13/16 at 18:00 Glucose (Glutose) 15 gm Q15M PRN BUCCAL DECREASED GLUCOSE; Start 09/13/16 at 18: 00 Zolpidem Tartrate (Ambien) 5 mg HS PRN PO INSOMNIA Last administered on 21:08; Admin Dose 5 MG; Start 09/14/16 at 00:00 Digoxin (Digoxin) 125 mcg DAILY@13 IV Last administered on 09/16/16 12:36; Admin Dose 125 MCG; Start 09/15/16 at 13:00 Lisinopril (Zestril) 2.5 mg DAILY PO Last administered on 09/16/16 08:26; Admin Dose 2.5 MG; Start 09/14/16 at 13:00 Guaifenesin/ Dextromethorphan (Robitussin Dm Liquid Cup) 10 ml Q4H PRN PO cough Last administered on 09/16/16 17:27; Admin Dose 10 ML; Start 09/15/16 at 18:30 Albuterol (Ventolin Hfa) 2 puff Q4H INH Last administered on 09/16/16 18:16; Admin Dose 2 PUFF; Start 09/16/16 at 10:26 Miscellaneous Information (*Order Clarification Bulletin) MEDICATION REQUIRES CLARIFICATION: BID@08,18 XX Last administered on 09/16/16 18:05; Admin Dose 1 EA; Start 09/16/16 at 13:00 Hydrocodone Bit/ Homatropine Methylb (Hycodan Liquid) 10 ml Q6 PRN PO COUGH; Start 09/16/16 at 18:00 Morphine Sulfate (morphine) 2 mg Q4H PRN IV PAIN LEVEL 6-10; Start 09/16/16 at 18:00 ANDREAS FRANCISCO MD Sep 16, 2016 20:04
[2016-09-16] MEDS: INSULIN GLARGINE [LANtus] 3 ML PEN SC SCH (21:09)
[2016-09-16] MEDS: POTASSIUM CHLORIDE (SR) 20 MEQ TAB PO SCH (21:16)
[2016-09-16] MEDS: ZOLPIDEM 5 MG TAB PO PRN (21:17)
[2016-09-16] MEDS: FUROSEMIDE 40 MG TAB PO SCH (21:17)
[2016-09-17] VITALS (8 sets, daily range): BP systolic 99–174; BP diastolic 50–82; PULSE 69–83; RESP 18–21
[2016-09-17] MEDS: ACCU-CHEK XX SCH (02:00)
[2016-09-17] MEDS: ALBUTEROL 18 GM INHALER INH SCH ×4 (02:26→14:26)
[2016-09-17] MEDS: PANTOPRAZOLE (EC) 40 MG TAB PO SCH (05:49)
[2016-09-17] MEDS: FUROSEMIDE 40 MG TAB PO SCH (05:50)
[2016-09-17] MEDS: INSULIN ASPART [NOVOLOG] 3 ML PEN SC SCH ×2 (07:46→11:50)
[2016-09-17] MEDS: POTASSIUM CHLORIDE (SR) 20 MEQ TAB PO SCH ×2 (08:23→13:00)
[2016-09-17] MEDS: ASPIRIN 81 MG TAB PO SCH (08:23)
[2016-09-17] MEDS: LISINOPRIL 5 MG TAB PO SCH (08:24)
[2016-09-17] MEDS: AMIODARONE 200 MG TAB PO SCH ×2 (08:24→13:00)
[2016-09-17] MEDS: ENOXAPARIN 100 MG/ML SYG SC SCH (08:27)
[2016-09-17 08:35] LABS: CALCIUM 7.7 mg/dl (8.4-10.2); CREATININE 0.78 mg/dl (0.61-1.24); POTASSIUM 3.3 mmol/L (3.5-5.1)
[2016-09-17] MEDS ORDERED: FLUOXETINE 20 MG CAP PO SCH (11:30)
--- NOTE | 2016-09-17 11:51 | PDOCDIS ---
Discharge Instructions CONDITION Patient Condition: Stable HOME CARE INSTRUCTIONS: Special Diet: DIABETIC/ CARDIAC DIET ACTIVITY: Activity Restrictions: Slowly Increase Activity FOLLOW UP/APPOINTMENTS Appointments f/u own pcp [address] carter 1 wk ANDREAS FRANCISCO MD Sep 17, 2016 11:51
[2016-09-17] MEDS ORDERED: POTASSIUM CHLORIDE (SR) 10 MEQ TAB PO ONE (12:00)
[2016-09-17] MEDS ORDERED: LISI-313 PO (12:08)
[2016-09-17] MEDS ORDERED: HOMATROPINE PO (12:08)
[2016-09-17] MEDS ORDERED: AMIO200T2 PO (12:08)
[2016-09-17] MEDS ORDERED: CARV3.1260 PO (12:08)
[2016-09-17] MEDS ORDERED: MIRT15TA5 PO (12:08)
[2016-09-17] MEDS ORDERED: HYDROCODONE PO (12:08)
[2016-09-17] MEDS ORDERED: DIGO125T19 PO (12:08)
[2016-09-17] MEDS ORDERED: FLUO20CA22 PO (12:08)
[2016-09-17] MEDS ORDERED: POTA10TA15 PO (12:08)
--- NOTE | 2016-09-17 12:10 | PDOCDIS ---
Discharge Instructions CONDITION Patient Condition: Stable HOME CARE INSTRUCTIONS: Special Diet: DIABETIC/ CARDIAC DIET ACTIVITY: Activity Restrictions: Slowly Increase Activity ANDREAS FRANCISCO MD Sep 17, 2016 12:10
--- NOTE | 2016-09-17 12:31 | QN ---
Documentation Comment [id number] ANDREAS FRANCISCO MD Sep 17, 2016 12:31
--- NOTE | 2016-09-17 12:50 | DS ---
DATE OF ADMISSION: 09/13/2016 DATE OF DISCHARGE: HOSPITAL COURSE: Humberto Hopkins is a 51-year-old male who was admitted with chest pain, palpitati ons, shortness of breath. He was seen by Dr. Rodríguez and by Dr. Ryan, atrial flutter with rapid v entricular response. The patient received Cordarone, digoxin, Lasix, potassium supplementation. Ho nm medications were continued. Diabetes mellitus was also managed. The patient was put on sliding scale and Lantus insulin. Hematocrit 32.7. Potassium 3.3, being replaced. The patient is ambulato ry. The patient has a dry cough, received Hycodan. The patient was cleared by Dr. Ryan to be dis charged home. DISCHARGE DIAGNOSES: Include: 1. Atrial flutter with rapid ventricular response. 2. Status post hypotension, improved. 3. Cardiomyopathy with severely depressed left ventricular ejection fraction of approximately 20%. 4. Elevated BNP. 5. Anemia. 6. History of substance abuse. 7. History of ventricular tachycardia. 8. The patient has electrolyte imbalance. 9. Diabetes mellitus. 10. Hyponatremia. 11. Underlying possible chronic kidney disease. DISCHARGE MEDICATIONS: The patient is to continue on: 1. Amiodarone. 2. Coreg. 3. Digoxin. 4. Prozac. 5. Lisinopril. 6. Mirtazapine. 7. Potassium. 8. Hycodan. 9. Albuterol. 10. Aspirin. 11. Lasix. 12. Lantus. 13. Nitroglycerin. FOLLOWUP: The patient to follow up with the PCP and Dr. Rodríguez as an outpatient. DIET: Cardiac diet. CONDITION: The patient is stable at the time of discharge. Dictated By: ANDREAS FRANCISCO MD BS/NTS Conf#: [id number] DID#: [id number]
[2016-09-17] MEDS: DIGOXIN 500 MCG INJ IV SCH (13:00)
--- NOTE | 2016-09-17 13:42 | CONS ---
Date/Time of Note Date/Time of Note DATE: 09/17/16 TIME: 13:39 Assessment/Plan Assessment/Plan Chief Complaint/Hosp Course IMPRESSION: 1. Atrial flutter with rapid ventricular response-now rate controlled on BB 2. Hypotension-stable to improved 3. Cardiomyopathy with severely depressed left ventricular ejection fraction, last being approximately 20% by echo. Negative troponin x 3 4. Increased BNP consistent with congestive heart failure in 20,000. 5. Anemia. 6. History of substance abuse. 7. History of ventricular tachycardia. Recc: -Tele -serial ecg's -Continue coreg/ACEI/digoxin -Continue lasix and follow volume status closely -Continue amio BID x 1 week and then decrase to daily -outpatient f/u 2 weeks -PT eval Problems: Consultation Date/Type/Reason Admit Date/Time Sep 13, 2016 at 14:27 Initial Consult Date 09/13/2016 Type of Consultation: Cardiology Reason for Consultation CHF Referring Provider: ANDREAS FRANCISCO MD Exam/Review of Systems Vital Signs Vitals Vital Signs Date Time Temp Pulse Resp B/P Pulse Ox O2 Delivery O2 Flow Rate FiO2 09/17/16 12:13 83 09/17/16 12:06 98.0 18 100/62 97 09/14/16 12:38 Room Air 09/13/16 11:10 2.0 Intake and Output 09/16/16 09/16/16 09/17/16 15:00 23:00 07:00 Intake Total 800 ml 950 ml Balance 800 ml 950 ml Exam Review of Systems: CONSTITUTIONAL: No fevers, chills. PULMONARY: No sob CARDIOVASCULAR: No chest pain/palpitations GASTROINTESTINAL: No nausea/vomiting. GENITOURINARY: No hematuria/dysuria. MUSCULOSKELETAL: No myagias/arthalgias. PSYCHIATRIC: The patient denies depression. NEUROLOGIC: No weakness Constitutional: alert, oriented Psych: no complaints Head: normocephalic ENMT: mucosa pink and moist Neck: jvd, supple Respiratory: diminished breath sounds Cardiovascular: regular rate and rhythm Gastrointestinal: non-tender, soft Musculoskeletal: muscle tone (normal) Extremities: edema (none) Neurological: other (No focal deficits) Results Result Diagram: 09/16/16 0645 09/17/16 0650 Results 24 hrs Laboratory Tests Test 09/16/16 17:21 09/16/16 20:46 09/17/16 06:50 09/17/16 07:46 Bedside Glucose 104 121 99 Sodium Level 134 L Potassium Level 3.3 L Chloride Level 100 Carbon Dioxide Level 29 Anion Gap 8 Blood Urea Nitrogen 16 Creatinine 0.78 Glucose Level 71 Calcium Level 7.7 L Test 09/17/16 11:50 Bedside Glucose 108 Medications Medications Current Medications Carvedilol (Coreg) 3.125 mg BID PO Last administered on 09/17/16 08:24; Admin Dose 3.125 MG; Start 09/13/16 at 21:00 Diltiazem HCl (Cardizem Iv) 5 mg Q4H PRN IV HR>110 Hold SBP<100 Last administered on 09/14/16 19:50; Admin Dose 5 MG; Start 09/13/16 at 17:00 Enoxaparin Sodium (Lovenox) 90 mg Q12 SC Last administered on 09/17/16 08:27; Admin Dose 90 MG; Start 09/13/16 at 21:00 Amiodarone HCl (Cordarone) 200 mg TID PO Last administered on 09/17/16 08:24; Admin Dose 200 MG; Start 09/13/16 at 21:00 Aspirin (Aspirin) 81 mg DAILY PO Last administered on 09/17/16 08:23; Admin Dose 81 MG; Start 09/14/16 at 09:00 Fluoxetine HCl (Prozac) 80 mg DAILY PO ; Start 09/17/16 at 11:30 Insulin Glargine (Lantus) 12 unit QHS SC Last administered on 09/16/16 21:09; Admin Dose 12 UNIT; Start 09/13/16 at 21:00 Mirtazapine (Remeron) 30 mg QHS PO ; Start 09/17/16 at 21:00 Nitroglycerin (Nitroglycerin (Sl Tab) 0.4 Mg) 1 tab Q5M PRN SL CHEST PAIN; Start 09/13/16 at 18:00 Ondansetron HCl (Zofran Inj) 4 mg Q6H PRN IV NAUSEA AND/OR VOMITING; Start 09/13 at 18:00 Acetaminophen (Tylenol Tab) 650 mg Q6H PRN PO PAIN LEVEL 1-3 OR FEVER Last administered on 09/16/16 17:27; Admin Dose 650 MG; Start 09/13/16 at 18:00 Docusate Sodium (Colace) 100 mg Q12H PRN PO CONSTIPATION; Start 09/13/16 at 18: 00 Magnesium Hydroxide (Milk Of Mag) 30 ml DAILY PRN PO CONSTIPATION; Start at 18:00 Bisacodyl (Dulcolax) 5 mg DAILY PRN PO CONSTIPATION; Start 09/13/16 at 18:00 Pantoprazole (Protonix Tab) 40 mg DAILY@06 PO Last administered on 09/17/16 05 :49; Admin Dose 40 MG; Start 09/14/16 at 06:00 Diagnostic Test (Pha) (Accu-Chek) 1 ea 02 XX ; Start 09/14/16 at 02:00 Miscellaneous Information 1 ea NOTE XX ; Start 09/13/16 at 18:00 Glucose (Glutose) 15 gm Q15M PRN PO DECREASED GLUCOSE; Start 09/13/16 at 18:00 Glucose (Glutose) 22.5 gm Q15M PRN PO DECREASED GLUCOSE; Start 09/13/16 at 18:00 Dextrose (D50w Syringe) 25 ml Q15M PRN IV DECREASED GLUCOSE; Start 09/13/16 at 18:00 Dextrose (D50w Syringe) 50 ml Q15M PRN IV DECREASED GLUCOSE Last administered on 09/13/16 18:33; Admin Dose 50 ML; Start 09/13/16 at 18:00 Glucagon (Glucagen) 1 mg Q15M PRN IM DECREASED GLUCOSE; Start 09/13/16 at 18:00 Glucose (Glutose) 15 gm Q15M PRN BUCCAL DECREASED GLUCOSE; Start 09/13/16 at 18: 00 Zolpidem Tartrate (Ambien) 5 mg HS PRN PO INSOMNIA Last administered on 21:17; Admin Dose 5 MG; Start 09/14/16 at 00:00 Digoxin (Digoxin) 125 mcg DAILY@13 IV Last administered on 09/16/16 12:36; Admin Dose 125 MCG; Start 09/15/16 at 13:00 Lisinopril (Zestril) 2.5 mg DAILY PO Last administered on 09/16/16 08:26; Admin Dose 2.5 MG; Start 09/14/16 at 13:00 Guaifenesin/ Dextromethorphan (Robitussin Dm Liquid Cup) 10 ml Q4H PRN PO cough Last administered on 09/16/16 21:17; Admin Dose 10 ML; Start 09/15/16 at 18:30 Albuterol (Ventolin Hfa) 2 puff Q4H INH Last administered on 09/17/16 10:59; Admin Dose 2 PUFF; Start 09/16/16 at 10:26 Hydrocodone Bit/ Homatropine Methylb (Hycodan Liquid) 10 ml Q6 PRN PO COUGH Last administered on 09/16/16 20:52; Admin Dose 10 ML; Start 09/16/16 at 18:00 Morphine Sulfate (morphine) 2 mg Q4H PRN IV PAIN LEVEL 6-10; Start 09/16/16 at 18:00 Potassium Chloride (Klor-Con 20) 20 meq TID PO Last administered on 09/17/16 08:23; Admin Dose 20 MEQ; Start 09/16/16 at 21:00 DEXTER ZAMORANO Sep 17, 2016 13:42
[2016-09-17] MEDS ORDERED: MIRTAZAPINE 15 MG TAB PO SCH (21:00)
== END 2016-09-17 14:40 | disposition home or self-care (01) | DRG 292 ==
LOC: E/R 09:43 → TEL 14:27
PROVIDERS: ADMIT Internal Medicine Nephrology; ATTEND Internal Medicine Nephrology
DX: I50.23 Acute on chronic systolic (congestive) heart failure (principal); I42.9 Cardiomyopathy, unspecified; I13.0 Hypertensive heart and chronic kidney disease with heart failure and stage 1 through stage 4 chronic kidney disease, or unspecified chronic kidney disease; I48.92 Unspecified atrial flutter; E87.1 Hypo-osmolality and hyponatremia; I95.9 Hypotension, unspecified; E11.22 Type 2 diabetes mellitus with diabetic chronic kidney disease; Z79.01 Long term (current) use of anticoagulants; F31.9 Bipolar disorder, unspecified; D64.9 Anemia, unspecified; N18.9 Chronic kidney disease, unspecified; Z87.891 Personal history of nicotine dependence; Z86.59 Personal history of other mental and behavioral disorders; Z86.73 Personal history of transient ischemic attack (TIA), and cerebral infarction without residual deficits
CPT/HCPCS: 36415; 71010; 80048; 80053; 80061; 82550; 82553; 82962; 83880; 84484; 85025; 85610; 85730; 93005; 96365; 96375; 97162; J1650; J1815; J2405; J7030

== ENCOUNTER 2016-09-23 11:37 | Inpatient (IN) | payer OTHER ==
[~2016-09-23] VITALS: Ht 175.3 cm; Wt 100.0 kg
[~2016-09-23 11:37] MED LIST changes: +AMIO200T2 PO; +DIGO125T19 PO; +FLUO20CA22 PO; -FLUO40CA10 PO; -FURO-110 PO; +HOMATROPINE PO; +HYDROCODONE PO; +LISI-313 PO; +MIRT15TA5 PO; -MIRT30TA PO; +POTA10TA15 PO
[2016-09-23 12:06] VITALS: Ht 175.3 cm; Wt 100.0 kg
--- NOTE | 2016-09-23 13:05 | ERA ---
ER Documentation Chief Complaint Date/Time DATE: 09/23/16 TIME: 13:04 Chief Complaint sob and hemoptysis HPI 51-year-old male with a history of a flutter with RVR, ventricular tachycardia, cardiomyopathy with EF 20% presenting with increasing shortness of breath, intermittent chest pain, and hemoptysis. He states that he has been having these symptoms for several weeks. He was admitted last week to the hospital and discharged home. He is currently on amiodarone for his flutter. He denies any recent drug use. No recent fevers, chills. He states that when he coughs there is arturo blood, however he has had no episodes here. ROS All systems reviewed and are negative except as per history of present illness. Medications Home Meds Active Scripts Digoxin* (Digox*) 125 Mcg Tablet, 0.125 MG PO DAILY for 28 Days, TAB Prov:ANDREAS FRANCISCO MD 09/17/16 Potassium Chloride (Klor-Con M10) 10 Meq Tab.prt.sr, 30 MEQ PO BID for 28 Days Prov:ANDREAS FRANCISCO MD 09/17/16 Amiodarone Hcl* (Amiodarone Hcl*) 200 Mg Tablet, 200 MG PO BID for 28 Days, TAB Prov:ANDREAS FRANCISCO MD 09/17/16 Mirtazapine* (Mirtazapine*) 15 Mg Tablet, 30 MG PO QHS for 14 Days, TAB Prov:ANDREAS FRANCISCO MD 09/17/16 Lisinopril* (Lisinopril*) 5 Mg Tablet, 2.5 MG PO DAILY for 28 Days, TAB Prov:ANDREAS FRANCISCO MD 09/17/16 Nitroglycerin* (Nitrostat*) 0.4 Mg Tab.subl, 1 TAB SL Q5M Y for CHEST PAIN for 28 Days Prov:ANDREAS FRANCISCO MD 08/09/16 Carvedilol* (Carvedilol*) 3.125 Mg Tablet, 3.125 MG PO BID, #30 TAB Prov:KACY JESSICA NP 04/10/16 Furosemide* (Furosemide*) 20 Mg Tablet, 20 MG PO BID, #30 TAB Prov:KACY JESSICA NP 04/10/16 Insulin Glargine* (Lantus*) 100 Unit/Ml Soln, 12 UNIT SC QHS, #1 VIAL Prov:PHILIPP YOUNG NP 02/11/16 Aspirin (Aspirin) 81 Mg Chew, 81 MG PO DAILY for 30 Days, TAB Prov:PHILIPP YOUNG NP 02/11/16 Reported Medications Apixaban* (Eliquis*) 5 Mg Tablet, 5 MG PO BID, TAB 09/23/16 Insulin Aspart* (Novolog Insulin Pen*) 100 Unit/Ml Soln, 5-7 UNIT SC AC MEALS, EA 09/23/16 Losartan Potassium* (Losartan Potassium*) 25 Mg Tablet, 25 MG PO DAILY, TAB 09/23/16 Albuterol Sulfate* (Ventolin HFA*) 18 Gm Hfa.aer.ad, 2 PUFF INHALATION Q4H, #1 INHALER 02/06/16 Discontinued Reported Medications Mirtazapine* (Remeron*) 30 Mg Tablet, 30 MG PO BID, TAB 02/06/16 Fluoxetine Hcl* (Prozac*) 40 Mg Capsule, 80 MG PO BID, CAP 02/06/16 Discontinued Scripts [Hydrocodone/Homatropine Liquid] 5 ML SYRUP No Conflict Check, 10 ML PO Q6 Y for COUGH for 7 Days Prov:ANDREAS FRANCISCO MD 09/17/16 Carvedilol* (Carvedilol*) 3.125 Mg Tablet, 3.125 MG PO BID for 28 Days, TAB Prov:ANDREAS FRANCISCO MD 09/17/16 Fluoxetine Hcl* (Fluoxetine Hcl*) 20 Mg Capsule, 80 MG PO DAILY for 14 Days, CAP Prov:ANDREAS FRANCISCO MD 09/17/16 Carvedilol* (Carvedilol*) 3.125 Mg Tablet, 3.125 MG PO BID for 30 Days, TAB Prov:ANDREAS FRANCISCO MD 09/17/16 Insulin Glargine* (Lantus*) 100 Unit/Ml Soln, 12 UNIT SC QHS, #1 VIAL Please dispense 15 syringes and needles. Prov:KACY JESSICA NP 04/10/16 Aspirin* (Aspirin* Chew) 81 Mg Tab.chew, 81 MG PO DAILY, #15 TAB.CHEW Prov:KACY JESSICA NP 04/10/16 Albuterol Sulfate* (Ventolin HFA*) 18 Gm Hfa.aer.ad, 2 PUFF INHALATION Q4H, #1 INHALER Prov:KACY JESSCIA NP 04/10/16 Furosemide* (Lasix*) 20 Mg Tablet, 20 MG PO BID for 30 Days, TAB Prov:PHILIPP YOUNG PROFILING MACHINE SET UP OPERATOR TOOL 02/11/16 Allergies Allergies: Coded Allergies: erythromycin base (Verified Allergy, Unknown, hives, SOB, 09/23/16) PMhx/Soc History of Surgery: Yes (R-knee, nose ) Anesthesia Reaction: No Hx Neurological Disorder: Yes (Hx of stroke) Hx Respiratory Disorders: No Hx Cardiac Disorders: Yes (Systolic heart failure, cardiomyopathy) Hx Psychiatric Problems: Yes (Bipolar, schizophrenia) Hx Miscellaneous Medical Probl: Yes (cardiomyopathy, hypotenision,BNP,anemia,V tach) Hx Alcohol Use: No Hx Substance Use: No (Former drug user, meth) Hx Tobacco Use: No Smoking Status: Former smoker FmHx Family History: No diabetes Physical Exam Vitals Vital Signs Date Time Temp Pulse Resp B/P Pulse Ox O2 Delivery O2 Flow Rate FiO2 09/23/16 13:38 3 09/23/16 13:30 118 18 122/102 98 Nasal Cannula 3.0 09/23/16 12:06 97.8 120 18 109/85 100 Physical Exam Const: No significant distress, speaking in full sentences, nontoxic Head: Atraumatic Eyes: Normal Conjunctiva ENT: Dry mucous membranes Neck: Full range of motion. No JVD. No meningismus. Resp: Clear to auscultation bilaterally, diminished breath sounds at the bases with fine crackles Cardio: Tachycardic with regular rate, no murmurs. 2+ distal pulses, equal bilaterally Abd: Soft, mild right upper quadrant tenderness, chronic per patient. No rebound or guarding, non distended. Normal bowel sounds Skin: No petechiae or rashes Back: No midline or flank tenderness Ext: No cyanosis, or edema Neur: Awake and alert and oriented 3, cranial nerves intact, moving all extremities Psych: Normal Mood and Affect Result Diagram: 09/23/16 1310 09/23/16 1310 Results 24 hrs Laboratory Tests Test 09/23/16 13:10 White Blood Count 9.410^3/ul Red Blood Count 4.3110^6/ul Hemoglobin 11.9g/dl Hematocrit 38.2% Mean Corpuscular Volume 88.6fl Mean Corpuscular Hemoglobin 27.6pg Mean Corpuscular Hemoglobin Concent 31.2g/dl Red Cell Distribution Width 21.1% Platelet Count 46298^3/UL Mean Platelet Volume 10.2fl Neutrophils % 69.8% Lymphocytes % 22.4% Monocytes % 6.9% Eosinophils % 0.2% Basophils % 0.3% Nucleated Red Blood Cells % 0.0/100WBC Neutrophils # 6.510^3/ul Lymphocytes # 2.110^3/ul Monocytes # 0.710^3/ul Eosinophils # 0.010^3/ul Basophils # 0.010^3/ul Nucleated Red Blood Cells # 0.010^3/ul Prothrombin Time 15.5Sec Prothrombin Time Ratio 1.2 INR International Normalized Ratio 1.22 Activated Partial Thromboplast Time 32.7Sec Sodium Level 142mmol/L Potassium Level 5.1mmol/L Chloride Level 107mmol/L Carbon Dioxide Level 22mmol/L Anion Gap 18 Blood Urea Nitrogen 21mg/dl Creatinine 1.01mg/dl Glucose Level 142mg/dl Calcium Level 9.3mg/dl Total Bilirubin 1.1mg/dl Direct Bilirubin 0.00mg/dl Indirect Bilirubin 1.1mg/dl Aspartate Amino Transf (AST/SGOT) 31IU/L Alanine Aminotransferase (ALT/SGPT) 21IU/L Alkaline Phosphatase 75IU/L Creatine Kinase 143IU/L Creatine Kinase Index 1.6 Creatinine Kinase MB (Mass) 2.34ng/ml Troponin I 0.016ng/ml B-Type Natriuretic Peptide 05276HN/ML Total Protein 8.1g/dl Albumin 3.8g/dl Globulin 4.30g/dl Albumin/Globulin Ratio 0.88 Current Medications Medications (Trade) Dose Ordered Sig/Bradley Route PRN Reason Start Time Stop Time Status Last Admin Dose Admin Metoprolol Tartrate (Lopressor) 5 mg ONCE ONCE IV 09/23/16 13:30 09/23/16 13:31 DC 09/23/16 13:30 Metoprolol Tartrate (Lopressor) 5 mg ONCE ONCE IV 09/23/16 14:30 09/23/16 14:31 DC 09/23/16 14:17 Ondansetron HCl (Zofran Inj) 4 mg ER BRIDGE PRN IV NAUSEA AND/OR VOMITING 09/23/16 15:00 09/24/16 14:59 Acetaminophen (Tylenol Tab) 650 mg ER BRIDGE PRN PO MILD PAIN/FEVER 09/23/16 15:00 09/24/16 14:59 IV Flush 10 ml 10 ml STK-MED ONCE .ROUTE 09/23/16 14:57 09/23/16 14:58 DC Sodium Chloride 100 ml @ ud STK-MED ONCE .ROUTE 09/23/16 14:57 09/23/16 14:58 DC Iohexol (Omnipaque) 100 ml @ ud STK-MED ONCE .ROUTE 09/23/16 14:57 09/23/16 14:58 DC Procedures/MDM EMERGENT LABS AND DIAGNOSTIC STUDIES: Lab Results above were reviewed and interpreted by me. CBC unremarkable BMP with mildly elevated BUN 12-lead EKG was interpreted by Katherine Elaine MD: EKG #1: Rate/Rhythm: A flutter with 2-1 AV conduction with rate 121 QRS, ST, T-waves: Left axis deviation ,no changes consistent w/ acute ischemia Impression: No evidence of ischemia or arrhythmia, poor R-wave progression EKG #2: Rate/Rhythm: A flutter with 2-1 AV conduction with rate 114 QRS, ST, T-waves: Left axis deviation ,no changes consistent w/ acute ischemia Impression: No evidence of ischemia or arrhythmia, poor R-wave progression Radiology Results as interpreted by Radiology below were reviewed by SCynthia Elaine MD: Chest x-ray: IMPRESSION: 1. Mild cardiomegaly. 2. Clear lungs. Initial Nursing notes reviewed. Previous Medical Records requested via the Electronic Health Record. EMERGENCY DEPARTMENT COURSE / MEDICAL DECISION MAKING: Patient is presenting with chest pain, shortness of breath, and reported hemoptysis. Vitals are notable for tachycardia but otherwise unremarkable. EKG showed a flutter with RVR. 2 doses of metoprolol 5 mg IV were given with improvement in his rate. X-ray does not show evidence of acute heart failure, which is consistent with my exam. There is no evidence of pulmonary mass or pneumonia. I suspect the patient's symptoms are secondary to his chronic CHF, however I cannot rule out ACS or pulmonary embolism at this time. CTPA was ordered to evaluate for embolism. Initial cardiac enzymes were within normal limits. There is no ischemia on his EKGs. I spoke with Dr. Rodríguez, who will evaluate the patient. At this time he is not stable for discharge and will be admitted to the hospital. At time of signout, CTPA was still pending. Critical Care Time: 35 minutes Treatments/Evaluations: Close monitoring and treatment of unstable vital signs, cardiorespiratory, and neurologic status, while maintaining tight balance of fluid, respiratory, and cardiac interventions. This time includes discussing the case with the patient and the patients family. This time does not include all procedures stated elsewhere in this record. This time also includes reviewing old records, labs and radiological studies. This time includes examining and re-examining the patient. Additionally, this time also includes arranging care with admitting and consulting physicians. Accepting Care Team: Current data and ongoing care discussed. Time: Time of admission Primary Provider: Jose L Consulting: Marcos Outstanding Data: Urine drug screen, CTPA Departure Diagnosis: Primary Impression: Hemoptysis Additional Impressions: Dyspnea Qualified Code: R06.02 - Shortness of breath Chest pain Qualified Code: R07.9 - Chest pain, unspecified type Condition: Critical SANJUANA ELAINE MD Sep 23, 2016 13:05
[2016-09-23] MEDS ORDERED: NOVO3I SC (13:13)
[2016-09-23] MEDS ORDERED: LOSA25TA5 PO (13:13)
[2016-09-23] MEDS ORDERED: APIX5TAB PO (13:14)
[2016-09-23 13:20] LABS: ADD SCAN DIFF NO
[2016-09-23 13:22] LABS: BASOPHILS % 0.3 % (0.0-2.0); EOSINOPHILS % 0.2 % (0.0-7.0); HEMATOCRIT 38.2 % (42.0-52.0); HEMOGLOBIN 11.9 g/dl (14.0-18.0); LYMPHOCYTES # 2.1 10^3/ul (0.8-2.9); LYMPHOCYTES % 22.4 % (15.0-51.0); MEAN CORPUSCULAR HEMOGLOBIN 27.6 pg (29.0-33.0); MEAN CORPUSCULAR HGB CONC 31.2 g/dl (32.0-37.0); MEAN CORPUSCULAR VOLUME 88.6 fl (82.0-101.0); MEAN PLATELET VOLUME 10.2 fl (7.4-10.4); MONOCYTE # 0.7 10^3/ul (0.3-0.9); MONOCYTES % 6.9 % (0.0-11.0); NEUTROPHIL # 6.5 10^3/ul (1.6-7.5); NEUTROPHILS % 69.8 % (39.0-77.0); PLATELET COUNT 330 10^3/UL (140-415); RED BLOOD COUNT 4.31 10^6/ul (4.70-6.10); RED CELL DISTRIBUTION WIDTH 21.1 % (11.5-14.5); WHITE BLOOD COUNT 9.4 10^3/ul (4.8-10.8)
[2016-09-23] MEDS ORDERED: METOPROLOL 5 MG INJ IV ONE ×2 (13:30→14:30)
[2016-09-23 13:31] LABS: INR 1.22; PARTIAL THROMBOPLASTIN TIME 32.7 Sec (25.0-35.0); PROTIME 15.5 Sec (12.2-14.2); PT RATIO 1.2
[2016-09-23 13:33] LABS: ALBUMIN 3.8 g/dl (3.3-4.9)
[2016-09-23 13:34] LABS: POTASSIUM 5.1 mmol/L (3.5-5.1)
[2016-09-23 13:36] LABS: ALBUMIN/GLOBULIN RATIO 0.88; BILIRUBIN,INDIRECT 1.1 mg/dl (0-1.1); BILIRUBIN,TOTAL 1.1 mg/dl (0.2-1.3); CREATININE 1.01 mg/dl (0.61-1.24); TOTAL PROTEIN 8.1 g/dl (6.1-8.1)
[2016-09-23 13:37] LABS: CALCIUM 9.3 mg/dl (8.4-10.2)
[2016-09-23 13:46] LABS: CK-MB 2.34 ng/ml (0.0-2.4)
[2016-09-23 13:49] LABS: TROPONIN-I 0.016 ng/ml (0.00-0.12)
--- NOTE | 2016-09-23 13:50 | RADRPT ---
PROCEDURE: XR Chest. CLINICAL INDICATION: Hemoptysis. TECHNIQUE: Single frontal view. COMPARISON: 08/11/2016. FINDINGS: The lungs are clear. The heart is mildly enlarged. There is no pleural effusion. There is no pneumothorax. IMPRESSION: 1. Mild cardiomegaly. 2. Clear lungs. RPTAT: QQ .Vu Ashley MD, MD Date Time Electronically viewed and signed by .Vu Ashley MD, MD on 09/23/2016 13:50 .R/
[2016-09-23] MEDS ORDERED: IOHEXOL 100 ML ONE (14:57)
[2016-09-23] MEDS ORDERED: SOD CHLORIDE 0.9% 100 ML ONE (14:57)
[2016-09-23] MEDS ORDERED: ACETAMINOPHEN 325 MG TAB PO PRN ×2 (15:00→23:30)
[2016-09-23] MEDS ORDERED: ONDANSETRON 4 MG INJ IV PRN ×2 (15:00→23:30)
--- NOTE | 2016-09-23 15:53 | RADRPT ---
PROCEDURE: CTA Chest and pulmonary angiogram. CLINICAL INDICATION: Chest pain and shortness of breath. TECHNIQUE: CT scan of the chest and CT pulmonary angiogram was performed on a multidetector high-r Cerephexolution CT scanner. High-resolution thin slice coronal and sagittal imaging was obtained from the axial source images. 3-D volumetric rendered post processing was performed as well. The patient w as examined following the uncomplicated intravenous administration of 100 cc of Omnipaque-350. The images were reviewed on a PACS workstation. The total exam CTDI equals 25.35, and 15.73 and the tota l exam DLP equals 605.85 mGy-cm. One or more of the following dose reduction techniques were used: Automated exposure control. Adjustment of the mA and/or kV according to patient size. Use of iterative reconstruction technique. COMPARISON: No prior studies are available for comparison. FINDINGS: CT chest: There are bilateral diffuse patchy infiltrates. There is a trace right pleural effusion with mild b asilar atelectasis. The central tracheobronchial tree is clear. The mediastinum is unremarkable without evidence for mass or lymphadenopathy. The vascular structur es of the mediastinum are normal in course and caliber. There is cardiomegaly without pericardial th ickening or effusion. There is dilatation of the right atrium with reflux of the contrast into the h epatic veins and IVC suggesting right heart failure. The axillary, subpectoral, and supraclavicular regions are unremarkable. Imaging obtained through the upper abdomen is remarkable for small ascites in the upper abdomen. Th e adrenal glands are symmetrically normal. The surrounding chest wall is unremarkable. The osseous structures are remarkable for degenerative spondylosis of the spine. CT pulmonary angiogram: No thrombus, clot, filling defect, or pulmonary web is identified. The pulmonary arteries are ho l in caliber and morphology. No filling defect is present to suggest pulmonary embolism. There is no evidence for pulmonary arterial hypertension. IMPRESSION: 1. No pulmonary emboli. 2. Bilateral multifocal patchy acute infiltrates. 3. Cardiomegaly. Marked dilatation of the right atrium with reflux of the contrast into the hepati c veins and IVC suggesting right heart failure. 4. Trace right pleural effusion with mild basilar atelectasis. 5. Ascites in the upper abdomen. RPTAT: BB .Nati Arguello MD, MD Date Time Electronically viewed and signed by .Nati Arguello MD, MD on 09/23/2016 15:53 .O/
--- NOTE | 2016-09-23 16:49 | CONS ---
DATE OF ADMISSION: 09/23/2016 DATE OF CONSULTATION: 09/23/2016 REASON FOR CONSULTATION: 1. Congestive heart failure exacerbation. 2. Atrial flutter. REQUESTING PHYSICIAN: Richard Francisco MD. HISTORY OF PRESENT ILLNESS: Mr. Hopkins is a 51-year-old male with a history of severely depresse d left ventricular ejection fraction, last only approximately 25% by echo February 2016 and 14% by Lexiscan February 2016 with no ischemia, hypertension, substance abuse, episodes of ventricular tac hycardia, prior cardiac arrest, recent admit for congestive heart failure. He now presents with rec urrent bouts of shortness of breath. In addition, complains of hemoptysis. Upon arrival, temperatu re of 97.4, blood pressure 126/94, pulse 69, respiratory 18, satting 99%. The patient's labs, other degroot, white count of 10, hemoglobin 11.6, platelet count of 320, sodium of 144, potassium 4.4, creat inine 0.89, BUN 20. Troponin negative. BNP of 21,200. INR of 1.32. The patient underwent a chest x-ray revealing mild cardiomegaly and left perihilar infiltrate. The patient's electrocardiogram r evealed rhythm most consistent with atrial flutter with variable block, rate of 120 with left axis d eviation, borderline anterior progression and nonspecific ST and T-wave abnormalities diffusely. Th e patient was treated with Zofran, Tylenol, IV push metoprolol and now awaits admit to the floor for further evaluation and treatment. PAST MEDICAL HISTORY: As above in HPI. MEDICATIONS PRIOR TO ADMIT: 1. Albuterol. 2. Apixaban 5 mg p.o. b.i.d. 3. Amiodarone 200 mg p.o. b.i.d. 4. Carvedilol 3.125 mg p.o. b.i.d. 5. Digoxin 0.125 mg daily. 6. Lisinopril 2.5 mg daily. 7. Losartan 25 mg daily. 8. Aspirin 81 mg daily. 9. Mirtazapine 30 mg at bedtime. 10. Lasix 20 mg p.o. b.i.d. 11. Potassium chloride 30 mEq b.i.d. 12. Lantus insulin. ALLERGIES: ERYTHROMYCIN. SOCIAL HISTORY: History of substance abuse. No current tobacco, social ETOH. FAMILY HISTORY: Negative for sudden cardiac or early CAD. REVIEW OF SYSTEMS: As above in HPI. CONSTITUTIONAL: No fevers, chills. PULMONARY: Positive shortness breath. CARDIOVASCULAR: Congestive heart failure. GASTROINTESTINAL: Positive hemoptysis. GENITOURINARY: No hematuria. MUSCULOSKELETAL: Degenerative joint disease. PSYCHIATRIC: The patient denies depression. NEUROLOGIC: No documented history of CVA. PHYSICAL EXAMINATION VITAL SIGNS: Temperature 97.8, blood pressure most recently 109/85, pulse in the low 100s, respirat ion 18, satting 100% on 3 liters. GENERAL: The patient is alert, awake, complaining of shortness of breath, hemoptysis. NECK: JVP approximately 9 . CHEST: Decreased breath sounds at bases bilaterally. HEART: Irregularly irregular rhythm, I/ systolic murmur. ABDOMEN: Positive bowel sounds, soft. EXTREMITIES: Trace edema, 1+ pulses bilaterally, posterior tibial. LABORATORY DATA: As above in HPI with most recently from today: Sodium 142, potassium 5.1, creatin ine 1.0, BUN of 21. BNP of 14,100. Troponin negative. White count 9.4, hemoglobin 29, platelet co unt of 330. IMAGING STUDIES: As above in HPI. No further imaging studies for my review at this time. ECG: As above in HPI. No further electrocardiograms for my review at this time. IMPRESSION: 1. Congestive heart failure exacerbation, systolic, acute on chronic. 2. History of cardiomyopathy with severely depressed left ventricular ejection fraction appro ximately 25% by echo, less than 20% by stress, no ischemia, February 2016. 3. Atrial flutter with intermittent rapid ventricular response. 4. Report hemoptysis and has coagulopathy secondary to apixaban taken for prevention of thromboembo lic complications and atrial flutter. 5. History of substance abuse. 6. Anemia. RECOMMENDATIONS: 1. At this time, would admit patient to telemetry monitoring to follow rhythm and rate control clos thiago. 2. Would resume the patient's baseline carvedilol for heart rate control as well as continue amioda ancelmo at this time in an attempt to convert the patient from atrial flutter to sinus rhythm and would consider holding the patient's apixaban if the patient truly has hemoptysis at this time and during further evaluation. I would continue the patient's baby aspirin at this time to give the patient a dditional dose of IV push digoxin to improve overall heart rate control and will continue the patien t on low dose LAURA inhibitor. 3. To complete the patient, rule out for myocardial infarction to ensure the patient's constellatio n of symptoms is not resulted in or not the result of an acute myocardial infarction. 4. Continue the patient's Lasix diuresis at this time. 5. Further evaluation of the patient's hemoptysis per PMD and alternative consultations. Thank you for allowing me to take part in the care of this patient. I will continue to follow along very closely with you. Further recommendations will be made as the patient progresses through his inpatient hospital clinical course. Dictated By: DEXTER VERDUZCO/NTS Conf#: [id number] DID#: [id number] CC: RICHARD FRANCISCO MD;*EndCC*
[2016-09-23] MEDS ORDERED: NITROGLYCERIN (SL) 0.4 MG TAB SL PRN (19:00)
[2016-09-23] MEDS ORDERED: FUROSEMIDE 20 MG TAB PO SCH (20:00)
[2016-09-23 20:29] VITALS: PULSE 114
[2016-09-23] MEDS: ALBUTEROL 18 GM INHALER INH SCH (21:00)
[2016-09-23 21:06] VITALS: BP 125/85; PULSE 64; RESP 26
--- NOTE | 2016-09-23 23:05 | QN ---
Documentation Comment [id number] ANDREAS FRANCISCO MD Sep 23, 2016 23:05
[2016-09-23] MEDS ORDERED: DOCUSATE SODIUM 100 MG CAP PO PRN (23:30)
[2016-09-23] MEDS ORDERED: ACETAMINOPHEN 650 MG SUPP PR PRN (23:30)
[2016-09-23] MEDS ORDERED: MAGNESIUM HYDROXIDE 30ML CUP PO PRN (23:30)
[2016-09-23] MEDS ORDERED: NACL 0.9% 3 ML SYG IV SCH (23:30)
[2016-09-23] MEDS ORDERED: HYDROCODONE/APAP (5/325) TAB PO PRN (23:30)
[2016-09-23] MEDS ORDERED: BISACODYL (EC) 5 MG TAB PO PRN (23:30)
[2016-09-24] VITALS (10 sets, daily range): BP systolic 108–121; BP diastolic 67–84; PULSE 79–119; RESP 16–19
[2016-09-24 00:28] LABS: CK-MB 1.73 ng/ml (0.0-2.4)
[2016-09-24 00:29] LABS: TROPONIN-I 0.014 ng/ml (0.00-0.12)
[2016-09-24] MEDS: MIRTAZAPINE 15 MG TAB PO SCH ×2 (00:39→21:00)
[2016-09-24] MEDS: POTASSIUM CHLORIDE (SR) 10 MEQ TAB PO SCH ×3 (00:40→22:05)
[2016-09-24] MEDS: FUROSEMIDE 20 MG INJ IV SCH ×3 (00:40→17:24)
[2016-09-24] MEDS: AMIODARONE 200 MG TAB PO SCH ×3 (00:40→22:05)
[2016-09-24] MEDS: ALBUTEROL 18 GM INHALER INH SCH ×6 (01:00→21:00)
[2016-09-24] MEDS: HYDROCODONE/HOMATROPINE 5ML CUP PO PRN ×2 (01:50→22:04)
[2016-09-24] MEDS ORDERED: PANTOPRAZOLE 40 MG INJ IV SCH (06:00)
--- NOTE | 2016-09-24 06:34 | HP ---
DATE OF ADMISSION: 09/23/2016 HISTORY OF PRESENT ILLNESS: A 51-year-old male who was recently discharged from this hospital with a diagnosis of atrial flutter with rapid ventricular response, status post hypotension, cardiomyopathy, ejection fraction 20%, elevated BNP, anemia, history of substance abuse, history of V-tach, history of diabetes mellitus, hyponatremia. The patient presented with palpitations, had atrial flutter with rapid ventricular response and is being admitted for further management. The patient's recorded blood pressure 125/60, hematocrit 38.2, and chest x-ray shows mild cardiomegaly, clear lungs. Chest CT scan shows no pulmonary emboli, bilateral multifocal infiltrate, cardiomegaly, trace right pleural effusion with mild basilar atelectasis in the upper abdomen. PAST MEDICAL HISTORY: CHF; CAD; cardiomyopathy, nonischemic; anemia. ALLERGY HISTORY: unk SOCIAL HISTORY: Right now patient denies any smoking, drinking and drugs but has history of drug use in the past. MEDICATIONS: The patient is on: 1. Albuterol. 2. Amiodarone. 3. Apixaban. 4. Aspirin, 5. Coreg. 6. Digoxin. 7. Lasix. 8. Insulin. 9. Lantus. 10. Lisinopril. 11. Losartan. 12. Mirtazapine. 13. Nitroglycerin. 14. Potassium. REVIEW OF SYSTEMS: HEENT: Unremarkable. RESPIRATORY: Short of breath, cough. CARDIOVASCULAR: chest pain, palpitation. ABDOMEN: Unremarkable. EXTREMITIES: _+ edema. CENTRAL NERVOUS SYSTEM: Unremarkable. PHYSICAL EXAMINATION: GENERAL: The patient is awake and alert. VITAL SIGNS: Blood pressure 125/80. HEENT: Head is atraumatic, normocephalic. Pupils equal, reactive. NECK: Supple. No JVD. LUNGS: A few rhonchi at bases. CARDIOVASCULAR: S1, S2 normal. Irregular ____ noted. ABDOMEN: Soft, nontender. Bowel sounds present. No palpable mass. EXTREMITIES: No cyanosis, clubbing. Edema positive. LABORATORY DATA: As mentioned above. EKG will be reviewed once available. IMPRESSION: 1. Chest pain. 2. r/o mi infarction. 3. Atrial flutter with rapid ventricular response. 4. Anemia. 5. Cardiomyopathy. 6. Atherosclerotic heart disease. 7. History of dyslipidemia. 8. History of drug abuse. PLAN: Continue home medications. Cardiology consultation. Troponin will be sent. Cardiac diet. Other recommendations per junior linux administrator on the case. Dictated By: ANDREAS FRANCISCO MD BS/EDILIA Conf#: [id number] DID#: [id number] MTDD
[2016-09-24 07:06] LABS: ADD SCAN DIFF NO
[2016-09-24 07:08] LABS: BASOPHILS % 0.3 % (0.0-2.0); EOSINOPHILS # 0.1 10^3/ul (0.0-0.5); HEMOGLOBIN 11.1 g/dl (14.0-18.0); LYMPHOCYTES # 2.1 10^3/ul (0.8-2.9); LYMPHOCYTES % 22.8 % (15.0-51.0); MEAN CORPUSCULAR HEMOGLOBIN 27.5 pg (29.0-33.0); MEAN CORPUSCULAR HGB CONC 30.8 g/dl (32.0-37.0); MEAN CORPUSCULAR VOLUME 89.1 fl (82.0-101.0); MEAN PLATELET VOLUME 10.4 fl (7.4-10.4); MONOCYTE # 0.7 10^3/ul (0.3-0.9); MONOCYTES % 7.9 % (0.0-11.0); NEUTROPHIL # 6.2 10^3/ul (1.6-7.5); NEUTROPHILS % 67.2 % (39.0-77.0); PLATELET COUNT 325 10^3/UL (140-415); RED BLOOD COUNT 4.04 10^6/ul (4.70-6.10); RED CELL DISTRIBUTION WIDTH 21.2 % (11.5-14.5); WHITE BLOOD COUNT 9.2 10^3/ul (4.8-10.8)
[2016-09-24 07:28] LABS: ALBUMIN 3.2 g/dl (3.3-4.9)
[2016-09-24 07:29] LABS: POTASSIUM 4.1 mmol/L (3.5-5.1)
[2016-09-24 07:31] LABS: ALBUMIN/GLOBULIN RATIO 0.78; BILIRUBIN,INDIRECT 0.9 mg/dl (0-1.1); BILIRUBIN,TOTAL 0.9 mg/dl (0.2-1.3); CREATININE 1.07 mg/dl (0.61-1.24); TOTAL PROTEIN 7.3 g/dl (6.1-8.1)
[2016-09-24 07:32] LABS: CALCIUM 9.1 mg/dl (8.4-10.2)
[2016-09-24 08:08] LABS: TROPONIN-I 0.012 ng/ml (0.00-0.12)
[2016-09-24 08:23] LABS: CK-MB 1.73 ng/ml (0.0-2.4)
[2016-09-24] MEDS: ASPIRIN (EC) 325 MG TAB PO SCH (08:57)
[2016-09-24] MEDS: LISINOPRIL 5 MG TAB PO SCH (08:58)
[2016-09-24] MEDS ORDERED: ASPIRIN 81 MG TAB PO SCH (09:00)
[2016-09-24] MEDS: DIGOXIN 0.125 MG TAB PO SCH (12:33)
--- NOTE | 2016-09-24 17:58 | CONS ---
Date/Time of Note Date/Time of Note DATE: 09/24/16 TIME: 17:52 Assessment/Plan Assessment/Plan Chief Complaint/Hosp Course IMPRESSION: 1. Congestive heart failure exacerbation, systolic, acute on chronic. 2. History of cardiomyopathy with severely depressed left ventricular ejection fraction of approximately 25% by echo, less than 20% by stress, no ischemia, February 2016. 3. Atrial flutter with intermittent rapid ventricular response. 4. Report hemoptysis and has coagulopathy secondary to apixaban taken for prevention of thromboembolic complications and atrial flutter. 5. History of substance abuse. 6. Anemia. Recc: -Tele -serial ecg's -Continue current digoxin and check digoxin level -Continue current ACEI an increase BB as tolerated -Contiue amiodarone in attempt to convert to SR and will consider CAMERON/DCCV as necessary to improve hemodynamics -Continue asa -Continue lasix -if no recurrent hemoptysis will resume apixaban Problems: Consultation Date/Type/Reason Admit Date/Time Sep 23, 2016 at 14:48 Initial Consult Date 09/23/16 Type of Consultation: Cardiology Reason for Consultation AFL/CHF Referring Provider: ANDREAS FRANCISCO MD Exam/Review of Systems Vital Signs Vitals Vital Signs Date Time Temp Pulse Resp B/P Pulse Ox O2 Delivery O2 Flow Rate FiO2 09/24/16 16:18 118 09/24/16 15:00 98.0 19 118/67 96 09/24/16 07:52 Nasal Cannula 2.0 Intake and Output 09/23/16 09/23/16 09/24/16 15:00 23:00 07:00 Output Total 1650 ml Balance -1650 ml Exam Review of Systems: CONSTITUTIONAL: No fevers, chills. PULMONARY: No sob CARDIOVASCULAR: No chest pain/palpitations GASTROINTESTINAL: No nausea/vomiting. GENITOURINARY: No hematuria/dysuria. MUSCULOSKELETAL: No myagias/arthalgias. PSYCHIATRIC: The patient denies depression. NEUROLOGIC: No weakness Constitutional: alert, oriented Psych: no complaints Head: normocephalic ENMT: mucosa pink and moist Neck: jvd (9 cm watyer), supple Respiratory: diminished breath sounds (at bases/B) Cardiovascular: regular rate and rhythm Gastrointestinal: non-tender, soft Musculoskeletal: muscle tone (normal) Extremities: edema (trace/B) Neurological: lethargic Results Result Diagram: 09/24/16 0642 09/24/16 0642 Results 24 hrs Laboratory Tests Test 09/23/16 23:45 09/24/16 05:06 09/24/16 06:42 Creatine Kinase 98 101 Creatine Kinase Index 1.8 1.7 Creatinine Kinase MB (Mass) 1.73 1.73 Troponin I 0.014 0.012 White Blood Count 9.2 Red Blood Count 4.04 L Hemoglobin 11.1 L Hematocrit 36.0 L Mean Corpuscular Volume 89.1 Mean Corpuscular Hemoglobin 27.5 L Mean Corpuscular Hemoglobin Concent 30.8 L Red Cell Distribution Width 21.2 H Platelet Count 325 Mean Platelet Volume 10.4 Neutrophils % 67.2 Lymphocytes % 22.8 Monocytes % 7.9 Eosinophils % 1.0 Basophils % 0.3 Nucleated Red Blood Cells % 0.0 Neutrophils # 6.2 Lymphocytes # 2.1 Monocytes # 0.7 Eosinophils # 0.1 Basophils # 0.0 Nucleated Red Blood Cells # 0.0 Sodium Level 142 Potassium Level 4.1 Chloride Level 109 Carbon Dioxide Level 24 Anion Gap 13 Blood Urea Nitrogen 23 H Creatinine 1.07 Glucose Level 95 # Calcium Level 9.1 Total Bilirubin 0.9 Direct Bilirubin 0.00 Indirect Bilirubin 0.9 Aspartate Amino Transf (AST/SGOT) 19 Alanine Aminotransferase (ALT/SGPT) 26 Alkaline Phosphatase 67 Total Protein 7.3 Albumin 3.2 L Globulin 4.10 H Albumin/Globulin Ratio 0.78 Medications Medications Current Medications Aspirin (Ecotrin) 325 mg DAILY PO Last administered on 09/24/16 08:57; Admin Dose 325 MG; Start 09/24/16 at 09:00 Amiodarone HCl (Cordarone) 200 mg BID PO Last administered on 09/24/16 08:57; Admin Dose 200 MG; Start 09/23/16 at 21:00 Carvedilol (Coreg) 3.125 mg BID PO Last administered on 09/24/16 08:58; Admin Dose 3.125 MG; Start 09/23/16 at 21:00 Digoxin (Digoxin) 0.125 mg DAILY@13 PO Last administered on 09/24/16 12:33; Admin Dose 0.125 MG; Start 09/24/16 at 13:00 Lisinopril (Zestril) 2.5 mg DAILY PO Last administered on 09/24/16 08:58; Admin Dose 2.5 MG; Start 09/24/16 at 09:00 Mirtazapine (Remeron) 30 mg QHS PO Last administered on 09/24/16 00:39; Admin Dose 30 MG; Start 09/23/16 at 21:00 Nitroglycerin (Nitroglycerin (Sl Tab) 0.4 Mg) 1 tab Q5M PRN SL CHEST PAIN; Start 09/23/16 at 19:00 Potassium Chloride (Klor-Con 10) 30 meq BID PO Last administered on 09/24/16 08:57; Admin Dose 30 MEQ; Start 09/23/16 at 21:00 Ondansetron HCl (Zofran Inj) 4 mg Q6H PRN IV NAUSEA AND/OR VOMITING; Start at 23:30 Acetaminophen (Tylenol Tab) 650 mg Q6H PRN PO PAIN LEVEL 1-3 OR FEVER; Start at 23:30 Acetaminophen (Tylenol Supp) 650 mg Q6H PRN [place] PAIN LEVEL 1-3 OR FEVER; Start 09/23/16 at 23:30 Acetaminophen/ Hydrocodone Bitart ([place] (5/325)) 1 tab Q6H PRN PO MODERATE PAIN LEVEL 4-6; Start 09/23/16 at 23:30 Docusate Sodium (Colace) 100 mg Q12H PRN PO CONSTIPATION; Start 09/23/16 at 23: 30 Magnesium Hydroxide (Milk Of Mag) 30 ml DAILY PRN PO CONSTIPATION; Start at 23:30 Bisacodyl (Dulcolax) 5 mg DAILY PRN PO CONSTIPATION; Start 09/23/16 at 23:30 Hydrocodone Bit/ Homatropine Methylb (Hycodan Liquid) 5 ml BID PRN PO cough Last administered on 09/24/16 01:50; Admin Dose 5 ML; Start 09/24/16 at 00:00 Pantoprazole (Protonix Tab) 40 mg DAILY@06 PO ; Start 09/25/16 at 06:00 DEXTER ZAMORANO Sep 24, 2016 17:58
--- NOTE | 2016-09-24 19:50 | PN ---
Date/Time of Note Date/Time of Note DATE: 09/24/16 TIME: 19:49 Assessment/Plan VTE Prophylaxis VTE Prophylaxis Intervention: other Lines/Catheters IV [facility] Type [facility] Saline Lock Urinary Cath still in place: No Assessment/Plan Chief Complaint/Hosp Course IMPRESSION: 1. Chest pain. 2. r/o infarction. 3. Atrial flutter with rapid ventricular response. 4. Anemia. 5. Cardiomyopathy. 6. Atherosclerotic heart disease. 7. History of dyslipidemia. 8. History of drug abuse. 9 pul edema plan lasix ck ct chest Problems: Subjective 24 Hr Interval Summary Subjective hx not possible: other (sob+,cough+) Exam/Review of Systems Vital Signs Vitals Vital Signs Date Time Temp Pulse Resp B/P Pulse Ox O2 Delivery O2 Flow Rate FiO2 09/24/16 16:18 118 09/24/16 15:00 98.0 19 118/67 96 09/24/16 07:52 Nasal Cannula 2.0 Intake and Output 09/23/16 09/23/16 09/24/16 15:00 23:00 07:00 Output Total 1650 ml Balance -1650 ml Exam Neck: supple Respiratory: diminished breath sounds Cardiovascular: regular rate and rhythm Gastrointestinal: soft Extremities: normal pulses Results Result Diagram: 09/24/16 0642 09/24/16 0642 Results 24 hrs Laboratory Tests Test 09/23/16 23:45 09/24/16 05:06 09/24/16 06:42 Creatine Kinase 98 101 Creatine Kinase Index 1.8 1.7 Creatinine Kinase MB (Mass) 1.73 1.73 Troponin I 0.014 0.012 White Blood Count 9.2 Red Blood Count 4.04 L Hemoglobin 11.1 L Hematocrit 36.0 L Mean Corpuscular Volume 89.1 Mean Corpuscular Hemoglobin 27.5 L Mean Corpuscular Hemoglobin Concent 30.8 L Red Cell Distribution Width 21.2 H Platelet Count 325 Mean Platelet Volume 10.4 Neutrophils % 67.2 Lymphocytes % 22.8 Monocytes % 7.9 Eosinophils % 1.0 Basophils % 0.3 Nucleated Red Blood Cells % 0.0 Neutrophils # 6.2 Lymphocytes # 2.1 Monocytes # 0.7 Eosinophils # 0.1 Basophils # 0.0 Nucleated Red Blood Cells # 0.0 Sodium Level 142 Potassium Level 4.1 Chloride Level 109 Carbon Dioxide Level 24 Anion Gap 13 Blood Urea Nitrogen 23 H Creatinine 1.07 Glucose Level 95 # Calcium Level 9.1 Total Bilirubin 0.9 Direct Bilirubin 0.00 Indirect Bilirubin 0.9 Aspartate Amino Transf (AST/SGOT) 19 Alanine Aminotransferase (ALT/SGPT) 26 Alkaline Phosphatase 67 Total Protein 7.3 Albumin 3.2 L Globulin 4.10 H Albumin/Globulin Ratio 0.78 Medications Medications Current Medications Aspirin (Ecotrin) 325 mg DAILY PO Last administered on 09/24/16 08:57; Admin Dose 325 MG; Start 09/24/16 at 09:00 Digoxin (Digoxin) 0.125 mg DAILY@13 PO Last administered on 09/24/16 12:33; Admin Dose 0.125 MG; Start 09/24/16 at 13:00 Lisinopril (Zestril) 2.5 mg DAILY PO Last administered on 09/24/16 08:58; Admin Dose 2.5 MG; Start 09/24/16 at 09:00 Mirtazapine (Remeron) 30 mg QHS PO Last administered on 09/24/16 00:39; Admin Dose 30 MG; Start 09/23/16 at 21:00 Nitroglycerin (Nitroglycerin (Sl Tab) 0.4 Mg) 1 tab Q5M PRN SL CHEST PAIN; Start 09/23/16 at 19:00 Potassium Chloride (Klor-Con 10) 30 meq BID PO Last administered on 09/24/16 08:57; Admin Dose 30 MEQ; Start 09/23/16 at 21:00 Ondansetron HCl (Zofran Inj) 4 mg Q6H PRN IV NAUSEA AND/OR VOMITING; Start at 23:30 Acetaminophen (Tylenol Tab) 650 mg Q6H PRN PO PAIN LEVEL 1-3 OR FEVER; Start at 23:30 Acetaminophen (Tylenol Supp) 650 mg Q6H PRN [place] PAIN LEVEL 1-3 OR FEVER; Start 09/23/16 at 23:30 Acetaminophen/ Hydrocodone Bitart ([place] (5/325)) 1 tab Q6H PRN PO MODERATE PAIN LEVEL 4-6; Start 09/23/16 at 23:30 Docusate Sodium (Colace) 100 mg Q12H PRN PO CONSTIPATION; Start 09/23/16 at 23: 30 Magnesium Hydroxide (Milk Of Mag) 30 ml DAILY PRN PO CONSTIPATION; Start at 23:30 Bisacodyl (Dulcolax) 5 mg DAILY PRN PO CONSTIPATION; Start 09/23/16 at 23:30 Hydrocodone Bit/ Homatropine Methylb (Hycodan Liquid) 5 ml BID PRN PO cough Last administered on 09/24/16t 01:50; Admin Dose 5 ML; Start 09/24/16 at 00:00 Pantoprazole (Protonix Tab) 40 mg DAILY@06 PO ; Start 09/25/16 at 06:00 Amiodarone HCl (Cordarone) 200 mg Q8 PO ; Start 09/24/16 at 22:00 Carvedilol (Coreg) 6.25 mg BID PO ; Start 09/24/16 at 21:00 ANDREAS FRANCISCO MD Sep 24, 2016 19:50
--- NOTE | 2016-09-24 23:08 | RADRPT ---
PROCEDURE: CT chest without contrast CLINICAL INDICATION: Shortness of breath TECHNIQUE: CT scan of the chest with contrast was performed without intravenous contrast. Coronal and sagittal images were reformatted. The CTDIvol = 13.26 mGy and DLP = 554.77 mGycm. COMPARISON: CT chest 09/23/2016 FINDINGS: Lungs, airway and pleura: The trachea and bronchi are patent without bronchiectasis, mild peribronc hial thickening predominate the lower lobes is similar to the previous examination. Incidental punct ate calcified granuloma in the medial and posterior aspects left lower lobe is present. Scattered a reas of patchy semi solid alveolar infiltrates including ground-glass opacities of the left upper lo be are again noted, slightly decreased in extent compared to the previous examination. Additional a reas of patchy alveolar infiltrate within the left greater than right lower lobes have not changed s ignificantly since the previous examination. Some interstitial infiltrates within the posterior seg ment right upper lobe are also stable. Tiny right pleural effusion is unchanged, no left pleural ef fusion has developed. Mediastinum, anne and cardiovascular: The heart is enlarged in size. There is no evidence for nyla cardial effusion. The thoracic aorta is normal in caliber. Mediastinal adenopathy is again noted t he precarinal lymph node 1.4 cm in short axis. Subcarinal adenopathy of 1.8 cm in short axis is aga in seen. The esophagus is normal in caliber. Osseous structures and musculoskeletal findings: There is preservation of bone architecture and min eralization with no evidence for fracture, lytic or blastic lesion. Anterior spondylosis at the lowe r thoracic levels is again seen. Old healed left lower lateral rib fractures are again identified N o chest wall abnormalities are present. The axillary regions are unremarkable. Visualized upper abdomen: Small gallstones are suggested in the dependent gallbladder lumen without evidence of cholecystitis. The adrenal glands are normal bilaterally. RPTAT:HJJR IMPRESSION: 1. Equivocal minimal improvement in aeration of the lung infiltrates bilaterally compared to the CT of 09/23/2016 with stable mediastinal adenopathy. Peribronchial thickening of the lower lobes likel y reflecting bronchitis again identified. Small calcified granulomata of the left lower lobe are pr esent. 2. Cardiomegaly is again seen with a stable small right pleural effusion, the alveolar infiltrates in the left upper lobe potentially a manifestation of cardiac decompensation. 3. Multiple old healed left lower rib fractures are again noted Veto Segovia Physician Date Time Electronically viewed and signed by Veto Segovia Physician on 09/24/2016 23:08 JR/
[2016-09-25] VITALS (13 sets, daily range): BP systolic 91–114; BP diastolic 56–81; PULSE 78–118; RESP 16–20
[2016-09-25] MEDS: ZOLPIDEM 5 MG TAB PO PRN ×2 (00:16→22:38)
[2016-09-25] MEDS: FUROSEMIDE 40 MG INJ IV SCH ×2 (06:28→18:00)
[2016-09-25] MEDS: AMIODARONE 200 MG TAB PO SCH ×3 (06:29→22:37)
[2016-09-25] MEDS: PANTOPRAZOLE (EC) 40 MG TAB PO SCH (06:29)
[2016-09-25] MEDS: ASPIRIN (EC) 325 MG TAB PO SCH (09:02)
[2016-09-25] MEDS: POTASSIUM CHLORIDE (SR) 10 MEQ TAB PO SCH ×2 (09:02→22:38)
[2016-09-25] MEDS: LISINOPRIL 5 MG TAB PO SCH (09:03)
--- NOTE | 2016-09-25 12:09 | PN ---
Date/Time of Note Date/Time of Note DATE: 09/25/16 TIME: 12:07 Assessment/Plan VTE Prophylaxis VTE Prophylaxis Intervention: ambulation Lines/Catheters [facility] Saline Lock Urinary Cath still in place: No Assessment/Plan Chief Complaint/Hosp Course 1. Chest pain. 2. r/o infarction. 3. Atrial flutter with rapid ventricular response. 4. Anemia. 5. Cardiomyopathy. 6. Atherosclerotic heart disease. 7. History of dyslipidemia. 8. History of drug abuse. 9 pul edema Problems: Assessment/Plan 1. Per cardiology Subjective 24 Hr Interval Summary Constitutional: no complaints ENT: no complaints Exam/Review of Systems Vital Signs Vitals Vital Signs Date Time Temp Pulse Resp B/P Pulse Ox O2 Delivery O2 Flow Rate FiO2 09/25/16 11:44 98.2 44 20 91/58 99 09/25/16 07:45 Nasal Cannula 2.0 Intake and Output 09/24/16 09/24/16 09/25/16 15:00 23:00 07:00 Intake Total 800 ml Output Total 1900 ml 800 ml Balance -1100 ml -800 ml Exam Constitutional: alert, oriented Psych: no complaints Head: normocephalic Eyes: nl conjunctiva ENMT: nl external ears & nose Respiratory: diminished breath sounds Cardiovascular: nl pulses Gastrointestinal: soft Results Result Diagram: 09/24/16 0642 09/24/16 0642 Results 24 hrs Laboratory Tests Test 09/24/16 19:30 Digoxin Level 0.7 L Medications Medications Current Medications Aspirin (Ecotrin) 325 mg DAILY PO Last administered on 09/25/16 09:02; Admin Dose 325 MG; Start 09/24/16 at 09:00 Digoxin (Digoxin) 0.125 mg DAILY@13 PO Last administered on 09/24/16 12:33; Admin Dose 0.125 MG; Start 09/24/16 at 13:00 Lisinopril (Zestril) 2.5 mg DAILY PO Last administered on 09/25/16 09:03; Admin Dose 2.5 MG; Start 09/24/16 at 09:00 Mirtazapine (Remeron) 30 mg QHS PO Last administered on 09/24/16 00:39; Admin Dose 30 MG; Start 09/23/16 at 21:00 Nitroglycerin (Nitroglycerin (Sl Tab) 0.4 Mg) 1 tab Q5M PRN SL CHEST PAIN; Start 09/23/16 at 19:00 Potassium Chloride (Klor-Con 10) 30 meq BID PO Last administered on 09/25/16 09:02; Admin Dose 30 MEQ; Start 09/23/16 at 21:00 Ondansetron HCl (Zofran Inj) 4 mg Q6H PRN IV NAUSEA AND/OR VOMITING; Start at 23:30 Acetaminophen (Tylenol Tab) 650 mg Q6H PRN PO PAIN LEVEL 1-3 OR FEVER; Start at 23:30 Acetaminophen (Tylenol Supp) 650 mg Q6H PRN [place] PAIN LEVEL 1-3 OR FEVER; Start 09/23/16 at 23:30 Acetaminophen/ Hydrocodone Bitart ([place] (5/325)) 1 tab Q6H PRN PO MODERATE PAIN LEVEL 4-6; Start 09/23/16 at 23:30 Docusate Sodium (Colace) 100 mg Q12H PRN PO CONSTIPATION; Start 09/23/16 at 23: 30 Magnesium Hydroxide (Milk Of Mag) 30 ml DAILY PRN PO CONSTIPATION; Start at 23:30 Bisacodyl (Dulcolax) 5 mg DAILY PRN PO CONSTIPATION; Start 09/23/16 at 23:30 Hydrocodone Bit/ Homatropine Methylb (Hycodan Liquid) 5 ml BID PRN PO cough Last administered on 09/24/16 22:04; Admin Dose 5 ML; Start 09/24/16 at 00:00 Pantoprazole (Protonix Tab) 40 mg DAILY@06 PO Last administered on 09/25/16 06 :29; Admin Dose 40 MG; Start 09/25/16 at 06:00 Amiodarone HCl (Cordarone) 200 mg Q8 PO Last administered on 09/25/16 06:29; Admin Dose 200 MG; Start 09/24/16 at 22:00 Carvedilol (Coreg) 6.25 mg BID PO Last administered on 09/25/16 09:03; Admin Dose 6.25 MG; Start 09/24/16 at 21:00 Zolpidem Tartrate (Ambien) 5 mg HS PRN PO INSOMNIA Last administered on 00:16; Admin Dose 5 MG; Start 09/25/16 at 00:00 TERRIE CEJA Sep 25, 2016 12:09
[2016-09-25] MEDS: DIGOXIN 0.125 MG TAB PO SCH (13:30)
--- NOTE | 2016-09-25 17:29 | CONS ---
Date/Time of Note Date/Time of Note DATE: 09/25/16 TIME: 17:25 Assessment/Plan Assessment/Plan Chief Complaint/Hosp Course IMPRESSION: 1. Congestive heart failure exacerbation, systolic, acute on chronic. 2. History of cardiomyopathy with severely depressed left ventricular ejection fraction of approximately 25% by echo, less than 20% by stress, no ischemia, February 2016. 3. Atrial flutter-mainly rate controlled. IN VS some rates documented to 40 but by tele monitor no slower than 80 4. Report hemoptysis and has coagulopathy secondary to apixaban taken for prevention of thromboembolic complications and atrial flutter. 5. History of substance abuse. 6. Anemia. Recc: -Tele -serial ecg's -Continue current digoxin and check digoxin level -Continue current ACEI an increase BB as tolerated -Contiue amiodarone in attempt to convert to SR and will consider CAMERON/DCCV as necessary to improve hemodynamics -Continue asa -Continue lasix -if no recurrent hemoptysis will resume apixaban and per report/discussion with nurse no recurrence Problems: Consultation Date/Type/Reason Admit Date/Time Sep 23, 2016 at 14:48 Initial Consult Date 09/23/16 Type of Consultation: Cardiology Reason for Consultation Cardiomyopathy/AFL Referring Provider: ANDREAS FRANCISCO MD Exam/Review of Systems Vital Signs Vitals Vital Signs Date Time Temp Pulse Resp B/P Pulse Ox O2 Delivery O2 Flow Rate FiO2 09/25/16 16:18 85 09/25/16 15:29 98.5 19 99/63 97 09/25/16 07:45 Nasal Cannula 2.0 Intake and Output 09/24/16 09/24/16 09/25/16 15:00 23:00 07:00 Intake Total 800 ml Output Total 1900 ml 800 ml Balance -1100 ml -800 ml Exam Review of Systems: CONSTITUTIONAL: No fevers, chills. PULMONARY: No sob CARDIOVASCULAR: No chest pain/palpitations GASTROINTESTINAL: No nausea/vomiting. GENITOURINARY: No hematuria/dysuria. MUSCULOSKELETAL: No myagias/arthalgias. PSYCHIATRIC: The patient denies depression. NEUROLOGIC: Generalized weakness Constitutional: alert Psych: no complaints Head: normocephalic ENMT: mucosa pink and moist Neck: jvd (9cm water), supple Respiratory: diminished breath sounds (at bases/B) Cardiovascular: regular rate and rhythm Gastrointestinal: non-tender, soft Musculoskeletal: muscle tone (normal) Extremities: edema (none) Neurological: other (No focal deficits) Results Result Diagram: 09/24/1664109/24/16 0642 Results 24 hrs Laboratory Tests Test 09/24/16 19:30 Digoxin Level 0.7 L Medications Medications Current Medications Aspirin (Ecotrin) 325 mg DAILY PO Last administered on 09/25/16 09:02; Admin Dose 325 MG; Start 09/24/16 at 09:00 Digoxin (Digoxin) 0.125 mg DAILY@13 PO Last administered on 09/25/16 13:30; Admin Dose 0.125 MG; Start 09/24/16 at 13:00 Lisinopril (Zestril) 2.5 mg DAILY PO Last administered on 09/25/16 09:03; Admin Dose 2.5 MG; Start 09/24/16 at 09:00 Mirtazapine (Remeron) 30 mg QHS PO Last administered on 09/24/16 00:39; Admin Dose 30 MG; Start 09/23/16 at 21:00 Nitroglycerin (Nitroglycerin (Sl Tab) 0.4 Mg) 1 tab Q5M PRN SL CHEST PAIN; Start 09/23/16 at 19:00 Potassium Chloride (Klor-Con 10) 30 meq BID PO Last administered on 09/25/16 09:02; Admin Dose 30 MEQ; Start 09/23/16 at 21:00 Ondansetron HCl (Zofran Inj) 4 mg Q6H PRN IV NAUSEA AND/OR VOMITING; Start at 23:30 Acetaminophen (Tylenol Tab) 650 mg Q6H PRN PO PAIN LEVEL 1-3 OR FEVER; Start at 23:30 Acetaminophen (Tylenol Supp) [address] PAIN LEVEL 1-3 OR FEVER; Start 09/23/16 at 23:30 Acetaminophen/ Hydrocodone Bitart ([place] (5/325)) 1 tab Q6H PRN PO MODERATE PAIN LEVEL 4-6; Start 09/23/16 at 23:30 Docusate Sodium (Colace) 100 mg Q12H PRN PO CONSTIPATION; Start 09/23/16 at 23: 30 Magnesium Hydroxide (Milk Of Mag) 30 ml DAILY PRN PO CONSTIPATION; Start at 23:30 Bisacodyl (Dulcolax) 5 mg DAILY PRN PO CONSTIPATION; Start 09/23/16 at 23:30 Hydrocodone Bit/ Homatropine Methylb (Hycodan Liquid) 5 ml BID PRN PO cough Last administered on 09/24/16 22:04; Admin Dose 5 ML; Start 09/24/16 at 00:00 Pantoprazole (Protonix Tab) 40 mg DAILY@06 PO Last administered on 09/25/16 06 :29; Admin Dose 40 MG; Start 09/25/16 at 06:00 Amiodarone HCl (Cordarone) 200 mg Q8 PO Last administered on 09/25/16 14:19; Admin Dose 200 MG; Start 09/24/16 at 22:00 Carvedilol (Coreg) 6.25 mg BID PO Last administered on 09/25/16 09:03; Admin Dose 6.25 MG; Start 09/24/16 at 21:00 Zolpidem Tartrate (Ambien) 5 mg HS PRN PO INSOMNIA Last administered on 00:16; Admin Dose 5 MG; Start 09/25/16 at 00:00 DEXTER ZAMORANO Sep 25, 2016 17:29
[2016-09-25] MEDS: ALBUTEROL 18 GM INHALER INH SCH (21:00)
[2016-09-25] MEDS: APIXABAN 5 MG TABLET PO SCH (22:38)
[2016-09-25] MEDS: MIRTAZAPINE 15 MG TAB PO SCH (22:38)
[2016-09-26] VITALS (13 sets, daily range): BP systolic 81–170; BP diastolic 50–83; PULSE 85–115; RESP 18–20
[2016-09-26] MEDS: ALBUTEROL 18 GM INHALER INH SCH ×7 (01:00→21:45)
[2016-09-26] MEDS: HYDROCODONE/HOMATROPINE 5ML CUP PO PRN (01:19)
[2016-09-26] MEDS: FUROSEMIDE 40 MG INJ IV SCH ×2 (06:00→17:49)
[2016-09-26] MEDS: PANTOPRAZOLE (EC) 40 MG TAB PO SCH (06:07)
[2016-09-26] MEDS: AMIODARONE 200 MG TAB PO SCH ×3 (06:08→21:44)
[2016-09-26 07:35] LABS: ADD SCAN DIFF NO
[2016-09-26 07:40] LABS: BASOPHILS % 0.2 % (0.0-2.0); EOSINOPHILS # 0.2 10^3/ul (0.0-0.5); EOSINOPHILS % 2.1 % (0.0-7.0); HEMATOCRIT 37.6 % (42.0-52.0); HEMOGLOBIN 11.6 g/dl (14.0-18.0); LYMPHOCYTES # 1.3 10^3/ul (0.8-2.9); LYMPHOCYTES % 12.5 % (15.0-51.0); MEAN CORPUSCULAR HEMOGLOBIN 27.2 pg (29.0-33.0); MEAN CORPUSCULAR HGB CONC 30.9 g/dl (32.0-37.0); MEAN CORPUSCULAR VOLUME 88.3 fl (82.0-101.0); MEAN PLATELET VOLUME 10.1 fl (7.4-10.4); MONOCYTE # 0.9 10^3/ul (0.3-0.9); MONOCYTES % 8.4 % (0.0-11.0); NEUTROPHIL # 8.2 10^3/ul (1.6-7.5); NEUTROPHILS % 76.2 % (39.0-77.0); PLATELET COUNT 378 10^3/UL (140-415); RED BLOOD COUNT 4.26 10^6/ul (4.70-6.10); RED CELL DISTRIBUTION WIDTH 20.4 % (11.5-14.5); WHITE BLOOD COUNT 10.7 10^3/ul (4.8-10.8)
[2016-09-26 08:02] LABS: CALCIUM 8.7 mg/dl (8.4-10.2); CREATININE 1.18 mg/dl (0.61-1.24)
[2016-09-26] MEDS: LISINOPRIL 5 MG TAB PO SCH (09:00)
[2016-09-26] MEDS: APIXABAN 5 MG TABLET PO SCH ×2 (09:27→21:44)
[2016-09-26] MEDS: POTASSIUM CHLORIDE (SR) 10 MEQ TAB PO SCH ×2 (09:27→21:44)
[2016-09-26] MEDS: ASPIRIN (EC) 325 MG TAB PO SCH (09:27)
--- NOTE | 2016-09-26 13:16 | PN ---
Date/Time of Note Date/Time of Note DATE: 09/26/16 TIME: 13:15 Assessment/Plan VTE Prophylaxis VTE Prophylaxis Intervention: ambulation Lines/Catheters IV Catheter Type (from [facility]): Saline Lock Urinary Cath still in place: No Assessment/Plan Chief Complaint/Hosp Course 1. Chest pain. 2. r/o infarction. 3. Atrial flutter with rapid ventricular response. 4. Anemia. 5. Cardiomyopathy. 6. Atherosclerotic heart disease. 7. History of dyslipidemia. 8. History of drug abuse. 9 pul edema Problems: Assessment/Plan 1. continue telemonitoring 2. Antidiarrheal meds Subjective 24 Hr Interval Summary Subjective hx not possible: pt non-verbal Constitutional: no complaints Eyes: no complaints ENT: no complaints Exam/Review of Systems Vital Signs Vitals Vital Signs Date Time Temp Pulse Resp B/P Pulse Ox O2 Delivery O2 Flow Rate FiO2 09/26/16 12:15 115 09/26/16 11:43 98.5 18 81/50 95 09/26/16 08:10 Nasal Cannula 2.0 Intake and Output 09/25/16 09/25/16 09/26/16 15:00 23:00 07:00 Intake Total 700 ml 350 ml Output Total 750 ml Balance 700 ml -400 ml Exam Constitutional: alert, oriented Psych: no complaints ENMT: nl external ears & nose Respiratory: clear to auscultation Cardiovascular: regular rate and rhythm Results Result Diagram: 09/26/16 0650 09/26/16 0650 Results 24 hrs Laboratory Tests Test 09/26/16 06:50 White Blood Count 10.7 Red Blood Count 4.26 L Hemoglobin 11.6 L Hematocrit 37.6 L Mean Corpuscular Volume 88.3 Mean Corpuscular Hemoglobin 27.2 L Mean Corpuscular Hemoglobin Concent 30.9 L Red Cell Distribution Width 20.4 H Platelet Count 378 Mean Platelet Volume 10.1 Neutrophils % 76.2 Lymphocytes % 12.5 L Monocytes % 8.4 Eosinophils % 2.1 Basophils % 0.2 Nucleated Red Blood Cells % 0.0 Neutrophils # 8.2 H Lymphocytes # 1.3 Monocytes # 0.9 Eosinophils # 0.2 Basophils # 0.0 Nucleated Red Blood Cells # 0.0 Sodium Level 137 Potassium Level 4.0 Chloride Level 109 Carbon Dioxide Level 24 Anion Gap 8 Blood Urea Nitrogen 22 H Creatinine 1.18 Glucose Level 75 Calcium Level 8.7 Medications Medications Current Medications Aspirin (Ecotrin) 325 mg DAILY PO Last administered on 09/26/16 09:27; Admin Dose 325 MG; Start 09/24/16 at 09:00 Digoxin (Digoxin) 0.125 mg DAILY@13 PO Last administered on 09/25/16 13:30; Admin Dose 0.125 MG; Start 09/24/16 at 13:00 Lisinopril (Zestril) 2.5 mg DAILY PO Last administered on 09/25/16 09:03; Admin Dose 2.5 MG; Start 09/24/16 at 09:00 Mirtazapine (Remeron) 30 mg QHS PO Last administered on 09/25/16 22:38; Admin Dose 30 MG; Start 09/23/16 at 21:00 Nitroglycerin (Nitroglycerin (Sl Tab) 0.4 Mg) 1 tab Q5M PRN SL CHEST PAIN; Start 09/23/16 at 19:00 Potassium Chloride (Klor-Con 10) 30 meq BID PO Last administered on 09/26/16 09:27; Admin Dose 30 MEQ; Start 09/23/16 at 21:00 Ondansetron HCl (Zofran Inj) 4 mg Q6H PRN IV NAUSEA AND/OR VOMITING; Start at 23:30 Acetaminophen (Tylenol Tab) 650 mg Q6H PRN PO PAIN LEVEL 1-3 OR FEVER; Start at 23:30 Acetaminophen (Tylenol Supp) 650 mg Q6H PRN [place] PAIN LEVEL 1-3 OR FEVER; Start 09/23/16 at 23:30 Acetaminophen/ Hydrocodone Bitart ([place] (5/325)) 1 tab Q6H PRN PO MODERATE PAIN LEVEL 4-6; Start 09/23/16 at 23:30 Docusate Sodium (Colace) 100 mg Q12H PRN PO CONSTIPATION; Start 09/23/16 at 23: 30 Magnesium Hydroxide (Milk Of Mag) 30 ml DAILY PRN PO CONSTIPATION; Start at 23:30 Bisacodyl (Dulcolax) 5 mg DAILY PRN PO CONSTIPATION; Start 09/23/16 at 23:30 Hydrocodone Bit/ Homatropine Methylb (Hycodan Liquid) 5 ml BID PRN PO cough Last administered on 09/26/16 01:19; Admin Dose 5 ML; Start 09/24/16 at 00:00 Pantoprazole (Protonix Tab) 40 mg DAILY@06 PO Last administered on 09/26/16 06 :07; Admin Dose 40 MG; Start 09/25/16 at 06:00 Amiodarone HCl (Cordarone) 200 mg Q8 PO Last administered on 09/26/16 06:08; Admin Dose 200 MG; Start 09/24/16 at 22:00 Carvedilol (Coreg) 6.25 mg BID PO Last administered on 09/25/16 22:39; Admin Dose 6.25 MG; Start 09/24/16 at 21:00 Zolpidem Tartrate (Ambien) 5 mg HS PRN PO INSOMNIA Last administered on 22:38; Admin Dose 5 MG; Start 09/25/16 at 00:00 Apixaban (Eliquis) 2.5 mg BID PO Last administered on 09/26/16 09:27; Admin Dose 2.5 MG; Start 09/25/16 at 21:00 TERRIE CEJA Sep 26, 2016 13:16
[2016-09-26] MEDS ORDERED: LOPERAMIDE 2 MG CAP PO PRN ×2 (13:30→15:30)
[2016-09-26] MEDS: DIGOXIN 0.125 MG TAB PO SCH (13:30)
--- NOTE | 2016-09-26 14:50 | CONS ---
Date/Time of Note Date/Time of Note DATE: 09/26/16 TIME: 14:47 Assessment/Plan Assessment/Plan Additional Assessment/Plan 1. Congestive heart failure exacerbation, systolic, acute on chronic - fairly stable, con't to keep euvolemic. 2. History of cardiomyopathy with severely depressed left ventricular ejection fraction of approximately 25% by echo, less than 20% by stress, no ischemia, February 2016. Outpt ICD eval. 3. Atrial flutter-mainly rate controlled. IN VS some rates documented to 40 but by tele monitor no slower than 80 4. Report hemoptysis and has coagulopathy secondary to apixaban taken for prevention of thromboembolic complications and atrial flutter- still with some blood in sputum, con't med Rx. 5. History of substance abuse - no change - stable. 6. Anemia. Consultation Date/Type/Reason Admit Date/Time Sep 23, 2016 at 14:48 Initial Consult Date Type of Consultation: Cardiology Referring Provider: ANDREAS FRANCISCO MD 24 HR Interval Summary Free Text/Dictation NO acute change - BP stable - in good fluid status - will adjust Rx as needed. ROS: No fever, no chills, no nausea, no vomiting, no diarrhea/constipation No recent weight changes No chest pain, no PND, no orthopnea No dizziness, blurred vision No thirst, no heat or cold intolerance Exam/Review of Systems Vital Signs Vitals Vital Signs Date Time Temp Pulse Resp B/P Pulse Ox O2 Delivery O2 Flow Rate FiO2 09/26/16 12:15 115 09/26/16 11:43 98.5 18 81/50 95 09/26/16 08:10 Nasal Cannula 2.0 Intake and Output 09/25/16 09/25/16 09/26/16 15:00 23:00 07:00 Intake Total 700 ml 350 ml Output Total 750 ml Balance 700 ml -400 ml Exam General: WN/WD/NAD, AOx 3 HEENT: Unicetric/atraumatic/EOMI (follow commands) NECK: JVD elevated, no thyromegaly Lymph: no lymphadenopathy HEART: regular with no S3, II/ systolic murmur at apex, PMI L LUNGS: Coarse sounds ABD: soft, NT, ND, +BS : Intact Neuro: non focal SKIN: chronic changes EXT: better edema Results Result Diagram: 09/26/16 0650 09/26/16 0650 Results 24 hrs Laboratory Tests Test 09/26/16 06:50 White Blood Count 10.7 Red Blood Count 4.26 L Hemoglobin 11.6 L Hematocrit 37.6 L Mean Corpuscular Volume 88.3 Mean Corpuscular Hemoglobin 27.2 L Mean Corpuscular Hemoglobin Concent 30.9 L Red Cell Distribution Width 20.4 H Platelet Count 378 Mean Platelet Volume 10.1 Neutrophils % 76.2 Lymphocytes % 12.5 L Monocytes % 8.4 Eosinophils % 2.1 Basophils % 0.2 Nucleated Red Blood Cells % 0.0 Neutrophils # 8.2 H Lymphocytes # 1.3 Monocytes # 0.9 Eosinophils # 0.2 Basophils # 0.0 Nucleated Red Blood Cells # 0.0 Sodium Level 137 Potassium Level 4.0 Chloride Level 109 Carbon Dioxide Level 24 Anion Gap 8 Blood Urea Nitrogen 22 H Creatinine 1.18 Glucose Level 75 Calcium Level 8.7 Medications Medications Current Medications Aspirin (Ecotrin) 325 mg DAILY PO Last administered on 09/26/16 09:27; Admin Dose 325 MG; Start 09/24/16 at 09:00 Digoxin (Digoxin) 0.125 mg DAILY@13 PO Last administered on 09/26/16 13:30; Admin Dose 0.125 MG; Start 09/24/16 at 13:00 Lisinopril (Zestril) 2.5 mg DAILY PO Last administered on 09/25/16 09:03; Admin Dose 2.5 MG; Start 09/24/16 at 09:00 Mirtazapine (Remeron) 30 mg QHS PO Last administered on 09/25/16 22:38; Admin Dose 30 MG; Start 09/23/16 at 21:00 Nitroglycerin (Nitroglycerin (Sl Tab) 0.4 Mg) 1 tab Q5M PRN SL CHEST PAIN; Start 09/23/16 at 19:00 Potassium Chloride (Klor-Con 10) 30 meq BID PO Last administered on 09/26/16 09:27; Admin Dose 30 MEQ; Start 09/23/16 at 21:00 Ondansetron HCl (Zofran Inj) 4 mg Q6H PRN IV NAUSEA AND/OR VOMITING; Start at 23:30 Acetaminophen (Tylenol Tab) 650 mg Q6H PRN PO PAIN LEVEL 1-3 OR FEVER; Start at 23:30 Acetaminophen (Tylenol Supp) 650 mg Q6H PRN [place] PAIN LEVEL 1-3 OR FEVER; Start 09/23/16 at 23:30 Acetaminophen/ Hydrocodone Bitart ([place] (5/325)) 1 tab Q6H PRN PO MODERATE PAIN LEVEL 4-6; Start 09/23/16 at 23:30 Docusate Sodium (Colace) 100 mg Q12H PRN PO CONSTIPATION; Start 09/23/16 at 23: 30 Magnesium Hydroxide (Milk Of Mag) 30 ml DAILY PRN PO CONSTIPATION; Start at 23:30 Bisacodyl (Dulcolax) 5 mg DAILY PRN PO CONSTIPATION; Start 09/23/16 at 23:30 Hydrocodone Bit/ Homatropine Methylb (Hycodan Liquid) 5 ml BID PRN PO cough Last administered on 09/26/16 01:19; Admin Dose 5 ML; Start 09/24/16 at 00:00 Pantoprazole (Protonix Tab) 40 mg DAILY@06 PO Last administered on 09/26/16 06 :07; Admin Dose 40 MG; Start 09/25/16 at 06:00 Amiodarone HCl (Cordarone) 200 mg Q8 PO Last administered on 09/26/16 14:41; Admin Dose 200 MG; Start 09/24/16 at 22:00 Carvedilol (Coreg) 6.25 mg BID PO Last administered on 09/25/16 22:39; Admin Dose 6.25 MG; Start 09/24/16 at 21:00 Zolpidem Tartrate (Ambien) 5 mg HS PRN PO INSOMNIA Last administered on 22:38; Admin Dose 5 MG; Start 09/25/16 at 00:00 Apixaban (Eliquis) 2.5 mg BID PO Last administered on 09/26/16 09:27; Admin Dose 2.5 MG; Start 09/25/16 at 21:00 Loperamide HCl (Imodium Cap) 2 mg Q6 PRN PO DIARRHEA; Start 09/26/16 at 13:30 ROEL BLACK MD Sep 26, 2016 14:50
[2016-09-26] MEDS: ZOLPIDEM 5 MG TAB PO PRN (21:44)
[2016-09-26] MEDS: MIRTAZAPINE 15 MG TAB PO SCH (21:44)
[2016-09-27] VITALS (12 sets, daily range): BP systolic 92–121; BP diastolic 52–84; PULSE 97–118; RESP 16–20
[2016-09-27] MEDS: ALBUTEROL 18 GM INHALER INH SCH ×6 (01:00→20:49)
[2016-09-27] MEDS: FUROSEMIDE 40 MG INJ IV SCH ×2 (06:28→18:00)
[2016-09-27] MEDS: PANTOPRAZOLE (EC) 40 MG TAB PO SCH (06:28)
[2016-09-27] MEDS: AMIODARONE 200 MG TAB PO SCH ×3 (06:29→22:47)
[2016-09-27 07:47] LABS: POTASSIUM 3.9 mmol/L (3.5-5.1)
[2016-09-27 07:48] LABS: ADD SCAN DIFF NO; BASOPHILS % 0.3 % (0.0-2.0); EOSINOPHILS # 0.2 10^3/ul (0.0-0.5); EOSINOPHILS % 2.5 % (0.0-7.0); HEMATOCRIT 40.6 % (42.0-52.0); LYMPHOCYTES # 1.7 10^3/ul (0.8-2.9); MEAN CORPUSCULAR HEMOGLOBIN 27.9 pg (29.0-33.0); MEAN CORPUSCULAR VOLUME 87.1 fl (82.0-101.0); MEAN PLATELET VOLUME 9.8 fl (7.4-10.4); MONOCYTE # 0.8 10^3/ul (0.3-0.9); MONOCYTES % 10.3 % (0.0-11.0); NEUTROPHIL # 5.2 10^3/ul (1.6-7.5); NEUTROPHILS % 65.1 % (39.0-77.0); PLATELET COUNT 409 10^3/UL (140-415); RED BLOOD COUNT 4.66 10^6/ul (4.70-6.10); RED CELL DISTRIBUTION WIDTH 20.1 % (11.5-14.5)
[2016-09-27 07:49] LABS: CREATININE 1.11 mg/dl (0.61-1.24)
[2016-09-27 07:50] LABS: CALCIUM 9.1 mg/dl (8.4-10.2)
[2016-09-27] MEDS: LISINOPRIL 5 MG TAB PO SCH (09:00)
[2016-09-27] MEDS: APIXABAN 5 MG TABLET PO SCH ×2 (09:16→20:49)
[2016-09-27] MEDS: ASPIRIN (EC) 325 MG TAB PO SCH (09:16)
[2016-09-27] MEDS: POTASSIUM CHLORIDE (SR) 10 MEQ TAB PO SCH ×2 (09:18→20:49)
[2016-09-27] MEDS: DIGOXIN 0.125 MG TAB PO SCH (12:55)
--- NOTE | 2016-09-27 16:07 | CONS ---
Date/Time of Note Date/Time of Note DATE: 09/27/16 TIME: 16:06 Assessment/Plan Assessment/Plan Additional Assessment/Plan 1. Congestive heart failure exacerbation, systolic, acute on chronic - fairly stable, con't to keep euvolemic. BETTER now. 2. History of cardiomyopathy with severely depressed left ventricular ejection fraction of approximately 25% by echo, less than 20% by stress, no ischemia, February 2016. Outpt ICD eval. 3. Atrial flutter-mainly rate controlled. IN VS some rates documented to 40 but by tele monitor no slower than 80 - RATE CONTROLLED. 4. Report hemoptysis and has coagulopathy secondary to apixaban taken for prevention of thromboembolic complications and atrial flutter- still with some blood in sputum, con't med Rx. 5. History of substance abuse - no change - stable. 6. Anemia. Consultation Date/Type/Reason Admit Date/Time Sep 23, 2016 at 14:48 Type of Consultation: Cardiology Referring Provider: ANDREAS FRANCISCO MD 24 HR Interval Summary Free Text/Dictation NO acute change - rate modestly controlled - con't to monitor now. Medications reviewed. ROS: No fever, no chills, no nausea, no vomiting, no diarrhea/constipation No recent weight changes No chest pain, no PND, no orthopnea No dizziness, blurred vision No thirst, no heat or cold intolerance Exam/Review of Systems Vital Signs Vitals Vital Signs Date Time Temp Pulse Resp B/P Pulse Ox O2 Delivery O2 Flow Rate FiO2 09/27/16 12:16 97.7 78 18 121/61 100 09/27/16 07:29 Nasal Cannula 2.0 Intake and Output 09/26/16 09/26/16 09/27/16 15:00 23:00 07:00 Intake Total 800 ml 550 ml Output Total 950 ml Balance 800 ml -400 ml Exam General: WN/WD/NAD, AOx 2-3 HEENT: Unicetric/atraumatic/EOMI (follow commands) NECK: JVD elevated, no thyromegaly Lymph: no lymphadenopathy HEART: regular with no S3, II/ systolic murmur at apex, PMI L LUNGS: Coarse sounds ABD: soft, NT, ND, +BS : Intact Neuro: non focal SKIN: chronic changes EXT: trace edema Results Result Diagram: 09/27/16 0700 09/27/16 0711 Results 24 hrs Laboratory Tests Test 09/27/16 07:00 09/27/16 07:11 White Blood Count 8.0 # Red Blood Count 4.66 L Hemoglobin 13.0 L Hematocrit 40.6 L Mean Corpuscular Volume 87.1 Mean Corpuscular Hemoglobin 27.9 L Mean Corpuscular Hemoglobin Concent 32.0 Red Cell Distribution Width 20.1 H Platelet Count 409 Mean Platelet Volume 9.8 Neutrophils % 65.1 Lymphocytes % 21.0 Monocytes % 10.3 Eosinophils % 2.5 Basophils % 0.3 Nucleated Red Blood Cells % 0.0 Neutrophils # 5.2 Lymphocytes # 1.7 Monocytes # 0.8 Eosinophils # 0.2 Basophils # 0.0 Nucleated Red Blood Cells # 0.0 Sodium Level 142 Potassium Level 3.9 Chloride Level 112 H Carbon Dioxide Level 19 L Anion Gap 15 # Blood Urea Nitrogen 22 H Creatinine 1.11 Glucose Level 79 Calcium Level 9.1 Medications Medications Current Medications Aspirin (Ecotrin) 325 mg DAILY PO Last administered on 09/27/16 09:16; Admin Dose 325 MG; Start 09/24/16 at 09:00 Digoxin (Digoxin) 0.125 mg DAILY@13 PO Last administered on 09/27/16 12:55; Admin Dose 0.125 MG; Start 09/24/16 at 13:00 Lisinopril (Zestril) 2.5 mg DAILY PO Last administered on 09/25/16 09:03; Admin Dose 2.5 MG; Start 09/24/16 at 09:00 Mirtazapine (Remeron) 30 mg QHS PO Last administered on 09/26/16 21:44; Admin Dose 30 MG; Start 09/23/16 at 21:00 Nitroglycerin (Nitroglycerin (Sl Tab) 0.4 Mg) 1 tab Q5M PRN SL CHEST PAIN; Start 09/23/16 at 19:00 Potassium Chloride (Klor-Con 10) 30 meq BID PO Last administered on 09/27/16 09:18; Admin Dose 30 MEQ; Start 09/23/16 at 21:00 Ondansetron HCl (Zofran Inj) 4 mg Q6H PRN IV NAUSEA AND/OR VOMITING; Start at 23:30 Acetaminophen (Tylenol Tab) 650 mg Q6H PRN PO PAIN LEVEL 1-3 OR FEVER; Start at 23:30 Acetaminophen (Tylenol Supp) 650 mg Q6H PRN [place] PAIN LEVEL 1-3 OR FEVER; Start 09/23/16 at 23:30 Acetaminophen/ Hydrocodone Bitart ([place] (5/325)) 1 tab Q6H PRN PO MODERATE PAIN LEVEL 4-6; Start 09/23/16 at 23:30 Docusate Sodium (Colace) 100 mg Q12H PRN PO CONSTIPATION; Start 09/23/16 at 23: 30 Magnesium Hydroxide (Milk Of Mag) 30 ml DAILY PRN PO CONSTIPATION; Start at 23:30 Bisacodyl (Dulcolax) 5 mg DAILY PRN PO CONSTIPATION; Start 09/23/16 at 23:30 Hydrocodone Bit/ Homatropine Methylb (Hycodan Liquid) 5 ml BID PRN PO cough Last administered on 09/26/16 01:19; Admin Dose 5 ML; Start 09/24/16 at 00:00 Pantoprazole (Protonix Tab) 40 mg DAILY@06 PO Last administered on 09/27/16 06 :28; Admin Dose 40 MG; Start 09/25/16 at 06:00 Amiodarone HCl (Cordarone) 200 mg Q8 PO Last administered on 09/27/16 14:10; Admin Dose 200 MG; Start 09/24/16 at 22:00 Carvedilol (Coreg) 6.25 mg BID PO Last administered on 09/27/16 09:15; Admin Dose 6.25 MG; Start 09/24/16 at 21:00 Zolpidem Tartrate (Ambien) 5 mg HS PRN PO INSOMNIA Last administered on 21:44; Admin Dose 5 MG; Start 09/25/16 at 00:00 Apixaban (Eliquis) 2.5 mg BID PO Last administered on 09/27/16 09:16; Admin Dose 2.5 MG; Start 09/25/16 at 21:00 Loperamide HCl (Imodium Cap) 2 mg Q6H PRN PO DIARRHEA Last administered on 09/27 09:16; Admin Dose 2 MG; Start 09/26/16 at 15:30 ROEL BLACK MD Sep 27, 2016 16:07
--- NOTE | 2016-09-27 17:36 | PDOCDIS ---
Discharge Instructions CONDITION Patient Condition: Stable ACTIVITY: Activity Restrictions: Slowly Increase Activity FOLLOW UP/APPOINTMENTS Appointments f/u pcp [address] carter 1 wk ANDREAS FRANCISCO MD Sep 27, 2016 17:36
[2016-09-27] MEDS ORDERED: HYDR-3498 PO (17:41)
[2016-09-27] MEDS ORDERED: LOSA25TA5 PO (17:41)
[2016-09-27] MEDS ORDERED: ASPI325T32 PO (17:41)
[2016-09-27] MEDS ORDERED: DOXY100T20 PO (17:41)
[2016-09-27] MEDS ORDERED: CARV3.1260 PO (17:41)
[2016-09-27] MEDS ORDERED: HYDR5SYR PO (17:41)
[2016-09-27] MEDS ORDERED: PANT40TA4 PO (17:41)
[2016-09-27] MEDS ORDERED: AMIO200T2 PO (17:41)
--- NOTE | 2016-09-27 17:45 | PN ---
Date/Time of Note Date/Time of Note DATE: 09/27/16 TIME: 17:44 Assessment/Plan VTE Prophylaxis VTE Prophylaxis Intervention: other Lines/Catheters [facility]from [facility] Saline Lock Urinary Cath still in place: No Assessment/Plan Chief Complaint/Hosp Course IMPRESSION: 1. Chest pain. 2. r/o infarction. 3. Atrial flutter with rapid ventricular response. 4. Anemia. 5. Cardiomyopathy. 6. Atherosclerotic heart disease. 7. History of dyslipidemia. 8. History of drug abuse. 9 pul edema better 10 bronchites+ plan lasix ck ct chest Problems: Subjective 24 Hr Interval Summary Respiratory: cough Gastrointestinal: no complaints Genitourinary: no complaints Exam/Review of Systems Vital Signs Vitals Vital Signs Date Time Temp Pulse Resp B/P Pulse Ox O2 Delivery O2 Flow Rate FiO2 09/27/16 16:29 118 09/27/16 16:06 97.7 18 99/52 96 09/27/16 07:29 Nasal Cannula 2.0 Intake and Output 09/26/16 09/26/16 09/27/16 15:00 23:00 07:00 Intake Total 800 ml 550 ml Output Total 950 ml Balance 800 ml -400 ml Exam Respiratory: clear to auscultation Cardiovascular: regular rate and rhythm Gastrointestinal: soft Results Result Diagram: 09/27/16 0700 09/27/16 0711 Results 24 hrs Laboratory Tests Test 09/27/16 07:00 09/27/16 07:11 White Blood Count 8.0 # Red Blood Count 4.66 L Hemoglobin 13.0 L Hematocrit 40.6 L Mean Corpuscular Volume 87.1 Mean Corpuscular Hemoglobin 27.9 L Mean Corpuscular Hemoglobin Concent 32.0 Red Cell Distribution Width 20.1 H Platelet Count 409 Mean Platelet Volume 9.8 Neutrophils % 65.1 Lymphocytes % 21.0 Monocytes % 10.3 Eosinophils % 2.5 Basophils % 0.3 Nucleated Red Blood Cells % 0.0 Neutrophils # 5.2 Lymphocytes # 1.7 Monocytes # 0.8 Eosinophils # 0.2 Basophils # 0.0 Nucleated Red Blood Cells # 0.0 Sodium Level 142 Potassium Level 3.9 Chloride Level 112 H Carbon Dioxide Level 19 L Anion Gap 15 # Blood Urea Nitrogen 22 H Creatinine 1.11 Glucose Level 79 Calcium Level 9.1 Medications Medications Current Medications Aspirin (Ecotrin) 325 mg DAILY PO Last administered on 09/27/16 09:16; Admin Dose 325 MG; Start 09/24/16 at 09:00 Digoxin (Digoxin) 0.125 mg DAILY@13 PO Last administered on 09/27/16 12:55; Admin Dose 0.125 MG; Start 09/24/16 at 13:00 Lisinopril (Zestril) 2.5 mg DAILY PO Last administered on 09/25/16 09:03; Admin Dose 2.5 MG; Start 09/24/16 at 09:00 Mirtazapine (Remeron) 30 mg QHS PO Last administered on 09/26/16 21:44; Admin Dose 30 MG; Start 09/23/16 at 21:00 Nitroglycerin (Nitroglycerin (Sl Tab) 0.4 Mg) 1 tab Q5M PRN SL CHEST PAIN; Start 09/23/16 at 19:00 Potassium Chloride (Klor-Con 10) 30 meq BID PO Last administered on 09/27/16 09:18; Admin Dose 30 MEQ; Start 09/23/16 at 21:00 Ondansetron HCl (Zofran Inj) 4 mg Q6H PRN IV NAUSEA AND/OR VOMITING; Start at 23:30 Acetaminophen (Tylenol Tab) 650 mg Q6H PRN PO PAIN LEVEL 1-3 OR FEVER; Start at 23:30 Acetaminophen (Tylenol Supp) 650 mg Q6H PRN [place] PAIN LEVEL 1-3 OR FEVER; Start 09/23/16 at 23:30 Acetaminophen/ Hydrocodone Bitart ([place] (5/325)) 1 tab Q6H PRN PO MODERATE PAIN LEVEL 4-6; Start 09/23/16 at 23:30 Docusate Sodium (Colace) 100 mg Q12H PRN PO CONSTIPATION; Start 09/23/16 at 23: 30 Magnesium Hydroxide (Milk Of Mag) 30 ml DAILY PRN PO CONSTIPATION; Start at 23:30 Bisacodyl (Dulcolax) 5 mg DAILY PRN PO CONSTIPATION; Start 09/23/16 at 23:30 Hydrocodone Bit/ Homatropine Methylb (Hycodan Liquid) 5 ml BID PRN PO cough Last administered on 09/26/16 01:19; Admin Dose 5 ML; Start 09/24/16 at 00:00 Pantoprazole (Protonix Tab) 40 mg DAILY@06 PO Last administered on 09/27/16 06 :28; Admin Dose 40 MG; Start 09/25/16 at 06:00 Amiodarone HCl (Cordarone) 200 mg Q8 PO Last administered on 09/27/16 14:10; Admin Dose 200 MG; Start 09/24/16 at 22:00 Carvedilol (Coreg) 6.25 mg BID PO Last administered on 09/27/16 09:15; Admin Dose 6.25 MG; Start 09/24/16 at 21:00 Zolpidem Tartrate (Ambien) 5 mg HS PRN PO INSOMNIA Last administered on 21:44; Admin Dose 5 MG; Start 09/25/16 at 00:00 Apixaban (Eliquis) 2.5 mg BID PO Last administered on 09/27/16 09:16; Admin Dose 2.5 MG; Start 09/25/16 at 21:00 Loperamide HCl (Imodium Cap) 2 mg Q6H PRN PO DIARRHEA Last administered on 09/27 09:16; Admin Dose 2 MG; Start 09/26/16 at 15:30 ANDREAS FRANCISCO MD Sep 27, 2016 17:45
[2016-09-27] MEDS: MIRTAZAPINE 15 MG TAB PO SCH (20:49)
[2016-09-27] MEDS: DOXYCYCLINE 100 MG TAB PO SCH (20:49)
[2016-09-27] MEDS: ZOLPIDEM 5 MG TAB PO PRN (22:45)
[2016-09-27] MEDS: HYDROCODONE/HOMATROPINE 5ML CUP PO PRN (22:45)
[2016-09-28] VITALS (9 sets, daily range): BP systolic 91–124; BP diastolic 42–67; PULSE 74–102; RESP 18
[2016-09-28] MEDS: ALBUTEROL 18 GM INHALER INH SCH ×4 (01:54→12:58)
[2016-09-28] MEDS: PANTOPRAZOLE (EC) 40 MG TAB PO SCH (05:33)
[2016-09-28] MEDS: FUROSEMIDE 40 MG INJ IV SCH (05:34)
[2016-09-28] MEDS: AMIODARONE 200 MG TAB PO SCH ×2 (05:34→15:07)
[2016-09-28] MEDS: LISINOPRIL 5 MG TAB PO SCH (09:00)
[2016-09-28] MEDS: APIXABAN 5 MG TABLET PO SCH (09:12)
[2016-09-28] MEDS: DOXYCYCLINE 100 MG TAB PO SCH (09:13)
[2016-09-28] MEDS: POTASSIUM CHLORIDE (SR) 10 MEQ TAB PO SCH (09:13)
[2016-09-28] MEDS: ASPIRIN (EC) 325 MG TAB PO SCH (09:13)
[2016-09-28] MEDS: DIGOXIN 0.125 MG TAB PO SCH (12:58)
--- NOTE | 2016-09-28 16:33 | QN ---
Documentation Comment [id number] ANDREAS FRANCISCO MD Sep 28, 2016 16:33
--- NOTE | 2016-09-29 03:57 | DS ---
DATE OF ADMISSION: 09/23/2016 DATE OF DISCHARGE: 09/28/2016 HISTORY OF PRESENT ILLNESS: The patient with history of cardiomyopathy with decreased ejection frac tion was admitted with shortness of breath and palpitation, noted to have congestive heart failure e xacerbation, systolic, acute on chronic, history of cardiomyopathy, ejection fraction 25%, atrial fl utter with intermittent diaphragmatic response. The patient has reported hemoptysis due to coagulop athy which is getting better. The patient's CT of the chest was done and shows bronchitis. Continu ed on antibiotic. Also, the patient's lung congestion treated with diuretic. The patient has a his tory of drug abuse but is sober now. Hematocrit 40.6. Potassium 3.9. The patient was cleared to b e discharged back to [facility] or assisted living. AT THE TIME OF DISCHARGE, DIAGNOSES: 1. Chest pain. Myocardial infarction ruled out. 2. Atrial flutter with rapid ventricular response. 3. Anemia. 4. Cardiomyopathy. 5. Atherosclerotic heart disease. 6. History of dyslipidemia. 7. History of drug abuse. 8. Pulmonary edema. 9. Systolic bronchitis. DISCHARGE MEDICATIONS: Continue on 1. Albuterol. 2. Amiodarone. 3. Apixaban. 4. Aspirin. 5. Bisacodyl. 6. Coreg. 7. Digoxin. 8. Docusate sodium. 9. Doxycycline. 10. Lasix. 11. Hydrocodone. 12. Lisinopril. 13. Loperamide. 14. Magnesium. 15. Mirtazapine. 16. Nitroglycerin. 17. Zofran. 18. Protonix. 19. Potassium. 20. ____. DISPOSITION: The patient is stable at the time of discharge. DISCHARGE INSTRUCTIONS: The patient is to follow up with PCP, Dr. Rodríguez, as an outpatient. Dictated By: ANDREAS FRANCISCO MD BS/EDILIA Conf#: [id number] DID#: [id number]
== END 2016-09-28 16:29 | DRG 292 ==
LOC: E/R 11:37 → MS4 14:48
PROVIDERS: ADMIT Internal Medicine Nephrology; ATTEND Internal Medicine Nephrology
DX: I50.23 Acute on chronic systolic (congestive) heart failure (principal); D68.32 Hemorrhagic disorder due to extrinsic circulating anticoagulants; R04.2 Hemoptysis; I42.9 Cardiomyopathy, unspecified; I48.92 Unspecified atrial flutter; T45.515A Adverse effect of anticoagulants, initial encounter; D64.9 Anemia, unspecified; I25.10 Atherosclerotic heart disease of native coronary artery without angina pectoris; Z87.898 Personal history of other specified conditions; E78.5 Hyperlipidemia, unspecified; J40 Bronchitis, not specified as acute or chronic
CPT/HCPCS: 36415; 71010; 71250; 71275; 80048; 80053; 80162; 82550; 82553; 83880; 84484; 85025; 85610; 85730; 86674; 87075; 87081; 93005; 96374; 96376; J1940; C9113; Q9967

== ENCOUNTER 2016-10-12 12:34 | Inpatient (IN) | payer OTHER ==
[~2016-10-12] VITALS: Ht 175.3 cm; Wt 86.5 kg
[~2016-10-12 12:34] MED LIST changes: +APIX5TAB PO; +ASPI325T32 PO; -ASPI81TA3 PO; +CA CHLORIDE 10% 10 ML SYRINGE ONE; +DOPamine-D5W 1.6 MG/ML 250 ML ONE; +DOXY100T20 PO; +EPINEPHrine 0.1 MG/ML SYG ONE; -FLUO20CA22 PO; -HOMATROPINE PO; +HYDR-3498 PO; +HYDR5SYR PO; -HYDROCODONE PO; +LOSA25TA5 PO; +NA BICARBONATE 8.4% 50 ML SYG ONE; +NOVO3I SC; +PANT40TA4 PO
--- NOTE | 2016-10-12 12:41 | ERA ---
ER Documentation Chief Complaint Date/Time DATE: 10/12/16 TIME: 12:40 Chief Complaint Cardiac arrest HPI The patient is a 51-year-old male, presenting to the ER because of cardiac arrest. He was found obtunded at the drug rehab. When EMS arrived, he was in PEA. He was in immediately treated with epinephrine 1 mg IV times two, he then went to ventricular tachycardia and was defibrillated back to PEA. He was also treated empirically with Narcan 2 mg IV without any response. Upon arrival to the ER, he was in PEA. He was immediately intubated without any difficulty. He was treated with epinephrine 1 mg IV 2 with good response, Accu-Chek was 133. He later went to PEA and treated with epinephrine 1 mg IV 1 with good response The history is obtained from jockey's agent and medical record Past medical history: CAD, anemia, history of CHF, cardiomyopathy with low EF of 20-25%, hypertension, history of proximal age of elevation, diabetes mellitus , history of CVA, depression, anxiety, schizophrenia ROS All systems reviewed and are negative except as per history of present illness. Medications Home Meds Active Scripts Doxycycline Hyclate* (Doxycycline Hyclate*) 100 Mg Tablet., 100 MG PO BID, # 10 TAB Prov:ANDREAS FRANCISCO MD 09/27/16 Pantoprazole* (Pantoprazole*) 40 Mg Tablet., 40 MG PO DAILY@06 for 14 Days Prov:ANDREAS FRANCISCO MD 09/27/16 Hydrocodone Bit/Homatrop Me-Br (Hydrocodone-Homatropine Syrup) 5 Ml Syrup, 5 ML PO BID Y for cough for 14 Days Prov:ANDREAS FRANCISCO MD 09/27/16 Hydrocodone Bit-Acetaminophen (Hydrocodone Bit-APAP) 5-325MG Tablet, 1 TAB PO Q6H Y for MODERATE PAIN LEVEL 4-6 for 7 Days, TAB Prov:ANDREAS FRANCISCO MD 09/27/16 Aspirin (Aspir-Pratima) 325 Mg Tablet., 325 MG PO DAILY for 30 Days Prov:ANDREAS FRANCISCO MD 09/27/16 Amiodarone Hcl* (Amiodarone Hcl*) 200 Mg Tablet, 200 MG PO Q8 for 30 Days, TAB Prov:ANDREAS FRANCISCO MD 09/27/16 Losartan Potassium* (Losartan Potassium*) 25 Mg Tablet, 25 MG PO DAILY for 28 Days, TAB Prov:ANDREAS FRANCISCO MD 09/27/16 Carvedilol* (Carvedilol*) 3.125 Mg Tablet, 3.125 MG PO BID for 14 Days, #30 TAB Prov:ANDREAS FRANCISCO MD 09/27/16 Digoxin* (Digox*) 125 Mcg Tablet, 0.125 MG PO DAILY for 28 Days, TAB Prov:ANDREAS FRANCISCO MD 09/17/16 Potassium Chloride (Klor-Con M10) 10 Meq Tab.prt.sr, 30 MEQ PO BID for 28 Days Prov:ANDREAS FRANCISCO MD 09/17/16 Mirtazapine* (Mirtazapine*) 15 Mg Tablet, 30 MG PO QHS for 14 Days, TAB Prov:ANDREAS FRANCISCO MD 09/17/16 Lisinopril* (Lisinopril*) 5 Mg Tablet, 2.5 MG PO DAILY for 28 Days, TAB Prov:ANDREAS FRANCISCO MD 09/17/16 Nitroglycerin* (Nitrostat*) 0.4 Mg Tab.subl, 1 TAB SL Q5M Y for CHEST PAIN for 28 Days Prov:ANDREAS FRANCISCO MD 08/09/16 Furosemide* (Furosemide*) 20 Mg Tablet, 20 MG PO BID, #30 TAB Prov:KACY JESSICA NP 04/10/16 Insulin Glargine* (Lantus*) 100 Unit/Ml Soln, 12 UNIT SC QHS, #1 VIAL Prov:PHILIPP YOUNG INTERACTIVE MEDIA DIRECTOR 02/11/16 Reported Medications Fluoxetine Hcl* (Prozac*) 20 Mg Capsule, 20 MG PO DAILY, CAP 10/12/16 Albuterol Sulfate* (Ventolin HFA*) 18 Gm Hfa.aer.ad, 2 PUFF INHALATION Q4H, #1 INHALER 02/06/16 Discontinued Reported Medications Apixaban* (Eliquis*) 5 Mg Tablet, 5 MG PO BID, TAB 09/23/16 Insulin Aspart* (Novolog Insulin Pen*) 100 Unit/Ml Soln, 5-7 UNIT SC AC MEALS, EA 09/23/16 Allergies Allergies: Coded Allergies: erythromycin base (Verified Allergy, Unknown, hives, SOB, 09/23/16) PMhx/Soc History of Surgery: Yes (knee surgery, nose surgery; chest tube placement) Anesthesia Reaction: No Hx Neurological Disorder: Yes (stroke) Hx Respiratory Disorders: Yes (asthma) Hx Cardiac Disorders: Yes (atrial flutter, cardiac arrest, heart failure) Hx Psychiatric Problems: Yes (sever bipolar, schizophrenia, severe depression) Hx Miscellaneous Medical Probl: No Hx Alcohol Use: Yes (3 weeks before admission) Hx Substance Use: Yes Hx Tobacco Use: Yes (no cigarrette for year) Physical Exam Vitals Vital Signs Date Time Temp Pulse Resp B/P Pulse Ox O2 Delivery O2 Flow Rate FiO2 10/12/16 17:30 74 26 149/100 100 Mechanical Ventilator 10/12/16 17:22 74 26 100 40 10/12/16 17:15 91.0 73 26 147/97 100 Mechanical Ventilator 10/12/16 17:00 74 26 142/97 96 Mechanical Ventilator 10/12/16 16:45 74 26 140/90 96 Mechanical Ventilator 10/12/16 16:30 72 26 139/79 96 Mechanical Ventilator 10/12/16 16:15 74 26 135/86 96 Mechanical Ventilator 10/12/16 16:00 76 26 133/85 96 Mechanical Ventilator 10/12/16 15:45 80 26 131/86 96 Mechanical Ventilator 10/12/16 15:30 82 26 131/92 96 Mechanical Ventilator 10/12/16 15:20 94.0 77 26 131/86 95 Mechanical Ventilator 10/12/16 15:15 84 26 136/92 96 Mechanical Ventilator 10/12/16 15:00 85 26 136/94 95 Mechanical Ventilator 10/12/16 14:57 87 30 100 60 10/12/16 14:45 86 26 140/85 95 Mechanical Ventilator 10/12/16 14:30 88 26 121/94 95 Mechanical Ventilator 10/12/16 14:15 87 26 130/82 95 Mechanical Ventilator 10/12/16 14:00 98 26 132/80 94 Mechanical Ventilator 10/12/16 13:45 91 26 107/89 94 Mechanical Ventilator 10/12/16 13:41 94 26 94 100 10/12/16 13:30 103 20 113/65 96 Mechanical Ventilator 10/12/16 13:25 104 20 111/70 95 Mechanical Ventilator 10/12/16 13:20 101 20 103/67 95 Mechanical Ventilator 10/12/16 13:15 95 20 100/66 93 Mechanical Ventilator 10/12/16 13:10 90 20 99/68 92 Mechanical Ventilator 10/12/16 13:05 90 20 102/67 89 Mechanical Ventilator 10/12/16 13:01 88 20 131/83 88 Mechanical Ventilator 10/12/16 12:56 35 20 89/58 94 Mechanical Ventilator 10/12/16 12:50 43 20 59/23 94 Mechanical Ventilator 10/12/16 12:45 44 20 47/33 93 Mechanical Ventilator 10/12/16 12:36 58 20 100 10/12/16 12:36 124 20 83/56 92 Mechanical Ventilator 10/12/16 12:34 Bag Valve Mask Physical Exam Const: acute distress. Head: Atraumatic. Eyes: Normal Conjunctiva. Pupils are fixed and dilated ENT: Normal External Ears, Nose and Mouth. Neck: Full range of motion. No meningismus. Resp: Clear to auscultation bilaterally. Cardio: Regular rate and rhythm, no murmurs. Abd: Soft, non distended, normal bowel sounds, non tender. Skin: No petechiae or rashes. Back: No midline or flank tenderness. Ext: No cyanosis, or edema. Neur: Unable to perform due to his condition Psych: Unable to perform due to his condition Result Diagram: 10/12/16 1255 10/12/16 1255 Results 24 hrs Laboratory Tests Test 10/12/16 12:38 10/12/16 12:55 10/12/16 12:59 10/12/16 13:34 Bedside Glucose 134mg/dL White Blood Count 7.910^3/ul Red Blood Count 3.8310^6/ul Hemoglobin 10.8g/dl Hematocrit 36.7% Mean Corpuscular Volume 95.8fl Mean Corpuscular Hemoglobin 28.2pg Mean Corpuscular Hemoglobin Concent 29.4g/dl Red Cell Distribution Width 19.3% Platelet Count 33542^3/UL Mean Platelet Volume 10.8fl Neutrophils % 65.1% Lymphocytes % 24.5% Monocytes % 6.7% Eosinophils % 1.4% Basophils % 0.4% Nucleated Red Blood Cells % 0.3/100WBC Neutrophils # 5.110^3/ul Lymphocytes # 1.910^3/ul Monocytes # 0.510^3/ul Eosinophils # 0.110^3/ul Basophils # 0.010^3/ul Nucleated Red Blood Cells # 0.010^3/ul Prothrombin Time 17.6Sec Prothrombin Time Ratio 1.4 INR International Normalized Ratio 1.44 Activated Partial Thromboplast Time 31.2Sec Sodium Level 145mmol/L Potassium Level 3.6mmol/L Chloride Level 114mmol/L Carbon Dioxide Level 12mmol/L Anion Gap 23 Blood Urea Nitrogen 21mg/dl Creatinine 1.18mg/dl Glucose Level 195mg/dl Lactic Acid Level 9.3mmol/L Calcium Level 8.6mg/dl Magnesium Level 1.9mg/dl Total Bilirubin 0.4mg/dl Direct Bilirubin 0.00mg/dl Indirect Bilirubin 0.4mg/dl Aspartate Amino Transf (AST/SGOT) 29IU/L Alanine Aminotransferase (ALT/SGPT) 22IU/L Alkaline Phosphatase 85IU/L Troponin I 0.016ng/ml Total Protein 6.9g/dl Albumin 3.2g/dl Globulin 3.70g/dl Albumin/Globulin Ratio 0.86 Lipase 112U/L Digoxin Level 0.5ng/ml Blood Gas Specimen Source Blood arterial Blood arterial Arterial Blood Date Drawn 10/12/2016 12:55:47 PM 10/12/2016 2:30:48 PM Arterial Blood pH (Temp corrected) 6.911 7.445 Arterial Blood pCO2 (Temp correct) 52.1mmhg 25.9mmhg Arterial Blood pO2 (Temp corrected) 67.4mmHG 459.2mmHG Arterial Blood HCO3 10.2mmol/L 17.4mmol/L Arterial Blood Base Excess -21.9mmol/L -5.2mmol/L Arterial Blood Oxygen Saturation 73.5mmHG 99.0mmHG Oleksandr Test ACCEPTAB ACCEPTAB Arterial Blood Gas Puncture Site Left Radial Right Radial Arterial Blood Carboxyhemoglobin 0.7% 0.1% Arterial Blood Methemoglobin 0.4% 0% Blood Gas A-a O2 Differential 593.5mmHg 227.9mmHg Oxyhemoglobin Percent 72.7% 98.9% Total Hemoglobin 10.7g/dl 12.1g/dl Blood Gas Temperature 37.0C 37.0C Blood Gas Respiration Rate 20.0 26.0 Blood Gas Actual Respiration Rate 20 34 Blood Gas Modality VENT - AC VENT - AC FiO2 100.0% 100.0% Blood Gas Tidal Volume 600.0mL 600.0mL Blood Gas Low PEEP Setting 0cmH2O 0cmH2O Blood Gas Critical Value Read Back DR FARIHA Mendoza Blood Gas Notified Whom KARIME SCHAFFER Blood Gas Notified Time 10/12/2016 1:07:10 PM 10/12/2016 2:37:31 PM Test 10/12/16 14:55 10/12/16 15:24 10/12/16 16:19 10/12/16 16:45 Lactic Acid Level 5.4mmol/L 4.8mmol/L Bedside Glucose 220mg/dL 224mg/dL Test 10/12/16 17:35 10/12/16 17:42 10/12/16 18:15 Bedside Glucose 261mg/dL 296mg/dL Urine Color LT. YELLOW Urine Clarity SLIGHTLY CLOUDY Urine pH 7.0 Urine Specific [place] 1.020 Urine Ketones NEGATIVE Urine Nitrite NEGATIVE Urine Bilirubin NEGATIVE Urine Urobilinogen 0.2 E.U./dL Urine Leukocyte Esterase NEGATIVE Urine Microscopic RBC 10-25/HPF Urine Microscopic WBC 5-10/HPF Urine Amorphous Urates MODERATE Urine Bacteria MODERATE Urine Hemoglobin 1+ Urine Glucose 0.25%% Urine Total Protein 4+ Current Medications Medications (Trade) Dose Ordered Sig/Bradley Route PRN Reason Start Time Stop Time Status Last Admin Dose Admin Sodium Bicarbonate (Na Bicarb 8.4% Syg) 50 ml ONCE STAT IV 10/12/16 13:15 10/12/16 13:17 DC 10/12/16 13:21 Sodium Bicarbonate 150 ml 150 ml ONCE ONCE IV 10/12/16 14:00 10/12/16 14:01 DC 10/12/16 13:55 Sodium Chloride 1,000 ml @ 100 mls/hr Q10H IV 10/12/16 13:47 10/12/16 15:44 Propofol (Diprivan) 100 ml @ 2.7 mls/hr PER PROTOCOL IV 10/12/16 14:00 10/12/16 14:22 Acetaminophen (Tylenol Supp) 650 mg Q4H PRN UT TEMP > 37C 10/12/16 14:00 Acetaminophen (Tylenol Liquid) 650 mg Q4H PRN PO TEMP > 37C 10/12/16 14:00 Acetaminophen (Tylenol Supp) 500 mg Q6H UT 10/13/16 14:00 Acetaminophen (Tylenol Liquid) 500 mg Q6H PO 10/13/16 14:00 Meperidine HCl (Demerol) 12.5 mg Q4H PRN IV POST OPERATIVE SHIVERING 10/12/16 14:00 Meperidine HCl (Demerol) 25 mg Q4H PRN IV POST OPERATIVE SHIVERING 10/12/16 14:00 Eye Lubricant (Akwa Oint) 1 applic Q6 BOTH EYES 10/12/16 18:00 Eye Lubricant (Artificial Tears Oph) 2 drop Q6 BOTH EYES 10/12/16 18:00 Miscellaneous Information (* Miscellaneous Pharmacy Order) Discontinue all previ... PROTOCOL ONCE XX 10/12/16 14:00 10/12/16 14:01 DC Diagnostic Test (Pha) 1 ea 1 ea Q1H XX 10/12/16 14:00 10/12/16 18:27 Insulin Human Regular/Sodium Chloride (Novolin-R/NS) 100 ml @ 0 mls/hr PER PROTOCOL IV 10/12/16 14:00 Miscellaneous Information (* Miscellaneous Pharmacy Order) Treatment of Hypoglycemia: 1.BG 51... Per protocol XX 10/12/16 14:00 Dextrose (D50w Syringe) 25 ml Q15M PRN IV Till BS 80 mg/dL or above x2 10/12/16 14:00 Dextrose 50 ml 50 ml Q15M PRN IV Till BS 80 mg/dL or above x2 10/12/16 14:00 Piperacillin Sod/ Tazobactam Sod 100 ml @ 200 mls/hr Q6 IVPB 10/12/16 14:00 10/12/16 14:45 DC Propofol 100 ml @ ud STK-MED ONCE .ROUTE 10/12/16 14:03 10/12/16 14:04 DC Vancomycin HCl 250 ml @ 125 mls/hr ONCE IVPB 10/12/16 15:00 10/12/16 16:59 DC 10/12/16 16:22 Piperacillin Sod/ Tazobactam Sod 100 ml @ 200 mls/hr ONCE ONCE IVPB 10/12/16 15:00 10/12/16 15:29 DC 10/12/16 15:43 Piperacillin Sod/ Tazobactam Sod (Zosyn 3.375gm/ 100 ml (Pmx)) 100 ml @ 200 mls/hr Q6 IVPB 10/12/16 19:00 Vecuronium Ravia 9 mg 9 mg ONCE ONCE IV 10/12/16 16:30 10/12/16 16:31 DC 10/12/16 16:29 Vecuronium Ravia 100 mg/ Dextrose 100 ml @ 5.4 mls/hr [id number] ONCE IV 10/12/16 16:09 10/13/16 10:40 10/12/16 16:48 Dopamine HCl/ Dextrose 250 ml @ ud STK-MED ONCE .ROUTE 10/12/16 16:31 10/12/16 16:32 DC Dopamine HCl/ Dextrose 250 ml @ 6.75 mls/hr TITRATE IV 10/12/16 17:00 10/12/16 16:37 Sodium Chloride (1/2 NS) 1,000 ml @ 75 mls/hr [id number] IV 10/12/16 16:30 10/12/16 16:55 IV Flush (NS 3 ml) 3 ml PER PROTOCOL IV 10/12/16 16:30 Ondansetron HCl (Zofran Inj) 4 mg Q6H PRN IV NAUSEA AND/OR VOMITING 10/12/16 16:30 Pantoprazole (Protonix Iv) 40 mg DAILY@06 IV 10/13/16 06:00 Procedures/[place] [id number] Radiology Main Line: [phone] DIAGNOSTIC IMAGING REPORT Patient: ELVIA KOLB : 1965 Age: 51 Sex: M MR #: [id number] DOS: 10/12/16 1243 Ordering MD: BENITO NIX MD Location: E/R Room/Bed: PROCEDURE: CHEST 1VW CLINICAL INDICATION: Shortness of breath TECHNIQUE: Single frontal view of the chest was obtained COMPARISON: 09/23/2016 FINDINGS: Interval placement of endotracheal tube with the tip 5.4 cm kandis. The cardiac size is moderately enlarged, stable. Aortic vascular calcifications are demonstrated. There is worsening mild pulmonary vascular congestion. Developing left upper lobe consolidation. Mild degenerative changes of the visualized osseous structures are visualized. IMPRESSION: 1. Interval intubation. 2. Interval development of left upper lobe consolidation may represent alveolar edema versus pneumonia. 3. Stable cardiomegaly with worsening mild pulmonary vascular congestion.. RPTAT:PP .Prasad Joy MD, MD Date Time Electronically viewed and signed by .Prasad Joy MD, MD on 10/12/2016 13:13 .V/ CC: BENITO NIX MD [place] [id number] Radiology Main Line: [phone] DIAGNOSTIC IMAGING REPORT Patient: ELVIA KOLB : 1965 Age: 51 Sex: M MR #: [id number] DOS: 10/12/16 1243 Ordering MD: BENITO NIX MD Location: E/R Room/Bed: PROCEDURE: CT Brain without contrast. CLINICAL INDICATION: Cardiac arrest. TECHNIQUE: A CT of the brain was performed on a multidetector CT scanner utilizing axial sections from the skull base through the vertex without contrast. Images were reviewed on a high-resolution PACS workstation. Exam CTDI = 45.01, and 43.86 mGy and the DLP = 720.23 mGy-cm. One or more of the following dose reduction techniques were used: Automated exposure control Adjustment of the mA and/or kV according to patient size. Use of iterative reconstruction technique. COMPARISON: Head CT 08/02/2016 FINDINGS: There is mild sulcal effacement more evident in the posterior temporal , parietal and occipital lobes suggesting mild cerebral edema . There is preservation of holden-white matter differentiation deep brain nuclei. Chronic lacunar infarct in the right coronal radiata extending into the basal ganglia is again noted. Chronic cortical infarct in the right parietal lobe is again identified. There is no evidence of intracranial hemorrhage, mass effect or midline shift. There is a focal calcific density within the right suprasellar cistern. No abnormal intra-axial or extra-axial fluid collections are seen. The density of the brain is normal and the holden/white matter differentiation is well preserved. There is mild generalized volume loss. The osseous structures are unremarkable. Frothy secretions are seen in the left maxillary sinus. Trace mucosal thickening is seen in the ethmoid and sphenoid sinuses. A call report was made to Dr. DINAH Gann at 10/12/2016 3:15:37 PM following completion of the examination. IMPRESSION: 1. Mild symmetric sulcal effacement involving the parietal, posterior temporal and occipital lobes suggesting mild cerebral edema compatible with history of anoxic/hypoxic brain injury. The deep brain nuclei appears unremarkable on the current CT scan. Recommend follow-up CT or MRI for further evaluation as the findings are usually not apparent on early scans. 2. No intracranial hemorrhage, mass effect or midline shift. 3. Chronic lacunar infarct in the right coronal radiata extending into the basal ganglia. Chronic cortical infarct in the right parietal lobe. 4. Mild generalized volume loss, prominent for the patient's age. RPTAT: BB .Nati Arguello MD, MD Date Time Electronically viewed and signed by .Nati Arguello MD, MD on 10/12/2016 15:16 .O/ CC: BENITO NIX MD EKG: At 12:42 PM read by emergency physician Rate/Rhythm: Normal Sinus Rhythm 62 beats/min QRS, ST, T-waves: No ST elevation, no T inversion, first-degree AV block, LAD , incomplete right bundle branch block, inferior, anterior, lateral Q waves Impression: Abnormal EKG EKG: At 15:30 PM read by emergency physician Rate/Rhythm: Normal Sinus Rhythm 82 beats/min QRS, ST, T-waves: No ST elevation, no T inversion, first-degree AV block, LAD , incomplete right bundle branch block, inferior, anterior, lateral Q waves Impression: Abnormal EKG MEDICAL MAKING DECISION: The patient is a 51-year-old male, presenting with acute cardiac arrest, acute respiratory failure, acute septic shock, acute CHF, acute pneumonia, acute metabolic acidosis, acute anoxic encephalopathy. He was admitted intubated, treated with Sanchez catheter, nasogastric tube, 1 L normal saline IV, vancomycin IV, Zosyn IV for acute septic shock, dopamine drip for acute septic shock and acute bradycardia, 1 amp of sodium bicarb IV for acute metabolic acidosis with good response Acute hypothermia protocol was started Admit MDM: Patient's infectious symptoms have not stabilized and the patient is at risk of rapid decompensation. The patient will be admitted for careful hydration, antibiotic therapy, and infectious source control. Severe Sepsis criteria: Infectious source: [] Pneumonia End organ damage indicated by: [] Lactate > 2.0 mmol/L Hypotension (SBP < 90 or >40 mmHG drop or MAP < 65) Acute Resp Failure (sat < 92% w/o oxygen) Sepsis Management: Time of recognition of severe sepsis/septic shock: []1 pm Within 3 hours of recognition: Blood cultures x 2 before broad-spectrum antibiotics: []Yes 30 ml/kg NS bolus []Not completed because of acute CHF Initial lactate []9.3 Repeat lactate []pending Septic Shock Assessment: Any lactic acid > 4.0 []yes Persistent hypotension (SBP < 90 or 40 mmHg drop, MAP < 65) despite 30 mL/kg IV fluid bolus []yes Volume Re-assessment for Septic Shock (post 30 ml/kg bolus): Temp []91, BP []149/100, HR []100, RR[]26, Pox []100% on ventilator Heart []Regular rate & rhythm Lungs []No crackles Skin []Cold & dry Cap Refill []Less than 2 seconds Peripheral pulses []Radially present Persistent Hypotension Treatment: Comfort care []yes Central line []yes Vasopressor started []Dopamine b/c concurrent bradycardia I considered further perfusion assessment with CVP measurement, SCVO2, bedside ultrasound volume assessment, passive leg raise, trial of further fluid bolus. And proceeded with Pressor Critical Care: Critical care time [] 45 minutes Emergent fluid management while maintaining close respiratory support. Provision of immediate and broad-spectrum antibiotic therapy. Simultaneous assessment for possible sources in order to direct targeted therapy. Consideration for invasive and chemical support to prevent cardiopulmonary collapse. Endotracheal Intubation by me: Pre assessment performed. See preceding note for details. Pre-oxygenation performed with 100% oxygen RSI: Performed w/o complication or hypoxic events. Medications as ordered. Blade: [place] Scope ET Tube: 7.5 cm Depth: 23 cm at the lip Intubation confirmed by colorimetric CO2, equal breath sounds, quiet over the stomach. Central Line Placement by me: Patient consented, sterilely draped, full prep, gown, glove, mask, time out performed. Anesthesia: 1% lidocaine locally Location: rt femoral vein Device: Multiple lumen Technique: Seldinger technique. Secured with suture. Results: Venous return from all ports with easy saline flush. No complications. Guide wire retrieved and disposed of. [ED Ultrasound: Central line placed by me using concurrent ultrasound guidance. Real time image archived in the medical record confirms vascular anatomy. Departure Diagnosis: Primary Impression: Cardiac arrest Additional Impressions: Septic shock Acute respiratory failure Bradycardia CHF (congestive heart failure) Pneumonia Metabolic acidosis Anoxic encephalopathy Condition: Critical Comments Consultation: I discussed the patient with the construction services technician Dr. Rosenthal who evaluated patient at the bedside I discussed the findings with the patient. I discussed the patient with the on- call hospitalist Dr. Haddad who was made aware of the lab, the treatment, the patient condition and my discussion with the construction services technician. The patient is admitted to ICU at 3 PM BENITO NIX MD October 12, 2016 12:41 BENITO NIX MD October 12, 2016 12:41
[2016-10-12 12:57] LABS: ADD SCAN DIFF NO
[2016-10-12 13:07] LABS: AADO2 Arterial 593.5 mmHg (7.0-24.0); Allen Test ACCEPTAB; Arterial Base Excess -21.9 mmol/L (-3.0-3); Arterial COHb 0.7 % (0.0-3.0); Arterial Fraction of Oxyhgb 72.7 % (93.0-99.0); Arterial HCO3 10.2 mmol/L (22.0-26.0); Arterial MetHb 0.4 % (0.0-1.5); Arterial Total Hemglobin 10.7 g/dl (12.0-18.0); Blood Gas Low PEEP Setting 0 cmH2O; MODE VENT - AC
[2016-10-12 13:14] LABS: BASOPHILS % 0.4 % (0.0-2.0); EOSINOPHILS # 0.1 10^3/ul (0.0-0.5); EOSINOPHILS % 1.4 % (0.0-7.0); HEMATOCRIT 36.7 % (42.0-52.0); HEMOGLOBIN 10.8 g/dl (14.0-18.0); LYMPHOCYTES # 1.9 10^3/ul (0.8-2.9); LYMPHOCYTES % 24.5 % (15.0-51.0); MEAN CORPUSCULAR HEMOGLOBIN 28.2 pg (29.0-33.0); MEAN CORPUSCULAR HGB CONC 29.4 g/dl (32.0-37.0); MEAN CORPUSCULAR VOLUME 95.8 fl (82.0-101.0); MEAN PLATELET VOLUME 10.8 fl (7.4-10.4); MONOCYTE # 0.5 10^3/ul (0.3-0.9); MONOCYTES % 6.7 % (0.0-11.0); NEUTROPHIL # 5.1 10^3/ul (1.6-7.5); NEUTROPHILS % 65.1 % (39.0-77.0); NUCLEATED RED BLOOD CELLS% 0.3 /100WBC (0.0-0.0); PLATELET COUNT 209 10^3/UL (140-415); RED BLOOD COUNT 3.83 10^6/ul (4.70-6.10); RED CELL DISTRIBUTION WIDTH 19.3 % (11.5-14.5); WHITE BLOOD COUNT 7.9 10^3/ul (4.8-10.8)
--- NOTE | 2016-10-12 13:14 | RADRPT ---
PROCEDURE: CHEST 1VW CLINICAL INDICATION: Shortness of breath TECHNIQUE: Single frontal view of the chest was obtained COMPARISON: 09/23/2016 FINDINGS: Interval placement of endotracheal tube with the tip 5.4 cm kandis. The cardiac size is moderately enlarged, stable. Aortic vascular calcifications are demonstrated. There is worsening mild pulmonary vascular congestion. Developing left upper lobe consolidation. Mild degenerative changes of the visualized osseous structures are visualized. IMPRESSION: 1. Interval intubation. 2. Interval development of left upper lobe consolidation may represent alveolar edema versus pneumon ia. 3. Stable cardiomegaly with worsening mild pulmonary vascular congestion.. RPTAT:PP .Prasad Joy MD, MD Date Time Electronically viewed and signed by .Prasad Joy MD, on 10/12/2016 13:13 .V/
[2016-10-12] MEDS ORDERED: NA BICARBONATE 8.4% 50 ML SYG IV STA (13:15)
[2016-10-12 13:16] LABS: INR 1.44; PROTIME 17.6 Sec (12.2-14.2); PT RATIO 1.4
[2016-10-12 13:17] LABS: PARTIAL THROMBOPLASTIN TIME 31.2 Sec (25.0-35.0)
[2016-10-12 13:51] LABS: ALBUMIN 3.2 g/dl (3.3-4.9)
[2016-10-12 13:52] LABS: POTASSIUM 3.6 mmol/L (3.5-5.1)
[2016-10-12 13:54] LABS: ALBUMIN/GLOBULIN RATIO 0.86; BILIRUBIN,INDIRECT 0.4 mg/dl (0-1.1); BILIRUBIN,TOTAL 0.4 mg/dl (0.2-1.3); CREATININE 1.18 mg/dl (0.61-1.24); TOTAL PROTEIN 6.9 g/dl (6.1-8.1)
[2016-10-12 13:55] LABS: CALCIUM 8.6 mg/dl (8.4-10.2); MAGNESIUM 1.9 mg/dl (1.7-2.5)
[2016-10-12] MEDS ORDERED: NA BICARBONATE 8.4% 50 ML SYG IV ONE (14:00)
[2016-10-12] MEDS ORDERED: MEPERIDINE 25 MG INJ IV PRN (14:00)
[2016-10-12] MEDS ORDERED: DEXTROSE 50% 50 ML SYRINGE IV PRN ×2 (14:00)
[2016-10-12] MEDS ORDERED: PIPER-TAZO 3.375 GM IV (PMX) 100 ML IVPB SCH (14:00)
[2016-10-12] MEDS ORDERED: ACETAMINOPHEN 650 MG SUPP PR PRN (14:00)
[2016-10-12] MEDS ORDERED: ACETAMINOPHEN 650MG/20.3ML CUP PO PRN (14:00)
[2016-10-12] MEDS ORDERED: PROPOFOL 100 ML ONE (14:03)
[2016-10-12 14:06] LABS: TROPONIN-I 0.016 ng/ml (0.00-0.12)
[2016-10-12] MEDS ORDERED: FLUO20CA38 PO (14:13)
[2016-10-12] MEDS: PROPOFOL 100 ML IV SCH ×2 (14:22→23:25)
[2016-10-12 14:37] LABS: AADO2 Arterial 227.9 mmHg (7.0-24.0); Allen Test ACCEPTAB; Arterial Base Excess -5.2 mmol/L (-3.0-3); Arterial COHb 0.1 % (0.0-3.0); Arterial Fraction of Oxyhgb 98.9 % (93.0-99.0); Arterial HCO3 17.4 mmol/L (22.0-26.0); Arterial MetHb 0 % (0.0-1.5); Arterial Total Hemglobin 12.1 g/dl (12.0-18.0); Blood Gas Low PEEP Setting 0 cmH2O; MODE VENT - AC
[2016-10-12] MEDS: ACCU-CHEK XX SCH ×11 (15:00→23:30)
[2016-10-12] MEDS ORDERED: PIPER-TAZO 3.375 GM IV (PMX) 100 ML IVPB ONE (15:00)
[2016-10-12] MEDS ORDERED: VANCOMYCIN 1 GM (PMX) 250 ML IVPB SCH (15:00)
--- NOTE | 2016-10-12 15:16 | RADRPT ---
PROCEDURE: CT Brain without contrast. CLINICAL INDICATION: Cardiac arrest. TECHNIQUE: A CT of the brain was performed on a multidetector CT scanner utilizing axial sections from the skull base through the vertex without contrast. Images were reviewed on a high-resolution [employer] workstation. Exam CTDI = 45.01, and 43.86 mGy and the DLP = 720.23 mGy-cm. One or more of the following dose reduction techniques were used: Automated exposure control Adjustment of the mA and/or kV according to patient size. Use of iterative reconstruction technique. COMPARISON: Head CT 08/02/2016 FINDINGS: There is mild sulcal effacement more evident in the posterior temporal , parietal and occipital lobe s suggesting mild cerebral edema . There is preservation of holden-white matter differentiation deep brain nuclei. Chronic lacunar infarct in the right coronal radiata extending into the basal ganglia is again noted. Chronic cortical infarct in the right parietal lobe is again identified. There is no evidence of intracranial hemorrhage, mass effect or midline shift. There is a focal calcific dens ity within the right suprasellar cistern. No abnormal intra-axial or extra-axial fluid collections a re seen. The density of the brain is normal and the holden/white matter differentiation is well prese rved. There is mild generalized volume loss. The osseous structures are unremarkable. Frothy secret ions are seen in the left maxillary sinus. Trace mucosal thickening is seen in the ethmoid and sphen oid sinuses. A call report was made to Dr. DINAH Gann at 10/12/2016 3:15:37 PM following completion of the exam ination. IMPRESSION: 1. Mild symmetric sulcal effacement involving the parietal, posterior temporal and occipital lobes suggesting mild cerebral edema compatible with history of anoxic/hypoxic brain injury. The deep bra in nuclei appears unremarkable on the current CT scan. Recommend follow-up CT or MRI for further belén luation as the findings are usually not apparent on early scans. 2. No intracranial hemorrhage, mass effect or midline shift. 3. Chronic lacunar infarct in the right coronal radiata extending into the basal ganglia. Chronic cortical infarct in the right parietal lobe. 4. Mild generalized volume loss, prominent for the patient's age. RPTAT: BB .Nati Arguello MD, MD Date Time Electronically viewed and signed by .Nati Arguello MD, on 10/12/2016 15:16 .O/
[2016-10-12] MEDS: SOD CHLORIDE 0.9% 1,000 ML IV SCH ×2 (15:44→23:47)
[2016-10-12] MEDS ORDERED: VECURONIUM 100 MG in DEXTROSE 5% 100 ML IV ONE (16:09)
[2016-10-12] MEDS ORDERED: ONDANSETRON 4 MG INJ IV PRN (16:30)
[2016-10-12] MEDS ORDERED: NACL 0.9% 3 ML SYG IV SCH (16:30)
[2016-10-12] MEDS ORDERED: SOD CHLORIDE 0.45% 1,000 ML IV SCH (16:30)
[2016-10-12] MEDS ORDERED: VECURONIUM 10 MG VIAL IV ONE (16:30)
[2016-10-12] MEDS ORDERED: DOPamine-D5W 1.6 MG/ML 250 ML ONE (16:31)
[2016-10-12] MEDS: DOPamine-D5W 1.6 MG/ML 250 ML IV SCH (16:37)
[2016-10-12 17:59] LABS: ADD UMIC YES; URINE BILIRUBIN (Dip) NEGATIVE (NEGATIVE); URINE BLOOD (Dip) 1+ (NEGATIVE); URINE COLOR LT. YELLOW (YELLOW); URINE KETONES (Dip) NEGATIVE (NEGATIVE); URINE LEUKOCYTE ESTERASE (Dip) NEGATIVE (NEGATIVE); URINE NITRITE (Dip) NEGATIVE (NEGATIVE); URINE TOTAL PROTEIN (Dip) 4+ (NEGATIVE); URINE UROBILINOGEN (Dip) 0.2 E.U./dL (0.1-1.0)
[2016-10-12 18:15] LABS: BACTERIA,URINE MODERATE
--- NOTE | 2016-10-12 18:17 | CONS ---
DATE OF ADMISSION: 10/12/2016 DATE OF CONSULTATION: REASON FOR CONSULT: Cardiac arrest. HISTORY OF PRESENT ILLNESS: This is a 51-year-old gentleman found down at an alcohol and drug rehab facility, unclear how long he had been down. Upon arrival of EMS, the patient was pulseless. He r eceived CPR with return of circulation and then he had several episodes where he has lost ventilatio n requiring epinephrine and again chest compressions. Following final return of circulation, the pa tient continues mechanical ventilation, continues aggressive volume resuscitation, pending possible initiation of vasopressors. PAST MEDICAL HISTORY: Congestive cardiac failure, atrial fibrillation, history of substance abuse. MEDICATIONS: Per chart. ALLERGIES: ERYTHROMYCIN BASE DRUGS. SOCIAL HISTORY: Tobacco or alcohol history unknown. FAMILY HISTORY: Unknown. SYSTEMS REVIEW: A 12-point review of systems currently unable to perform. PHYSICAL EXAMINATION: GENERAL: Elderly-appearing gentleman, intubated on mechanical ventilation. VITAL SIGNS: Currently afebrile, temperature 98, pulse is 60, blood pressure 100/40, O2 saturation 96%, FIO2 of 100%. HEENT: Pupils are sluggish. CARDIAC: S1, S2, no added sounds or murmurs. CHEST: Diminished air entry bilaterally. ABDOMEN: Soft, nontender. No guarding or rebound. EXTREMITIES: No cyanosis, clubbing, edema. NEUROLOGIC: Unable to assess. LABORATORY DATA: White count 7.9, hemoglobin 10.8, platelets of 209. Lactic acid 9.3. Chemistries pending. ABG: pH 6.9, pCO2 of 52, PaO2 of 57. INR 1.4. DIAGNOSTIC DATA: Chest x-ray was reviewed, shows left upper lobe consolidation. IMPRESSION AND PLAN: 1. Cardiopulmonary arrest. 2. Possible aspiration pneumonia. 3. Likely anoxic brain injury. 4. History of congestive heart failure and atrial fibrillation. 5. Incomplete data. PLAN: 1. Continue mechanical ventilation. 2. Broad-spectrum antibiotics. 3. Correction of severe metabolic acidosis with bicarbonate and aggressive volume resuscitation. 4. Broad spectrum antibiotics for likely aspiration pneumonia. 5. Obtain further history from chart. 6. environmental services worker contact next of kin as overall prognosis is very poor. Dictated By: TRUNG HALL/EDILIA Conf#: [id number] DID#: [id number]
[2016-10-12] MEDS: ARTIFICIAL TEARS 15 ML OPH BOTH EYES SCH ×2 (19:13→23:30)
[2016-10-12] MEDS: OCULAR LUBRICANT 3.5 GM OPH OINT BOTH EYES SCH ×2 (19:13→23:31)
[2016-10-12] MEDS: PIPER-TAZO 3.375 GM IV (PMX) 100 ML IVPB SCH ×2 (19:14→23:47)
[2016-10-12 20:02] LABS: AADO2 Arterial 188.1 mmHg (7.0-24.0); Allen Test ACCEPTAB; Arterial Base Excess -1.2 mmol/L (-3.0-3); Arterial COHb 0.5 % (0.0-3.0); Arterial Fraction of Oxyhgb 96.1 % (93.0-99.0); Arterial HCO3 20.2 mmol/L (22.0-26.0); Arterial MetHb 0.3 % (0.0-1.5); MODE VENT - AC
[2016-10-12] MEDS: INSULIN HUMAN REGULAR 100 UNIT in SOD CHLORIDE 0.9% 99 ML IV SCH ×3 (20:15→23:34)
[2016-10-12] MEDS: FUROSEMIDE 20 MG INJ IV SCH (21:31)
--- NOTE | 2016-10-12 23:59 | HP ---
DATE OF ADMISSION: 10/12/2016 CHIEF COMPLAINT: Cardiac arrest. HISTORY OF PRESENT ILLNESS: The patient is a 51-year-old male with history of cardiomyopathy with E F 25%. The patient has had multiple hospitalizations. He has history of schizophrenia, drug abuse. The patient was recently hospitalized last month for diagnosis of chest pain with atrial flutter. The patient presents with cardiac arrest. The patient arrested in the field. He went into PEA. H e was given epinephrine. He then went to ventricular fibrillation. He was then shocked, went into PEA again in the ED here and was given 1 amp of epi. The patient did have return of circulation. T he patient does follow up with Dr. Rodríguez for his cardiomyopathy. The patient's pupils are fixed a nd dilated. PAST MEDICAL HISTORY: As per HPI. With history of CHF, CAD, cardiomyopathy, nonischemic anemia. HOME MEDICATIONS: 1. Albuterol. 2. Amiodarone. 3. Eliquis. 4. Aspirin. 5. Coreg. 6. Digoxin. 7. Lasix. 8. Insulin Lantus. 9. Lisinopril. 10. Losartan. 11. Nitroglycerin. 12. Potassium. FAMILY HISTORY: Noncontributory. ALLERGIES: NO KNOWN DRUG ALLERGIES. SOCIAL HISTORY: The patient has a history of drug abuse. REVIEW OF SYSTEMS: A 12-point review of systems cannot be obtained secondary to patient's poor ment ation. PHYSICAL EXAMINATION: VITAL SIGNS: Temperature is 91.5, pulse 76, respiratory rate 26, BP 101/94, saturation 100% on mech anical ventilation. GENERAL: Intubated and sedated. HEENT: Pupils are fixed and dilated. CHEST: Clear to auscultation. CARDIOVASCULAR: Regular rate and rhythm. ABDOMEN: Nondistended, nontender, soft. EXTREMITIES: No clubbing, cyanosis, edema. LABORATORY TESTS: White count 7.9, hemoglobin 10.8, platelets are 209. Chemistry: Sodium is 145, potassium is 3.6, chloride 114, BUN 21. Lactic acid 9.3 and 5.4. DIAGNOSTICS: Chest x-ray: Interval intubation. Interval development of left upper lobe consolidat ion may represent alveolar edema versus pneumonia. Stable cardiomegaly with worsening mild pulmonar y vascular congestion. Brain CT: Shows mild symmetric sulcal effacement involving the parietal, po sterior temporal, and occipital lobes suggesting mild cerebral edema, compatible with history of ano xic brain injury. No intracranial hemorrhage, mass effect, or midline shift. Chronic lacunar infar ct and mild generalized volume loss. ASSESSMENT AND PLAN: 1. Cardiac arrest with return of circulation. The patient is on hypothermia protocol. The patient does appear to have anoxic brain injury with dilated and fixed pupils with the brain CT that shows development of cerebral edema. 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 2. History of schizophrenia. 3. History of substance abuse. 4. History of nonischemic cardiomyopathy with ejection fraction of 25%. 5. Acute respiratory failure. Pulmonology consultation is appreciated. 6. Anemia, likely secondary to chronic disease. 7. Prophylaxis: Sequential compression devices. Dictated By: TIFFANIE DIA/NTS Conf#: [id number] DID#: [id number]
[2016-10-13] VITALS (55 sets, daily range): BP systolic 87–142; BP diastolic 67–113; PULSE 64–110; RESP 15–26; TEMP 91.5; Ht 175.3 cm; Wt 86.5 kg
[2016-10-13] MEDS: ACCU-CHEK XX SCH ×23 (00:35→22:59)
[2016-10-13 00:53] LABS: ADD SCAN DIFF NO
[2016-10-13 01:09] LABS: INR 1.29; PROTIME 16.2 Sec (12.2-14.2); PT RATIO 1.3
[2016-10-13 01:10] LABS: PARTIAL THROMBOPLASTIN TIME 28.8 Sec (25.0-35.0)
[2016-10-13 01:11] LABS: ABNORMAL IP MESSAGE 1; BASOPHILS % 0.1 % (0.0-2.0); EOSINOPHILS % 0.1 % (0.0-7.0); HEMATOCRIT 40.6 % (42.0-52.0); HEMOGLOBIN 12.7 g/dl (14.0-18.0); LYMPHOCYTES # 0.4 10^3/ul (0.8-2.9); LYMPHOCYTES % 3.5 % (15.0-51.0); MEAN CORPUSCULAR HEMOGLOBIN 27.5 pg (29.0-33.0); MEAN CORPUSCULAR HGB CONC 31.3 g/dl (32.0-37.0); MEAN CORPUSCULAR VOLUME 87.9 fl (82.0-101.0); MEAN PLATELET VOLUME 10.9 fl (7.4-10.4); MONOCYTE # 0.6 10^3/ul (0.3-0.9); MONOCYTES % 5.1 % (0.0-11.0); NEUTROPHIL # 10.6 10^3/ul (1.6-7.5); NEUTROPHILS % 90.6 % (39.0-77.0); PLATELET COUNT 276 10^3/UL (140-415); RED BLOOD COUNT 4.62 10^6/ul (4.70-6.10); RED CELL DISTRIBUTION WIDTH 18.6 % (11.5-14.5); WHITE BLOOD COUNT 11.7 10^3/ul (4.8-10.8)
[2016-10-13 01:16] LABS: CALCIUM 9.3 mg/dl (8.4-10.2); MAGNESIUM 1.6 mg/dl (1.7-2.5)
[2016-10-13 01:29] LABS: TROPONIN-I 0.049 ng/ml (0.00-0.12)
[2016-10-13 01:30] LABS: CK-MB 7.79 ng/ml (0.0-2.4)
[2016-10-13 02:36] LABS: AADO2 Arterial 197.5 mmHg (7.0-24.0); Allen Test ACCEPTAB; Arterial Base Excess 1.1 mmol/L (-3.0-3); Arterial COHb 0.7 % (0.0-3.0); Arterial Fraction of Oxyhgb 96.4 % (93.0-99.0); Arterial HCO3 20.5 mmol/L (22.0-26.0); Arterial MetHb 0 % (0.0-1.5); Arterial Total Hemglobin 13.8 g/dl (12.0-18.0); MODE VENT - AC
[2016-10-13] MEDS: INSULIN HUMAN REGULAR 100 UNIT in SOD CHLORIDE 0.9% 99 ML IV SCH ×5 (02:58→22:08)
--- NOTE | 2016-10-13 03:34 | CONS ---
DATE OF ADMISSION: 10/12/2016 DATE OF CONSULTATION: 10/12/2016 CARDIOLOGY CONSULTATION REASON FOR CONSULTATION: Cardiac arrest, congestive heart failure, cardiomyopathy. REQUESTING PHYSICIAN: Dr. Romeo Wilson from the hospitalist service. HISTORY OF PRESENT ILLNESS: Mr. Hopkins is a 51-year-old male with the history of severely depres sed left ventricular ejection fraction last known to be approximately 25% by echo February 2016 and 14% by Lexiscan February 2016 with no active ischemia, hypertension, substance abuse, recurrent ep isodes of ventricular tachycardia, prior cardiac arrest, last admitted September 2016 for congestive hea rt failure exacerbation, atrial flutter, who now presents status post full cardiac arrest. Per repo rt, the patient was found at his chronic care facility nonresponsive. The patient's initial rhythm was PEA. The patient received ACLS protocol with initial return of a perfusing rhythm. The patient was brought here to the emergency department at [facility] where again he lost pu lse and recurrent 2 further rounds of epinephrine in order to return an active perfusing rhythm. Th e patient then also had bradyarrhythmia requiring initiation of dopamine to remain heart rate. The patient was intubated here and has additionally undergone a chest x-ray that revealed interval devel opment of left upper lobe consolidation, worsening pulmonary vascular congestion, and a head CT that revealed mild symmetric sulcal effacement suggesting mild cerebral edema compatible with anoxic hyp oxic brain injury, chronic lacunar infarct in right sanford radiata, generalized volume loss. The pa giftyriky's electrocardiogram revealed sinus rhythm, rate of 62, first degree AV block, incomplete right bundle branch block, inferior Q's, anterolateral Q's. The patient, at this time, remains intubated and sedated on hypothermia protocol and dopamine pressure support. The patient was admitted to ICU . PAST MEDICAL HISTORY: As above in HPI. MEDICATIONS CURRENTLY IN HOSPITAL: 1. Tylenol p.r.n. 2. Protonix 20 mg IV daily. 3. Zosyn. 4. Dopamine. 5. IV fluid hydration at 75 mL an hour. 6. Zofran. 7. Vecuronium. 9. Demerol. ALLERGIES: ERYTHROMYCIN. SOCIAL HISTORY: No current tobacco, questionable ETOH, positive history of illicit drug use. FAMILY HISTORY: No history of sudden cardiac or early CAD. REVIEW OF SYSTEMS: As above in HPI. CONSTITUTIONAL: No fevers, chills. PULMONARY: Respiratory failure status post intubation. GASTROINTESTINAL: No nausea, vomiting. GENITOURINARY: No hematuria. MUSCULOSKELETAL: History of significant degenerative joint disease. PSYCHIATRIC: No significant psychiatric history. PHYSICAL EXAMINATION: VITAL SIGNS: T-current 91.8, blood pressure 142/103, pulse 74, respiratory rate 26, saturation 100% . GENERAL: The patient is intubated and sedated, encephalopathic. NECK: JVP approximately 9 cm water. CHEST: Upper airway rhonchorous sounds. HEART: Regular rate and rhythm. Normal S1, S2. Laterally displaced PMI. I/ systolic murmur. ABDOMEN: Positive bowel sounds, soft. EXTREMITIES: No pitting edema, 1+ pulses bilaterally, posterior tibial. LABORATORIES: As above in HPI with most recently a blood sugar of 224. Lactic acid 5.4. IMAGING STUDIES: As above in HPI. No further imaging studies for my review at this time. ECG: As above in HPI. No further electrocardiograms for my review at this time. IMPRESSION: 1. Cardiac arrest, currently with a perfusing rhythm on dopamine. 2. Cardiomyopathy with severely depressed left ventricular ejection fraction. 3. Congestive heart failure, systolic, acute on chronic. 4. Respiratory failure, status post intubation. 5. Encephalopathy. 6. Anemia. 7. Cerebral edema. 8. Initial acidosis, improving. 9. History of ventricular tachycardia. 10. History of substance abuse. RECOMMENDATIONS: 1. At this time, the patient will be admitted to the ICU and should be maintained on telemetry marychuy toring in ICU. Continue the patient's dopamine pressure support as necessary for heart rate and blo od pressure control with weaning as possible. 2. Continue the patient's hypothermic protocol at this time. 3. Follow the patient's volume status closely, decrease IV fluids, and give a dose of Lasix to ensu re reasonable volume status in the setting of severe depressed left ventricular ejection fraction, I V fluids ongoing, and chest x-ray revealing congestive heart failure. 4. Continue the patient on monitoring, follow up all culture data. 5. Pending neurologic evaluation. 6. We will check repeat echo for reassessment of the patient's ejection fraction, and we will trend the patient's cardiac enzymes to assess for acute myocardial infarction for ongoing cardiac damage. Thank you for allowing me to take part in the care of this patient. I will continue to follow along very closely with you. Further recommendations will be made as the patient progresses through his inpatient hospital clinical course. Dictated By: DEXTER VERDUZCO/EDILIA Conf#: [id number] DID#: [id number] CC: ROMEO WILSON MD;*EndCC*
[2016-10-13] MEDS: DOPamine-D5W 1.6 MG/ML 250 ML IV SCH (03:50)
[2016-10-13 04:38] LABS: ADD SCAN DIFF NO
[2016-10-13] MEDS: DEXTROSE 5%-0.45% NACL 1,000 ML IV SCH ×2 (04:55→18:11)
[2016-10-13 04:58] LABS: ABNORMAL IP MESSAGE 1; BASOPHILS % 0.1 % (0.0-2.0); EOSINOPHILS % 0.4 % (0.0-7.0); HEMATOCRIT 40.5 % (42.0-52.0); HEMOGLOBIN 12.6 g/dl (14.0-18.0); LYMPHOCYTES # 0.2 10^3/ul (0.8-2.9); LYMPHOCYTES % 2.7 % (15.0-51.0); MEAN CORPUSCULAR HEMOGLOBIN 26.9 pg (29.0-33.0); MEAN CORPUSCULAR HGB CONC 31.1 g/dl (32.0-37.0); MEAN CORPUSCULAR VOLUME 86.4 fl (82.0-101.0); MEAN PLATELET VOLUME 10.5 fl (7.4-10.4); MONOCYTE # 0.5 10^3/ul (0.3-0.9); MONOCYTES % 5.2 % (0.0-11.0); NEUTROPHIL # 8.2 10^3/ul (1.6-7.5); NEUTROPHILS % 91.2 % (39.0-77.0); PLATELET COUNT 260 10^3/UL (140-415); RED BLOOD COUNT 4.69 10^6/ul (4.70-6.10); RED CELL DISTRIBUTION WIDTH 18.4 % (11.5-14.5)
[2016-10-13 05:01] LABS: INR 1.31; PROTIME 16.4 Sec (12.2-14.2); PT RATIO 1.3
[2016-10-13 05:02] LABS: PARTIAL THROMBOPLASTIN TIME 27.3 Sec (25.0-35.0)
[2016-10-13] MEDS: PANTOPRAZOLE 40 MG INJ IV SCH (05:31)
[2016-10-13] MEDS: ARTIFICIAL TEARS 15 ML OPH BOTH EYES SCH ×3 (05:31→18:01)
[2016-10-13] MEDS: PIPER-TAZO 3.375 GM IV (PMX) 100 ML IVPB SCH ×3 (05:31→18:37)
[2016-10-13] MEDS: OCULAR LUBRICANT 3.5 GM OPH OINT BOTH EYES SCH ×3 (05:31→18:01)
[2016-10-13 05:34] LABS: CREATININE 1.08 mg/dl (0.61-1.24)
[2016-10-13 05:35] LABS: CALCIUM 9.2 mg/dl (8.4-10.2); CHOL/HDL RATIO 3.2 RATIO; MAGNESIUM 1.4 mg/dl (1.7-2.5); PHOSPHORUS 1.1 mg/dl (2.5-4.9)
[2016-10-13 05:36] LABS: CALCIUM 9.1 mg/dl (8.4-10.2); MAGNESIUM 1.4 mg/dl (1.7-2.5)
[2016-10-13 05:38] LABS: TROPONIN-I 0.055 ng/ml (0.00-0.12)
[2016-10-13 05:39] LABS: CK-MB 9.1 ng/ml (0.0-2.4); POTASSIUM 2.8 mmol/L (3.5-5.1)
[2016-10-13] MEDS ORDERED: DEXTROSE 5% IVPB ONE (06:00)
[2016-10-13] MEDS ORDERED: POTASSIUM CHLORIDE IVPB ONE (06:00)
--- NOTE | 2016-10-13 06:59 | RADRPT ---
PROCEDURE: CHEST - 1 VIEW October 13, 1016 06:43 a.m. CLINICAL INDICATION: 51-year-old male with respiratory distress. TECHNIQUE: A single frontal AP semi-erect portable view of the chest was performed. The images we re reviewed on a PACS workstation. COMPARISON: Chest x-ray October 12, 2016 at 01:00 p.m. FINDINGS: There is an endotracheal tube identified with the tip approximately 6.1 cm above the kandis. There has been interval placement of a nasogastric tube extending into the left upper quadrant stomach reg ion. The cardiomediastinal silhouette is enlarged but without significant interval change. There i s a shallow inspiration. There is persistent pulmonary vascular congestion with slight interval nelsy aring. There is no evidence for pneumothorax. The osseous structures are intact. IMPRESSION: 1. Endotracheal tube with the tip in the upper trachea. 2. Interval placement of nasogastric tube. 3. Cardiomegaly. 4. Persistent pulmonary vascular congestion with slight interval clearing. .Neeraj Melvin MD, MD Date Time Electronically viewed and signed by .Neeraj Melvin MD, on 10/13/2016 06:59 .M/
[2016-10-13] MEDS: POTASSIUM CHLORIDE 30 MEQ in DEXTROSE 5% 250 ML IV SCH ×2 (07:19→09:30)
--- NOTE | 2016-10-13 08:50 | CONS ---
Date/Time of Note Date/Time of Note DATE: 10/13/16 TIME: 08:47 Assessment/Plan Assessment/Plan Additional Assessment/Plan 1. Cardiac arrest, currently with a perfusing rhythm on dopamine- now in ICU on hypothermia protocol. 2. Cardiomyopathy with severely depressed left ventricular ejection fraction- ICD PRE-D/C ADVISED if recovers to consent. 3. Congestive heart failure, systolic, acute on chronic- con't med rx - good urine output. 4. Respiratory failure, status post intubation. 5. Encephalopathy- intubated now. 6. Anemia. 7. Cerebral edema. 8. Initial acidosis, improving - better now. 9. History of ventricular tachycardia. 10. History of substance abuse. Consultation Date/Type/Reason Admit Date/Time Initial Consult Date 24 HR Interval Summary Free Text/Dictation Critically ILL - con't ICD care - pre-D/C ICD advised when pt recovers, if agrees to have it done. ROS: No fever, no chills, no nausea, no vomiting, no diarrhea/constipation No recent weight changes No chest pain, no PND, no orthopnea No dizziness, blurred vision No thirst, no heat or cold intolerance (per nurse) Exam/Review of Systems Vital Signs Vitals Vital Signs Date Time Temp Pulse Resp B/P Pulse Ox O2 Delivery O2 Flow Rate FiO2 10/13/16 08:00 91.5 68 24 127/99 100 Mechanical Ventilator 10/13/16 07:15 40 Intake and Output 10/12/16 10/12/16 10/13/16 15:00 23:00 07:00 Intake Total 600 ml 200 ml Output Total 2000 ml 6200 ml Balance -1400 ml -6000 ml Exam General: WN/WD/NAD, AOx 0 post-arrst HEENT: Unicetric/atraumatic/EOMI (does not follow commands), intub NECK: JVD elevated, no thyromegaly Lymph: no lymphadenopathy HEART: regular with no S3, II/ systolic murmur at apex, pMI L LUNGS: Coarse sounds ABD: soft, NT, ND, +BS : Intact Neuro: non focal SKIN: chronic changes EXT: trace edema Results Result Diagram: 10/13/16 0400 10/13/16 0400 Results 24 hrs Laboratory Tests Test 10/12/16 12:38 10/12/16 12:55 10/12/16 12:59 10/12/16 13:34 Bedside Glucose 134 White Blood Count 7.9 Red Blood Count 3.83 L Hemoglobin 10.8 L Hematocrit 36.7 L Mean Corpuscular Volume 95.8 Mean Corpuscular Hemoglobin 28.2 L Mean Corpuscular Hemoglobin Concent 29.4 L Red Cell Distribution Width 19.3 H Platelet Count 209 # Mean Platelet Volume 10.8 H Neutrophils % 65.1 Lymphocytes % 24.5 Monocytes % 6.7 Eosinophils % 1.4 Basophils % 0.4 Nucleated Red Blood Cells % 0.3 H Neutrophils # 5.1 Lymphocytes # 1.9 Monocytes # 0.5 Eosinophils # 0.1 Basophils # 0.0 Nucleated Red Blood Cells # 0.0 Prothrombin Time 17.6 H Prothrombin Time Ratio 1.4 INR International Normalized Ratio 1.44 Activated Partial Thromboplast Time 31.2 Sodium Level 145 H Potassium Level 3.6 Chloride Level 114 H Carbon Dioxide Level 12 L Anion Gap 23 H Blood Urea Nitrogen 21 H Creatinine 1.18 Glucose Level 195 Lactic Acid Level 9.3 *H Calcium Level 8.6 Magnesium Level 1.9 Total Bilirubin 0.4 Direct Bilirubin 0.00 Indirect Bilirubin 0.4 Aspartate Amino Transf (AST/SGOT) 29 Alanine Aminotransferase (ALT/SGPT) 22 Alkaline Phosphatase 85 Troponin I 0.016 Total Protein 6.9 Albumin 3.2 L Globulin 3.70 H Albumin/Globulin Ratio 0.86 Lipase 112 Digoxin Level 0.5 L Blood Gas Specimen Source Blood arterial Blood arterial Arterial Blood Date Drawn 10/12/2016 12:55:47 PM 10/12/2016 2:30:48 PM Arterial Blood pH (Temp corrected) 6.911 *L 7.445 Arterial Blood pCO2 (Temp correct) 52.1 H 25.9 L Arterial Blood pO2 (Temp corrected) 67.4 L 459.2 H Arterial Blood HCO3 10.2 L 17.4 L Arterial Blood Base Excess -21.9 L -5.2 L Arterial Blood Oxygen Saturation 73.5 L 99.0 H Oleksandr Test ACCEPTAB ACCEPTAB Arterial Blood Gas Puncture Site Left Radial Right Radial Arterial Blood Carboxyhemoglobin 0.7 0.1 Arterial Blood Methemoglobin 0.4 0 Blood Gas A-a O2 Differential 593.5 H 227.9 H Oxyhemoglobin Percent 72.7 L 98.9 Total Hemoglobin 10.7 L 12.1 Blood Gas Temperature 37.0 37.0 Blood Gas Respiration Rate 20.0 26.0 Blood Gas Actual Respiration Rate 20 34 Blood Gas Modality VENT - AC VENT - AC FiO2 100.0 100.0 Blood Gas Tidal Volume 600.0 600.0 Blood Gas Low PEEP Setting 0 0 Blood Gas Critical Value Read Back DR FARIHA Mendoza Blood Gas Notified Whom ALFONZOD ALFONZOD Blood Gas Notified Time 10/12/2016 1:07:10 PM 10/12/2016 2:37:31 PM Test 10/12/16 14:55 10/12/16 15:24 10/12/16 16:19 10/12/16 16:45 Lactic Acid Level 5.4 *H 4.8 *H Bedside Glucose 220 224 H Test 10/12/16 17:35 10/12/16 17:42 10/12/16 18:15 10/12/16 19:07 Bedside Glucose 261 H 296 H 302 H Urine Color LT. YELLOW Urine Clarity SLIGHTLY CLOUDY Urine pH 7.0 Urine Specific [place] 1.020 Urine Ketones NEGATIVE Urine Nitrite NEGATIVE Urine Bilirubin NEGATIVE Urine Urobilinogen 0.2 E.U./dL Urine Leukocyte Esterase NEGATIVE Urine Microscopic RBC 10-25 Urine Microscopic WBC 5-10 Urine Amorphous Urates MODERATE Urine Bacteria MODERATE Urine Hemoglobin 1+ H Urine Glucose 0.25% H Urine Total Protein 4+ H Test 10/12/16 19:47 10/12/16 20:06 10/12/16 21:25 10/12/16 22:10 Blood Gas Specimen Source Blood arterial Arterial Blood Date Drawn 10/12/2016 7:55:02 PM Arterial Blood pH (Temp corrected) 7.577 *H Arterial Blood pCO2 (Temp correct) 21.5 L Arterial Blood pO2 (Temp corrected) 75.9 L Arterial Blood HCO3 20.2 L Arterial Blood Base Excess -1.2 Arterial Blood Oxygen Saturation 96.9 Oleksandr Test ACCEPTAB Arterial Blood Gas Puncture Site Right Radial Arterial Blood Carboxyhemoglobin 0.5 Arterial Blood Methemoglobin 0.3 Blood Gas A-a O2 Differential 188.1 H Oxyhemoglobin Percent 96.1 Total Hemoglobin 13.0 Blood Gas Temperature 33.2 Blood Gas Respiration Rate 26.0 Blood Gas Actual Respiration Rate 26 Blood Gas Modality VENT - AC FiO2 40.0 Blood Gas Tidal Volume 600.0 Blood Gas Inspiratory Pressure 22.0 Blood Gas Critical Value Read Back Nelli PULIDO RN Blood Gas Notified Whom MG Blood Gas Notified Time 10/12/2016 8:00:55 PM Bedside Glucose 295 H 281 H White Blood Count 11.7 #H Red Blood Count 4.62 #L Hemoglobin 12.7 L Hematocrit 40.6 L Mean Corpuscular Volume 87.9 Mean Corpuscular Hemoglobin 27.5 L Mean Corpuscular Hemoglobin Concent 31.3 L Red Cell Distribution Width 18.6 H Platelet Count 276 # Mean Platelet Volume 10.9 H Neutrophils % 90.6 H Lymphocytes % 3.5 L Monocytes % 5.1 Eosinophils % 0.1 Basophils % 0.1 Nucleated Red Blood Cells % 0.0 Neutrophils # 10.6 H Lymphocytes # 0.4 L Monocytes # 0.6 Eosinophils # 0.0 Basophils # 0.0 Nucleated Red Blood Cells # 0.0 Prothrombin Time 16.2 H Prothrombin Time Ratio 1.3 INR International Normalized Ratio 1.29 Activated Partial Thromboplast Time 28.8 Calcium Level 9.3 Phosphorus Level 1.0 L Magnesium Level 1.6 L Creatine Kinase 372 H Creatine Kinase Index 2.1 Creatinine Kinase MB (Mass) 7.79 H Troponin I 0.049 Amylase Level 242 H Lipase 45 Test 10/12/16 22:18 10/12/16 23:29 10/13/16 00:35 10/13/16 01:40 Bedside Glucose 309 H 231 H 201 186 Test 10/13/16 01:47 10/13/16 02:55 10/13/16 04:00 10/13/16 04:09 Blood Gas Specimen Source Blood arterial Arterial Blood Date Drawn 10/13/2016 2:30:20 AM Arterial Blood pH (Temp corrected) 7.671 *H Arterial Blood pCO2 (Temp correct) 17.6 L Arterial Blood pO2 (Temp corrected) 71.2 L Arterial Blood HCO3 20.5 L Arterial Blood Base Excess 1.1 Arterial Blood Oxygen Saturation 97.1 Oleksandr Test ACCEPTAB Arterial Blood Gas Puncture Site Right Radial Arterial Blood Carboxyhemoglobin 0.7 Arterial Blood Methemoglobin 0 Blood Gas A-a O2 Differential 197.5 H Oxyhemoglobin Percent 96.4 Total Hemoglobin 13.8 Blood Gas Temperature 33.0 Blood Gas Respiration Rate 26.0 Blood Gas Actual Respiration Rate 26 Blood Gas Modality VENT - AC FiO2 40.0 Blood Gas Tidal Volume 600.0 Blood Gas Inspiratory Pressure 23.0 Blood Gas Critical Value Read Back Nelli PULIDO RN Blood Gas Notified Whom MG Blood Gas Notified Time 10/13/2016 2:35:49 AM Bedside Glucose 155 137 White Blood Count 9.0 # Red Blood Count 4.69 L Hemoglobin 12.6 L Hematocrit 40.5 L Mean Corpuscular Volume 86.4 Mean Corpuscular Hemoglobin 26.9 L Mean Corpuscular Hemoglobin Concent 31.1 L Red Cell Distribution Width 18.4 H Platelet Count 260 Mean Platelet Volume 10.5 H Neutrophils % 91.2 H Lymphocytes % 2.7 L Monocytes % 5.2 Eosinophils % 0.4 Basophils % 0.1 Nucleated Red Blood Cells % 0.0 Neutrophils # 8.2 H Lymphocytes # 0.2 L Monocytes # 0.5 Eosinophils # 0.0 Basophils # 0.0 Nucleated Red Blood Cells # 0.0 Prothrombin Time 16.4 H Prothrombin Time Ratio 1.3 INR International Normalized Ratio 1.31 Activated Partial Thromboplast Time 27.3 Sodium Level 149 H Potassium Level 2.8 *L Chloride Level 102 # Carbon Dioxide Level 27 # Anion Gap 23 H Blood Urea Nitrogen 25 H Creatinine 1.08 Glucose Level 180 Hemoglobin A1c 5.5 Calcium Level 9.1 Phosphorus Level 1.0 L Magnesium Level 1.4 L Creatine Kinase 333 H Creatine Kinase Index 2.7 Creatinine Kinase MB (Mass) 9.10 H Troponin I 0.055 Triglycerides Level 57 Cholesterol Level 131 LDL Cholesterol, Calculated 80 HDL Cholesterol 40 Cholesterol/HDL Ratio 3.2 Amylase Level 242 H Lipase 28 Test 10/13/16 05:00 10/13/16 06:03 10/13/16 07:10 10/13/16 08:02 Bedside Glucose 116 155 247 H 142 Medications Medications Current Medications Sodium Chloride (NS) 1,000 ml @ 100 mls/hr Q10H IV Last administered on t 15:44; Admin Dose 100 MLS/HR; Start 10/12/16 at 13:47 Acetaminophen (Tylenol Supp) 650 mg Q4H PRN [place] TEMP > 37C; Start 10/12/16 at 14: 00 Acetaminophen (Tylenol Liquid) 650 mg Q4H PRN PO TEMP > 37C; Start 10/12/16 at 14:00 Acetaminophen (Tylenol Supp) 500 mg Q6H [place] ; Start 10/13/16 at 14:00 Acetaminophen (Tylenol Liquid) 500 mg Q6H PO ; Start 10/13/16 at 14:00 Meperidine HCl (Demerol) 12.5 mg Q4H PRN IV POST OPERATIVE SHIVERING; Start 10/12/16 at 14:00 Meperidine HCl (Demerol) 25 mg Q4H PRN IV POST OPERATIVE SHIVERING; Start at 14:00 Eye Lubricant (Akwa Oint) 1 applic Q6 BOTH EYES Last administered on 10/13/16 05:31; Admin Dose 1 APPLIC; Start 10/12/16 at 18:00 Eye Lubricant (Artificial Tears Oph) 2 drop Q6 BOTH EYES Last administered on 05:31; Admin Dose 2 DROP; Start 10/12/16 at 18:00 Diagnostic Test (Pha) (Accu-Chek) 1 ea Q1H XX Last administered on 10/13/16 08: 05; Admin Dose 1 EA; Start 10/12/16 at 14:00 Dextrose (D50w Syringe) 25 ml Q15M PRN IV Till BS 80 mg/dL or above x2; Start 10/12/16 at 14:00 Dextrose 50 ml 50 ml Q15M PRN IV Till BS 80 mg/dL or above x2; Start 10/12/16 at 14:00 Piperacillin Sod/ Tazobactam Sod 100 ml @ 200 mls/hr Q6 IVPB Last administered on 10/13/16 05:31; Admin Dose 200 MLS/HR; Start 10/12/16 at 19:00 Vecuronium [place] 100 mg/ Dextrose 100 ml @ 5.4 mls/hr [id number] ONCE IV Last administered on 10/12/16 16:48; Admin Dose 5.4 MLS/HR; Start 10/12/16 at 16:09; Stop 10/13/16 at 10:40 Dopamine HCl/ Dextrose 250 ml @ 6.75 mls/hr TITRATE IV Last administered on 03:50; Admin Dose 16.875 MLS/HR; Start 10/12/16 at 17:00 Ondansetron HCl (Zofran Inj) 4 mg Q6H PRN IV NAUSEA AND/OR VOMITING; Start 10/12 at 16:30 Pantoprazole (Protonix Iv) 40 mg DAILY@06 IV Last administered on 10/13/16 05: 31; Admin Dose 40 MG; Start 10/13/16 at 06:00 Furosemide 20 mg 20 mg DAILY IV Last administered on 10/12/16 21:31; Admin Dose 20 MG; Start 10/12/16 at 21:00 Dextrose/Sodium Chloride 1,000 ml @ 75 mls/hr [id number] IV Last administered on 10/13/16 04:55; Admin Dose 75 MLS/HR; Start 10/13/16 at 05:00 Potassium Chloride/Dextrose (KCl/D5W) 265 ml @ 88.333 mls/ hr Q3H IV Last administered on 10/13/16 07:19; Admin Dose 88.333 MLS/HR; Start 10/13/16 at 06:30 ; Stop 10/13/16 at 12:29 ROEL BLACK MD October 13, 2016 08:50
[2016-10-13] MEDS: FUROSEMIDE 20 MG INJ IV SCH (09:00)
[2016-10-13 09:16] LABS: AADO2 Arterial 189.1 mmHg (7.0-24.0); Allen Test ACCEPTAB; Arterial Base Excess 3.9 mmol/L (-3.0-3); Arterial COHb 0.6 % (0.0-3.0); Arterial Fraction of Oxyhgb 96.6 % (93.0-99.0); Arterial HCO3 23.1 mmol/L (22.0-26.0); Arterial MetHb 0.3 % (0.0-1.5); Arterial Total Hemglobin 13.9 g/dl (12.0-18.0); Blood Gas Low PEEP Setting 0 cmH2O; MODE VENT - AC
[2016-10-13] MEDS: SOD CHLORIDE 0.9% 1,000 ML IV SCH (09:47)
--- NOTE | 2016-10-13 11:09 | CONS ---
Date/Time of Note Date/Time of Note DATE: 10/13/16 TIME: 11:06 Consult Date/Type/Reason Admit Date/Time October 12, 2016 at 16:30 Initial Consult Date Type of Consultation: pulmonary ICU Subjective Patient continues mechanical ventilation and hypothermia protocol Remains sedated paralyzed on insulin drip Objective Vital Signs Date Time Temp Pulse Resp B/P Pulse Ox O2 Delivery O2 Flow Rate FiO2 10/13/16 09:35 77 16 100 40 10/13/16 08:00 91.5 127/99 Mechanical Ventilator Intake and Output 10/12/16 10/12/16 10/13/16 15:00 23:00 07:00 Intake Total 600 ml 200 ml Output Total 2000 ml 6200 ml Balance -1400 ml -6000 ml Exam PHYSICAL EXAMINATION: GENERAL: Elderly-appearing gentleman, intubated on mechanical ventilation. VITAL SIGNS: As above HEENT: Pupils are sluggish. CARDIAC: S1, S2, no added sounds or murmurs. CHEST: Diminished air entry bilaterally. ABDOMEN: Soft, nontender. No guarding or rebound. EXTREMITIES: No cyanosis, clubbing, edema. NEUROLOGIC: Unable to assess. Results/Medications Result Diagram: 10/13/16 0400 10/13/16 0400 Results 24 hrs Laboratory Tests Test 10/12/16 12:38 10/12/16 12:55 10/12/16 12:59 10/12/16 13:34 Bedside Glucose 134 White Blood Count 7.9 Red Blood Count 3.83 L Hemoglobin 10.8 L Hematocrit 36.7 L Mean Corpuscular Volume 95.8 Mean Corpuscular Hemoglobin 28.2 L Mean Corpuscular Hemoglobin Concent 29.4 L Red Cell Distribution Width 19.3 H Platelet Count 209 # Mean Platelet Volume 10.8 H Neutrophils % 65.1 Lymphocytes % 24.5 Monocytes % 6.7 Eosinophils % 1.4 Basophils % 0.4 Nucleated Red Blood Cells % 0.3 H Neutrophils # 5.1 Lymphocytes # 1.9 Monocytes # 0.5 Eosinophils # 0.1 Basophils # 0.0 Nucleated Red Blood Cells # 0.0 Prothrombin Time 17.6 H Prothrombin Time Ratio 1.4 INR International Normalized Ratio 1.44 Activated Partial Thromboplast Time 31.2 Sodium Level 145 H Potassium Level 3.6 Chloride Level 114 H Carbon Dioxide Level 12 L Anion Gap 23 H Blood Urea Nitrogen 21 H Creatinine 1.18 Glucose Level 195 Lactic Acid Level 9.3 *H Calcium Level 8.6 Magnesium Level 1.9 Total Bilirubin 0.4 Direct Bilirubin 0.00 Indirect Bilirubin 0.4 Aspartate Amino Transf (AST/SGOT) 29 Alanine Aminotransferase (ALT/SGPT) 22 Alkaline Phosphatase 85 Troponin I 0.016 Total Protein 6.9 Albumin 3.2 L Globulin 3.70 H Albumin/Globulin Ratio 0.86 Lipase 112 Digoxin Level 0.5 L Blood Gas Specimen Source Blood arterial Blood arterial Arterial Blood Date Drawn 10/12/2016 12:55:47 PM 10/12/2016 2:30:48 PM Arterial Blood pH (Temp corrected) 6.911 *L 7.445 Arterial Blood pCO2 (Temp correct) 52.1 H 25.9 L Arterial Blood pO2 (Temp corrected) 67.4 L 459.2 H Arterial Blood HCO3 10.2 L 17.4 L Arterial Blood Base Excess -21.9 L -5.2 L Arterial Blood Oxygen Saturation 73.5 L 99.0 H Oleksandr Test ACCEPTAB ACCEPTAB Arterial Blood Gas Puncture Site Left Radial Right Radial Arterial Blood Carboxyhemoglobin 0.7 0.1 Arterial Blood Methemoglobin 0.4 0 Blood Gas A-a O2 Differential 593.5 H 227.9 H Oxyhemoglobin Percent 72.7 L 98.9 Total Hemoglobin 10.7 L 12.1 Blood Gas Temperature 37.0 37.0 Blood Gas Respiration Rate 20.0 26.0 Blood Gas Actual Respiration Rate 20 34 Blood Gas Modality VENT - AC VENT - AC FiO2 100.0 100.0 Blood Gas Tidal Volume 600.0 600.0 Blood Gas Low PEEP Setting 0 0 Blood Gas Critical Value Read Back DR FARIHA Mendoza Blood Gas Notified Whom KARIME SCHAFFER Blood Gas Notified Time 10/12/2016 1:07:10 PM 10/12/2016 2:37:31 PM Test 10/12/16 14:55 10/12/16 15:24 10/12/16 16:19 10/12/16 16:45 Lactic Acid Level 5.4 *H 4.8 *H Bedside Glucose 220 224 H Test 10/12/16 17:35 10/12/16 17:42 10/12/16 18:15 10/12/16 19:07 Bedside Glucose 261 H 296 H 302 H Urine Color LT. YELLOW Urine Clarity SLIGHTLY CLOUDY Urine pH 7.0 Urine Specific [place] 1.020 Urine Ketones NEGATIVE Urine Nitrite NEGATIVE Urine Bilirubin NEGATIVE Urine Urobilinogen 0.2 E.U./dL Urine Leukocyte Esterase NEGATIVE Urine Microscopic RBC 10-25 Urine Microscopic WBC 5-10 Urine Amorphous Urates MODERATE Urine Bacteria MODERATE Urine Hemoglobin 1+ H Urine Glucose 0.25% H Urine Total Protein 4+ H Test 10/12/16 19:47 10/12/16 20:06 10/12/16 21:25 10/12/16 22:10 Blood Gas Specimen Source Blood arterial Arterial Blood Date Drawn 10/12/2016 7:55:02 PM Arterial Blood pH (Temp corrected) 7.577 *H Arterial Blood pCO2 (Temp correct) 21.5 L Arterial Blood pO2 (Temp corrected) 75.9 L Arterial Blood HCO3 20.2 L Arterial Blood Base Excess -1.2 Arterial Blood Oxygen Saturation 96.9 Oleksandr Test ACCEPTAB Arterial Blood Gas Puncture Site Right Radial Arterial Blood Carboxyhemoglobin 0.5 Arterial Blood Methemoglobin 0.3 Blood Gas A-a O2 Differential 188.1 H Oxyhemoglobin Percent 96.1 Total Hemoglobin 13.0 Blood Gas Temperature 33.2 Blood Gas Respiration Rate 26.0 Blood Gas Actual Respiration Rate 26 Blood Gas Modality VENT - AC FiO2 40.0 Blood Gas Tidal Volume 600.0 Blood Gas Inspiratory Pressure 22.0 Blood Gas Critical Value Read Back Nelli PULIDO RN Blood Gas Notified Whom MG Blood Gas Notified Time 10/12/2016 8:00:55 PM Bedside Glucose 295 H 281 H White Blood Count 11.7 #H Red Blood Count 4.62 #L Hemoglobin 12.7 L Hematocrit 40.6 L Mean Corpuscular Volume 87.9 Mean Corpuscular Hemoglobin 27.5 L Mean Corpuscular Hemoglobin Concent 31.3 L Red Cell Distribution Width 18.6 H Platelet Count 276 # Mean Platelet Volume 10.9 H Neutrophils % 90.6 H Lymphocytes % 3.5 L Monocytes % 5.1 Eosinophils % 0.1 Basophils % 0.1 Nucleated Red Blood Cells % 0.0 Neutrophils # 10.6 H Lymphocytes # 0.4 L Monocytes # 0.6 Eosinophils # 0.0 Basophils # 0.0 Nucleated Red Blood Cells # 0.0 Prothrombin Time 16.2 H Prothrombin Time Ratio 1.3 INR International Normalized Ratio 1.29 Activated Partial Thromboplast Time 28.8 Calcium Level 9.3 Phosphorus Level 1.0 L Magnesium Level 1.6 L Creatine Kinase 372 H Creatine Kinase Index 2.1 Creatinine Kinase MB (Mass) 7.79 H Troponin I 0.049 Amylase Level 242 H Lipase 45 Test 10/12/16 22:18 10/12/16 23:29 10/13/16 00:35 10/13/16 01:40 Bedside Glucose 309 H 231 H 201 186 Test 10/13/16 01:47 10/13/16 02:55 10/13/16 04:00 10/13/16 04:09 Blood Gas Specimen Source Blood arterial Arterial Blood Date Drawn 10/13/2016 2:30:20 AM Arterial Blood pH (Temp corrected) 7.671 *H Arterial Blood pCO2 (Temp correct) 17.6 L Arterial Blood pO2 (Temp corrected) 71.2 L Arterial Blood HCO3 20.5 L Arterial Blood Base Excess 1.1 Arterial Blood Oxygen Saturation 97.1 Oleksandr Test ACCEPTAB Arterial Blood Gas Puncture Site Right Radial Arterial Blood Carboxyhemoglobin 0.7 Arterial Blood Methemoglobin 0 Blood Gas A-a O2 Differential 197.5 H Oxyhemoglobin Percent 96.4 Total Hemoglobin 13.8 Blood Gas Temperature 33.0 Blood Gas Respiration Rate 26.0 Blood Gas Actual Respiration Rate 26 Blood Gas Modality VENT - AC FiO2 40.0 Blood Gas Tidal Volume 600.0 Blood Gas Inspiratory Pressure 23.0 Blood Gas Critical Value Read Back Nelli PULIDO RN Blood Gas Notified Whom MG Blood Gas Notified Time 10/13/2016 2:35:49 AM Bedside Glucose 155 137 White Blood Count 9.0 # Red Blood Count 4.69 L Hemoglobin 12.6 L Hematocrit 40.5 L Mean Corpuscular Volume 86.4 Mean Corpuscular Hemoglobin 26.9 L Mean Corpuscular Hemoglobin Concent 31.1 L Red Cell Distribution Width 18.4 H Platelet Count 260 Mean Platelet Volume 10.5 H Neutrophils % 91.2 H Lymphocytes % 2.7 L Monocytes % 5.2 Eosinophils % 0.4 Basophils % 0.1 Nucleated Red Blood Cells % 0.0 Neutrophils # 8.2 H Lymphocytes # 0.2 L Monocytes # 0.5 Eosinophils # 0.0 Basophils # 0.0 Nucleated Red Blood Cells # 0.0 Prothrombin Time 16.4 H Prothrombin Time Ratio 1.3 INR International Normalized Ratio 1.31 Activated Partial Thromboplast Time 27.3 Sodium Level 149 H Potassium Level 2.8 *L Chloride Level 102 # Carbon Dioxide Level 27 # Anion Gap 23 H Blood Urea Nitrogen 25 H Creatinine 1.08 Glucose Level 180 Hemoglobin A1c 5.5 Calcium Level 9.1 Phosphorus Level 1.0 L Magnesium Level 1.4 L Creatine Kinase 333 H Creatine Kinase Index 2.7 Creatinine Kinase MB (Mass) 9.10 H Troponin I 0.055 Triglycerides Level 57 Cholesterol Level 131 LDL Cholesterol, Calculated 80 HDL Cholesterol 40 Cholesterol/HDL Ratio 3.2 Amylase Level 242 H Lipase 28 Test 10/13/16 05:00 10/13/16 06:03 10/13/16 07:10 10/13/16 07:47 Bedside Glucose 116 155 247 H Blood Gas Specimen Source Blood arterial Arterial Blood Date Drawn 10/13/2016 9:04:33 AM Arterial Blood pH (Temp corrected) 7.704 *H Arterial Blood pCO2 (Temp correct) 18.5 L Arterial Blood pO2 (Temp corrected) 78.7 L Arterial Blood HCO3 23.1 Arterial Blood Base Excess 3.9 H Arterial Blood Oxygen Saturation 97.5 Oleksandr Test ACCEPTAB Arterial Blood Gas Puncture Site Right Radial Arterial Blood Carboxyhemoglobin 0.6 Arterial Blood Methemoglobin 0.3 Blood Gas A-a O2 Differential 189.1 H Oxyhemoglobin Percent 96.6 Total Hemoglobin 13.9 Blood Gas Temperature 33.0 Blood Gas Respiration Rate 26.0 Blood Gas Actual Respiration Rate 26 Blood Gas Modality VENT - AC FiO2 40.0 Blood Gas Tidal Volume 600.0 Blood Gas Low PEEP Setting 0 Blood Gas Critical Value Read Back J JASON RN Blood Gas Notified Whom JLD Blood Gas Notified Time 10/13/2016 9:16:32 AM Test 10/13/16 08:02 10/13/16 09:07 10/13/16 10:10 Bedside Glucose 142 188 222 H Medications Current Medications Sodium Chloride (NS) 1,000 ml @ 100 mls/hr Q10H IV Last administered on t 15:44; Admin Dose 100 MLS/HR; Start 10/12/16 at 13:47 Acetaminophen (Tylenol Supp) 650 mg Q4H PRN [place] TEMP > 37C; Start 10/12/16 at 14: 00 Acetaminophen (Tylenol Liquid) 650 mg Q4H PRN PO TEMP > 37C; Start 10/12/16 at 14:00 Acetaminophen (Tylenol Supp) 500 mg Q6H NE ; Start 10/13/16 at 14:00 Acetaminophen (Tylenol Liquid) 500 mg Q6H PO ; Start 10/13/16 at 14:00 Meperidine HCl (Demerol) 12.5 mg Q4H PRN IV POST OPERATIVE SHIVERING; Start 10/12/16 at 14:00 Meperidine HCl (Demerol) 25 mg Q4H PRN IV POST OPERATIVE SHIVERING; Start at 14:00 Eye Lubricant (Akwa Oint) 1 applic Q6 BOTH EYES Last administered on 10/13/16 05:31; Admin Dose 1 APPLIC; Start 10/12/16 at 18:00 Eye Lubricant (Artificial Tears Oph) 2 drop Q6 BOTH EYES Last administered on 05:31; Admin Dose 2 DROP; Start 10/12/16 at 18:00 Diagnostic Test (Pha) (Accu-Chek) 1 ea Q1H XX Last administered on 10/13/16 10: 22; Admin Dose 1 EA; Start 10/12/16 at 14:00 Dextrose (D50w Syringe) 25 ml Q15M PRN IV Till BS 80 mg/dL or above x2; Start 10/12/16 at 14:00 Dextrose 50 ml 50 ml Q15M PRN IV Till BS 80 mg/dL or above x2; Start 10/12/16 at 14:00 Piperacillin Sod/ Tazobactam Sod 100 ml @ 200 mls/hr Q6 IVPB Last administered on 10/13/16 05:31; Admin Dose 200 MLS/HR; Start 10/12/16 at 19:00 Dopamine HCl/ Dextrose 250 ml @ 6.75 mls/hr TITRATE IV Last administered on 03:50; Admin Dose 16.875 MLS/HR; Start 10/12/16 at 17:00 Ondansetron HCl (Zofran Inj) 4 mg Q6H PRN IV NAUSEA AND/OR VOMITING; Start 10/12 at 16:30 Pantoprazole (Protonix Iv) 40 mg DAILY@06 IV Last administered on 10/13/16 05: 31; Admin Dose 40 MG; Start 10/13/16 at 06:00 Furosemide 20 mg 20 mg DAILY IV Last administered on 10/12/16 21:31; Admin Dose 20 MG; Start 10/12/16 at 21:00 Dextrose/Sodium Chloride 1,000 ml @ 75 mls/hr [id number] IV Last administered on 10/13/16 04:55; Admin Dose 75 MLS/HR; Start 10/13/16 at 05:00 Potassium Chloride 30 meq/ Dextrose 265 ml @ 88.333 mls/ hr Q3H IV Last administered on 10/13/16 07:19; Admin Dose 88.333 MLS/HR; Start 10/13/16 at 06:30 ; Stop 10/13/16 at 12:29 Magnesium Sulfate 100 ml @ 25 mls/hr ONCE IVPB Last administered on 10/13/16 10:44; Admin Dose 25 MLS/HR; Start 10/13/16 at 11:30; Stop 10/13/16 at 15:29 Potassium Phosphate 40 meq/ Sodium Chloride 259.0909 ml @ 64.773 m... ONCE IVPB ; Start 10/13/16 at 11:30; Stop 10/13/16 at 15:29 Potassium Phosphate/Sodium Chloride (K Phos (Meq)/NS) 254.5455 ml @ 63.636 m... ONCE ONCE IVPB ; Start 10/13/16 at 11:00; Stop 10/13/16 at 14:59; Status UNV Assessment/Plan Chief Complaint/Hosp Course IMPRESSION AND PLAN: 1. Cardiopulmonary arrest. 2. Possible aspiration pneumonia. 3. Likely anoxic brain injury. 4. History of congestive heart failure and atrial fibrillation. Decreased ejection fraction 5. History of substance abuse PLAN: 1. Continue mechanical ventilation. Continue hypothermia protocol 2. Broad-spectrum antibiotics, for aspiration pneumonia 3. Decrease minute ventilation has respiratory alkalosis 4. Start tube feeding once off paralytics 5. 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
[2016-10-13] MEDS ORDERED: MAGNESIUM SULFATE 4 GM/100 ML 100 ML IVPB SCH (11:30)
[2016-10-13] MEDS ORDERED: POTASSIUM PHOSPHATE 40 MEQ in SOD CHLORIDE 0.9% 250 ML IVPB SCH (11:30)
[2016-10-13] MEDS ORDERED: POTASSIUM PHOSPHATE 20 MEQ in SOD CHLORIDE 0.9% 250 ML IVPB ONE (12:30)
[2016-10-13 12:46] LABS: ADD SCAN DIFF NO
[2016-10-13 12:57] LABS: ABNORMAL IP MESSAGE 1; BASOPHILS % 0.2 % (0.0-2.0); EOSINOPHILS # 0.1 10^3/ul (0.0-0.5); EOSINOPHILS % 0.5 % (0.0-7.0); HEMATOCRIT 40.4 % (42.0-52.0); HEMOGLOBIN 12.5 g/dl (14.0-18.0); LYMPHOCYTES # 0.2 10^3/ul (0.8-2.9); LYMPHOCYTES % 1.9 % (15.0-51.0); MEAN CORPUSCULAR HEMOGLOBIN 27.2 pg (29.0-33.0); MEAN CORPUSCULAR HGB CONC 30.9 g/dl (32.0-37.0); MEAN CORPUSCULAR VOLUME 87.8 fl (82.0-101.0); MEAN PLATELET VOLUME 9.9 fl (7.4-10.4); MONOCYTE # 0.4 10^3/ul (0.3-0.9); NEUTROPHIL # 11.7 10^3/ul (1.6-7.5); PLATELET COUNT 250 10^3/UL (140-415); RED CELL DISTRIBUTION WIDTH 18.5 % (11.5-14.5); WHITE BLOOD COUNT 12.4 10^3/ul (4.8-10.8)
[2016-10-13 13:03] LABS: INR 1.37; PROTIME 16.9 Sec (12.2-14.2); PT RATIO 1.3
[2016-10-13 13:11] LABS: CALCIUM 8.2 mg/dl (8.4-10.2); MAGNESIUM 1.8 mg/dl (1.7-2.5); PHOSPHORUS 3.8 mg/dl (2.5-4.9)
[2016-10-13 13:24] LABS: CK-MB 8.21 ng/ml (0.0-2.4)
[2016-10-13 13:42] LABS: TROPONIN-I 0.041 ng/ml (0.00-0.12)
--- NOTE | 2016-10-13 13:54 | PN ---
Date/Time of Note Date/Time of Note DATE: 10/13/16 TIME: 13:47 Assessment/Plan VTE Prophylaxis VTE Prophylaxis Intervention: SCD's Assessment/Plan Chief Complaint/Hosp Course 1. Cardiac arrest with return of circulation Continue hypothermia protocol Cardiology consultation appreciated 2. Anoxic encephalopathy EEG for brain evaluation Neurology consultation 3. Curette story failure secondary to cardiac arrest Continue vent support, pulmonology consultation appreciated 4. History of nonischemic cardiomyopathy with ejection fraction of 25%. 5. History of substance abuse. 6. Anemia, likely secondary to chronic disease. 7. History of schizophrenia. 8. FEN -Replace electrolytes Prophylaxis: Sequential compression devices Problems: Subjective 24 Hr Interval Summary Subjective hx not possible: pt non-verbal Exam/Review of Systems Vital Signs Vitals Vital Signs Date Time Temp Pulse Resp B/P Pulse Ox O2 Delivery O2 Flow Rate FiO2 10/13/16 12:30 69 16 116/88 100 10/13/16 12:00 91.9 Mechanical Ventilator 10/13/16 11:45 40 Intake and Output 10/12/16 10/12/16 10/13/16 15:00 23:00 07:00 Intake Total 600 ml 200 ml Output Total 2000 ml 6200 ml Balance -1400 ml -6000 ml Exam Constitutional: non-verbal ENMT: intubated Respiratory: clear to auscultation Cardiovascular: regular rate and rhythm Gastrointestinal: soft, No distended Musculoskeletal: nl extremities to inspection Results Result Diagram: 10/13/16 1230 10/13/16 0400 Results 24 hrs Laboratory Tests Test 10/12/16 14:55 10/12/16 15:24 10/12/16 16:19 10/12/16 16:45 Lactic Acid Level 5.4 *H 4.8 *H Bedside Glucose 220 224 H Test 10/12/16 17:35 10/12/16 17:42 10/12/16 18:15 10/12/16 19:07 Bedside Glucose 261 H 296 H 302 H Urine Color LT. YELLOW Urine Clarity SLIGHTLY CLOUDY Urine pH 7.0 Urine Specific [place] 1.020 Urine Ketones NEGATIVE Urine Nitrite NEGATIVE Urine Bilirubin NEGATIVE Urine Urobilinogen 0.2 E.U./dL Urine Leukocyte Esterase NEGATIVE Urine Microscopic RBC 10-25 Urine Microscopic WBC 5-10 Urine Amorphous Urates MODERATE Urine Bacteria MODERATE Urine Hemoglobin 1+ H Urine Glucose 0.25% H Urine Total Protein 4+ H Test 10/12/16 19:47 10/12/16 20:06 10/12/16 21:25 10/12/16 22:10 Blood Gas Specimen Source Blood arterial Arterial Blood Date Drawn 10/12/2016 7:55:02 PM Arterial Blood pH (Temp corrected) 7.577 *H Arterial Blood pCO2 (Temp correct) 21.5 L Arterial Blood pO2 (Temp corrected) 75.9 L Arterial Blood HCO3 20.2 L Arterial Blood Base Excess -1.2 Arterial Blood Oxygen Saturation 96.9 Oleksandr Test ACCEPTAB Arterial Blood Gas Puncture Site Right Radial Arterial Blood Carboxyhemoglobin 0.5 Arterial Blood Methemoglobin 0.3 Blood Gas A-a O2 Differential 188.1 H Oxyhemoglobin Percent 96.1 Total Hemoglobin 13.0 Blood Gas Temperature 33.2 Blood Gas Respiration Rate 26.0 Blood Gas Actual Respiration Rate 26 Blood Gas Modality VENT - AC FiO2 40.0 Blood Gas Tidal Volume 600.0 Blood Gas Inspiratory Pressure 22.0 Blood Gas Critical Value Read Back Nelli PULIDO RN Blood Gas Notified Whom MG Blood Gas Notified Time 10/12/2016 8:00:55 PM Bedside Glucose 295 H 281 H White Blood Count 11.7 #H Red Blood Count 4.62 #L Hemoglobin 12.7 L Hematocrit 40.6 L Mean Corpuscular Volume 87.9 Mean Corpuscular Hemoglobin 27.5 L Mean Corpuscular Hemoglobin Concent 31.3 L Red Cell Distribution Width 18.6 H Platelet Count 276 # Mean Platelet Volume 10.9 H Neutrophils % 90.6 H Lymphocytes % 3.5 L Monocytes % 5.1 Eosinophils % 0.1 Basophils % 0.1 Nucleated Red Blood Cells % 0.0 Neutrophils # 10.6 H Lymphocytes # 0.4 L Monocytes # 0.6 Eosinophils # 0.0 Basophils # 0.0 Nucleated Red Blood Cells # 0.0 Prothrombin Time 16.2 H Prothrombin Time Ratio 1.3 INR International Normalized Ratio 1.29 Activated Partial Thromboplast Time 28.8 Calcium Level 9.3 Phosphorus Level 1.0 L Magnesium Level 1.6 L Creatine Kinase 372 H Creatine Kinase Index 2.1 Creatinine Kinase MB (Mass) 7.79 H Troponin I 0.049 Amylase Level 242 H Lipase 45 Test 10/12/16 22:18 10/12/16 23:29 10/13/16 00:35 10/13/16 01:40 Bedside Glucose 309 H 231 H 201 186 Test 10/13/16 01:47 10/13/16 02:55 10/13/16 04:00 10/13/16 04:09 Blood Gas Specimen Source Blood arterial Arterial Blood Date Drawn 10/13/2016 2:30:20 AM Arterial Blood pH (Temp corrected) 7.671 *H Arterial Blood pCO2 (Temp correct) 17.6 L Arterial Blood pO2 (Temp corrected) 71.2 L Arterial Blood HCO3 20.5 L Arterial Blood Base Excess 1.1 Arterial Blood Oxygen Saturation 97.1 Oleksandr Test ACCEPTAB Arterial Blood Gas Puncture Site Right Radial Arterial Blood Carboxyhemoglobin 0.7 Arterial Blood Methemoglobin 0 Blood Gas A-a O2 Differential 197.5 H Oxyhemoglobin Percent 96.4 Total Hemoglobin 13.8 Blood Gas Temperature 33.0 Blood Gas Respiration Rate 26.0 Blood Gas Actual Respiration Rate 26 Blood Gas Modality VENT - AC FiO2 40.0 Blood Gas Tidal Volume 600.0 Blood Gas Inspiratory Pressure 23.0 Blood Gas Critical Value Read Back Nelli PULIDO RN Blood Gas Notified Whom MG Blood Gas Notified Time 10/13/2016 2:35:49 AM Bedside Glucose 155 137 White Blood Count 9.0 # Red Blood Count 4.69 L Hemoglobin 12.6 L Hematocrit 40.5 L Mean Corpuscular Volume 86.4 Mean Corpuscular Hemoglobin 26.9 L Mean Corpuscular Hemoglobin Concent 31.1 L Red Cell Distribution Width 18.4 H Platelet Count 260 Mean Platelet Volume 10.5 H Neutrophils % 91.2 H Lymphocytes % 2.7 L Monocytes % 5.2 Eosinophils % 0.4 Basophils % 0.1 Nucleated Red Blood Cells % 0.0 Neutrophils # 8.2 H Lymphocytes # 0.2 L Monocytes # 0.5 Eosinophils # 0.0 Basophils # 0.0 Nucleated Red Blood Cells # 0.0 Prothrombin Time 16.4 H Prothrombin Time Ratio 1.3 INR International Normalized Ratio 1.31 Activated Partial Thromboplast Time 27.3 Sodium Level 149 H Potassium Level 2.8 *L Chloride Level 102 # Carbon Dioxide Level 27 # Anion Gap 23 H Blood Urea Nitrogen 25 H Creatinine 1.08 Glucose Level 180 Hemoglobin A1c 5.5 Calcium Level 9.1 Phosphorus Level 1.0 L Magnesium Level 1.4 L Creatine Kinase 333 H Creatine Kinase Index 2.7 Creatinine Kinase MB (Mass) 9.10 H Troponin I 0.055 Triglycerides Level 57 Cholesterol Level 131 LDL Cholesterol, Calculated 80 HDL Cholesterol 40 Cholesterol/HDL Ratio 3.2 Amylase Level 242 H Lipase 28 Test 10/13/16 05:00 10/13/16 06:03 10/13/16 07:10 10/13/16 07:47 Bedside Glucose 116 155 247 H Blood Gas Specimen Source Blood arterial Arterial Blood Date Drawn 10/13/2016 9:04:33 AM Arterial Blood pH (Temp corrected) 7.704 *H Arterial Blood pCO2 (Temp correct) 18.5 L Arterial Blood pO2 (Temp corrected) 78.7 L Arterial Blood HCO3 23.1 Arterial Blood Base Excess 3.9 H Arterial Blood Oxygen Saturation 97.5 Oleksandr Test ACCEPTAB Arterial Blood Gas Puncture Site Right Radial Arterial Blood Carboxyhemoglobin 0.6 Arterial Blood Methemoglobin 0.3 Blood Gas A-a O2 Differential 189.1 H Oxyhemoglobin Percent 96.6 Total Hemoglobin 13.9 Blood Gas Temperature 33.0 Blood Gas Respiration Rate 26.0 Blood Gas Actual Respiration Rate 26 Blood Gas Modality VENT - AC FiO2 40.0 Blood Gas Tidal Volume 600.0 Blood Gas Low PEEP Setting 0 Blood Gas Critical Value Read Back J ADAD RN Blood Gas Notified Whom JLD Blood Gas Notified Time 10/13/2016 9:16:32 AM Test 10/13/16 08:02 10/13/16 09:07 10/13/16 10:10 10/13/16 11:14 Bedside Glucose 142 188 222 H 190 Test 10/13/16 12:28 10/13/16 12:30 10/13/16 13:25 Bedside Glucose 175 144 White Blood Count 12.4 #H Red Blood Count 4.60 L Hemoglobin 12.5 L Hematocrit 40.4 L Mean Corpuscular Volume 87.8 Mean Corpuscular Hemoglobin 27.2 L Mean Corpuscular Hemoglobin Concent 30.9 L Red Cell Distribution Width 18.5 H Platelet Count 250 Mean Platelet Volume 9.9 Neutrophils % 94.0 H Lymphocytes % 1.9 L Monocytes % 3.0 Eosinophils % 0.5 Basophils % 0.2 Nucleated Red Blood Cells % 0.0 Neutrophils # 11.7 H Lymphocytes # 0.2 L Monocytes # 0.4 Eosinophils # 0.1 Basophils # 0.0 Nucleated Red Blood Cells # 0.0 Prothrombin Time 16.9 H Prothrombin Time Ratio 1.3 INR International Normalized Ratio 1.37 Activated Partial Thromboplast Time 28.0 Calcium Level 8.2 L Phosphorus Level 3.8 # Magnesium Level 1.8 Creatine Kinase 337 H Creatine Kinase Index 2.4 Creatinine Kinase MB (Mass) 8.21 H Troponin I 0.041 Amylase Level 205 H Lipase 14 L Medications Medications Current Medications Sodium Chloride (NS) 1,000 ml @ 100 mls/hr Q10H IV Last administered on 15:44; Admin Dose 100 MLS/HR; Start 10/12/16 at 13:47 Acetaminophen (Tylenol Supp) 650 mg Q4H PRN [place] TEMP > 37C; Start 10/12/16 at 14: 00 Acetaminophen (Tylenol Liquid) 650 mg Q4H PRN PO TEMP > 37C; Start 10/12/16 at 14:00 Acetaminophen (Tylenol Supp) 500 mg Q6H [place] ; Start 10/13/16 at 14:00 Acetaminophen (Tylenol Liquid) 500 mg Q6H PO ; Start 10/13/16 at 14:00 Meperidine HCl (Demerol) 12.5 mg Q4H PRN IV POST OPERATIVE SHIVERING; Start 10/12/16 at 14:00 Meperidine HCl (Demerol) 25 mg Q4H PRN IV POST OPERATIVE SHIVERING; Start at 14:00 Eye Lubricant (Akwa Oint) 1 applic Q6 BOTH EYES Last administered on 10/13/16 12:14; Admin Dose 1 APPLIC; Start 10/12/16 at 18:00 Eye Lubricant (Artificial Tears Oph) 2 drop Q6 BOTH EYES Last administered on 12:14; Admin Dose 2 DROP; Start 10/12/16 at 18:00 Diagnostic Test (Pha) (Accu-Chek) 1 ea Q1H XX Last administered on 10/13/16 13: 26; Admin Dose 1 EA; Start 10/12/16 at 14:00 Dextrose (D50w Syringe) 25 ml Q15M PRN IV Till BS 80 mg/dL or above x2; Start 10/12/16 at 14:00 Dextrose 50 ml 50 ml Q15M PRN IV Till BS 80 mg/dL or above x2; Start 10/12/16 at 14:00 Piperacillin Sod/ Tazobactam Sod 100 ml @ 200 mls/hr Q6 IVPB Last administered on 10/13/16 12:24; Admin Dose 200 MLS/HR; Start 10/12/16 at 19:00 Dopamine HCl/ Dextrose 250 ml @ 6.75 mls/hr TITRATE IV Last administered on 03:50; Admin Dose 16.875 MLS/HR; Start 10/12/16 at 17:00 Ondansetron HCl (Zofran Inj) 4 mg Q6H PRN IV NAUSEA AND/OR VOMITING; Start 10/12 at 16:30 Pantoprazole (Protonix Iv) 40 mg DAILY@06 IV Last administered on 10/13/16 05: 31; Admin Dose 40 MG; Start 10/13/16 at 06:00 Furosemide 20 mg 20 mg DAILY IV Last administered on 10/12/16 21:31; Admin Dose 20 MG; Start 10/12/16 at 21:00 Dextrose/Sodium Chloride 1,000 ml @ 75 mls/hr [id number] IV Last administered on 10/13/16 04:55; Admin Dose 75 MLS/HR; Start 10/13/16 at 05:00 Magnesium Sulfate 100 ml @ 25 mls/hr ONCE IVPB Last administered on 10/13/16 10:44; Admin Dose 25 MLS/HR; Start 10/13/16 at 11:30; Stop 10/13/16 at 15:29 Potassium Phosphate/Sodium Chloride (K Phos (Meq)/NS) 254.5455 ml @ 63.636 m... ONCE ONCE IVPB ; Start 10/13/16 at 12:30; Stop 10/13/16 at 16:29 TIFFANIE WILSON October 13, 2016 13:54
--- NOTE | 2016-10-13 13:58 | CONS ---
DATE OF ADMISSION: 10/12/2016 DATE OF CONSULTATION: 10/13/2016 PALLIATIVE CARE CONSULTATION HISTORY OF PRESENT ILLNESS: This is a 51-year-old gentleman who is well known to me from prior hosp italization who presented to [facility] ____ cardiac arrest. It is not known how long this gentleman was down. He was at a rehab facility and apparently was found down. The patient was brought to the emergency room at [facility], ACLS protocol was begun. He was started off on hypothermia protocol thereafter and was admitted to the intensive care unit. Unfort unately, a CT scan of his head showed findings suggestive of mild cerebral edema compatible with ano xic brain injury. Please refer to more detailed dictation and findings. The patient is intubated a t this time in the ICU, still undergoing hypothermia protocol. My prior involvement with this gentle man was related to this patient being seriously ill in critical care unit at [facility]. I will review my old medical records as to the details of that hospitalization. There are no family members available at this time. I understand there is a family member, a sister, who has ca lled to find out about her brother's ongoing condition and care. I have asked nursing staff to sche dule an appointment for me to talk with her tomorrow. More detailed palliative care notes will be do ne at that time. Dictated By: DESIREE MIRANDA MD, LP/NTS Conf#: [id number] DID#: [id number]
[2016-10-13] MEDS: ACETAMINOPHEN 650MG/20.3ML CUP PO SCH ×3 (14:00→22:55)
[2016-10-13 15:12] LABS: ALBUMIN 3.4 g/dl (3.3-4.9)
[2016-10-13 15:14] LABS: BILIRUBIN,INDIRECT 1.3 mg/dl (0-1.1); BILIRUBIN,TOTAL 1.3 mg/dl (0.2-1.3); CREATININE 1.18 mg/dl (0.61-1.24)
[2016-10-13 15:15] LABS: ALBUMIN/GLOBULIN RATIO 0.87; TOTAL PROTEIN 7.3 g/dl (6.1-8.1)
[2016-10-13 15:16] LABS: CALCIUM 8.2 mg/dl (8.4-10.2)
[2016-10-13 15:22] LABS: POTASSIUM 2.5 mmol/L (3.5-5.1)
[2016-10-13] MEDS ORDERED: SOD CHLORIDE 0.9% 1,000 ML IV ONE ×2 (15:30→17:30)
[2016-10-13] MEDS ORDERED: POTASSIUM CHLORIDE 50 ML IVPB ONE (15:30)
[2016-10-13] MEDS: ACETAMINOPHEN 650 MG SUPP PR SCH ×2 (15:30→20:18)
[2016-10-13] MEDS: PROPOFOL 100 ML IV SCH (16:52)
[2016-10-13 16:57] LABS: BARBITURATES NEGATIVE (NEGATIVE); BENZODIAZEPINES NEGATIVE (NEGATIVE); CANNABINOIDS POSITIVE (NEGATIVE); COCAINE NEGATIVE (NEGATIVE); OPIATES NEGATIVE (NEGATIVE)
[2016-10-13 18:15] LABS: ADD SCAN DIFF NO
[2016-10-13 18:18] LABS: ABNORMAL IP MESSAGE 1; HEMOGLOBIN 12.3 g/dl (14.0-18.0); MEAN CORPUSCULAR HGB CONC 31.5 g/dl (32.0-37.0); MEAN CORPUSCULAR VOLUME 88.8 fl (82.0-101.0); MEAN PLATELET VOLUME 9.8 fl (7.4-10.4); PLATELET COUNT 238 10^3/UL (140-415); RED BLOOD COUNT 4.39 10^6/ul (4.70-6.10); RED CELL DISTRIBUTION WIDTH 18.6 % (11.5-14.5); WHITE BLOOD COUNT 12.4 10^3/ul (4.8-10.8)
[2016-10-13 18:33] LABS: INR 1.28; PARTIAL THROMBOPLASTIN TIME 28.5 Sec (25.0-35.0); PROTIME 16.1 Sec (12.2-14.2); PT RATIO 1.3
[2016-10-13 18:36] LABS: PHOSPHORUS 4.6 mg/dl (2.5-4.9); POTASSIUM 3.1 mmol/L (3.5-5.1)
[2016-10-13 18:37] LABS: CALCIUM 7.5 mg/dl (8.4-10.2); MAGNESIUM 2.7 mg/dl (1.7-2.5)
[2016-10-13 18:38] LABS: ALBUMIN/GLOBULIN RATIO 0.88; CREATININE 1.22 mg/dl (0.61-1.24); TOTAL PROTEIN 6.4 g/dl (6.1-8.1)
[2016-10-13 18:39] LABS: CALCIUM 7.6 mg/dl (8.4-10.2)
[2016-10-13 18:49] LABS: TROPONIN-I 0.041 ng/ml (0.00-0.12)
[2016-10-13 18:59] LABS: LYMPHOCYTES # 0.5 10^3/ul (0.8-2.9); MONOCYTE # 0.7 10^3/ul (0.3-0.9); NEUTROPHIL # 6.6 10^3/ul (1.6-7.5)
[2016-10-13 19:00] LABS: PLATELET ESTIMATE PLT APPEAR ADEQUATE
[2016-10-13] MEDS ORDERED: VECURONIUM 100 MG in DEXTROSE 5% 100 ML IV SCH (19:30)
[2016-10-14] VITALS (73 sets, daily range): BP systolic 83–107; BP diastolic 62–87; PULSE 74–93; RESP 16–29
[2016-10-14] MEDS: ARTIFICIAL TEARS 15 ML OPH BOTH EYES SCH ×5 (00:11→23:53)
[2016-10-14] MEDS: ACCU-CHEK XX SCH ×10 (00:11→09:55)
[2016-10-14] MEDS: OCULAR LUBRICANT 3.5 GM OPH OINT BOTH EYES SCH ×5 (00:11→23:53)
[2016-10-14] MEDS: PIPER-TAZO 3.375 GM IV (PMX) 100 ML IVPB SCH ×5 (00:14→23:53)
[2016-10-14 00:44] LABS: AADO2 Arterial 140.9 mmHg (7.0-24.0); Allen Test ACCEPTAB; Arterial Base Excess -2.4 mmol/L (-3.0-3); Arterial COHb 0.8 % (0.0-3.0); Arterial Fraction of Oxyhgb 95.9 % (93.0-99.0); Arterial HCO3 23.9 mmol/L (22.0-26.0); Arterial MetHb 0.1 % (0.0-1.5); Arterial Total Hemglobin 12.3 g/dl (12.0-18.0); MODE VENT - AC
[2016-10-14 00:57] LABS: ADD SCAN DIFF NO
[2016-10-14 01:06] LABS: ABNORMAL IP MESSAGE 1; BASOPHILS % 0.1 % (0.0-2.0); EOSINOPHILS # 0.1 10^3/ul (0.0-0.5); EOSINOPHILS % 0.9 % (0.0-7.0); HEMATOCRIT 38.2 % (42.0-52.0); HEMOGLOBIN 11.6 g/dl (14.0-18.0); LYMPHOCYTES # 0.3 10^3/ul (0.8-2.9); LYMPHOCYTES % 1.9 % (15.0-51.0); MEAN CORPUSCULAR HEMOGLOBIN 27.6 pg (29.0-33.0); MEAN CORPUSCULAR HGB CONC 30.4 g/dl (32.0-37.0); MEAN CORPUSCULAR VOLUME 90.7 fl (82.0-101.0); MEAN PLATELET VOLUME 10.7 fl (7.4-10.4); MONOCYTE # 0.6 10^3/ul (0.3-0.9); MONOCYTES % 4.2 % (0.0-11.0); NEUTROPHIL # 12.4 10^3/ul (1.6-7.5); NEUTROPHILS % 92.5 % (39.0-77.0); PLATELET COUNT 220 10^3/UL (140-415); RED BLOOD COUNT 4.21 10^6/ul (4.70-6.10); RED CELL DISTRIBUTION WIDTH 19.4 % (11.5-14.5); WHITE BLOOD COUNT 13.4 10^3/ul (4.8-10.8)
[2016-10-14 01:28] LABS: INR 1.24; PARTIAL THROMBOPLASTIN TIME 28.8 Sec (25.0-35.0); PROTIME 15.7 Sec (12.2-14.2); PT RATIO 1.2
[2016-10-14 01:34] LABS: ALBUMIN 3.1 g/dl (3.3-4.9); ALBUMIN/GLOBULIN RATIO 0.91; BILIRUBIN,INDIRECT 0.7 mg/dl (0-1.1); BILIRUBIN,TOTAL 0.7 mg/dl (0.2-1.3); CALCIUM 7.4 mg/dl (8.4-10.2); CREATININE 1.49 mg/dl (0.61-1.24); POTASSIUM 3.5 mmol/L (3.5-5.1); TOTAL PROTEIN 6.5 g/dl (6.1-8.1)
[2016-10-14 01:35] LABS: AMYLASE 164 U/L (11-123); CALCIUM 7.4 mg/dl (8.4-10.2); MAGNESIUM 2.4 mg/dl (1.7-2.5); PHOSPHORUS 6.3 mg/dl (2.5-4.9)
[2016-10-14 01:46] LABS: TROPONIN-I 0.046 ng/ml (0.00-0.12)
[2016-10-14] MEDS: ACETAMINOPHEN 650MG/20.3ML CUP PO SCH ×4 (02:00→20:00)
[2016-10-14] MEDS: DEXTROSE 5%-0.45% NACL 1,000 ML IV SCH ×5 (02:44→22:15)
[2016-10-14] MEDS: ACETAMINOPHEN 650 MG SUPP PR SCH ×4 (02:56→20:00)
[2016-10-14 05:22] LABS: ADD SCAN DIFF NO
[2016-10-14 05:27] LABS: ABNORMAL IP MESSAGE 1; BASOPHILS % 0.1 % (0.0-2.0); EOSINOPHILS # 0.3 10^3/ul (0.0-0.5); EOSINOPHILS % 1.8 % (0.0-7.0); HEMATOCRIT 39.2 % (42.0-52.0); HEMOGLOBIN 11.9 g/dl (14.0-18.0); LYMPHOCYTES # 0.3 10^3/ul (0.8-2.9); LYMPHOCYTES % 2.1 % (15.0-51.0); MEAN CORPUSCULAR HEMOGLOBIN 27.4 pg (29.0-33.0); MEAN CORPUSCULAR HGB CONC 30.4 g/dl (32.0-37.0); MEAN CORPUSCULAR VOLUME 90.1 fl (82.0-101.0); MEAN PLATELET VOLUME 10.1 fl (7.4-10.4); MONOCYTE # 0.6 10^3/ul (0.3-0.9); MONOCYTES % 3.5 % (0.0-11.0); NEUTROPHIL # 14.6 10^3/ul (1.6-7.5); NEUTROPHILS % 92.1 % (39.0-77.0); PLATELET COUNT 236 10^3/UL (140-415); RED BLOOD COUNT 4.35 10^6/ul (4.70-6.10); RED CELL DISTRIBUTION WIDTH 19.4 % (11.5-14.5); WHITE BLOOD COUNT 15.9 10^3/ul (4.8-10.8)
[2016-10-14] MEDS: PANTOPRAZOLE 40 MG INJ IV SCH (05:35)
[2016-10-14 05:49] LABS: INR 1.25; PROTIME 15.8 Sec (12.2-14.2); PT RATIO 1.2
[2016-10-14 05:50] LABS: PARTIAL THROMBOPLASTIN TIME 31.1 Sec (25.0-35.0)
[2016-10-14 05:52] LABS: BILIRUBIN,INDIRECT 0.7 mg/dl (0-1.1); BILIRUBIN,TOTAL 0.7 mg/dl (0.2-1.3); CALCIUM 7.5 mg/dl (8.4-10.2); CREATININE 1.72 mg/dl (0.61-1.24); POTASSIUM 3.6 mmol/L (3.5-5.1)
[2016-10-14 05:53] LABS: ALBUMIN 3.2 g/dl (3.3-4.9); ALBUMIN/GLOBULIN RATIO 0.84
[2016-10-14 05:54] LABS: AMYLASE 119 U/L (11-123); CALCIUM 7.5 mg/dl (8.4-10.2); MAGNESIUM 2.2 mg/dl (1.7-2.5); PHOSPHORUS 6.7 mg/dl (2.5-4.9)
[2016-10-14 06:04] LABS: TROPONIN-I 0.064 ng/ml (0.00-0.12)
--- NOTE | 2016-10-14 06:39 | RADRPT ---
PROCEDURE: XR Chest. CLINICAL INDICATION: Respiratory failure TECHNIQUE: A single AP view of the chest was obtained. COMPARISON: Chest x-ray dated 10/13/2016 FINDINGS: The endotracheal tube tip is approximately 4.0 cm above the kandis. The tip of the enteric tube ex tends below the left diaphragm. There are ill-defined bilateral interstitial opacities. No focal airspace opacification, pleural ef fusion or pneumothorax is seen. The cardiomediastinal silhouette is mildly enlarged. The osseous s tructures are unremarkable. IMPRESSION: 1. Mild interstitial edema, improved when compared to the prior examination. 2. Mild cardiomegaly. 3. Tubes and lines, as described above. RPTAT: HH .Estelita Malagon MD, MD Date Time Electronically viewed and signed by .Estelita Malagon MD, on 10/14/2016 06:38 .G/
[2016-10-14] MEDS: FUROSEMIDE 20 MG INJ IV SCH (08:01)
[2016-10-14 08:07] LABS: AADO2 Arterial 80.8 mmHg (7.0-24.0); Allen Test ACCEPTAB; Arterial Base Excess -2.7 mmol/L (-3.0-3); Arterial COHb 0.7 % (0.0-3.0); Arterial Fraction of Oxyhgb 97.4 % (93.0-99.0); Arterial HCO3 23.8 mmol/L (22.0-26.0); Arterial MetHb 0.1 % (0.0-1.5); Arterial Total Hemglobin 12.6 g/dl (12.0-18.0); MODE VENT - AC
[2016-10-14 09:58] LABS: AADO2 Arterial 127.1 mmHg (7.0-24.0); Allen Test ACCEPTAB; Arterial Base Excess -0.4 mmol/L (-3.0-3); Arterial COHb 0.8 % (0.0-3.0); Arterial Fraction of Oxyhgb 97.1 % (93.0-99.0); Arterial HCO3 24.9 mmol/L (22.0-26.0); Arterial MetHb 0.1 % (0.0-1.5); Arterial Total Hemglobin 13.3 g/dl (12.0-18.0); MODE VENT - AC
[2016-10-14] MEDS ORDERED: HYPOGLYCEMIA PROTOCOL when Glucose is <70 mg/dL or symptomatic <90 mg/dL. XX ONE (10:00)
[2016-10-14] MEDS ORDERED: Discontinue Glyburide, Glipizide, and/or Glimepiride prior to starting Insulin XX ONE (10:00)
--- NOTE | 2016-10-14 10:15 | RADRPT ---
Vent Rate: 68 bpm RR Interval: 0 msec ID Interval: 188 msec QRS Duration: 112 msec QT Interval: 440 msec QTC Interval: 467 msec P-R-T Irene: 62 - -67 - 26 degrees Normal sinus rhythm Left axis deviation Incomplete right bundle branch block left anterior fascicular block Nonspecific T wave abnormality Prolonged QT Abnormal ECG Electronically Signed By: Augustine Dia [id number]
--- NOTE | 2016-10-14 10:16 | RADRPT ---
Vent Rate: 85 bpm RR Interval: 0 msec UT Interval: 178 msec QRS Duration: 98 msec QT Interval: 388 msec QTC Interval: 461 msec P-R-T [place]: 53 - -73 - 47 degrees Normal sinus rhythm Left axis deviation Incomplete right bundle branch block Anteroseptal infarct , age undetermined Abnormal ECG Electronically Signed By: Augustine Dia [id number]
[2016-10-14 10:31] LABS: AADO2 Arterial 127.1 mmHg (7.0-24.0); Allen Test ACCEPTAB; Arterial Base Excess -0.4 mmol/L (-3.0-3); Arterial COHb 0.8 % (0.0-3.0); Arterial Fraction of Oxyhgb 97.1 % (93.0-99.0); Arterial HCO3 24.9 mmol/L (22.0-26.0); Arterial MetHb 0.1 % (0.0-1.5); Arterial Total Hemglobin 13.3 g/dl (12.0-18.0); MODE VENT - AC
[2016-10-14 10:40] LABS: AADO2 Arterial 127.1 mmHg (7.0-24.0); Allen Test ACCEPTAB; Arterial Base Excess -0.4 mmol/L (-3.0-3); Arterial COHb 0.8 % (0.0-3.0); Arterial Fraction of Oxyhgb 97.1 % (93.0-99.0); Arterial HCO3 24.9 mmol/L (22.0-26.0); Arterial MetHb 0.1 % (0.0-1.5); Arterial Total Hemglobin 13.3 g/dl (12.0-18.0); MODE VENT - AC
--- NOTE | 2016-10-14 10:49 | CONS ---
Date/Time of Note Date/Time of Note DATE: 10/14/16 TIME: 10:48 Consult Date/Type/Reason Admit Date/Time October 12, 2016 at 16:30 Type of Consultation: pulmonary ICU Subjective Patient now coming off hypothermia protocol, he is being rewarmed. Remains intubated on mechanical ventilation Pupils fixed and unreactive Objective Vital Signs Date Time Temp Pulse Resp B/P Pulse Ox O2 Delivery O2 Flow Rate FiO2 10/14/16 08:00 98.0 87 16 83/67 100 10/14/16 08:00 40 10/14/16 07:30 Mechanical Ventilator Intake and Output 10/13/16 10/13/16 10/14/16 15:00 23:00 07:00 Intake Total 1001.875 ml 2949.36 ml 1087.05 ml Output Total 1659 ml 17 ml 90 ml Balance -657.125 ml 2932.36 ml 997.05 ml Exam PHYSICAL EXAMINATION: GENERAL: Elderly-appearing gentleman, intubated on mechanical ventilation. VITAL SIGNS: As above HEENT: Pupils are nonreactive CARDIAC: S1, S2, no added sounds or murmurs. CHEST: Diminished air entry bilaterally. ABDOMEN: Soft, nontender. No guarding or rebound. EXTREMITIES: No cyanosis, clubbing, edema. NEUROLOGIC: Unable to assess. Results/Medications Result Diagram: 10/14/16 0515 10/14/16 0515 Results 24 hrs Laboratory Tests Test 10/13/16 11:14 10/13/16 12:28 10/13/16 12:30 10/13/16 13:25 Bedside Glucose 190 175 144 White Blood Count 12.4 #H Red Blood Count 4.60 L Hemoglobin 12.5 L Hematocrit 40.4 L Mean Corpuscular Volume 87.8 Mean Corpuscular Hemoglobin 27.2 L Mean Corpuscular Hemoglobin Concent 30.9 L Red Cell Distribution Width 18.5 H Platelet Count 250 Mean Platelet Volume 9.9 Neutrophils % 94.0 H Lymphocytes % 1.9 L Monocytes % 3.0 Eosinophils % 0.5 Basophils % 0.2 Nucleated Red Blood Cells % 0.0 Neutrophils # 11.7 H Lymphocytes # 0.2 L Monocytes # 0.4 Eosinophils # 0.1 Basophils # 0.0 Nucleated Red Blood Cells # 0.0 Prothrombin Time 16.9 H Prothrombin Time Ratio 1.3 INR International Normalized Ratio 1.37 Activated Partial Thromboplast Time 28.0 Fibrinogen 401.0 Sodium Level 145 H Potassium Level 2.5 *L Chloride Level 103 Carbon Dioxide Level 27 Anion Gap 18 H Blood Urea Nitrogen 25 H Creatinine 1.18 Glucose Level 177 Calcium Level 8.2 L Phosphorus Level 3.8 # Magnesium Level 1.8 Total Bilirubin 1.3 Direct Bilirubin 0.00 Indirect Bilirubin 1.3 H Aspartate Amino Transf (AST/SGOT) 56 #H Alanine Aminotransferase (ALT/SGPT) 36 Alkaline Phosphatase 74 Creatine Kinase 337 H Creatine Kinase Index 2.4 Creatinine Kinase MB (Mass) 8.21 H Troponin I 0.041 Total Protein 7.3 Albumin 3.4 Globulin 3.90 H Albumin/Globulin Ratio 0.87 Amylase Level 205 H Lipase 14 L Test 10/13/16 14:30 10/13/16 15:10 10/13/16 17:07 10/13/16 17:58 Urine Opiates Screen NEGATIVE Urine Barbiturates NEGATIVE Urine Amphetamines Screen NEGATIVE Urine Benzodiazepines Screen NEGATIVE Urine Cocaine Screen NEGATIVE Urine Cannabinoids POSITIVE Bedside Glucose 132 86 116 Test 10/13/16 18:00 10/13/16 18:58 10/13/16 19:47 10/13/16 20:12 White Blood Count 12.4 H Red Blood Count 4.39 L Hemoglobin 12.3 L Hematocrit 39.0 L Mean Corpuscular Volume 88.8 Mean Corpuscular Hemoglobin 28.0 L Mean Corpuscular Hemoglobin Concent 31.5 L Red Cell Distribution Width 18.6 H Platelet Count 238 Mean Platelet Volume 9.8 Neutrophils % 53.0 Band Neutrophils % 37.0 H Lymphocytes % 4.0 L Monocytes % 6.0 Eosinophils % Neutrophils # 6.6 Lymphocytes # 0.5 L Monocytes # 0.7 Eosinophils # Platelet Estimate PLT APPEAR ADEQUATE Prothrombin Time 16.1 H Prothrombin Time Ratio 1.3 INR International Normalized Ratio 1.28 Activated Partial Thromboplast Time 28.5 Fibrinogen 389.0 Sodium Level 144 Potassium Level 3.1 L Chloride Level 103 Carbon Dioxide Level 27 Anion Gap 17 H Blood Urea Nitrogen 27 H Creatinine 1.22 Glucose Level 121 # Calcium Level 7.6 L Phosphorus Level 4.6 Magnesium Level 2.7 H Total Bilirubin 1.0 Direct Bilirubin 0.00 Indirect Bilirubin 1.0 Aspartate Amino Transf (AST/SGOT) 49 H Alanine Aminotransferase (ALT/SGPT) 32 Alkaline Phosphatase 64 Troponin I 0.041 Total Protein 6.4 Albumin 3.0 L Globulin 3.40 H Albumin/Globulin Ratio 0.88 Amylase Level 175 H Lipase 25 Bedside Glucose 87 115 Blood Gas Specimen Source Blood arterial Arterial Blood Date Drawn 10/14/2016 12:30:35 AM Arterial Blood pH (Temp corrected) 7.347 L Arterial Blood pCO2 (Temp correct) 43.7 Arterial Blood pO2 (Temp corrected) 95.9 Arterial Blood HCO3 23.9 Arterial Blood Base Excess -2.4 Arterial Blood Oxygen Saturation 96.8 Oleksandr Test ACCEPTAB Arterial Blood Gas Puncture Site Right Brachial Arterial Blood Carboxyhemoglobin 0.8 Arterial Blood Methemoglobin 0.1 Blood Gas A-a O2 Differential 140.9 H Oxyhemoglobin Percent 95.9 Total Hemoglobin 12.3 Blood Gas Temperature 35.1 Blood Gas Respiration Rate 16.0 Blood Gas Actual Respiration Rate 16 Blood Gas Modality VENT - AC FiO2 40.0 Blood Gas Tidal Volume 500.0 Blood Gas High PEEP Setting 5.0 Blood Gas Notified Whom T KASSAII Blood Gas Notified Time 10/14/2016 12:43:34 AM Test 10/13/16 21:06 10/13/16 22:05 10/13/16 23:03 10/14/16 00:10 Bedside Glucose 122 133 125 133 Test 10/14/16 00:34 10/14/16 01:11 10/14/16 02:16 10/14/16 03:14 White Blood Count 13.4 H Red Blood Count 4.21 L Hemoglobin 11.6 L Hematocrit 38.2 L Mean Corpuscular Volume 90.7 Mean Corpuscular Hemoglobin 27.6 L Mean Corpuscular Hemoglobin Concent 30.4 L Red Cell Distribution Width 19.4 H Platelet Count 220 Mean Platelet Volume 10.7 H Neutrophils % 92.5 H Lymphocytes % 1.9 L Monocytes % 4.2 Eosinophils % 0.9 Basophils % 0.1 Nucleated Red Blood Cells % 0.0 Neutrophils # 12.4 H Lymphocytes # 0.3 L Monocytes # 0.6 Eosinophils # 0.1 Basophils # 0.0 Nucleated Red Blood Cells # 0.0 Prothrombin Time 15.7 H Prothrombin Time Ratio 1.2 INR International Normalized Ratio 1.24 Activated Partial Thromboplast Time 28.8 Fibrinogen 386.0 Sodium Level 142 Potassium Level 3.5 Chloride Level 105 Carbon Dioxide Level 27 Anion Gap 14 Blood Urea Nitrogen 27 H Creatinine 1.49 H Glucose Level 145 Calcium Level 7.4 L Phosphorus Level 6.3 H Magnesium Level 2.4 Total Bilirubin 0.7 Direct Bilirubin 0.00 Indirect Bilirubin 0.7 Aspartate Amino Transf (AST/SGOT) 55 H Alanine Aminotransferase (ALT/SGPT) 37 Alkaline Phosphatase 67 Troponin I 0.046 Total Protein 6.5 Albumin 3.1 L Globulin 3.40 H Albumin/Globulin Ratio 0.91 Amylase Level 164 H Lipase < 10 L Bedside Glucose 130 134 126 Test 10/14/16 04:04 10/14/16 05:10 10/14/16 05:15 10/14/16 06:11 Bedside Glucose 127 123 101 White Blood Count 15.9 H Red Blood Count 4.35 L Hemoglobin 11.9 L Hematocrit 39.2 L Mean Corpuscular Volume 90.1 Mean Corpuscular Hemoglobin 27.4 L Mean Corpuscular Hemoglobin Concent 30.4 L Red Cell Distribution Width 19.4 H Platelet Count 236 Mean Platelet Volume 10.1 Neutrophils % 92.1 H Lymphocytes % 2.1 L Monocytes % 3.5 Eosinophils % 1.8 Basophils % 0.1 Nucleated Red Blood Cells % 0.0 Neutrophils # 14.6 H Lymphocytes # 0.3 L Monocytes # 0.6 Eosinophils # 0.3 Basophils # 0.0 Nucleated Red Blood Cells # 0.0 Prothrombin Time 15.8 H Prothrombin Time Ratio 1.2 INR International Normalized Ratio 1.25 Activated Partial Thromboplast Time 31.1 Fibrinogen 431.0 # Sodium Level 142 Potassium Level 3.6 Chloride Level 106 Carbon Dioxide Level 26 Anion Gap 14 Blood Urea Nitrogen 28 H Creatinine 1.72 H Glucose Level 128 Calcium Level 7.5 L Phosphorus Level 6.7 H Magnesium Level 2.2 Total Bilirubin 0.7 Direct Bilirubin 0.00 Indirect Bilirubin 0.7 Aspartate Amino Transf (AST/SGOT) 54 H Alanine Aminotransferase (ALT/SGPT) 38 Alkaline Phosphatase 61 Troponin I 0.064 Total Protein 7.0 Albumin 3.2 L Globulin 3.80 H Albumin/Globulin Ratio 0.84 Amylase Level 119 Lipase < 10 L Test 10/14/16 07:00 10/14/16 07:03 10/14/16 07:45 10/14/16 09:44 Blood Gas Specimen Source Blood arterial Arterial Blood Date Drawn 10/14/2016 7:16:30 AM Arterial Blood pH (Temp corrected) 7.312 L Arterial Blood pCO2 (Temp correct) 48.2 H Arterial Blood pO2 (Temp corrected) 149.0 H Arterial Blood HCO3 23.8 Arterial Blood Base Excess -2.7 Arterial Blood Oxygen Saturation 98.2 H Oleksandr Test ACCEPTAB Arterial Blood Gas Puncture Site Right Radial Arterial Blood Carboxyhemoglobin 0.7 Arterial Blood Methemoglobin 0.1 Blood Gas A-a O2 Differential 80.8 H Oxyhemoglobin Percent 97.4 Total Hemoglobin 12.6 Blood Gas Temperature 37.0 Blood Gas Respiration Rate 16.0 Blood Gas Actual Respiration Rate 16 Blood Gas Modality VENT - AC FiO2 40.0 Blood Gas Tidal Volume 500.0 Blood Gas Low PEEP Setting 5.0 Blood Gas Notified Whom JLD Blood Gas Notified Time 10/14/2016 8:07:06 AM Bedside Glucose 106 105 139 Test 10/14/16 10:37 Blood Gas Specimen Source Blood arterial Arterial Blood Date Drawn 10/13/2016 2:50:00 PM Arterial Blood pH (Temp corrected) 7.433 Arterial Blood pCO2 (Temp correct) 36.7 Arterial Blood pO2 (Temp corrected) 119.5 H Arterial Blood HCO3 24.9 Arterial Blood Base Excess -0.4 Arterial Blood Oxygen Saturation 98.0 Oleksandr Test ACCEPTAB Arterial Blood Gas Puncture Site Right Radial Arterial Blood Carboxyhemoglobin 0.8 Arterial Blood Methemoglobin 0.1 Blood Gas A-a O2 Differential 127.1 H Oxyhemoglobin Percent 97.1 Total Hemoglobin 13.3 Blood Gas Temperature 33.2 Blood Gas Respiration Rate 16.0 Blood Gas Actual Respiration Rate 21 Blood Gas Modality VENT - AC FiO2 40.0 Blood Gas Tidal Volume 550.0 Blood Gas Low PEEP Setting 5.0 Blood Gas Notified Whom JLD Blood Gas Notified Time 10/13/2016 3:04:00 PM Medications Current Medications Acetaminophen (Tylenol Supp) 650 mg Q4H PRN [place] TEMP > 37C; Start 10/12/16 at 14: 00 Acetaminophen (Tylenol Liquid) 650 mg Q4H PRN PO TEMP > 37C; Start 10/12/16 at 14:00 Acetaminophen (Tylenol Supp) 500 mg Q6H [place] Last administered on 10/14/16 02:56 ; Admin Dose 500 MG; Start 10/13/16 at 14:00 Acetaminophen (Tylenol Liquid) 500 mg Q6H PO Last administered on 10/13/16 22: 55; Admin Dose 500 MG; Start 10/13/16 at 14:00 Meperidine HCl (Demerol) 12.5 mg Q4H PRN IV POST OPERATIVE SHIVERING; Start 10/12/16 at 14:00 Meperidine HCl (Demerol) 25 mg Q4H PRN IV POST OPERATIVE SHIVERING; Start at 14:00 Eye Lubricant (Akwa Oint) 1 applic Q6 BOTH EYES Last administered on 10/14/16 05:35; Admin Dose 1 APPLIC; Start 10/12/16 at 18:00 Eye Lubricant 2 drop 2 drop Q6 BOTH EYES Last administered on 10/14/16 05:35; Admin Dose 2 DROP; Start 10/12/16 at 18:00 Piperacillin Sod/ Tazobactam Sod 100 ml @ 200 mls/hr Q6 IVPB Last administered on 10/14/16 05:36; Admin Dose 200 MLS/HR; Start 10/12/16 at 19:00 Dopamine HCl/ Dextrose 250 ml @ 6.75 mls/hr TITRATE IV Last administered on 03:50; Admin Dose 16.875 MLS/HR; Start 10/12/16 at 17:00 Ondansetron HCl (Zofran Inj) 4 mg Q6H PRN IV NAUSEA AND/OR VOMITING; Start 10/12 at 16:30 Pantoprazole (Protonix Iv) 40 mg DAILY@06 IV Last administered on 10/14/16 05: 35; Admin Dose 40 MG; Start 10/13/16 at 06:00 Furosemide 20 mg 20 mg DAILY IV Last administered on 10/12/16 21:31; Admin Dose 20 MG; Start 10/12/16 at 21:00 Dextrose/Sodium Chloride (D5-1/2ns) 1,000 ml @ 150 mls/hr Q6H40M IV Last administered on 10/14/16 02:44; Admin Dose 150 MLS/HR; Start 10/13/16 at 05:00 Insulin Aspart (Novolog Insulin Pen) NOVOLOG *MILD* ALGORITHM Q6 SC ; Start 03/23 at 12:00 Miscellaneous Information 1 ea NOTE XX ; Start 10/14/16 at 11:00 Glucose (Glutose) 15 gm Q15M PRN PO DECREASED GLUCOSE; Start 10/14/16 at 11:00 Glucose (Glutose) 22.5 gm Q15M PRN PO DECREASED GLUCOSE; Start 10/14/16 at 11: 00 Dextrose (D50w Syringe) 25 ml Q15M PRN IV DECREASED GLUCOSE; Start 10/14/16 at 11:00 Dextrose (D50w Syringe) 50 ml Q15M PRN IV DECREASED GLUCOSE; Start 10/14/16 at 11:00 Glucagon (Glucagen) 1 mg Q15M PRN IM DECREASED GLUCOSE; Start 10/14/16 at 11:00 Glucose (Glutose) 15 gm Q15M PRN BUCCAL DECREASED GLUCOSE; Start 10/14/16 at 11 :00 Assessment/Plan Chief Complaint/Hosp Course IMPRESSION AND PLAN: 1. Cardiopulmonary arrest. 2. Possible aspiration pneumonia. 3. Likely anoxic brain injury. 4. History of congestive heart failure and atrial fibrillation. Decreased ejection fraction 5. History of substance abuse PLAN: 1. Continue mechanical ventilation. Continue hypothermia protocol 2. Broad-spectrum antibiotics, for aspiration pneumonia 3. Decrease minute ventilation has respiratory alkalosis 4. Start tube feeding once off paralytics 5. take away worker to arrange family conference Disposition Continue ICU care Family conference today We'll consider EEG, currently not stable for apnea study because of vasopressor requirements Problems: TRUNG LORA MD, [facility] October 14, 2016 10:49
[2016-10-14] MEDS ORDERED: GLUCOSE GEL 15 GRAM TUBE BUCCAL PRN (11:00)
[2016-10-14] MEDS ORDERED: GLUCOSE GEL 15 GRAM TUBE PO PRN ×2 (11:00)
[2016-10-14] MEDS ORDERED: GLUCAGON 1 MG INJ IM PRN (11:00)
[2016-10-14] MEDS ORDERED: DEXTROSE 50% 50 ML SYRINGE IV PRN ×2 (11:00)
[2016-10-14] MEDS: INSULIN ASPART [NOVOLOG] 3 ML PEN SC SCH ×3 (12:13→23:54)
--- NOTE | 2016-10-14 13:19 | CONS ---
Date/Time of Note Date/Time of Note DATE: 10/14/16 TIME: 13:14 Assessment/Plan Assessment/Plan Chief Complaint/Hosp Course IMPRESSION: 1. Cardiac arrest, currently with a perfusing rhythm on dopamine very low dose 2. Cardiomyopathy with severely depressed left ventricular ejection fraction. 3. Congestive heart failure, systolic, acute on chronic. 4. Respiratory failure, status post intubation. 5. Encephalopathy. 6. Anemia. 7. Cerebral edema. 8. Initial acidosis, improving. 9. History of ventricular tachycardia. 10. History of substance abuse. 11.Encephalopathy REcc: -Tele -serial ecg's -Continue lasix and follow volume status closely -Continue abx's and f/u cx data -Follow MS closely Problems: Consultation Date/Type/Reason Admit Date/Time October 12, 2016 at 16:30 Initial Consult Date 10/12/2016 Type of Consultation: Cardiology Reason for Consultation cardiac arrest Referring Provider: TIFFANIE WILSON Exam/Review of Systems Vital Signs Vitals Vital Signs Date Time Temp Pulse Resp B/P Pulse Ox O2 Delivery O2 Flow Rate FiO2 10/14/16 12:00 93 16 106/87 100 10/14/16 11:30 97.8 10/14/16 08:00 40 10/14/16 07:30 Mechanical Ventilator Intake and Output 10/13/16 10/13/16 10/14/16 15:00 23:00 07:00 Intake Total 1001.875 ml 2949.36 ml 1087.05 ml Output Total 1659 ml 17 ml 95 ml Balance -657.125 ml 2932.36 ml 992.05 ml Exam Review of Systems: CONSTITUTIONAL: No fevers, chills. PULMONARY: No sob CARDIOVASCULAR: No chest pain/palpitations GASTROINTESTINAL: No nausea/vomiting. GENITOURINARY: No hematuria/dysuria. MUSCULOSKELETAL: No myagias/arthalgias. PSYCHIATRIC: The patient denies depression. NEUROLOGIC: No weakness Constitutional: other (encephalopathic) Psych: no complaints Head: normocephalic ENMT: mucosa pink and moist Neck: jvd (9 cm water), supple Respiratory: diminished breath sounds Cardiovascular: regular rate and rhythm Gastrointestinal: non-tender, soft Musculoskeletal: muscle tone (normal) Extremities: edema (none) Neurological: other (encephalopathic) Results Result Diagram: 10/14/1651410/14/16514 Results 24 hrs Laboratory Tests Test 10/13/16 13:25 10/13/16 14:30 10/13/16 15:10 10/13/16 17:07 Bedside Glucose 144 132 86 Urine Opiates Screen NEGATIVE Urine Barbiturates NEGATIVE Urine Amphetamines Screen NEGATIVE Urine Benzodiazepines Screen NEGATIVE Urine Cocaine Screen NEGATIVE Urine Cannabinoids POSITIVE Test 10/13/16 17:58 10/13/16 18:00 10/13/16 18:58 10/13/16 19:47 Bedside Glucose 116 87 White Blood Count 12.4 H Red Blood Count 4.39 L Hemoglobin 12.3 L Hematocrit 39.0 L Mean Corpuscular Volume 88.8 Mean Corpuscular Hemoglobin 28.0 L Mean Corpuscular Hemoglobin Concent 31.5 L Red Cell Distribution Width 18.6 H Platelet Count 238 Mean Platelet Volume 9.8 Neutrophils % 53.0 Band Neutrophils % 37.0 H Lymphocytes % 4.0 L Monocytes % 6.0 Eosinophils % Neutrophils # 6.6 Lymphocytes # 0.5 L Monocytes # 0.7 Eosinophils # Platelet Estimate PLT APPEAR ADEQUATE Prothrombin Time 16.1 H Prothrombin Time Ratio 1.3 INR International Normalized Ratio 1.28 Activated Partial Thromboplast Time 28.5 Fibrinogen 389.0 Sodium Level 144 Potassium Level 3.1 L Chloride Level 103 Carbon Dioxide Level 27 Anion Gap 17 H Blood Urea Nitrogen 27 H Creatinine 1.22 Glucose Level 121 # Calcium Level 7.6 L Phosphorus Level 4.6 Magnesium Level 2.7 H Total Bilirubin 1.0 Direct Bilirubin 0.00 Indirect Bilirubin 1.0 Aspartate Amino Transf (AST/SGOT) 49 H Alanine Aminotransferase (ALT/SGPT) 32 Alkaline Phosphatase 64 Troponin I 0.041 Total Protein 6.4 Albumin 3.0 L Globulin 3.40 H Albumin/Globulin Ratio 0.88 Amylase Level 175 H Lipase 25 Blood Gas Specimen Source Blood arterial Arterial Blood Date Drawn 10/14/2016 12:30:35 AM Arterial Blood pH (Temp corrected) 7.347 L Arterial Blood pCO2 (Temp correct) 43.7 Arterial Blood pO2 (Temp corrected) 95.9 Arterial Blood HCO3 23.9 Arterial Blood Base Excess -2.4 Arterial Blood Oxygen Saturation 96.8 Oleksandr Test ACCEPTAB Arterial Blood Gas Puncture Site Right Brachial Arterial Blood Carboxyhemoglobin 0.8 Arterial Blood Methemoglobin 0.1 Blood Gas A-a O2 Differential 140.9 H Oxyhemoglobin Percent 95.9 Total Hemoglobin 12.3 Blood Gas Temperature 35.1 Blood Gas Respiration Rate 16.0 Blood Gas Actual Respiration Rate 16 Blood Gas Modality VENT - AC FiO2 40.0 Blood Gas Tidal Volume 500.0 Blood Gas High PEEP Setting 5.0 Blood Gas Notified Whom Bakari LOYD Blood Gas Notified Time 10/14/2016 12:43:34 AM Test 10/13/16 20:12 10/13/16 21:06 10/13/16 22:05 10/13/16 23:03 Bedside Glucose 115 122 133 125 Test 10/14/16 00:10 10/14/16 00:34 10/14/16 01:11 10/14/16 02:16 Bedside Glucose 133 130 134 White Blood Count 13.4 H Red Blood Count 4.21 L Hemoglobin 11.6 L Hematocrit 38.2 L Mean Corpuscular Volume 90.7 Mean Corpuscular Hemoglobin 27.6 L Mean Corpuscular Hemoglobin Concent 30.4 L Red Cell Distribution Width 19.4 H Platelet Count 220 Mean Platelet Volume 10.7 H Neutrophils % 92.5 H Lymphocytes % 1.9 L Monocytes % 4.2 Eosinophils % 0.9 Basophils % 0.1 Nucleated Red Blood Cells % 0.0 Neutrophils # 12.4 H Lymphocytes # 0.3 L Monocytes # 0.6 Eosinophils # 0.1 Basophils # 0.0 Nucleated Red Blood Cells # 0.0 Prothrombin Time 15.7 H Prothrombin Time Ratio 1.2 INR International Normalized Ratio 1.24 Activated Partial Thromboplast Time 28.8 Fibrinogen 386.0 Sodium Level 142 Potassium Level 3.5 Chloride Level 105 Carbon Dioxide Level 27 Anion Gap 14 Blood Urea Nitrogen 27 H Creatinine 1.49 H Glucose Level 145 Calcium Level 7.4 L Phosphorus Level 6.3 H Magnesium Level 2.4 Total Bilirubin 0.7 Direct Bilirubin 0.00 Indirect Bilirubin 0.7 Aspartate Amino Transf (AST/SGOT) 55 H Alanine Aminotransferase (ALT/SGPT) 37 Alkaline Phosphatase 67 Troponin I 0.046 Total Protein 6.5 Albumin 3.1 L Globulin 3.40 H Albumin/Globulin Ratio 0.91 Amylase Level 164 H Lipase < 10 L Test 10/14/16 03:14 10/14/16 04:04 10/14/16 05:10 10/14/16 05:15 Bedside Glucose 126 127 123 White Blood Count 15.9 H Red Blood Count 4.35 L Hemoglobin 11.9 L Hematocrit 39.2 L Mean Corpuscular Volume 90.1 Mean Corpuscular Hemoglobin 27.4 L Mean Corpuscular Hemoglobin Concent 30.4 L Red Cell Distribution Width 19.4 H Platelet Count 236 Mean Platelet Volume 10.1 Neutrophils % 92.1 H Lymphocytes % 2.1 L Monocytes % 3.5 Eosinophils % 1.8 Basophils % 0.1 Nucleated Red Blood Cells % 0.0 Neutrophils # 14.6 H Lymphocytes # 0.3 L Monocytes # 0.6 Eosinophils # 0.3 Basophils # 0.0 Nucleated Red Blood Cells # 0.0 Prothrombin Time 15.8 H Prothrombin Time Ratio 1.2 INR International Normalized Ratio 1.25 Activated Partial Thromboplast Time 31.1 Fibrinogen 431.0 # Sodium Level 142 Potassium Level 3.6 Chloride Level 106 Carbon Dioxide Level 26 Anion Gap 14 Blood Urea Nitrogen 28 H Creatinine 1.72 H Glucose Level 128 Calcium Level 7.5 L Phosphorus Level 6.7 H Magnesium Level 2.2 Total Bilirubin 0.7 Direct Bilirubin 0.00 Indirect Bilirubin 0.7 Aspartate Amino Transf (AST/SGOT) 54 H Alanine Aminotransferase (ALT/SGPT) 38 Alkaline Phosphatase 61 Troponin I 0.064 Total Protein 7.0 Albumin 3.2 L Globulin 3.80 H Albumin/Globulin Ratio 0.84 Amylase Level 119 Lipase < 10 L Test 10/14/16 06:11 10/14/16 07:00 10/14/16 07:03 10/14/16 07:45 Bedside Glucose 101 106 105 Blood Gas Specimen Source Blood arterial Arterial Blood Date Drawn 10/14/2016 7:16:30 AM Arterial Blood pH (Temp corrected) 7.312 L Arterial Blood pCO2 (Temp correct) 48.2 H Arterial Blood pO2 (Temp corrected) 149.0 H Arterial Blood HCO3 23.8 Arterial Blood Base Excess -2.7 Arterial Blood Oxygen Saturation 98.2 H Oleksandr Test ACCEPTAB Arterial Blood Gas Puncture Site Right Radial Arterial Blood Carboxyhemoglobin 0.7 Arterial Blood Methemoglobin 0.1 Blood Gas A-a O2 Differential 80.8 H Oxyhemoglobin Percent 97.4 Total Hemoglobin 12.6 Blood Gas Temperature 37.0 Blood Gas Respiration Rate 16.0 Blood Gas Actual Respiration Rate 16 Blood Gas Modality VENT - AC FiO2 40.0 Blood Gas Tidal Volume 500.0 Blood Gas Low PEEP Setting 5.0 Blood Gas Notified Whom JLD Blood Gas Notified Time 10/14/2016 8:07:06 AM Test 10/14/16 09:44 10/14/16 10:37 10/14/16 11:53 10/14/16 12:00 Bedside Glucose 139 151 Blood Gas Specimen Source Blood arterial Blood arterial Arterial Blood Date Drawn 10/13/2016 2:50:00 PM 10/13/2016 2:50:00 PM Arterial Blood pH (Temp corrected) 7.433 7.433 Arterial Blood pCO2 (Temp correct) 36.7 36.7 Arterial Blood pO2 (Temp corrected) 119.5 H 119.5 H Arterial Blood HCO3 24.9 24.9 Arterial Blood Base Excess -0.4 -0.4 Arterial Blood Oxygen Saturation 98.0 98.0 Oleksandr Test ACCEPTAB ACCEPTAB Arterial Blood Gas Puncture Site Right Radial Right Radial Arterial Blood Carboxyhemoglobin 0.8 0.8 Arterial Blood Methemoglobin 0.1 0.1 Blood Gas A-a O2 Differential 127.1 H 127.1 H Oxyhemoglobin Percent 97.1 97.1 Total Hemoglobin 13.3 13.3 Blood Gas Temperature 33.2 33.2 Blood Gas Respiration Rate 16.0 16.0 Blood Gas Actual Respiration Rate 21 21 Blood Gas Modality VENT - AC VENT - AC FiO2 40.0 40.0 Blood Gas Tidal Volume 550.0 550.0 Blood Gas Low PEEP Setting 5.0 5.0 Blood Gas Notified Whom [facility] Blood Gas Notified Time 10/13/2016 3:04:00 PM 10/13/2016 3:04:00 PM Medications Medications Current Medications Acetaminophen (Tylenol Supp) 650 mg Q4H PRN [place] TEMP > 37C; Start 10/12/16 at 14: 00 Acetaminophen (Tylenol Liquid) 650 mg Q4H PRN PO TEMP > 37C; Start 10/12/16 at 14:00 Acetaminophen (Tylenol Supp) 500 mg Q6H MS Last administered on 10/14/16 02:56 ; Admin Dose 500 MG; Start 10/13/16 at 14:00 Acetaminophen (Tylenol Liquid) 500 mg Q6H PO Last administered on 10/13/16 22: 55; Admin Dose 500 MG; Start 10/13/16 at 14:00 Meperidine HCl (Demerol) 12.5 mg Q4H PRN IV POST OPERATIVE SHIVERING; Start 10/12/16 at 14:00 Meperidine HCl (Demerol) 25 mg Q4H PRN IV POST OPERATIVE SHIVERING; Start at 14:00 Eye Lubricant (Akwa Oint) 1 applic Q6 BOTH EYES Last administered on 10/14/16 11:55; Admin Dose 1 APPLIC; Start 10/12/16 at 18:00 Eye Lubricant 2 drop 2 drop Q6 BOTH EYES Last administered on 10/14/16 11:55; Admin Dose 2 DROP; Start 10/12/16 at 18:00 Piperacillin Sod/ Tazobactam Sod 100 ml @ 200 mls/hr Q6 IVPB Last administered on 10/14/16 11:55; Admin Dose 200 MLS/HR; Start 10/12/16 at 19:00 Dopamine HCl/ Dextrose 250 ml @ 6.75 mls/hr TITRATE IV Last administered on 03:50; Admin Dose 16.875 MLS/HR; Start 10/12/16 at 17:00 Ondansetron HCl (Zofran Inj) 4 mg Q6H PRN IV NAUSEA AND/OR VOMITING; Start 10/12 at 16:30 Pantoprazole (Protonix Iv) 40 mg DAILY@06 IV Last administered on 10/14/16 05: 35; Admin Dose 40 MG; Start 10/13/16 at 06:00 Furosemide 20 mg 20 mg DAILY IV Last administered on 10/12/16 21:31; Admin Dose 20 MG; Start 10/12/16 at 21:00 Dextrose/Sodium Chloride (D5-1/2ns) 1,000 ml @ 150 mls/hr Q6H40M IV Last administered on 10/14/16 02:44; Admin Dose 150 MLS/HR; Start 10/13/16 at 05:00 Insulin Aspart (Novolog Insulin Pen) NOVOLOG *MILD* ALGORITHM Q6 SC Last administered on 10/14/16 12:13; Admin Dose 1 UNIT; Start 10/14/16 at 12:00 Miscellaneous Information 1 ea NOTE XX ; Start 10/14/16 at 11:00 Glucose (Glutose) 15 gm Q15M PRN PO DECREASED GLUCOSE; Start 10/14/16 at 11:00 Glucose (Glutose) 22.5 gm Q15M PRN PO DECREASED GLUCOSE; Start 10/14/16 at 11: 00 Dextrose (D50w Syringe) 25 ml Q15M PRN IV DECREASED GLUCOSE; Start 10/14/16 at 11:00 Dextrose (D50w Syringe) 50 ml Q15M PRN IV DECREASED GLUCOSE; Start 10/14/16 at 11:00 Glucagon (Glucagen) 1 mg Q15M PRN IM DECREASED GLUCOSE; Start 10/14/16 at 11:00 Glucose (Glutose) 15 gm Q15M PRN BUCCAL DECREASED GLUCOSE; Start 10/14/16 at 11 :00 DEXTER ZAMORANO October 14, 2016 13:19
--- NOTE | 2016-10-14 15:27 | PN ---
Date/Time of Note Date/Time of Note DATE: 10/14/16 TIME: 15:25 Assessment/Plan VTE Prophylaxis VTE Prophylaxis Intervention: SCD's Assessment/Plan Chief Complaint/Hosp Course 1. Cardiac arrest with return of circulation Continue hypothermia protocol Cardiology consultation appreciated 2. Anoxic encephalopathy EEG for brain evaluation Neurology consultation 3. Acute respiratory failure secondary to cardiac arrest Continue vent support, pulmonology consultation appreciated 4. History of nonischemic cardiomyopathy with ejection fraction of 25%. 5. History of substance abuse. 6. Anemia, likely secondary to chronic disease. 7. History of schizophrenia. 8. FEN -Replace electrolytes Prophylaxis: Sequential compression devices Problems: Subjective 24 Hr Interval Summary Subjective hx not possible: pt non-verbal Exam/Review of Systems Vital Signs Vitals Vital Signs Date Time Temp Pulse Resp B/P Pulse Ox O2 Delivery O2 Flow Rate FiO2 10/14/16 12:00 93 16 106/87 100 10/14/16 11:30 97.8 10/14/16 08:00 40 10/14/16 07:30 Mechanical Ventilator Intake and Output 10/13/16 10/13/16 10/14/16 15:00 23:00 07:00 Intake Total 1001.875 ml 2949.36 ml 1087.05 ml Output Total 1659 ml 17 ml 95 ml Balance -657.125 ml 2932.36 ml 992.05 ml Exam Constitutional: non-verbal Respiratory: clear to auscultation Cardiovascular: regular rate and rhythm Gastrointestinal: soft, No distended Musculoskeletal: nl extremities to inspection Results Result Diagram: 10/14/16 0515 10/14/16 0515 Results 24 hrs Laboratory Tests Test 10/13/16 17:07 10/13/16 17:58 10/13/16 18:00 10/13/16 18:58 Bedside Glucose 86 116 87 White Blood Count 12.4 H Red Blood Count 4.39 L Hemoglobin 12.3 L Hematocrit 39.0 L Mean Corpuscular Volume 88.8 Mean Corpuscular Hemoglobin 28.0 L Mean Corpuscular Hemoglobin Concent 31.5 L Red Cell Distribution Width 18.6 H Platelet Count 238 Mean Platelet Volume 9.8 Neutrophils % 53.0 Band Neutrophils % 37.0 H Lymphocytes % 4.0 L Monocytes % 6.0 Eosinophils % Neutrophils # 6.6 Lymphocytes # 0.5 L Monocytes # 0.7 Eosinophils # Platelet Estimate PLT APPEAR ADEQUATE Prothrombin Time 16.1 H Prothrombin Time Ratio 1.3 INR International Normalized Ratio 1.28 Activated Partial Thromboplast Time 28.5 Fibrinogen 389.0 Sodium Level 144 Potassium Level 3.1 L Chloride Level 103 Carbon Dioxide Level 27 Anion Gap 17 H Blood Urea Nitrogen 27 H Creatinine 1.22 Glucose Level 121 # Calcium Level 7.6 L Phosphorus Level 4.6 Magnesium Level 2.7 H Total Bilirubin 1.0 Direct Bilirubin 0.00 Indirect Bilirubin 1.0 Aspartate Amino Transf (AST/SGOT) 49 H Alanine Aminotransferase (ALT/SGPT) 32 Alkaline Phosphatase 64 Troponin I 0.041 Total Protein 6.4 Albumin 3.0 L Globulin 3.40 H Albumin/Globulin Ratio 0.88 Amylase Level 175 H Lipase 25 Test 10/13/16 19:47 10/13/16 20:12 10/13/16 21:06 10/13/16 22:05 Blood Gas Specimen Source Blood arterial Arterial Blood Date Drawn 10/14/2016 12:30:00 AM Arterial Blood pH (Temp corrected) 7.347 L Arterial Blood pCO2 (Temp correct) 43.7 Arterial Blood pO2 (Temp corrected) 95.9 Arterial Blood HCO3 23.9 Arterial Blood Base Excess -2.4 Arterial Blood Oxygen Saturation 96.8 Oleksandr Test ACCEPTAB Arterial Blood Gas Puncture Site Right Brachial Arterial Blood Carboxyhemoglobin 0.8 Arterial Blood Methemoglobin 0.1 Blood Gas A-a O2 Differential 140.9 H Oxyhemoglobin Percent 95.9 Total Hemoglobin 12.3 Blood Gas Temperature 35.1 Blood Gas Respiration Rate 16.0 Blood Gas Actual Respiration Rate 16 Blood Gas Modality VENT - AC FiO2 40.0 Blood Gas Tidal Volume 500.0 Blood Gas High PEEP Setting 5.0 Blood Gas Notified Whom T KASSAII Blood Gas Notified Time 10/14/2016 12:43:00 AM Bedside Glucose 115 122 133 Test 10/13/16 23:03 10/14/16 00:10 10/14/16 00:34 10/14/16 01:11 Bedside Glucose 125 133 130 White Blood Count 13.4 H Red Blood Count 4.21 L Hemoglobin 11.6 L Hematocrit 38.2 L Mean Corpuscular Volume 90.7 Mean Corpuscular Hemoglobin 27.6 L Mean Corpuscular Hemoglobin Concent 30.4 L Red Cell Distribution Width 19.4 H Platelet Count 220 Mean Platelet Volume 10.7 H Neutrophils % 92.5 H Lymphocytes % 1.9 L Monocytes % 4.2 Eosinophils % 0.9 Basophils % 0.1 Nucleated Red Blood Cells % 0.0 Neutrophils # 12.4 H Lymphocytes # 0.3 L Monocytes # 0.6 Eosinophils # 0.1 Basophils # 0.0 Nucleated Red Blood Cells # 0.0 Prothrombin Time 15.7 H Prothrombin Time Ratio 1.2 INR International Normalized Ratio 1.24 Activated Partial Thromboplast Time 28.8 Fibrinogen 386.0 Sodium Level 142 Potassium Level 3.5 Chloride Level 105 Carbon Dioxide Level 27 Anion Gap 14 Blood Urea Nitrogen 27 H Creatinine 1.49 H Glucose Level 145 Calcium Level 7.4 L Phosphorus Level 6.3 H Magnesium Level 2.4 Total Bilirubin 0.7 Direct Bilirubin 0.00 Indirect Bilirubin 0.7 Aspartate Amino Transf (AST/SGOT) 55 H Alanine Aminotransferase (ALT/SGPT) 37 Alkaline Phosphatase 67 Troponin I 0.046 Total Protein 6.5 Albumin 3.1 L Globulin 3.40 H Albumin/Globulin Ratio 0.91 Amylase Level 164 H Lipase < 10 L Test 10/14/16 02:16 10/14/16 03:14 10/14/16 04:04 10/14/16 05:10 Bedside Glucose 134 126 127 123 Test 10/14/16 05:15 10/14/16 06:11 10/14/16 07:00 10/14/16 07:03 White Blood Count 15.9 H Red Blood Count 4.35 L Hemoglobin 11.9 L Hematocrit 39.2 L Mean Corpuscular Volume 90.1 Mean Corpuscular Hemoglobin 27.4 L Mean Corpuscular Hemoglobin Concent 30.4 L Red Cell Distribution Width 19.4 H Platelet Count 236 Mean Platelet Volume 10.1 Neutrophils % 92.1 H Lymphocytes % 2.1 L Monocytes % 3.5 Eosinophils % 1.8 Basophils % 0.1 Nucleated Red Blood Cells % 0.0 Neutrophils # 14.6 H Lymphocytes # 0.3 L Monocytes # 0.6 Eosinophils # 0.3 Basophils # 0.0 Nucleated Red Blood Cells # 0.0 Prothrombin Time 15.8 H Prothrombin Time Ratio 1.2 INR International Normalized Ratio 1.25 Activated Partial Thromboplast Time 31.1 Fibrinogen 431.0 # Sodium Level 142 Potassium Level 3.6 Chloride Level 106 Carbon Dioxide Level 26 Anion Gap 14 Blood Urea Nitrogen 28 H Creatinine 1.72 H Glucose Level 128 Calcium Level 7.5 L Phosphorus Level 6.7 H Magnesium Level 2.2 Total Bilirubin 0.7 Direct Bilirubin 0.00 Indirect Bilirubin 0.7 Aspartate Amino Transf (AST/SGOT) 54 H Alanine Aminotransferase (ALT/SGPT) 38 Alkaline Phosphatase 61 Troponin I 0.064 Total Protein 7.0 Albumin 3.2 L Globulin 3.80 H Albumin/Globulin Ratio 0.84 Amylase Level 119 Lipase < 10 L Bedside Glucose 101 106 Blood Gas Specimen Source Blood arterial Arterial Blood Date Drawn 10/14/2016 7:16:30 AM Arterial Blood pH (Temp corrected) 7.312 L Arterial Blood pCO2 (Temp correct) 48.2 H Arterial Blood pO2 (Temp corrected) 149.0 H Arterial Blood HCO3 23.8 Arterial Blood Base Excess -2.7 Arterial Blood Oxygen Saturation 98.2 H Oleksandr Test ACCEPTAB Arterial Blood Gas Puncture Site Right Radial Arterial Blood Carboxyhemoglobin 0.7 Arterial Blood Methemoglobin 0.1 Blood Gas A-a O2 Differential 80.8 H Oxyhemoglobin Percent 97.4 Total Hemoglobin 12.6 Blood Gas Temperature 37.0 Blood Gas Respiration Rate 16.0 Blood Gas Actual Respiration Rate 16 Blood Gas Modality VENT - AC FiO2 40.0 Blood Gas Tidal Volume 500.0 Blood Gas Low PEEP Setting 5.0 Blood Gas Notified Whom JLD Blood Gas Notified Time 10/14/2016 8:07:06 AM Test 10/14/16 07:45 10/14/16 09:44 10/14/16 10:37 10/14/16 11:53 Bedside Glucose 105 139 151 Blood Gas Specimen Source Blood arterial Arterial Blood Date Drawn 10/13/2016 2:50:00 PM Arterial Blood pH (Temp corrected) 7.433 Arterial Blood pCO2 (Temp correct) 36.7 Arterial Blood pO2 (Temp corrected) 119.5 H Arterial Blood HCO3 24.9 Arterial Blood Base Excess -0.4 Arterial Blood Oxygen Saturation 98.0 Oleksandr Test ACCEPTAB Arterial Blood Gas Puncture Site Right Radial Arterial Blood Carboxyhemoglobin 0.8 Arterial Blood Methemoglobin 0.1 Blood Gas A-a O2 Differential 127.1 H Oxyhemoglobin Percent 97.1 Total Hemoglobin 13.3 Blood Gas Temperature 33.2 Blood Gas Respiration Rate 16.0 Blood Gas Actual Respiration Rate 21 Blood Gas Modality VENT - AC FiO2 40.0 Blood Gas Tidal Volume 550.0 Blood Gas Low PEEP Setting 5.0 Blood Gas Notified Whom JLD Blood Gas Notified Time 10/13/2016 3:04:00 PM Test 10/14/16 12:00 Blood Gas Specimen Source Blood arterial Arterial Blood Date Drawn 10/13/2016 2:50:00 PM Arterial Blood pH (Temp corrected) 7.433 Arterial Blood pCO2 (Temp correct) 36.7 Arterial Blood pO2 (Temp corrected) 119.5 H Arterial Blood HCO3 24.9 Arterial Blood Base Excess -0.4 Arterial Blood Oxygen Saturation 98.0 Oleksandr Test ACCEPTAB Arterial Blood Gas Puncture Site Right Radial Arterial Blood Carboxyhemoglobin 0.8 Arterial Blood Methemoglobin 0.1 Blood Gas A-a O2 Differential 127.1 H Oxyhemoglobin Percent 97.1 Total Hemoglobin 13.3 Blood Gas Temperature 33.2 Blood Gas Respiration Rate 16.0 Blood Gas Actual Respiration Rate 21 Blood Gas Modality VENT - AC FiO2 40.0 Blood Gas Tidal Volume 550.0 Blood Gas Low PEEP Setting 5.0 Blood Gas Notified Whom JLD Blood Gas Notified Time 10/13/2016 3:04:00 PM Medications Medications Current Medications Acetaminophen (Tylenol Supp) 650 mg Q4H PRN [place] TEMP > 37C; Start 10/12/16 at 14: 00 Acetaminophen (Tylenol Liquid) 650 mg Q4H PRN PO TEMP > 37C; Start 10/12/16 at 14:00 Acetaminophen (Tylenol Supp) 500 mg Q6H [place] Last administered on 10/14/16 02:56 ; Admin Dose 500 MG; Start 10/13/16 at 14:00 Acetaminophen (Tylenol Liquid) 500 mg Q6H PO Last administered on 10/13/16 22: 55; Admin Dose 500 MG; Start 10/13/16 at 14:00 Meperidine HCl (Demerol) 12.5 mg Q4H PRN IV POST OPERATIVE SHIVERING; Start 10/12/16 at 14:00 Meperidine HCl (Demerol) 25 mg Q4H PRN IV POST OPERATIVE SHIVERING; Start at 14:00 Eye Lubricant (Akwa Oint) 1 applic Q6 BOTH EYES Last administered on 10/14/16 11:55; Admin Dose 1 APPLIC; Start 10/12/16 at 18:00 Eye Lubricant 2 drop 2 drop Q6 BOTH EYES Last administered on 10/14/16 11:55; Admin Dose 2 DROP; Start 10/12/16 at 18:00 Piperacillin Sod/ Tazobactam Sod 100 ml @ 200 mls/hr Q6 IVPB Last administered on 10/14/16 11:55; Admin Dose 200 MLS/HR; Start 10/12/16 at 19:00 Dopamine HCl/ Dextrose 250 ml @ 6.75 mls/hr TITRATE IV Last administered on 03:50; Admin Dose 16.875 MLS/HR; Start 10/12/16 at 17:00 Ondansetron HCl (Zofran Inj) 4 mg Q6H PRN IV NAUSEA AND/OR VOMITING; Start 10/12 at 16:30 Pantoprazole (Protonix Iv) 40 mg DAILY@06 IV Last administered on 10/14/16 05: 35; Admin Dose 40 MG; Start 10/13/16 at 06:00 Furosemide 20 mg 20 mg DAILY IV Last administered on 10/12/16 21:31; Admin Dose 20 MG; Start 10/12/16 at 21:00 Dextrose/Sodium Chloride (D5-1/2ns) 1,000 ml @ 150 mls/hr Q6H40M IV Last administered on 10/14/16 02:44; Admin Dose 150 MLS/HR; Start 10/13/16 at 05:00 Insulin Aspart (Novolog Insulin Pen) NOVOLOG *MILD* ALGORITHM Q6 SC Last administered on 10/14/16 12:13; Admin Dose 1 UNIT; Start 10/14/16 at 12:00 Miscellaneous Information 1 ea NOTE XX ; Start 10/14/16 at 11:00 Glucose (Glutose) 15 gm Q15M PRN PO DECREASED GLUCOSE; Start 10/14/16 at 11:00 Glucose (Glutose) 22.5 gm Q15M PRN PO DECREASED GLUCOSE; Start 10/14/16 at 11: 00 Dextrose (D50w Syringe) 25 ml Q15M PRN IV DECREASED GLUCOSE; Start 10/14/16 at 11:00 Dextrose (D50w Syringe) 50 ml Q15M PRN IV DECREASED GLUCOSE; Start 10/14/16 at 11:00 Glucagon (Glucagen) 1 mg Q15M PRN IM DECREASED GLUCOSE; Start 10/14/16 at 11:00 Glucose (Glutose) 15 gm Q15M PRN BUCCAL DECREASED GLUCOSE; Start 10/14/16 at 11 :00 TIFFANIE WILSON October 14, 2016 15:27
--- NOTE | 2016-10-14 18:43 | CONS ---
DATE OF ADMISSION: 10/12/2016 DATE OF CONSULTATION: Thank you, Dr. Haddad, for your kind referral for evaluation of anoxic encephalopathy, possibly bra in . HISTORY OF PRESENT ILLNESS: The patient is a 51-year-old gentleman with history of schizophrenia, d rug abuse, cardiomyopathy, ejection fraction of 25, at some point atrial flutter. The patient came following cardiopulmonary arrest in the field, went into ventricular fibrillation, was shocked, went into PEA again in the emergency room, and then had return of circulation. He was placed on hypothermia, but since completion of hypothermia, he continues to be unresponsive. CAT scan of the head was done on admission. He came 2 days ago on 10/12/2016. CAT scan shows mild symmetrical sulcal effacement involving parietal, posterior temporal, and occipital lobes suggestiv e of mild cerebral edema compatible with anoxic hypoxic brain injury. I found code blue documentation for him. He went into arrest at 1231 PEA, 1236 he had blood pressur e and sinus tachycardic but still 52 sinus isela, and 1257 again PEA. ALLERGIES: ERYTHROMYCIN. CURRENT MEDICATIONS: 1. Insulin. 2. Lasix. 3. Zosyn. 4. Dopamine. IMAGING: Chest x-ray shows interstitial edema. LABORATORY DATA: The patient's labs show WBC 15.9, hemoglobin 11.9, hematocrit 39.2, platelets 236, 92% neutrophils. PT 15.8, PTT 31. Chemistry: BUN 28, creatinine 1.72, calcium 7.5, AST of 54, al bumin 3.2. Rest of comprehensive metabolic panel within normal limits. Urinalysis 1+ hemoglobin an d 4+ protein. Tox screen was negative. Blood gas today 7.43 pH, pCO2 of 36, pO2 of 119. PHYSICAL EXAMINATION: VITAL SIGNS: Temperature 97.8, 87 pulse, 18 respirations, 104/81 blood pressure. GENERAL: Not in acute distress, lying in bed. HEENT: Normocephalic, atraumatic head. Intubated orally. NECK: Supple. LUNGS: Clear to auscultation. CARDIAC: Normal cardiac rhythm and sounds. ABDOMEN: Soft. EXTREMITIES: No cyanosis, clubbing, or edema. NEUROLOGIC: He is lethargic. Eyes closed. No response to voice, pain, or commands. No response t o visual threat. Pupils fixed about 1.5 mm bilaterally. Extraocular movements absent spontaneously , but present to oculocephalic maneuver bilaterally. Corneal reflexes absent. Gag is absent. No m ovements of flaccid extremities to pain. Deep tendon reflexes 1+ upper extremities. I was unable t o obtain lower extremities. No definite response to plantar stimulation. IMPRESSION: 1. Severe anoxic encephalopathy, status post cardiopulmonary arrest. 2. Status post hypothermia. 3. The patient is not brain given presence of extraocular movements on oculocephalic maneuver. Continue current treatment. We will obtain EEG for further evaluation of encephalopathy. I thank you very much for this interesting consultation. Dictated By: MARYANN ArringtonV/NTS Conf#: [id number] DID#: [id number] CC: TIFFANIE HADDAD MD;*End*
[2016-10-15] VITALS (92 sets, daily range): BP systolic 84–118; BP diastolic 48–76; PULSE 61–76; RESP 9–32
[2016-10-15] MEDS: ACETAMINOPHEN 650MG/20.3ML CUP PO SCH ×4 (02:00→20:36)
[2016-10-15] MEDS: ACETAMINOPHEN 650 MG SUPP PR SCH ×4 (02:00→20:00)
[2016-10-15] MEDS: ARTIFICIAL TEARS 15 ML OPH BOTH EYES SCH ×4 (06:00→23:45)
[2016-10-15] MEDS: PANTOPRAZOLE 40 MG INJ IV SCH (06:00)
[2016-10-15] MEDS: PIPER-TAZO 3.375 GM IV (PMX) 100 ML IVPB SCH ×3 (06:00→17:44)
[2016-10-15] MEDS: OCULAR LUBRICANT 3.5 GM OPH OINT BOTH EYES SCH ×4 (06:01→23:46)
[2016-10-15] MEDS: INSULIN ASPART [NOVOLOG] 3 ML PEN SC SCH ×3 (06:02→17:43)
[2016-10-15 06:13] LABS: ADD SCAN DIFF NO
[2016-10-15 06:19] LABS: ABNORMAL IP MESSAGE 1; BASOPHILS % 0.2 % (0.0-2.0); EOSINOPHILS # 0.4 10^3/ul (0.0-0.5); EOSINOPHILS % 3.2 % (0.0-7.0); HEMATOCRIT 33.1 % (42.0-52.0); HEMOGLOBIN 10.2 g/dl (14.0-18.0); LYMPHOCYTES # 0.5 10^3/ul (0.8-2.9); LYMPHOCYTES % 4.1 % (15.0-51.0); MEAN CORPUSCULAR HEMOGLOBIN 27.3 pg (29.0-33.0); MEAN CORPUSCULAR HGB CONC 30.8 g/dl (32.0-37.0); MEAN CORPUSCULAR VOLUME 88.7 fl (82.0-101.0); MONOCYTE # 0.4 10^3/ul (0.3-0.9); MONOCYTES % 3.5 % (0.0-11.0); NEUTROPHIL # 11.2 10^3/ul (1.6-7.5); NEUTROPHILS % 88.5 % (39.0-77.0); PLATELET COUNT 215 10^3/UL (140-415); RED BLOOD COUNT 3.73 10^6/ul (4.70-6.10); RED CELL DISTRIBUTION WIDTH 19.5 % (11.5-14.5); WHITE BLOOD COUNT 12.6 10^3/ul (4.8-10.8)
[2016-10-15 07:09] LABS: CALCIUM 7.5 mg/dl (8.4-10.2); CREATININE 1.72 mg/dl (0.61-1.24); POTASSIUM 3.2 mmol/L (3.5-5.1)
--- NOTE | 2016-10-15 07:27 | RADRPT ---
PROCEDURE: Chest Radiograph. CLINICAL INDICATION: Pneumonia. CHF. TECHNIQUE: Single frontal chest radiograph. COMPARISON: Chest radiograph 10/14/2016 FINDINGS: An endotracheal tube is in place with distal tip approximate 4.4 cm above the kandis. Nasogastric t ube remains in stable and radiographically appropriate position.. The heart is magnified. There is a hazy left retrocardiac opacity which may represent atelectasis, infiltrate, or effusion. Lungs ar e otherwise grossly clear. The bones are intact. IMPRESSION: 1. Left retrocardiac opacification which may represent atelectasis, infiltrate, or effusion. 2. Lines and tubes are stable. RPTAT: AA .Galo Rodriguez MD, MD Date Time Electronically viewed and signed by .Galo Rodriguez MD, MD on 10/15/2016 07:26 .B/
[2016-10-15 08:33] LABS: AADO2 Arterial 125.5 mmHg (7.0-24.0); Allen Test ACCEPTAB; Arterial Base Excess 1.8 mmol/L (-3.0-3); Arterial COHb 0.4 % (0.0-3.0); Arterial Fraction of Oxyhgb 97.2 % (93.0-99.0); Arterial HCO3 25.5 mmol/L (22.0-26.0); Arterial MetHb 0.1 % (0.0-1.5); Arterial Total Hemglobin 10.7 g/dl (12.0-18.0); MODE VENT - AC
[2016-10-15] MEDS: FUROSEMIDE 20 MG INJ IV SCH (08:44)
[2016-10-15] MEDS ORDERED: LIDOCAINE 1% (MPF) 5 ML VIAL SC ONE (10:00)
[2016-10-15] MEDS ORDERED: POTASSIUM CHLORIDE 250 ML IVPB ONE (10:30)
--- NOTE | 2016-10-15 10:46 | RADRPT ---
PROCEDURE: US guidance for PICC line CLINICAL INDICATION: PICC line placement TECHNIQUE: Multiple real-time images were acquired of the patient's arm utilizing a high resolutio n transducer. This was performed by the PICC line nurse for venous access. COMPARISON: None FINDINGS: Ultrasound guidance for PICC line placement. IMPRESSION: Ultrasound guidance for PICC line placement. RPTAT: AA .Domingo Omer MD, MD Date Time Electronically viewed and signed by .Domingo Omer MD, on 10/15/2016 10:45 .S/
--- NOTE | 2016-10-15 10:54 | CONS ---
Date/Time of Note Date/Time of Note DATE: 10/15/16 TIME: 10:53 Consult Date/Type/Reason Admit Date/Time October 12, 2016 at 16:30 Type of Consultation: Pulmonary ICU Ordering Provider: TIFFANIE WILSON Subjective Patient remains somnolent on mechanical ventilation Opens eyes but not following commands Continues to feeding as tolerated Objective Vital Signs Date Time Temp Pulse Resp B/P Pulse Ox O2 Delivery O2 Flow Rate FiO2 10/15/16 10:15 66 22 96/55 97 Mechanical Ventilator 10/15/16 08:00 99.2 10/15/16 08:00 40 Intake and Output 10/14/16 10/14/16 10/15/16 14:59 22:59 06:59 Intake Total 1128.015 ml 894.901 ml 822.25 ml Output Total 45 ml 441 ml 336 ml Balance 1083.015 ml 453.901 ml 486.25 ml Exam PHYSICAL EXAMINATION: GENERAL: Elderly-appearing gentleman, intubated on mechanical ventilation. VITAL SIGNS: As above HEENT: Pupils are nonreactive CARDIAC: S1, S2, no added sounds or murmurs. CHEST: Diminished air entry bilaterally. ABDOMEN: Soft, nontender. No guarding or rebound. EXTREMITIES: No cyanosis, clubbing, edema. NEUROLOGIC: Unable to assess. Results/Medications Result Diagram: 10/15/16 0540 10/15/16 0540 Results 24 hrs Laboratory Tests Test 10/14/16 11:53 10/14/16 12:00 10/14/16 18:00 10/14/16 23:52 Bedside Glucose 151 142 Blood Gas Specimen Source Blood arterial Blood arterial Arterial Blood Date Drawn 10/13/2016 2:50:00 PM 10/13/2016 2:50:00 PM Arterial Blood pH (Temp corrected) 7.433 7.433 Arterial Blood pCO2 (Temp correct) 36.7 36.7 Arterial Blood pO2 (Temp corrected) 119.5 H 119.5 H Arterial Blood HCO3 24.9 24.9 Arterial Blood Base Excess -0.4 -0.4 Arterial Blood Oxygen Saturation 98.0 98.0 Oleksandr Test ACCEPTAB ACCEPTAB Arterial Blood Gas Puncture Site Right Radial Right Radial Arterial Blood Carboxyhemoglobin 0.8 0.8 Arterial Blood Methemoglobin 0.1 0.1 Blood Gas A-a O2 Differential 127.1 H 127.1 H Oxyhemoglobin Percent 97.1 97.1 Total Hemoglobin 13.3 13.3 Blood Gas Temperature 33.2 33.2 Blood Gas Respiration Rate 16.0 16.0 Blood Gas Actual Respiration Rate 21 21 Blood Gas Modality VENT - AC VENT - AC FiO2 40.0 40.0 Blood Gas Tidal Volume 550.0 550.0 Blood Gas Low PEEP Setting 5.0 5.0 Blood Gas Notified Whom KARIME SCHAFFER Blood Gas Notified Time 10/13/2016 3:04:00 PM 10/13/2016 3:04:00 PM Test 10/15/16 05:36 10/15/16 05:40 10/15/16 07:00 Bedside Glucose 152 White Blood Count 12.6 #H Red Blood Count 3.73 L Hemoglobin 10.2 L Hematocrit 33.1 L Mean Corpuscular Volume 88.7 Mean Corpuscular Hemoglobin 27.3 L Mean Corpuscular Hemoglobin Concent 30.8 L Red Cell Distribution Width 19.5 H Platelet Count 215 Mean Platelet Volume 11.0 H Neutrophils % 88.5 H Lymphocytes % 4.1 L Monocytes % 3.5 Eosinophils % 3.2 Basophils % 0.2 Nucleated Red Blood Cells % 0.0 Neutrophils # 11.2 H Lymphocytes # 0.5 L Monocytes # 0.4 Eosinophils # 0.4 Basophils # 0.0 Nucleated Red Blood Cells # 0.0 Sodium Level 142 Potassium Level 3.2 L Chloride Level 109 Carbon Dioxide Level 26 Anion Gap 10 Blood Urea Nitrogen 29 H Creatinine 1.72 H Glucose Level 155 Calcium Level 7.5 L Blood Gas Specimen Source Blood arterial Arterial Blood Date Drawn 10/15/2016 7:22:24 AM Arterial Blood pH (Temp corrected) 7.465 H Arterial Blood pCO2 (Temp correct) 36.2 Arterial Blood pO2 (Temp corrected) 118.1 H Arterial Blood HCO3 25.5 Arterial Blood Base Excess 1.8 Arterial Blood Oxygen Saturation 97.7 Oleksandr Test ACCEPTAB Arterial Blood Gas Puncture Site Right Radial Arterial Blood Carboxyhemoglobin 0.4 Arterial Blood Methemoglobin 0.1 Blood Gas A-a O2 Differential 125.5 H Oxyhemoglobin Percent 97.2 Total Hemoglobin 10.7 L Blood Gas Temperature 37.0 Blood Gas Respiration Rate 16.0 Blood Gas Actual Respiration Rate 19 Blood Gas Modality VENT - AC FiO2 40.0 Blood Gas Tidal Volume 500.0 Blood Gas Low PEEP Setting 5.0 Blood Gas Notified Whom KARIME Blood Gas Notified Time 10/15/2016 8:33:12 AM Medications Current Medications Acetaminophen (Tylenol Supp) 650 mg Q4H PRN LA TEMP > 37C; Start 10/12/16 at 14: 00 Acetaminophen (Tylenol Liquid) 650 mg Q4H PRN PO TEMP > 37C; Start 10/12/16 at 14:00 Acetaminophen (Tylenol Supp) 500 mg Q6H LA Last administered on 10/14/16 02:56 ; Admin Dose 500 MG; Start 10/13/16 at 14:00 Acetaminophen (Tylenol Liquid) 500 mg Q6H PO Last administered on 10/13/16 22: 55; Admin Dose 500 MG; Start 10/13/16 at 14:00 Meperidine HCl (Demerol) 12.5 mg Q4H PRN IV POST OPERATIVE SHIVERING; Start 10/12/16 at 14:00 Meperidine HCl (Demerol) 25 mg Q4H PRN IV POST OPERATIVE SHIVERING; Start at 14:00 Eye Lubricant (Akwa Oint) 1 applic Q6 BOTH EYES Last administered on 10/15/16 06:01; Admin Dose 1 APPLIC; Start 10/12/16 at 18:00 Eye Lubricant 2 drop 2 drop Q6 BOTH EYES Last administered on 10/15/16 06:00; Admin Dose 2 DROP; Start 10/12/16 at 18:00 Piperacillin Sod/ Tazobactam Sod 100 ml @ 200 mls/hr Q6 IVPB Last administered on 10/15/16 06:00; Admin Dose 200 MLS/HR; Start 10/12/16 at 19:00 Dopamine HCl/ Dextrose 250 ml @ 6.488 mls/ hr TITRATE IV Last administered on 10/13/16 03:50; Admin Dose 16.875 MLS/HR; Start 10/12/16 at 17:00 Ondansetron HCl (Zofran Inj) 4 mg Q6H PRN IV NAUSEA AND/OR VOMITING; Start 10/12 at 16:30 Pantoprazole (Protonix Iv) 40 mg DAILY@06 IV Last administered on 10/15/16 06: 00; Admin Dose 40 MG; Start 10/13/16 at 06:00 Furosemide (Lasix) 20 mg DAILY IV Last administered on 10/12/16 21:31; Admin Dose 20 MG; Start 10/12/16 at 21:00 Insulin Aspart (Novolog Insulin Pen) NOVOLOG *MILD* ALGORITHM Q6 SC Last administered on 10/15/16 06:02; Admin Dose 1 UNIT; Start 10/14/16 at 12:00 Miscellaneous Information 1 ea NOTE XX ; Start 10/14/16 at 11:00 Glucose (Glutose) 15 gm Q15M PRN PO DECREASED GLUCOSE; Start 10/14/16 at 11:00 Glucose (Glutose) 22.5 gm Q15M PRN PO DECREASED GLUCOSE; Start 10/14/16 at 11: 00 Dextrose (D50w Syringe) 25 ml Q15M PRN IV DECREASED GLUCOSE; Start 10/14/16 at 11:00 Dextrose (D50w Syringe) 50 ml Q15M PRN IV DECREASED GLUCOSE; Start 10/14/16 at 11:00 Glucagon (Glucagen) 1 mg Q15M PRN IM DECREASED GLUCOSE; Start 10/14/16 at 11:00 Glucose 15 gm 15 gm Q15M PRN BUCCAL DECREASED GLUCOSE; Start 10/14/16 at 11:00 Potassium Chloride (KCl 40 MEQ/250 ML NS) 250 ml @ 62.5 mls/hr ONCE ONCE IVPB ; Start 10/15/16 at 10:30; Stop 10/15/16 at 14:29 Assessment/Plan Chief Complaint/Hosp Course IMPRESSION AND PLAN: 1. Cardiopulmonary arrest. 2. Possible aspiration pneumonia. 3. Evidence of anoxic brain injury but not brain 4. History of congestive heart failure and atrial fibrillation. Decreased ejection fraction 5. History of substance abuse PLAN: 1. Continue mechanical ventilation. 2. Broad-spectrum antibiotics, for aspiration pneumonia 3. Decrease minute ventilation has respiratory alkalosis 4. Start tube feeding once off paralytics 5. Family considering goals of care 6. DC femoral line placed PICC line Disposition Continue ICU care Problems: TRUNG LORA MD, [facility] October 15, 2016 10:54
[2016-10-15] MEDS: DOPamine-D5W 1.6 MG/ML 250 ML IV SCH (11:15)
--- NOTE | 2016-10-15 11:19 | RADRPT ---
PROCEDURE: XR Chest. CLINICAL INDICATION: Check PICC line position. TECHNIQUE: Single frontal view. COMPARISON: 10/15/2016. 0529 hours. FINDINGS: There is a left arm PICC line with the tip in the mid superior vena cava. The endotracheal tube and nasogastric tube remain in satisfactory position. The heart is enlarged. There is mild left basil ar atelectasis or pneumonia. The lungs are otherwise clear. There is no pleural effusion. There is no pneumothorax. IMPRESSION: 1. Satisfactory position of left arm PICC line. 2. No other change from the prior study done earlier the same day. RPTAT: QQ .Vu Ashley MD, MD Date Time Electronically viewed and signed by .Vu Ashley MD, MD on 10/15/2016 11:18 .R/
--- NOTE | 2016-10-15 12:40 | CONS ---
Date/Time of Note Date/Time of Note DATE: 10/15/16 TIME: 12:34 Assessment/Plan Assessment/Plan Chief Complaint/Hosp Course IMPRESSION: 1. Cardiac arrest, currently with a perfusing rhythm on dopamine very low dose 2. Cardiomyopathy with severely depressed left ventricular ejection fraction. 3. Congestive heart failure, systolic, acute on chronic. 4. Respiratory failure, status post intubation. 5. Encephalopathy. 6. Anemia. 7. Cerebral edema. 8. Initial acidosis, improving. 9. History of ventricular tachycardia. 10. History of substance abuse. 11.Encephalopathy REcc: -Tele -serial ecg's -Continue lasix and follow volume status closely -Continue abx's and f/u cx data -Follow MS closely with EEG pnding and neuro following Problems: Consultation Date/Type/Reason Admit Date/Time October 12, 2016 at 16:30 Initial Consult Date 10/12/2016 Type of Consultation: Cardiology Reason for Consultation Cardiac arrest Referring Provider: TIFFANIE WILSON Exam/Review of Systems Vital Signs Vitals Vital Signs Date Time Temp Pulse Resp B/P Pulse Ox O2 Delivery O2 Flow Rate FiO2 10/15/16 12:15 66 22 99/60 100 Mechanical Ventilator 10/15/16 11:30 99.7 10/15/16 11:30 40 Intake and Output 10/14/16 10/14/16 10/15/16 15:00 23:00 07:00 Intake Total 1156.128 ml 794.388 ml 831.75 ml Output Total 45 ml 495 ml 303 ml Balance 1111.128 ml 299.388 ml 528.75 ml Exam Review of Systems: CONSTITUTIONAL: No fevers, chills. PULMONARY: No sob CARDIOVASCULAR: No chest pain/palpitations GASTROINTESTINAL: No nausea/vomiting. GENITOURINARY: No hematuria/dysuria. MUSCULOSKELETAL: No myagias/arthalgias. PSYCHIATRIC: The patient denies depression. NEUROLOGIC: encephalopathic Constitutional: alert Psych: no complaints Head: normocephalic ENMT: mucosa pink and moist Neck: jvd, supple Respiratory: diminished breath sounds Cardiovascular: regular rate and rhythm Gastrointestinal: non-tender, soft Musculoskeletal: muscle tone Extremities: edema (none) Neurological: other (Encephalopathic) Results Result Diagram: 10/15/16 0540 10/15/16 0540 Results 24 hrs Laboratory Tests Test 10/14/16 18:00 10/14/16 23:52 10/15/16 05:36 10/15/16 05:40 Blood Gas Specimen Source Blood arterial Arterial Blood Date Drawn 10/13/2016 2:50:00 PM Arterial Blood pH (Temp corrected) 7.433 Arterial Blood pCO2 (Temp correct) 36.7 Arterial Blood pO2 (Temp corrected) 119.5 H Arterial Blood HCO3 24.9 Arterial Blood Base Excess -0.4 Arterial Blood Oxygen Saturation 98.0 Oleksandr Test ACCEPTAB Arterial Blood Gas Puncture Site Right Radial Arterial Blood Carboxyhemoglobin 0.8 Arterial Blood Methemoglobin 0.1 Blood Gas A-a O2 Differential 127.1 H Oxyhemoglobin Percent 97.1 Total Hemoglobin 13.3 Blood Gas Temperature 33.2 Blood Gas Respiration Rate 16.0 Blood Gas Actual Respiration Rate 21 Blood Gas Modality VENT - AC FiO2 40.0 Blood Gas Tidal Volume 550.0 Blood Gas Low PEEP Setting 5.0 Blood Gas Notified Whom JLD Blood Gas Notified Time 10/13/2016 3:04:00 PM Bedside Glucose 142 152 White Blood Count 12.6 #H Red Blood Count 3.73 L Hemoglobin 10.2 L Hematocrit 33.1 L Mean Corpuscular Volume 88.7 Mean Corpuscular Hemoglobin 27.3 L Mean Corpuscular Hemoglobin Concent 30.8 L Red Cell Distribution Width 19.5 H Platelet Count 215 Mean Platelet Volume 11.0 H Neutrophils % 88.5 H Lymphocytes % 4.1 L Monocytes % 3.5 Eosinophils % 3.2 Basophils % 0.2 Nucleated Red Blood Cells % 0.0 Neutrophils # 11.2 H Lymphocytes # 0.5 L Monocytes # 0.4 Eosinophils # 0.4 Basophils # 0.0 Nucleated Red Blood Cells # 0.0 Sodium Level 142 Potassium Level 3.2 L Chloride Level 109 Carbon Dioxide Level 26 Anion Gap 10 Blood Urea Nitrogen 29 H Creatinine 1.72 H Glucose Level 155 Calcium Level 7.5 L Test 10/15/16 07:00 10/15/16 11:46 Blood Gas Specimen Source Blood arterial Arterial Blood Date Drawn 10/15/2016 7:22:24 AM Arterial Blood pH (Temp corrected) 7.465 H Arterial Blood pCO2 (Temp correct) 36.2 Arterial Blood pO2 (Temp corrected) 118.1 H Arterial Blood HCO3 25.5 Arterial Blood Base Excess 1.8 Arterial Blood Oxygen Saturation 97.7 Oleksandr Test ACCEPTAB Arterial Blood Gas Puncture Site Right Radial Arterial Blood Carboxyhemoglobin 0.4 Arterial Blood Methemoglobin 0.1 Blood Gas A-a O2 Differential 125.5 H Oxyhemoglobin Percent 97.2 Total Hemoglobin 10.7 L Blood Gas Temperature 37.0 Blood Gas Respiration Rate 16.0 Blood Gas Actual Respiration Rate 19 Blood Gas Modality VENT - AC FiO2 40.0 Blood Gas Tidal Volume 500.0 Blood Gas Low PEEP Setting 5.0 Blood Gas Notified Whom JLD Blood Gas Notified Time 10/15/2016 8:33:12 AM Bedside Glucose 114 Medications Medications Current Medications Acetaminophen (Tylenol Supp) 650 mg Q4H PRN NE TEMP > 37C; Start 10/12/16 at 14: 00 Acetaminophen (Tylenol Liquid) 650 mg Q4H PRN PO TEMP > 37C; Start 10/12/16 at 14:00 Acetaminophen (Tylenol Supp) 500 mg Q6H NE Last administered on 10/14/16 02:56 ; Admin Dose 500 MG; Start 10/13/16 at 14:00 Acetaminophen (Tylenol Liquid) 500 mg Q6H PO Last administered on 10/13/16 22: 55; Admin Dose 500 MG; Start 10/13/16 at 14:00 Meperidine HCl (Demerol) 12.5 mg Q4H PRN IV POST OPERATIVE SHIVERING; Start 10/12/16 at 14:00 Meperidine HCl (Demerol) 25 mg Q4H PRN IV POST OPERATIVE SHIVERING; Start at 14:00 Eye Lubricant (Akwa Oint) 1 applic Q6 BOTH EYES Last administered on 10/15/16 11:08; Admin Dose 1 APPLIC; Start 10/12/16 at 18:00 Eye Lubricant 2 drop 2 drop Q6 BOTH EYES Last administered on 10/15/16 11:08; Admin Dose 2 DROP; Start 10/12/16 at 18:00 Piperacillin Sod/ Tazobactam Sod 100 ml @ 200 mls/hr Q6 IVPB Last administered on 10/15/16 12:12; Admin Dose 200 MLS/HR; Start 10/12/16 at 19:00 Dopamine HCl/ Dextrose 250 ml @ 6.488 mls/ hr TITRATE IV Last administered on 10/15/16 11:15; Admin Dose 9.722 MLS/HR; Start 10/12/16 at 17:00 Ondansetron HCl (Zofran Inj) 4 mg Q6H PRN IV NAUSEA AND/OR VOMITING; Start 10/12 at 16:30 Pantoprazole (Protonix Iv) 40 mg DAILY@06 IV Last administered on 10/15/16 06: 00; Admin Dose 40 MG; Start 10/13/16 at 06:00 Furosemide (Lasix) 20 mg DAILY IV Last administered on 10/12/16 21:31; Admin Dose 20 MG; Start 10/12/16 at 21:00 Insulin Aspart (Novolog Insulin Pen) NOVOLOG *MILD* ALGORITHM Q6 SC Last administered on 10/15/16 06:02; Admin Dose 1 UNIT; Start 10/14/16 at 12:00 Miscellaneous Information 1 ea NOTE XX ; Start 10/14/16 at 11:00 Glucose (Glutose) 15 gm Q15M PRN PO DECREASED GLUCOSE; Start 10/14/16 at 11:00 Glucose (Glutose) 22.5 gm Q15M PRN PO DECREASED GLUCOSE; Start 10/14/16 at 11: 00 Dextrose (D50w Syringe) 25 ml Q15M PRN IV DECREASED GLUCOSE; Start 10/14/16 at 11:00 Dextrose (D50w Syringe) 50 ml Q15M PRN IV DECREASED GLUCOSE; Start 10/14/16 at 11:00 Glucagon (Glucagen) 1 mg Q15M PRN IM DECREASED GLUCOSE; Start 10/14/16 at 11:00 Glucose 15 gm 15 gm Q15M PRN BUCCAL DECREASED GLUCOSE; Start 10/14/16 at 11:00 Potassium Chloride (KCl 40 MEQ/250 ML NS) 250 ml @ 62.5 mls/hr ONCE ONCE IVPB Last administered on 10/15/16 11:07; Admin Dose 62.5 MLS/HR; Start 10/15/16 at 10:30; Stop 10/15/16 at 14:29 IV Flush (NS 10 ml) 10 ml PRN PRN IV FLUSH LINE; Start 10/15/16 at 12:00 DEXTER ZAMORANO October 15, 2016 12:40
--- NOTE | 2016-10-15 14:41 | PN ---
Date/Time of Note Date/Time of Note DATE: 10/15/16 TIME: 14:39 Assessment/Plan VTE Prophylaxis VTE Prophylaxis Intervention: SCD's Assessment/Plan Chief Complaint/Hosp Course 1. Cardiac arrest with return of circulation s/p hypothermia protocol Cardiology consultation appreciated 2. Anoxic encephalopathy F/U on EEG results Neurology consultation appreciated, pt not brain Palliative Care consult appreciated 3. Acute respiratory failure secondary to cardiac arrest Continue vent support, pulmonology consultation appreciated 4. History of nonischemic cardiomyopathy with ejection fraction of 25%. 5. History of substance abuse. 6. Anemia, likely secondary to chronic disease. 7. History of schizophrenia. 8. FEN -Replace electrolytes Prophylaxis: Sequential compression devices Problems: Subjective 24 Hr Interval Summary Subjective hx not possible: pt non-verbal Exam/Review of Systems Vital Signs Vitals Vital Signs Date Time Temp Pulse Resp B/P Pulse Ox O2 Delivery O2 Flow Rate FiO2 10/15/16 13:45 68 23 104/61 100 Mechanical Ventilator 10/15/16 11:30 99.7 10/15/16 11:30 40 Intake and Output 10/14/16 10/14/16 10/15/16 15:00 23:00 07:00 Intake Total 1156.128 ml 794.388 ml 831.75 ml Output Total 45 ml 495 ml 303 ml Balance 1111.128 ml 299.388 ml 528.75 ml Exam Constitutional: non-verbal ENMT: intubated Respiratory: clear to auscultation Cardiovascular: regular rate and rhythm Gastrointestinal: soft, No distended Musculoskeletal: nl extremities to inspection Results Result Diagram: 10/15/16 0540 10/15/16 0540 Results 24 hrs Laboratory Tests Test 10/14/16 18:00 10/14/16 23:52 10/15/16 05:36 10/15/16 05:40 Blood Gas Specimen Source Blood arterial Arterial Blood Date Drawn 10/13/2016 2:50:00 PM Arterial Blood pH (Temp corrected) 7.433 Arterial Blood pCO2 (Temp correct) 36.7 Arterial Blood pO2 (Temp corrected) 119.5 H Arterial Blood HCO3 24.9 Arterial Blood Base Excess -0.4 Arterial Blood Oxygen Saturation 98.0 Oleksandr Test ACCEPTAB Arterial Blood Gas Puncture Site Right Radial Arterial Blood Carboxyhemoglobin 0.8 Arterial Blood Methemoglobin 0.1 Blood Gas A-a O2 Differential 127.1 H Oxyhemoglobin Percent 97.1 Total Hemoglobin 13.3 Blood Gas Temperature 33.2 Blood Gas Respiration Rate 16.0 Blood Gas Actual Respiration Rate 21 Blood Gas Modality VENT - AC FiO2 40.0 Blood Gas Tidal Volume 550.0 Blood Gas Low PEEP Setting 5.0 Blood Gas Notified Whom JLD Blood Gas Notified Time 10/13/2016 3:04:00 PM Bedside Glucose 142 152 White Blood Count 12.6 #H Red Blood Count 3.73 L Hemoglobin 10.2 L Hematocrit 33.1 L Mean Corpuscular Volume 88.7 Mean Corpuscular Hemoglobin 27.3 L Mean Corpuscular Hemoglobin Concent 30.8 L Red Cell Distribution Width 19.5 H Platelet Count 215 Mean Platelet Volume 11.0 H Neutrophils % 88.5 H Lymphocytes % 4.1 L Monocytes % 3.5 Eosinophils % 3.2 Basophils % 0.2 Nucleated Red Blood Cells % 0.0 Neutrophils # 11.2 H Lymphocytes # 0.5 L Monocytes # 0.4 Eosinophils # 0.4 Basophils # 0.0 Nucleated Red Blood Cells # 0.0 Sodium Level 142 Potassium Level 3.2 L Chloride Level 109 Carbon Dioxide Level 26 Anion Gap 10 Blood Urea Nitrogen 29 H Creatinine 1.72 H Glucose Level 155 Calcium Level 7.5 L Test 10/15/16 07:00 10/15/16 11:46 Blood Gas Specimen Source Blood arterial Arterial Blood Date Drawn 10/15/2016 7:22:24 AM Arterial Blood pH (Temp corrected) 7.465 H Arterial Blood pCO2 (Temp correct) 36.2 Arterial Blood pO2 (Temp corrected) 118.1 H Arterial Blood HCO3 25.5 Arterial Blood Base Excess 1.8 Arterial Blood Oxygen Saturation 97.7 Oleksandr Test ACCEPTAB Arterial Blood Gas Puncture Site Right Radial Arterial Blood Carboxyhemoglobin 0.4 Arterial Blood Methemoglobin 0.1 Blood Gas A-a O2 Differential 125.5 H Oxyhemoglobin Percent 97.2 Total Hemoglobin 10.7 L Blood Gas Temperature 37.0 Blood Gas Respiration Rate 16.0 Blood Gas Actual Respiration Rate 19 Blood Gas Modality VENT - AC FiO2 40.0 Blood Gas Tidal Volume 500.0 Blood Gas Low PEEP Setting 5.0 Blood Gas Notified Whom JLD Blood Gas Notified Time 10/15/2016 8:33:12 AM Bedside Glucose 114 Medications Medications Current Medications Acetaminophen (Tylenol Supp) 650 mg Q4H PRN [place] TEMP > 37C; Start 10/12/16 at 14: 00 Acetaminophen (Tylenol Liquid) 650 mg Q4H PRN PO TEMP > 37C; Start 10/12/16 at 14:00 Acetaminophen (Tylenol Supp) 500 mg Q6H [place] Last administered on 10/14/16 02:56 ; Admin Dose 500 MG; Start 10/13/16 at 14:00 Acetaminophen (Tylenol Liquid) 500 mg Q6H PO Last administered on 10/13/16 22: 55; Admin Dose 500 MG; Start 10/13/16 at 14:00 Meperidine HCl (Demerol) 12.5 mg Q4H PRN IV POST OPERATIVE SHIVERING; Start 10/12/16 at 14:00 Meperidine HCl (Demerol) 25 mg Q4H PRN IV POST OPERATIVE SHIVERING; Start at 14:00 Eye Lubricant (Akwa Oint) 1 applic Q6 BOTH EYES Last administered on 10/15/16 11:08; Admin Dose 1 APPLIC; Start 10/12/16 at 18:00 Eye Lubricant 2 drop 2 drop Q6 BOTH EYES Last administered on 10/15/16 11:08; Admin Dose 2 DROP; Start 10/12/16 at 18:00 Piperacillin Sod/ Tazobactam Sod 100 ml @ 200 mls/hr Q6 IVPB Last administered on 10/15/16 12:12; Admin Dose 200 MLS/HR; Start 10/12/16 at 19:00 Dopamine HCl/ Dextrose 250 ml @ 6.488 mls/ hr TITRATE IV Last administered on 10/15/16 11:15; Admin Dose 9.722 MLS/HR; Start 10/12/16 at 17:00 Ondansetron HCl (Zofran Inj) 4 mg Q6H PRN IV NAUSEA AND/OR VOMITING; Start 10/12 at 16:30 Pantoprazole (Protonix Iv) 40 mg DAILY@06 IV Last administered on 10/15/16 06: 00; Admin Dose 40 MG; Start 10/13/16 at 06:00 Furosemide (Lasix) 20 mg DAILY IV Last administered on 10/12/16 21:31; Admin Dose 20 MG; Start 10/12/16 at 21:00 Insulin Aspart (Novolog Insulin Pen) NOVOLOG *MILD* ALGORITHM Q6 SC Last administered on 10/15/16t 06:02; Admin Dose 1 UNIT; Start 10/14/16 at 12:00 Miscellaneous Information 1 ea NOTE XX ; Start 10/14/16 at 11:00 Glucose (Glutose) 15 gm Q15M PRN PO DECREASED GLUCOSE; Start 10/14/16 at 11:00 Glucose (Glutose) 22.5 gm Q15M PRN PO DECREASED GLUCOSE; Start 10/14/16 at 11: 00 Dextrose (D50w Syringe) 25 ml Q15M PRN IV DECREASED GLUCOSE; Start 10/14/16 at 11:00 Dextrose (D50w Syringe) 50 ml Q15M PRN IV DECREASED GLUCOSE; Start 10/14/16 at 11:00 Glucagon (Glucagen) 1 mg Q15M PRN IM DECREASED GLUCOSE; Start 10/14/16 at 11:00 Glucose (Glutose) 15 gm Q15M PRN BUCCAL DECREASED GLUCOSE; Start 10/14/16 at 11 :00 IV Flush (NS 10 ml) 10 ml PRN PRN IV FLUSH LINE; Start 10/15/16 at 12:00 TIFFANIE WILSON October 15, 2016 14:41
--- NOTE | 2016-10-15 17:23 | SP ---
DATE OF PROCEDURE: 10/14/2016 ELECTROENCEPHALOGRAM INDICATION: The patient is a 51-year-old gentleman status post cardiopulmonary arrest, unresponsive , intubated. DESCRIPTION OF PROCEDURE: Routine EEG was recorded digitally. [id number] and [id number] archana ages were recorded and reviewed. All impedances were measured and recorded. Cap electrodes were pl aced in accordance with International 10-20 system of electrode placement. According to technologist, the patient exhibits head movements with every respiratory movement. Slow waves with frequency once every 2 seconds, predominantly in frontal regions noticed throughout the recording, likely reflecting respiratory movements. At times, low amplitudes high frequency 14 to 18 per second, beta range activity was seen, which may reflect presence of artifacts or reflected use of medications such as benzodiazepines recently. At times it seems that slow waves 1 to 2 cycl es per second were seen also No epileptiform transients were seen. No signs of ongoing electrographic seizures. No lateralized slowing. IMPRESSION: Grossly abnormal study secondary to diminution of normal electrical brain activity, whi ch was observed only intermittently with slowing of background. Mostly the EEG reflects presence of artifacts of respiratory predominantly. Slowing of background could be secondary to encephalopathy , in patient's case anoxic plus/minus toxic metabolic type. Please correlate clinically. Dictated By: MARYANN BACA/EDILIA Conf#: [id number] DID#: [id number]
--- NOTE | 2016-10-15 20:11 | RADRPT ---
Echocardiogram Report Patient Name: ELVIA KOLB Gender: Male Date: 1965 Study Date: 13-Oct-2016 Television Announcer: Maxine Watson RDCS Location: 110 Ref. Physician: TIFFANIE WILSON Quality: Good Procedures: Transthoracic echocardiogram with complete 2D, M-Mode, and doppler examination. Indications: Cardiac Arrest. 2D/M Mode Doppler Measurement Value Normal Ranges Measurement Value Normal Ranges LVIDd 2D 6.5 3.5 - 5.6 cm AV Peak Ashvin 0.9 m/sec LVIDs 2D 5.9 2.1 - 4.1 cm AV Peak PG 3.5 mmHg LVPWd 2D 0.9 0.6 - 1.1 cm LVOT Peak Ashvin 0.9 m/sec IVSd 2D 0.9 0.6 - 1.1 cm LVOT Peak PG 2.9 mmHg AoR Diam 2D 2.7 2.0 - 3.7 cm MV E Peak Ashvin 1.0 m/sec EDV 2D 216.0 cm3 MV A Peak Ashvin 0.8 m/sec ESV 2D 204.1 cm3 MV E/A 1.2 LA Dimen 2D 4.4 2.3 - 4.0 cm MV Decel Time 146 msec MV Decel [place] 7 MV E/A 1.2 TR Peak Ashvin 2.1 m/sec TR Peak PG 18.0 mmHg RVSP 33.0 mmHg Findings Left Ventricle: Normal left ventricular wall thickness. Mild enlargement of left ventricle cavity. Severe global left ventricular systolic dysfunction. Ejection fraction is visually estimated at 1520 %. Right Ventricle: Moderate enlargement of right ventricle. Moderate right ventricular hypokinesis. Left Atrium: There is moderate enlargement of left atrium. Right Atrium: There is moderate enlargement of right atrium. Mitral Valve: Mitral valve leaflets appear mildly thickened. Mild mitral annular calcification. Mild mitral valve regurgitation. Aortic Valve: No hemodynamically significant aortic stenosis by doppler. Aortic cusps appear mildly calcified. Trace aortic valve regurgitation. Tricuspid Valve: Normal appearance of the tricuspid valve. Estimated peak PA systolic pressure 33 mmHg. There is mild tricuspid regurgitation. Pulmonic Valve: Normal pulmonic valve appearance. There is trace pulmonic regurgitation. Pericardium: Normal pericardium with no significant pericardial effusion. Aorta: Normal aortic root. IVC: Inferior vena cava without respiratory collapse, however, patient on ventilator. Conclusions 1.Normal left ventricular wall thickness. Mild enlargement of left ventricle cavity. Severe global left ventricular systolic dysfunction. Ejection fraction is visually estimated at 15-20 %. 2.Moderate enlargement of right ventricle. Moderate right ventricular hypokinesis. 3.There is moderate enlargement of left atrium. 4.There is moderate enlargement of right atrium. 5.Mild mitral valve regurgitation. 6.Trace aortic valve regurgitation. 7.Estimated peak PA systolic pressure 33 mmHg. There is mild tricuspid regurgitation. 8.Normal pulmonic valve appearance. There is trace pulmonic regurgitation. Electronically Signed By: Tayo Rodríguez 15-Oct-2016 20:11:25 -0700 Patient Name: ELVIA KOLB Study Date: 13-Oct-[id number]
[2016-10-16] VITALS (80 sets, daily range): BP systolic 105–145; BP diastolic 68–99; PULSE 61–82; RESP 12–29
[2016-10-16] MEDS: PIPER-TAZO 3.375 GM IV (PMX) 100 ML IVPB SCH ×5 (00:33→23:42)
[2016-10-16] MEDS: ACETAMINOPHEN 650MG/20.3ML CUP PO SCH ×4 (02:00→20:14)
[2016-10-16] MEDS: ACETAMINOPHEN 650 MG SUPP PR SCH ×4 (02:00→20:00)
[2016-10-16 04:51] LABS: ADD SCAN DIFF NO
[2016-10-16 04:55] LABS: BASOPHILS % 0.2 % (0.0-2.0); EOSINOPHILS # 0.2 10^3/ul (0.0-0.5); EOSINOPHILS % 1.5 % (0.0-7.0); HEMATOCRIT 33.6 % (42.0-52.0); HEMOGLOBIN 10.3 g/dl (14.0-18.0); LYMPHOCYTES % 8.2 % (15.0-51.0); MEAN CORPUSCULAR HEMOGLOBIN 27.2 pg (29.0-33.0); MEAN CORPUSCULAR HGB CONC 30.7 g/dl (32.0-37.0); MEAN CORPUSCULAR VOLUME 88.9 fl (82.0-101.0); MEAN PLATELET VOLUME 10.6 fl (7.4-10.4); MONOCYTE # 0.6 10^3/ul (0.3-0.9); MONOCYTES % 4.8 % (0.0-11.0); NEUTROPHIL # 10.3 10^3/ul (1.6-7.5); NEUTROPHILS % 84.8 % (39.0-77.0); PLATELET COUNT 193 10^3/UL (140-415); RED BLOOD COUNT 3.78 10^6/ul (4.70-6.10); RED CELL DISTRIBUTION WIDTH 19.3 % (11.5-14.5); WHITE BLOOD COUNT 12.2 10^3/ul (4.8-10.8)
[2016-10-16] MEDS: PANTOPRAZOLE 40 MG INJ IV SCH (05:02)
[2016-10-16] MEDS: ARTIFICIAL TEARS 15 ML OPH BOTH EYES SCH ×4 (05:03→23:42)
[2016-10-16] MEDS: OCULAR LUBRICANT 3.5 GM OPH OINT BOTH EYES SCH ×4 (05:03→23:42)
[2016-10-16] MEDS: INSULIN ASPART [NOVOLOG] 3 ML PEN SC SCH ×5 (05:06→23:53)
[2016-10-16 05:21] LABS: POTASSIUM 3.3 mmol/L (3.5-5.1)
[2016-10-16 05:23] LABS: CREATININE 1.29 mg/dl (0.61-1.24)
[2016-10-16 05:24] LABS: PHOSPHORUS 2.5 mg/dl (2.5-4.9)
[2016-10-16 05:25] LABS: MAGNESIUM 2.1 mg/dl (1.7-2.5)
[2016-10-16] MEDS: FUROSEMIDE 20 MG INJ IV SCH (08:18)
[2016-10-16 08:50] LABS: AADO2 Arterial 91.7 mmHg (7.0-24.0); Allen Test ACCEPTAB; Arterial Base Excess 0.3 mmol/L (-3.0-3); Arterial COHb 0.4 % (0.0-3.0); Arterial Fraction of Oxyhgb 97.6 % (93.0-99.0); Arterial MetHb 0.3 % (0.0-1.5); Arterial Total Hemglobin 13.4 g/dl (12.0-18.0); MODE VENT - AC
[2016-10-16] MEDS: DOPamine-D5W 1.6 MG/ML 250 ML IV SCH (09:48)
--- NOTE | 2016-10-16 10:20 | RADRPT ---
PROCEDURE: Chest Radiograph. CLINICAL INDICATION: Pneumonia. CHF. TECHNIQUE: Single frontal chest radiograph. COMPARISON: Chest radiograph 10/15/2016 FINDINGS: An endotracheal tube, nasogastric tube, left upper extremity PICC remain in stable and radiographica lly appropriate position. The heart is magnified. There is improved aeration of the left lung base with persistent left basilar atelectasis or possibly mild infiltrate. A small left pleural effusion may be present.. The bones are intact. IMPRESSION: 1. Improved aeration of the left lung base. 2. Otherwise stable radiographic appearance of chest compared to 10/15/2016. RPTAT: KK .Galo Rodriguez MD, MD Date Time Electronically viewed and signed by .Galo Rodriguez MD, MD on 10/16/2016 10:19 .B/
--- NOTE | 2016-10-16 11:07 | CONS ---
Date/Time of Note Date/Time of Note DATE: 10/16/16 TIME: 11:04 Assessment/Plan Assessment/Plan Chief Complaint/Hosp Course IMPRESSION: 1. Cardiac arrest, currently with a perfusing rhythm on dopamine very low dose 2. Cardiomyopathy with severely depressed left ventricular ejection fraction. 3. Congestive heart failure, systolic, acute on chronic. 4. Respiratory failure, status post intubation. 5. Encephalopathy. 6. Anemia. 7. Cerebral edema. 8. Initial acidosis, improving. 9. History of ventricular tachycardia. 10. History of substance abuse. 11.Encephalopathy-s/p EEG toxic-metabolic REcc: -Tele -serial ecg's -Continue lasix and follow volume status closely -Continue abx's and f/u cx data -Follow MS closely -Merlin wean off dopamine after discussion with neuro Problems: Consultation Date/Type/Reason Admit Date/Time October 12, 2016 at 16:30 Initial Consult Date 10/12/2016 Type of Consultation: Cardiology Reason for Consultation Cardiac arrest Referring Provider: TIFFANIE WILSON Exam/Review of Systems Vital Signs Vitals Vital Signs Date Time Temp Pulse Resp B/P Pulse Ox O2 Delivery O2 Flow Rate FiO2 10/16/16 10:45 66 16 123/81 100 Mechanical Ventilator 10/16/16 09:20 30 10/16/16 09:00 100.2 Intake and Output 10/15/16 10/15/16 10/16/16 15:00 23:00 07:00 Intake Total 537.803 ml 687.747 ml 335.099 ml Output Total 654 ml 482 ml 454 ml Balance -116.197 ml 205.747 ml -118.901 ml Exam Review of Systems: CONSTITUTIONAL: No fevers, chills. PULMONARY: intubated CARDIOVASCULAR: No obvious chest pain/palpitations GASTROINTESTINAL: No nausea/vomiting. GENITOURINARY: No hematuria/dysuria. MUSCULOSKELETAL: No obvious myagias/arthalgias. PSYCHIATRIC: NO documented depression. NEUROLOGIC: Encephalopathic Constitutional: other (encephalopthic) Psych: no complaints Head: normocephalic ENMT: mucosa pink and moist Neck: jvd (9 cm water), supple Respiratory: diminished breath sounds (at bases/B) Cardiovascular: regular rate and rhythm Gastrointestinal: non-tender, soft Musculoskeletal: muscle tone (normal) Extremities: edema (none) Neurological: other (No focal deficits) Results Result Diagram: 10/16/16 0415 10/16/16 0415 Results 24 hrs Laboratory Tests Test 10/15/16 11:46 10/15/16 17:42 10/16/16 00:31 10/16/16 04:15 Bedside Glucose 114 109 115 White Blood Count 12.2 H Red Blood Count 3.78 L Hemoglobin 10.3 L Hematocrit 33.6 L Mean Corpuscular Volume 88.9 Mean Corpuscular Hemoglobin 27.2 L Mean Corpuscular Hemoglobin Concent 30.7 L Red Cell Distribution Width 19.3 H Platelet Count 193 Mean Platelet Volume 10.6 H Neutrophils % 84.8 H Lymphocytes % 8.2 L Monocytes % 4.8 Eosinophils % 1.5 Basophils % 0.2 Nucleated Red Blood Cells % 0.0 Neutrophils # 10.3 H Lymphocytes # 1.0 Monocytes # 0.6 Eosinophils # 0.2 Basophils # 0.0 Nucleated Red Blood Cells # 0.0 Sodium Level 150 H Potassium Level 3.3 L Chloride Level 112 H Carbon Dioxide Level 27 Anion Gap 14 Blood Urea Nitrogen 23 H Creatinine 1.29 H Glucose Level 126 Calcium Level 8.0 L Phosphorus Level 2.5 # Magnesium Level 2.1 Test 10/16/16 05:05 10/16/16 07:00 Bedside Glucose 125 Blood Gas Specimen Source Blood arterial Arterial Blood Date Drawn 10/16/2016 7:15:33 AM Arterial Blood pH (Temp corrected) 7.478 H Arterial Blood pCO2 (Temp correct) 31.8 L Arterial Blood pO2 (Temp corrected) 156.9 H Arterial Blood HCO3 23.0 Arterial Blood Base Excess 0.3 Arterial Blood Oxygen Saturation 98.3 H Oleksandr Test ACCEPTAB Arterial Blood Gas Puncture Site Right Radial Arterial Blood Carboxyhemoglobin 0.4 Arterial Blood Methemoglobin 0.3 Blood Gas A-a O2 Differential 91.7 H Oxyhemoglobin Percent 97.6 Total Hemoglobin 13.4 Blood Gas Temperature 37.0 Blood Gas Respiration Rate 16.0 Blood Gas Actual Respiration Rate 20 Blood Gas Modality VENT - AC FiO2 40.0 Blood Gas Tidal Volume 500.0 Blood Gas Low PEEP Setting 5.0 Blood Gas Notified Whom JLD Blood Gas Notified Time 10/16/2016 8:50:21 AM Medications Medications Current Medications Acetaminophen (Tylenol Supp) 650 mg Q4H PRN [place] TEMP > 37C; Start 10/12/16 at 14: 00 Acetaminophen (Tylenol Liquid) 650 mg Q4H PRN PO TEMP > 37C; Start 10/12/16 at 14:00 Acetaminophen (Tylenol Supp) 500 mg Q6H [place] Last administered on 10/14/16 02:56 ; Admin Dose 500 MG; Start 10/13/16 at 14:00 Acetaminophen (Tylenol Liquid) 500 mg Q6H PO Last administered on 10/16/16 08: 17; Admin Dose 500 MG; Start 10/13/16 at 14:00 Meperidine HCl (Demerol) 12.5 mg Q4H PRN IV POST OPERATIVE SHIVERING; Start 10/12/16 at 14:00 Meperidine HCl (Demerol) 25 mg Q4H PRN IV POST OPERATIVE SHIVERING; Start at 14:00 Eye Lubricant (Akwa Oint) 1 applic Q6 BOTH EYES Last administered on 10/16/16 05:03; Admin Dose 1 APPLIC; Start 10/12/16 at 18:00 Eye Lubricant 2 drop 2 drop Q6 BOTH EYES Last administered on 10/16/16 05:03; Admin Dose 2 DROP; Start 10/12/16 at 18:00 Piperacillin Sod/ Tazobactam Sod 100 ml @ 200 mls/hr Q6 IVPB Last administered on 10/16/16 05:02; Admin Dose 200 MLS/HR; Start 10/12/16 at 19:00 Dopamine HCl/ Dextrose 250 ml @ 6.488 mls/ hr TITRATE IV Last administered on 10/16/16 09:48; Admin Dose 9.731 MLS/HR; Start 10/12/16 at 17:00 Ondansetron HCl (Zofran Inj) 4 mg Q6H PRN IV NAUSEA AND/OR VOMITING; Start 10/12 at 16:30 Pantoprazole (Protonix Iv) 40 mg DAILY@06 IV Last administered on 10/16/16 05: 02; Admin Dose 40 MG; Start 10/13/16 at 06:00 Furosemide (Lasix) 20 mg DAILY IV Last administered on 10/16/16 08:18; Admin Dose 20 MG; Start 10/12/16 at 21:00 Insulin Aspart (Novolog Insulin Pen) NOVOLOG *MILD* ALGORITHM Q6 SC Last administered on 10/15/16t 06:02; Admin Dose 1 UNIT; Start 10/14/16 at 12:00 Miscellaneous Information 1 ea NOTE XX ; Start 10/14/16 at 11:00 Glucose (Glutose) 15 gm Q15M PRN PO DECREASED GLUCOSE; Start 10/14/16 at 11:00 Glucose (Glutose) 22.5 gm Q15M PRN PO DECREASED GLUCOSE; Start 10/14/16 at 11: 00 Dextrose (D50w Syringe) 25 ml Q15M PRN IV DECREASED GLUCOSE; Start 10/14/16 at 11:00 Dextrose (D50w Syringe) 50 ml Q15M PRN IV DECREASED GLUCOSE; Start 10/14/16 at 11:00 Glucagon (Glucagen) 1 mg Q15M PRN IM DECREASED GLUCOSE; Start 10/14/16 at 11:00 Glucose (Glutose) 15 gm Q15M PRN BUCCAL DECREASED GLUCOSE; Start 10/14/16 at 11 :00 IV Flush (NS 10 ml) 10 ml PRN PRN IV FLUSH LINE; Start 10/15/16 at 12:00 DEXTER ZAOMRANO October 16, 2016 11:07
[2016-10-16] MEDS ORDERED: POTASSIUM CHLORIDE 250 ML IVPB ONE (12:00)
--- NOTE | 2016-10-16 13:57 | CONS ---
Date/Time of Note Date/Time of Note DATE: 10/16/16 TIME: 13:55 Consult Date/Type/Reason Admit Date/Time October 12, 2016 at 16:30 Type of Consultation: Pulmonary ICU Ordering Provider: TIFFANIE WILSON Subjective Patient's condition remains unchanged febrile this morning Remains somnolent on mechanical ventilation Objective Vital Signs Date Time Temp Pulse Resp B/P Pulse Ox O2 Delivery O2 Flow Rate FiO2 10/16/16 13:30 68 19 119/76 99 Mechanical Ventilator 10/16/16 13:06 30 10/16/16 09:00 100.2 Intake and Output 10/15/16 10/15/16 10/16/16 15:00 23:00 07:00 Intake Total 537.803 ml 687.747 ml 335.099 ml Output Total 654 ml 482 ml 454 ml Balance -116.197 ml 205.747 ml -118.901 ml Exam PHYSICAL EXAMINATION: GENERAL: Elderly-appearing gentleman, intubated on mechanical ventilation. VITAL SIGNS: As above HEENT: Pupils are nonreactive CARDIAC: S1, S2, no added sounds or murmurs. CHEST: Diminished air entry bilaterally. ABDOMEN: Soft, nontender. No guarding or rebound. EXTREMITIES: No cyanosis, clubbing, edema +1 NEUROLOGIC: Unable to assess. Results/Medications Result Diagram: 10/16/16 0415 10/16/16 0415 Results 24 hrs Laboratory Tests Test 10/15/16 17:42 10/16/16 00:31 10/16/16 04:15 10/16/16 05:05 Bedside Glucose 109 115 125 White Blood Count 12.2 H Red Blood Count 3.78 L Hemoglobin 10.3 L Hematocrit 33.6 L Mean Corpuscular Volume 88.9 Mean Corpuscular Hemoglobin 27.2 L Mean Corpuscular Hemoglobin Concent 30.7 L Red Cell Distribution Width 19.3 H Platelet Count 193 Mean Platelet Volume 10.6 H Neutrophils % 84.8 H Lymphocytes % 8.2 L Monocytes % 4.8 Eosinophils % 1.5 Basophils % 0.2 Nucleated Red Blood Cells % 0.0 Neutrophils # 10.3 H Lymphocytes # 1.0 Monocytes # 0.6 Eosinophils # 0.2 Basophils # 0.0 Nucleated Red Blood Cells # 0.0 Sodium Level 150 H Potassium Level 3.3 L Chloride Level 112 H Carbon Dioxide Level 27 Anion Gap 14 Blood Urea Nitrogen 23 H Creatinine 1.29 H Glucose Level 126 Calcium Level 8.0 L Phosphorus Level 2.5 # Magnesium Level 2.1 Test 10/16/16 07:00 10/16/16 11:29 Blood Gas Specimen Source Blood arterial Arterial Blood Date Drawn 10/16/2016 7:15:33 AM Arterial Blood pH (Temp corrected) 7.478 H Arterial Blood pCO2 (Temp correct) 31.8 L Arterial Blood pO2 (Temp corrected) 156.9 H Arterial Blood HCO3 23.0 Arterial Blood Base Excess 0.3 Arterial Blood Oxygen Saturation 98.3 H Oleksandr Test ACCEPTAB Arterial Blood Gas Puncture Site Right Radial Arterial Blood Carboxyhemoglobin 0.4 Arterial Blood Methemoglobin 0.3 Blood Gas A-a O2 Differential 91.7 H Oxyhemoglobin Percent 97.6 Total Hemoglobin 13.4 Blood Gas Temperature 37.0 Blood Gas Respiration Rate 16.0 Blood Gas Actual Respiration Rate 20 Blood Gas Modality VENT - AC FiO2 40.0 Blood Gas Tidal Volume 500.0 Blood Gas Low PEEP Setting 5.0 Blood Gas Notified Whom JLD Blood Gas Notified Time 10/16/2016 8:50:21 AM Bedside Glucose 138 Medications Current Medications Acetaminophen (Tylenol Supp) 650 mg Q4H PRN [place] TEMP > 37C; Start 10/12/16 at 14: 00 Acetaminophen (Tylenol Liquid) 650 mg Q4H PRN PO TEMP > 37C; Start 10/12/16 at 14:00 Acetaminophen (Tylenol Supp) 500 mg Q6H [place] Last administered on 10/14/16 02:56 ; Admin Dose 500 MG; Start 10/13/16 at 14:00 Acetaminophen (Tylenol Liquid) 500 mg Q6H PO Last administered on 10/16/16 13: 03; Admin Dose 500 MG; Start 10/13/16 at 14:00 Meperidine HCl (Demerol) 12.5 mg Q4H PRN IV POST OPERATIVE SHIVERING; Start 10/12/16 at 14:00 Meperidine HCl (Demerol) 25 mg Q4H PRN IV POST OPERATIVE SHIVERING; Start at 14:00 Eye Lubricant (Akwa Oint) 1 applic Q6 BOTH EYES Last administered on 10/16/16 11:37; Admin Dose 1 APPLIC; Start 10/12/16 at 18:00 Eye Lubricant 2 drop 2 drop Q6 BOTH EYES Last administered on 10/16/16 11:37; Admin Dose 2 DROP; Start 10/12/16 at 18:00 Piperacillin Sod/ Tazobactam Sod 100 ml @ 200 mls/hr Q6 IVPB Last administered on 10/16/16 11:37; Admin Dose 200 MLS/HR; Start 10/12/16 at 19:00 Dopamine HCl/ Dextrose 250 ml @ 6.488 mls/ hr TITRATE IV Last administered on 10/16/16 09:48; Admin Dose 9.731 MLS/HR; Start 10/12/16 at 17:00 Ondansetron HCl (Zofran Inj) 4 mg Q6H PRN IV NAUSEA AND/OR VOMITING; Start 10/12 at 16:30 Pantoprazole (Protonix Iv) 40 mg DAILY@06 IV Last administered on 10/16/16 05: 02; Admin Dose 40 MG; Start 10/13/16 at 06:00 Furosemide (Lasix) 20 mg DAILY IV Last administered on 10/16/16 08:18; Admin Dose 20 MG; Start 10/12/16 at 21:00 Insulin Aspart (Novolog Insulin Pen) NOVOLOG *MILD* ALGORITHM Q6 SC Last administered on 10/15/16 06:02; Admin Dose 1 UNIT; Start 10/14/16 at 12:00 Miscellaneous Information 1 ea NOTE XX ; Start 10/14/16 at 11:00 Glucose (Glutose) 15 gm Q15M PRN PO DECREASED GLUCOSE; Start 10/14/16 at 11:00 Glucose (Glutose) 22.5 gm Q15M PRN PO DECREASED GLUCOSE; Start 10/14/16 at 11: 00 Dextrose (D50w Syringe) 25 ml Q15M PRN IV DECREASED GLUCOSE; Start 10/14/16 at 11:00 Dextrose (D50w Syringe) 50 ml Q15M PRN IV DECREASED GLUCOSE; Start 10/14/16 at 11:00 Glucagon (Glucagen) 1 mg Q15M PRN IM DECREASED GLUCOSE; Start 10/14/16 at 11:00 Glucose (Glutose) 15 gm Q15M PRN BUCCAL DECREASED GLUCOSE; Start 10/14/16 at 11 :00 IV Flush 10 ml 10 ml PRN PRN IV FLUSH LINE; Start 10/15/16 at 12:00 Potassium Chloride (KCl 40 MEQ/250 ML NS) 250 ml @ 62.5 mls/hr ONCE ONCE IVPB Last administered on 10/16/16t 12:12; Admin Dose 62.5 MLS/HR; Start 10/16/16 at 12:00; Stop 10/16/16 at 15:59 Assessment/Plan Chief Complaint/Hosp Course IMPRESSION AND PLAN: 1. Cardiopulmonary arrest. 2. Possible aspiration pneumonia. 3. Severe anoxic brain injury 4. History of congestive heart failure and atrial fibrillation. Decreased ejection fraction 5. History of substance abuse PLAN: 1. Continue mechanical ventilation. 2. Broad-spectrum antibiotics, for aspiration pneumonia 3. Decrease minute ventilation has respiratory alkalosis 4. Start tube feeding once off paralytics 5. Family considering goals of care wish to continue current measures Disposition Continue ICU care Prognosis very poor Problems: TRUNG LORA MD, [facility] October 16, 2016 13:57
--- NOTE | 2016-10-16 15:41 | PN ---
Date/Time of Note Date/Time of Note DATE: 10/16/16 TIME: 15:39 Assessment/Plan VTE Prophylaxis VTE Prophylaxis Intervention: SCD's Assessment/Plan Chief Complaint/Hosp Course 1. Cardiac arrest with return of circulation s/p hypothermia protocol Cardiology consultation appreciated 2. Anoxic encephalopathy EEG shows anoxic encephalopathy Neurology consultation appreciated, pt not brain Palliative Care consult appreciated 3. Acute respiratory failure secondary to cardiac arrest Continue vent support, pulmonology consultation appreciated 4. History of nonischemic cardiomyopathy with ejection fraction of 25%. 5. History of substance abuse. 6. Anemia, likely secondary to chronic disease. 7. History of schizophrenia. 8. FEN -Replace electrolytes Prophylaxis: Sequential compression devices Problems: Subjective 24 Hr Interval Summary Subjective hx not possible: pt non-verbal Exam/Review of Systems Vital Signs Vitals Vital Signs Date Time Temp Pulse Resp B/P Pulse Ox O2 Delivery O2 Flow Rate FiO2 10/16/16 15:05 69 17 100 30 10/16/16 14:30 110/77 Mechanical Ventilator 10/16/16 09:00 100.2 Intake and Output 10/15/16 10/15/16 10/16/16 15:00 23:00 07:00 Intake Total 537.803 ml 687.747 ml 335.099 ml Output Total 654 ml 482 ml 454 ml Balance -116.197 ml 205.747 ml -118.901 ml Exam Constitutional: non-verbal Respiratory: clear to auscultation Cardiovascular: regular rate and rhythm Gastrointestinal: soft, No distended Musculoskeletal: nl extremities to inspection Results Result Diagram: 10/16/16 0415 10/16/16 0415 Results 24 hrs Laboratory Tests Test 10/15/16 17:42 10/16/16 00:31 10/16/16 04:15 10/16/16 05:05 Bedside Glucose 109 115 125 White Blood Count 12.2 H Red Blood Count 3.78 L Hemoglobin 10.3 L Hematocrit 33.6 L Mean Corpuscular Volume 88.9 Mean Corpuscular Hemoglobin 27.2 L Mean Corpuscular Hemoglobin Concent 30.7 L Red Cell Distribution Width 19.3 H Platelet Count 193 Mean Platelet Volume 10.6 H Neutrophils % 84.8 H Lymphocytes % 8.2 L Monocytes % 4.8 Eosinophils % 1.5 Basophils % 0.2 Nucleated Red Blood Cells % 0.0 Neutrophils # 10.3 H Lymphocytes # 1.0 Monocytes # 0.6 Eosinophils # 0.2 Basophils # 0.0 Nucleated Red Blood Cells # 0.0 Sodium Level 150 H Potassium Level 3.3 L Chloride Level 112 H Carbon Dioxide Level 27 Anion Gap 14 Blood Urea Nitrogen 23 H Creatinine 1.29 H Glucose Level 126 Calcium Level 8.0 L Phosphorus Level 2.5 # Magnesium Level 2.1 Test 10/16/16 07:00 10/16/16 11:29 Blood Gas Specimen Source Blood arterial Arterial Blood Date Drawn 10/16/2016 7:15:33 AM Arterial Blood pH (Temp corrected) 7.478 H Arterial Blood pCO2 (Temp correct) 31.8 L Arterial Blood pO2 (Temp corrected) 156.9 H Arterial Blood HCO3 23.0 Arterial Blood Base Excess 0.3 Arterial Blood Oxygen Saturation 98.3 H Oleksandr Test ACCEPTAB Arterial Blood Gas Puncture Site Right Radial Arterial Blood Carboxyhemoglobin 0.4 Arterial Blood Methemoglobin 0.3 Blood Gas A-a O2 Differential 91.7 H Oxyhemoglobin Percent 97.6 Total Hemoglobin 13.4 Blood Gas Temperature 37.0 Blood Gas Respiration Rate 16.0 Blood Gas Actual Respiration Rate 20 Blood Gas Modality VENT - AC FiO2 40.0 Blood Gas Tidal Volume 500.0 Blood Gas Low PEEP Setting 5.0 Blood Gas Notified Whom JLD Blood Gas Notified Time 10/16/2016 8:50:21 AM Bedside Glucose 138 Medications Medications Current Medications Acetaminophen (Tylenol Supp) 650 mg Q4H PRN [place] TEMP > 37C; Start 10/12/16 at 14: 00 Acetaminophen (Tylenol Liquid) 650 mg Q4H PRN PO TEMP > 37C; Start 10/12/16 at 14:00 Acetaminophen (Tylenol Supp) 500 mg Q6H [place] Last administered on 10/14/16 02:56 ; Admin Dose 500 MG; Start 10/13/16 at 14:00 Acetaminophen (Tylenol Liquid) 500 mg Q6H PO Last administered on 10/16/16 13: 03; Admin Dose 500 MG; Start 10/13/16 at 14:00 Meperidine HCl (Demerol) 12.5 mg Q4H PRN IV POST OPERATIVE SHIVERING; Start 10/12/16 at 14:00 Meperidine HCl (Demerol) 25 mg Q4H PRN IV POST OPERATIVE SHIVERING; Start at 14:00 Eye Lubricant (Akwa Oint) 1 applic Q6 BOTH EYES Last administered on 10/16/16 11:37; Admin Dose 1 APPLIC; Start 10/12/16 at 18:00 Eye Lubricant 2 drop 2 drop Q6 BOTH EYES Last administered on 10/16/16 11:37; Admin Dose 2 DROP; Start 10/12/16 at 18:00 Piperacillin Sod/ Tazobactam Sod 100 ml @ 200 mls/hr Q6 IVPB Last administered on 10/16/16 11:37; Admin Dose 200 MLS/HR; Start 10/12/16 at 19:00 Dopamine HCl/ Dextrose 250 ml @ 6.488 mls/ hr TITRATE IV Last administered on 10/16/16 09:48; Admin Dose 9.731 MLS/HR; Start 10/12/16 at 17:00 Ondansetron HCl (Zofran Inj) 4 mg Q6H PRN IV NAUSEA AND/OR VOMITING; Start 10/12 at 16:30 Pantoprazole (Protonix Iv) 40 mg DAILY@06 IV Last administered on 10/16/16 05: 02; Admin Dose 40 MG; Start 10/13/16 at 06:00 Furosemide (Lasix) 20 mg DAILY IV Last administered on 10/16/16 08:18; Admin Dose 20 MG; Start 10/12/16 at 21:00 Insulin Aspart (Novolog Insulin Pen) NOVOLOG *MILD* ALGORITHM Q6 SC Last administered on 10/15/16 06:02; Admin Dose 1 UNIT; Start 10/14/16 at 12:00 Miscellaneous Information 1 ea NOTE XX ; Start 10/14/16 at 11:00 Glucose (Glutose) 15 gm Q15M PRN PO DECREASED GLUCOSE; Start 10/14/16 at 11:00 Glucose (Glutose) 22.5 gm Q15M PRN PO DECREASED GLUCOSE; Start 10/14/16 at 11: 00 Dextrose (D50w Syringe) 25 ml Q15M PRN IV DECREASED GLUCOSE; Start 10/14/16 at 11:00 Dextrose (D50w Syringe) 50 ml Q15M PRN IV DECREASED GLUCOSE; Start 10/14/16 at 11:00 Glucagon (Glucagen) 1 mg Q15M PRN IM DECREASED GLUCOSE; Start 10/14/16 at 11:00 Glucose (Glutose) 15 gm Q15M PRN BUCCAL DECREASED GLUCOSE; Start 10/14/16 at 11 :00 IV Flush 10 ml 10 ml PRN PRN IV FLUSH LINE; Start 10/15/16 at 12:00 Potassium Chloride (KCl 40 MEQ/250 ML NS) 250 ml @ 62.5 mls/hr ONCE ONCE IVPB Last administered on 10/16/16t 12:12; Admin Dose 62.5 MLS/HR; Start 10/16/16 at 12:00; Stop 10/16/16 at 15:59 TIFFANIE WILSON October 16, 2016 15:41
[2016-10-17] VITALS (93 sets, daily range): BP systolic 105–134; BP diastolic 65–94; PULSE 60–80; RESP 11–29
[2016-10-17] MEDS: ACETAMINOPHEN 650 MG SUPP PR SCH ×4 (01:48→20:00)
[2016-10-17] MEDS: ACETAMINOPHEN 650MG/20.3ML CUP PO SCH ×4 (01:56→20:18)
[2016-10-17 05:12] LABS: ADD SCAN DIFF NO
[2016-10-17] MEDS: PIPER-TAZO 3.375 GM IV (PMX) 100 ML IVPB SCH ×4 (05:17→23:16)
[2016-10-17] MEDS: PANTOPRAZOLE 40 MG INJ IV SCH (05:17)
[2016-10-17] MEDS: ARTIFICIAL TEARS 15 ML OPH BOTH EYES SCH ×4 (05:18→23:16)
[2016-10-17] MEDS: OCULAR LUBRICANT 3.5 GM OPH OINT BOTH EYES SCH ×4 (05:18→23:16)
[2016-10-17 05:24] LABS: BASOPHILS % 0.2 % (0.0-2.0); EOSINOPHILS # 0.5 10^3/ul (0.0-0.5); HEMATOCRIT 34.9 % (42.0-52.0); HEMOGLOBIN 10.6 g/dl (14.0-18.0); LYMPHOCYTES # 1.1 10^3/ul (0.8-2.9); LYMPHOCYTES % 9.7 % (15.0-51.0); MEAN CORPUSCULAR HEMOGLOBIN 27.2 pg (29.0-33.0); MEAN CORPUSCULAR HGB CONC 30.4 g/dl (32.0-37.0); MEAN CORPUSCULAR VOLUME 89.5 fl (82.0-101.0); MEAN PLATELET VOLUME 10.4 fl (7.4-10.4); MONOCYTE # 0.7 10^3/ul (0.3-0.9); MONOCYTES % 6.5 % (0.0-11.0); NEUTROPHIL # 8.9 10^3/ul (1.6-7.5); PLATELET COUNT 215 10^3/UL (140-415); RED CELL DISTRIBUTION WIDTH 18.8 % (11.5-14.5); WHITE BLOOD COUNT 11.3 10^3/ul (4.8-10.8)
[2016-10-17] MEDS: INSULIN ASPART [NOVOLOG] 3 ML PEN SC SCH ×3 (06:00→17:30)
[2016-10-17 06:03] LABS: POTASSIUM 3.4 mmol/L (3.5-5.1)
[2016-10-17 06:05] LABS: CREATININE 1.07 mg/dl (0.61-1.24)
[2016-10-17 06:06] LABS: CALCIUM 8.5 mg/dl (8.4-10.2); MAGNESIUM 1.9 mg/dl (1.7-2.5); PHOSPHORUS 2.5 mg/dl (2.5-4.9)
[2016-10-17] MEDS: FUROSEMIDE 20 MG INJ IV SCH (08:02)
[2016-10-17] MEDS ORDERED: POTASSIUM CHLORIDE 250 ML IVPB ONE (09:30)
--- NOTE | 2016-10-17 11:19 | RADRPT ---
PROCEDURE: XR Chest. CLINICAL INDICATION: Pneumonia, CHF TECHNIQUE: Single frontal chest x-ray. COMPARISON: 10/16/2016 FINDINGS: Endotracheal tube, nasogastric tube, and left-sided PICC line remain in place. No acute infiltrate, pleural effusion or pneumothorax is identified. There is stable borderline cardiomegaly. The osse ous structures are unremarkable. IMPRESSION: 1. No evidence of acute cardiopulmonary process. 2. Stable borderline cardiomegaly. 3. Lines and tubes remain in place. RPTAT: QQ .Tesfaye Dave MD, MD Date Time Electronically viewed and signed by .Tesfaye Dave MD, MD on 10/17/2016 11:19 .R/
--- NOTE | 2016-10-17 12:23 | CONS ---
Date/Time of Note Date/Time of Note DATE: 10/17/16 TIME: 12:20 Consult Date/Type/Reason Admit Date/Time October 12, 2016 at 16:30 Initial Consult Date Type of Consultation: Pulmonary ICU Ordering Provider: TIFFANIE WILSON Subjective Unresponsive on vent. Flaccid, though breathing above set rate and + corneal reflex Objective Vital Signs Date Time Temp Pulse Resp B/P Pulse Ox O2 Delivery O2 Flow Rate FiO2 10/17/16 11:25 73 19 100 30 10/17/16 11:00 126/80 Mechanical Ventilator 10/17/16 08:00 99.7 Intake and Output 10/16/16 10/16/16 10/17/16 15:00 23:00 07:00 Intake Total 418.390 ml 411.964 ml 532.0 ml Output Total 1962 ml 416 ml 444 ml Balance -1543.610 ml -4.036 ml 88.0 ml Exam HEENT: Pupils are nonreactive CARDIAC: S1, S2, no added sounds or murmurs. CHEST: Diminished air entry bilaterally. ABDOMEN: Soft, nontender. No guarding or rebound. EXTREMITIES: No cyanosis, clubbing, edema +1 Results/Medications Result Diagram: 10/17/16 0450 10/17/16 0450 Results 24 hrs Laboratory Tests Test 10/16/16 18:09 10/16/16 23:53 10/17/16 04:50 10/17/16 06:09 Bedside Glucose 139 132 125 White Blood Count 11.3 H Red Blood Count 3.90 L Hemoglobin 10.6 L Hematocrit 34.9 L Mean Corpuscular Volume 89.5 Mean Corpuscular Hemoglobin 27.2 L Mean Corpuscular Hemoglobin Concent 30.4 L Red Cell Distribution Width 18.8 H Platelet Count 215 Mean Platelet Volume 10.4 Neutrophils % 79.0 H Lymphocytes % 9.7 L Monocytes % 6.5 Eosinophils % 4.0 Basophils % 0.2 Nucleated Red Blood Cells % 0.0 Neutrophils # 8.9 H Lymphocytes # 1.1 Monocytes # 0.7 Eosinophils # 0.5 Basophils # 0.0 Nucleated Red Blood Cells # 0.0 Sodium Level 150 H Potassium Level 3.4 L Chloride Level 115 H Carbon Dioxide Level 28 Anion Gap 10 Blood Urea Nitrogen 18 Creatinine 1.07 Glucose Level 144 Calcium Level 8.5 Phosphorus Level 2.5 Magnesium Level 1.9 Test 10/17/16 11:35 Bedside Glucose 133 Medications Current Medications Acetaminophen (Tylenol Supp) 650 mg Q4H PRN [place] TEMP > 37C; Start 10/12/16 at 14: 00 Acetaminophen (Tylenol Liquid) 650 mg Q4H PRN PO TEMP > 37C; Start 10/12/16 at 14:00 Acetaminophen (Tylenol Supp) 500 mg Q6H [place] Last administered on 10/14/16 02:56 ; Admin Dose 500 MG; Start 10/13/16 at 14:00 Acetaminophen (Tylenol Liquid) 500 mg Q6H PO Last administered on 10/17/16 08: 02; Admin Dose 500 MG; Start 10/13/16 at 14:00 Meperidine HCl (Demerol) 12.5 mg Q4H PRN IV POST OPERATIVE SHIVERING; Start 10/12/16 at 14:00 Meperidine HCl (Demerol) 25 mg Q4H PRN IV POST OPERATIVE SHIVERING; Start at 14:00 Eye Lubricant (Akwa Oint) 1 applic Q6 BOTH EYES Last administered on 10/17/16 11:40; Admin Dose 1 APPLIC; Start 10/12/16 at 18:00 Eye Lubricant 2 drop 2 drop Q6 BOTH EYES Last administered on 10/17/16 11:40; Admin Dose 2 DROP; Start 10/12/16 at 18:00 Piperacillin Sod/ Tazobactam Sod 100 ml @ 200 mls/hr Q6 IVPB Last administered on 10/17/16 11:40; Admin Dose 200 MLS/HR; Start 10/12/16 at 19:00 Dopamine HCl/ Dextrose 250 ml @ 6.488 mls/ hr TITRATE IV Last administered on 10/16/16 09:48; Admin Dose 9.731 MLS/HR; Start 10/12/16 at 17:00 Ondansetron HCl (Zofran Inj) 4 mg Q6H PRN IV NAUSEA AND/OR VOMITING; Start 10/12 at 16:30 Pantoprazole (Protonix Iv) 40 mg DAILY@06 IV Last administered on 10/17/16 05: 17; Admin Dose 40 MG; Start 10/13/16 at 06:00 Furosemide (Lasix) 20 mg DAILY IV Last administered on 10/17/16 08:02; Admin Dose 20 MG; Start 10/12/16 at 21:00 Insulin Aspart (Novolog Insulin Pen) NOVOLOG *MILD* ALGORITHM Q6 SC Last administered on 10/15/16 06:02; Admin Dose 1 UNIT; Start 10/14/16 at 12:00 Miscellaneous Information 1 ea NOTE XX ; Start 10/14/16 at 11:00 Glucose (Glutose) 15 gm Q15M PRN PO DECREASED GLUCOSE; Start 10/14/16 at 11:00 Glucose (Glutose) 22.5 gm Q15M PRN PO DECREASED GLUCOSE; Start 10/14/16 at 11: 00 Dextrose (D50w Syringe) 25 ml Q15M PRN IV DECREASED GLUCOSE; Start 10/14/16 at 11:00 Dextrose (D50w Syringe) 50 ml Q15M PRN IV DECREASED GLUCOSE; Start 10/14/16 at 11:00 Glucagon (Glucagen) 1 mg Q15M PRN IM DECREASED GLUCOSE; Start 10/14/16 at 11:00 Glucose (Glutose) 15 gm Q15M PRN BUCCAL DECREASED GLUCOSE; Start 10/14/16 at 11 :00 IV Flush 10 ml 10 ml PRN PRN IV FLUSH LINE; Start 10/15/16 at 12:00 Potassium Chloride (KCl 40 MEQ/250 ML NS) 250 ml @ 62.5 mls/hr ONCE ONCE IVPB Last administered on 10/17/16 10:14; Admin Dose 62.5 MLS/HR; Start 10/17/16 at 09:30; Stop 10/17/16 at 13:29 Assessment/Plan Additional Assessment/Plan IMPRESSION: 1. s/p Cardiopulmonary arrest. 2. Severe Anoxic Brain Injury 3. CHF 4. Afib 5. History of substance abuse RECS: 1. Continue mechanical ventilation. 2. De-escalate abx 3. Keep off sedatives 4. Goals of care to be discussed with next of kin, as potential for meaningful recovery is nil 35 min cc time VITO HEAD MD October 17, 2016 12:23
--- NOTE | 2016-10-17 13:15 | CONS ---
Date/Time of Note Date/Time of Note DATE: 10/17/16 TIME: 13:08 Assessment/Plan Assessment/Plan Additional Assessment/Plan S/p Cardiac arrest Ventricular tachycardia Cardiogenic Shock on Dopamine Cardiomegaly Severe acute on chronic congestive heart failure Acute encephalopathy Anemia VDRF Anemia Substance abuse Hemodynamically unstable on Dopamine Wean dopamine if MAP > 60mmHg Continue Vent Support and aggressive pulmonary Toiletry Continue Nebs as scheduled Continue Lasix Continue Antibiotics Continue Insulin Continue GI and DVT Prophylaxis Consultation Date/Type/Reason Admit Date/Time October 12, 2016 at 16:30 Psychological: no complaints Past Surgical History Past Surgical Hx: other Social History Smoking Status: Former smoker Exam/Review of Systems Vital Signs Vitals Vital Signs Date Time Temp Pulse Resp B/P Pulse Ox O2 Delivery O2 Flow Rate FiO2 10/17/16 11:25 73 19 100 30 10/17/16 11:00 126/80 Mechanical Ventilator 10/17/16 08:00 99.7 Intake and Output 10/16/16 10/16/16 10/17/16 15:00 23:00 07:00 Intake Total 418.390 ml 411.964 ml 532.0 ml Output Total 1962 ml 416 ml 444 ml Balance -1543.610 ml -4.036 ml 88.0 ml Exam Intubated Neck No JVD CVS RRR, No m/r/g Chest Mechanical breath sounds heard bilaterally Abdomen BS present no organomegaly Ext No pedal edema Results Result Diagram: 10/17/16 0450 10/17/16 0450 Results 24 hrs Laboratory Tests Test 10/16/16 18:09 10/16/16 23:53 10/17/16 04:50 10/17/16 06:09 Bedside Glucose 139 132 125 White Blood Count 11.3 H Red Blood Count 3.90 L Hemoglobin 10.6 L Hematocrit 34.9 L Mean Corpuscular Volume 89.5 Mean Corpuscular Hemoglobin 27.2 L Mean Corpuscular Hemoglobin Concent 30.4 L Red Cell Distribution Width 18.8 H Platelet Count 215 Mean Platelet Volume 10.4 Neutrophils % 79.0 H Lymphocytes % 9.7 L Monocytes % 6.5 Eosinophils % 4.0 Basophils % 0.2 Nucleated Red Blood Cells % 0.0 Neutrophils # 8.9 H Lymphocytes # 1.1 Monocytes # 0.7 Eosinophils # 0.5 Basophils # 0.0 Nucleated Red Blood Cells # 0.0 Sodium Level 150 H Potassium Level 3.4 L Chloride Level 115 H Carbon Dioxide Level 28 Anion Gap 10 Blood Urea Nitrogen 18 Creatinine 1.07 Glucose Level 144 Calcium Level 8.5 Phosphorus Level 2.5 Magnesium Level 1.9 Test 10/17/16 11:35 Bedside Glucose 133 Medications Medications Current Medications Acetaminophen (Tylenol Supp) 650 mg Q4H PRN [place] TEMP > 37C; Start 10/12/16 at 14: 00 Acetaminophen (Tylenol Liquid) 650 mg Q4H PRN PO TEMP > 37C; Start 10/12/16 at 14:00 Acetaminophen (Tylenol Supp) 500 mg Q6H [place] Last administered on 10/14/16 02:56 ; Admin Dose 500 MG; Start 10/13/16 at 14:00 Acetaminophen (Tylenol Liquid) 500 mg Q6H PO Last administered on 10/17/16 08: 02; Admin Dose 500 MG; Start 10/13/16 at 14:00 Meperidine HCl (Demerol) 12.5 mg Q4H PRN IV POST OPERATIVE SHIVERING; Start 10/12/16 at 14:00 Meperidine HCl (Demerol) 25 mg Q4H PRN IV POST OPERATIVE SHIVERING; Start at 14:00 Eye Lubricant (Akwa Oint) 1 applic Q6 BOTH EYES Last administered on 10/17/16 11:40; Admin Dose 1 APPLIC; Start 10/12/16 at 18:00 Eye Lubricant 2 drop 2 drop Q6 BOTH EYES Last administered on 10/17/16 11:40; Admin Dose 2 DROP; Start 10/12/16 at 18:00 Piperacillin Sod/ Tazobactam Sod 100 ml @ 200 mls/hr Q6 IVPB Last administered on 10/17/16 11:40; Admin Dose 200 MLS/HR; Start 10/12/16 at 19:00 Dopamine HCl/ Dextrose 250 ml @ 6.488 mls/ hr TITRATE IV Last administered on 10/16/16 09:48; Admin Dose 9.731 MLS/HR; Start 10/12/16 at 17:00 Ondansetron HCl (Zofran Inj) 4 mg Q6H PRN IV NAUSEA AND/OR VOMITING; Start 10/12 at 16:30 Pantoprazole (Protonix Iv) 40 mg DAILY@06 IV Last administered on 10/17/16 05: 17; Admin Dose 40 MG; Start 10/13/16 at 06:00 Furosemide (Lasix) 20 mg DAILY IV Last administered on 10/17/16 08:02; Admin Dose 20 MG; Start 10/12/16 at 21:00 Insulin Aspart (Novolog Insulin Pen) NOVOLOG *MILD* ALGORITHM Q6 SC Last administered on 10/15/16 06:02; Admin Dose 1 UNIT; Start 10/14/16 at 12:00 Miscellaneous Information 1 ea NOTE XX ; Start 10/14/16 at 11:00 Glucose (Glutose) 15 gm Q15M PRN PO DECREASED GLUCOSE; Start 10/14/16 at 11:00 Glucose (Glutose) 22.5 gm Q15M PRN PO DECREASED GLUCOSE; Start 10/14/16 at 11: 00 Dextrose (D50w Syringe) 25 ml Q15M PRN IV DECREASED GLUCOSE; Start 10/14/16 at 11:00 Dextrose (D50w Syringe) 50 ml Q15M PRN IV DECREASED GLUCOSE; Start 10/14/16 at 11:00 Glucagon (Glucagen) 1 mg Q15M PRN IM DECREASED GLUCOSE; Start 10/14/16 at 11:00 Glucose (Glutose) 15 gm Q15M PRN BUCCAL DECREASED GLUCOSE; Start 10/14/16 at 11 :00 IV Flush 10 ml 10 ml PRN PRN IV FLUSH LINE; Start 10/15/16 at 12:00 Potassium Chloride (KCl 40 MEQ/250 ML NS) 250 ml @ 62.5 mls/hr ONCE ONCE IVPB Last administered on 10/17/16 10:14; Admin Dose 62.5 MLS/HR; Start 10/17/16 at 09:30; Stop 10/17/16 at 13:29 JUDIT MEZA M.D. October 17, 2016 13:15
[2016-10-17] MEDS: SOD CHLORIDE 0.45% 1,000 ML IV SCH (13:58)
--- NOTE | 2016-10-17 14:00 | PN ---
Date/Time of Note Date/Time of Note DATE: 10/17/16 TIME: 13:59 Assessment/Plan VTE Prophylaxis VTE Prophylaxis Intervention: SCD's Assessment/Plan Chief Complaint/Hosp Course 1. Cardiac arrest with return of circulation s/p hypothermia protocol Cardiology consultation appreciated 2. Anoxic encephalopathy EEG shows anoxic encephalopathy Neurology consultation appreciated, pt not brain Palliative Care consult appreciated Family is deciding about CODE STATUS and whether or not he would have wanted a tracheostomy, continue to follow up with them 3. Acute respiratory failure secondary to cardiac arrest Continue vent support, pulmonology consultation appreciated 4. History of nonischemic cardiomyopathy with ejection fraction of 25%. 5. History of substance abuse. 6. Anemia, likely secondary to chronic disease. 7. History of schizophrenia. 8. FEN -Replace electrolytes Prophylaxis: Sequential compression devices Problems: Subjective 24 Hr Interval Summary Subjective hx not possible: pt non-verbal Exam/Review of Systems Vital Signs Vitals Vital Signs Date Time Temp Pulse Resp B/P Pulse Ox O2 Delivery O2 Flow Rate FiO2 10/17/16 13:30 70 16 114/77 100 Mechanical Ventilator 10/17/16 13:20 30 10/17/16 12:00 99.8 Intake and Output 10/16/16 10/16/16 10/17/16 15:00 23:00 07:00 Intake Total 418.390 ml 411.964 ml 532.0 ml Output Total 1962 ml 416 ml 444 ml Balance -1543.610 ml -4.036 ml 88.0 ml Exam Constitutional: non-verbal ENMT: intubated Respiratory: clear to auscultation Cardiovascular: regular rate and rhythm Gastrointestinal: soft, No distended Musculoskeletal: nl extremities to inspection Results Result Diagram: 10/17/16 0450 10/17/16 0450 Results 24 hrs Laboratory Tests Test 10/16/16 18:09 10/16/16 23:53 10/17/16 04:50 10/17/16 06:09 Bedside Glucose 139 132 125 White Blood Count 11.3 H Red Blood Count 3.90 L Hemoglobin 10.6 L Hematocrit 34.9 L Mean Corpuscular Volume 89.5 Mean Corpuscular Hemoglobin 27.2 L Mean Corpuscular Hemoglobin Concent 30.4 L Red Cell Distribution Width 18.8 H Platelet Count 215 Mean Platelet Volume 10.4 Neutrophils % 79.0 H Lymphocytes % 9.7 L Monocytes % 6.5 Eosinophils % 4.0 Basophils % 0.2 Nucleated Red Blood Cells % 0.0 Neutrophils # 8.9 H Lymphocytes # 1.1 Monocytes # 0.7 Eosinophils # 0.5 Basophils # 0.0 Nucleated Red Blood Cells # 0.0 Sodium Level 150 H Potassium Level 3.4 L Chloride Level 115 H Carbon Dioxide Level 28 Anion Gap 10 Blood Urea Nitrogen 18 Creatinine 1.07 Glucose Level 144 Calcium Level 8.5 Phosphorus Level 2.5 Magnesium Level 1.9 Test 10/17/16 11:35 Bedside Glucose 133 Medications Medications Current Medications Acetaminophen (Tylenol Supp) 650 mg Q4H PRN [place] TEMP > 37C; Start 10/12/16 at 14: 00 Acetaminophen (Tylenol Liquid) 650 mg Q4H PRN PO TEMP > 37C; Start 10/12/16 at 14:00 Acetaminophen (Tylenol Supp) 500 mg Q6H [place] Last administered on 10/14/16 02:56 ; Admin Dose 500 MG; Start 10/13/16 at 14:00 Acetaminophen (Tylenol Liquid) 500 mg Q6H PO Last administered on 10/17/16 13: 47; Admin Dose 500 MG; Start 10/13/16 at 14:00 Meperidine HCl (Demerol) 12.5 mg Q4H PRN IV POST OPERATIVE SHIVERING; Start 10/12/16 at 14:00 Meperidine HCl (Demerol) 25 mg Q4H PRN IV POST OPERATIVE SHIVERING; Start at 14:00 Eye Lubricant (Akwa Oint) 1 applic Q6 BOTH EYES Last administered on 10/17/16 11:40; Admin Dose 1 APPLIC; Start 10/12/16 at 18:00 Eye Lubricant 2 drop 2 drop Q6 BOTH EYES Last administered on 10/17/16 11:40; Admin Dose 2 DROP; Start 10/12/16 at 18:00 Piperacillin Sod/ Tazobactam Sod 100 ml @ 200 mls/hr Q6 IVPB Last administered on 10/17/16 11:40; Admin Dose 200 MLS/HR; Start 10/12/16 at 19:00 Dopamine HCl/ Dextrose 250 ml @ 6.488 mls/ hr TITRATE IV Last administered on 10/16/16 09:48; Admin Dose 9.731 MLS/HR; Start 10/12/16 at 17:00 Ondansetron HCl (Zofran Inj) 4 mg Q6H PRN IV NAUSEA AND/OR VOMITING; Start 10/12 at 16:30 Pantoprazole (Protonix Iv) 40 mg DAILY@06 IV Last administered on 10/17/16 05: 17; Admin Dose 40 MG; Start 10/13/16 at 06:00 Furosemide (Lasix) 20 mg DAILY IV Last administered on 10/17/16 08:02; Admin Dose 20 MG; Start 10/12/16 at 21:00 Insulin Aspart (Novolog Insulin Pen) NOVOLOG *MILD* ALGORITHM Q6 SC Last administered on 10/15/16 06:02; Admin Dose 1 UNIT; Start 10/14/16 at 12:00 Miscellaneous Information 1 ea NOTE XX ; Start 10/14/16 at 11:00 Glucose (Glutose) 15 gm Q15M PRN PO DECREASED GLUCOSE; Start 10/14/16 at 11:00 Glucose (Glutose) 22.5 gm Q15M PRN PO DECREASED GLUCOSE; Start 10/14/16 at 11: 00 Dextrose (D50w Syringe) 25 ml Q15M PRN IV DECREASED GLUCOSE; Start 10/14/16 at 11:00 Dextrose (D50w Syringe) 50 ml Q15M PRN IV DECREASED GLUCOSE; Start 10/14/16 at 11:00 Glucagon (Glucagen) 1 mg Q15M PRN IM DECREASED GLUCOSE; Start 10/14/16 at 11:00 Glucose (Glutose) 15 gm Q15M PRN BUCCAL DECREASED GLUCOSE; Start 10/14/16 at 11 :00 IV Flush 10 ml 10 ml PRN PRN IV FLUSH LINE; Start 10/15/16 at 12:00 Sodium Chloride (1/2 NS) 1,000 ml @ 100 mls/hr Q10H IV ; Start 10/17/16 at 14: 00 TIFFANIE WILSON October 17, 2016 14:00
[2016-10-18] VITALS (35 sets, daily range): BP systolic 96–130; BP diastolic 69–97; PULSE 57–71; RESP 15–22
[2016-10-18] MEDS: SOD CHLORIDE 0.45% 1,000 ML IV SCH ×2 (00:11→09:36)
[2016-10-18] MEDS: ACETAMINOPHEN 650MG/20.3ML CUP PO SCH ×4 (02:00→20:24)
[2016-10-18] MEDS: ACETAMINOPHEN 650 MG SUPP PR SCH ×4 (02:00→20:00)
[2016-10-18 05:35] LABS: ADD SCAN DIFF NO
[2016-10-18 05:44] LABS: BASOPHILS % 0.2 % (0.0-2.0); EOSINOPHILS # 0.7 10^3/ul (0.0-0.5); EOSINOPHILS % 6.9 % (0.0-7.0); HEMATOCRIT 37.7 % (42.0-52.0); HEMOGLOBIN 11.2 g/dl (14.0-18.0); LYMPHOCYTES # 1.5 10^3/ul (0.8-2.9); LYMPHOCYTES % 15.2 % (15.0-51.0); MEAN CORPUSCULAR HEMOGLOBIN 26.5 pg (29.0-33.0); MEAN CORPUSCULAR HGB CONC 29.7 g/dl (32.0-37.0); MEAN CORPUSCULAR VOLUME 89.1 fl (82.0-101.0); MEAN PLATELET VOLUME 10.5 fl (7.4-10.4); MONOCYTE # 0.9 10^3/ul (0.3-0.9); NEUTROPHIL # 6.8 10^3/ul (1.6-7.5); NEUTROPHILS % 67.5 % (39.0-77.0); PLATELET COUNT 214 10^3/UL (140-415); RED BLOOD COUNT 4.23 10^6/ul (4.70-6.10); RED CELL DISTRIBUTION WIDTH 18.6 % (11.5-14.5)
[2016-10-18] MEDS: OCULAR LUBRICANT 3.5 GM OPH OINT BOTH EYES SCH ×4 (05:49→23:55)
[2016-10-18] MEDS: PANTOPRAZOLE 40 MG INJ IV SCH (05:49)
[2016-10-18] MEDS: INSULIN ASPART [NOVOLOG] 3 ML PEN SC SCH ×5 (05:49→23:59)
[2016-10-18] MEDS: ARTIFICIAL TEARS 15 ML OPH BOTH EYES SCH ×4 (05:49→23:55)
[2016-10-18] MEDS: PIPER-TAZO 3.375 GM IV (PMX) 100 ML IVPB SCH ×4 (05:50→23:56)
[2016-10-18 06:15] LABS: POTASSIUM 3.6 mmol/L (3.5-5.1)
[2016-10-18 06:17] LABS: CREATININE 1.03 mg/dl (0.61-1.24)
[2016-10-18 06:18] LABS: CALCIUM 8.7 mg/dl (8.4-10.2)
[2016-10-18] MEDS: FUROSEMIDE 20 MG INJ IV SCH (08:52)
--- NOTE | 2016-10-18 11:49 | CONS ---
Date/Time of Note Date/Time of Note DATE: 10/18/16 TIME: 11:47 Consult Date/Type/Reason Admit Date/Time October 12, 2016 at 16:30 Type of Consultation: Pulmonary ICU Ordering Provider: TIFFANIE WILSON Subjective No events. Remains unresponsive on vent. Objective Vital Signs Date Time Temp Pulse Resp B/P Pulse Ox O2 Delivery O2 Flow Rate FiO2 10/18/16 10:00 63 20 111/81 100 Mechanical Ventilator 10/18/16 07:51 99.1 10/18/16 07:45 30 Intake and Output 10/17/16 10/17/16 10/18/16 15:00 23:00 07:00 Intake Total 857.24 ml 1098.96 ml 1086.48 ml Output Total 2274 ml 312 ml 190 ml Balance -1416.76 ml 786.96 ml 896.48 ml Exam CARDIAC: S1, S2, no added sounds or murmurs. CHEST: Clear ABDOMEN: Soft, nontender. No guarding or rebound. EXTREMITIES: No cyanosis, clubbing, edema +1 Results/Medications Result Diagram: 10/18/16 0500 10/18/16 0500 Results 24 hrs Laboratory Tests Test 10/17/16 17:29 10/18/16 00:10 10/18/16 05:00 10/18/16 05:48 Bedside Glucose 125 122 128 White Blood Count 10.0 Red Blood Count 4.23 L Hemoglobin 11.2 L Hematocrit 37.7 L Mean Corpuscular Volume 89.1 Mean Corpuscular Hemoglobin 26.5 L Mean Corpuscular Hemoglobin Concent 29.7 L Red Cell Distribution Width 18.6 H Platelet Count 214 Mean Platelet Volume 10.5 H Neutrophils % 67.5 Lymphocytes % 15.2 Monocytes % 9.0 Eosinophils % 6.9 Basophils % 0.2 Nucleated Red Blood Cells % 0.0 Neutrophils # 6.8 Lymphocytes # 1.5 Monocytes # 0.9 Eosinophils # 0.7 H Basophils # 0.0 Nucleated Red Blood Cells # 0.0 Sodium Level 150 H Potassium Level 3.6 Chloride Level 113 H Carbon Dioxide Level 27 Anion Gap 14 Blood Urea Nitrogen 18 Creatinine 1.03 Glucose Level 139 Calcium Level 8.7 Medications Current Medications Acetaminophen (Tylenol Supp) 650 mg Q4H PRN NM TEMP > 37C; Start 10/12/16 at 14: 00 Acetaminophen (Tylenol Liquid) 650 mg Q4H PRN PO TEMP > 37C; Start 10/12/16 at 14:00 Acetaminophen (Tylenol Supp) 500 mg Q6H NM Last administered on 10/14/16 02:56 ; Admin Dose 500 MG; Start 10/13/16 at 14:00 Acetaminophen (Tylenol Liquid) 500 mg Q6H PO Last administered on 10/18/16 07: 48; Admin Dose 500 MG; Start 10/13/16 at 14:00 Meperidine HCl (Demerol) 12.5 mg Q4H PRN IV POST OPERATIVE SHIVERING; Start 10/12/16 at 14:00 Meperidine HCl (Demerol) 25 mg Q4H PRN IV POST OPERATIVE SHIVERING; Start at 14:00 Eye Lubricant (Akwa Oint) 1 applic Q6 BOTH EYES Last administered on 10/18/16 05:49; Admin Dose 1 APPLIC; Start 10/12/16 at 18:00 Eye Lubricant 2 drop 2 drop Q6 BOTH EYES Last administered on 10/18/16 05:49; Admin Dose 2 DROP; Start 10/12/16 at 18:00 Piperacillin Sod/ Tazobactam Sod 100 ml @ 200 mls/hr Q6 IVPB Last administered on 10/18/16 05:50; Admin Dose 200 MLS/HR; Start 10/12/16 at 19:00 Dopamine HCl/ Dextrose 250 ml @ 6.488 mls/ hr TITRATE IV Last administered on 10/16/16 09:48; Admin Dose 9.731 MLS/HR; Start 10/12/16 at 17:00 Ondansetron HCl (Zofran Inj) 4 mg Q6H PRN IV NAUSEA AND/OR VOMITING; Start 10/12 at 16:30 Pantoprazole (Protonix Iv) 40 mg DAILY@06 IV Last administered on 10/18/16 05: 49; Admin Dose 40 MG; Start 10/13/16 at 06:00 Furosemide (Lasix) 20 mg DAILY IV Last administered on 10/18/16 08:52; Admin Dose 20 MG; Start 10/12/16 at 21:00 Insulin Aspart (Novolog Insulin Pen) NOVOLOG *MILD* ALGORITHM Q6 SC Last administered on 10/15/16 06:02; Admin Dose 1 UNIT; Start 10/14/16 at 12:00 Miscellaneous Information 1 ea NOTE XX ; Start 10/14/16 at 11:00 Glucose (Glutose) 15 gm Q15M PRN PO DECREASED GLUCOSE; Start 10/14/16 at 11:00 Glucose (Glutose) 22.5 gm Q15M PRN PO DECREASED GLUCOSE; Start 10/14/16 at 11: 00 Dextrose (D50w Syringe) 25 ml Q15M PRN IV DECREASED GLUCOSE; Start 10/14/16 at 11:00 Dextrose (D50w Syringe) 50 ml Q15M PRN IV DECREASED GLUCOSE; Start 10/14/16 at 11:00 Glucagon (Glucagen) 1 mg Q15M PRN IM DECREASED GLUCOSE; Start 10/14/16 at 11:00 Glucose (Glutose) 15 gm Q15M PRN BUCCAL DECREASED GLUCOSE; Start 10/14/16 at 11 :00 IV Flush 10 ml 10 ml PRN PRN IV FLUSH LINE; Start 10/15/16 at 12:00 Sodium Chloride (1/2 NS) 1,000 ml @ 100 mls/hr Q10H IV Last administered on 09:36; Admin Dose 100 MLS/HR; Start 10/17/16 at 14:00 Assessment/Plan Additional Assessment/Plan IMPRESSION: 1. s/p Cardiopulmonary arrest. 2. Severe Anoxic Brain Injury 3. CHF 4. Afib 5. History of substance abuse 6. HyperNa+ RECS: 1. Vent support 2. De-escalate abx 3. Keep off sedatives 4. Change D51/2NS to Free H20 via NGT 5. Goals of care to be discussed with next of kin, as potential for meaningful recovery is nil 35 min cc time VITO HEAD MD October 18, 2016 11:49
--- NOTE | 2016-10-18 13:22 | CONS ---
Date/Time of Note Date/Time of Note DATE: 10/18/16 TIME: 13:18 Assessment/Plan Assessment/Plan Additional Assessment/Plan S/p Cardiac arrest Ventricular tachycardia Cardiogenic Shock on Dopamine Cardiomegaly Severe acute on chronic congestive heart failure Acute encephalopathy Anemia VDRF Anemia Substance abuse Hemodynamically stable Off Dopamine Keep Mag > 2 and Potassium > 4, Ordered Continue Vent Support and aggressive pulmonary Toiletry Continue Nebs as scheduled Continue Lasix Continue Insulin Continue GI and DVT Prophylaxis Consultation Date/Type/Reason Admit Date/Time October 12, 2016 at 16:30 Initial Consult Date Type of Consultation: Pulmonary ICU Referring Provider: TIFFANIE WILSON Exam/Review of Systems Vital Signs Vitals Vital Signs Date Time Temp Pulse Resp B/P Pulse Ox O2 Delivery O2 Flow Rate FiO2 10/18/16 12:00 60 10/18/16 12:00 19 117/86 100 Mechanical Ventilator 10/18/16 11:00 97.9 10/18/16 07:45 30 Intake and Output 10/17/16 10/17/16 10/18/16 15:00 23:00 07:00 Intake Total 857.24 ml 1098.96 ml 1086.48 ml Output Total 2274 ml 312 ml 190 ml Balance -1416.76 ml 786.96 ml 896.48 ml Exam Intubated Neck No JVD CVS RRR, No m/r/g Chest Mechanical breath sounds heard bilaterally Abdomen BS present no organomegaly Ext No pedal edema Results Result Diagram: 10/18/16 0500 10/18/16 0500 Results 24 hrs Laboratory Tests Test 10/17/16 17:29 10/18/16 00:10 10/18/16 05:00 10/18/16 05:48 Bedside Glucose 125 122 128 White Blood Count 10.0 Red Blood Count 4.23 L Hemoglobin 11.2 L Hematocrit 37.7 L Mean Corpuscular Volume 89.1 Mean Corpuscular Hemoglobin 26.5 L Mean Corpuscular Hemoglobin Concent 29.7 L Red Cell Distribution Width 18.6 H Platelet Count 214 Mean Platelet Volume 10.5 H Neutrophils % 67.5 Lymphocytes % 15.2 Monocytes % 9.0 Eosinophils % 6.9 Basophils % 0.2 Nucleated Red Blood Cells % 0.0 Neutrophils # 6.8 Lymphocytes # 1.5 Monocytes # 0.9 Eosinophils # 0.7 H Basophils # 0.0 Nucleated Red Blood Cells # 0.0 Sodium Level 150 H Potassium Level 3.6 Chloride Level 113 H Carbon Dioxide Level 27 Anion Gap 14 Blood Urea Nitrogen 18 Creatinine 1.03 Glucose Level 139 Calcium Level 8.7 Test 10/18/16 11:57 Bedside Glucose 123 Medications Medications Current Medications Acetaminophen (Tylenol Supp) 650 mg Q4H PRN [place] TEMP > 37C; Start 10/12/16 at 14: 00 Acetaminophen (Tylenol Liquid) 650 mg Q4H PRN PO TEMP > 37C; Start 10/12/16 at 14:00 Acetaminophen (Tylenol Supp) 500 mg Q6H CO Last administered on 10/14/16 02:56 ; Admin Dose 500 MG; Start 10/13/16 at 14:00 Acetaminophen (Tylenol Liquid) 500 mg Q6H PO Last administered on 10/18/16 07: 48; Admin Dose 500 MG; Start 10/13/16 at 14:00 Meperidine HCl (Demerol) 12.5 mg Q4H PRN IV POST OPERATIVE SHIVERING; Start 10/12/16 at 14:00 Meperidine HCl (Demerol) 25 mg Q4H PRN IV POST OPERATIVE SHIVERING; Start at 14:00 Eye Lubricant (Akwa Oint) 1 applic Q6 BOTH EYES Last administered on 10/18/16 11:54; Admin Dose 1 APPLIC; Start 10/12/16 at 18:00 Eye Lubricant 2 drop 2 drop Q6 BOTH EYES Last administered on 10/18/16 11:54; Admin Dose 2 DROP; Start 10/12/16 at 18:00 Piperacillin Sod/ Tazobactam Sod 100 ml @ 200 mls/hr Q6 IVPB Last administered on 10/18/16 11:56; Admin Dose 200 MLS/HR; Start 10/12/16 at 19:00 Dopamine HCl/ Dextrose 250 ml @ 6.488 mls/ hr TITRATE IV Last administered on 10/16/16 09:48; Admin Dose 9.731 MLS/HR; Start 10/12/16 at 17:00 Ondansetron HCl (Zofran Inj) 4 mg Q6H PRN IV NAUSEA AND/OR VOMITING; Start 10/12 at 16:30 Pantoprazole (Protonix Iv) 40 mg DAILY@06 IV Last administered on 10/18/16 05: 49; Admin Dose 40 MG; Start 10/13/16 at 06:00 Furosemide (Lasix) 20 mg DAILY IV Last administered on 10/18/16 08:52; Admin Dose 20 MG; Start 10/12/16 at 21:00 Insulin Aspart (Novolog Insulin Pen) NOVOLOG *MILD* ALGORITHM Q6 SC Last administered on 10/15/16 06:02; Admin Dose 1 UNIT; Start 10/14/16 at 12:00 Miscellaneous Information 1 ea NOTE XX ; Start 10/14/16 at 11:00 Glucose (Glutose) 15 gm Q15M PRN PO DECREASED GLUCOSE; Start 10/14/16 at 11:00 Glucose (Glutose) 22.5 gm Q15M PRN PO DECREASED GLUCOSE; Start 10/14/16 at 11: 00 Dextrose (D50w Syringe) 25 ml Q15M PRN IV DECREASED GLUCOSE; Start 10/14/16 at 11:00 Dextrose (D50w Syringe) 50 ml Q15M PRN IV DECREASED GLUCOSE; Start 10/14/16 at 11:00 Glucagon (Glucagen) 1 mg Q15M PRN IM DECREASED GLUCOSE; Start 10/14/16 at 11:00 Glucose (Glutose) 15 gm Q15M PRN BUCCAL DECREASED GLUCOSE; Start 10/14/16 at 11 :00 IV Flush (NS 10 ml) 10 ml PRN PRN IV FLUSH LINE; Start 10/15/16 at 12:00 JUDIT MEZA M.D. October 18, 2016 13:22
[2016-10-18] MEDS ORDERED: POTASSIUM CL (0.2 MEQ/ML) IV SYG IV* SCH (13:30)
[2016-10-18] MEDS ORDERED: MAGNESIUM SULFATE 2 GM/50 ML 50 ML IVPB ONE (13:30)
[2016-10-18] MEDS: POTASSIUM CHLORIDE 50 ML IVPB SCH ×3 (13:47→18:08)
--- NOTE | 2016-10-18 16:52 | PN ---
Date/Time of Note Date/Time of Note DATE: 10/18/16 TIME: 16:51 Assessment/Plan VTE Prophylaxis VTE Prophylaxis Intervention: SCD's Assessment/Plan Chief Complaint/Hosp Course 1. Cardiac arrest with return of circulation s/p hypothermia protocol Cardiology consultation appreciated 2. Anoxic encephalopathy EEG shows anoxic encephalopathy Neurology consultation appreciated, pt not brain Palliative Care consult appreciated Family is deciding about CODE STATUS and whether or not he would have wanted a tracheostomy, continue to follow up with them 3. Acute respiratory failure secondary to cardiac arrest Continue vent support, pulmonology consultation appreciated 4. History of nonischemic cardiomyopathy with ejection fraction of 25%. 5. History of substance abuse. 6. Anemia, likely secondary to chronic disease. 7. History of schizophrenia. 8. FEN -Replace electrolytes Prophylaxis: Sequential compression devices Problems: Subjective 24 Hr Interval Summary Subjective hx not possible: pt non-verbal Exam/Review of Systems Vital Signs Vitals Vital Signs Date Time Temp Pulse Resp B/P Pulse Ox O2 Delivery O2 Flow Rate FiO2 10/18/16 16:00 62 15 101/69 100 Mechanical Ventilator 10/18/16 15:00 98.1 10/18/16 07:45 30 Intake and Output 10/17/16 10/17/16 10/18/16 15:00 23:00 07:00 Intake Total 857.24 ml 1098.96 ml 1086.48 ml Output Total 2274 ml 312 ml 190 ml Balance -1416.76 ml 786.96 ml 896.48 ml Exam Constitutional: non-verbal ENMT: intubated Respiratory: clear to auscultation Cardiovascular: regular rate and rhythm Gastrointestinal: soft, No distended Musculoskeletal: nl extremities to inspection Results Result Diagram: 10/18/16 0500 10/18/16 0500 Results 24 hrs Laboratory Tests Test 10/17/16 17:29 10/18/16 00:10 10/18/16 05:00 10/18/16 05:48 Bedside Glucose 125 122 128 White Blood Count 10.0 Red Blood Count 4.23 L Hemoglobin 11.2 L Hematocrit 37.7 L Mean Corpuscular Volume 89.1 Mean Corpuscular Hemoglobin 26.5 L Mean Corpuscular Hemoglobin Concent 29.7 L Red Cell Distribution Width 18.6 H Platelet Count 214 Mean Platelet Volume 10.5 H Neutrophils % 67.5 Lymphocytes % 15.2 Monocytes % 9.0 Eosinophils % 6.9 Basophils % 0.2 Nucleated Red Blood Cells % 0.0 Neutrophils # 6.8 Lymphocytes # 1.5 Monocytes # 0.9 Eosinophils # 0.7 H Basophils # 0.0 Nucleated Red Blood Cells # 0.0 Sodium Level 150 H Potassium Level 3.6 Chloride Level 113 H Carbon Dioxide Level 27 Anion Gap 14 Blood Urea Nitrogen 18 Creatinine 1.03 Glucose Level 139 Calcium Level 8.7 Test 10/18/16 11:57 Bedside Glucose 123 Medications Medications Current Medications Acetaminophen (Tylenol Supp) 650 mg Q4H PRN [place] TEMP > 37C; Start 10/12/16 at 14: 00 Acetaminophen (Tylenol Liquid) 650 mg Q4H PRN PO TEMP > 37C; Start 10/12/16 at 14:00 Acetaminophen (Tylenol Supp) 500 mg Q6H GA Last administered on 10/14/16 02:56 ; Admin Dose 500 MG; Start 10/13/16 at 14:00 Acetaminophen (Tylenol Liquid) 500 mg Q6H PO Last administered on 10/18/16 07: 48; Admin Dose 500 MG; Start 10/13/16 at 14:00 Meperidine HCl (Demerol) 12.5 mg Q4H PRN IV POST OPERATIVE SHIVERING; Start 10/12/16 at 14:00 Meperidine HCl (Demerol) 25 mg Q4H PRN IV POST OPERATIVE SHIVERING; Start at 14:00 Eye Lubricant (Akwa Oint) 1 applic Q6 BOTH EYES Last administered on 10/18/16 11:54; Admin Dose 1 APPLIC; Start 10/12/16 at 18:00 Eye Lubricant 2 drop 2 drop Q6 BOTH EYES Last administered on 10/18/16 11:54; Admin Dose 2 DROP; Start 10/12/16 at 18:00 Piperacillin Sod/ Tazobactam Sod 100 ml @ 200 mls/hr Q6 IVPB Last administered on 10/18/16 11:56; Admin Dose 200 MLS/HR; Start 10/12/16 at 19:00 Dopamine HCl/ Dextrose 250 ml @ 6.488 mls/ hr TITRATE IV Last administered on 10/16/16 09:48; Admin Dose 9.731 MLS/HR; Start 10/12/16 at 17:00 Ondansetron HCl (Zofran Inj) 4 mg Q6H PRN IV NAUSEA AND/OR VOMITING; Start 10/12 at 16:30 Pantoprazole (Protonix Iv) 40 mg DAILY@06 IV Last administered on 10/18/16 05: 49; Admin Dose 40 MG; Start 10/13/16 at 06:00 Furosemide (Lasix) 20 mg DAILY IV Last administered on 10/18/16 08:52; Admin Dose 20 MG; Start 10/12/16 at 21:00 Insulin Aspart (Novolog Insulin Pen) NOVOLOG *MILD* ALGORITHM Q6 SC Last administered on 10/15/16 06:02; Admin Dose 1 UNIT; Start 10/14/16 at 12:00 Miscellaneous Information 1 ea NOTE XX ; Start 10/14/16 at 11:00 Glucose (Glutose) 15 gm Q15M PRN PO DECREASED GLUCOSE; Start 10/14/16 at 11:00 Glucose (Glutose) 22.5 gm Q15M PRN PO DECREASED GLUCOSE; Start 10/14/16 at 11: 00 Dextrose (D50w Syringe) 25 ml Q15M PRN IV DECREASED GLUCOSE; Start 10/14/16 at 11:00 Dextrose (D50w Syringe) 50 ml Q15M PRN IV DECREASED GLUCOSE; Start 10/14/16 at 11:00 Glucagon (Glucagen) 1 mg Q15M PRN IM DECREASED GLUCOSE; Start 10/14/16 at 11:00 Glucose (Glutose) 15 gm Q15M PRN BUCCAL DECREASED GLUCOSE; Start 10/14/16 at 11 :00 IV Flush 10 ml 10 ml PRN PRN IV FLUSH LINE; Start 10/15/16 at 12:00 Potassium Chloride (KCl 20 MEQ/50 ML SW) 50 ml @ 25 mls/hr Q2H IVPB Last administered on 10/18/16 16:02; Admin Dose 25 MLS/HR; Start 10/18/16 at 14:00; Stop 10/18/16 at 19:59 TIFFANIE WILSON October 18, 2016 16:52
[2016-10-19] VITALS (33 sets, daily range): BP systolic 109–130; BP diastolic 74–92; PULSE 57–71; RESP 9–23
[2016-10-19] MEDS: ACETAMINOPHEN 650 MG SUPP PR SCH ×4 (02:00→20:00)
[2016-10-19] MEDS: ACETAMINOPHEN 650MG/20.3ML CUP PO SCH ×2 (02:11→07:41)
[2016-10-19 04:44] LABS: ADD SCAN DIFF NO
[2016-10-19 04:49] LABS: BASOPHILS % 0.5 % (0.0-2.0); EOSINOPHILS # 0.6 10^3/ul (0.0-0.5); EOSINOPHILS % 7.4 % (0.0-7.0); HEMATOCRIT 35.1 % (42.0-52.0); HEMOGLOBIN 10.8 g/dl (14.0-18.0); LYMPHOCYTES # 1.7 10^3/ul (0.8-2.9); LYMPHOCYTES % 21.5 % (15.0-51.0); MEAN CORPUSCULAR HEMOGLOBIN 26.9 pg (29.0-33.0); MEAN CORPUSCULAR HGB CONC 30.8 g/dl (32.0-37.0); MEAN CORPUSCULAR VOLUME 87.5 fl (82.0-101.0); MEAN PLATELET VOLUME 10.8 fl (7.4-10.4); MONOCYTE # 0.6 10^3/ul (0.3-0.9); MONOCYTES % 6.8 % (0.0-11.0); NEUTROPHILS % 61.8 % (39.0-77.0); PLATELET COUNT 217 10^3/UL (140-415); RED BLOOD COUNT 4.01 10^6/ul (4.70-6.10); RED CELL DISTRIBUTION WIDTH 18.2 % (11.5-14.5); WHITE BLOOD COUNT 8.1 10^3/ul (4.8-10.8)
[2016-10-19 05:21] LABS: CREATININE 1.09 mg/dl (0.61-1.24); POTASSIUM 3.9 mmol/L (3.5-5.1)
[2016-10-19] MEDS: ARTIFICIAL TEARS 15 ML OPH BOTH EYES SCH (05:28)
[2016-10-19] MEDS: OCULAR LUBRICANT 3.5 GM OPH OINT BOTH EYES SCH ×3 (05:28→18:48)
[2016-10-19] MEDS: PIPER-TAZO 3.375 GM IV (PMX) 100 ML IVPB SCH (05:28)
[2016-10-19] MEDS: PANTOPRAZOLE 40 MG INJ IV SCH (05:29)
[2016-10-19] MEDS: INSULIN ASPART [NOVOLOG] 3 ML PEN SC SCH (05:29)
--- NOTE | 2016-10-19 08:10 | RADRPT ---
PROCEDURE: XR Chest. CLINICAL INDICATION: Shortness of breath. TECHNIQUE: Single frontal view. COMPARISON: 10/17/2016. FINDINGS: The endotracheal tube, nasogastric tube, and left arm PICC line remain in satisfactory position. Th e lungs are clear. The heart is enlarged. There is no pleural effusion. There is no pneumothorax. IMPRESSION: 1. No change from 10/17/2016. RPTAT: QQ .Vu Ashley MD, MD Date Time Electronically viewed and signed by .Vu Ashley MD, MD on 10/19/2016 08:09 .R/
[2016-10-19] MEDS: FUROSEMIDE 20 MG INJ IV SCH (08:23)
--- NOTE | 2016-10-19 08:38 | PN ---
Date/Time of Note Date/Time of Note DATE: 10/19/16 TIME: 08:31 Assessment/Plan VTE Prophylaxis VTE Prophylaxis Intervention: SCD's Lines/Catheters IV Catheter Type (from Nrs): PICC Line Central line still needed: Yes Urinary Cath still in place: Yes Reason Cath still needed: other (indicate) Assessment/Plan Assessment/Plan 1. Cardiac arrest with return of circulation: ?2/2 arrythmia s/p hypothermia protocol 2. Anoxic encephalopathy EEG shows anoxic encephalopathy Neurology consultation appreciated, pt not brain Palliative Care consult appreciated Family is deciding about CODE STATUS and whether or not he would have wanted a tracheostomy, continue to follow up with them 3. Acute respiratory failure secondary to cardiac arrest Continue vent support and weaning , pulmonology consultation appreciated 4. History of nonischemic cardiomyopathy with ejection fraction of 25%. 5. History of substance abuse. 6. Anemia, likely secondary to chronic disease. 7. History of schizophrenia. 8. S/p Febrile episode : ? SIRS, continue abx for now / d/c tylenol / repeat cultures / deescalate if no further fevers CC time : >35mins Prophylaxis: Sequential compression devices Subjective 24 Hr Interval Summary Subjective hx not possible: pt non-verbal, pt critical status Exam/Review of Systems Vital Signs Vitals Vital Signs Date Time Temp Pulse Resp B/P Pulse Ox O2 Delivery O2 Flow Rate FiO2 10/19/16 08:00 98.8 62 15 121/88 100 Mechanical Ventilator 10/19/16 07:30 30 Intake and Output 10/18/16 10/18/16 10/19/16 15:00 23:00 07:00 Intake Total 990 ml 490 ml 660 ml Output Total 1285 ml 125 ml 425 ml Balance -295 ml 365 ml 235 ml Exam Constitutional: No alert, No oriented Eyes: PERRL, No icteric ENMT: intubated Respiratory: clear to auscultation, diminished breath sounds Cardiovascular: regular rate and rhythm, No murmurs/extra sounds Gastrointestinal: bowel sounds, distended (mildly), soft Genitourinary - Male: other (mild scrotal eema) Extremities: edema (mild in hands and feet) Neurological: unresponsive Results Result Diagram: 10/19/16 0330 10/19/16 0330 Results 24 hrs Laboratory Tests Test 10/18/16 11:57 10/18/16 18:06 10/18/16 23:54 10/19/16 03:30 Bedside Glucose 123 133 151 White Blood Count 8.1 Red Blood Count 4.01 L Hemoglobin 10.8 L Hematocrit 35.1 L Mean Corpuscular Volume 87.5 Mean Corpuscular Hemoglobin 26.9 L Mean Corpuscular Hemoglobin Concent 30.8 L Red Cell Distribution Width 18.2 H Platelet Count 217 Mean Platelet Volume 10.8 H Neutrophils % 61.8 Lymphocytes % 21.5 Monocytes % 6.8 Eosinophils % 7.4 H Basophils % 0.5 Nucleated Red Blood Cells % 0.0 Neutrophils # 5.0 Lymphocytes # 1.7 Monocytes # 0.6 Eosinophils # 0.6 H Basophils # 0.0 Nucleated Red Blood Cells # 0.0 Sodium Level 144 Potassium Level 3.9 Chloride Level 115 H Carbon Dioxide Level 25 Anion Gap 8 Blood Urea Nitrogen 20 Creatinine 1.09 Glucose Level 154 Calcium Level 9.0 Test 10/19/16 05:27 10/19/16 07:48 Bedside Glucose 128 Lab Scanned Report REFER[facility] LAB Medications Medications Current Medications Acetaminophen (Tylenol Supp) 650 mg Q4H PRN [place] TEMP > 37C; Start 10/12/16 at 14: 00 Acetaminophen (Tylenol Liquid) 650 mg Q4H PRN PO TEMP > 37C; Start 10/12/16 at 14:00 Acetaminophen (Tylenol Supp) 500 mg Q6H NE Last administered on 10/14/16 02:56 ; Admin Dose 500 MG; Start 10/13/16 at 14:00 Acetaminophen (Tylenol Liquid) 500 mg Q6H PO Last administered on 10/19/16 02: 11; Admin Dose 500 MG; Start 10/13/16 at 14:00 Meperidine HCl (Demerol) 12.5 mg Q4H PRN IV POST OPERATIVE SHIVERING; Start 10/12/16 at 14:00 Meperidine HCl (Demerol) 25 mg Q4H PRN IV POST OPERATIVE SHIVERING; Start at 14:00 Eye Lubricant (Akwa Oint) 1 applic Q6 BOTH EYES Last administered on 10/19/16 05:28; Admin Dose 1 APPLIC; Start 10/12/16 at 18:00 Eye Lubricant 2 drop 2 drop Q6 BOTH EYES Last administered on 10/19/16 05:28; Admin Dose 2 DROP; Start 10/12/16 at 18:00 Piperacillin Sod/ Tazobactam Sod 100 ml @ 200 mls/hr Q6 IVPB Last administered on 10/19/16 05:28; Admin Dose 200 MLS/HR; Start 10/12/16 at 19:00 Dopamine HCl/ Dextrose 250 ml @ 6.488 mls/ hr TITRATE IV Last administered on 10/16/16 09:48; Admin Dose 9.731 MLS/HR; Start 10/12/16 at 17:00 Ondansetron HCl (Zofran Inj) 4 mg Q6H PRN IV NAUSEA AND/OR VOMITING; Start 10/12 at 16:30 Pantoprazole (Protonix Iv) 40 mg DAILY@06 IV Last administered on 10/19/16 05: 29; Admin Dose 40 MG; Start 10/13/16 at 06:00 Furosemide (Lasix) 20 mg DAILY IV Last administered on 10/19/16 08:23; Admin Dose 20 MG; Start 10/12/16 at 21:00 Insulin Aspart (Novolog Insulin Pen) NOVOLOG *MILD* ALGORITHM Q6 SC Last administered on 10/18/16 23:59; Admin Dose 1 UNIT; Start 10/14/16 at 12:00 Miscellaneous Information 1 ea NOTE XX ; Start 10/14/16 at 11:00 Glucose (Glutose) 15 gm Q15M PRN PO DECREASED GLUCOSE; Start 10/14/16 at 11:00 Glucose (Glutose) 22.5 gm Q15M PRN PO DECREASED GLUCOSE; Start 10/14/16 at 11: 00 Dextrose (D50w Syringe) 25 ml Q15M PRN IV DECREASED GLUCOSE; Start 10/14/16 at 11:00 Dextrose (D50w Syringe) 50 ml Q15M PRN IV DECREASED GLUCOSE; Start 10/14/16 at 11:00 Glucagon (Glucagen) 1 mg Q15M PRN IM DECREASED GLUCOSE; Start 10/14/16 at 11:00 Glucose (Glutose) 15 gm Q15M PRN BUCCAL DECREASED GLUCOSE; Start 10/14/16 at 11 :00 IV Flush (NS 10 ml) 10 ml PRN PRN IV FLUSH LINE; Start 10/15/16 at 12:00 Procedures Procedures PROCEDURE: XR Chest. CLINICAL INDICATION: Shortness of breath. TECHNIQUE: Single frontal view. COMPARISON: 10/17/2016. FINDINGS: The endotracheal tube, nasogastric tube, and left arm PICC line remain in satisfactory position. The lungs are clear. The heart is enlarged. There is no pleural effusion. There is no pneumothorax. IMPRESSION: 1. No change from 10/17/2016. RPTAT: QQ .Vu Ashley MD, MD Date Time Electronically viewed and signed by .Vu Ashley MD, MD on 10/19/2016 08:09 .R/ CC: VITO HEAD MD, BOLATITO M. October 19, 2016 08:38
[2016-10-19] MEDS ORDERED: ARTIFICIAL TEARS 15 ML OPH BOTH EYES PRN (09:00)
--- NOTE | 2016-10-19 09:36 | CONS ---
Date/Time of Note Date/Time of Note DATE: 10/19/16 TIME: 09:33 Assessment/Plan Assessment/Plan Additional Assessment/Plan Chest x-ray from today was reviewed which is totally clear. Endotracheal tube is at an adequate level. Ventilator settings; AC of 16, tidal volume 500, PEEP of 5, 30% FiO2. Next Assessment recommendations; 1. Patient admitted for cardiac arrest status post CPR and status post hypothermia protocol with extremely poor mental status. 2. Possibly some element of aspiration pneumonia on admission, however chest x- ray from today is totally clear with no evidence of any infective process currently. Discontinue Zosyn. Continue current supportive care. Patient's prognosis is extremely poor. A CODE STATUS needs to be discussed with the family. 35 minutes of critical care time was spent evaluate the patient. Consultation Date/Type/Reason Admit Date/Time October 12, 2016 at 16:30 Initial Consult Date Type of Consultation: Pulmonary ICU Referring Provider: TIFFANIE WILSON 24 HR Interval Summary Free Text/Dictation Patient condition remains critical. Remains completely unresponsive. Other than minimal grimacing on deep sternal rubbing. Patient however has remained hemodynamically stable. General exam; middle-aged male, orally intubated, unresponsive. Currently in no distress. Exam/Review of Systems Vital Signs Vitals Vital Signs Date Time Temp Pulse Resp B/P Pulse Ox O2 Delivery O2 Flow Rate FiO2 10/19/16 09:00 62 18 100 30 10/19/16 09:00 120/88 Mechanical Ventilator 10/19/16 08:00 98.8 Intake and Output 10/18/16 10/18/16 10/19/16 15:00 23:00 07:00 Intake Total 990 ml 490 ml 660 ml Output Total 1285 ml 125 ml 425 ml Balance -295 ml 365 ml 235 ml Exam HEENT exam is; supple neck, no JVD. No lymphadenopathy. Midline trachea. Orally intubated. Patient has fair dentition. Pupils are small bilaterally. No thyromegaly. No neck bruits. Neck Chest examination; clear to auscultation. S1-S2 audible, no murmurs. Regular rhythm. Abdomen examination; soft, non-distended. No organomegaly. Bowel sounds audible. Extremity exam is; no peripheral edema. CONSULTING PSYCHIATRIST examination; patient remains essentially unresponsive. Results Result Diagram: 10/19/16 0330 10/19/16 0330 Results 24 hrs Laboratory Tests Test 10/18/16 11:57 10/18/16 18:06 10/18/16 23:54 10/19/16 03:30 Bedside Glucose 123 133 151 White Blood Count 8.1 Red Blood Count 4.01 L Hemoglobin 10.8 L Hematocrit 35.1 L Mean Corpuscular Volume 87.5 Mean Corpuscular Hemoglobin 26.9 L Mean Corpuscular Hemoglobin Concent 30.8 L Red Cell Distribution Width 18.2 H Platelet Count 217 Mean Platelet Volume 10.8 H Neutrophils % 61.8 Lymphocytes % 21.5 Monocytes % 6.8 Eosinophils % 7.4 H Basophils % 0.5 Nucleated Red Blood Cells % 0.0 Neutrophils # 5.0 Lymphocytes # 1.7 Monocytes # 0.6 Eosinophils # 0.6 H Basophils # 0.0 Nucleated Red Blood Cells # 0.0 Sodium Level 144 Potassium Level 3.9 Chloride Level 115 H Carbon Dioxide Level 25 Anion Gap 8 Blood Urea Nitrogen 20 Creatinine 1.09 Glucose Level 154 Calcium Level 9.0 Test 10/19/16 05:27 10/19/16 07:48 Bedside Glucose 128 Lab Scanned Report REFERENCE LAB Medications Medications Current Medications Acetaminophen (Tylenol Supp) 650 mg Q4H PRN [place] TEMP > 37C; Start 10/12/16 at 14: 00 Acetaminophen (Tylenol Liquid) 650 mg Q4H PRN PO TEMP > 37C; Start 10/12/16 at 14:00 Acetaminophen (Tylenol Supp) 500 mg Q6H IA Last administered on 10/14/16 02:56 ; Admin Dose 500 MG; Start 10/13/16 at 14:00 Meperidine HCl (Demerol) 12.5 mg Q4H PRN IV POST OPERATIVE SHIVERING; Start 10/12/16 at 14:00 Meperidine HCl (Demerol) 25 mg Q4H PRN IV POST OPERATIVE SHIVERING; Start at 14:00 Eye Lubricant 1 applic 1 applic Q6 BOTH EYES Last administered on 10/19/16 05: 28; Admin Dose 1 APPLIC; Start 10/12/16 at 18:00 Piperacillin Sod/ Tazobactam Sod 100 ml @ 200 mls/hr Q6 IVPB Last administered on 10/19/16 05:28; Admin Dose 200 MLS/HR; Start 10/12/16 at 19:00 Dopamine HCl/ Dextrose 250 ml @ 6.488 mls/ hr TITRATE IV Last administered on 10/16/16 09:48; Admin Dose 9.731 MLS/HR; Start 10/12/16 at 17:00 Ondansetron HCl (Zofran Inj) 4 mg Q6H PRN IV NAUSEA AND/OR VOMITING; Start 10/12 at 16:30 Pantoprazole (Protonix Iv) 40 mg DAILY@06 IV Last administered on 10/19/16 05: 29; Admin Dose 40 MG; Start 10/13/16 at 06:00 Furosemide (Lasix) 20 mg DAILY IV Last administered on 10/19/16 08:23; Admin Dose 20 MG; Start 10/12/16 at 21:00 Miscellaneous Information 1 ea NOTE XX ; Start 10/14/16 at 11:00 Glucose (Glutose) 15 gm Q15M PRN PO DECREASED GLUCOSE; Start 10/14/16 at 11:00 Glucose (Glutose) 22.5 gm Q15M PRN PO DECREASED GLUCOSE; Start 10/14/16 at 11: 00 Dextrose (D50w Syringe) 25 ml Q15M PRN IV DECREASED GLUCOSE; Start 10/14/16 at 11:00 Dextrose (D50w Syringe) 50 ml Q15M PRN IV DECREASED GLUCOSE; Start 10/14/16 at 11:00 Glucagon (Glucagen) 1 mg Q15M PRN IM DECREASED GLUCOSE; Start 10/14/16 at 11:00 Glucose (Glutose) 15 gm Q15M PRN BUCCAL DECREASED GLUCOSE; Start 10/14/16 at 11 :00 IV Flush (NS 10 ml) 10 ml PRN PRN IV FLUSH LINE; Start 10/15/16 at 12:00 Eye Lubricant (Artificial Tears Oph) 2 drop Q6 PRN BOTH EYES dry eyes; Start at 09:00 NEO HARRIS October 19, 2016 09:36
--- NOTE | 2016-10-19 13:10 | CONS ---
Date/Time of Note Date/Time of Note DATE: 10/19/16 TIME: 13:07 Assessment/Plan Assessment/Plan Chief Complaint/Hosp Course IMPRESSION: 1. Cardiac arrest-? primary arrythmic event 2. Cardiomyopathy with severely depressed left ventricular ejection fraction. 3. Congestive heart failure, systolic, acute on chronic. 4. Respiratory failure, status post intubation. 5. Encephalopathy. 6. Anemia. 7. Cerebral edema. 8. Initial acidosis, improving. 9. History of ventricular tachycardia. 10. History of substance abuse. 11.Encephalopathy-s/p EEG toxic-metabolic REcc: -Tele -serial ecg's -Continue lasix and follow volume status closely -Continue abx's and f/u cx data -Follow MS closely -Low dose ACEI/BB as tolerated for treatment of cardiomyopathy -Family conference pnding to decide direction of care Problems: Consultation Date/Type/Reason Admit Date/Time October 12, 2016 at 16:30 Initial Consult Date 10/12/2016 Type of Consultation: Cardiology Reason for Consultation Cardiac arrest Referring Provider: TIFFANIE WILSON Exam/Review of Systems Vital Signs Vitals Vital Signs Date Time Temp Pulse Resp B/P Pulse Ox O2 Delivery O2 Flow Rate FiO2 10/19/16 12:00 98.3 66 23 130/92 100 Mechanical Ventilator 10/19/16 11:00 30 Intake and Output 10/18/16 10/18/16 10/19/16 15:00 23:00 07:00 Intake Total 990 ml 490 ml 660 ml Output Total 1285 ml 125 ml 425 ml Balance -295 ml 365 ml 235 ml Exam Review of Systems: CONSTITUTIONAL: No fevers, chills. PULMONARY: encephalopathy CARDIOVASCULAR: No obvious chest pain/palpitations GASTROINTESTINAL: No nausea/vomiting. GENITOURINARY: No hematuria/dysuria. MUSCULOSKELETAL: No obvious myagias/arthalgias. PSYCHIATRIC: No documented depression. NEUROLOGIC: encephalopathy Constitutional: other (encephalopathic) Psych: no complaints Head: normocephalic ENMT: mucosa pink and moist Neck: jvd (9 cm water), supple Respiratory: diminished breath sounds (at bases/B) Cardiovascular: regular rate and rhythm Gastrointestinal: non-tender, soft Musculoskeletal: muscle tone (normal) Extremities: edema (none) Neurological: other (No focal deficits) Results Result Diagram: 10/19/16 03310/19/16 033 Results 24 hrs Laboratory Tests Test 10/18/16 18:06 10/18/16 23:54 10/19/16 03:30 10/19/16 05:27 Bedside Glucose 133 151 128 White Blood Count 8.1 Red Blood Count 4.01 L Hemoglobin 10.8 L Hematocrit 35.1 L Mean Corpuscular Volume 87.5 Mean Corpuscular Hemoglobin 26.9 L Mean Corpuscular Hemoglobin Concent 30.8 L Red Cell Distribution Width 18.2 H Platelet Count 217 Mean Platelet Volume 10.8 H Neutrophils % 61.8 Lymphocytes % 21.5 Monocytes % 6.8 Eosinophils % 7.4 H Basophils % 0.5 Nucleated Red Blood Cells % 0.0 Neutrophils # 5.0 Lymphocytes # 1.7 Monocytes # 0.6 Eosinophils # 0.6 H Basophils # 0.0 Nucleated Red Blood Cells # 0.0 Sodium Level 144 Potassium Level 3.9 Chloride Level 115 H Carbon Dioxide Level 25 Anion Gap 8 Blood Urea Nitrogen 20 Creatinine 1.09 Glucose Level 154 Calcium Level 9.0 Test 10/19/16 07:48 Lab Scanned Report REFERENCE LAB Medications Medications Current Medications Acetaminophen (Tylenol Supp) 650 mg Q4H PRN [place] TEMP > 37C; Start 10/12/16 at 14: 00 Acetaminophen (Tylenol Liquid) 650 mg Q4H PRN PO TEMP > 37C; Start 10/12/16 at 14:00 Acetaminophen (Tylenol Supp) 500 mg Q6H MT Last administered on 10/14/16 02:56 ; Admin Dose 500 MG; Start 10/13/16 at 14:00 Meperidine HCl (Demerol) 12.5 mg Q4H PRN IV POST OPERATIVE SHIVERING; Start 10/12/16 at 14:00 Meperidine HCl (Demerol) 25 mg Q4H PRN IV POST OPERATIVE SHIVERING; Start at 14:00 Eye Lubricant 1 applic 1 applic Q6 BOTH EYES Last administered on 10/19/16 11: 32; Admin Dose 1 APPLIC; Start 10/12/16 at 18:00 Dopamine HCl/ Dextrose 250 ml @ 6.488 mls/ hr TITRATE IV Last administered on 10/16/16 09:48; Admin Dose 9.731 MLS/HR; Start 10/12/16 at 17:00 Ondansetron HCl (Zofran Inj) 4 mg Q6H PRN IV NAUSEA AND/OR VOMITING; Start 10/12 at 16:30 Pantoprazole (Protonix Iv) 40 mg DAILY@06 IV Last administered on 10/19/16 05: 29; Admin Dose 40 MG; Start 10/13/16 at 06:00 Furosemide (Lasix) 20 mg DAILY IV Last administered on 10/19/16 08:23; Admin Dose 20 MG; Start 10/12/16 at 21:00 Miscellaneous Information 1 ea NOTE XX ; Start 10/14/16 at 11:00 Glucose (Glutose) 15 gm Q15M PRN PO DECREASED GLUCOSE; Start 10/14/16 at 11:00 Glucose (Glutose) 22.5 gm Q15M PRN PO DECREASED GLUCOSE; Start 10/14/16 at 11: 00 Dextrose (D50w Syringe) 25 ml Q15M PRN IV DECREASED GLUCOSE; Start 10/14/16 at 11:00 Dextrose (D50w Syringe) 50 ml Q15M PRN IV DECREASED GLUCOSE; Start 10/14/16 at 11:00 Glucagon (Glucagen) 1 mg Q15M PRN IM DECREASED GLUCOSE; Start 10/14/16 at 11:00 Glucose (Glutose) 15 gm Q15M PRN BUCCAL DECREASED GLUCOSE; Start 10/14/16 at 11 :00 IV Flush (NS 10 ml) 10 ml PRN PRN IV FLUSH LINE; Start 10/15/16 at 12:00 Eye Lubricant (Artificial Tears Oph) 2 drop Q6 PRN BOTH EYES dry eyes Last administered on 10/19/16 11:23; Admin Dose 2 DROP; Start 10/19/16 at 09:00 DEXTER ZAMORANO October 19, 2016 13:10
[2016-10-20] VITALS (36 sets, daily range): BP systolic 109–130; BP diastolic 70–91; PULSE 61–73; RESP 12–25
[2016-10-20 06:01] LABS: ADD SCAN DIFF NO
[2016-10-20 06:07] LABS: HEMATOCRIT 34.2 % (42.0-52.0); HEMOGLOBIN 10.8 g/dl (14.0-18.0); MEAN CORPUSCULAR HEMOGLOBIN 27.5 pg (29.0-33.0); MEAN CORPUSCULAR HGB CONC 31.6 g/dl (32.0-37.0); MEAN PLATELET VOLUME 11.4 fl (7.4-10.4); PLATELET COUNT 239 10^3/UL (140-415); RED BLOOD COUNT 3.93 10^6/ul (4.70-6.10); RED CELL DISTRIBUTION WIDTH 18.5 % (11.5-14.5); WHITE BLOOD COUNT 12.8 10^3/ul (4.8-10.8)
[2016-10-20 06:09] LABS: CALCIUM 8.7 mg/dl (8.4-10.2); CREATININE 1.04 mg/dl (0.61-1.24); MAGNESIUM 1.6 mg/dl (1.7-2.5); POTASSIUM 3.6 mmol/L (3.5-5.1)
[2016-10-20] MEDS: PANTOPRAZOLE 40 MG INJ IV SCH (06:31)
[2016-10-20] MEDS ORDERED: POTASSIUM CHLORIDE 250 ML IVPB ONE (07:00)
[2016-10-20] MEDS ORDERED: MAGNESIUM SULFATE 2 GM/50 ML 50 ML IVPB ONE (07:00)
[2016-10-20] MEDS ORDERED: NACL 3% FOR INHALATION 15 ML NEBU NEB ONE (07:00)
--- NOTE | 2016-10-20 08:42 | CONS ---
Date/Time of Note Date/Time of Note DATE: 10/20/16 TIME: 08:39 Assessment/Plan Assessment/Plan Additional Assessment/Plan 1. Cardiac arrest-? primary arrythmic event - now stable - will adjust Rx as needed 2. Cardiomyopathy with severely depressed left ventricular ejection fraction - will consider re-stratification 3. Congestive heart failure, systolic, acute on chronic - con't gentled diuresis, good urine output now. 4. Respiratory failure, status post intubation- pulm team follows 5. Encephalopathy. 6. Anemia. 7. Cerebral edema. 8. Initial acidosis, improving. 9. History of ventricular tachycardia - in sinus now 10. History of substance abuse. 11.Encephalopathy-s/p EEG toxic-metabolic Consultation Date/Type/Reason Admit Date/Time October 12, 2016 at 16:30 Type of Consultation: Cardiology Referring Provider: TIFFANIE WILSON 24 HR Interval Summary Free Text/Dictation Still critically ill - no sign arrhythmia overnight. ROS: No fever, no chills, no nausea, no vomiting, no diarrhea/constipation No recent weight changes No chest pain, no PND, no orthopnea No dizziness, blurred vision No thirst, no heat or cold intolerance (per nurse) Exam/Review of Systems Vital Signs Vitals Vital Signs Date Time Temp Pulse Resp B/P Pulse Ox O2 Delivery O2 Flow Rate FiO2 10/20/16 07:00 66 21 120/71 100 10/20/16 06:00 Mechanical Ventilator 10/20/16 05:37 30 10/20/16 04:00 98.5 Intake and Output 10/19/16 10/19/16 10/20/16 15:00 23:00 07:00 Intake Total 540 ml 540 ml 510 ml Output Total 1880 ml 515 ml 605 ml Balance -1340 ml 25 ml -95 ml Exam General: WN/WD/NAD, AOx 0 HEENT: Unicetric/atraumatic/EOMI (does not follow commands) NECK: JVD elevated, no thyromegaly Lymph: no lymphadenopathy HEART: regular with no S3, II/ systolic murmur at apex. PMI L LUNGS: Coarse sounds ABD: soft, NT, ND, +BS : Intact Neuro: non focal SKIN: chronic changes EXT: trace edema Results Result Diagram: 10/20/16 0405 10/20/165 Results 24 hrs Laboratory Tests Test 10/20/16 04:05 White Blood Count 12.8 #H Red Blood Count 3.93 L Hemoglobin 10.8 L Hematocrit 34.2 L Mean Corpuscular Volume 87.0 Mean Corpuscular Hemoglobin 27.5 L Mean Corpuscular Hemoglobin Concent 31.6 L Red Cell Distribution Width 18.5 H Platelet Count 239 Mean Platelet Volume 11.4 H Neutrophils % Lymphocytes % Monocytes % Neutrophils # Lymphocytes # Monocytes # Sodium Level 146 H Potassium Level 3.6 Chloride Level 110 Carbon Dioxide Level 25 Anion Gap 15 # Blood Urea Nitrogen 19 Creatinine 1.04 Glucose Level 137 Calcium Level 8.7 Magnesium Level 1.6 L Medications Medications Current Medications Acetaminophen (Tylenol Liquid) 650 mg Q4H PRN PO TEMP > 37C; Start 10/12/16 at 14:00 Meperidine HCl (Demerol) 12.5 mg Q4H PRN IV POST OPERATIVE SHIVERING; Start 10/12/16 at 14:00 Meperidine HCl 25 mg 25 mg Q4H PRN IV POST OPERATIVE SHIVERING; Start 10/12/16 at 14:00 Dopamine HCl/ Dextrose 250 ml @ 6.488 mls/ hr TITRATE IV Last administered on 10/16/16 09:48; Admin Dose 9.731 MLS/HR; Start 10/12/16 at 17:00 Ondansetron HCl (Zofran Inj) 4 mg Q6H PRN IV NAUSEA AND/OR VOMITING; Start 10/12 at 16:30 Pantoprazole (Protonix Iv) 40 mg DAILY@06 IV Last administered on 10/20/16 06: 31; Admin Dose 40 MG; Start 10/13/16 at 06:00 Furosemide (Lasix) 20 mg DAILY IV Last administered on 10/19/16 08:23; Admin Dose 20 MG; Start 10/12/16 at 21:00 Miscellaneous Information 1 ea NOTE XX ; Start 10/14/16 at 11:00 Glucose (Glutose) 15 gm Q15M PRN PO DECREASED GLUCOSE; Start 10/14/16 at 11:00 Glucose (Glutose) 22.5 gm Q15M PRN PO DECREASED GLUCOSE; Start 10/14/16 at 11: 00 Dextrose (D50w Syringe) 25 ml Q15M PRN IV DECREASED GLUCOSE; Start 10/14/16 at 11:00 Dextrose (D50w Syringe) 50 ml Q15M PRN IV DECREASED GLUCOSE; Start 10/14/16 at 11:00 Glucagon (Glucagen) 1 mg Q15M PRN IM DECREASED GLUCOSE; Start 10/14/16 at 11:00 Glucose (Glutose) 15 gm Q15M PRN BUCCAL DECREASED GLUCOSE; Start 10/14/16 at 11 :00 IV Flush (NS 10 ml) 10 ml PRN PRN IV FLUSH LINE; Start 10/15/16 at 12:00 Carvedilol (Coreg) 3.125 mg BID PO Last administered on 10/19/16t 21:11; Admin Dose 3.125 MG; Start 10/19/16 at 21:00 Lisinopril 2.5 mg 2.5 mg DAILY PO ; Start 10/20/16 at 09:00 Magnesium Sulfate 50 ml @ 25 mls/hr ONCE ONCE IVPB ; Start 10/20/16 at 07:00; Stop 10/20/16 at 08:59 Potassium Chloride (KCl 40 MEQ/250 ML NS) 250 ml @ 62.5 mls/hr ONCE ONCE IVPB ; Start 10/20/16 at 07:00; Stop 10/20/16 at 10:59 ROEL BLACK MD October 20, 2016 08:42
[2016-10-20 09:32] LABS: EOSINOPHILS # 0.4 10^3/ul (0.0-0.5); LYMPHOCYTES # 2.7 10^3/ul (0.8-2.9); MONOCYTE # 0.3 10^3/ul (0.3-0.9); NEUTROPHIL # 9.5 10^3/ul (1.6-7.5)
--- NOTE | 2016-10-20 10:17 | CONS ---
Date/Time of Note Date/Time of Note DATE: 10/20/16 TIME: 10:15 Assessment/Plan Assessment/Plan Additional Assessment/Plan Ventilator setting; AC of 16, tidal volume 500, PEEP of 5, 30% FiO2. Assessment recommendations; 1. Patient admitted for cardiac arrest status post CPR, status post hypothermia protocol. 2. Severe anoxic brain injury. 3. Patient off antibiotics now. Continue current treatment. Prognosis is dismal. CODE STATUS needs to be discussed with the family. Consultation Date/Type/Reason Admit Date/Time October 12, 2016 at 16:30 Type of Consultation: Pulmonary/critical care Referring Provider: TIFFANIE WILSON 24 HR Interval Summary Free Text/Dictation Patient condition remains critical. Remains essentially unresponsive other than minimal grimacing on deep sternal rubbing. Has remained hemodynamically stable. General exam; middle-aged male, orally intubated, unresponsive. Currently in no distress. Exam/Review of Systems Vital Signs Vitals Vital Signs Date Time Temp Pulse Resp B/P Pulse Ox O2 Delivery O2 Flow Rate FiO2 10/20/16 08:00 71 10/20/16 07:00 21 120/71 100 10/20/16 06:00 Mechanical Ventilator 10/20/16 05:37 30 10/20/16 04:00 98.5 Intake and Output 10/19/16 10/19/16 10/20/16 15:00 23:00 07:00 Intake Total 540 ml 540 ml 510 ml Output Total 1880 ml 515 ml 605 ml Balance -1340 ml 25 ml -95 ml Exam HEENT examination; supple neck, no JVD. No lymphadenopathy. Midline trachea. No thyromegaly. Orally intubated. Patient has fair dentition. Pupils are small bilaterally. Chest examination; clear to auscultation. S1-S2 audible, no murmurs. Regular rhythm. Abdomen examination; soft, nondistended. No organomegaly. Bowel sounds audible. Extremity examination; no peripheral edema. Pulses 1+ bilaterally. LICENSED INVESTMENT SALES ASSISTANT examination; patient remains essentially unresponsive. Results Result Diagram: 10/20/16 0405 10/20/16 0405 Results 24 hrs Laboratory Tests Test 10/20/16 04:05 White Blood Count 12.8 #H Red Blood Count 3.93 L Hemoglobin 10.8 L Hematocrit 34.2 L Mean Corpuscular Volume 87.0 Mean Corpuscular Hemoglobin 27.5 L Mean Corpuscular Hemoglobin Concent 31.6 L Red Cell Distribution Width 18.5 H Platelet Count 239 Mean Platelet Volume 11.4 H Neutrophils % 74.0 Lymphocytes % 21.0 Monocytes % 2.0 Eosinophils % 3.0 Nucleated Red Blood Cells % 1.0 H Neutrophils # 9.5 H Lymphocytes # 2.7 Monocytes # 0.3 Eosinophils # 0.4 Sodium Level 146 H Potassium Level 3.6 Chloride Level 110 Carbon Dioxide Level 25 Anion Gap 15 # Blood Urea Nitrogen 19 Creatinine 1.04 Glucose Level 137 Calcium Level 8.7 Magnesium Level 1.6 L Medications Medications Current Medications Acetaminophen (Tylenol Liquid) 650 mg Q4H PRN PO TEMP > 37C; Start 10/12/16 at 14:00 Meperidine HCl (Demerol) 12.5 mg Q4H PRN IV POST OPERATIVE SHIVERING; Start 10/12/16 at 14:00 Meperidine HCl 25 mg 25 mg Q4H PRN IV POST OPERATIVE SHIVERING; Start 10/12/16 at 14:00 Dopamine HCl/ Dextrose 250 ml @ 6.488 mls/ hr TITRATE IV Last administered on 10/16/16 09:48; Admin Dose 9.731 MLS/HR; Start 10/12/16 at 17:00 Ondansetron HCl (Zofran Inj) 4 mg Q6H PRN IV NAUSEA AND/OR VOMITING; Start 10/12 at 16:30 Pantoprazole (Protonix Iv) 40 mg DAILY@06 IV Last administered on 10/20/16 06: 31; Admin Dose 40 MG; Start 10/13/16 at 06:00 Furosemide (Lasix) 20 mg DAILY IV Last administered on 10/19/16 08:23; Admin Dose 20 MG; Start 10/12/16 at 21:00 Miscellaneous Information 1 ea NOTE XX ; Start 10/14/16 at 11:00 Glucose (Glutose) 15 gm Q15M PRN PO DECREASED GLUCOSE; Start 10/14/16 at 11:00 Glucose (Glutose) 22.5 gm Q15M PRN PO DECREASED GLUCOSE; Start 10/14/16 at 11: 00 Dextrose (D50w Syringe) 25 ml Q15M PRN IV DECREASED GLUCOSE; Start 10/14/16 at 11:00 Dextrose (D50w Syringe) 50 ml Q15M PRN IV DECREASED GLUCOSE; Start 10/14/16 at 11:00 Glucagon (Glucagen) 1 mg Q15M PRN IM DECREASED GLUCOSE; Start 10/14/16 at 11:00 Glucose (Glutose) 15 gm Q15M PRN BUCCAL DECREASED GLUCOSE; Start 10/14/16 at 11 :00 IV Flush (NS 10 ml) 10 ml PRN PRN IV FLUSH LINE; Start 10/15/16 at 12:00 Carvedilol (Coreg) 3.125 mg BID PO Last administered on 10/19/16t 21:11; Admin Dose 3.125 MG; Start 10/19/16 at 21:00 Lisinopril 2.5 mg 2.5 mg DAILY PO ; Start 10/20/16 at 09:00 Potassium Chloride (KCl 40 MEQ/250 ML NS) 250 ml @ 62.5 mls/hr ONCE ONCE IVPB ; Start 10/20/16 at 07:00; Stop 10/20/16 at 10:59 NEO HARRIS October 20, 2016 10:17
[2016-10-20] MEDS: LISINOPRIL 5 MG TAB PO SCH (10:26)
[2016-10-20] MEDS: FUROSEMIDE 20 MG INJ IV SCH (10:26)
--- NOTE | 2016-10-20 10:36 | RADRPT ---
PROCEDURE: Chest x-ray CLINICAL INDICATION: Elevated white count TECHNIQUE: Chest single view COMPARISON: 10/19/2016 FINDINGS: Endotracheal tube, nasogastric tube and left arm PICC line remain in good position. Stable mild car diomegaly. Pulmonary vessels are normal in caliber. There is questionable evolving retrocardiac in filtrate. Continued follow-up is recommended. Small right pleural effusion is seen. Left costophr enic angle sharp. IMPRESSION: 1. Endotracheal tube, nasogastric tube and left arm PICC line remain in good position. 2. Question evolving right retrocardiac infiltrate. Continued follow-up is recommended. 3. Trace right pleural effusion RPTAT: HH .Antonio Qiu MD, MD Date Time Electronically viewed and signed by .Antonio Qiu MD, on 10/20/2016 10:36 .W/
--- NOTE | 2016-10-20 11:27 | PN ---
Date/Time of Note Date/Time of Note DATE: 10/20/16 TIME: 11:12 Assessment/Plan VTE Prophylaxis VTE Prophylaxis Intervention: heparin Lines/Catheters IV Catheter Type (from Nrs): PICC Line Central line still needed: Yes Urinary Cath still in place: Yes Reason Cath still needed: other (indicate) Assessment/Plan Assessment/Plan Assessment/Plan 1. Cardiac arrest with return of circulation: ?2/2 arrythmia s/p hypothermia protocol 2. Anoxic encephalopathy EEG shows anoxic encephalopathy Neurology consultation appreciated, pt not brain Palliative Care consult appreciated Family is deciding about CODE STATUS and whether or not he would have wanted a tracheostomy, continue to follow up with them 3. Acute respiratory failure secondary to cardiac arrest Continue vent support and weaning , pulmonology consultation appreciated 4. History of nonischemic cardiomyopathy with ejection fraction of 25%.: remains on BID lasix 5. History of substance abuse. 6. Anemia, likely secondary to chronic disease. 7. History of schizophrenia. 8. S/p Febrile episode : ? SIRS, continue abx for now / d/c tylenol / repeat cultures / deescalate if no further fevers 9. Infiltrate on CXR: resp cultures 10. Diaphoresis / no fever : r/o ACS / blood cultures / monitor fever curve CC time : >35mins Prophylaxis: Sequential compression devices Subjective 24 Hr Interval Summary Free Text/Dictation patient is diaphoretic, not sure why Remains intubated and sedated on propofol Subjective hx not possible: pt non-verbal, pt critical status Exam/Review of Systems Vital Signs Vitals Vital Signs Date Time Temp Pulse Resp B/P Pulse Ox O2 Delivery O2 Flow Rate FiO2 10/20/16 08:00 71 10/20/16 07:00 21 120/71 100 10/20/16 06:00 Mechanical Ventilator 10/20/16 05:37 30 10/20/16 04:00 98.5 Intake and Output 10/19/16 10/19/16 10/20/16 15:00 23:00 07:00 Intake Total 540 ml 540 ml 510 ml Output Total 1880 ml 515 ml 605 ml Balance -1340 ml 25 ml -95 ml Exam Constitutional: No alert, No oriented, diaphoresis Eyes: PERRL, No icteric ENMT: intubated Respiratory: clear to auscultation, diminished breath sounds Cardiovascular: regular rate and rhythm, No murmurs/extra sounds Gastrointestinal: bowel sounds, distended (mildly), soft Genitourinary - Male: other (mild scrotal edema) Extremities: edema (mild in hands and feet) Neurological: unresponsive Results Result Diagram: 10/20/16 0405 10/20/16 0405 Results 24 hrs Laboratory Tests Test 10/20/16 04:05 White Blood Count 12.8 #H Red Blood Count 3.93 L Hemoglobin 10.8 L Hematocrit 34.2 L Mean Corpuscular Volume 87.0 Mean Corpuscular Hemoglobin 27.5 L Mean Corpuscular Hemoglobin Concent 31.6 L Red Cell Distribution Width 18.5 H Platelet Count 239 Mean Platelet Volume 11.4 H Neutrophils % 74.0 Lymphocytes % 21.0 Monocytes % 2.0 Eosinophils % 3.0 Nucleated Red Blood Cells % 1.0 H Neutrophils # 9.5 H Lymphocytes # 2.7 Monocytes # 0.3 Eosinophils # 0.4 Sodium Level 146 H Potassium Level 3.6 Chloride Level 110 Carbon Dioxide Level 25 Anion Gap 15 # Blood Urea Nitrogen 19 Creatinine 1.04 Glucose Level 137 Calcium Level 8.7 Magnesium Level 1.6 L Medications Medications Current Medications Acetaminophen (Tylenol Liquid) 650 mg Q4H PRN PO TEMP > 37C; Start 10/12/16 at 14:00 Meperidine HCl (Demerol) 12.5 mg Q4H PRN IV POST OPERATIVE SHIVERING; Start 10/12/16 at 14:00 Meperidine HCl 25 mg 25 mg Q4H PRN IV POST OPERATIVE SHIVERING; Start 10/12/16 at 14:00 Dopamine HCl/ Dextrose 250 ml @ 6.488 mls/ hr TITRATE IV Last administered on 10/16/16 09:48; Admin Dose 9.731 MLS/HR; Start 10/12/16 at 17:00 Ondansetron HCl (Zofran Inj) 4 mg Q6H PRN IV NAUSEA AND/OR VOMITING; Start 10/12 at 16:30 Pantoprazole (Protonix Iv) 40 mg DAILY@06 IV Last administered on 10/20/16 06: 31; Admin Dose 40 MG; Start 10/13/16 at 06:00 Furosemide (Lasix) 20 mg DAILY IV Last administered on 10/20/16 10:26; Admin Dose 20 MG; Start 10/12/16 at 21:00 Miscellaneous Information 1 ea NOTE XX ; Start 10/14/16 at 11:00 Glucose (Glutose) 15 gm Q15M PRN PO DECREASED GLUCOSE; Start 10/14/16 at 11:00 Glucose (Glutose) 22.5 gm Q15M PRN PO DECREASED GLUCOSE; Start 10/14/16 at 11: 00 Dextrose (D50w Syringe) 25 ml Q15M PRN IV DECREASED GLUCOSE; Start 10/14/16 at 11:00 Dextrose (D50w Syringe) 50 ml Q15M PRN IV DECREASED GLUCOSE; Start 10/14/16 at 11:00 Glucagon (Glucagen) 1 mg Q15M PRN IM DECREASED GLUCOSE; Start 10/14/16 at 11:00 Glucose (Glutose) 15 gm Q15M PRN BUCCAL DECREASED GLUCOSE; Start 10/14/16 at 11 :00 IV Flush (NS 10 ml) 10 ml PRN PRN IV FLUSH LINE; Start 10/15/16 at 12:00 Carvedilol (Coreg) 3.125 mg BID PO Last administered on 10/20/16 10:26; Admin Dose 3.125 MG; Start 10/19/16 at 21:00 Lisinopril (Zestril) 2.5 mg DAILY PO Last administered on 10/20/16 10:26; Admin Dose 2.5 MG; Start 10/20/16 at 09:00 Procedures Procedures PROCEDURE: Chest x-ray CLINICAL INDICATION: Elevated white count TECHNIQUE: Chest single view COMPARISON: 10/19/2016 FINDINGS: Endotracheal tube, nasogastric tube and left arm PICC line remain in good position. Stable mild cardiomegaly. Pulmonary vessels are normal in caliber. There is questionable evolving retrocardiac infiltrate. Continued follow-up is recommended. Small right pleural effusion is seen. Left costophrenic angle sharp. IMPRESSION: 1. Endotracheal tube, nasogastric tube and left arm PICC line remain in good position. 2. Question evolving right retrocardiac infiltrate. Continued follow-up is recommended. 3. Trace right pleural effusion RPTAT: .Antonio Qiu MD, MD Date Time Electronically viewed and signed by .Antonio Qiu MD, MD on 10/20/2016 10:36 .W/ CC: LEILANI HUGHES BOLATITO M. October 20, 2016 11:23
[2016-10-20 12:25] LABS: ADD UMIC NO; URINE BILIRUBIN (Dip) NEGATIVE (NEGATIVE); URINE BLOOD (Dip) NEGATIVE (NEGATIVE); URINE COLOR LT. YELLOW (YELLOW); URINE GLUCOSE (Dip) NEGATIVE (NEGATIVE); URINE KETONES (Dip) NEGATIVE (NEGATIVE); URINE LEUKOCYTE ESTERASE (Dip) NEGATIVE (NEGATIVE); URINE NITRITE (Dip) NEGATIVE (NEGATIVE); URINE TOTAL PROTEIN (Dip) NEGATIVE (NEGATIVE); URINE UROBILINOGEN (Dip) 1.0 E.U./dL (0.1-1.0)
[2016-10-20 12:30] LABS: CREATINE KINASE 46 IU/L (23-200)
[2016-10-20 12:32] LABS: CK-MB 0.31 ng/ml (0.0-2.4)
[2016-10-20 12:36] LABS: TROPONIN-I < 0.012 ng/ml (0.00-0.12)
[2016-10-20] MEDS: HEPARIN 5,000 UNIT/0.5 ML VIAL SC SCH ×2 (13:26→21:03)
[2016-10-20 17:17] LABS: CREATINE KINASE 44 IU/L (23-200)
[2016-10-20 17:59] LABS: TROPONIN-I < 0.012 ng/ml (0.00-0.12)
[2016-10-20 18:00] LABS: CK-MB 0.33 ng/ml (0.0-2.4)
[2016-10-21] VITALS (36 sets, daily range): BP systolic 97–129; BP diastolic 72–96; PULSE 58–69; RESP 12–24
[2016-10-21 04:57] LABS: ADD SCAN DIFF NO
[2016-10-21 05:06] LABS: BASOPHILS % 0.3 % (0.0-2.0); EOSINOPHILS # 0.2 10^3/ul (0.0-0.5); EOSINOPHILS % 1.2 % (0.0-7.0); HEMATOCRIT 35.8 % (42.0-52.0); HEMOGLOBIN 11.3 g/dl (14.0-18.0); LYMPHOCYTES # 2.6 10^3/ul (0.8-2.9); LYMPHOCYTES % 18.3 % (15.0-51.0); MEAN CORPUSCULAR HEMOGLOBIN 27.4 pg (29.0-33.0); MEAN CORPUSCULAR HGB CONC 31.6 g/dl (32.0-37.0); MEAN CORPUSCULAR VOLUME 86.7 fl (82.0-101.0); MEAN PLATELET VOLUME 11.4 fl (7.4-10.4); MONOCYTE # 0.6 10^3/ul (0.3-0.9); NEUTROPHIL # 10.5 10^3/ul (1.6-7.5); NEUTROPHILS % 75.3 % (39.0-77.0); PLATELET COUNT 270 10^3/UL (140-415); RED BLOOD COUNT 4.13 10^6/ul (4.70-6.10); RED CELL DISTRIBUTION WIDTH 18.5 % (11.5-14.5); WHITE BLOOD COUNT 13.9 10^3/ul (4.8-10.8)
[2016-10-21 05:31] LABS: POTASSIUM 3.8 mmol/L (3.5-5.1)
[2016-10-21 05:33] LABS: CREATININE 1.07 mg/dl (0.61-1.24)
[2016-10-21] MEDS: PANTOPRAZOLE 40 MG INJ IV SCH (06:05)
[2016-10-21] MEDS: FUROSEMIDE 20 MG INJ IV SCH (08:31)
[2016-10-21] MEDS: LISINOPRIL 5 MG TAB PO SCH (08:31)
[2016-10-21] MEDS: HEPARIN 5,000 UNIT/0.5 ML VIAL SC SCH ×2 (08:32→20:03)
--- NOTE | 2016-10-21 10:06 | PN ---
Date/Time of Note Date/Time of Note DATE: 10/21/16 TIME: 09:59 Assessment/Plan VTE Prophylaxis VTE Prophylaxis Intervention: heparin Lines/Catheters IV Catheter Type (from Nrs): PICC Line Central line still needed: Yes Urinary Cath still in place: Yes Reason Cath still needed: other (indicate) Assessment/Plan Assessment/Plan 1. Cardiac arrest with return of circulation: ?2/2 arrhythmia s/p hypothermia protocol 2. Anoxic encephalopathy EEG shows anoxic encephalopathy Neurology consultation appreciated, pt not brain Palliative Care consult appreciated Family is deciding about CODE STATUS and whether or not he would have wanted a tracheostomy, continue to follow up with them 3. Acute respiratory failure secondary to cardiac arrest Continue vent support and weaning , pulmonology consultation appreciated 4. History of nonischemic cardiomyopathy with ejection fraction of 25%.: remains on BID lasix 5. History of substance abuse. 6. Anemia, likely secondary to chronic disease. 7. History of schizophrenia. 8. S/p Febrile episode : ? SIRS /de-escalate antibiotics 9. Infiltrate on CXR: resp cultures still pending. 10. Diaphoresis / no fever : Improved/no further fevers/blood cultures likely contaminant, I will however follow-up. Disposition: * Patient remains unresponsive despite being off sedation. * Family meeting planned with palliative care team at 11:00 today. Follow-up conclusion. CC time : >35mins Prophylaxis: Sequential compression devices Subjective 24 Hr Interval Summary Free Text/Dictation Patient seen and evaluated Nursing reports no acute overnight events. No further diaphoresis. Subjective hx not possible: pt non-verbal, pt critical status Exam/Review of Systems Vital Signs Vitals Vital Signs Date Time Temp Pulse Resp B/P Pulse Ox O2 Delivery O2 Flow Rate FiO2 10/21/16 09:00 69 16 120/83 97 Mechanical Ventilator 10/21/16 08:00 98.5 10/21/16 08:00 30 Intake and Output 10/20/16 10/20/16 10/21/16 15:00 23:00 07:00 Intake Total 840 ml 540 ml 540 ml Output Total 975 ml 645 ml 415 ml Balance -135 ml -105 ml 125 ml Exam Constitutional: No alert, No oriented Eyes: PERRL, sluggish No icteric ENMT: intubated Respiratory: clear to auscultation, diminished breath sounds Cardiovascular: regular rate and rhythm, No murmurs/extra sounds Gastrointestinal: bowel sounds, distended (mildly), soft Genitourinary - Male: other (mild scrotal edema) Extremities: edema (mild in hands and feet) Neurological: unresponsive, patient has been off sedation for a couple of days , has no gag reflex, and has very sluggish pupils Results Result Diagram: 10/21/16 0425 10/21/16 0425 Results 24 hrs Laboratory Tests Test 10/20/16 11:30 10/20/16 11:39 10/20/16 16:50 10/21/16 04:25 Urine Color LT. YELLOW Urine Clarity CLEAR Urine pH 6.0 Urine Specific [place] 1.010 Urine Ketones NEGATIVE Urine Nitrite NEGATIVE Urine Bilirubin NEGATIVE Urine Urobilinogen 1.0 E.U./dL Urine Leukocyte Esterase NEGATIVE Urine Hemoglobin NEGATIVE Urine Glucose NEGATIVE Urine Total Protein NEGATIVE Creatine Kinase 46 44 Creatine Kinase Index 0.7 0.8 Creatinine Kinase MB (Mass) 0.31 0.33 Troponin I < 0.012 < 0.012 White Blood Count 13.9 H Red Blood Count 4.13 L Hemoglobin 11.3 L Hematocrit 35.8 L Mean Corpuscular Volume 86.7 Mean Corpuscular Hemoglobin 27.4 L Mean Corpuscular Hemoglobin Concent 31.6 L Red Cell Distribution Width 18.5 H Platelet Count 270 Mean Platelet Volume 11.4 H Neutrophils % 75.3 Lymphocytes % 18.3 Monocytes % 4.0 Eosinophils % 1.2 Basophils % 0.3 Nucleated Red Blood Cells % 0.0 Neutrophils # 10.5 H Lymphocytes # 2.6 Monocytes # 0.6 Eosinophils # 0.2 Basophils # 0.0 Nucleated Red Blood Cells # 0.0 Sodium Level 145 H Potassium Level 3.8 Chloride Level 110 Carbon Dioxide Level 23 Anion Gap 16 Blood Urea Nitrogen 19 Creatinine 1.07 Glucose Level 153 Calcium Level 9.0 Magnesium Level 2.0 Medications Medications Current Medications Acetaminophen (Tylenol Liquid) 650 mg Q4H PRN PO TEMP > 37C; Start 10/12/16 at 14:00 Meperidine HCl (Demerol) 12.5 mg Q4H PRN IV POST OPERATIVE SHIVERING; Start 10/12/16 at 14:00 Meperidine HCl 25 mg 25 mg Q4H PRN IV POST OPERATIVE SHIVERING; Start 10/12/16 at 14:00 Dopamine HCl/ Dextrose 250 ml @ 6.488 mls/ hr TITRATE IV Last administered on 10/16/16 09:48; Admin Dose 9.731 MLS/HR; Start 10/12/16 at 17:00 Ondansetron HCl (Zofran Inj) 4 mg Q6H PRN IV NAUSEA AND/OR VOMITING; Start 10/12 at 16:30 Pantoprazole (Protonix Iv) 40 mg DAILY@06 IV Last administered on 10/21/16 06: 05; Admin Dose 40 MG; Start 10/13/16 at 06:00 Furosemide (Lasix) 20 mg DAILY IV Last administered on 10/21/16 08:31; Admin Dose 20 MG; Start 10/12/16 at 21:00 Miscellaneous Information 1 ea NOTE XX ; Start 10/14/16 at 11:00 Glucose (Glutose) 15 gm Q15M PRN PO DECREASED GLUCOSE; Start 10/14/16 at 11:00 Glucose (Glutose) 22.5 gm Q15M PRN PO DECREASED GLUCOSE; Start 10/14/16 at 11: 00 Dextrose (D50w Syringe) 25 ml Q15M PRN IV DECREASED GLUCOSE; Start 10/14/16 at 11:00 Dextrose (D50w Syringe) 50 ml Q15M PRN IV DECREASED GLUCOSE; Start 10/14/16 at 11:00 Glucagon (Glucagen) 1 mg Q15M PRN IM DECREASED GLUCOSE; Start 10/14/16 at 11:00 Glucose (Glutose) 15 gm Q15M PRN BUCCAL DECREASED GLUCOSE; Start 10/14/16 at 11 :00 IV Flush (NS 10 ml) 10 ml PRN PRN IV FLUSH LINE; Start 10/15/16 at 12:00 Carvedilol (Coreg) 3.125 mg BID PO Last administered on 10/21/16 08:31; Admin Dose 3.125 MG; Start 10/19/16 at 21:00 Lisinopril (Zestril) 2.5 mg DAILY PO Last administered on 10/21/16 08:31; Admin Dose 2.5 MG; Start 10/20/16 at 09:00 Heparin Sodium (Porcine) (Heparin (5000 Units/0.5 ml)) 5,000 unit BID SC Last administered on 10/21/16 08:32; Admin Dose 5,000 UNIT; Start 10/20/16 at 12:00 Procedures Procedures PROCEDURE: Chest x-ray CLINICAL INDICATION: Elevated white count TECHNIQUE: Chest single view COMPARISON: 10/19/2016 FINDINGS: Endotracheal tube, nasogastric tube and left arm PICC line remain in good position. Stable mild cardiomegaly. Pulmonary vessels are normal in caliber. There is questionable evolving retrocardiac infiltrate. Continued follow-up is recommended. Small right pleural effusion is seen. Left costophrenic angle sharp. IMPRESSION: 1. Endotracheal tube, nasogastric tube and left arm PICC line remain in good position. 2. Question evolving right retrocardiac infiltrate. Continued follow-up is recommended. 3. Trace right pleural effusion RPTAT: HH .Antonio Qiu MD, Date Time Electronically viewed and signed by .Antonio Qiu MD, on 10/20/2016 10:36 .W/ CC: LEILANI HUGHES Repeat blood cultures growing gram-positive cocci in clusters 1 out of 2 bottles , likely contaminant. ENA WU October 21, 2016 10:06
--- NOTE | 2016-10-21 10:33 | CONS ---
Date/Time of Note Date/Time of Note DATE: 10/21/16 TIME: 10:31 Assessment/Plan Assessment/Plan Additional Assessment/Plan Ventilator setting; AC of 16, tidal volume 500, PEEP of 5, 30% FiO2. Assessment recommendations; 1. Patient admitted with respiratory failure due to cardiac arrest with resulting severe anoxic encephalopathy. 2. Possibly some element of aspiration pneumonia with marked radiological improvement, patient off antibiotics now. Continue current supportive care. Prognosis is dismal. Family needs to decide about tracheostomy versus terminal extubation. Consultation Date/Type/Reason Admit Date/Time October 12, 2016 at 16:30 Type of Consultation: Pulmonary/critical care Referring Provider: TIFFANIE WILSON 24 HR Interval Summary Free Text/Dictation Patient's condition remains critical. Remains essentially unresponsive to any commands. However patient does have spontaneous bodily movements which are unpurposeful. Has remained hemodynamically stable. General exam; middle-aged male, orally intubated, unresponsive. Currently in no distress. Exam/Review of Systems Vital Signs Vitals Vital Signs Date Time Temp Pulse Resp B/P Pulse Ox O2 Delivery O2 Flow Rate FiO2 10/21/16 09:00 69 16 120/83 97 Mechanical Ventilator 10/21/16 08:00 98.5 10/21/16 08:00 30 Intake and Output 10/20/16 10/20/16 10/21/16 15:00 23:00 07:00 Intake Total 840 ml 540 ml 540 ml Output Total 975 ml 645 ml 415 ml Balance -135 ml -105 ml 125 ml Exam HEENT exam; supple neck, no JVD. No lymphadenopathy. Midline trachea. No thyromegaly. Orally intubated. Pupils are small bilaterally. Patient has fair dentition. Chest examination; clear to auscultation. S1-S2 audible, no murmurs. Regular rhythm. Abdomen examination; soft, nondistended. No organomegaly. Bowel sounds audible. Extremity examination; no peripheral edema. Pulses 1+ bilaterally. No clubbing. LABOR CUSTODIAN examination; patient remains unresponsive to any commands. Results Result Diagram: 10/21/16 0425 10/21/16 0425 Results 24 hrs Laboratory Tests Test 10/20/16 11:30 10/20/16 11:39 10/20/16 16:50 10/21/16 04:25 Urine Color LT. YELLOW Urine Clarity CLEAR Urine pH 6.0 Urine Specific [place] 1.010 Urine Ketones NEGATIVE Urine Nitrite NEGATIVE Urine Bilirubin NEGATIVE Urine Urobilinogen 1.0 E.U./dL Urine Leukocyte Esterase NEGATIVE Urine Hemoglobin NEGATIVE Urine Glucose NEGATIVE Urine Total Protein NEGATIVE Creatine Kinase 46 44 Creatine Kinase Index 0.7 0.8 Creatinine Kinase MB (Mass) 0.31 0.33 Troponin I < 0.012 < 0.012 White Blood Count 13.9 H Red Blood Count 4.13 L Hemoglobin 11.3 L Hematocrit 35.8 L Mean Corpuscular Volume 86.7 Mean Corpuscular Hemoglobin 27.4 L Mean Corpuscular Hemoglobin Concent 31.6 L Red Cell Distribution Width 18.5 H Platelet Count 270 Mean Platelet Volume 11.4 H Neutrophils % 75.3 Lymphocytes % 18.3 Monocytes % 4.0 Eosinophils % 1.2 Basophils % 0.3 Nucleated Red Blood Cells % 0.0 Neutrophils # 10.5 H Lymphocytes # 2.6 Monocytes # 0.6 Eosinophils # 0.2 Basophils # 0.0 Nucleated Red Blood Cells # 0.0 Sodium Level 145 H Potassium Level 3.8 Chloride Level 110 Carbon Dioxide Level 23 Anion Gap 16 Blood Urea Nitrogen 19 Creatinine 1.07 Glucose Level 153 Calcium Level 9.0 Magnesium Level 2.0 Medications Medications Current Medications Acetaminophen (Tylenol Liquid) 650 mg Q4H PRN PO TEMP > 37C; Start 10/12/16 at 14:00 Meperidine HCl (Demerol) 12.5 mg Q4H PRN IV POST OPERATIVE SHIVERING; Start 10/12/16 at 14:00 Meperidine HCl 25 mg 25 mg Q4H PRN IV POST OPERATIVE SHIVERING; Start 10/12/16 at 14:00 Dopamine HCl/ Dextrose 250 ml @ 6.488 mls/ hr TITRATE IV Last administered on 10/16/16 09:48; Admin Dose 9.731 MLS/HR; Start 10/12/16 at 17:00 Ondansetron HCl (Zofran Inj) 4 mg Q6H PRN IV NAUSEA AND/OR VOMITING; Start 10/12 at 16:30 Pantoprazole (Protonix Iv) 40 mg DAILY@06 IV Last administered on 10/21/16 06: 05; Admin Dose 40 MG; Start 10/13/16 at 06:00 Furosemide (Lasix) 20 mg DAILY IV Last administered on 10/21/16 08:31; Admin Dose 20 MG; Start 10/12/16 at 21:00 Miscellaneous Information 1 ea NOTE XX ; Start 10/14/16 at 11:00 Glucose (Glutose) 15 gm Q15M PRN PO DECREASED GLUCOSE; Start 10/14/16 at 11:00 Glucose (Glutose) 22.5 gm Q15M PRN PO DECREASED GLUCOSE; Start 10/14/16 at 11: 00 Dextrose (D50w Syringe) 25 ml Q15M PRN IV DECREASED GLUCOSE; Start 10/14/16 at 11:00 Dextrose (D50w Syringe) 50 ml Q15M PRN IV DECREASED GLUCOSE; Start 10/14/16 at 11:00 Glucagon (Glucagen) 1 mg Q15M PRN IM DECREASED GLUCOSE; Start 10/14/16 at 11:00 Glucose (Glutose) 15 gm Q15M PRN BUCCAL DECREASED GLUCOSE; Start 10/14/16 at 11 :00 IV Flush (NS 10 ml) 10 ml PRN PRN IV FLUSH LINE; Start 10/15/16 at 12:00 Carvedilol (Coreg) 3.125 mg BID PO Last administered on 10/21/16 08:31; Admin Dose 3.125 MG; Start 10/19/16 at 21:00 Lisinopril (Zestril) 2.5 mg DAILY PO Last administered on 10/21/16 08:31; Admin Dose 2.5 MG; Start 10/20/16 at 09:00 Heparin Sodium (Porcine) (Heparin (5000 Units/0.5 ml)) 5,000 unit BID SC Last administered on 10/21/16 08:32; Admin Dose 5,000 UNIT; Start 10/20/16 at 12:00 NEO HARRIS October 21, 2016 10:33
--- NOTE | 2016-10-21 15:32 | CONS ---
Date/Time of Note Date/Time of Note DATE: 10/21/16 TIME: 15:26 Assessment/Plan Assessment/Plan Chief Complaint/Hosp Course IMPRESSION: 1. Cardiac arrest-? primary arrythmic event 2. Cardiomyopathy with severely depressed left ventricular ejection fraction. 3. Congestive heart failure, systolic, acute on chronic. 4. Respiratory failure, status post intubation. 5. Encephalopathy. 6. Anemia. 7. Cerebral edema. 8. Initial acidosis, improving. 9. History of ventricular tachycardia. 10. History of substance abuse. 11.Encephalopathy-s/p EEG toxic-metabolic REcc: -Tele -serial ecg's -Continue lasix and follow volume status closely -Continue abx's and f/u cx data -Follow MS closely -Low dose ACEI/BB as tolerated for treatment of cardiomyopathy -Family conference pnding to decide direction of care Problems: Consultation Date/Type/Reason Admit Date/Time October 12, 2016 at 16:30 Initial Consult Date 10/12/2016 Type of Consultation: Cardiology Reason for Consultation cardiac arrest Referring Provider: TIFFANIE WILSON Exam/Review of Systems Vital Signs Vitals Vital Signs Date Time Temp Pulse Resp B/P Pulse Ox O2 Delivery O2 Flow Rate FiO2 10/21/16 13:30 66 18 99 30 10/21/16 13:00 117/84 Mechanical Ventilator 10/21/16 12:00 98.3 Intake and Output 10/20/16 10/20/16 10/21/16 15:00 23:00 07:00 Intake Total 840 ml 540 ml 540 ml Output Total 975 ml 645 ml 415 ml Balance -135 ml -105 ml 125 ml Exam Review of Systems: CONSTITUTIONAL: No fevers, chills. PULMONARY:intubated CARDIOVASCULAR: No obvious chest pain/palpitations GASTROINTESTINAL: No nausea/vomiting. GENITOURINARY: No hematuria/dysuria. MUSCULOSKELETAL: No obvious myagias/arthalgias. PSYCHIATRIC: The patient denies depression. NEUROLOGIC: Encephalopathy Constitutional: other (encephalopathic) Psych: no complaints Head: normocephalic Eyes: nl conjunctiva ENMT: mucosa pink and moist Neck: jvd, supple Respiratory: diminished breath sounds (at bases) Cardiovascular: regular rate and rhythm Gastrointestinal: non-tender, soft Musculoskeletal: muscle weakness (generalized) Extremities: edema (trace/B) Neurological: confused Results Result Diagram: 10/21/16 0425 10/21/16 0425 Results 24 hrs Laboratory Tests Test 10/20/16 16:50 10/21/16 04:25 Creatine Kinase 44 Creatine Kinase Index 0.8 Creatinine Kinase MB (Mass) 0.33 Troponin I < 0.012 White Blood Count 13.9 H Red Blood Count 4.13 L Hemoglobin 11.3 L Hematocrit 35.8 L Mean Corpuscular Volume 86.7 Mean Corpuscular Hemoglobin 27.4 L Mean Corpuscular Hemoglobin Concent 31.6 L Red Cell Distribution Width 18.5 H Platelet Count 270 Mean Platelet Volume 11.4 H Neutrophils % 75.3 Lymphocytes % 18.3 Monocytes % 4.0 Eosinophils % 1.2 Basophils % 0.3 Nucleated Red Blood Cells % 0.0 Neutrophils # 10.5 H Lymphocytes # 2.6 Monocytes # 0.6 Eosinophils # 0.2 Basophils # 0.0 Nucleated Red Blood Cells # 0.0 Sodium Level 145 H Potassium Level 3.8 Chloride Level 110 Carbon Dioxide Level 23 Anion Gap 16 Blood Urea Nitrogen 19 Creatinine 1.07 Glucose Level 153 Calcium Level 9.0 Magnesium Level 2.0 Medications Medications Current Medications Acetaminophen (Tylenol Liquid) 650 mg Q4H PRN PO TEMP > 37C; Start 10/12/16 at 14:00 Meperidine HCl (Demerol) 12.5 mg Q4H PRN IV POST OPERATIVE SHIVERING; Start 10/12/16 at 14:00 Meperidine HCl 25 mg 25 mg Q4H PRN IV POST OPERATIVE SHIVERING; Start 10/12/16 at 14:00 Dopamine HCl/ Dextrose 250 ml @ 6.488 mls/ hr TITRATE IV Last administered on 10/16/16 09:48; Admin Dose 9.731 MLS/HR; Start 10/12/16 at 17:00 Ondansetron HCl (Zofran Inj) 4 mg Q6H PRN IV NAUSEA AND/OR VOMITING; Start 10/12 at 16:30 Pantoprazole (Protonix Iv) 40 mg DAILY@06 IV Last administered on 10/21/16 06: 05; Admin Dose 40 MG; Start 10/13/16 at 06:00 Furosemide (Lasix) 20 mg DAILY IV Last administered on 10/21/16 08:31; Admin Dose 20 MG; Start 10/12/16 at 21:00 Miscellaneous Information 1 ea NOTE XX ; Start 10/14/16 at 11:00 Glucose (Glutose) 15 gm Q15M PRN PO DECREASED GLUCOSE; Start 10/14/16 at 11:00 Glucose (Glutose) 22.5 gm Q15M PRN PO DECREASED GLUCOSE; Start 10/14/16 at 11: 00 Dextrose (D50w Syringe) 25 ml Q15M PRN IV DECREASED GLUCOSE; Start 10/14/16 at 11:00 Dextrose (D50w Syringe) 50 ml Q15M PRN IV DECREASED GLUCOSE; Start 10/14/16 at 11:00 Glucagon (Glucagen) 1 mg Q15M PRN IM DECREASED GLUCOSE; Start 10/14/16 at 11:00 Glucose (Glutose) 15 gm Q15M PRN BUCCAL DECREASED GLUCOSE; Start 10/14/16 at 11 :00 IV Flush (NS 10 ml) 10 ml PRN PRN IV FLUSH LINE; Start 10/15/16 at 12:00 Carvedilol (Coreg) 3.125 mg BID PO Last administered on 10/21/16 08:31; Admin Dose 3.125 MG; Start 10/19/16 at 21:00 Lisinopril (Zestril) 2.5 mg DAILY PO Last administered on 10/21/16 08:31; Admin Dose 2.5 MG; Start 10/20/16 at 09:00 Heparin Sodium (Porcine) (Heparin (5000 Units/0.5 ml)) 5,000 unit BID SC Last administered on 10/21/16 08:32; Admin Dose 5,000 UNIT; Start 10/20/16 at 12:00 DEXTER ZAMORANO October 21, 2016 15:32
[2016-10-22] VITALS (36 sets, daily range): BP systolic 99–128; BP diastolic 70–89; PULSE 56–67; RESP 12–20
[2016-10-22 04:48] LABS: ADD SCAN DIFF NO; BASOPHILS % 0.2 % (0.0-2.0); EOSINOPHILS # 0.1 10^3/ul (0.0-0.5); EOSINOPHILS % 0.8 % (0.0-7.0); HEMATOCRIT 35.8 % (42.0-52.0); HEMOGLOBIN 11.2 g/dl (14.0-18.0); LYMPHOCYTES # 1.9 10^3/ul (0.8-2.9); LYMPHOCYTES % 13.1 % (15.0-51.0); MEAN CORPUSCULAR HEMOGLOBIN 27.2 pg (29.0-33.0); MEAN CORPUSCULAR HGB CONC 31.3 g/dl (32.0-37.0); MEAN CORPUSCULAR VOLUME 86.9 fl (82.0-101.0); MONOCYTE # 0.5 10^3/ul (0.3-0.9); MONOCYTES % 3.4 % (0.0-11.0); NEUTROPHIL # 11.7 10^3/ul (1.6-7.5); NEUTROPHILS % 81.7 % (39.0-77.0); PLATELET COUNT 264 10^3/UL (140-415); RED BLOOD COUNT 4.12 10^6/ul (4.70-6.10); RED CELL DISTRIBUTION WIDTH 18.6 % (11.5-14.5); WHITE BLOOD COUNT 14.4 10^3/ul (4.8-10.8)
[2016-10-22] MEDS: PANTOPRAZOLE 40 MG INJ IV SCH (05:12)
[2016-10-22 05:14] LABS: POTASSIUM 3.8 mmol/L (3.5-5.1)
[2016-10-22] MEDS: FUROSEMIDE 20 MG INJ IV SCH (09:10)
[2016-10-22] MEDS: LISINOPRIL 5 MG TAB PO SCH (09:11)
[2016-10-22] MEDS: HEPARIN 5,000 UNIT/0.5 ML VIAL SC SCH ×3 (09:12→21:35)
--- NOTE | 2016-10-22 10:19 | CONS ---
Date/Time of Note Date/Time of Note DATE: 10/22/16 TIME: 10:16 Assessment/Plan Assessment/Plan Additional Assessment/Plan Ventilator setting; AC of 16, tidal volume 500, PEEP of 5, 30% FiO2. Assessment recommendations; 1. Patient admitted for cardiac arrest status post along CPR. Status post hypothermia protocol. 2. Severe anoxic brain injury. 3. Patient off antibiotics now possibly had some element of aspiration pneumonia with marked radiological improvement. Continue current treatment. A family conference needs to take place regarding further plan of care. Patient's prognosis is dismal. Consultation Date/Type/Reason Admit Date/Time October 12, 2016 at 16:30 Type of Consultation: Pulmonary/critical care Referring Provider: TIFFANIE WILSON 24 HR Interval Summary Free Text/Dictation Patient's condition is critical. Remains unresponsive. Has remained hemodynamically stable. General exam; middle-aged male, orally intubated, unresponsive, currently in no distress. Exam/Review of Systems Vital Signs Vitals Vital Signs Date Time Temp Pulse Resp B/P Pulse Ox O2 Delivery O2 Flow Rate FiO2 10/22/16 08:00 62 10/22/16 08:00 98.2 18 123/87 100 Mechanical Ventilator 10/22/16 05:51 30 Intake and Output 10/21/16 10/21/16 10/22/16 15:00 23:00 07:00 Intake Total 540 ml 600 ml 570 ml Output Total 915 ml 470 ml 395 ml Balance -375 ml 130 ml 175 ml Exam HEENT exam is; supple neck, no JVD. No lymphadenopathy. Midline trachea. No thyromegaly. Pupils are small bilaterally. Orally intubated. Chest examination; clear to auscultation. S1-S2 audible, no murmurs. Regular rhythm. Abdomen examination; soft, nondistended. No organomegaly. Bowel sounds audible. Extremity examination; no peripheral edema. Pulses 1+ bilaterally. INSURANCE ASSISTANT examination; patient is unresponsive. Results Result Diagram: 10/22/16 0400 10/22/16 0500 Results 24 hrs Laboratory Tests Test 10/22/16 01:08 10/22/16 04:00 10/22/16 05:00 Bedside Glucose 133 White Blood Count 14.4 H Red Blood Count 4.12 L Hemoglobin 11.2 L Hematocrit 35.8 L Mean Corpuscular Volume 86.9 Mean Corpuscular Hemoglobin 27.2 L Mean Corpuscular Hemoglobin Concent 31.3 L Red Cell Distribution Width 18.6 H Platelet Count 264 Mean Platelet Volume 11.0 H Neutrophils % 81.7 H Lymphocytes % 13.1 L Monocytes % 3.4 Eosinophils % 0.8 Basophils % 0.2 Nucleated Red Blood Cells % 0.0 Neutrophils # 11.7 H Lymphocytes # 1.9 Monocytes # 0.5 Eosinophils # 0.1 Basophils # 0.0 Nucleated Red Blood Cells # 0.0 Sodium Level 142 Potassium Level 3.8 Chloride Level 112 H Carbon Dioxide Level 23 Anion Gap 11 Blood Urea Nitrogen 19 Creatinine 1.00 Glucose Level 160 Calcium Level 9.0 Medications Medications Current Medications Acetaminophen (Tylenol Liquid) 650 mg Q4H PRN PO TEMP > 37C; Start 10/12/16 at 14:00 Meperidine HCl (Demerol) 12.5 mg Q4H PRN IV POST OPERATIVE SHIVERING; Start 10/12/16 at 14:00 Meperidine HCl 25 mg 25 mg Q4H PRN IV POST OPERATIVE SHIVERING; Start 10/12/16 at 14:00 Dopamine HCl/ Dextrose 250 ml @ 6.488 mls/ hr TITRATE IV Last administered on 10/16/16 09:48; Admin Dose 9.731 MLS/HR; Start 10/12/16 at 17:00 Ondansetron HCl (Zofran Inj) 4 mg Q6H PRN IV NAUSEA AND/OR VOMITING; Start 10/12 at 16:30 Pantoprazole (Protonix Iv) 40 mg DAILY@06 IV Last administered on 10/22/16 05: 12; Admin Dose 40 MG; Start 10/13/16 at 06:00 Furosemide (Lasix) 20 mg DAILY IV Last administered on 10/22/16 09:10; Admin Dose 20 MG; Start 10/12/16 at 21:00 Miscellaneous Information 1 ea NOTE XX ; Start 10/14/16 at 11:00 Glucose (Glutose) 15 gm Q15M PRN PO DECREASED GLUCOSE; Start 10/14/16 at 11:00 Glucose (Glutose) 22.5 gm Q15M PRN PO DECREASED GLUCOSE; Start 10/14/16 at 11: 00 Dextrose (D50w Syringe) 25 ml Q15M PRN IV DECREASED GLUCOSE; Start 10/14/16 at 11:00 Dextrose (D50w Syringe) 50 ml Q15M PRN IV DECREASED GLUCOSE; Start 10/14/16 at 11:00 Glucagon (Glucagen) 1 mg Q15M PRN IM DECREASED GLUCOSE; Start 10/14/16 at 11:00 Glucose (Glutose) 15 gm Q15M PRN BUCCAL DECREASED GLUCOSE; Start 10/14/16 at 11 :00 IV Flush (NS 10 ml) 10 ml PRN PRN IV FLUSH LINE; Start 10/15/16 at 12:00 Carvedilol (Coreg) 3.125 mg BID PO Last administered on 10/22/16 09:11; Admin Dose 3.125 MG; Start 10/19/16 at 21:00 Lisinopril (Zestril) 2.5 mg DAILY PO Last administered on 10/22/16 09:11; Admin Dose 2.5 MG; Start 10/20/16 at 09:00 Heparin Sodium (Porcine) (Heparin (5000 Units/0.5 ml)) 5,000 unit BID SC Last administered on 10/22/16 09:12; Admin Dose 5,000 UNIT; Start 10/20/16 at 12:00 NOE HARRIS October 22, 2016 10:19
[2016-10-22] MEDS ORDERED: VANCOMYCIN IV PER PHARMACY XX SCH (10:30)
--- NOTE | 2016-10-22 10:34 | PN ---
Date/Time of Note Date/Time of Note DATE: 10/22/16 TIME: 10:25 Assessment/Plan VTE Prophylaxis VTE Prophylaxis Intervention: heparin Lines/Catheters IV Catheter Type (from Nrs): PICC Line Central line still needed: Yes Urinary Cath still in place: Yes Reason Cath still needed: terminal illness/intractable pain Assessment/Plan Assessment/Plan 1. Cardiac arrest with return of circulation: ?2/2 arrhythmia s/p hypothermia protocol 2. Anoxic encephalopathy EEG shows anoxic encephalopathy Neurology consultation appreciated, pt not brain Palliative Care consult appreciated Family is deciding about CODE STATUS and whether or not he would have wanted a tracheostomy, continue to follow up with them 3. Acute respiratory failure secondary to cardiac arrest Continue vent support and weaning , pulmonology consultation appreciated 4. History of nonischemic cardiomyopathy with ejection fraction of 25%.: remains on daily lasix 5. History of substance abuse. 6. Anemia, likely secondary to chronic disease. 7. History of schizophrenia. 8. ?Staph bacteremia: Associated with increasing leukocytosis/ we will commence empiric antibiotics/ repeat blood cultures to ensure that this was not a contaminant 9. Infiltrate on CXR: resp cultures still pending. Disposition: * Patient remains unresponsive despite being off sedation for a few days with no purposeful movements other than posturing. Patient does not open eyes to stimulation of speech. * Patient's sister asking for repeat EEG, it is unlikely if this will be of any benefit, but if it will help in decision making we will order now. CC time : >35mins Prophylaxis: Sequential compression devices Subjective 24 Hr Interval Summary Free Text/Dictation Family asked to make decision regarding CODE STATUS. Patient remains unresponsive. Nursing staff reports no acute overnight events. Exam/Review of Systems Vital Signs Vitals Vital Signs Date Time Temp Pulse Resp B/P Pulse Ox O2 Delivery O2 Flow Rate FiO2 10/22/16 08:00 62 10/22/16 08:00 98.2 18 123/87 100 Mechanical Ventilator 10/22/16 05:51 30 Intake and Output 10/21/16 10/21/16 10/22/16 15:00 23:00 07:00 Intake Total 540 ml 600 ml 570 ml Output Total 915 ml 470 ml 395 ml Balance -375 ml 130 ml 175 ml Exam Constitutional: No alert, No oriented Eyes: PERRL, sluggish No icteric ENMT: intubated Respiratory: clear to auscultation, diminished breath sounds Cardiovascular: regular rate and rhythm, No murmurs/extra sounds Gastrointestinal: bowel sounds, distended (mildly), soft Genitourinary - Male: other (mild scrotal edema) Extremities: edema (mild in hands and feet) Neurological: unresponsive, patient has been off sedation for a couple of days , has no gag reflex, and has very sluggish pupils, only movements noted is posturing. Results Result Diagram: 10/22/16 0400 10/22/16 0500 Results 24 hrs Laboratory Tests Test 10/22/16 01:08 10/22/16 04:00 10/22/16 05:00 Bedside Glucose 133 White Blood Count 14.4 H Red Blood Count 4.12 L Hemoglobin 11.2 L Hematocrit 35.8 L Mean Corpuscular Volume 86.9 Mean Corpuscular Hemoglobin 27.2 L Mean Corpuscular Hemoglobin Concent 31.3 L Red Cell Distribution Width 18.6 H Platelet Count 264 Mean Platelet Volume 11.0 H Neutrophils % 81.7 H Lymphocytes % 13.1 L Monocytes % 3.4 Eosinophils % 0.8 Basophils % 0.2 Nucleated Red Blood Cells % 0.0 Neutrophils # 11.7 H Lymphocytes # 1.9 Monocytes # 0.5 Eosinophils # 0.1 Basophils # 0.0 Nucleated Red Blood Cells # 0.0 Sodium Level 142 Potassium Level 3.8 Chloride Level 112 H Carbon Dioxide Level 23 Anion Gap 11 Blood Urea Nitrogen 19 Creatinine 1.00 Glucose Level 160 Calcium Level 9.0 Medications Medications Current Medications Acetaminophen (Tylenol Liquid) 650 mg Q4H PRN PO TEMP > 37C; Start 10/12/16 at 14:00 Meperidine HCl (Demerol) 12.5 mg Q4H PRN IV POST OPERATIVE SHIVERING; Start 10/12/16 at 14:00 Meperidine HCl 25 mg 25 mg Q4H PRN IV POST OPERATIVE SHIVERING; Start 10/12/16 at 14:00 Dopamine HCl/ Dextrose 250 ml @ 6.488 mls/ hr TITRATE IV Last administered on 10/16/16t 09:48; Admin Dose 9.731 MLS/HR; Start 10/12/16 at 17:00 Ondansetron HCl (Zofran Inj) 4 mg Q6H PRN IV NAUSEA AND/OR VOMITING; Start 10/12 at 16:30 Pantoprazole (Protonix Iv) 40 mg DAILY@06 IV Last administered on 10/22/16 05: 12; Admin Dose 40 MG; Start 10/13/16 at 06:00 Furosemide (Lasix) 20 mg DAILY IV Last administered on 10/22/16 09:10; Admin Dose 20 MG; Start 10/12/16 at 21:00 Miscellaneous Information 1 ea NOTE XX ; Start 10/14/16 at 11:00 Glucose (Glutose) 15 gm Q15M PRN PO DECREASED GLUCOSE; Start 10/14/16 at 11:00 Glucose (Glutose) 22.5 gm Q15M PRN PO DECREASED GLUCOSE; Start 10/14/16 at 11: 00 Dextrose (D50w Syringe) 25 ml Q15M PRN IV DECREASED GLUCOSE; Start 10/14/16 at 11:00 Dextrose (D50w Syringe) 50 ml Q15M PRN IV DECREASED GLUCOSE; Start 10/14/16 at 11:00 Glucagon (Glucagen) 1 mg Q15M PRN IM DECREASED GLUCOSE; Start 10/14/16 at 11:00 Glucose (Glutose) 15 gm Q15M PRN BUCCAL DECREASED GLUCOSE; Start 10/14/16 at 11 :00 IV Flush (NS 10 ml) 10 ml PRN PRN IV FLUSH LINE; Start 10/15/16 at 12:00 Carvedilol (Coreg) 3.125 mg BID PO Last administered on 10/22/16 09:11; Admin Dose 3.125 MG; Start 10/19/16 at 21:00 Lisinopril (Zestril) 2.5 mg DAILY PO Last administered on 10/22/16 09:11; Admin Dose 2.5 MG; Start 10/20/16 at 09:00 Heparin Sodium (Porcine) (Heparin (5000 Units/0.5 ml)) 5,000 unit BID SC Last administered on 10/22/16 09:12; Admin Dose 5,000 UNIT; Start 10/20/16 at 12:00 Procedures Procedures PROCEDURE: Chest x-ray CLINICAL INDICATION: Elevated white count TECHNIQUE: Chest single view COMPARISON: 10/19/2016 FINDINGS: Endotracheal tube, nasogastric tube and left arm PICC line remain in good position. Stable mild cardiomegaly. Pulmonary vessels are normal in caliber. There is questionable evolving retrocardiac infiltrate. Continued follow-up is recommended. Small right pleural effusion is seen. Left costophrenic angle sharp. IMPRESSION: 1. Endotracheal tube, nasogastric tube and left arm PICC line remain in good position. 2. Question evolving right retrocardiac infiltrate. Continued follow-up is recommended. 3. Trace right pleural effusion RPTAT: HH .Antonio Qiu MD, MD Date Time Electronically viewed and signed by .Antonio Qiu MD, MD on 10/20/2016 10:36 .ENA HURTADO October 22, 2016 10:34
--- NOTE | 2016-10-22 11:36 | CONS ---
Date/Time of Note Date/Time of Note DATE: 10/22/16 TIME: 11:29 Assessment/Plan Assessment/Plan Chief Complaint/Hosp Course IMPRESSION: 1. Cardiac arrest-? primary arrythmic event 2. Cardiomyopathy with severely depressed left ventricular ejection fraction. 3. Congestive heart failure, systolic, acute on chronic. 4. Respiratory failure, status post intubation. 5. Encephalopathy. 6. Anemia. 7. Cerebral edema. 8. Initial acidosis, improving. 9. History of ventricular tachycardia. 10. History of substance abuse. 11.Encephalopathy-s/p EEG toxic-metabolic REcc: -Tele -serial ecg's -Continue lasix and follow volume status closely -Continue abx's and f/u cx data -Follow MS closely with ongoing neuro eval and family still trying to decide direction of care -Low dose ACEI/BB as tolerated for treatment of cardiomyopathy Problems: Consultation Date/Type/Reason Admit Date/Time October 12, 2016 at 16:30 Initial Consult Date 10/12/2016 Type of Consultation: Cardiology Reason for Consultation cardiac arrest Referring Provider: TIFFANIE WILSON Exam/Review of Systems Vital Signs Vitals Vital Signs Date Time Temp Pulse Resp B/P Pulse Ox O2 Delivery O2 Flow Rate FiO2 10/22/16 10:00 63 16 124/85 99 Mechanical Ventilator 10/22/16 08:00 30 10/22/16 08:00 98.2 Intake and Output 10/21/16 10/21/16 10/22/16 15:00 23:00 07:00 Intake Total 540 ml 600 ml 570 ml Output Total 915 ml 470 ml 395 ml Balance -375 ml 130 ml 175 ml Exam Review of Systems: CONSTITUTIONAL: No fevers, chills. PULMONARY: No sob CARDIOVASCULAR: No chest pain/palpitations GASTROINTESTINAL: No nausea/vomiting. GENITOURINARY: No hematuria/dysuria. MUSCULOSKELETAL: No myagias/arthalgias. PSYCHIATRIC: The patient denies depression. NEUROLOGIC: No weakness Constitutional: alert Psych: no complaints Head: normocephalic ENMT: mucosa pink and moist Neck: jvd (9cm water), supple Respiratory: diminished breath sounds Cardiovascular: regular rate and rhythm Gastrointestinal: non-tender, soft Musculoskeletal: muscle tone (normal) Extremities: edema (none) Neurological: unresponsive Results Result Diagram: 10/22/16 0400 10/22/16 0500 Results 24 hrs Laboratory Tests Test 10/22/16 01:08 10/22/16 04:00 10/22/16 05:00 Bedside Glucose 133 White Blood Count 14.4 H Red Blood Count 4.12 L Hemoglobin 11.2 L Hematocrit 35.8 L Mean Corpuscular Volume 86.9 Mean Corpuscular Hemoglobin 27.2 L Mean Corpuscular Hemoglobin Concent 31.3 L Red Cell Distribution Width 18.6 H Platelet Count 264 Mean Platelet Volume 11.0 H Neutrophils % 81.7 H Lymphocytes % 13.1 L Monocytes % 3.4 Eosinophils % 0.8 Basophils % 0.2 Nucleated Red Blood Cells % 0.0 Neutrophils # 11.7 H Lymphocytes # 1.9 Monocytes # 0.5 Eosinophils # 0.1 Basophils # 0.0 Nucleated Red Blood Cells # 0.0 Sodium Level 142 Potassium Level 3.8 Chloride Level 112 H Carbon Dioxide Level 23 Anion Gap 11 Blood Urea Nitrogen 19 Creatinine 1.00 Glucose Level 160 Calcium Level 9.0 Medications Medications Current Medications Acetaminophen (Tylenol Liquid) 650 mg Q4H PRN PO TEMP > 37C; Start 10/12/16 at 14:00 Meperidine HCl (Demerol) 12.5 mg Q4H PRN IV POST OPERATIVE SHIVERING; Start 10/12/16 at 14:00 Meperidine HCl 25 mg 25 mg Q4H PRN IV POST OPERATIVE SHIVERING; Start 10/12/16 at 14:00 Dopamine HCl/ Dextrose 250 ml @ 6.488 mls/ hr TITRATE IV Last administered on 10/16/16 09:48; Admin Dose 9.731 MLS/HR; Start 10/12/16 at 17:00 Ondansetron HCl (Zofran Inj) 4 mg Q6H PRN IV NAUSEA AND/OR VOMITING; Start 10/12 at 16:30 Pantoprazole (Protonix Iv) 40 mg DAILY@06 IV Last administered on 10/22/16 05: 12; Admin Dose 40 MG; Start 10/13/16 at 06:00 Furosemide (Lasix) 20 mg DAILY IV Last administered on 10/22/16 09:10; Admin Dose 20 MG; Start 10/12/16 at 21:00 Miscellaneous Information 1 ea NOTE XX ; Start 10/14/16 at 11:00 Glucose (Glutose) 15 gm Q15M PRN PO DECREASED GLUCOSE; Start 10/14/16 at 11:00 Glucose (Glutose) 22.5 gm Q15M PRN PO DECREASED GLUCOSE; Start 10/14/16 at 11: 00 Dextrose (D50w Syringe) 25 ml Q15M PRN IV DECREASED GLUCOSE; Start 10/14/16 at 11:00 Dextrose (D50w Syringe) 50 ml Q15M PRN IV DECREASED GLUCOSE; Start 10/14/16 at 11:00 Glucagon (Glucagen) 1 mg Q15M PRN IM DECREASED GLUCOSE; Start 10/14/16 at 11:00 Glucose (Glutose) 15 gm Q15M PRN BUCCAL DECREASED GLUCOSE; Start 10/14/16 at 11 :00 IV Flush (NS 10 ml) 10 ml PRN PRN IV FLUSH LINE; Start 10/15/16 at 12:00 Carvedilol (Coreg) 3.125 mg BID PO Last administered on 10/22/16 09:11; Admin Dose 3.125 MG; Start 10/19/16 at 21:00 Lisinopril (Zestril) 2.5 mg DAILY PO Last administered on 10/22/16 09:11; Admin Dose 2.5 MG; Start 10/20/16 at 09:00 Heparin Sodium (Porcine) 5000 unit 5,000 unit Q8 SC ; Start 10/22/16 at 15:00 Levofloxacin/ Dextrose (Levaquin 750 Mg/ D5W 150 ml (Pmx)) 150 ml @ 100 mls/hr Q24H IVPB ; Start 10/22/16 at 12:00 Lactobacillus Acidophilus/ Rhamnosus (Culturelle) 1 cap BID PO ; Start 10/22/16 at 12:00 DEXTER ZAMORANO October 22, 2016 11:36
--- NOTE | 2016-10-22 11:56 | RADRPT ---
PROCEDURE: US Lower extremity Venous. CLINICAL INDICATION: Bilateral lower extremity edema TECHNIQUE: Multiple sonographic images of the bilateral lower extremity deep venous system was obt ained utilizing grayscale, color-flow, compressive sonography and doppler imaging with augmentation. The images were reviewed on a PACS workstation. COMPARISON: None. FINDINGS: There is normal compressibility and flow within the bilateral common femoral, femoral , posterior ti bial and popliteal veins. RPTAT: AA IMPRESSION: No sonographic evidence for deep venous thrombosis. .Domingo Omer MD, MD Date Time Electronically viewed and signed by .Domingo Omer MD, on 10/22/2016 11:55 .S/
[2016-10-22] MEDS: LEVOFLOXACIN 750MG/D5W (PMX) 150 ML IVPB SCH (12:51)
[2016-10-22] MEDS ORDERED: VANCOMYCIN 2 GM in SOD CHLORIDE 0.9% 500 ML IVPB SCH (13:00)
[2016-10-22] MEDS: LACTOBACILLUS RHAMNOSUS CAP PO SCH ×2 (14:31→21:34)
--- NOTE | 2016-10-22 21:01 | SP ---
DATE OF PROCEDURE: This is a 51-year-old gentleman status post cardiopulmonary arrest, unresponsive. DESCRIPTION OF PROCEDURE: Routine EEG was recorded digitally. [id number] and [id number] archana ages were recorded and reviewed. All impedances were measured and recorded. Cap electrodes were pl aced in accordance with International 10-20 system of electrode placement. FINDINGS: Low amplitude background activity was seen. It intermixes with movements of muscle artif acts. Background rhythm seems to consist of beta range activity which may reflect use of medication s such as benzodiazepines. At times the background rhythm slow wave 1 to 3 cycles per second. No epileptiform transients were seen. No signs of ongoing electrographic seizures. IMPRESSION: It is the second study, still grossly abnormal, secondary to very low amplitudes, backg round activity with slowing of background. This all reflects severity of anoxic encephalopathy. Th e study was degraded by artifact. Dictated By: MARYANN BACA/EDILIA Conf#: [id number] DID#: [id number]
[2016-10-23] VITALS (35 sets, daily range): BP systolic 84–127; BP diastolic 64–89; PULSE 54–67; RESP 7–21
[2016-10-23] MEDS: VANCOMYCIN 1.25 GM in SOD CHLORIDE 0.9% 250 ML IVPB SCH ×2 (00:45→12:00)
[2016-10-23] MEDS: PANTOPRAZOLE 40 MG INJ IV SCH (05:11)
[2016-10-23] MEDS: HEPARIN 5,000 UNIT/0.5 ML VIAL SC SCH ×3 (05:13→22:44)
[2016-10-23 06:04] LABS: ADD SCAN DIFF NO
[2016-10-23 06:09] LABS: BASOPHILS % 0.1 % (0.0-2.0); EOSINOPHILS # 0.1 10^3/ul (0.0-0.5); EOSINOPHILS % 0.7 % (0.0-7.0); HEMATOCRIT 36.4 % (42.0-52.0); HEMOGLOBIN 11.5 g/dl (14.0-18.0); LYMPHOCYTES # 1.7 10^3/ul (0.8-2.9); LYMPHOCYTES % 11.3 % (15.0-51.0); MEAN CORPUSCULAR HEMOGLOBIN 27.3 pg (29.0-33.0); MEAN CORPUSCULAR HGB CONC 31.6 g/dl (32.0-37.0); MEAN CORPUSCULAR VOLUME 86.3 fl (82.0-101.0); MEAN PLATELET VOLUME 11.2 fl (7.4-10.4); MONOCYTE # 0.7 10^3/ul (0.3-0.9); MONOCYTES % 4.4 % (0.0-11.0); NEUTROPHIL # 12.6 10^3/ul (1.6-7.5); NEUTROPHILS % 82.8 % (39.0-77.0); PLATELET COUNT 269 10^3/UL (140-415); RED BLOOD COUNT 4.22 10^6/ul (4.70-6.10); RED CELL DISTRIBUTION WIDTH 18.6 % (11.5-14.5); WHITE BLOOD COUNT 15.2 10^3/ul (4.8-10.8)
[2016-10-23 06:33] LABS: CREATININE 0.96 mg/dl (0.61-1.24); MAGNESIUM 1.7 mg/dl (1.7-2.5); POTASSIUM 3.8 mmol/L (3.5-5.1)
[2016-10-23] MEDS: FUROSEMIDE 20 MG INJ IV SCH (08:52)
[2016-10-23] MEDS: LISINOPRIL 5 MG TAB PO SCH (08:53)
[2016-10-23] MEDS: LACTOBACILLUS RHAMNOSUS CAP PO SCH ×2 (08:53→21:00)
--- NOTE | 2016-10-23 10:11 | CONS ---
Date/Time of Note Date/Time of Note DATE: 10/23/16 TIME: 10:09 Consult Date/Type/Reason Admit Date/Time October 12, 2016 at 16:30 Type of Consultation: Pulmonary ICU Ordering Provider: TIFFANIE WILSON Subjective Patient remains stable on mechanical ventilation He remains unresponsive has received no sedation. Objective Vital Signs Date Time Temp Pulse Resp B/P Pulse Ox O2 Delivery O2 Flow Rate FiO2 10/23/16 08:00 61 10/23/16 06:00 18 112/73 99 10/23/16 05:33 30 10/23/16 04:00 98.4 10/23/16 00:00 Mechanical Ventilator Intake and Output 10/22/16 10/22/16 10/23/16 15:00 23:00 07:00 Intake Total 830 ml 1010 ml 759 ml Output Total 1460 ml 460 ml 350 ml Balance -630 ml 550 ml 409 ml Exam PHYSICAL EXAMINATION: GENERAL: Elderly-appearing gentleman, intubated on mechanical ventilation. VITAL SIGNS: As above HEENT: Pupils are nonreactive CARDIAC: S1, S2, no added sounds or murmurs. CHEST: Diminished air entry bilaterally. ABDOMEN: Soft, nontender. No guarding or rebound. EXTREMITIES: No cyanosis, clubbing, edema +1 NEUROLOGIC: Unable to assess. Results/Medications Result Diagram: 10/23/16 0530 10/23/16 0530 Results 24 hrs Laboratory Tests Test 10/23/16 05:30 White Blood Count 15.2 H Red Blood Count 4.22 L Hemoglobin 11.5 L Hematocrit 36.4 L Mean Corpuscular Volume 86.3 Mean Corpuscular Hemoglobin 27.3 L Mean Corpuscular Hemoglobin Concent 31.6 L Red Cell Distribution Width 18.6 H Platelet Count 269 Mean Platelet Volume 11.2 H Neutrophils % 82.8 H Lymphocytes % 11.3 L Monocytes % 4.4 Eosinophils % 0.7 Basophils % 0.1 Nucleated Red Blood Cells % 0.0 Neutrophils # 12.6 H Lymphocytes # 1.7 Monocytes # 0.7 Eosinophils # 0.1 Basophils # 0.0 Nucleated Red Blood Cells # 0.0 Sodium Level 142 Potassium Level 3.8 Chloride Level 111 H Carbon Dioxide Level 24 Anion Gap 11 Blood Urea Nitrogen 18 Creatinine 0.96 Glucose Level 144 Calcium Level 9.0 Magnesium Level 1.7 Medications Current Medications Acetaminophen (Tylenol Liquid) 650 mg Q4H PRN PO TEMP > 37C; Start 10/12/16 at 14:00 Meperidine HCl (Demerol) 12.5 mg Q4H PRN IV POST OPERATIVE SHIVERING; Start 10/12/16 at 14:00 Meperidine HCl 25 mg 25 mg Q4H PRN IV POST OPERATIVE SHIVERING; Start 10/12/16 at 14:00 Dopamine HCl/ Dextrose 250 ml @ 6.488 mls/ hr TITRATE IV Last administered on 10/16/16 09:48; Admin Dose 9.731 MLS/HR; Start 10/12/16 at 17:00 Ondansetron HCl (Zofran Inj) 4 mg Q6H PRN IV NAUSEA AND/OR VOMITING; Start 10/12 at 16:30 Pantoprazole (Protonix Iv) 40 mg DAILY@06 IV Last administered on 10/23/16 05: 11; Admin Dose 40 MG; Start 10/13/16 at 06:00 Furosemide (Lasix) 20 mg DAILY IV Last administered on 10/23/16 08:52; Admin Dose 20 MG; Start 10/12/16 at 21:00 Miscellaneous Information 1 ea NOTE XX ; Start 10/14/16 at 11:00 Glucose (Glutose) 15 gm Q15M PRN PO DECREASED GLUCOSE; Start 10/14/16 at 11:00 Glucose (Glutose) 22.5 gm Q15M PRN PO DECREASED GLUCOSE; Start 10/14/16 at 11: 00 Dextrose (D50w Syringe) 25 ml Q15M PRN IV DECREASED GLUCOSE; Start 10/14/16 at 11:00 Dextrose (D50w Syringe) 50 ml Q15M PRN IV DECREASED GLUCOSE; Start 10/14/16 at 11:00 Glucagon (Glucagen) 1 mg Q15M PRN IM DECREASED GLUCOSE; Start 10/14/16 at 11:00 Glucose (Glutose) 15 gm Q15M PRN BUCCAL DECREASED GLUCOSE; Start 10/14/16 at 11 :00 IV Flush (NS 10 ml) 10 ml PRN PRN IV FLUSH LINE; Start 10/15/16 at 12:00 Carvedilol (Coreg) 3.125 mg BID PO Last administered on 10/23/16 08:52; Admin Dose 3.125 MG; Start 10/19/16 at 21:00 Lisinopril (Zestril) 2.5 mg DAILY PO Last administered on 10/23/16 08:53; Admin Dose 2.5 MG; Start 10/20/16 at 09:00 Heparin Sodium (Porcine) 5000 unit 5,000 unit Q8 SC Last administered on 05:13; Admin Dose 5,000 UNIT; Start 10/22/16 at 15:00 Levofloxacin/ Dextrose (Levaquin 750 Mg/ D5W 150 ml (Pmx)) 150 ml @ 100 mls/hr Q24H IVPB Last administered on 10/22/16 12:51; Admin Dose 100 MLS/HR; Start at 12:00 Lactobacillus Acidophilus/ Rhamnosus 1 cap 1 cap BID PO Last administered on 08:53; Admin Dose 1 CAP; Start 10/22/16 at 12:00 Vancomycin HCl/ Sodium Chloride (Vancocin/NS) 250 ml @ 83.333 mls/ hr Q12H IVPB Last administered on 10/23/16 00:45; Admin Dose 83.333 MLS/HR; Start at 01:00 Assessment/Plan Chief Complaint/Hosp Course IMPRESSION AND PLAN: 1. Cardiopulmonary arrest. 2. Possible aspiration pneumonia. 3. Severe anoxic brain injury 4. History of congestive heart failure and atrial fibrillation. Decreased ejection fraction 5. History of substance abuse PLAN: 1. Continue mechanical ventilation. 2. Broad-spectrum antibiotics, for aspiration pneumonia 3. DVT and GI prophylaxis 4. Continue tube feeding Disposition Continue ICU care Prognosis very poor I met with family yesterday. Patient's sister and I discussed goals of care. She feels that tracheostomy and PEG tube would not be consistent with his wishes. They will contact next of kin to visit the patient prior to terminal extubation. Problems: TRUNG LORA MD, [facility] October 23, 2016 10:11
--- NOTE | 2016-10-23 10:31 | PN ---
DATE: 10/19/2016 This is a postdated family conference on Mr. Humberto Hopkins. Family conference was done on 2016 with the patient's sister. This is the second meeting I have had with his sister who is very t earful and so much so that states she is unable to go into the patient's room. She is the sole deci demetrius maker. States that her mother in the bed next door in the intensive care unit and no so l blanka ago. Extensive conversation was done with ongoing level of care. The patient's preferences is as she perceived them whether or not he would want to be maintained on life support for the rest of his life. She made it very clear that he had actually in fact expressed that he did not and his de sire was not to continue on in moribund condition. Luckily a friend was available at the meeting an d she is a hospice nurse. She was in fact very helpful and participated in the meeting. Once again issues that were discussed participants voiced background information on patient's acceptable quali ty of life, patient's family talked, sister has a clear understanding of his underlying medical prob lems. She accepts the fact that he will not have the ability of coming back to his normal cognitive condition status. The patient's sister is strong and she accepts this and she accepts that she daniel l need to make decisions on level of care including extubation and PEG. At this time, she does not seem to move into that direction more into comfort measures. Obviously, the patient's daughter has had past experience with her mother dying in the intensive care unit. Goals of care were discussed and once again family is leaning towards comfort measures. His prognosis is zero once he is extubat ed, will probably fairly soon thereafter. There are no pain and symptom management issues, psyc hosocial issues were addressed, ethical issues. Unfortunately, the patient is still a FULL CODE. I believe that family will change that today. Dictated By: DESIREE MIRANDA MD, LP/EDILIA Conf#: [id number] DID#: [id number]
[2016-10-23] MEDS: LEVOFLOXACIN 750MG/D5W (PMX) 150 ML IVPB SCH (11:57)
--- NOTE | 2016-10-23 12:35 | PN ---
Date/Time of Note Date/Time of Note DATE: 10/23/16 TIME: 12:32 Assessment/Plan VTE Prophylaxis VTE Prophylaxis Intervention: LMWH Lines/Catheters IV [facility] Type ([facility] PICC Line Central line still needed: Yes (Terminal) Urinary Cath still in place: Yes Reason Cath still needed: other (indicate) Assessment/Plan Assessment/Plan 1. Cardiac arrest with return of circulation: ?2/2 arrhythmia s/p hypothermia protocol 2. Anoxic encephalopathy EEG shows anoxic encephalopathy Neurology consultation appreciated, pt not brain Palliative Care consult appreciated Family is deciding about CODE STATUS and whether or not he would have wanted a tracheostomy, continue to follow up with them 3. Acute respiratory failure secondary to cardiac arrest Continue vent support and weaning , pulmonology consultation appreciated 4. History of nonischemic cardiomyopathy with ejection fraction of 25%.: remains on daily lasix 5. History of substance abuse. 6. Anemia, likely secondary to chronic disease. 7. History of schizophrenia. 8. ?Staph bacteremia: Associated with increasing leukocytosis/ we will commence empiric antibiotics/ repeat blood cultures to ensure that this was not a contaminant 9. Infiltrate on CXR: resp cultures negative Disposition: * Patient remains unresponsive despite being off sedation for a few days with no purposeful movements other than posturing. Patient does not open eyes to stimulation of speech. Prognosis poor * Patient's sister asking for repeat EEG, it is unlikely if this will be of any benefit, it has been done, report is pending CC time : >35mins Prophylaxis: Lovenox Subjective 24 Hr Interval Summary Free Text/Dictation Patient seen and examined. Nursing reports no acute overnight events. Intubated and off sedation Exam/Review of Systems Vital Signs Vitals Vital Signs Date Time Temp Pulse Resp B/P Pulse Ox O2 Delivery O2 Flow Rate FiO2 10/23/16 10:00 62 16 100/70 98 Mechanical Ventilator 10/23/16 08:00 99.1 10/23/16 08:00 30 Intake and Output 10/22/16 10/22/16 10/23/16 15:00 23:00 07:00 Intake Total 830 ml 1010 ml 759 ml Output Total 1460 ml 460 ml 350 ml Balance -630 ml 550 ml 409 ml Exam Constitutional: No alert, No oriented Eyes: PERRL, sluggish No icteric ENMT: intubated Respiratory: clear to auscultation, diminished breath sounds Cardiovascular: regular rate and rhythm, No murmurs/extra sounds Gastrointestinal: bowel sounds, distended (mildly), soft Genitourinary - Male: other (mild scrotal edema) Extremities: edema (mild in hands and feet) Neurological: unresponsive, patient has been off sedation for a couple of days , has no gag reflex, and has very sluggish pupils, only movements noted is posturing. Results Result Diagram: 10/23/16 0530 10/23/16 0530 Results 24 hrs Laboratory Tests Test 10/23/16 05:30 White Blood Count 15.2 H Red Blood Count 4.22 L Hemoglobin 11.5 L Hematocrit 36.4 L Mean Corpuscular Volume 86.3 Mean Corpuscular Hemoglobin 27.3 L Mean Corpuscular Hemoglobin Concent 31.6 L Red Cell Distribution Width 18.6 H Platelet Count 269 Mean Platelet Volume 11.2 H Neutrophils % 82.8 H Lymphocytes % 11.3 L Monocytes % 4.4 Eosinophils % 0.7 Basophils % 0.1 Nucleated Red Blood Cells % 0.0 Neutrophils # 12.6 H Lymphocytes # 1.7 Monocytes # 0.7 Eosinophils # 0.1 Basophils # 0.0 Nucleated Red Blood Cells # 0.0 Sodium Level 142 Potassium Level 3.8 Chloride Level 111 H Carbon Dioxide Level 24 Anion Gap 11 Blood Urea Nitrogen 18 Creatinine 0.96 Glucose Level 144 Calcium Level 9.0 Magnesium Level 1.7 Medications Medications Current Medications Acetaminophen (Tylenol Liquid) 650 mg Q4H PRN PO TEMP > 37C; Start 10/12/16 at 14:00 Meperidine HCl (Demerol) 12.5 mg Q4H PRN IV POST OPERATIVE SHIVERING; Start 10/12/16 at 14:00 Meperidine HCl 25 mg 25 mg Q4H PRN IV POST OPERATIVE SHIVERING; Start 10/12/16 at 14:00 Dopamine HCl/ Dextrose 250 ml @ 6.488 mls/ hr TITRATE IV Last administered on 10/16/16t 09:48; Admin Dose 9.731 MLS/HR; Start 10/12/16 at 17:00 Ondansetron HCl (Zofran Inj) 4 mg Q6H PRN IV NAUSEA AND/OR VOMITING; Start 10/12 at 16:30 Pantoprazole (Protonix Iv) 40 mg DAILY@06 IV Last administered on 10/23/16 05: 11; Admin Dose 40 MG; Start 10/13/16 at 06:00 Furosemide (Lasix) 20 mg DAILY IV Last administered on 10/23/16 08:52; Admin Dose 20 MG; Start 10/12/16 at 21:00 Miscellaneous Information 1 ea NOTE XX ; Start 10/14/16 at 11:00 Glucose (Glutose) 15 gm Q15M PRN PO DECREASED GLUCOSE; Start 10/14/16 at 11:00 Glucose (Glutose) 22.5 gm Q15M PRN PO DECREASED GLUCOSE; Start 10/14/16 at 11: 00 Dextrose (D50w Syringe) 25 ml Q15M PRN IV DECREASED GLUCOSE; Start 10/14/16 at 11:00 Dextrose (D50w Syringe) 50 ml Q15M PRN IV DECREASED GLUCOSE; Start 10/14/16 at 11:00 Glucagon (Glucagen) 1 mg Q15M PRN IM DECREASED GLUCOSE; Start 10/14/16 at 11:00 Glucose (Glutose) 15 gm Q15M PRN BUCCAL DECREASED GLUCOSE; Start 10/14/16 at 11 :00 IV Flush (NS 10 ml) 10 ml PRN PRN IV FLUSH LINE; Start 10/15/16 at 12:00 Carvedilol (Coreg) 3.125 mg BID PO Last administered on 10/23/16 08:52; Admin Dose 3.125 MG; Start 10/19/16 at 21:00 Lisinopril (Zestril) 2.5 mg DAILY PO Last administered on 10/23/16 08:53; Admin Dose 2.5 MG; Start 10/20/16 at 09:00 Heparin Sodium (Porcine) 5000 unit 5,000 unit Q8 SC Last administered on 05:13; Admin Dose 5,000 UNIT; Start 10/22/16 at 15:00 Levofloxacin/ Dextrose (Levaquin 750 Mg/ D5W 150 ml (Pmx)) 150 ml @ 100 mls/hr Q24H IVPB Last administered on 10/23/16 11:57; Admin Dose 100 MLS/HR; Start at 12:00 Lactobacillus Acidophilus/ Rhamnosus 1 cap 1 cap BID PO Last administered on 08:53; Admin Dose 1 CAP; Start 10/22/16 at 12:00 Vancomycin HCl/ Sodium Chloride (Vancocin/NS) 250 ml @ 83.333 mls/ hr Q12H IVPB Last administered on 10/23/16 12:00; Admin Dose 83.333 MLS/HR; Start at 01:00 ENA WU October 23, 2016 12:35
--- NOTE | 2016-10-23 12:47 | CONS ---
Date/Time of Note Date/Time of Note DATE: 10/23/16 TIME: 12:44 Assessment/Plan Assessment/Plan Chief Complaint/Hosp Course IMPRESSION: 1. Cardiac arrest-? primary arrythmic event 2. Cardiomyopathy with severely depressed left ventricular ejection fraction. 3. Congestive heart failure, systolic, acute on chronic. 4. Respiratory failure, status post intubation. 5. Encephalopathy. 6. Anemia. 7. Cerebral edema. 8. Initial acidosis, improving. 9. History of ventricular tachycardia. 10. History of substance abuse. 11.Encephalopathy-s/p EEG toxic-metabolic REcc: -Tele -serial ecg's -Continue lasix and follow volume status closely -Continue abx's and f/u cx data -Follow MS closely with ongoing neuro -Low dose ACEI/BB as tolerated for treatment of cardiomyopathy -Possible SURFBOARD MAKER/terminal extubation today Problems: Consultation Date/Type/Reason Admit Date/Time October 12, 2016 at 16:30 Initial Consult Date 10/12/2016 Type of Consultation: Cardiology Reason for Consultation cardiac arrest Referring Provider: TIFFANIE WILSON Exam/Review of Systems Vital Signs Vitals Vital Signs Date Time Temp Pulse Resp B/P Pulse Ox O2 Delivery O2 Flow Rate FiO2 10/23/16 10:00 62 16 100/70 98 Mechanical Ventilator 10/23/16 08:00 99.1 10/23/16 08:00 30 Intake and Output 10/22/16 10/22/16 10/23/16 15:00 23:00 07:00 Intake Total 830 ml 1010 ml 759 ml Output Total 1460 ml 460 ml 350 ml Balance -630 ml 550 ml 409 ml Exam Review of Systems: CONSTITUTIONAL: No fevers, chills. PULMONARY: intubated CARDIOVASCULAR: No obvious chest pain/palpitations GASTROINTESTINAL: No nausea/vomiting. GENITOURINARY: No hematuria/dysuria. MUSCULOSKELETAL: No obvious myagias/arthalgias. PSYCHIATRIC: The patient denies depression. NEUROLOGIC: encephalopathic Constitutional: alert Psych: no complaints Head: normocephalic ENMT: mucosa pink and moist Neck: jvd, supple Respiratory: diminished breath sounds Cardiovascular: regular rate and rhythm Gastrointestinal: non-tender, soft Musculoskeletal: muscle tone (normal) Extremities: edema (none) Neurological: other (Encephalopathic) Results Result Diagram: 5/19/17 0530 5/19/17 0530 Results 24 hrs Laboratory Tests Test 10/23/16 05:30 White Blood Count 15.2 H Red Blood Count 4.22 L Hemoglobin 11.5 L Hematocrit 36.4 L Mean Corpuscular Volume 86.3 Mean Corpuscular Hemoglobin 27.3 L Mean Corpuscular Hemoglobin Concent 31.6 L Red Cell Distribution Width 18.6 H Platelet Count 269 Mean Platelet Volume 11.2 H Neutrophils % 82.8 H Lymphocytes % 11.3 L Monocytes % 4.4 Eosinophils % 0.7 Basophils % 0.1 Nucleated Red Blood Cells % 0.0 Neutrophils # 12.6 H Lymphocytes # 1.7 Monocytes # 0.7 Eosinophils # 0.1 Basophils # 0.0 Nucleated Red Blood Cells # 0.0 Sodium Level 142 Potassium Level 3.8 Chloride Level 111 H Carbon Dioxide Level 24 Anion Gap 11 Blood Urea Nitrogen 18 Creatinine 0.96 Glucose Level 144 Calcium Level 9.0 Magnesium Level 1.7 Medications Medications Current Medications Acetaminophen (Tylenol Liquid) 650 mg Q4H PRN PO TEMP > 37C; Start 10/12/16 at 14:00 Meperidine HCl (Demerol) 12.5 mg Q4H PRN IV POST OPERATIVE SHIVERING; Start 10/12/16 at 14:00 Meperidine HCl 25 mg 25 mg Q4H PRN IV POST OPERATIVE SHIVERING; Start 10/12/16 at 14:00 Dopamine HCl/ Dextrose 250 ml @ 6.488 mls/ hr TITRATE IV Last administered on 10/16/16 09:48; Admin Dose 9.731 MLS/HR; Start 10/12/16 at 17:00 Ondansetron HCl (Zofran Inj) 4 mg Q6H PRN IV NAUSEA AND/OR VOMITING; Start 10/12 at 16:30 Pantoprazole (Protonix Iv) 40 mg DAILY@06 IV Last administered on 10/23/16 05: 11; Admin Dose 40 MG; Start 10/13/16 at 06:00 Furosemide (Lasix) 20 mg DAILY IV Last administered on 10/23/16 08:52; Admin Dose 20 MG; Start 10/12/16 at 21:00 Miscellaneous Information 1 ea NOTE XX ; Start 10/14/16 at 11:00 Glucose (Glutose) 15 gm Q15M PRN PO DECREASED GLUCOSE; Start 10/14/16 at 11:00 Glucose (Glutose) 22.5 gm Q15M PRN PO DECREASED GLUCOSE; Start 10/14/16 at 11: 00 Dextrose (D50w Syringe) 25 ml Q15M PRN IV DECREASED GLUCOSE; Start 10/14/16 at 11:00 Dextrose (D50w Syringe) 50 ml Q15M PRN IV DECREASED GLUCOSE; Start 10/14/16 at 11:00 Glucagon (Glucagen) 1 mg Q15M PRN IM DECREASED GLUCOSE; Start 10/14/16 at 11:00 Glucose (Glutose) 15 gm Q15M PRN BUCCAL DECREASED GLUCOSE; Start 10/14/16 at 11 :00 IV Flush (NS 10 ml) 10 ml PRN PRN IV FLUSH LINE; Start 10/15/16 at 12:00 Carvedilol (Coreg) 3.125 mg BID PO Last administered on 10/23/16 08:52; Admin Dose 3.125 MG; Start 10/19/16 at 21:00 Lisinopril (Zestril) 2.5 mg DAILY PO Last administered on 10/23/16 08:53; Admin Dose 2.5 MG; Start 10/20/16 at 09:00 Heparin Sodium (Porcine) 5000 unit 5,000 unit Q8 SC Last administered on 05:13; Admin Dose 5,000 UNIT; Start 10/22/16 at 15:00 Levofloxacin/ Dextrose (Levaquin 750 Mg/ D5W 150 ml (Pmx)) 150 ml @ 100 mls/hr Q24H IVPB Last administered on 10/23/16 11:57; Admin Dose 100 MLS/HR; Start at 12:00 Lactobacillus Acidophilus/ Rhamnosus 1 cap 1 cap BID PO Last administered on 08:53; Admin Dose 1 CAP; Start 10/22/16 at 12:00 Vancomycin HCl/ Sodium Chloride (Vancocin/NS) 250 ml @ 83.333 mls/ hr Q12H IVPB Last administered on 10/23/16 12:00; Admin Dose 83.333 MLS/HR; Start at 01:00 Enoxaparin Sodium (Lovenox) 40 mg DAILY SC ; Start 10/23/16 at 13:00 Miscellaneous Information (*Rx Drug Level Order Reminder*) 1 ONCE ONCE XX ; Start 10/24/16 at 00:00; Stop 10/24/16 at 00:01 DEXTER ZAMORANO October 23, 2016 12:47
[2016-10-23] MEDS: ENOXAPARIN 40 MG/0.4 ML SYG SC SCH (13:17)
[2016-10-24] VITALS (37 sets, daily range): BP systolic 95–132; BP diastolic 67–93; PULSE 55–66; RESP 8–19
[2016-10-24] MEDS: VANCOMYCIN 1 GM in NS 250 ML IVPB SCH ×2 (02:26→14:18)
[2016-10-24 05:45] LABS: ADD SCAN DIFF NO
[2016-10-24 05:53] LABS: BASOPHIL # 0.1 10^3/ul (0.0-0.1); BASOPHILS % 0.4 % (0.0-2.0); EOSINOPHILS # 0.1 10^3/ul (0.0-0.5); EOSINOPHILS % 0.9 % (0.0-7.0); HEMATOCRIT 38.2 % (42.0-52.0); HEMOGLOBIN 11.9 g/dl (14.0-18.0); LYMPHOCYTES # 1.5 10^3/ul (0.8-2.9); MEAN CORPUSCULAR HGB CONC 31.2 g/dl (32.0-37.0); MEAN CORPUSCULAR VOLUME 86.8 fl (82.0-101.0); MEAN PLATELET VOLUME 11.1 fl (7.4-10.4); MONOCYTE # 0.7 10^3/ul (0.3-0.9); MONOCYTES % 4.9 % (0.0-11.0); NEUTROPHIL # 11.6 10^3/ul (1.6-7.5); NEUTROPHILS % 82.3 % (39.0-77.0); PLATELET COUNT 290 10^3/UL (140-415); RED CELL DISTRIBUTION WIDTH 18.3 % (11.5-14.5)
[2016-10-24] MEDS: PANTOPRAZOLE 40 MG INJ IV SCH (05:56)
[2016-10-24] MEDS: HEPARIN 5,000 UNIT/0.5 ML VIAL SC SCH ×3 (06:00→21:34)
[2016-10-24 06:12] LABS: POTASSIUM 3.6 mmol/L (3.5-5.1)
[2016-10-24 06:15] LABS: CREATININE 0.93 mg/dl (0.61-1.24)
[2016-10-24 06:16] LABS: CALCIUM 9.1 mg/dl (8.4-10.2)
[2016-10-24] MEDS: FUROSEMIDE 20 MG INJ IV SCH (09:02)
[2016-10-24] MEDS: LISINOPRIL 5 MG TAB PO SCH (09:03)
[2016-10-24] MEDS: ENOXAPARIN 40 MG/0.4 ML SYG SC SCH (09:03)
[2016-10-24] MEDS: LACTOBACILLUS RHAMNOSUS CAP PO SCH ×2 (09:03→20:36)
--- NOTE | 2016-10-24 10:09 | PN ---
Date/Time of Note Date/Time of Note DATE: 10/24/16 TIME: 10:02 Assessment/Plan VTE Prophylaxis VTE Prophylaxis Intervention: LMWH Lines/Catheters IV Catheter Type (from [facility]): PICC Line Central line still needed: Yes Urinary Cath still in place: Yes Reason Cath still needed: terminal illness/intractable pain, other (indicate) Assessment/Plan Assessment/Plan 1. Cardiac arrest with return of circulation: ?2/2 arrhythmia s/p hypothermia protocol 2. Anoxic encephalopathy EEG shows anoxic encephalopathy Neurology consultation appreciated, pt not brain Palliative Care consult appreciated Family is deciding about CODE STATUS and whether or not he would have wanted a tracheostomy, continue to follow up with them 3. Acute respiratory failure secondary to cardiac arrest Continue vent support and weaning , pulmonology consultation appreciated 4. History of nonischemic cardiomyopathy with ejection fraction of 25%.: remains on daily lasix 5. History of substance abuse. 6. Anemia, likely secondary to chronic disease. 7. History of schizophrenia. 8. ?Staph bacteremia: Associated with increasing leukocytosis/ we will commence empiric antibiotics/ repeat blood cultures to ensure that this was not a contaminant 9. Infiltrate on CXR: resp cultures negative Disposition: * Patient remains unresponsive despite being off sedation for a few days with no purposeful movements other than posturing. Patient does not open eyes to stimulation of speech. Prognosis poor * Possible terminal extubation today depending on the family /meanwhile continue all current care CC time : >35mins Prophylaxis: Lovenox Subjective 24 Hr Interval Summary Free Text/Dictation Plans are in place for possible terminal extubation today when the family is ready. No real change in clinical status / no acute overnight events. Exam/Review of Systems Vital Signs Vitals Vital Signs Date Time Temp Pulse Resp B/P Pulse Ox O2 Delivery O2 Flow Rate FiO2 10/24/16 09:00 63 16 126/90 98 Mechanical Ventilator 10/24/16 08:00 30 10/24/16 08:00 97.6 Intake and Output 10/23/16 10/23/16 10/24/16 15:00 23:00 07:00 Intake Total 390 ml 360 ml 490 ml Output Total 1445 ml 420 ml 310 ml Balance -1055 ml -60 ml 180 ml Exam Constitutional: No alert, No oriented Eyes: PERRL, sluggish No icteric ENMT: intubated Respiratory: clear to auscultation, diminished breath sounds Cardiovascular: regular rate and rhythm, No murmurs/extra sounds Gastrointestinal: bowel sounds, distended (mildly), soft Genitourinary - Male: other (mild scrotal edema) Extremities: edema (mild in hands and feet) Neurological: unresponsive, patient has been off sedation for a couple of days , has no gag reflex, and has very sluggish pupils, only movements noted is posturing. Results Result Diagram: 10/24/16 0450 10/24/16 0430 Results 24 hrs Laboratory Tests Test 10/24/16 00:20 10/24/16 04:30 10/24/16 04:50 Vancomycin Level Trough 17.2 Sodium Level 141 Potassium Level 3.6 Chloride Level 107 Carbon Dioxide Level 25 Anion Gap 13 Blood Urea Nitrogen 20 Creatinine 0.93 Glucose Level 168 Calcium Level 9.1 White Blood Count 14.0 H Red Blood Count 4.40 L Hemoglobin 11.9 L Hematocrit 38.2 L Mean Corpuscular Volume 86.8 Mean Corpuscular Hemoglobin 27.0 L Mean Corpuscular Hemoglobin Concent 31.2 L Red Cell Distribution Width 18.3 H Platelet Count 290 Mean Platelet Volume 11.1 H Neutrophils % 82.3 H Lymphocytes % 11.0 L Monocytes % 4.9 Eosinophils % 0.9 Basophils % 0.4 Nucleated Red Blood Cells % 0.0 Neutrophils # 11.6 H Lymphocytes # 1.5 Monocytes # 0.7 Eosinophils # 0.1 Basophils # 0.1 Nucleated Red Blood Cells # 0.0 Medications Medications Current Medications Acetaminophen (Tylenol Liquid) 650 mg Q4H PRN PO TEMP > 37C; Start 10/12/16 at 14:00 Meperidine HCl (Demerol) 12.5 mg Q4H PRN IV POST OPERATIVE SHIVERING; Start 10/12/16 at 14:00 Meperidine HCl 25 mg 25 mg Q4H PRN IV POST OPERATIVE SHIVERING; Start 10/12/16 at 14:00 Dopamine HCl/ Dextrose 250 ml @ 6.488 mls/ hr TITRATE IV Last administered on 10/16/16t 09:48; Admin Dose 9.731 MLS/HR; Start 10/12/16 at 17:00 Ondansetron HCl (Zofran Inj) 4 mg Q6H PRN IV NAUSEA AND/OR VOMITING; Start 10/12 at 16:30 Pantoprazole (Protonix Iv) 40 mg DAILY@06 IV Last administered on 10/24/16 05: 56; Admin Dose 40 MG; Start 10/13/16 at 06:00 Furosemide (Lasix) 20 mg DAILY IV Last administered on 10/24/16 09:02; Admin Dose 20 MG; Start 10/12/16 at 21:00 Miscellaneous Information 1 ea NOTE XX ; Start 10/14/16 at 11:00 Glucose (Glutose) 15 gm Q15M PRN PO DECREASED GLUCOSE; Start 10/14/16 at 11:00 Glucose (Glutose) 22.5 gm Q15M PRN PO DECREASED GLUCOSE; Start 10/14/16 at 11: 00 Dextrose (D50w Syringe) 25 ml Q15M PRN IV DECREASED GLUCOSE; Start 10/14/16 at 11:00 Dextrose (D50w Syringe) 50 ml Q15M PRN IV DECREASED GLUCOSE; Start 10/14/16 at 11:00 Glucagon (Glucagen) 1 mg Q15M PRN IM DECREASED GLUCOSE; Start 10/14/16 at 11:00 Glucose (Glutose) 15 gm Q15M PRN BUCCAL DECREASED GLUCOSE; Start 10/14/16 at 11 :00 IV Flush (NS 10 ml) 10 ml PRN PRN IV FLUSH LINE; Start 10/15/16 at 12:00 Carvedilol (Coreg) 3.125 mg BID PO Last administered on 10/24/16 09:03; Admin Dose 3.125 MG; Start 10/19/16 at 21:00 Lisinopril (Zestril) 2.5 mg DAILY PO Last administered on 10/24/16 09:03; Admin Dose 2.5 MG; Start 10/20/16 at 09:00 Heparin Sodium (Porcine) 5000 unit 5,000 unit Q8 SC Last administered on 06:00; Admin Dose 5,000 UNIT; Start 10/22/16 at 15:00 Levofloxacin/ Dextrose (Levaquin 750 Mg/ D5W 150 ml (Pmx)) 150 ml @ 100 mls/hr Q24H IVPB Last administered on 10/23/16 11:57; Admin Dose 100 MLS/HR; Start at 12:00 Lactobacillus Acidophilus/ Rhamnosus (Culturelle) 1 cap BID PO Last administered on 10/24/16 09:03; Admin Dose 1 CAP; Start 10/22/16 at 12:00 Enoxaparin Sodium 40 mg 40 mg DAILY SC Last administered on 10/24/16 09:03; Admin Dose 40 MG; Start 10/23/16 at 13:00 Vancomycin HCl (Vancocin) 250 ml @ 125 mls/hr Q12H IVPB Last administered on 02:26; Admin Dose 125 MLS/HR; Start 10/24/16 at 02:00 Miscellaneous Information (*Rx Drug Level Order Reminder*) VANCOMYCIN TROUGH AT 1,300 ON... ONCE ONCE XX ; Start 10/25/16 at 13:00; Stop 10/25/16 at 13:01 Procedures Procedures DATE OF PROCEDURE: This is a 51-year-old gentleman status post cardiopulmonary arrest, unresponsive. DESCRIPTION OF PROCEDURE: Routine EEG was recorded digitally. [id number] and odzac-sw-[id number] montages were recorded and reviewed. All impedances were measured and recorded. Cap electrodes were placed in accordance with International 10-20 system of electrode placement. FINDINGS: Low amplitude background activity was seen. It intermixes with movements of muscle artifacts. Background rhythm seems to consist of beta range activity which may reflect use of medications such as benzodiazepines. At times the background rhythm slow wave 1 to 3 cycles per second. No epileptiform transients were seen. No signs of ongoing electrographic seizures. IMPRESSION: It is the second study, still grossly abnormal, secondary to very low amplitudes, background activity with slowing of background. This all reflects severity of anoxic encephalopathy. The study was degraded by artifact. Dictated By: MARYANN BACA/EDILIA ENA WU October 24, 2016 10:09
--- NOTE | 2016-10-24 11:35 | CONS ---
Date/Time of Note Date/Time of Note DATE: 10/24/16 TIME: 11:33 Assessment/Plan Assessment/Plan Additional Assessment/Plan Assessment recommendations; 1. Patient admitted with cardiac arrest resulting in severe anoxic brain injury. 2. Possibly developed aspiration pneumonia with marked radiological improvement. Continue current treatment. Patient's family has opted for possible terminal extubation soon. Prognosis is dismal. Consultation Date/Type/Reason Admit Date/Time October 12, 2016 at 16:30 Type of Consultation: Pulmonary/critical care Referring Provider: TIFFANIE WILSON 24 HR Interval Summary Free Text/Dictation Patient condition remains critical. Remains unresponsive. Has remained hemodynamically stable. General exam; middle-aged male, orally intubated, unresponsive. Exam/Review of Systems Vital Signs Vitals Vital Signs Date Time Temp Pulse Resp B/P Pulse Ox O2 Delivery O2 Flow Rate FiO2 10/24/16 10:00 64 15 117/91 99 Mechanical Ventilator 10/24/16 08:00 30 10/24/16 08:00 97.6 Intake and Output 10/23/16 10/23/16 10/24/16 15:00 23:00 07:00 Intake Total 390 ml 360 ml 490 ml Output Total 1445 ml 420 ml 310 ml Balance -1055 ml -60 ml 180 ml Exam HEENT exam; supple neck, no JVD. No lymphadenopathy. Midline trachea. No thyromegaly. She has a rightward gaze. Pupils are small bilaterally. Dentition is fair. Chest examined; diminished but clear vessel. S1-S2 audible, no murmurs. Regular rhythm. Abdomen examination; soft, non-distended. No organomegaly. Bowel sounds audible. Extremity examination; no peripheral edema. ATTENDANT HONOR BAR examination; patient is unresponsive. Results Result Diagram: 10/24/16 0450 10/24/16 0430 Results 24 hrs Laboratory Tests Test 10/24/16 00:20 10/24/16 04:30 10/24/16 04:50 Vancomycin Level Trough 17.2 Sodium Level 141 Potassium Level 3.6 Chloride Level 107 Carbon Dioxide Level 25 Anion Gap 13 Blood Urea Nitrogen 20 Creatinine 0.93 Glucose Level 168 Calcium Level 9.1 White Blood Count 14.0 H Red Blood Count 4.40 L Hemoglobin 11.9 L Hematocrit 38.2 L Mean Corpuscular Volume 86.8 Mean Corpuscular Hemoglobin 27.0 L Mean Corpuscular Hemoglobin Concent 31.2 L Red Cell Distribution Width 18.3 H Platelet Count 290 Mean Platelet Volume 11.1 H Neutrophils % 82.3 H Lymphocytes % 11.0 L Monocytes % 4.9 Eosinophils % 0.9 Basophils % 0.4 Nucleated Red Blood Cells % 0.0 Neutrophils # 11.6 H Lymphocytes # 1.5 Monocytes # 0.7 Eosinophils # 0.1 Basophils # 0.1 Nucleated Red Blood Cells # 0.0 Medications Medications Current Medications Acetaminophen (Tylenol Liquid) 650 mg Q4H PRN PO TEMP > 37C; Start 10/12/16 at 14:00 Meperidine HCl (Demerol) 12.5 mg Q4H PRN IV POST OPERATIVE SHIVERING; Start 10/12/16 at 14:00 Meperidine HCl 25 mg 25 mg Q4H PRN IV POST OPERATIVE SHIVERING; Start 10/12/16 at 14:00 Dopamine HCl/ Dextrose 250 ml @ 6.488 mls/ hr TITRATE IV Last administered on 10/16/16 09:48; Admin Dose 9.731 MLS/HR; Start 10/12/16 at 17:00 Ondansetron HCl (Zofran Inj) 4 mg Q6H PRN IV NAUSEA AND/OR VOMITING; Start 10/12 at 16:30 Pantoprazole (Protonix Iv) 40 mg DAILY@06 IV Last administered on 10/24/16 05: 56; Admin Dose 40 MG; Start 10/13/16 at 06:00 Furosemide (Lasix) 20 mg DAILY IV Last administered on 10/24/16 09:02; Admin Dose 20 MG; Start 10/12/16 at 21:00 Miscellaneous Information 1 ea NOTE XX ; Start 10/14/16 at 11:00 Glucose (Glutose) 15 gm Q15M PRN PO DECREASED GLUCOSE; Start 10/14/16 at 11:00 Glucose (Glutose) 22.5 gm Q15M PRN PO DECREASED GLUCOSE; Start 10/14/16 at 11: 00 Dextrose (D50w Syringe) 25 ml Q15M PRN IV DECREASED GLUCOSE; Start 10/14/16 at 11:00 Dextrose (D50w Syringe) 50 ml Q15M PRN IV DECREASED GLUCOSE; Start 10/14/16 at 11:00 Glucagon (Glucagen) 1 mg Q15M PRN IM DECREASED GLUCOSE; Start 10/14/16 at 11:00 Glucose (Glutose) 15 gm Q15M PRN BUCCAL DECREASED GLUCOSE; Start 10/14/16 at 11 :00 IV Flush (NS 10 ml) 10 ml PRN PRN IV FLUSH LINE; Start 10/15/16 at 12:00 Carvedilol (Coreg) 3.125 mg BID PO Last administered on 10/24/16 09:03; Admin Dose 3.125 MG; Start 10/19/16 at 21:00 Lisinopril (Zestril) 2.5 mg DAILY PO Last administered on 10/24/16 09:03; Admin Dose 2.5 MG; Start 10/20/16 at 09:00 Heparin Sodium (Porcine) 5000 unit 5,000 unit Q8 SC Last administered on 06:00; Admin Dose 5,000 UNIT; Start 10/22/16 at 15:00 Levofloxacin/ Dextrose (Levaquin 750 Mg/ D5W 150 ml (Pmx)) 150 ml @ 100 mls/hr Q24H IVPB Last administered on 10/23/16 11:57; Admin Dose 100 MLS/HR; Start at 12:00 Lactobacillus Acidophilus/ Rhamnosus (Culturelle) 1 cap BID PO Last administered on 10/24/16 09:03; Admin Dose 1 CAP; Start 10/22/16 at 12:00 Enoxaparin Sodium 40 mg 40 mg DAILY SC Last administered on 10/24/16 09:03; Admin Dose 40 MG; Start 10/23/16 at 13:00 Vancomycin HCl (Vancocin) 250 ml @ 125 mls/hr Q12H IVPB Last administered on 02:26; Admin Dose 125 MLS/HR; Start 10/24/16 at 02:00 Miscellaneous Information (*Rx Drug Level Order Reminder*) VANCOMYCIN TROUGH AT 1,300 ON... ONCE ONCE XX ; Start 10/25/16 at 13:00; Stop 10/25/16 at 13:01 NEO HARRIS October 24, 2016 11:35
--- NOTE | 2016-10-24 11:58 | PN ---
DATE: 10/24/2016 FOLLOWUP FAMILY CONFERENCE The patient's sister called me last evening. We addressed his code status once again, as well as co mpassionate extubation. She still feels that she would like to pursue a compassionate extubation an d she is to contact me today, 10/24/2016, and we will make those arrangements. Apparently, all [facility] ly members and friends have visited him already. Please refer to my note of 10/23/2016 for full pal liative care review. Dictated By: DESIREE MIRANDA MD LP/NTS Conf#: [id number] DID#: [id number]
[2016-10-24] MEDS: LEVOFLOXACIN 750MG/D5W (PMX) 150 ML IVPB SCH (12:21)
--- NOTE | 2016-10-24 14:20 | CONS ---
Date/Time of Note Date/Time of Note DATE: 10/24/16 TIME: 14:17 Assessment/Plan Assessment/Plan Additional Assessment/Plan S/p Cardiac arrest Ventricular tachycardia Cardiogenic Shock on Dopamine Cardiomegaly Severe acute on chronic congestive heart failure Acute encephalopathy Anemia VDRF Anemia Substance abuse Anoxic Brain Injury Continue Vent Support and aggressive pulmonary Toiletry scheduled for compassionate extubation Continue Nebs as scheduled Continue Lasix Continue Antibiotics Continue Insulin Continue GI and DVT Prophylaxis Consultation Date/Type/Reason Admit Date/Time October 12, 2016 at 16:30 Psychological: no complaints Past Surgical History Past Surgical Hx: other Social History Smoking Status: Former smoker Exam/Review of Systems Vital Signs Vitals Vital Signs Date Time Temp Pulse Resp B/P Pulse Ox O2 Delivery O2 Flow Rate FiO2 10/24/16 12:38 56 10/24/16 12:00 17 110/81 99 Mechanical Ventilator 10/24/16 11:30 30 10/24/16 08:00 97.6 Intake and Output 10/23/16 10/23/16 10/24/16 15:00 23:00 07:00 Intake Total 390 ml 360 ml 490 ml Output Total 1445 ml 420 ml 310 ml Balance -1055 ml -60 ml 180 ml Exam Intubated Neck No JVD CVS RRR, No m/r/g Chest Mechanical breath sounds heard bilaterally Abdomen BS present no organomegaly Ext No pedal edema Results Result Diagram: 10/24/16 0450 10/24/16 0430 Results 24 hrs Laboratory Tests Test 10/24/16 00:20 10/24/16 04:30 10/24/16 04:50 Vancomycin Level Trough 17.2 Sodium Level 141 Potassium Level 3.6 Chloride Level 107 Carbon Dioxide Level 25 Anion Gap 13 Blood Urea Nitrogen 20 Creatinine 0.93 Glucose Level 168 Calcium Level 9.1 White Blood Count 14.0 H Red Blood Count 4.40 L Hemoglobin 11.9 L Hematocrit 38.2 L Mean Corpuscular Volume 86.8 Mean Corpuscular Hemoglobin 27.0 L Mean Corpuscular Hemoglobin Concent 31.2 L Red Cell Distribution Width 18.3 H Platelet Count 290 Mean Platelet Volume 11.1 H Neutrophils % 82.3 H Lymphocytes % 11.0 L Monocytes % 4.9 Eosinophils % 0.9 Basophils % 0.4 Nucleated Red Blood Cells % 0.0 Neutrophils # 11.6 H Lymphocytes # 1.5 Monocytes # 0.7 Eosinophils # 0.1 Basophils # 0.1 Nucleated Red Blood Cells # 0.0 Medications Medications Current Medications Acetaminophen (Tylenol Liquid) 650 mg Q4H PRN PO TEMP > 37C; Start 10/12/16 at 14:00 Meperidine HCl (Demerol) 12.5 mg Q4H PRN IV POST OPERATIVE SHIVERING; Start 10/12/16 at 14:00 Meperidine HCl 25 mg 25 mg Q4H PRN IV POST OPERATIVE SHIVERING; Start 10/12/16 at 14:00 Dopamine HCl/ Dextrose 250 ml @ 6.488 mls/ hr TITRATE IV Last administered on 10/16/16 09:48; Admin Dose 9.731 MLS/HR; Start 10/12/16 at 17:00 Ondansetron HCl (Zofran Inj) 4 mg Q6H PRN IV NAUSEA AND/OR VOMITING; Start 10/12 at 16:30 Pantoprazole (Protonix Iv) 40 mg DAILY@06 IV Last administered on 10/24/16 05: 56; Admin Dose 40 MG; Start 10/13/16 at 06:00 Furosemide (Lasix) 20 mg DAILY IV Last administered on 10/24/16 09:02; Admin Dose 20 MG; Start 10/12/16 at 21:00 Miscellaneous Information 1 ea NOTE XX ; Start 10/14/16 at 11:00 Glucose (Glutose) 15 gm Q15M PRN PO DECREASED GLUCOSE; Start 10/14/16 at 11:00 Glucose (Glutose) 22.5 gm Q15M PRN PO DECREASED GLUCOSE; Start 10/14/16 at 11: 00 Dextrose (D50w Syringe) 25 ml Q15M PRN IV DECREASED GLUCOSE; Start 10/14/16 at 11:00 Dextrose (D50w Syringe) 50 ml Q15M PRN IV DECREASED GLUCOSE; Start 10/14/16 at 11:00 Glucagon (Glucagen) 1 mg Q15M PRN IM DECREASED GLUCOSE; Start 10/14/16 at 11:00 Glucose (Glutose) 15 gm Q15M PRN BUCCAL DECREASED GLUCOSE; Start 10/14/16 at 11 :00 IV Flush (NS 10 ml) 10 ml PRN PRN IV FLUSH LINE; Start 10/15/16 at 12:00 Carvedilol (Coreg) 3.125 mg BID PO Last administered on 10/24/16 09:03; Admin Dose 3.125 MG; Start 10/19/16 at 21:00 Lisinopril (Zestril) 2.5 mg DAILY PO Last administered on 10/24/16 09:03; Admin Dose 2.5 MG; Start 10/20/16 at 09:00 Heparin Sodium (Porcine) 5000 unit 5,000 unit Q8 SC Last administered on 06:00; Admin Dose 5,000 UNIT; Start 10/22/16 at 15:00 Levofloxacin/ Dextrose (Levaquin 750 Mg/ D5W 150 ml (Pmx)) 150 ml @ 100 mls/hr Q24H IVPB Last administered on 10/24/16 12:21; Admin Dose 100 MLS/HR; Start at 12:00 Lactobacillus Acidophilus/ Rhamnosus (Culturelle) 1 cap BID PO Last administered on 10/24/16 09:03; Admin Dose 1 CAP; Start 10/22/16 at 12:00 Enoxaparin Sodium 40 mg 40 mg DAILY SC Last administered on 10/24/16 09:03; Admin Dose 40 MG; Start 10/23/16 at 13:00 Vancomycin HCl (Vancocin) 250 ml @ 125 mls/hr Q12H IVPB Last administered on 02:26; Admin Dose 125 MLS/HR; Start 10/24/16 at 02:00 Miscellaneous Information (*Rx Drug Level Order Reminder*) VANCOMYCIN TROUGH AT 1,300 ON... ONCE ONCE XX ; Start 10/25/16 at 13:00; Stop 10/25/16 at 13:01 JUDIT MEZA M.D. October 24, 2016 14:20
[2016-10-25] VITALS (36 sets, daily range): BP systolic 95–140; BP diastolic 75–104; PULSE 55–65; RESP 10–23
[2016-10-25] MEDS: VANCOMYCIN 1 GM in NS 250 ML IVPB SCH ×2 (01:49→14:51)
[2016-10-25 05:06] LABS: ADD SCAN DIFF NO
[2016-10-25 05:09] LABS: BASOPHIL # 0.1 10^3/ul (0.0-0.1); BASOPHILS % 0.4 % (0.0-2.0); EOSINOPHILS # 0.1 10^3/ul (0.0-0.5); EOSINOPHILS % 0.7 % (0.0-7.0); HEMATOCRIT 36.9 % (42.0-52.0); HEMOGLOBIN 11.6 g/dl (14.0-18.0); LYMPHOCYTES # 1.4 10^3/ul (0.8-2.9); LYMPHOCYTES % 10.5 % (15.0-51.0); MEAN CORPUSCULAR HEMOGLOBIN 27.2 pg (29.0-33.0); MEAN CORPUSCULAR HGB CONC 31.4 g/dl (32.0-37.0); MEAN CORPUSCULAR VOLUME 86.6 fl (82.0-101.0); MEAN PLATELET VOLUME 12.1 fl (7.4-10.4); MONOCYTE # 0.8 10^3/ul (0.3-0.9); MONOCYTES % 5.6 % (0.0-11.0); NEUTROPHIL # 11.1 10^3/ul (1.6-7.5); NEUTROPHILS % 82.2 % (39.0-77.0); PLATELET COUNT 284 10^3/UL (140-415); RED BLOOD COUNT 4.26 10^6/ul (4.70-6.10); RED CELL DISTRIBUTION WIDTH 18.5 % (11.5-14.5); WHITE BLOOD COUNT 13.5 10^3/ul (4.8-10.8)
[2016-10-25] MEDS: PANTOPRAZOLE 40 MG INJ IV SCH (05:27)
[2016-10-25 05:31] LABS: POTASSIUM 3.6 mmol/L (3.5-5.1)
[2016-10-25] MEDS: HEPARIN 5,000 UNIT/0.5 ML VIAL SC SCH (05:31)
[2016-10-25 05:34] LABS: CREATININE 0.96 mg/dl (0.61-1.24)
[2016-10-25] MEDS: LACTOBACILLUS RHAMNOSUS CAP PO SCH ×2 (08:11→20:26)
[2016-10-25] MEDS: FUROSEMIDE 20 MG INJ IV SCH (08:11)
[2016-10-25] MEDS: LISINOPRIL 5 MG TAB PO SCH (08:12)
[2016-10-25] MEDS: ENOXAPARIN 40 MG/0.4 ML SYG SC SCH (08:13)
--- NOTE | 2016-10-25 09:15 | PN ---
Date/Time of Note Date/Time of Note DATE: 10/25/16 TIME: 09:11 Assessment/Plan VTE Prophylaxis VTE Prophylaxis Intervention: LMWH Lines/Catheters IV Catheter Type (from [facility]): PICC Line Central line still needed: Yes Urinary Cath still in place: Yes Reason Cath still needed: other (indicate) Assessment/Plan Assessment/Plan 1. Cardiac arrest with return of circulation: ?2/2 arrhythmia s/p hypothermia protocol 2. Anoxic encephalopathy EEG shows anoxic encephalopathy Neurology consultation appreciated, pt not brain Palliative Care consult appreciated Family is deciding about CODE STATUS and whether or not he would have wanted a tracheostomy, continue to follow up with them 3. Acute respiratory failure secondary to cardiac arrest Continue vent support and weaning , pulmonology consultation appreciated 4. History of nonischemic cardiomyopathy with ejection fraction of 25%.: remains on daily lasix 5. History of substance abuse. 6. Anemia, likely secondary to chronic disease. 7. History of schizophrenia. 8. ?Staph bacteremia: Likely contaminant / However leukocytosis is improving on current antibiotics hence we will continue /sputum cultures growing Mary / add fluconazole 9. Infiltrate on CXR: resp cultures negative Disposition: * Patient remains unresponsive despite being off sedation for a few days with no purposeful movements other than posturing. Patient does not open eyes to stimulation of speech. Prognosis poor * Possible terminal extubation today depending on the family /meanwhile continue all current care CC time : >35mins Prophylaxis: Lovenox Subjective 24 Hr Interval Summary Free Text/Dictation Nursing reports no acute overnight events. No new findings. Subjective hx not possible: pt non-verbal, pt critical status Exam/Review of Systems Vital Signs Vitals Vital Signs Date Time Temp Pulse Resp B/P Pulse Ox O2 Delivery O2 Flow Rate FiO2 10/25/16 08:00 63 10/25/16 06:00 123/87 99 Mechanical Ventilator 10/25/16 05:15 16 30 10/25/16 04:00 98.7 Intake and Output 10/24/16 10/24/16 10/25/16 15:00 23:00 07:00 Intake Total 690 ml 490 ml 460 ml Output Total 1245 ml 160 ml 231 ml Balance -555 ml 330 ml 229 ml Exam Constitutional: No alert, No oriented Eyes: PERRL, sluggish No icteric ENMT: intubated Respiratory: clear to auscultation, diminished breath sounds Cardiovascular: regular rate and rhythm, No murmurs/extra sounds Gastrointestinal: bowel sounds, distended (mildly), soft Genitourinary - Male: other (mild scrotal edema) Extremities: edema (mild in hands and feet) Neurological: unresponsive, patient has been off sedation for a couple of days , has no gag reflex, and has very sluggish pupils, only movements noted is posturing. Results Result Diagram: 10/25/16 0400 10/25/16 0400 Results 24 hrs Laboratory Tests Test 10/25/16 04:00 White Blood Count 13.5 H Red Blood Count 4.26 L Hemoglobin 11.6 L Hematocrit 36.9 L Mean Corpuscular Volume 86.6 Mean Corpuscular Hemoglobin 27.2 L Mean Corpuscular Hemoglobin Concent 31.4 L Red Cell Distribution Width 18.5 H Platelet Count 284 Mean Platelet Volume 12.1 H Neutrophils % 82.2 H Lymphocytes % 10.5 L Monocytes % 5.6 Eosinophils % 0.7 Basophils % 0.4 Nucleated Red Blood Cells % 0.0 Neutrophils # 11.1 H Lymphocytes # 1.4 Monocytes # 0.8 Eosinophils # 0.1 Basophils # 0.1 Nucleated Red Blood Cells # 0.0 Sodium Level 141 Potassium Level 3.6 Chloride Level 105 Carbon Dioxide Level 26 Anion Gap 14 Blood Urea Nitrogen 20 Creatinine 0.96 Glucose Level 170 Calcium Level 9.0 Medications Medications Current Medications Acetaminophen (Tylenol Liquid) 650 mg Q4H PRN PO TEMP > 37C; Start 10/12/16 at 14:00 Meperidine HCl (Demerol) 12.5 mg Q4H PRN IV POST OPERATIVE SHIVERING; Start 10/12/16 at 14:00 Meperidine HCl 25 mg 25 mg Q4H PRN IV POST OPERATIVE SHIVERING; Start 10/12/16 at 14:00 Dopamine HCl/ Dextrose 250 ml @ 6.488 mls/ hr TITRATE IV Last administered on 10/16/16 09:48; Admin Dose 9.731 MLS/HR; Start 10/12/16 at 17:00 Ondansetron HCl (Zofran Inj) 4 mg Q6H PRN IV NAUSEA AND/OR VOMITING; Start 10/12 at 16:30 Pantoprazole (Protonix Iv) 40 mg DAILY@06 IV Last administered on 10/25/16 05: 27; Admin Dose 40 MG; Start 10/13/16 at 06:00 Furosemide (Lasix) 20 mg DAILY IV Last administered on 10/25/16 08:11; Admin Dose 20 MG; Start 10/12/16 at 21:00 Miscellaneous Information 1 ea NOTE XX ; Start 10/14/16 at 11:00 Glucose (Glutose) 15 gm Q15M PRN PO DECREASED GLUCOSE; Start 10/14/16 at 11:00 Glucose (Glutose) 22.5 gm Q15M PRN PO DECREASED GLUCOSE; Start 10/14/16 at 11: 00 Dextrose (D50w Syringe) 25 ml Q15M PRN IV DECREASED GLUCOSE; Start 10/14/16 at 11:00 Dextrose (D50w Syringe) 50 ml Q15M PRN IV DECREASED GLUCOSE; Start 10/14/16 at 11:00 Glucagon (Glucagen) 1 mg Q15M PRN IM DECREASED GLUCOSE; Start 10/14/16 at 11:00 Glucose (Glutose) 15 gm Q15M PRN BUCCAL DECREASED GLUCOSE; Start 10/14/16 at 11 :00 IV Flush (NS 10 ml) 10 ml PRN PRN IV FLUSH LINE; Start 10/15/16 at 12:00 Carvedilol (Coreg) 3.125 mg BID PO Last administered on 10/25/16 08:11; Admin Dose 3.125 MG; Start 10/19/16 at 21:00 Lisinopril 2.5 mg 2.5 mg DAILY PO Last administered on 10/25/16 08:12; Admin Dose 2.5 MG; Start 10/20/16 at 09:00 Levofloxacin/ Dextrose (Levaquin 750 Mg/ D5W 150 ml (Pmx)) 150 ml @ 100 mls/hr Q24H IVPB Last administered on 10/24/16 12:21; Admin Dose 100 MLS/HR; Start at 12:00 Lactobacillus Acidophilus/ Rhamnosus (Culturelle) 1 cap BID PO Last administered on 10/25/16 08:11; Admin Dose 1 CAP; Start 10/22/16 at 12:00 Enoxaparin Sodium 40 mg 40 mg DAILY SC Last administered on 10/25/16 08:13; Admin Dose 40 MG; Start 10/23/16 at 13:00 Vancomycin HCl (Vancocin) 250 ml @ 125 mls/hr Q12H IVPB Last administered on t 01:49; Admin Dose 125 MLS/HR; Start 10/24/16 at 02:00 Miscellaneous Information (*Rx Drug Level Order Reminder*) VANCOMYCIN TROUGH AT 1,300 ON... ONCE ONCE XX ; Start 10/25/16 at 13:00; Stop 10/25/16 at 13:01 ENA WU October 25, 2016 09:15
--- NOTE | 2016-10-25 09:35 | CONS ---
Date/Time of Note Date/Time of Note DATE: 10/25/16 TIME: 09:33 Assessment/Plan Assessment/Plan Additional Assessment/Plan Ventilator setting; AC of 16, tidal volume 500, PEEP of 5, 30% FiO2. Assessment recommendations; 1. Patient admitted with cardiac arrest resulting in severe anoxic brain injury. 2. Possibly some element of aspiration pneumonia with clinical improvement as well. Continue current supportive care. Prognosis is dismal. Patient likely would be terminally extubated sometime soon. Consultation Date/Type/Reason Admit Date/Time October 12, 2016 at 16:30 Type of Consultation: Pulmonary/critical care Referring Provider: TIFFANIE WILSON 24 HR Interval Summary Free Text/Dictation Patient condition remains critical. Patient remains completely unresponsive. However has remained hemodynamically stable. General exam; young male, orally intubated, unresponsive. Currently in no distress. Exam/Review of Systems Vital Signs Vitals Vital Signs Date Time Temp Pulse Resp B/P Pulse Ox O2 Delivery O2 Flow Rate FiO2 10/25/16 09:00 62 16 116/85 99 Mechanical Ventilator 10/25/16 08:00 99.3 10/25/16 05:15 30 Intake and Output 10/24/16 10/24/16 10/25/16 15:00 23:00 07:00 Intake Total 690 ml 490 ml 460 ml Output Total 1245 ml 160 ml 231 ml Balance -555 ml 330 ml 229 ml Exam H EENT exam is; supple neck, no JVD. No lymphadenopathy. Midline trachea. No thyromegaly. Orally intubated. Dentition is fair. Pupils are small bilaterally. There is a rightward gaze. Chest examination; diminished but clear vessel. S1-S2 audible, no murmurs. Regular rhythm. Abdomen examination; soft, nondistended. No organomegaly. Bowel is audible. Extremity examination; no peripheral edema. INFUSION PHARMACIST examination a micro patient remains unresponsive. Results Result Diagram: 10/25/16 0400 10/25/16 0400 Results 24 hrs Laboratory Tests Test 10/25/16 04:00 White Blood Count 13.5 H Red Blood Count 4.26 L Hemoglobin 11.6 L Hematocrit 36.9 L Mean Corpuscular Volume 86.6 Mean Corpuscular Hemoglobin 27.2 L Mean Corpuscular Hemoglobin Concent 31.4 L Red Cell Distribution Width 18.5 H Platelet Count 284 Mean Platelet Volume 12.1 H Neutrophils % 82.2 H Lymphocytes % 10.5 L Monocytes % 5.6 Eosinophils % 0.7 Basophils % 0.4 Nucleated Red Blood Cells % 0.0 Neutrophils # 11.1 H Lymphocytes # 1.4 Monocytes # 0.8 Eosinophils # 0.1 Basophils # 0.1 Nucleated Red Blood Cells # 0.0 Sodium Level 141 Potassium Level 3.6 Chloride Level 105 Carbon Dioxide Level 26 Anion Gap 14 Blood Urea Nitrogen 20 Creatinine 0.96 Glucose Level 170 Calcium Level 9.0 Medications Medications Current Medications Acetaminophen (Tylenol Liquid) 650 mg Q4H PRN PO TEMP > 37C; Start 10/12/16 at 14:00 Meperidine HCl (Demerol) 12.5 mg Q4H PRN IV POST OPERATIVE SHIVERING; Start 10/12/16 at 14:00 Meperidine HCl 25 mg 25 mg Q4H PRN IV POST OPERATIVE SHIVERING; Start 10/12/16 at 14:00 Dopamine HCl/ Dextrose 250 ml @ 6.488 mls/ hr TITRATE IV Last administered on 10/16/16 09:48; Admin Dose 9.731 MLS/HR; Start 10/12/16 at 17:00 Ondansetron HCl (Zofran Inj) 4 mg Q6H PRN IV NAUSEA AND/OR VOMITING; Start 10/12 at 16:30 Pantoprazole (Protonix Iv) 40 mg DAILY@06 IV Last administered on 10/25/16 05: 27; Admin Dose 40 MG; Start 10/13/16 at 06:00 Furosemide (Lasix) 20 mg DAILY IV Last administered on 10/25/16 08:11; Admin Dose 20 MG; Start 10/12/16 at 21:00 Miscellaneous Information 1 ea NOTE XX ; Start 10/14/16 at 11:00 Glucose (Glutose) 15 gm Q15M PRN PO DECREASED GLUCOSE; Start 10/14/16 at 11:00 Glucose (Glutose) 22.5 gm Q15M PRN PO DECREASED GLUCOSE; Start 10/14/16 at 11: 00 Dextrose (D50w Syringe) 25 ml Q15M PRN IV DECREASED GLUCOSE; Start 10/14/16 at 11:00 Dextrose (D50w Syringe) 50 ml Q15M PRN IV DECREASED GLUCOSE; Start 10/14/16 at 11:00 Glucagon (Glucagen) 1 mg Q15M PRN IM DECREASED GLUCOSE; Start 10/14/16 at 11:00 Glucose (Glutose) 15 gm Q15M PRN BUCCAL DECREASED GLUCOSE; Start 10/14/16 at 11 :00 IV Flush (NS 10 ml) 10 ml PRN PRN IV FLUSH LINE; Start 10/15/16 at 12:00 Carvedilol (Coreg) 3.125 mg BID PO Last administered on 10/25/16 08:11; Admin Dose 3.125 MG; Start 10/19/16 at 21:00 Lisinopril 2.5 mg 2.5 mg DAILY PO Last administered on 10/25/16 08:12; Admin Dose 2.5 MG; Start 10/20/16 at 09:00 Levofloxacin/ Dextrose (Levaquin 750 Mg/ D5W 150 ml (Pmx)) 150 ml @ 100 mls/hr Q24H IVPB Last administered on 10/24/16 12:21; Admin Dose 100 MLS/HR; Start at 12:00 Lactobacillus Acidophilus/ Rhamnosus (Culturelle) 1 cap BID PO Last administered on 10/25/16 08:11; Admin Dose 1 CAP; Start 10/22/16 at 12:00 Enoxaparin Sodium 40 mg 40 mg DAILY SC Last administered on 10/25/16 08:13; Admin Dose 40 MG; Start 10/23/16 at 13:00 Vancomycin HCl (Vancocin) 250 ml @ 125 mls/hr Q12H IVPB Last administered on 01:49; Admin Dose 125 MLS/HR; Start 10/24/16 at 02:00 Miscellaneous Information VANCOMYCIN TROUGH AT 1,300 ON... ONCE ONCE XX ; Start 10/25/16 at 13:00; Stop 10/25/16 at 13:01 Fluconazole (Diflucan 200 Mg/ NS (Pmx)) 100 ml @ 100 mls/hr Q24H IVPB ; Start 10/25/16 at 09:30 NEO HARRIS October 25, 2016 09:35
[2016-10-25] MEDS: FLUCONAZOLE 200 MG/NS (PMX) 100 ML IVPB SCH (10:30)
[2016-10-25] MEDS: LEVOFLOXACIN 750MG/D5W (PMX) 150 ML IVPB SCH (12:12)
[2016-10-25] MEDS: POTASSIUM CHLORIDE 50 ML IVPB SCH ×2 (12:20→13:40)
--- NOTE | 2016-10-25 16:08 | PN ---
DATE: 10/25/2016 ASSESSMENT AND RECOMMENDATIONS: The patient's daughter, Lizbeth, has been trying to balance off her f eelings to try and disconnect patient from life support, compared to her extended family's decision to continue with this level of care. She has made a decision that she will discontinue care within the next 24 hours. There are other family members who will be arriving today. Followup will be don e. Continue supportive measures will continue. Dictated By: DESIREE MIRANDA MD LP/NTS Conf#: [id number] DID#: [id number] CC: TIFFANIE WILSON MD;*EndCC*
[2016-10-25] MEDS: MEPERIDINE 25 MG INJ IV PRN (23:59)
[2016-10-26] VITALS (30 sets, daily range): BP systolic 77–143; BP diastolic 62–105; PULSE 57–79; RESP 7–24
[2016-10-26] MEDS: VANCOMYCIN 1 GM in NS 250 ML IVPB SCH ×2 (03:20→14:19)
[2016-10-26] MEDS: PANTOPRAZOLE 40 MG INJ IV SCH (04:41)
[2016-10-26] MEDS: FLUCONAZOLE 200 MG/NS (PMX) 100 ML IVPB SCH (08:49)
[2016-10-26] MEDS: FUROSEMIDE 20 MG INJ IV SCH (08:49)
[2016-10-26] MEDS: LISINOPRIL 5 MG TAB PO SCH (08:49)
[2016-10-26] MEDS: LACTOBACILLUS RHAMNOSUS CAP PO SCH (08:49)
[2016-10-26] MEDS: ENOXAPARIN 40 MG/0.4 ML SYG SC SCH (08:51)
--- NOTE | 2016-10-26 09:53 | PN ---
Date/Time of Note Date/Time of Note DATE: 10/26/16 TIME: 09:50 Assessment/Plan VTE Prophylaxis VTE Prophylaxis Intervention: LMWH Lines/Catheters IV [facility] (from [facility] PICC Line Central line still needed: Yes Urinary Cath still in place: Yes Reason Cath still needed: urinary retention Assessment/Plan Chief Complaint/Hosp Course Assessment/Plan 1. Cardiac arrest with return of circulation: ?2/2 arrhythmia s/p hypothermia protocol 2. Anoxic encephalopathy EEG shows anoxic encephalopathy Neurology consultation appreciated Palliative Care consult appreciated for likely terminal extubation later today 3. Acute respiratory failure secondary to cardiac arrest Continue vent support and weaning , pulmonology consultation appreciated 4. History of nonischemic cardiomyopathy with ejection fraction of 25%.: remains on daily lasix 5. History of substance abuse. 6. Anemia, likely secondary to chronic disease. 7. History of schizophrenia. 8. ?Staph bacteremia: Likely contaminant / However leukocytosis is improving on current antibiotics hence we will continue /sputum cultures growing Mary / fluconazole 9. Infiltrate on CXR: resp cultures negative Disposition: * Patient remains unresponsive despite being off sedation for a few days with no purposeful movements other than posturing. Patient does not open eyes to stimulation of speech. Prognosis poor * for likely terminal extubation today CC time = 35mins Prophylaxis: Lovenox Problems: Subjective 24 Hr Interval Summary Free Text/Dictation Pt still intubated, per palliative team today, likely for terminal extubation today. No acute evets overnight otherwise. Exam/Review of Systems Vital Signs Vitals Vital Signs Date Time Temp Pulse Resp B/P Pulse Ox O2 Delivery O2 Flow Rate FiO2 10/26/16 09:13 62 17 100 30 10/26/16 08:00 98.6 137/104 Mechanical Ventilator Intake and Output 10/25/16 10/25/16 10/26/16 15:00 23:00 07:00 Intake Total 890 ml 760 ml 570 ml Output Total 710 ml 315 ml 315 ml Balance 180 ml 445 ml 255 ml Exam Constitutional: No alert, No oriented Eyes: PERRL, sluggish, No icteric ENMT: intubated Respiratory: clear to auscultation, diminished breath sounds Cardiovascular: regular rate and rhythm, No murmurs/extra sounds Gastrointestinal: bowel sounds, distended (mildly), soft Genitourinary - Male: other (mild scrotal edema) Extremities: edema (mild in hands and feet) Neurological: unresponsive, patient has been off sedation for a couple of days , has no gag reflex, and has very sluggish pupils, only movements noted is posturing. Results Result Diagram: 10/25/16 0400 10/25/16 0400 Results 24 hrs Laboratory Tests Test 10/25/16 13:50 Vancomycin Level Trough 13.0 Medications Medications Current Medications Acetaminophen (Tylenol Liquid) 650 mg Q4H PRN PO TEMP > 37C; Start 10/12/16 at 14:00 Meperidine HCl (Demerol) 12.5 mg Q4H PRN IV POST OPERATIVE SHIVERING Last administered on 10/25/16 23:59; Admin Dose 12.5 MG; Start 10/12/16 at 14:00 Meperidine HCl 25 mg 25 mg Q4H PRN IV POST OPERATIVE SHIVERING; Start 10/12/16 at 14:00 Dopamine HCl/ Dextrose 250 ml @ 6.488 mls/ hr TITRATE IV Last administered on 10/16/16 09:48; Admin Dose 9.731 MLS/HR; Start 10/12/16 at 17:00 Ondansetron HCl (Zofran Inj) 4 mg Q6H PRN IV NAUSEA AND/OR VOMITING; Start 10/12 at 16:30 Pantoprazole (Protonix Iv) 40 mg DAILY@06 IV Last administered on 10/26/16 04: 41; Admin Dose 40 MG; Start 10/13/16 at 06:00 Furosemide (Lasix) 20 mg DAILY IV Last administered on 10/26/16 08:49; Admin Dose 20 MG; Start 10/12/16 at 21:00 Miscellaneous Information 1 ea NOTE XX ; Start 10/14/16 at 11:00 Glucose (Glutose) 15 gm Q15M PRN PO DECREASED GLUCOSE; Start 10/14/16 at 11:00 Glucose (Glutose) 22.5 gm Q15M PRN PO DECREASED GLUCOSE; Start 10/14/16 at 11: 00 Dextrose (D50w Syringe) 25 ml Q15M PRN IV DECREASED GLUCOSE; Start 10/14/16 at 11:00 Dextrose (D50w Syringe) 50 ml Q15M PRN IV DECREASED GLUCOSE; Start 10/14/16 at 11:00 Glucagon (Glucagen) 1 mg Q15M PRN IM DECREASED GLUCOSE; Start 10/14/16 at 11:00 Glucose (Glutose) 15 gm Q15M PRN BUCCAL DECREASED GLUCOSE; Start 10/14/16 at 11 :00 IV Flush (NS 10 ml) 10 ml PRN PRN IV FLUSH LINE; Start 10/15/16 at 12:00 Carvedilol (Coreg) 3.125 mg BID PO Last administered on 10/26/16 08:49; Admin Dose 3.125 MG; Start 10/19/16 at 21:00 Lisinopril 2.5 mg 2.5 mg DAILY PO Last administered on 10/26/16 08:49; Admin Dose 2.5 MG; Start 10/20/16 at 09:00 Levofloxacin/ Dextrose (Levaquin 750 Mg/ D5W 150 ml (Pmx)) 150 ml @ 100 mls/hr Q24H IVPB Last administered on 10/25/16 12:12; Admin Dose 100 MLS/HR; Start at 12:00 Lactobacillus Acidophilus/ Rhamnosus (Culturelle) 1 cap BID PO Last administered on 10/26/16 08:49; Admin Dose 1 CAP; Start 10/22/16 at 12:00 Enoxaparin Sodium 40 mg 40 mg DAILY SC Last administered on 10/26/16 08:51; Admin Dose 40 MG; Start 10/23/16 at 13:00 Vancomycin HCl 250 ml @ 125 mls/hr Q12H IVPB Last administered on 10/26/16 03 :20; Admin Dose 125 MLS/HR; Start 10/24/16 at 02:00 Fluconazole (Diflucan 200 Mg/ NS (Pmx)) 100 ml @ 100 mls/hr Q24H IVPB Last administered on 10/26/16 08:49; Admin Dose 100 MLS/HR; Start 10/25/16 at 09:30 TERRY CASEY October 26, 2016 09:53
--- NOTE | 2016-10-26 10:43 | CONS ---
Date/Time of Note Date/Time of Note DATE: 10/26/16 TIME: 10:40 Assessment/Plan Assessment/Plan Chief Complaint/Hosp Course IMPRESSION: 1. Cardiac arrest-? primary arrythmic event 2. Cardiomyopathy with severely depressed left ventricular ejection fraction. 3. Congestive heart failure, systolic, acute on chronic. 4. Respiratory failure, status post intubation. 5. Encephalopathy. 6. Anemia. 7. Cerebral edema. 8. Initial acidosis, improving. 9. History of ventricular tachycardia. 10. History of substance abuse. 11.Encephalopathy-s/p EEG toxic-metabolic REcc: -Tele -serial ecg's -Continue lasix and follow volume status closely -Continue abx's and f/u cx data -Follow MS closely with ongoing neuro -Low dose ACEI/BB as tolerated for treatment of cardiomyopathy -Possible [employer]/terminal extubation/family discussion-decision ongoing Problems: Consultation Date/Type/Reason Admit Date/Time October 12, 2016 at 16:30 Initial Consult Date 10/12/2016 Type of Consultation: Cardiology Reason for Consultation Cardiac arrest Referring Provider: TIFFANIE WILSON Exam/Review of Systems Vital Signs Vitals Vital Signs Date Time Temp Pulse Resp B/P Pulse Ox O2 Delivery O2 Flow Rate FiO2 10/26/16 09:13 62 17 100 30 10/26/16 08:00 98.6 137/104 Mechanical Ventilator Intake and Output 10/25/16 10/25/16 10/26/16 15:00 23:00 07:00 Intake Total 890 ml 760 ml 570 ml Output Total 710 ml 315 ml 315 ml Balance 180 ml 445 ml 255 ml Exam Review of Systems: CONSTITUTIONAL: No fevers, chills. PULMONARY: No sob CARDIOVASCULAR: No chest pain/palpitations GASTROINTESTINAL: No nausea/vomiting. GENITOURINARY: No hematuria/dysuria. MUSCULOSKELETAL: No myagias/arthalgias. PSYCHIATRIC: The patient denies depression. NEUROLOGIC: encephalopathic Constitutional: other (encephalopathic) Psych: no complaints Head: normocephalic ENMT: mucosa pink and moist Neck: jvd (9 cm water), supple Respiratory: diminished breath sounds (at bases/B) Cardiovascular: regular rate and rhythm Gastrointestinal: non-tender, soft Musculoskeletal: muscle tone (normal) Extremities: edema (none) Neurological: other (No focal deficits) Results Result Diagram: 5/21/17 0400 5/21/17 0400 Results 24 hrs Laboratory Tests Test 10/25/16 13:50 Vancomycin Level Trough 13.0 Medications Medications Current Medications Acetaminophen (Tylenol Liquid) 650 mg Q4H PRN PO TEMP > 37C; Start 10/12/16 at 14:00 Meperidine HCl (Demerol) 12.5 mg Q4H PRN IV POST OPERATIVE SHIVERING Last administered on 10/25/16 23:59; Admin Dose 12.5 MG; Start 10/12/16 at 14:00 Meperidine HCl 25 mg 25 mg Q4H PRN IV POST OPERATIVE SHIVERING; Start 10/12/16 at 14:00 Dopamine HCl/ Dextrose 250 ml @ 6.488 mls/ hr TITRATE IV Last administered on 10/16/16 09:48; Admin Dose 9.731 MLS/HR; Start 10/12/16 at 17:00 Ondansetron HCl (Zofran Inj) 4 mg Q6H PRN IV NAUSEA AND/OR VOMITING; Start 10/12 at 16:30 Pantoprazole (Protonix Iv) 40 mg DAILY@06 IV Last administered on 10/26/16 04: 41; Admin Dose 40 MG; Start 10/13/16 at 06:00 Furosemide (Lasix) 20 mg DAILY IV Last administered on 10/26/16 08:49; Admin Dose 20 MG; Start 10/12/16 at 21:00 Miscellaneous Information 1 ea NOTE XX ; Start 10/14/16 at 11:00 Glucose (Glutose) 15 gm Q15M PRN PO DECREASED GLUCOSE; Start 10/14/16 at 11:00 Glucose (Glutose) 22.5 gm Q15M PRN PO DECREASED GLUCOSE; Start 10/14/16 at 11: 00 Dextrose (D50w Syringe) 25 ml Q15M PRN IV DECREASED GLUCOSE; Start 10/14/16 at 11:00 Dextrose (D50w Syringe) 50 ml Q15M PRN IV DECREASED GLUCOSE; Start 10/14/16 at 11:00 Glucagon (Glucagen) 1 mg Q15M PRN IM DECREASED GLUCOSE; Start 10/14/16 at 11:00 Glucose (Glutose) 15 gm Q15M PRN BUCCAL DECREASED GLUCOSE; Start 10/14/16 at 11 :00 IV Flush (NS 10 ml) 10 ml PRN PRN IV FLUSH LINE; Start 10/15/16 at 12:00 Carvedilol (Coreg) 3.125 mg BID PO Last administered on 10/26/16 08:49; Admin Dose 3.125 MG; Start 10/19/16 at 21:00 Lisinopril 2.5 mg 2.5 mg DAILY PO Last administered on 10/26/16 08:49; Admin Dose 2.5 MG; Start 10/20/16 at 09:00 Levofloxacin/ Dextrose (Levaquin 750 Mg/ D5W 150 ml (Pmx)) 150 ml @ 100 mls/hr Q24H IVPB Last administered on 10/25/16 12:12; Admin Dose 100 MLS/HR; Start at 12:00 Lactobacillus Acidophilus/ Rhamnosus (Culturelle) 1 cap BID PO Last administered on 10/26/16 08:49; Admin Dose 1 CAP; Start 10/22/16 at 12:00 Enoxaparin Sodium 40 mg 40 mg DAILY SC Last administered on 10/26/16 08:51; Admin Dose 40 MG; Start 10/23/16 at 13:00 Vancomycin HCl 250 ml @ 125 mls/hr Q12H IVPB Last administered on 10/26/16 03 :20; Admin Dose 125 MLS/HR; Start 10/24/16 at 02:00 Fluconazole (Diflucan 200 Mg/ NS (Pmx)) 100 ml @ 100 mls/hr Q24H IVPB Last administered on 10/26/16 08:49; Admin Dose 100 MLS/HR; Start 10/25/16 at 09:30 DEXTER ZAMORANO October 26, 2016 10:43
--- NOTE | 2016-10-26 10:47 | CONS ---
Date/Time of Note Date/Time of Note DATE: 10/26/16 TIME: 10:46 Consult Date/Type/Reason Admit Date/Time October 12, 2016 at 16:30 Type of Consultation: pulmonary ICU Ordering Provider: TIFFANIE WILSON Subjective Patient remains minimally responsive on mechanical ventilation Family present at bedside Objective Vital Signs Date Time Temp Pulse Resp B/P Pulse Ox O2 Delivery O2 Flow Rate FiO2 10/26/16 09:13 62 17 100 30 10/26/16 08:00 98.6 137/104 Mechanical Ventilator Intake and Output 10/25/16 10/25/16 10/26/16 15:00 23:00 07:00 Intake Total 890 ml 760 ml 570 ml Output Total 710 ml 315 ml 315 ml Balance 180 ml 445 ml 255 ml Exam PHYSICAL EXAMINATION: GENERAL: Elderly-appearing gentleman, intubated on mechanical ventilation. VITAL SIGNS: As above HEENT: Pupils are nonreactive CARDIAC: S1, S2, no added sounds or murmurs. CHEST: Diminished air entry bilaterally. ABDOMEN: Soft, nontender. No guarding or rebound. EXTREMITIES: No cyanosis, clubbing, edema +1 NEUROLOGIC: Unable to assess. Results/Medications Result Diagram: 10/25/16 0400 10/25/16 0400 Results 24 hrs Laboratory Tests Test 10/25/16 13:50 Vancomycin Level Trough 13.0 Medications Current Medications Acetaminophen (Tylenol Liquid) 650 mg Q4H PRN PO TEMP > 37C; Start 10/12/16 at 14:00 Meperidine HCl (Demerol) 12.5 mg Q4H PRN IV POST OPERATIVE SHIVERING Last administered on 10/25/16 23:59; Admin Dose 12.5 MG; Start 10/12/16 at 14:00 Meperidine HCl 25 mg 25 mg Q4H PRN IV POST OPERATIVE SHIVERING; Start 10/12/16 at 14:00 Dopamine HCl/ Dextrose 250 ml @ 6.488 mls/ hr TITRATE IV Last administered on 10/16/16 09:48; Admin Dose 9.731 MLS/HR; Start 10/12/16 at 17:00 Ondansetron HCl (Zofran Inj) 4 mg Q6H PRN IV NAUSEA AND/OR VOMITING; Start 10/12 at 16:30 Pantoprazole (Protonix Iv) 40 mg DAILY@06 IV Last administered on 10/26/16 04: 41; Admin Dose 40 MG; Start 10/13/16 at 06:00 Furosemide (Lasix) 20 mg DAILY IV Last administered on 10/26/16 08:49; Admin Dose 20 MG; Start 10/12/16 at 21:00 Miscellaneous Information 1 ea NOTE XX ; Start 10/14/16 at 11:00 Glucose (Glutose) 15 gm Q15M PRN PO DECREASED GLUCOSE; Start 10/14/16 at 11:00 Glucose (Glutose) 22.5 gm Q15M PRN PO DECREASED GLUCOSE; Start 10/14/16 at 11: 00 Dextrose (D50w Syringe) 25 ml Q15M PRN IV DECREASED GLUCOSE; Start 10/14/16 at 11:00 Dextrose (D50w Syringe) 50 ml Q15M PRN IV DECREASED GLUCOSE; Start 10/14/16 at 11:00 Glucagon (Glucagen) 1 mg Q15M PRN IM DECREASED GLUCOSE; Start 10/14/16 at 11:00 Glucose (Glutose) 15 gm Q15M PRN BUCCAL DECREASED GLUCOSE; Start 10/14/16 at 11 :00 IV Flush (NS 10 ml) 10 ml PRN PRN IV FLUSH LINE; Start 10/15/16 at 12:00 Carvedilol (Coreg) 3.125 mg BID PO Last administered on 10/26/16 08:49; Admin Dose 3.125 MG; Start 10/19/16 at 21:00 Lisinopril 2.5 mg 2.5 mg DAILY PO Last administered on 10/26/16 08:49; Admin Dose 2.5 MG; Start 10/20/16 at 09:00 Levofloxacin/ Dextrose (Levaquin 750 Mg/ D5W 150 ml (Pmx)) 150 ml @ 100 mls/hr Q24H IVPB Last administered on 10/25/16 12:12; Admin Dose 100 MLS/HR; Start at 12:00 Lactobacillus Acidophilus/ Rhamnosus (Culturelle) 1 cap BID PO Last administered on 10/26/16 08:49; Admin Dose 1 CAP; Start 10/22/16 at 12:00 Enoxaparin Sodium 40 mg 40 mg DAILY SC Last administered on 10/26/16 08:51; Admin Dose 40 MG; Start 10/23/16 at 13:00 Vancomycin HCl 250 ml @ 125 mls/hr Q12H IVPB Last administered on 10/26/16 03 :20; Admin Dose 125 MLS/HR; Start 10/24/16 at 02:00 Fluconazole (Diflucan 200 Mg/ NS (Pmx)) 100 ml @ 100 mls/hr Q24H IVPB Last administered on 10/26/16 08:49; Admin Dose 100 MLS/HR; Start 10/25/16 at 09:30 Assessment/Plan Chief Complaint/Hosp Course IMPRESSION AND PLAN: 1. Cardiopulmonary arrest. 2. Possible aspiration pneumonia. 3. Severe anoxic brain injury 4. History of congestive heart failure and atrial fibrillation. Decreased ejection fraction 5. History of substance abuse PLAN: 1. Continue mechanical ventilation. 2. Broad-spectrum antibiotics, for aspiration pneumonia 3. DVT and GI prophylaxis 4. Continue tube feeding Disposition Continue ICU care Terminal extubation today discussed with family and palliative care Problems: TRUNG LORA MD, [facility] October 26, 2016 10:47
[2016-10-26] MEDS: MEPERIDINE 25 MG INJ IV PRN (10:57)
[2016-10-26] MEDS: LEVOFLOXACIN 750MG/D5W (PMX) 150 ML IVPB SCH (14:17)
[2016-10-26] MEDS: LORAZEPAM (MDV) 60 MG in DEXTROSE 5% 30 ML IV SCH (17:18)
[2016-10-26] MEDS: morphine (DRIP) 100 MG/100 ML 100 ML IV SCH (17:18)
--- NOTE | 2016-10-26 17:58 | PN ---
DATE: 10/26/2016 I have had an extensive conversation with patient's sister, Lizbeth. The plan today is to extubate, d o a compassionate extubation on Mr. Hopkins. She has support system participants and the discussi on is just she and one friend. I had an extensive conversation with on 10/25/2016. Her fears, her hope, successful quality of life for her brother have been addressed as well as any caregiver concer ns. The patient has no prognosis for an acceptable quality of life according to family. There are no pain or symptom management issues at this point or ethical issues. Patient's code status is DO N OT RESUSCITATE and we will proceed with compassionate extubation when the patient's sister is ready. Dictated By: DESIREE MIRANDA MD, LP/EDILIA Conf#: [id number] DID#: [id number]
[2016-10-27] VITALS: BP 112/82; PULSE 78; PULSE 80; RESP 8
[2016-10-27] MEDS: LORAZEPAM (MDV) 60 MG in DEXTROSE 5% 30 ML IV SCH (00:59)
[2016-10-27] MEDS: morphine (DRIP) 100 MG/100 ML 100 ML IV SCH (01:04)
[2016-10-27 01:30] VITALS: BP 102/68; PULSE 79; RESP 17
[2016-10-27] MEDS ORDERED: SCOPOLAMINE 1.5 MG PATCH TRANSDERM SCH (01:30)
--- NOTE | 2016-10-27 09:55 | CONS ---
Date/Time of Note Date/Time of Note DATE: 10/27/16 TIME: 09:53 Assessment/Plan Assessment/Plan Additional Assessment/Plan 1. Cardiac arrest-? primary arrythmic event - no CP now - off tele 2. Cardiomyopathy with severely depressed left ventricular ejection fraction- ICD eval (not able to consent) 3. Congestive heart failure, systolic, acute on chronic- better now. 4. Respiratory failure, status post intubation- now extubated. 5. Encephalopathy- chronic. 6. Anemia. 7. Cerebral edema. 8. Initial acidosis, improving. 9. History of ventricular tachycardia. 10. History of substance abuse. 11.Encephalopathy-s/p EEG toxic-metabolic Consultation Date/Type/Reason Admit Date/Time October 12, 2016 at 16:30 Type of Consultation: pulmonary ICU Referring Provider: TIFFANIE WILSON 24 HR Interval Summary Free Text/Dictation NO acute change - stable fluid status - no CP noted. ROS: No fever, no chills, no nausea, no vomiting, no diarrhea/constipation No recent weight changes No chest pain, no PND, no orthopnea No dizziness, blurred vision No thirst, no heat or cold intolerance Per nurse Exam/Review of Systems Vital Signs Vitals Vital Signs Date Time Temp Pulse Resp B/P Pulse Ox O2 Delivery O2 Flow Rate FiO2 10/27/16 01:30 96.5 79 17 102/68 91 Nasal Cannula 2.0 10/26/16 15:15 50 Intake and Output 10/26/16 10/26/16 10/27/16 15:00 23:00 07:00 Intake Total 1040 ml 677 ml 48 ml Output Total 605 ml 350 ml Balance 435 ml 327 ml 48 ml Exam General: WN/WD/NAD, AOx confused HEENT: Unicetric/atraumatic/EOMI (does not follow commands) NECK: JVD elevated, no thyromegaly Lymph: no lymphadenopathy HEART: regular with no S3, II/ systolic murmur at apex LUNGS: Coarse sounds ABD: soft, NT, ND, +BS : Intact Neuro: non focal SKIN: chronic changes EXT: trace edema Results Result Diagram: 10/25/16 0400 10/25/16 0400 Medications Medications Current Medications Morphine Sulfate/ Sodium Chloride 100 ml @ 1 mls/hr TITRATE IV Last administered on 10/27/16t 01:04; Admin Dose 10 MLS/HR; Start 10/26/16 at 16:30 Lorazepam/Dextrose (Ativan/D5W) 60 ml @ 1 mls/hr TITRATE IV Last administered on 10/27/16 00:59; Admin Dose 2 MLS/HR; Start 10/26/16 at 17:00 Scopolamine (Transderm-Scop) 1 patch Q72H TRANSDERM Last administered on 01:38; Admin Dose 1 PATCH; Start 10/27/16 at 01:30 ROEL BLACK MD October 27, 2016 09:55
== END 2016-10-27 05:10 | disposition expired | DRG 308 ==
LOC: E/R 12:34 → ICU 16:30 → PP2 10-27 00:40
PROVIDERS: ADMIT Internal Medicine; ATTEND Internal Medicine
PROC: 0BH17EZ Insertion of Endotracheal Airway into Trachea, Via Natural or Artificial Opening (ICD-10-PCS; principal; 2016-10-12)
PROC: 5A1955Z Respiratory Ventilation, Greater than 96 Consecutive Hours (ICD-10-PCS; 2016-10-12)
PROC: 02HV33Z Insertion of Infusion Device into Superior Vena Cava, Percutaneous Approach (ICD-10-PCS; 2016-10-15)
DX: I49.01 Ventricular fibrillation (principal); J96.00 Acute respiratory failure, unspecified whether with hypoxia or hypercapnia; G93.6 Cerebral edema; R57.0 Cardiogenic shock; J69.0 Pneumonitis due to inhalation of food and vomit; G92 Toxic encephalopathy; I50.23 Acute on chronic systolic (congestive) heart failure; R40.2432 Glasgow coma scale score 3-8, at arrival to emergency department; I42.9 Cardiomyopathy, unspecified; T68.XXXA Hypothermia, initial encounter; G93.1 Anoxic brain damage, not elsewhere classified; E87.2 Acidosis; F20.9 Schizophrenia, unspecified; Z66 Do not resuscitate; Z86.73 Personal history of transient ischemic attack (TIA), and cerebral infarction without residual deficits; I25.10 Atherosclerotic heart disease of native coronary artery without angina pectoris; Z87.891 Personal history of nicotine dependence; I44.0 Atrioventricular block, first degree; I45.10 Unspecified right bundle-branch block; D63.8 Anemia in other chronic diseases classified elsewhere; Z51.5 Encounter for palliative care; B95.8 Unspecified staphylococcus as the cause of diseases classified elsewhere
CPT/HCPCS: 31500; 36569; 36600; 70450; 71010; 76937; 80048; 80053; 80061; 80162; 80202; 80307; 81001; 81003; 82150; 82310; 82550; 82553; 82803; 82962; 83036; 83605; 83690; 83735; 84100; 84484; 85025; 85384; 85610; 85730; 87040; 87070; 87081; 87086; 89220; 92950; 93005; 93306; 93970; 94002; 94003; 94770; 96365; 96366; 96367; 96375; 96376; J1940; C9113; J0171; J1265; J1644; J1650; J1815; J1956; J2060; J2175; J2270; J2543; J3370; J3475; J3480; J7030; J7040; J7042; J7050; J7070